=== PATIENT | female | born 1940 | race Caucasian/White ===

== ENCOUNTER 2016-08-29 09:30 | Observation (INO) | payer MEDICARE, OTHER ==
[~2016-08-29] VITALS: Ht 157.5 cm; Wt 79.0 kg
[~2016-08-29 09:30] MED LIST: ACET325T45 PO; ASPI-664 PO; CALC500T99 PO; CANA100T PO; CEPH-443 PO; CLOP75TA27 PO; DEXL60CA2 PO; DICL100G37 TOP; DOCU-103 PO; DONE5TAB7 PO; ERGO500014 PO; FAMO40TA52 PO; GEMF600T60 PO; GLIM4TAB PO; INSU100V23 SC; ISOS30TA18 PO; LANT3I SC; MEMA5TAB PO; METF500T4 PO; METH10TA5 PO; METO50TA16 PO; METO5TAB58 PO; RAMI5CAP46 PO; SMV40T PO; TOLT4CAP13 PO
[2016-08-29] MEDS ORDERED: SOD CHLORIDE 0.9% 1,000 ML IV STA (09:52)
[2016-08-29 10:08] LABS: ADD SCAN DIFF NO
[2016-08-29 10:11] LABS: BASOPHILS % 0.4 % (0.0-2.0); EOSINOPHILS # 0.1 10^3/ul (0.0-0.5); EOSINOPHILS % 2.5 % (0.0-7.0); HEMATOCRIT 38.2 % (37.0-47.0); HEMOGLOBIN 12.6 g/dl (12.0-16.0); LYMPHOCYTES % 17.5 % (15.0-51.0); MEAN CORPUSCULAR HEMOGLOBIN 29.1 pg (29.0-33.0); MEAN CORPUSCULAR VOLUME 88.2 fl (82.0-101.0); MEAN PLATELET VOLUME 9.5 fl (7.4-10.4); MONOCYTE # 0.6 10^3/ul (0.3-0.9); MONOCYTES % 11.6 % (0.0-11.0); NEUTROPHIL # 3.8 10^3/ul (1.6-7.5); NEUTROPHILS % 67.8 % (39.0-77.0); PLATELET COUNT 203 10^3/UL (140-415); RED BLOOD COUNT 4.33 10^6/ul (4.20-5.40); WHITE BLOOD COUNT 5.5 10^3/ul (4.8-10.8)
[2016-08-29 10:23] LABS: INR 0.9; PROTIME 12.1 Sec (12.2-14.2); PT RATIO 0.9
--- NOTE | 2016-08-29 10:23 | RADRPT ---
PROCEDURE: XR Chest. CLINICAL INDICATION: Altered Mental Status TECHNIQUE: Single frontal chest x-ray. COMPARISON: 07/24/2014 FINDINGS: The lungs are clear of acute infiltrates, edema, effusions, or masses. Calcific atherosclerosis of t he aorta is present.. The cardiomediastinal silhouette is unremarkable. The osseous structures are intact. IMPRESSION: No acute cardiopulmonary disease. RPTAT: VV .Eran Mendoza MD, MD Date Time Electronically viewed and signed by .Eran Mendoza MD, on 08/29/2016 10:22 .L/
[2016-08-29 10:24] LABS: PARTIAL THROMBOPLASTIN TIME 25.2 Sec (25.0-35.0)
[2016-08-29 10:25] LABS: ALANINE AMINOTRANSFERASE 26 IU/L (13-69); ALKALINE PHOSPHATASE 83 IU/L (42-121); BLOOD UREA NITROGEN 24 mg/dl (7-20); GLUCOSE 203 mg/dl (70-220)
[2016-08-29 10:26] LABS: SALICYLATE < 1.0 mg/dl (5.0-30.0)
[2016-08-29] MEDS ORDERED: DOCU-144 PO (10:56)
[2016-08-29 10:57] LABS: TROPONIN-I < 0.012 ng/ml (0.00-0.12)
[2016-08-29] MEDS ORDERED: NOVO3I SC (10:59)
[2016-08-29] MEDS ORDERED: LANT3I SC (10:59)
[2016-08-29] MEDS ORDERED: TAP5 PO (11:02)
[2016-08-29] MEDS ORDERED: SPIR25TA PO (11:05)
[2016-08-29] MEDS ORDERED: DICL50TA11 PO (11:06)
[2016-08-29] MEDS ORDERED: ROSU20TA PO (11:07)
[2016-08-29] MEDS ORDERED: ICOS1CAP PO (11:07)
[2016-08-29] MEDS ORDERED: OMEP20CA16 PO (11:08)
[2016-08-29] MEDS ORDERED: FURO-110 PO (11:08)
[2016-08-29] MEDS ORDERED: SITA1TAB PO (11:09)
[2016-08-29] MEDS ORDERED: APR50 PO (11:10)
[2016-08-29] MEDS ORDERED: SOLI5TAB5 PO (11:11)
[2016-08-29] MEDS ORDERED: GABA100C14 PO (11:11)
--- NOTE | 2016-08-29 11:11 | ERA ---
ER Documentation Chief Complaint Date/Time DATE: 08/29/16 TIME: 11:09 Chief Complaint aloc since yest evening HPI 76-year-old female history of diabetes who presents with altered mental status. The patient's daughter describes multiple falls over the past several months that have been increasing in frequency. The patient over the past 24-48 hours has been generally weak. She feels that she cannot move her bilateral lower extremities consistently. The daughter possibly noticed a facial droop earlier this morning with complete resolution. She denies any fevers, chills, chest pain, shortness of breath. ROS All systems reviewed and are negative except as per history of present illness. Medications Home Meds Reported Medications Olopatadine HCl (Pazeo) 2.5 Ml Drops, 2.5 ML BOTH EYES DAILY, BOTTLE 08/29/16 Cyclosporine (RESTASIS) 1 Each Droperette, 1 DROP BOTH EYES Q12, #1 BOX 08/29/16 Triamcinolone Acetonide* (Kenalog*) 0.5%-15GM Cr, 1 APPLIC TOP DAILY, #1 BOTTLE APPLY TO BACK 08/29/16 Solifenacin* (Vesicare*) 5 Mg Tablet, 5 MG PO DAILY, TAB 08/29/16 Gabapentin* (Gabapentin*) 100 Mg Capsule, 100 MG PO BID, #90 CAP 08/29/16 Hydralazine Hcl* (Hydralazine Hcl*) 50 Mg Tab, 50 MG PO TID Y for ELEVATED BLOOD PRESSURE, #90 TAB IF BLOOD PRESSURE IS GREATER THAN 150 08/29/16 Sitagliptin Phos/Metformin HCl (Janumet 50-500 mg Tablet) 1 Each Tablet, 1 EACH PO DAILY, TAB 08/29/16 Furosemide* (Lasix*) 20 Mg Tablet, 20 MG PO DAILY, TAB 08/29/16 Omeprazole* (Omeprazole*) 20 Mg Capsule.dr, 20 MG PO DAILY, #30 CAP 08/29/16 Rosuvastatin Calcium* (Crestor*) 20 Mg Tablet, 20 MG PO QHS, #30 TAB 08/29/16 Icosapent Ethyl (VASCEPA) 1 Gm Capsule, 2 GM PO BID, CAP 08/29/16 Diclofenac Sodium* (Diclofenac Sodium*) 50 Mg Tablet.dr, 50 MG PO BID, #60 TAB 08/29/16 Spironolactone* (Aldactone*) 25 Mg Tablet, 25 MG PO DAILY, #30 TAB 08/29/16 Methimazole* (Methimazole*) 5 Mg Tablet, 5 MG PO DAILY, TAB 08/29/16 Insulin Aspart* (Novolog Insulin Pen*) 100 Unit/Ml Soln, 10 UNIT SC WITH MEALS, EA 08/29/16 Insulin Glargine* (Lantus*) 100 Unit/Ml Soln, 61 UNIT SC DAILY, #1 VIAL 08/29/16 Docusate Sodium* (Colace*) 100 Mg Capsule, 100 MG PO DAILY, #30 CAP 08/29/16 Isosorbide Dinitrate* (Isosorbide Dinitrate*) 30 Mg Tablet, 30 MG PO DAILY, TAB 07/24/14 Famotidine* (Famotidine*) 40 Mg Tablet, 40 MG PO DAILY, TAB 07/24/14 Ramipril (Ramipril) 5 Mg Capsule, 5 MG PO DAILY, CAP 07/24/14 Metoprolol Succinate* (Toprol XL*) 50 Mg Tab.er.24h, 50 MG PO DAILY, TAB 07/24/14 Glimepiride* (Glimepiride*) 4 Mg Tablet, 4 MG PO BID, TAB 07/24/14 Clopidogrel Bisulfate (Clopidogrel) 75 Mg Tablet, 75 MG PO DAILY, TAB 07/24/14 Calcium Carbonate (Mdsh-Dpf-430) 1 Tab Tablet, 1 TAB PO TID 07/24/14 Ergocalciferol* (Drisdol* (Vitamin D2)) 50,000 Unit Capsule, 46206 UNIT PO Q7D, CAP 07/24/14 Aspirin* (Aspirin* EC) 81 Mg Tablet.dr, 81 MG PO DAILY, TAB 07/24/14 Discontinued Reported Medications Methimazole* (Methimazole*) 10 Mg Tablet, 20 MG PO QPM, TAB 07/24/14 Methimazole* (Methimazole*) 10 Mg Tablet, 15 MG PO QAM, TAB 07/24/14 Memantine* (Namenda*) 5 Mg Tablet, 5 MG PO BID, TAB 07/24/14 Insulin Regular, Human* (Novolin R*) 100 U/Ml Vial, 0 SC SLIDING SCALE AC, VIAL 07/24/14 Insulin Glargine* (Lantus*) 100 Unit/Ml Soln, 20 UNIT SC QPM, EA 07/24/14 Insulin Glargine* (Lantus*) 100 Unit/Ml Soln, 50 UNIT SC QAM, EA 07/24/14 Dexlansoprazole (Dexilant) 60 Mg Cap., 60 MG PO DAILY, CAP 07/24/14 Canagliflozin (Invokana) 100 Mg Tablet, 100 MG PO DAILY, TAB 07/24/14 Donepezil* (Donepezil*) 5 Mg Tablet, 5 MG PO DAILY, TAB 07/24/14 Metformin* (Glucophage*) 500 Mg Tab, 500 MG PO BID, TAB 07/24/14 Simvastatin (Simvastatin) 40 Mg Tablet, 40 MG PO HS, TAB 07/24/14 Metoclopramide* (Reglan*) 5 Mg Tablet, 5 MG PO TID, TAB 07/24/14 Gemfibrozil* (Gemfibrozil*) 600 Mg Tablet, 600 MG PO BID, TAB 07/24/14 Acetaminophen* (Acetaminophen*) 325 Mg Tablet, 325 MG PO Q4H Y for PAIN AND OR ELEVATED TEMP, TAB 07/24/14 Docusate Sodium (Docusil) 100 Mg Capsule, 100 MG PO BID 07/24/14 Tolterodine Tartrate* (Tolterodine Tartrate* ER) 4 Mg Cap.er.24h, 4 MG PO DAILY , CAP 07/24/14 Diclofenac Sodium* (Voltaren* Gel) 1% -100 Gm Gel, 2 GM TOP QID, TUB 07/24/14 Discontinued Scripts Cephalexin* (Keflex*) 500 Mg Capsule, 500 MG PO BID for 5 Days, CAP Prov:VIDAL TEMPLETON 07/26/14 Allergies Allergies: Coded Allergies: No Known Allergy (Unverified , 08/29/16) PMhx/Soc History of Surgery: Yes (hysterectomy, appendectomy,cholecystectomy) Anesthesia Reaction: No Hx 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 Disorder: Yes Hx Respiratory Disorders: No Hx Cardiac Disorders: Yes (HTN, CVA ) Hx Psychiatric Problems: Yes Hx Miscellaneous Medical Probl: Yes (DM,hypothyroidism) Hx Alcohol Use: No Hx Substance Use: No Hx Tobacco Use: No Smoking Status: Unknown if ever smoked FmHx Family History: diabetes Physical Exam Vitals Vital Signs Date Time Temp Pulse Resp B/P Pulse Ox O2 Delivery O2 Flow Rate FiO2 08/29/16 13:08 Nasal Cannula 2 08/29/16 13:00 98.3 69 20 150/70 97 Room Air 08/29/16 09:40 97.9 87 20 145/64 94 Physical Exam General: Well developed, well nourished, no acute distress Head: Normocephalic, atraumatic. Eyes: Pupils equally reactive, EOM intact ENT: Moist mucous membranes Neck: Supple, no lymphadenopathy Respiratory: Lungs clear bilaterally, no distress Cardiovascular: RRR, no murmurs, rubs, or gallops Abdominal: Soft, non-tender, non-distended, no peritoneal signs : Deferred MSK: No edema, no unilateral swelling, 4/5 strength diffusely without focal deficits Neurologic: Alert and oriented, moving all extremities, normal speech, no focal weakness, no cerebellar signs, no pronator drift to all 4 extremities Skin: No rash Psych: Normal mood Result Diagram: 08/29/16 1000 08/29/16 1000 Results 24 hrs Laboratory Tests Test 08/29/16 10:00 08/29/16 10:05 08/29/16 10:59 White Blood Count 5.510^3/ul Red Blood Count 4.3310^6/ul Hemoglobin 12.6g/dl Hematocrit 38.2% Mean Corpuscular Volume 88.2fl Mean Corpuscular Hemoglobin 29.1pg Mean Corpuscular Hemoglobin Concent 33.0g/dl Red Cell Distribution Width 14.0% Platelet Count 64023^3/UL Mean Platelet Volume 9.5fl Neutrophils % 67.8% Lymphocytes % 17.5% Monocytes % 11.6% Eosinophils % 2.5% Basophils % 0.4% Nucleated Red Blood Cells % 0.0/100WBC Neutrophils # 3.810^3/ul Lymphocytes # 1.010^3/ul Monocytes # 0.610^3/ul Eosinophils # 0.110^3/ul Basophils # 0.010^3/ul Nucleated Red Blood Cells # 0.010^3/ul Prothrombin Time 12.1Sec Prothrombin Time Ratio 0.9 INR International Normalized Ratio 0.90 Activated Partial Thromboplast Time 25.2Sec Sodium Level 142mmol/L Potassium Level 4.4mmol/L Chloride Level 102mmol/L Carbon Dioxide Level 27mmol/L Anion Gap 17 Blood Urea Nitrogen 24mg/dl Creatinine 1.17mg/dl Glucose Level 203mg/dl Calcium Level 9.0mg/dl Total Bilirubin 0.2mg/dl Direct Bilirubin 0.00mg/dl Indirect Bilirubin 0.2mg/dl Aspartate Amino Transf (AST/SGOT) 24IU/L Alanine Aminotransferase (ALT/SGPT) 26IU/L Alkaline Phosphatase 83IU/L Troponin I < 0.012ng/ml Total Protein 7.1g/dl Albumin 3.8g/dl Globulin 3.30g/dl Albumin/Globulin Ratio 1.15 Free Thyroxine Index 2.91ug/ml Thyroxine (T4) 7.9ug/dl Triiodothyronine (T3) Uptake 36.8% Salicylates Level < 1.0mg/dl Acetaminophen Level < 10.0ug/ml Ethyl Alcohol Level < 10.0mg/dl Bedside Glucose 184mg/dL Urine Color YELLOW Urine Clarity CLEAR Urine pH 5.5 Urine Specific [place] >=1.030 Urine Ketones TRACE Urine Nitrite NEGATIVE Urine Bilirubin NEGATIVE Urine Urobilinogen 0.2 E.U./dL Urine Leukocyte Esterase NEGATIVE Urine Microscopic RBC NONE SEEN/HPF Urine Microscopic WBC NONE SEEN/HPF Urine Hemoglobin NEGATIVE Urine Glucose NEGATIVE% Urine Total Protein TRACE Urine Opiates Screen Negative Urine Barbiturates Negative Urine Amphetamines Screen Negative Urine Benzodiazepines Screen Negative Urine Cocaine Screen Negative Urine Cannabinoids Negative Current Medications Medications (Trade) Dose Ordered Sig/Elizabeth Route PRN Reason Start Time Stop Time Status Last Admin Dose Admin Sodium Chloride (NS) 1,000 ml @ 1,000 mls/hr Q1H STAT IV 08/29/16 09:52 08/29/16 10:51 DC 08/29/16 10:12 Ondansetron HCl (Zofran Inj) 4 mg ER BRIDGE PRN IV NAUSEA AND/OR VOMITING 08/29/16 13:00 08/30/16 12:59 Acetaminophen (Tylenol Tab) 650 mg ER BRIDGE PRN PO MILD PAIN/FEVER 08/29/16 13:00 08/30/16 12:59 Procedures/MDM EKG, MONITORS, & DIAGNOSTIC IMAGING: EKG: I reviewed and interpreted a 12-lead EKG. Rhythm: Normal sinus rhythm Ectopy: None Intervals: No abnormalities ST segments: No elevations or depressions T waves: No contiguous inversions Chest x-ray: I reviewed and interpreted a 1 view of the chest Mediastinum: No enlargement Cardiac silhouette: No cardiomegaly Airspace: Clear lung vargas bilaterally without evidence of pneumothorax Bones: No evidence of fracture CT brain: No acute intracranial process LAB INTERPRETATION: No leukocytosis, negative troponin MEDICAL DECISION MAKING: The patient presents with frequent falls, generalized weakness. Broad differential including urinary tract infection, subacute stroke, TIA, acute coronary syndrome, progression of diabetic neuropathy among others. Given report of possible facial droop with resolution the patient may be at risk for TIA. The patient will benefit from inpatient hospitalization, risk stratification, MRI imaging. No focal deficit currently that would warrant stroke code activation. Patient is not a TPA candidate given rapidly resolving symptoms. NIH of 0 currently. ER COURSE: The patient remains hemodynamically stable. CT imaging is negative. The patient will be admitted for further management. Aspirin provided. Patient will be admitted for further management of weakness, falls, TIA I kept the patient and/or family informed of laboratory and diagnostic imaging results throughout the emergency room course. DISPOSITION PLAN: Telemetry admission for management of potential TIA CONSULTATION: Accepting care team and consultations: I discussed the current laboratory data, diagnostic imaging and emergency care provided. Admitting team: Dr. Suazo Admitting team indication: Insurance directed Departure Diagnosis: Primary Impression: TIA (transient ischemic attack) Qualified Code: G45.9 - Transient cerebral ischemia, unspecified type Additional Impression: Generalized weakness Condition: Stable CONCEPCION OATES MD Aug 29, 2016 11:11
[2016-08-29] MEDS ORDERED: KENC TOP (11:12)
[2016-08-29 11:13] LABS: ADD UMIC YES; URINE BILIRUBIN (Dip) NEGATIVE (NEGATIVE); URINE BLOOD (Dip) NEGATIVE (NEGATIVE); URINE COLOR YELLOW (YELLOW); URINE GLUCOSE (Dip) NEGATIVE (NEGATIVE); URINE KETONES (Dip) TRACE (NEGATIVE); URINE LEUKOCYTE ESTERASE (Dip) NEGATIVE (NEGATIVE); URINE NITRITE (Dip) NEGATIVE (NEGATIVE); URINE TOTAL PROTEIN (Dip) TRACE (NEGATIVE); URINE UROBILINOGEN (Dip) 0.2 E.U./dL (0.1-1.0)
[2016-08-29] MEDS ORDERED: CYCL1DRO BOTH EYES (11:13)
[2016-08-29] MEDS ORDERED: OLOP2.5D5 BOTH EYES (11:14)
[2016-08-29 11:20] LABS: URINE RBCS NONE SEEN /HPF (0)
[2016-08-29 11:51] LABS: BARBITURATES Negative (NEGATIVE); BENZODIAZEPINES Negative (NEGATIVE); CANNABINOIDS Negative (NEGATIVE); COCAINE Negative (NEGATIVE); OPIATES Negative (NEGATIVE)
[2016-08-29 11:56] LABS: ACETAMINOPHEN < 10.0 ug/ml (10.0-30.0); ALBUMIN 3.8 g/dl (3.3-4.9); ALBUMIN/GLOBULIN RATIO 1.15; ANION GAP 17 (8-16); ASPARTATE AMINO TRANSFERASE 24 IU/L (15-46); BILIRUBIN,INDIRECT 0.2 mg/dl (0-1.1); BILIRUBIN,TOTAL 0.2 mg/dl (0.2-1.3); CARBON DIOXIDE 27 mmol/L (21-31); CHLORIDE 102 mmol/L (97-110); CREATININE 1.17 mg/dl (0.44-1.00); ETHANOL < 10.0 mg/dl; POTASSIUM 4.4 mmol/L (3.5-5.1); SODIUM 142 mmol/L (135-144); TOTAL PROTEIN 7.1 g/dl (6.1-8.1)
[2016-08-29 11:57] LABS: T3 UPTAKE 36.8 % (23.5-40.5)
--- NOTE | 2016-08-29 12:12 | RADRPT ---
PROCEDURE: CT Brain without contrast. CLINICAL INDICATION: Altered mental status TECHNIQUE: A CT of the brain was performed on a multidetector CT scanner utilizing axial sections from the skull base through the vertex without contrast. Images were reviewed on a high-resolution [employer] workstation. Exam CTDI = 44.46 mGy and the DLP = 630.20 mGy-cm. One or more of the following dose reduction techniques were used: Automated exposure control Adjustment of the mA and/or kV according to patient size. Use of iterative reconstruction technique. COMPARISON: 07/14/2014 FINDINGS: Moderate cerebral and cerebellar atrophy with a slight central predominance is present. There is pr oportionate dilatation of the ventricular system and sulci in a symmetric fashion. There is prominen ce of the extraaxial spaces secondary to atrophy. There is no evidence of intracranial hemorrhage, m ass effect or midline shift. Chronic lacunar infarcts are seen in the right internal/external capsul e No abnormal intra-axial or extra-axial fluid collections are seen. The density of the brain is no rmal and the pedro/white matter differentiation is well preserved. Mild patchy diffuse deep white ma tter microangiopathic ischemic change is seen. sub centimeter lucencies are seen in the frontal b one, unchanged. The osseous structures are unremarkable. Paranasal sinuses are clear. Vascular calc ifications are identified. There is a small subcutaneous lipoma in the left frontal region, unchange d. IMPRESSION: 1. No intracranial hemorrhage, mass effect or midline shift. 2. Moderate generalized volume loss with slight central predominance. Mild microangiopathic ischem ic change. Chronic lacunar infarcts in the right internal/external capsule. 3. Intracranial atherosclerosis. RPTAT: BB .Krystle Gonzalez MD, Date Time Electronically viewed and signed by .Krystle Gonzalez MD, on 08/29/2016 12:11 .O/
[2016-08-29] MEDS ORDERED: ACETAMINOPHEN 325 MG TAB PO PRN ×2 (13:00→16:30)
[2016-08-29] MEDS ORDERED: ONDANSETRON 4 MG INJ IV PRN ×2 (13:00→16:30)
[2016-08-29] MEDS ORDERED: ASPIRIN 81 MG TAB PO ONE (13:30)
[2016-08-29] MEDS ORDERED: ACYCLOVIR 500 MG in SOD CHLORIDE 0.9% 100 ML IVPB ONE (16:00)
[2016-08-29] MEDS ORDERED: BISACODYL 10 MG SUPP PR PRN (16:30)
[2016-08-29] MEDS ORDERED: NACL 0.9% 3 ML SYG IV SCH (16:30)
[2016-08-29] MEDS ORDERED: morphine 2 MG INJ IV PRN (16:30)
[2016-08-29] MEDS ORDERED: DOCUSATE SODIUM 100 MG CAP PO PRN (16:30)
[2016-08-29] MEDS ORDERED: BISACODYL (EC) 5 MG TAB PO PRN (16:30)
[2016-08-29] MEDS ORDERED: GLUCOSE GEL 15 GRAM TUBE BUCCAL PRN (18:00)
[2016-08-29] MEDS ORDERED: DEXTROSE 50% 50 ML SYRINGE IV PRN ×2 (18:00)
[2016-08-29] MEDS ORDERED: GLUCAGON 1 MG INJ IM PRN (18:00)
[2016-08-29] MEDS ORDERED: GLUCOSE GEL 15 GRAM TUBE PO PRN ×2 (18:00)
[2016-08-29] MEDS: [UNRECOGNIZED DRUG - REMARK] XX SCH (19:00)
[2016-08-29] MEDS: [UNRECOGNIZED DRUG - REMARK] XX SCH (19:00)
--- NOTE | 2016-08-29 19:07 | RADRPT ---
PROCEDURE: MR Brain without contrast. CLINICAL INDICATION: Altered mental status TECHNIQUE: An MRI of the brain was performed on a 1.5 malachi scanner utilizing the following sequen yue: Sagittal T1 weighted, axial T2 weighted, axial FLAIR, coronal GRE, and axial diffusion weighted with ADC mapping. COMPARISON: CT brain 08/29/2016 and 07/24/2014. FINDINGS: Foci of increased signal on diffusion weighted imaging in the right parietal lobe, left parietal lob e, right and peritrigonal white matter, and subcortical white matter of the left frontal lobe . Mul tiple of these foci demonstrate corresponding signal loss on ADC map compatible with the areas most compatible with the restricted diffusion and acute/subacute ischemic infarction and micro embolic et iology. T2 shine through for several of the foci is considered less likely. There is no evidence of intracranial hemorrhage, mass effect, or midline shift. No extra-axial fluid collections are seen. No hypointense signal abnormalities are seen on the GRE images to suggest the presence of blood degr adation products. Extensive patchy and confluent T2 signal hyperintensity foci throughout the deep white matter most c ompatible with sequelae of chronic microvascular ischemic injury. Moderate prominence of the ventri cles and subarachnoid spaces compatible with central cerebral volume loss. Remote right spencer radi rosalinda lacunar infarct. Age appropriate size of the ventricles and subarachnoid spaces. The posterior fossa contents, brainstem, seventh - eighth cranial nerve complexes, pituitary axis, o rbits, paranasal sinuses, and mastoid air cells are unremarkable. Normal flow voids are visible in the proximal intracranial arteries and dural sinuses, indicating pa tency. IMPRESSION: 1. Multiple small foci of restricted diffusion in the subcortical and periventricular white matter m ost compatible with ischemic infarcts and microbiology etiology. 2. No intracranial hemorrhage, edema, mass effect, or shift. 3. Chronic microvascular ischemic change of the deep white matter and moderate central cerebral vol ume loss. RPTAT:AAJJ Physician Fina Date Time Electronically viewed and signed by Physician Fina on 08/29/2016 19:06 CONNOR/
[2016-08-29] MEDS: INSULIN ASPART [NOVOLOG] 3 ML PEN SC SCH ×2 (20:25→21:00)
[2016-08-29 20:40] VITALS: TEMP 98.6
[2016-08-29 21:00] VITALS: Ht 157.5 cm; Wt 79.0 kg
[2016-08-29] MEDS ORDERED: NON-FORMULARY/PATIENT OWN MED (Icosapent Ethyl (Vascepa) 2 GM) XX SCH (21:00)
[2016-08-29] MEDS: CYCLOSPORINE 0.05% OPH DROPERETTE BOTH EYES SCH (21:00)
[2016-08-29 21:02] VITALS: PULSE 83
[2016-08-29 21:40] VITALS: BP 167/77; RESP 18
[2016-08-29] MEDS: GABAPENTIN 100 MG CAP PO SCH (21:53)
[2016-08-29] MEDS: FAMOTIDINE 20 MG TAB PO SCH (21:53)
[2016-08-29] MEDS: ATORVASTATIN 80 MG TAB PO SCH (21:53)
[2016-08-29] MEDS: SOD CHLORIDE 0.45% 1,000 ML IV SCH (22:40)
[2016-08-29 23:59] VITALS: BP 166/90; RESP 19
[2016-08-30] VITALS (12 sets, daily range): BP systolic 143–187; BP diastolic 69–112; PULSE 78–92; RESP 20
[2016-08-30] MEDS: [UNRECOGNIZED DRUG - REMARK] XX SCH ×3 (03:00→19:00)
[2016-08-30] MEDS: [UNRECOGNIZED DRUG - REMARK] XX SCH ×3 (03:00→19:00)
--- NOTE | 2016-08-30 06:49 | HP ---
DATE OF ADMISSION: 08/29/2016 PRIMARY CARE PHYSICIAN: Pending. CHIEF COMPLAINT: Altered mental status. HISTORY OF PRESENT ILLNESS: This is a 76-year-old female who has had gait dysfunction for 1 to 2 da ys, with mechanical falls. Apparently, at some point she had lost her speech and the daughter saw a partial droop. She was in the emergency room earlier and could not state her orientation. Since t hen this has resolved and it has improved. She is nonfocal on exam. There is probable underlying cognitive impairment. PAST MEDICAL HISTORY: Hypertension, TIA versus stroke, DJD, probable mild cognitive impairment, diab etes, metabolic syndrome, dyslipidemia, hyperthyroidism, mild cognitive impairment versus dementia. PAST SURGICAL HISTORY: Appendectomy, hysterectomy, cholecystectomy. SOCIAL HISTORY: No tobacco or alcohol. FAMILY HISTORY: There is no family history of early coronary artery disease, cancer, or stroke. ALLERGIES: NO KNOWN DRUG ALLERGIES. REVIEW OF SYSTEMS: NEUROLOGICAL: No headache. Positive loss of speech, no loss of vision. CARDIOVASCULAR: No chest pain, no dyspnea, no edema. LUNGS: No cough, no wheezing, no fever. ABDOMEN: No pain, nausea, vomiting or diarrhea. GENITOURINARY: No abdominal pain, no fever, no dysuria. MUSCULOSKELETAL: Moderate gait dysfunction. No rash, no itching, no edema. CONSTITUTIONAL: No fevers, no chills, no weight loss. HEMATOLOGIC: No hematochezia, no hematuria. PSYCHIATRIC: The patient has a stable mood, did not seem agitated, anxiety or depression. She is no t oriented. PHYSICAL EXAMINATION: HEENT: Extraocular movements are intact. No pallor, no icterus, no adenopathy, no carotid bruits, no JVD. There may be a mild droop. CARDIOVASCULAR: S1, S2 regular. No murmur, rub, or gallop appreciated. LUNGS: Clear to auscultation bilaterally. ABDOMEN: Bowel sounds present, nontender, nondistended. No rigidity, no rebound or guarding. EXTREMITIES: Without edema. NEUROLOGICAL SYSTEM: Cranial nerves II through XII are grossly intact. Motor 5/5 x4. Sensory symme trical. Reflexes symmetrical, Babinski's none. Straight leg raising test greater than 45 bilaterally. ASSESSMENT: 1. Acute confusional state, likely TIA. No evidence of incontinence, tongue bite, etc. 2. Dementia with delirium. 3. Gait dysfunction. No evidence for spinal stenosis. 4. Diabetes and metabolic syndrome. 5. Probable history of stroke or TIA. PLAN: Admit to tele. MRI, carotids and echo. Rule out arrhythmia. At this time secondary risk fa ctor modification will be the main benefit, including vascular planning. Continue aspirin, Plavix. Reevaluate sugars, cholesterol, etc. Check a TSH, B12. Start physical therapy and may check a L/S spine x-ray. Continue Lovenox and ambulate. DISPOSITION: Potentially home. Reevaluate medications. Continue assistance of ADLs due to dementia . LABORATORY: CBC unremarkable. CMP unremarkable. There may be some chronic kidney disease. Chest x-ray: No acute process. CAT scan of the brain: No acute process. There are microangiopath ic ischemic changes, chronic lacunar infarcts. MRI of the brain actually does not show any acute pr ocess, but there are concerns of acute/subacute ischemic infarction and etiology. May need to place on Coumadin; however, fall risk event, and therefore we will not use Coumadin at this time. C ontinue secondary prevention. Dictated By: RAQUEL PROCTOR MD AC/NTS Conf#: [id number] DID#: [id number]
[2016-08-30 08:33] LABS: ADD SCAN DIFF NO
[2016-08-30 08:49] LABS: BASOPHILS % 0.6 % (0.0-2.0); EOSINOPHILS # 0.1 10^3/ul (0.0-0.5); EOSINOPHILS % 2.2 % (0.0-7.0); HEMATOCRIT 38.3 % (37.0-47.0); HEMOGLOBIN 12.7 g/dl (12.0-16.0); LYMPHOCYTES % 27.4 % (15.0-51.0); MEAN CORPUSCULAR HEMOGLOBIN 28.5 pg (29.0-33.0); MEAN CORPUSCULAR HGB CONC 33.2 g/dl (32.0-37.0); MEAN CORPUSCULAR VOLUME 86.1 fl (82.0-101.0); MEAN PLATELET VOLUME 9.6 fl (7.4-10.4); MONOCYTE # 0.5 10^3/ul (0.3-0.9); MONOCYTES % 13.7 % (0.0-11.0); NEUTROPHILS % 55.8 % (39.0-77.0); PLATELET COUNT 201 10^3/UL (140-415); RED BLOOD COUNT 4.45 10^6/ul (4.20-5.40); RED CELL DISTRIBUTION WIDTH 13.6 % (11.5-14.5); WHITE BLOOD COUNT 3.6 10^3/ul (4.8-10.8)
[2016-08-30] MEDS ORDERED: FAMOTIDINE 20 MG TAB PO SCH (09:00)
[2016-08-30] MEDS ORDERED: NON-FORMULARY/PATIENT OWN MED (Olopatadine HCl (Pazeo) 2.5 ML) XX SCH (09:00)
[2016-08-30] MEDS: CYCLOSPORINE 0.05% OPH DROPERETTE BOTH EYES SCH ×2 (09:07→20:01)
[2016-08-30] MEDS: FAMOTIDINE 20 MG TAB PO SCH ×2 (09:07→20:00)
[2016-08-30] MEDS: ASPIRIN (EC) 81 MG TAB PO SCH (09:07)
[2016-08-30] MEDS: CLOPIDOGREL 75 MG TAB PO SCH (09:07)
[2016-08-30] MEDS: SOLIFENACIN 5 MG TAB PO SCH (09:07)
[2016-08-30] MEDS: GABAPENTIN 100 MG CAP PO SCH ×2 (09:07→20:01)
[2016-08-30] MEDS: ISOSORBIDE MONONITRATE(SR)30 MG TAB PO SCH (09:08)
[2016-08-30] MEDS: TRIAMCINOLONE ACET 0.5% 15 GM CR TOP SCH (09:08)
[2016-08-30] MEDS: ENOXAPARIN 40 MG/0.4 ML SYG SC SCH (09:09)
[2016-08-30] MEDS: SOD CHLORIDE 0.45% 1,000 ML IV SCH (09:11)
[2016-08-30] MEDS: INSULIN ASPART [NOVOLOG] 3 ML PEN SC SCH ×4 (09:11→20:06)
--- NOTE | 2016-08-30 09:29 | RADRPT ---
PROCEDURE: Carotid ultrasound CLINICAL INDICATION: Transient ischemic attack, stroke, carotid bruits TECHNIQUE: Pedraza scale, color doppler, spectral doppler ultrasound of the bilateral carotid and zehra tebral arteries. This study indirectly references the measurement of the distal ICA diameter as the denominator for s tenosis measurement. Validated velocity measurements with angiographic measurements, velocity criter ia are extrapolated from diameter data as defined by: *Cartoid artery stenosis: pedraza-scale and Doppl er US diagnosis. Society of Radiologists in Ultrasound Consensus Conference. Radiology 2003; 229: 34 0-346. SRU Consensus Conference Criteria for the Diagnosis of Carotid Artery Stenosis* Degree of Stenosis, % ICA PSV, cm/sec Plaque Estimate, % ICA/CCA PSV Ratio Normal <125 None <2.0 <50 <125 <50 <2.0 50 69 125-230 >50 2.0-4.0 >70 but less than near occlusion >230 >50 <4.0 Near occlusion High, low, or undetectable Visible Variable Total occlusion Undetectable Visible, no detectable lumen Not applicable COMPARISON: No prior studies are available for comparison. FINDINGS: Location Right CCA55 cm/sec Prox ICA 37 cm/sec Mid ICA51 cm/sec Dist ICA37 cm/sec ECA67 cm/sec ICA/CCA0.9 Left CCA50 cm/sec Prox ICA 43 cm/sec Mid ICA37 cm/sec Dist ICA48 cm/sec ECA67 cm/sec ICA/CCA1.0 Plaque burden: A minimal amount of plaque is present within the visualized portions of both internal carotid arteries however there is no evidence of flow acceleration to suggest a hemodynamically sig nificant stenosis. Antegrade flow is seen within the vertebral arteries bilaterally. IMPRESSION: A minimal amount of plaque is present within the visualized portions of both internal carotid arteri es however there is no evidence of flow acceleration to suggest a hemodynamically significant stenos is. RPTAT: AADD .Kaleb Guadalupe MD, MD Date Time Electronically viewed and signed by .Kaleb Guadalupe MD, on 08/30/2016 09:28 .B/
[2016-08-30 09:31] LABS: ALBUMIN 3.9 g/dl (3.3-4.9)
[2016-08-30 09:33] LABS: CREATININE 0.9 mg/dl (0.44-1.00)
[2016-08-30 09:34] LABS: ALBUMIN/GLOBULIN RATIO 1.11; BILIRUBIN,INDIRECT 0.5 mg/dl (0-1.1); BILIRUBIN,TOTAL 0.5 mg/dl (0.2-1.3); PHOSPHORUS 3.1 mg/dl (2.5-4.9); TOTAL PROTEIN 7.4 g/dl (6.1-8.1)
[2016-08-30 09:35] LABS: MAGNESIUM 1.5 mg/dl (1.7-2.5)
[2016-08-30 10:03] LABS: THYROID STIMULATING HORMONE 1.9 MIU/L (0.465-4.680)
[2016-08-30] MEDS ORDERED: NON-FORMULARY/PATIENT OWN MED (Ramipril 5 MG) PO SCH (10:30)
[2016-08-30] MEDS: METOPROLOL (XL) 50 MG TAB PO SCH (10:30)
[2016-08-30] MEDS: METHIMAZOLE 5 MG TAB PO SCH (10:30)
--- NOTE | 2016-08-30 12:24 | PN ---
Date/Time of Note Date/Time of Note DATE: 08/30/16 TIME: 12:19 Assessment/Plan VTE Prophylaxis VTE Prophylaxis Intervention: LMWH Lines/Catheters IV [facility] Peripheral IV Urinary Cath still in place: No Assessment/Plan Chief Complaint/Hosp Course Subjective: Delirium, trying to run away. Refuses telemetry Accu-Cheks. No family at bedside. Objective: Vital signs stable no arrhythmias Physical exam No pallor droop Deferred/agitated Assessment and plan 1. TIA vs stroke. Rfm. Stable anticipate dc home tomorrow. Echo pending carotids ok, no arrhythmia. 2. Dementia with delirium. Needs advanced care planning evaluated 3. Diabetes/metabolic syndrome/dyslipidemia 4. Hypertension 5. Chronic hyperthyroidism 6. Mechanical fall. Home safety PT DME if needed 7. History of stroke 8. DJD Problems: Exam/Review of Systems Vital Signs Vitals Vital Signs Date Time Temp Pulse Resp B/P Pulse Ox O2 Delivery O2 Flow Rate FiO2 08/30/16 12:14 97.8 87 20 187/93 94 08/29/16 20:40 Room Air 08/29/16 13:08 2 Intake and Output 08/29/16 08/29/16 08/30/16 15:00 23:00 07:00 Intake Total 1000 ml 200 ml Balance 1000 ml 200 ml Results Result Diagram: 08/30/1618 08/30/1618 Results 24 hrs Laboratory Tests Test 08/29/16 21:56 08/30/16 07:18 08/30/16 08:29 Bedside Glucose 110 201 White Blood Count 3.6 #L Red Blood Count 4.45 Hemoglobin 12.7 Hematocrit 38.3 Mean Corpuscular Volume 86.1 Mean Corpuscular Hemoglobin 28.5 L Mean Corpuscular Hemoglobin Concent 33.2 Red Cell Distribution Width 13.6 Platelet Count 201 Mean Platelet Volume 9.6 Neutrophils % 55.8 Lymphocytes % 27.4 Monocytes % 13.7 H Eosinophils % 2.2 Basophils % 0.6 Nucleated Red Blood Cells % 0.0 Neutrophils # 2.0 Lymphocytes # 1.0 Monocytes # 0.5 Eosinophils # 0.1 Basophils # 0.0 Nucleated Red Blood Cells # 0.0 Sodium Level 135 Potassium Level 4.0 Chloride Level 102 Carbon Dioxide Level 22 Anion Gap 15 Blood Urea Nitrogen 14 # Creatinine 0.90 Glucose Level 196 Hemoglobin A1c 8.4 H Calcium Level 9.0 Phosphorus Level 3.1 Magnesium Level 1.5 L Total Bilirubin 0.5 Direct Bilirubin 0.00 Indirect Bilirubin 0.5 Aspartate Amino Transf (AST/SGOT) 26 Alanine Aminotransferase (ALT/SGPT) 30 Alkaline Phosphatase 95 Total Protein 7.4 Albumin 3.9 Globulin 3.50 H Albumin/Globulin Ratio 1.11 Thyroid Stimulating Hormone (TSH) 1.910 Medications Medications Current Medications Aspirin (Halfprin) 81 mg DAILY PO Last administered on 08/30/16 09:07; Admin Dose 81 MG; Start 08/30/16 at 09:00 Clopidogrel Bisulfate (plaVIX) 75 mg DAILY PO Last administered on 08/30/16 09 :07; Admin Dose 75 MG; Start 08/30/16 at 09:00 Cyclosporine (Restasis) 1 drop Q12 BOTH EYES Last administered on 08/30/16 09: 07; Admin Dose 1 DROP; Start 08/29/16 at 21:00 Gabapentin (Neurontin) 100 mg BID PO Last administered on 08/30/16 09:07; Admin Dose 100 MG; Start 08/29/16 at 21:00 Isosorbide Mononitrate (Imdur) 30 mg DAILY PO Last administered on 08/30/16 09 :08; Admin Dose 30 MG; Start 08/30/16 at 09:00 Solifenacin (Vesicare) 5 mg DAILY PO Last administered on 08/30/16 09:07; Admin Dose 5 MG; Start 08/30/16 at 09:00 Triamcinolone Acetonide (Kenalog 0.5% Cr) 1 applic DAILY TOP Last administered on 08/30/16 09:08; Admin Dose 1 APPLIC; Start 08/30/16 at 09:00 Miscellaneous Information 2 gm BID XX ; Start 08/29/16 at 21:00; Status UNV Miscellaneous Information 2.5 ml DAILY XX ; Start 08/30/16 at 09:00; Status UNV Atorvastatin Calcium (Lipitor) 80 mg DAILY@21 PO Last administered on 21:53; Admin Dose 80 MG; Start 08/29/16 at 21:00 Ondansetron HCl (Zofran Inj) 4 mg Q6H PRN IV NAUSEA AND/OR VOMITING; Start at 16:30 Acetaminophen (Tylenol Tab) 650 mg Q6H PRN PO PAIN LEVEL 1-3 OR FEVER; Start at 16:30 Acetaminophen/ Hydrocodone Bitart ([place] (5/325)) 1 tab Q6H PRN PO MODERATE PAIN LEVEL 4-6; Start 08/29/16 at 16:30 Morphine Sulfate (morphine) 2 mg Q4H PRN IV SEVERE PAIN LEVEL 7-10; Start 08/29 at 16:30 Docusate Sodium (Colace) 100 mg Q12H PRN PO CONSTIPATION; Start 08/29/16 at 16: 30 Bisacodyl (Dulcolax) 5 mg DAILY PRN PO CONSTIPATION; Start 08/29/16 at 16:30 Bisacodyl (Dulcolax Supp) 10 mg DAILY PRN [place] CONSTIPATION; Start 08/29/16 at 16 :30 Famotidine (Pepcid) 20 mg Q12 PO Last administered on 08/30/16 09:07; Admin Dose 20 MG; Start 08/29/16 at 21:00 Enoxaparin Sodium (Lovenox) 40 mg DAILY SC Last administered on 08/30/16 09:09 ; Admin Dose 40 MG; Start 08/30/16 at 09:00 Miscellaneous Information 1 ea NOTE XX ; Start 08/29/16 at 18:00 Glucose (Glutose) 15 gm Q15M PRN PO DECREASED GLUCOSE; Start 08/29/16 at 18:00 Glucose (Glutose) 22.5 gm Q15M PRN PO DECREASED GLUCOSE; Start 08/29/16 at 18: 00 Dextrose (D50w Syringe) 25 ml Q15M PRN IV DECREASED GLUCOSE; Start 08/29/16 at 18:00 Dextrose (D50w Syringe) 50 ml Q15M PRN IV DECREASED GLUCOSE; Start 08/29/16 at 18:00 Glucagon (Glucagen) 1 mg Q15M PRN IM DECREASED GLUCOSE; Start 08/29/16 at 18:00 Glucose (Glutose) 15 gm Q15M PRN BUCCAL DECREASED GLUCOSE; Start 08/29/16 at 18 :00 Miscellaneous Information (*Order Clarification Bulletin) MEDICATION REQUIRES CLARIFICATION: Q8H XX ; Start 08/29/16 at 19:00 Miscellaneous Information (*Order Clarification Bulletin) MEDICATION REQUIRES CLARIFICATION: Q8H XX ; Start 08/29/16 at 19:00 Methimazole (Tapazole) 5 mg DAILY PO ; Start 08/30/16 at 10:30 Metoprolol Succinate (Toprol Xl) 50 mg DAILY PO ; Start 08/30/16 at 10:30 Miscellaneous Information 5 mg DAILY PO ; Start 08/30/16 at 10:30; Status UNV RAQUEL PROCTOR MD Aug 30, 2016 12:24
--- NOTE | 2016-08-30 13:15 | RADRPT ---
PROCEDURE: XR Lumbar Spine. CLINICAL INDICATION: Back pain. TECHNIQUE: AP, lateral and cone-down lateral view of the lumbar spine were obtained. COMPARISON: CT scan abdomen pelvis 07/24/2014. FINDINGS: The bony elements are rarefied. There are degenerative osteophytes in the thoracic and lumbosacral spine. There is endplate softening of L2 which is unchanged. There are ventral bridging osteophyte s at L1-2. The neural canal is normal in size. There are vascular calcifications in the mid and lo wer abdominal aorta. No significant changes noted compared to the prior CT scan. IMPRESSION: 1. 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 2. Endplate softening with mild old compression fracture at L1 which is unchanged with 15% loss of central body height. 3. Atherosclerotic vascular disease. RPTAT:AAJJ Physician David Date Time Electronically viewed and signed by Physician David on 08/30/2016 13:15 /
[2016-08-30] MEDS ORDERED: hydrALAzine 20 MG INJ IV PRN (13:30)
[2016-08-30] MEDS: HYDROCODONE/APAP (5/325) TAB PO PRN (15:50)
[2016-08-30] MEDS: BENAZEPRIL 20 MG TAB PO SCH (20:00)
[2016-08-30] MEDS: DOCUSATE SODIUM 100 MG CAP PO SCH (20:00)
[2016-08-30] MEDS: ATORVASTATIN 80 MG TAB PO SCH (20:00)
[2016-08-31] VITALS (10 sets, daily range): BP systolic 140–173; BP diastolic 65–97; PULSE 87–90; RESP 18–24
[2016-08-31] MEDS: [UNRECOGNIZED DRUG - REMARK] XX SCH ×3 (02:14→19:00)
[2016-08-31] MEDS: [UNRECOGNIZED DRUG - REMARK] XX SCH ×3 (02:14→19:00)
[2016-08-31] MEDS: METOPROLOL (XL) 50 MG TAB PO SCH (09:00)
[2016-08-31] MEDS: CYCLOSPORINE 0.05% OPH DROPERETTE BOTH EYES SCH ×2 (09:00→21:00)
[2016-08-31] MEDS: GABAPENTIN 100 MG CAP PO SCH ×2 (09:00→21:00)
[2016-08-31] MEDS: ASPIRIN (EC) 81 MG TAB PO SCH (09:00)
[2016-08-31] MEDS: ISOSORBIDE MONONITRATE(SR)30 MG TAB PO SCH (09:00)
[2016-08-31] MEDS: FAMOTIDINE 20 MG TAB PO SCH (09:00)
[2016-08-31] MEDS: SOLIFENACIN 5 MG TAB PO SCH (09:00)
[2016-08-31] MEDS: BENAZEPRIL 20 MG TAB PO SCH (09:00)
[2016-08-31] MEDS: CLOPIDOGREL 75 MG TAB PO SCH (09:00)
[2016-08-31] MEDS: METHIMAZOLE 5 MG TAB PO SCH (09:00)
[2016-08-31] MEDS: TRIAMCINOLONE ACET 0.5% 15 GM CR TOP SCH (09:20)
[2016-08-31] MEDS: HYDROCODONE/APAP (5/325) TAB PO PRN ×2 (09:22→09:30)
[2016-08-31] MEDS: INSULIN ASPART [NOVOLOG] 3 ML PEN SC SCH ×4 (09:28→22:14)
[2016-08-31] MEDS: ENOXAPARIN 40 MG/0.4 ML SYG SC SCH (09:29)
--- NOTE | 2016-08-31 12:05 | PN ---
Date/Time of Note Date/Time of Note DATE: 08/31/16 TIME: 12:02 Assessment/Plan VTE Prophylaxis VTE Prophylaxis Intervention: LMWH Lines/Catheters IV Catheter Type (from Nrs): Saline Lock Urinary Cath still in place: No Assessment/Plan Chief Complaint/Hosp Course Subjective: 08/30 delirium, trying to run away. Refuses telemetry Accu-Cheks. No family at bedside. 08/31 delirium somewhat improved. Follows some one-step commands. Still agitated with dementia/delirium. Pending bubble study tomorrow. Objective: Vss Physical exam No pallor droop S1-S2 regular, no murmur rub gallop CTAB Bs+nt nd, no RRG No edema Neuro: Nonfocal Assessment and plan 1. TIA vs stroke. Rfm. Stable dc home tomorrow, once Echo bubble study is back. carotid -ve, no arrhythmia. [facility] health; safety/PT/OT -Fall risk, management will not change. Not a candidate for Coumadin for now due to fall risk. Reevaluate in future. 2. Dementia with delirium. We orientation/reassurance, avoid benzos, ambulate. Needs advanced care planning evaluated 3. Diabetes/metabolic syndrome/dyslipidemia 4. Hypertension 5. Chronic hyperthyroidism 6. Mechanical fall. Home safety PT DME if needed 7. History of stroke 8. DJD Problems: Exam/Review of Systems Vital Signs Vitals Vital Signs Date Time Temp Pulse Resp B/P Pulse Ox O2 Delivery O2 Flow Rate FiO2 08/31/16 08:15 87 08/31/16 08:04 98.3 24 173/97 94 08/29/16 20:40 Room Air 08/29/16 13:08 2 Intake and Output 08/30/16 08/30/16 08/31/16 15:00 23:00 07:00 Intake Total 500 ml 400 ml Balance 500 ml 400 ml Results Result Diagram: 08/30/16 0718 08/30/16 0718 Results 24 hrs Laboratory Tests Test 08/30/16 17:21 08/30/16 20:02 08/31/16 08:24 Bedside Glucose 203 215 262 H Medications Medications Current Medications Aspirin (Halfprin) 81 mg DAILY PO Last administered on 08/30/16t 09:07; Admin Dose 81 MG; Start 08/30/16 at 09:00 Clopidogrel Bisulfate (plaVIX) 75 mg DAILY PO Last administered on 08/30/16 09 :07; Admin Dose 75 MG; Start 08/30/16 at 09:00 Cyclosporine (Restasis) 1 drop Q12 BOTH EYES Last administered on 08/30/16 20: 01; Admin Dose 1 DROP; Start 08/29/16 at 21:00 Gabapentin (Neurontin) 100 mg BID PO Last administered on 08/30/16 20:01; Admin Dose 100 MG; Start 08/29/16 at 21:00 Isosorbide Mononitrate (Imdur) 30 mg DAILY PO Last administered on 08/30/16 09 :08; Admin Dose 30 MG; Start 08/30/16 at 09:00 Solifenacin (Vesicare) 5 mg DAILY PO Last administered on 08/30/16 09:07; Admin Dose 5 MG; Start 08/30/16 at 09:00 Triamcinolone Acetonide (Kenalog 0.5% Cr) 1 applic DAILY TOP Last administered on 08/31/16 09:20; Admin Dose 1 APPLIC; Start 08/30/16 at 09:00 Miscellaneous Information 2 gm BID XX ; Start 08/29/16 at 21:00; Status UNV Miscellaneous Information 2.5 ml DAILY XX ; Start 08/30/16 at 09:00; Status UNV Atorvastatin Calcium (Lipitor) 80 mg DAILY@21 PO Last administered on 20:00; Admin Dose 80 MG; Start 08/29/16 at 21:00 Ondansetron HCl (Zofran Inj) 4 mg Q6H PRN IV NAUSEA AND/OR VOMITING Last administered on 08/30/16 19:37; Admin Dose 4 MG; Start 08/29/16 at 16:30 Acetaminophen (Tylenol Tab) 650 mg Q6H PRN PO PAIN LEVEL 1-3 OR FEVER; Start at 16:30 Acetaminophen/ Hydrocodone Bitart (Universal (5/325)) 1 tab Q6H PRN PO MODERATE PAIN LEVEL 4-6 Last administered on 08/30/16 15:50; Admin Dose 1 TAB; Start at 16:30 Morphine Sulfate (morphine) 2 mg Q4H PRN IV SEVERE PAIN LEVEL 7-10; Start 08/29 at 16:30 Docusate Sodium (Colace) 100 mg Q12H PRN PO CONSTIPATION; Start 08/29/16 at 16: 30 Bisacodyl (Dulcolax) 5 mg DAILY PRN PO CONSTIPATION; Start 08/29/16 at 16:30 Bisacodyl (Dulcolax Supp) 10 mg DAILY PRN [place] CONSTIPATION; Start 08/29/16 at 16 :30 Famotidine (Pepcid) 20 mg Q12 PO Last administered on 08/30/16 20:00; Admin Dose 20 MG; Start 08/29/16 at 21:00 Enoxaparin Sodium (Lovenox) 40 mg DAILY SC Last administered on 08/31/16 09:29 ; Admin Dose 40 MG; Start 08/30/16 at 09:00 Miscellaneous Information 1 ea NOTE XX ; Start 08/29/16 at 18:00 Glucose (Glutose) 15 gm Q15M PRN PO DECREASED GLUCOSE; Start 08/29/16 at 18:00 Glucose (Glutose) 22.5 gm Q15M PRN PO DECREASED GLUCOSE; Start 08/29/16 at 18: 00 Dextrose (D50w Syringe) 25 ml Q15M PRN IV DECREASED GLUCOSE; Start 08/29/16 at 18:00 Dextrose (D50w Syringe) 50 ml Q15M PRN IV DECREASED GLUCOSE; Start 08/29/16 at 18:00 Glucagon (Glucagen) 1 mg Q15M PRN IM DECREASED GLUCOSE; Start 08/29/16 at 18:00 Glucose (Glutose) 15 gm Q15M PRN BUCCAL DECREASED GLUCOSE; Start 08/29/16 at 18 :00 Miscellaneous Information (*Order Clarification Bulletin) MEDICATION REQUIRES CLARIFICATION: Q8H XX ; Start 08/29/16 at 19:00 Miscellaneous Information (*Order Clarification Bulletin) MEDICATION REQUIRES CLARIFICATION: Q8H XX ; Start 08/29/16 at 19:00 Methimazole (Tapazole) 5 mg DAILY PO ; Start 08/30/16 at 10:30 Metoprolol Succinate (Toprol Xl) 50 mg DAILY PO ; Start 08/30/16 at 10:30 Docusate Sodium (Colace) 100 mg HS PO Last administered on 08/30/16 20:00; Admin Dose 100 MG; Start 08/30/16 at 21:00 Hydralazine HCl (Apresoline) 5 mg Q4H PRN IV ELEVATED SYSTOLIC BP; Start at 13:30 Benazepril HCl (Lotensin) 20 mg DAILY PO Last administered on 08/30/16t 20:00; Admin Dose 20 MG; Start 08/30/16 at 20:00 RAQUEL PROCTOR MD Aug 31, 2016 12:05
--- NOTE | 2016-08-31 12:08 | PDOCDIS ---
Discharge Instructions DIAGNOSIS Discharge Diagnosis: TIA CONDITION Patient Condition: Stable HOME CARE INSTRUCTIONS: Special Diet: carb controlled ACTIVITY: Activity Restrictions: Slowly Increase Activity Do not Drive FOLLOW UP/APPOINTMENTS Appointments Appointment primary 1 week. Needs to discuss advanced care planning with primary. High risk of future stroke. Social service for caregiver or future placement assistance. Referral to neurology in 2 weeks. RAQUEL PROCTOR MD Aug 31, 2016 12:08
[2016-08-31] MEDS ORDERED: ACYC800T PO (12:24)
[2016-08-31] MEDS: ACYCLOVIR 800 MG TAB PO SCH ×3 (15:00→22:13)
--- NOTE | 2016-08-31 18:37 | DS ---
DATE OF ADMISSION: 08/29/2016 DATE OF DISCHARGE: 08/31/2016 PRIMARY CARE PHYSICIAN: Unknown. HADOOP ANALYST: None. DIAGNOSIS ON ADMISSION: Transient ischemic attack. DIAGNOSES ON DISCHARGE: 1. Acute stroke. 2. Dementia with delirium. 3. Hypertension. 4. Diabetes. 5. Metabolic syndrome. 6. Old compression fracture of L1. 7. Chronic hyperthyroidism. 8. Degenerative joint disease. HOSPITAL COURSE: This is a 76-year-old female admitted with altered mental status, transient aphasi a, slurred speech, and mechanical falls. She was seen in neurology in the emergency room. No need for TPA. CAT scan negative for bleed. She was evaluated in the hospital for another 48 hours. No further reoccurrence. Her speech actually returned in the ER. On the next day, the patient had wor sening dementia with delirium. Today, it is better. Etiology is likely TIA. The patient has alrea dy been optimized by beta bebo, NEGIN inhibitor, statin, and Plavix. She has a high risk of future event. Her carotids are negative. No AFib or arrhythmia. There is a question of on the MRI of ca rdioembolic disease. A 2D echo final result is pending. We will consider Coumadin in her future. At this time, she is not a candidate for Coumadin due to fall risk. There is also dementia with del irium and medication nonadherence. Some of this will be optimized with time and assistance from sidney viveros, but in all honesty, her prognosis is limited due to dementia. The patient is not a candidate for acute rehabilitation, as she is able to tolerate 3 hours daily ph ysical therapy, partly due to her deconditioning and gait dysfunction, but partly because of her dem entia and delirium. The patient is mid-mod assist with mobility and transfers. Has a walker at [facility]. ____ wants her to walk without the walker. Recommend front-wheel walker for discharge, of which I think they already have at home. If she is deemed not a fall risk in her future, one could consider Coumadin. In terms of dementia and delirium, it will be improved at home and obviously in a home environment. Reorientation, reassurance as needed. The patient needs advanced care planning established, as she has a high risk of future stroke and obvious present dementia. LABORATORY DATA: CBC unremarkable. INR 0.9. Urine unremarkable. Urine toxicity screen unremarkab le. CMP unremarkable except A1c at 8.4, not at goal. TSH 1.9. Free T4 not done, T3 not done. LFT s okay. Cultures unremarkable. Carotid ultrasound unremarkable. Chest x-ray: Cardiomegaly. No a cute process. LS spine x-ray was read as ____ of bony elements with ventral spondylosis at L1-2. E ndplate softening with mild old compression fracture of L1, which is unchanged with 15% loss of cent ral height. This is in comparison to imaging done in 2015. MRI brain read as multiple small foci o f restricted diffusion in the subcortical and periventricular white matter, most compatible with isc hemic infarcts and ____ etiology. I spoke with the radiologist who deems that there are areas of a cute and subacute ischemic infarction. There is also chronic microvascular ischemic change in the d eep white matter, moderate central cerebral volume loss. DISCHARGE PLAN: Home. Follow up with primary in 1 week. Neurology referral if needed. Social ser vice if needed for a custodial considerations of placement. DIET: 1800 ADA. ACTIVITY: No driving. DURABLE MEDICAL EQUIPMENT: Has a walker. CODE STATUS: FULL. CONDITION: Stable. BARRIERS TO DISCHARGE: None. PENDING TESTS: A 2D echo, . FUNCTIONAL STATUS: The patient awake, alert, demented. I spoke with the daughter on admission regmercedez rding the care plan and options. ALLERGIES: NO KNOWN DRUG ALLERGIES. REASON FOR ADMISSION: Stroke. MEDICATIONS: STOPPED MEDICATIONS: 1. Spironolactone. 2. Omeprazole. CONTINUED MEDICATIONS: 1. Pepcid 20 daily. 2. Lasix 20 daily. 3. Calcium 1 tablet t.i.d. 4. Plavix 75 daily. 5. Restasis 1 drop both eyes q.12h. 6. Diclofenac 50 mg twice daily. 7. Colace 100 daily. 8. Neurontin 100 b.i.d. 9. Amaryl 4 mg twice daily. 10. ____ 2 mg b.i.d. 11. NovoLog 10 units with meals. 12. Lantus 61 units at bedtime. 13. Isosorbide dinitrate 30 mg daily. 14. Methimazole 5 mg daily. 15. Toprol-XL 50 mg daily. 16. Olopatadine 2.5 mL daily. 17. Ramipril 5 mg daily. 18. Crestor 20 mg daily. 19. Januvia 50/500 daily. 20. VESIcare 5 mg daily. 21. Kenalog 1 application daily. Dictated By: RAQUEL GRANDE/JEAN Conf#: [id number] DID#: [id number] CC: GINGER NAGEL MD;*End*
[2016-08-31] MEDS: DOCUSATE SODIUM 100 MG CAP PO SCH (22:12)
[2016-08-31] MEDS: ATORVASTATIN 80 MG TAB PO SCH (22:12)
[2016-09-01] VITALS (7 sets, daily range): BP systolic 128–152; BP diastolic 62–89; PULSE 90–95; RESP 18–20
[2016-09-01] MEDS: INSULIN ASPART [NOVOLOG] 3 ML PEN SC SCH ×4 (08:20→21:39)
[2016-09-01] MEDS: ASPIRIN (EC) 81 MG TAB PO SCH (09:46)
[2016-09-01] MEDS: CLOPIDOGREL 75 MG TAB PO SCH (09:46)
[2016-09-01] MEDS: ISOSORBIDE MONONITRATE(SR)30 MG TAB PO SCH (09:46)
[2016-09-01] MEDS: METHIMAZOLE 5 MG TAB PO SCH (09:46)
[2016-09-01] MEDS: METOPROLOL (XL) 50 MG TAB PO SCH (09:47)
[2016-09-01] MEDS: GABAPENTIN 100 MG CAP PO SCH ×2 (09:47→21:37)
[2016-09-01] MEDS: BENAZEPRIL 20 MG TAB PO SCH (09:47)
[2016-09-01] MEDS: FAMOTIDINE 20 MG TAB PO SCH (09:48)
[2016-09-01] MEDS: ENOXAPARIN 40 MG/0.4 ML SYG SC SCH (09:50)
[2016-09-01] MEDS: ACYCLOVIR 800 MG TAB PO SCH ×5 (09:54→21:00)
[2016-09-01] MEDS: SOLIFENACIN 5 MG TAB PO SCH (09:55)
[2016-09-01] MEDS: CYCLOSPORINE 0.05% OPH DROPERETTE BOTH EYES SCH ×2 (12:19→21:37)
[2016-09-01] MEDS: TRIAMCINOLONE ACET 0.5% 15 GM CR TOP SCH (12:20)
--- NOTE | 2016-09-01 13:02 | RADRPT ---
Echocardiogram Report Patient Name: ZULMA PEOPLES Gender: Female Date: 1940 Study Date: 01-Sep-2016 Cigarette Tester: Jasmin Dash [facility] Location: 5563 Ref. Physician: RAQUEL PROCTOR Quality: Technically Difficult Study Procedures: Transthoracic echocardiogram with complete 2D, M-Mode, and doppler examination. Indications: re stroke; possibly embolic. 2D/M Mode Doppler Measurement Value Normal Ranges Measurement Value Normal Ranges LVIDd 2D 4.4 3.5 - 5.6 cm AV Peak Irwin 1.0 m/sec LVIDs 2D 2.4 2.1 - 4.1 cm AV Peak PG 4.2 mmHg LVPWd 2D 1.1 0.6 - 1.1 cm LVOT Peak Irwin 0.8 m/sec IVSd 2D 1.1 0.6 - 1.1 cm LVOT Peak PG 2.8 mmHg AoR Diam 2D 2.9 2.0 - 3.7 cm MV E Peak Irwin 0.7 m/sec EDV 2D 85.4 cm3 MV A Peak Irwin 1.4 m/sec ESV 2D 14.5 cm3 MV E/A 0.5 LA Dimen 2D 3.6 2.3 - 4.0 cm MV Decel Time 147 msec MV Decel Gove 5 MV E/A 0.5 Findings Left Ventricle: Normal left ventricular systolic function. Normal left ventricular cavity size. Mild concentric left ventricular hypertrophy. Ejection fraction is visually estimated at 55 %. Tissue Doppler/Mitral Doppler indices are consistent with impaired relaxation (Stage I diastolic dysfunction). Right Ventricle: Normal right ventricular size. Normal right ventricular systolic function. Left Atrium: The left atrium is normal in size. Right Atrium: The right atrium is normal in size. Atrial Septum: Bubble study was performed and no evidence of intra atrial shunt. Mitral Valve: Mild mitral leaflet calcification. Mild mitral annular calcification. Mild mitral valve regurgitation. Aortic Valve: No significant aortic stenosis or insufficiency. Aortic cusps appear mildly calcified. Tricuspid Valve: Normal appearance of the tricuspid valve. Unable to obtain RVSP due to minimal presence of tricuspid regurgitation. Pulmonic Valve: Pulmonic valve not well visualized. Pericardium: Normal pericardium with no significant pericardial effusion. Aorta: Normal aortic root. IVC: Normal size and normal respiratory collapse consistent with normal right atrial pressure. Conclusions 1.Normal left ventricular systolic function. Normal left ventricular cavity size. Mild concentric left ventricular hypertrophy. Ejection fraction is visually estimated at 55 %. Tissue Doppler/Mitral Doppler indices are consistent with impaired relaxation (Stage I diastolic dysfunction). 2.Normal right ventricular size. Normal right ventricular systolic function. 3.The left atrium is normal in size. 4.The right atrium is normal in size. 5.Mild mitral valve regurgitation. 6.No significant valvular stenosis or regurgitation seen of remaining visualized valves. 7.Bubble study was performed and no evidence of intra atrial shunt. 8.Normal pericardium with no significant pericardial effusion. Electronically Signed By: Ross Rg 01-Sep-2016 13:01:41 -0700 Patient Name: ZULMA PEOPLES Study Date: 01-Sep-2016 [id number]
[2016-09-01] MEDS ORDERED: ASPI-664 PO (16:44)
--- NOTE | 2016-09-01 17:01 | DS ---
Date/Time of Note Date/Time of Note DATE: 09/01/16 TIME: 16:52 Discharge Summary Admission/Discharge Info Admit Date/Time Aug 29, 2016 at 12:42 Discharge Date/Time Final Diagnosis 1. TIA, on statin/plavix and aspirin 2. Shingles, on acyclovir 3. Hypertension. stable 4. Diabetes mellitus, follow up with PCP 5. Dementia, chronic, follow up with PCP 6. Old compression fracture of L1. 7. Chronic hyperthyroidism. on treatment 8. Degenerative joint disease. Patient Condition: Stable Hospital Course This is a 76-year-old female admitted with altered mental status, transient aphasia, slurred speech, and mechanical falls. She was seen in neurology in the emergency room. No need for TPA. CAT scan negative for bleed. She was evaluated in the hospital for another 48 hours. No further reoccurrence. Her speech actually returned in the ER. Patient has generalized weakness but nonfocal. 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 It was likely a TIA. The patient has already been optimized by beta bebo, NEGIN inhibitor, statin, and Plavix/aspirin. Patient will be discharged home with physical therapy. I talked to the daughter today to give updates of findings and plans. Home Meds Active Scripts Aspirin* (Aspirin* EC) 81 Mg Tablet., 81 MG PO DAILY for 30 Days Prov:YULISSA BURKETT MD 09/01/16 Acyclovir* (Acyclovir*) 800 Mg Tablet, 800 MG PO 5 TIMES DAILY for 14 Days, TAB Prov:RAQUEL PROCTOR MD 08/31/16 Reported Medications Olopatadine HCl (Pazeo) 2.5 Ml Drops, 2.5 ML BOTH EYES DAILY, BOTTLE 08/29/16 Cyclosporine (RESTASIS) 1 Each Droperette, 1 DROP BOTH EYES Q12, #1 BOX 08/29/16 Triamcinolone Acetonide* (Kenalog*) 0.5%-15GM Cr, 1 APPLIC TOP DAILY, #1 BOTTLE APPLY TO BACK 08/29/16 Solifenacin* (Vesicare*) 5 Mg Tablet, 5 MG PO DAILY, TAB 08/29/16 Gabapentin* (Gabapentin*) 100 Mg Capsule, 100 MG PO BID, #90 CAP 08/29/16 Sitagliptin Phos/Metformin HCl (Janumet 50-500 mg Tablet) 1 Each Tablet, 1 EACH PO DAILY, TAB 08/29/16 Furosemide* (Lasix*) 20 Mg Tablet, 20 MG PO DAILY, TAB 08/29/16 Rosuvastatin Calcium* (Crestor*) 20 Mg Tablet, 20 MG PO QHS, #30 TAB 08/29/16 Icosapent Ethyl (VASCEPA) 1 Gm Capsule, 2 GM PO BID, CAP 08/29/16 Diclofenac Sodium* (Diclofenac Sodium*) 50 Mg Tablet.dr, 50 MG PO BID, #60 TAB 08/29/16 Methimazole* (Methimazole*) 5 Mg Tablet, 5 MG PO DAILY, TAB 08/29/16 Insulin Aspart* (Novolog Insulin Pen*) 100 Unit/Ml Soln, 10 UNIT SC WITH MEALS, EA 08/29/16 Insulin Glargine* (Lantus*) 100 Unit/Ml Soln, 61 UNIT SC DAILY, #1 VIAL 08/29/16 Docusate Sodium* (Colace*) 100 Mg Capsule, 100 MG PO DAILY, #30 CAP 08/29/16 Isosorbide Dinitrate* (Isosorbide Dinitrate*) 30 Mg Tablet, 30 MG PO DAILY, TAB 07/24/14 Famotidine* (Famotidine*) 40 Mg Tablet, 40 MG PO DAILY, TAB 07/24/14 Ramipril (Ramipril) 5 Mg Capsule, 5 MG PO DAILY, CAP 07/24/14 Metoprolol Succinate* (Toprol XL*) 50 Mg Tab.er.24h, 50 MG PO DAILY, TAB 07/24/14 Glimepiride* (Glimepiride*) 4 Mg Tablet, 4 MG PO BID, TAB 07/24/14 Clopidogrel Bisulfate (Clopidogrel) 75 Mg Tablet, 75 MG PO DAILY, TAB 07/24/14 Calcium Carbonate ([id number]) 1 Tab Tablet, 1 TAB PO TID 07/24/14 Ergocalciferol* (Drisdol* (Vitamin D2)) 50,000 Unit Capsule, 74099 UNIT PO Q7D, CAP 07/24/14 Discontinued Reported Medications Hydralazine Hcl* (Hydralazine Hcl*) 50 Mg Tab, 50 MG PO TID Y for ELEVATED BLOOD PRESSURE, #90 TAB IF BLOOD PRESSURE IS GREATER THAN 150 08/29/16 Omeprazole* (Omeprazole*) 20 Mg Capsule.dr, 20 MG PO DAILY, #30 CAP 08/29/16 Spironolactone* (Aldactone*) 25 Mg Tablet, 25 MG PO DAILY, #30 TAB 08/29/16 Aspirin* (Aspirin* EC) 81 Mg Tablet.dr, 81 MG PO DAILY, TAB 07/24/14 Methimazole* (Methimazole*) 10 Mg Tablet, 20 MG PO QPM, TAB 07/24/14 Methimazole* (Methimazole*) 10 Mg Tablet, 15 MG PO QAM, TAB 07/24/14 Memantine* (Namenda*) 5 Mg Tablet, 5 MG PO BID, TAB 07/24/14 Insulin Regular, Human* (Novolin R*) 100 U/Ml Vial, 0 SC SLIDING SCALE AC, VIAL 07/24/14 Insulin Glargine* (Lantus*) 100 Unit/Ml Soln, 20 UNIT SC QPM, EA 07/24/14 Insulin Glargine* (Lantus*) 100 Unit/Ml Soln, 50 UNIT SC QAM, EA 07/24/14 Dexlansoprazole (Dexilant) 60 Mg Cap..mp, 60 MG PO DAILY, CAP 07/24/14 Canagliflozin (Invokana) 100 Mg Tablet, 100 MG PO DAILY, TAB 07/24/14 Donepezil* (Donepezil*) 5 Mg Tablet, 5 MG PO DAILY, TAB 07/24/14 Metformin* (Glucophage*) 500 Mg Tab, 500 MG PO BID, TAB 07/24/14 Simvastatin (Simvastatin) 40 Mg Tablet, 40 MG PO HS, TAB 07/24/14 Metoclopramide* (Reglan*) 5 Mg Tablet, 5 MG PO TID, TAB 07/24/14 Gemfibrozil* (Gemfibrozil*) 600 Mg Tablet, 600 MG PO BID, TAB 07/24/14 Acetaminophen* (Acetaminophen*) 325 Mg Tablet, 325 MG PO Q4H Y for PAIN AND OR ELEVATED TEMP, TAB 07/24/14 Docusate Sodium (Docusil) 100 Mg Capsule, 100 MG PO BID 07/24/14 Tolterodine Tartrate* (Tolterodine Tartrate* ER) 4 Mg Cap.er.24h, 4 MG PO DAILY , CAP 07/24/14 Diclofenac Sodium* (Voltaren* Gel) 1% -100 Gm Gel, 2 GM TOP QID, TUB 07/24/14 Discontinued Scripts Cephalexin* (Keflex*) 500 Mg Capsule, 500 MG PO BID for 5 Days, CAP Prov:VIDAL TEMPLETON 07/26/14 Follow-up Plan follow up with PCP in 1-2 weeks Home health for PT Pending Labs Laboratory Tests Test 08/31/16 17:24 08/31/16 22:11 09/01/16 08:01 09/01/16 12:25 Bedside Glucose 320mg/dL (70-220) 276mg/dL (70-220) 297mg/dL (70-220) 349mg/dL (70-220) YULISSA BURKETT MD Sep 01, 2016 17:01
[2016-09-01] MEDS: DOCUSATE SODIUM 100 MG CAP PO SCH (21:37)
[2016-09-01] MEDS: ATORVASTATIN 80 MG TAB PO SCH (21:37)
[2016-09-02 08:14] VITALS: BP_SYST 141; BP_SYST 167; BP_DIAS 77; BP_DIAS 79; RESP 18
[2016-09-02] MEDS: INSULIN ASPART [NOVOLOG] 3 ML PEN SC SCH ×6 (09:19→20:28)
[2016-09-02] MEDS: ISOSORBIDE MONONITRATE(SR)30 MG TAB PO SCH (09:26)
[2016-09-02] MEDS: METHIMAZOLE 5 MG TAB PO SCH (09:26)
[2016-09-02] MEDS: FAMOTIDINE 20 MG TAB PO SCH (09:26)
[2016-09-02] MEDS: CLOPIDOGREL 75 MG TAB PO SCH (09:26)
[2016-09-02] MEDS: CYCLOSPORINE 0.05% OPH DROPERETTE BOTH EYES SCH ×2 (09:26→22:11)
[2016-09-02] MEDS: GABAPENTIN 100 MG CAP PO SCH ×2 (09:26→20:24)
[2016-09-02] MEDS: BENAZEPRIL 20 MG TAB PO SCH (09:27)
[2016-09-02] MEDS: METOPROLOL (XL) 50 MG TAB PO SCH (09:28)
[2016-09-02] MEDS: TRIAMCINOLONE ACET 0.5% 15 GM CR TOP SCH (09:29)
[2016-09-02] MEDS: ENOXAPARIN 40 MG/0.4 ML SYG SC SCH (09:34)
[2016-09-02] MEDS: ASPIRIN (EC) 81 MG TAB PO SCH (09:37)
[2016-09-02] MEDS: SOLIFENACIN 5 MG TAB PO SCH (09:37)
[2016-09-02] MEDS: ACYCLOVIR 800 MG TAB PO SCH ×5 (09:37→20:24)
[2016-09-02 10:20] VITALS: PULSE 86
[2016-09-02 11:53] VITALS: BP 130/60; RESP 18
[2016-09-02 12:33] VITALS: PULSE 85
--- NOTE | 2016-09-02 13:27 | PN ---
Date/Time of Note Date/Time of Note DATE: 09/02/16 TIME: 13:23 Assessment/Plan VTE Prophylaxis VTE Prophylaxis Intervention: LMWH Lines/Catheters IV [facility]ter Type [facility]from [facility] Urinary Cath still in place: No Assessment/Plan Chief Complaint/Hosp Course This is a 76-year-old female admitted with altered mental status, transient aphasia, slurred speech, and mechanical falls. She was seen in neurology in the emergency room. No need for TPA. CAT scan negative for bleed. She was evaluated in the hospital for another 48 hours. No further reoccurrence. Her speech actually returned in the ER. Patient has generalized weakness but nonfocal. 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 It was likely a TIA. The patient has already been optimized by beta bebo, NEGIN inhibitor, statin, and Plavix/aspirin. Patient will be discharged home with physical therapy. I talked to the daughter today to give updates of findings and plans. Problems: Assessment/Plan 1. 4. Diabetes mellitus, with hyperglycemia, resume lantus/pre-meal insulin and metformin 2. TIA, on statin/plavix and aspirin 3. Shingles, on acyclovir 4. Hypertension. stable 5. Dementia, chronic, follow up with PCP 6. Old compression fracture of L1. 7. Chronic hyperthyroidism. on treatment 8. Degenerative joint disease. 9. DVT prophylaxis: lovenox Subjective 24 Hr Interval Summary Free Text/Dictation weak. alert. no distress Exam/Review of Systems Vital Signs Vitals Vital Signs Date Time Temp Pulse Resp B/P Pulse Ox O2 Delivery O2 Flow Rate FiO2 09/02/16 12:33 85 09/02/16 11:53 97.6 18 130/60 96 08/29/16 20:40 Room Air 08/29/16 13:08 2 Intake and Output 09/01/16 09/01/16 09/02/16 15:00 23:00 07:00 Intake Total 200 ml Balance 200 ml Exam Constitutional: alert, obese, oriented, well developed Psych: nl mood/affect, no complaints Head: atraumatic, normocephalic Eyes: EOMI, nl conjunctiva, nl lids ENMT: nl external ears & nose, nl lips & teeth, nl nasal mucosa & septum Neck: non-tender, supple Respiratory: clear to auscultation, normal air movement, No congested cough, No crackles/rales, No diminished breath sounds, No intercostal retraction, No labored breathing, No other, No respirations, No tactile fremitus, No wheezing Cardiovascular: nl pulses, regular rate and rhythm, No S3, No S4, No bruits, No diastolic murmur, No edema, No gallop, No irregular rhythm, No jugular venous distention (JVD), No murmurs/extra sounds, No other, No rub, No systolic murmur Gastrointestinal: nl liver, spleen, non-tender, soft, No ascites, No bowel sounds, No distended, No firm, No hepatomegaly, No mass , No other, No rebound or guarding, No splenomegaly, No surgical scars, No tender Musculoskeletal: nl extremities to inspection Extremities: normal pulses, No calf tenderness, No clubbing, No cyanosis, No edema, No other, No palpable cord, No pitting pedal edema, No tenderness 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: [employer]ICAL SERVICES DIRECT[employer] II-XII intact, nl mental status, nl speech, nl strength Skin: nl turgor Lymph: nl lymph nodes Results Result Diagram: 08/30/1671708/30/1618 Results 24 hrs Laboratory Tests Test 09/01/16 17:33 09/01/16 21:14 09/02/16 07:37 09/02/16 11:41 Bedside Glucose 432 *H 342 H 297 H 459 *H Test 09/02/16 12:22 Bedside Glucose 425 *H Medications Medications Current Medications Aspirin (Halfprin) 81 mg DAILY PO Last administered on 09/02/16 09:37; Admin Dose 81 MG; Start 08/30/16 at 09:00 Clopidogrel Bisulfate (plaVIX) 75 mg DAILY PO Last administered on 09/02/16 09 :26; Admin Dose 75 MG; Start 08/30/16 at 09:00 Cyclosporine (Restasis) 1 drop Q12 BOTH EYES Last administered on 09/02/16 09: 26; Admin Dose 1 DROP; Start 08/29/16 at 21:00 Gabapentin (Neurontin) 100 mg BID PO Last administered on 09/02/16 09:26; Admin Dose 100 MG; Start 08/29/16 at 21:00 Isosorbide Mononitrate (Imdur) 30 mg DAILY PO Last administered on 09/02/16 09 :26; Admin Dose 30 MG; Start 08/30/16 at 09:00 Solifenacin (Vesicare) 5 mg DAILY PO Last administered on 09/02/16 09:37; Admin Dose 5 MG; Start 08/30/16 at 09:00 Triamcinolone Acetonide (Kenalog 0.5% Cr) 1 applic DAILY TOP Last administered on 09/02/16 09:29; Admin Dose 1 APPLIC; Start 08/30/16 at 09:00 Miscellaneous Information 2 gm BID XX ; Start 08/29/16 at 21:00; Status UNV Miscellaneous Information 2.5 ml DAILY XX ; Start 08/30/16 at 09:00; Status UNV Atorvastatin Calcium (Lipitor) 80 mg DAILY@21 PO Last administered on 21:37; Admin Dose 80 MG; Start 08/29/16 at 21:00 Ondansetron HCl (Zofran Inj) 4 mg Q6H PRN IV NAUSEA AND/OR VOMITING Last administered on 08/30/16 19:37; Admin Dose 4 MG; Start 08/29/16 at 16:30 Acetaminophen (Tylenol Tab) 650 mg Q6H PRN PO PAIN LEVEL 1-3 OR FEVER; Start at 16:30 Acetaminophen/ Hydrocodone Bitart ([place] (5/325)) 1 tab Q6H PRN PO MODERATE PAIN LEVEL 4-6 Last administered on 08/30/16 15:50; Admin Dose 1 TAB; Start at 16:30 Morphine Sulfate (morphine) 2 mg Q4H PRN IV SEVERE PAIN LEVEL 7-10; Start 08/29 at 16:30 Docusate Sodium (Colace) 100 mg Q12H PRN PO CONSTIPATION; Start 08/29/16 at 16: 30 Bisacodyl (Dulcolax) 5 mg DAILY PRN PO CONSTIPATION; Start 08/29/16 at 16:30 Bisacodyl (Dulcolax Supp) 10 mg DAILY PRN MA CONSTIPATION; Start 08/29/16 at 16 :30 Enoxaparin Sodium (Lovenox) 40 mg DAILY SC Last administered on 09/02/16 09:34 ; Admin Dose 40 MG; Start 08/30/16 at 09:00 Miscellaneous Information 1 ea NOTE XX ; Start 08/29/16 at 18:00 Glucose (Glutose) 15 gm Q15M PRN PO DECREASED GLUCOSE; Start 08/29/16 at 18:00 Glucose (Glutose) 22.5 gm Q15M PRN PO DECREASED GLUCOSE; Start 08/29/16 at 18: 00 Dextrose (D50w Syringe) 25 ml Q15M PRN IV DECREASED GLUCOSE; Start 08/29/16 at 18:00 Dextrose (D50w Syringe) 50 ml Q15M PRN IV DECREASED GLUCOSE; Start 08/29/16 at 18:00 Glucagon (Glucagen) 1 mg Q15M PRN IM DECREASED GLUCOSE; Start 08/29/16 at 18:00 Glucose (Glutose) 15 gm Q15M PRN BUCCAL DECREASED GLUCOSE; Start 08/29/16 at 18 :00 Miscellaneous Information (*Order Clarification Bulletin) MEDICATION REQUIRES CLARIFICATION: Q8H XX ; Start 08/29/16 at 19:00 Miscellaneous Information (*Order Clarification Bulletin) MEDICATION REQUIRES CLARIFICATION: Q8H XX ; Start 08/29/16 at 19:00 Methimazole (Tapazole) 5 mg DAILY PO Last administered on 09/02/16 09:26; Admin Dose 5 MG; Start 08/30/16 at 10:30 Metoprolol Succinate (Toprol Xl) 50 mg DAILY PO Last administered on 09/02/16 09:28; Admin Dose 50 MG; Start 08/30/16 at 10:30 Docusate Sodium (Colace) 100 mg HS PO Last administered on 09/01/16 21:37; Admin Dose 100 MG; Start 08/30/16 at 21:00 Hydralazine HCl (Apresoline) 5 mg Q4H PRN IV ELEVATED SYSTOLIC BP; Start at 13:30 Benazepril HCl (Lotensin) 20 mg DAILY PO Last administered on 09/02/16 09:27; Admin Dose 20 MG; Start 08/30/16 at 20:00 Famotidine (Pepcid) 20 mg DAILY PO Last administered on 09/02/16 09:26; Admin Dose 20 MG; Start 09/01/16 at 09:00 YULISSA BURKETT MD Sep 02, 2016 13:27
[2016-09-02 16:41] VITALS: BP 125/69; RESP 18
[2016-09-02] MEDS: metFORMIN 500 MG TAB PO SCH (18:34)
[2016-09-02] MEDS: [UNRECOGNIZED DRUG - REMARK] XX SCH ×6 (19:00→21:34)
[2016-09-02 20:00] VITALS: BP 134/72; RESP 20
[2016-09-02] MEDS: [UNRECOGNIZED DRUG - REMARK] XX SCH ×6 (20:14→22:05)
[2016-09-02] MEDS: DOCUSATE SODIUM 100 MG CAP PO SCH (20:24)
[2016-09-02] MEDS: ATORVASTATIN 80 MG TAB PO SCH (20:24)
[2016-09-03] MEDS: [UNRECOGNIZED DRUG - REMARK] XX SCH ×3 (03:00→19:00)
[2016-09-03] MEDS: [UNRECOGNIZED DRUG - REMARK] XX SCH ×3 (03:00→19:00)
[2016-09-03] MEDS ORDERED: INSULIN GLARGINE [LANtus] 3 ML PEN SC SCH (08:00)
[2016-09-03 08:51] VITALS: BP 162/70; RESP 20
[2016-09-03] MEDS: CLOPIDOGREL 75 MG TAB PO SCH (09:17)
[2016-09-03] MEDS: GABAPENTIN 100 MG CAP PO SCH ×2 (09:17→20:01)
[2016-09-03] MEDS: metFORMIN 500 MG TAB PO SCH ×2 (09:18→17:58)
[2016-09-03] MEDS: BENAZEPRIL 20 MG TAB PO SCH (09:18)
[2016-09-03] MEDS: FAMOTIDINE 20 MG TAB PO SCH (09:18)
[2016-09-03] MEDS: ASPIRIN (EC) 81 MG TAB PO SCH (09:18)
[2016-09-03] MEDS: METOPROLOL (XL) 50 MG TAB PO SCH (09:19)
[2016-09-03] MEDS: ISOSORBIDE MONONITRATE(SR)30 MG TAB PO SCH (09:19)
[2016-09-03] MEDS: ENOXAPARIN 40 MG/0.4 ML SYG SC SCH (09:20)
[2016-09-03] MEDS: CYCLOSPORINE 0.05% OPH DROPERETTE BOTH EYES SCH (09:29)
[2016-09-03] MEDS: SOLIFENACIN 5 MG TAB PO SCH (09:29)
[2016-09-03] MEDS: TRIAMCINOLONE ACET 0.5% 15 GM CR TOP SCH (09:30)
[2016-09-03] MEDS: METHIMAZOLE 5 MG TAB PO SCH (09:30)
[2016-09-03] MEDS: INSULIN ASPART [NOVOLOG] 3 ML PEN SC SCH ×7 (09:33→20:08)
[2016-09-03] MEDS: ACYCLOVIR 800 MG TAB PO SCH ×5 (12:22→20:00)
--- NOTE | 2016-09-03 15:44 | DS ---
Date/Time of Note Date/Time of Note DATE: 09/03/16 TIME: 15:40 Discharge Summary Admission/Discharge Info Admit Date/Time Sep 03, 2016 at 09:50 Discharge Date/Time Final Diagnosis 1. TIA, on statin/plavix and aspirin 2. Shingles, on acyclovir 3. Hypertension. stable 4. Diabetes mellitus, resume home medications, follow up with PCP 5. Dementia, chronic, follow up with PCP 6. Old compression fracture of L1. 7. Chronic hyperthyroidism. on treatment 8. Degenerative joint disease. Patient Condition: Stable Hospital Course This is a 76-year-old female admitted with altered mental status, transient aphasia, slurred speech, and mechanical falls. She was seen in neurology in the emergency room. No need for TPA. CAT scan negative for bleed. She was evaluated in the hospital for another 48 hours. No further reoccurrence. Her speech actually returned in the ER. Patient has generalized weakness but nonfocal. 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 It was likely a TIA. The patient has already been optimized by beta bebo, NEGIN inhibitor, statin, and Plavix/aspirin. INsulins and oral hypoglycemic agents was held. Patient developed hyperglycemia , DM medication are resumed. Patient will be discharged home with physical therapy. Home Meds Active Scripts Aspirin* (Aspirin* EC) 81 Mg Tablet.dr, 81 MG PO DAILY for 30 Days Prov:YULISSA BURKETT MD 09/01/16 Acyclovir* (Acyclovir*) 800 Mg Tablet, 800 MG PO 5 TIMES DAILY for 14 Days, TAB Prov:RAQUEL PROCTOR MD 08/31/16 Reported Medications Olopatadine HCl (Pazeo) 2.5 Ml Drops, 2.5 ML BOTH EYES DAILY, BOTTLE 08/29/16 Cyclosporine (RESTASIS) 1 Each Droperette, 1 DROP BOTH EYES Q12, #1 BOX 08/29/16 Triamcinolone Acetonide* (Kenalog*) 0.5%-15GM Cr, 1 APPLIC TOP DAILY, #1 BOTTLE APPLY TO BACK 08/29/16 Solifenacin* (Vesicare*) 5 Mg Tablet, 5 MG PO DAILY, TAB 08/29/16 Gabapentin* (Gabapentin*) 100 Mg Capsule, 100 MG PO BID, #90 CAP 08/29/16 Sitagliptin Phos/Metformin HCl (Janumet 50-500 mg Tablet) 1 Each Tablet, 1 EACH PO DAILY, TAB 08/29/16 Furosemide* (Lasix*) 20 Mg Tablet, 20 MG PO DAILY, TAB 08/29/16 Rosuvastatin Calcium* (Crestor*) 20 Mg Tablet, 20 MG PO QHS, #30 TAB 08/29/16 Icosapent Ethyl (VASCEPA) 1 Gm Capsule, 2 GM PO BID, CAP 08/29/16 Diclofenac Sodium* (Diclofenac Sodium*) 50 Mg Tablet.dr, 50 MG PO BID, #60 TAB 08/29/16 Methimazole* (Methimazole*) 5 Mg Tablet, 5 MG PO DAILY, TAB 08/29/16 Insulin Aspart* (Novolog Insulin Pen*) 100 Unit/Ml Soln, 10 UNIT SC WITH MEALS, EA 08/29/16 Insulin Glargine* (Lantus*) 100 Unit/Ml Soln, 61 UNIT SC DAILY, #1 VIAL 08/29/16 Docusate Sodium* (Colace*) 100 Mg Capsule, 100 MG PO DAILY, #30 CAP 08/29/16 Isosorbide Dinitrate* (Isosorbide Dinitrate*) 30 Mg Tablet, 30 MG PO DAILY, TAB 07/24/14 Famotidine* (Famotidine*) 40 Mg Tablet, 40 MG PO DAILY, TAB 07/24/14 Ramipril (Ramipril) 5 Mg Capsule, 5 MG PO DAILY, CAP 07/24/14 Metoprolol Succinate* (Toprol XL*) 50 Mg Tab.er.24h, 50 MG PO DAILY, TAB 07/24/14 Glimepiride* (Glimepiride*) 4 Mg Tablet, 4 MG PO BID, TAB 07/24/14 Clopidogrel Bisulfate (Clopidogrel) 75 Mg Tablet, 75 MG PO DAILY, TAB 07/24/14 Calcium Carbonate ([id number]) 1 Tab Tablet, 1 TAB PO TID 07/24/14 Ergocalciferol* (Drisdol* (Vitamin D2)) 50,000 Unit Capsule, 71652 UNIT PO Q7D, CAP 07/24/14 Discontinued Reported Medications Hydralazine Hcl* (Hydralazine Hcl*) 50 Mg Tab, 50 MG PO TID Y for ELEVATED BLOOD PRESSURE, #90 TAB IF BLOOD PRESSURE IS GREATER THAN 150 08/29/16 Omeprazole* (Omeprazole*) 20 Mg Capsule.dr, 20 MG PO DAILY, #30 CAP 08/29/16 Spironolactone* (Aldactone*) 25 Mg Tablet, 25 MG PO DAILY, #30 TAB 08/29/16 Aspirin* (Aspirin* EC) 81 Mg Tablet.dr, 81 MG PO DAILY, TAB 07/24/14 Methimazole* (Methimazole*) 10 Mg Tablet, 20 MG PO QPM, TAB 07/24/14 Methimazole* (Methimazole*) 10 Mg Tablet, 15 MG PO QAM, TAB 07/24/14 Memantine* (Namenda*) 5 Mg Tablet, 5 MG PO BID, TAB 07/24/14 Insulin Regular, Human* (Novolin R*) 100 U/Ml Vial, 0 SC SLIDING SCALE AC, VIAL 07/24/14 Insulin Glargine* (Lantus*) 100 Unit/Ml Soln, 20 UNIT SC QPM, EA 07/24/14 Insulin Glargine* (Lantus*) 100 Unit/Ml Soln, 50 UNIT SC QAM, EA 07/24/14 Dexlansoprazole (Dexilant) 60 Mg Cap..mp, 60 MG PO DAILY, CAP 07/24/14 Canagliflozin (Invokana) 100 Mg Tablet, 100 MG PO DAILY, TAB 07/24/14 Donepezil* (Donepezil*) 5 Mg Tablet, 5 MG PO DAILY, TAB 07/24/14 Metformin* (Glucophage*) 500 Mg Tab, 500 MG PO BID, TAB 07/24/14 Simvastatin (Simvastatin) 40 Mg Tablet, 40 MG PO HS, TAB 07/24/14 Metoclopramide* (Reglan*) 5 Mg Tablet, 5 MG PO TID, TAB 07/24/14 Gemfibrozil* (Gemfibrozil*) 600 Mg Tablet, 600 MG PO BID, TAB 07/24/14 Acetaminophen* (Acetaminophen*) 325 Mg Tablet, 325 MG PO Q4H Y for PAIN AND OR ELEVATED TEMP, TAB 07/24/14 Docusate Sodium (Docusil) 100 Mg Capsule, 100 MG PO BID 07/24/14 Tolterodine Tartrate* (Tolterodine Tartrate* ER) 4 Mg Cap.er.24h, 4 MG PO DAILY , CAP 07/24/14 Diclofenac Sodium* (Voltaren* Gel) 1% -100 Gm Gel, 2 GM TOP QID, TUB 07/24/14 Discontinued Scripts Cephalexin* (Keflex*) 500 Mg Capsule, 500 MG PO BID for 5 Days, CAP Prov:VIDAL TEMPLETON 07/26/14 Follow-up Plan follow up with PCP in 1-2 weeks Home health for PT Pending Labs Laboratory Tests Test 09/02/16 20:23 09/03/16 07:54 09/03/16 11:34 Bedside Glucose 220mg/dL (70-220) 288mg/dL (70-220) 322mg/dL (70-220) YULISSA BURKETT MD Sep 03, 2016 15:44
[2016-09-03] MEDS ORDERED: GLIMEPIRIDE 4 MG TAB PO SCH (18:05)
[2016-09-03 19:52] VITALS: BP 147/67; RESP 18
[2016-09-03] MEDS: ATORVASTATIN 80 MG TAB PO SCH (20:00)
[2016-09-03] MEDS: DOCUSATE SODIUM 100 MG CAP PO SCH (20:01)
== END 2016-09-03 21:55 | disposition home or self-care (01) ==
LOC: E/R 09:30 → MS4 12:42 → INTOOBSV 12:42 → PP2 09-02 23:27 → OBSVTOIN 09-03 09:50 → INTOOBSV 09-03 09:50
PROVIDERS: ADMIT Family Medicine; ATTEND Family Medicine
DX: G45.9 Transient cerebral ischemic attack, unspecified (principal); B02.9 Zoster without complications; F03.90 Unspecified dementia, unspecified severity, without behavioral disturbance, psychotic disturbance, mood disturbance, and anxiety; E11.9 Type 2 diabetes mellitus without complications; E05.90 Thyrotoxicosis, unspecified without thyrotoxic crisis or storm; E11.65 Type 2 diabetes mellitus with hyperglycemia; E88.81 Metabolic syndrome and other insulin resistance; E78.5 Hyperlipidemia, unspecified; M48.56XD Collapsed vertebra, not elsewhere classified, lumbar region, subsequent encounter for fracture with routine healing; I10 Essential (primary) hypertension; I25.2 Old myocardial infarction; M19.91 Primary osteoarthritis, unspecified site; Z79.84 Long term (current) use of oral hypoglycemic drugs
CPT/HCPCS: 36415; 70450; 70551; 71010; 72100; 80053; 80306; 80307; 81001; 82306; 82962; 83036; 83735; 84100; 84436; 84443; 84479; 84484; 85025; 85610; 85730; 92610; 93005; 93306; 93880; 97162; 99285; G0378; G8996; G8997; G8998; J0133; J1650; J1815; J2405; J7030; 81003; 99217

== ENCOUNTER 2016-09-05 13:02 | Inpatient (IN) | payer MEDICARE, OTHER ==
[~2016-09-05] VITALS: Ht 157.5 cm; Wt 85.8 kg
[~2016-09-05 13:02] MED LIST changes: -ACET325T45 PO; +ACYC800T PO; -CANA100T PO; -CEPH-443 PO; +CYCL1DRO BOTH EYES; -DEXL60CA2 PO; -DICL100G37 TOP; +DICL50TA11 PO; -DOCU-103 PO; +DOCU-144 PO; -DONE5TAB7 PO; +FURO-110 PO; +GABA100C14 PO; -GEMF600T60 PO; +ICOS1CAP PO; -INSU100V23 SC; -MEMA5TAB PO; -METF500T4 PO; +METH-493 PO; -METH10TA5 PO; -METO5TAB58 PO; +NOVO3I SC; +OLOP2.5D5 BOTH EYES; +ROSU20TA PO; +SITA1TAB PO; -SMV40T PO; +SOLI5TAB5 PO; -TOLT4CAP13 PO; +TRIA15CR52 TOP
[2016-09-05] MEDS ORDERED: SOD CHLORIDE 0.9% 1,000 ML IV STA (13:18)
[2016-09-05] MEDS ORDERED: KETOROLAC 15 MG INJ IV STA (13:18)
[2016-09-05] MEDS ORDERED: ONDANSETRON 4 MG INJ IV STA (13:18)
--- NOTE | 2016-09-05 13:41 | RADRPT ---
PROCEDURE: XR Chest. CLINICAL INDICATION: Abdominal pain TECHNIQUE: Chest AP portable COMPARISON: 08/29/2016 FINDINGS: The mediastinal structures are unremarkable. There is calcification of the thoracic aorta (consiste nt with atherosclerosis). The heart is normal in size and configuration. The pulmonary vascularity is normal. The lung vargas are unremarkable. No consolidation is identified. The pleural spaces are unremarkable. There are senescent changes of the axial skeleton. IMPRESSION: Calcification of the thoracic aorta (consistent with atherosclerosis). No evidence for active cardiopulmonary disease. RPTAT: [id number] .Gildardo Bland MD, MD Date Time Electronically viewed and signed by .Gildardo Bland MD, on 09/05/2016 13:41 .B/
[2016-09-05 13:43] LABS: ADD SCAN DIFF NO; BASOPHILS % 0.1 % (0.0-2.0); EOSINOPHILS % 0.6 % (0.0-7.0); HEMATOCRIT 37.7 % (37.0-47.0); HEMOGLOBIN 12.2 g/dl (12.0-16.0); MEAN CORPUSCULAR HEMOGLOBIN 28.6 pg (29.0-33.0); MEAN CORPUSCULAR HGB CONC 32.4 g/dl (32.0-37.0); MEAN CORPUSCULAR VOLUME 88.3 fl (82.0-101.0); MEAN PLATELET VOLUME 10.9 fl (7.4-10.4); MONOCYTE # 0.6 10^3/ul (0.3-0.9); MONOCYTES % 8.2 % (0.0-11.0); NEUTROPHIL # 4.5 10^3/ul (1.6-7.5); NEUTROPHILS % 62.7 % (39.0-77.0); PLATELET COUNT 271 10^3/UL (140-415); RED BLOOD COUNT 4.27 10^6/ul (4.20-5.40); RED CELL DISTRIBUTION WIDTH 14.9 % (11.5-14.5); WHITE BLOOD COUNT 7.2 10^3/ul (4.8-10.8)
[2016-09-05 13:52] LABS: ADD UMIC YES; URINE BILIRUBIN (Dip) NEGATIVE (NEGATIVE); URINE BLOOD (Dip) TRACE (NEGATIVE); URINE COLOR LT. YELLOW (YELLOW); URINE GLUCOSE (Dip) NEGATIVE (NEGATIVE); URINE KETONES (Dip) NEGATIVE (NEGATIVE); URINE LEUKOCYTE ESTERASE (Dip) NEGATIVE (NEGATIVE); URINE NITRITE (Dip) NEGATIVE (NEGATIVE); URINE TOTAL PROTEIN (Dip) NEGATIVE (NEGATIVE); URINE UROBILINOGEN (Dip) 0.2 E.U./dL (0.1-1.0)
[2016-09-05 14:00] LABS: BACTERIA,URINE MODERATE; SQUAMOUS EPITHELIAL CELL,UR FEW; URINE RBCS 0-2 /HPF (0)
[2016-09-05] MEDS ORDERED: ACET-2047 PO (14:02)
[2016-09-05] MEDS ORDERED: LORA0.5T PO (14:03)
[2016-09-05 14:34] LABS: ALBUMIN 3.8 g/dl (3.3-4.9); CHLORIDE 103 mmol/L (97-110)
[2016-09-05 14:35] LABS: POTASSIUM 4.6 mmol/L (3.5-5.1); SODIUM 137 mmol/L (135-144)
[2016-09-05 14:37] LABS: ALANINE AMINOTRANSFERASE 27 IU/L (13-69); ALBUMIN/GLOBULIN RATIO 0.97; ALKALINE PHOSPHATASE 95 IU/L (42-121); ANION GAP 15 (8-16); ASPARTATE AMINO TRANSFERASE 26 IU/L (15-46); BILIRUBIN,INDIRECT 0.2 mg/dl (0-1.1); BILIRUBIN,TOTAL 0.2 mg/dl (0.2-1.3); BLOOD UREA NITROGEN 32 mg/dl (7-20); CARBON DIOXIDE 24 mmol/L (21-31); CREATININE 1.13 mg/dl (0.44-1.00); GLUCOSE 243 mg/dl (70-220); TOTAL PROTEIN 7.7 g/dl (6.1-8.1)
[2016-09-05 14:38] LABS: CALCIUM 8.9 mg/dl (8.4-10.2)
[2016-09-05 14:51] LABS: TROPONIN-I < 0.012 ng/ml (0.00-0.12)
--- NOTE | 2016-09-05 15:36 | ERA ---
ER Documentation Chief Complaint Date/Time DATE: 09/05/16 TIME: 15:30 Chief Complaint NAUSEA/VOMITING/MALAISE SINCE DISCHARGED X2DAYS HPI 76-year-old woman brought in by EMS from home for recent weakness and difficulty ambulating, daughter was later at the bedside and states she has had difficulty moving her to the bathroom and patient has difficulty ambulating in general. Her symptoms have been getting worse and her daughter is having difficulty helping her with activities of daily living. Patient has had no vomiting or diarrhea since discharge, no fevers or chills, no complaints of chest pain or shortness of breath. ROS All systems reviewed and are negative except as per history of present illness. Medications Home Meds Active Scripts Aspirin* (Aspirin* EC) 81 Mg Tablet., 81 MG PO DAILY for 30 Days Prov:YULISSA BURKETT MD 09/01/16 Acyclovir* (Acyclovir*) 800 Mg Tablet, 800 MG PO 5 TIMES DAILY for 14 Days, TAB Prov:RAQUEL PROCTOR MD 08/31/16 Reported Medications Olopatadine HCl (Pazeo) 2.5 Ml Drops, 2.5 ML BOTH EYES DAILY, BOTTLE 08/29/16 Cyclosporine (RESTASIS) 1 Each Droperette, 1 DROP BOTH EYES Q12, #1 BOX 08/29/16 Triamcinolone Acetonide* (Kenalog*) 0.5%-15GM Cr, 1 APPLIC TOP DAILY, #1 BOTTLE APPLY TO BACK 08/29/16 Solifenacin* (Vesicare*) 5 Mg Tablet, 5 MG PO DAILY, TAB 08/29/16 Gabapentin* (Gabapentin*) 100 Mg Capsule, 100 MG PO BID, #90 CAP 08/29/16 Sitagliptin Phos/Metformin HCl (Janumet 50-500 mg Tablet) 1 Each Tablet, 1 EACH PO DAILY, TAB 08/29/16 Furosemide* (Lasix*) 20 Mg Tablet, 20 MG PO DAILY, TAB 08/29/16 Rosuvastatin Calcium* (Crestor*) 20 Mg Tablet, 20 MG PO QHS, #30 TAB 08/29/16 Icosapent Ethyl (VASCEPA) 1 Gm Capsule, 2 GM PO BID, CAP 08/29/16 Diclofenac Sodium* (Diclofenac Sodium*) 50 Mg Tablet., 50 MG PO BID, #60 TAB 08/29/16 Methimazole* (Methimazole*) 5 Mg Tablet, 5 MG PO DAILY, TAB 08/29/16 Insulin Aspart* (Novolog Insulin Pen*) 100 Unit/Ml Soln, 10 UNIT SC WITH MEALS, EA 08/29/16 Insulin Glargine* (Lantus*) 100 Unit/Ml Soln, 61 UNIT SC DAILY, #1 VIAL 08/29/16 Docusate Sodium* (Colace*) 100 Mg Capsule, 100 MG PO DAILY, #30 CAP 08/29/16 Isosorbide Dinitrate* (Isosorbide Dinitrate*) 30 Mg Tablet, 30 MG PO DAILY, TAB 07/24/14 Famotidine* (Famotidine*) 40 Mg Tablet, 40 MG PO DAILY, TAB 07/24/14 Ramipril (Ramipril) 5 Mg Capsule, 5 MG PO DAILY, CAP 07/24/14 Metoprolol Succinate* (Toprol XL*) 50 Mg Tab.er.24h, 50 MG PO DAILY, TAB 07/24/14 Glimepiride* (Glimepiride*) 4 Mg Tablet, 4 MG PO BID, TAB 07/24/14 Clopidogrel Bisulfate (Clopidogrel) 75 Mg Tablet, 75 MG PO DAILY, TAB 07/24/14 Calcium Carbonate ([id number]) 1 Tab Tablet, 1 TAB PO TID 07/24/14 Ergocalciferol* (Drisdol* (Vitamin D2)) 50,000 Unit Capsule, 52603 UNIT PO Q7D, CAP 07/24/14 Discontinued Reported Medications Lorazepam* (Lorazepam*) 0.5 Mg Tablet, 0.5 MG PO Q6 Y for ANXIETY, TAB 09/05/16 Acetaminophen* (Acetaminophen*) 650 Mg Tablet, 650 MG PO Q4 Y for PAIN AND OR ELEVATED TEMP, #30 TAB 09/05/16 Hydralazine Hcl* (Hydralazine Hcl*) 50 Mg Tab, 50 MG PO TID Y for ELEVATED BLOOD PRESSURE, #90 TAB IF BLOOD PRESSURE IS GREATER THAN 150 08/29/16 Omeprazole* (Omeprazole*) 20 Mg Capsule.dr, 20 MG PO DAILY, #30 CAP 08/29/16 Spironolactone* (Aldactone*) 25 Mg Tablet, 25 MG PO DAILY, #30 TAB 08/29/16 Aspirin* (Aspirin* EC) 81 Mg Tablet.dr, 81 MG PO DAILY, TAB 07/24/14 Methimazole* (Methimazole*) 10 Mg Tablet, 20 MG PO QPM, TAB 07/24/14 Methimazole* (Methimazole*) 10 Mg Tablet, 15 MG PO QAM, TAB 07/24/14 Memantine* (Namenda*) 5 Mg Tablet, 5 MG PO BID, TAB 07/24/14 Insulin Regular, Human* (Novolin R*) 100 U/Ml Vial, 0 SC SLIDING SCALE AC, VIAL 07/24/14 Insulin Glargine* (Lantus*) 100 Unit/Ml Soln, 20 UNIT SC QPM, EA 07/24/14 Insulin Glargine* (Lantus*) 100 Unit/Ml Soln, 50 UNIT SC QAM, EA 07/24/14 Dexlansoprazole (Dexilant) 60 Mg Cap..mp, 60 MG PO DAILY, CAP 07/24/14 Canagliflozin (Invokana) 100 Mg Tablet, 100 MG PO DAILY, TAB 07/24/14 Donepezil* (Donepezil*) 5 Mg Tablet, 5 MG PO DAILY, TAB 07/24/14 Metformin* (Glucophage*) 500 Mg Tab, 500 MG PO BID, TAB 07/24/14 Simvastatin (Simvastatin) 40 Mg Tablet, 40 MG PO HS, TAB 07/24/14 Metoclopramide* (Reglan*) 5 Mg Tablet, 5 MG PO TID, TAB 07/24/14 Gemfibrozil* (Gemfibrozil*) 600 Mg Tablet, 600 MG PO BID, TAB 07/24/14 Acetaminophen* (Acetaminophen*) 325 Mg Tablet, 325 MG PO Q4H Y for PAIN AND OR ELEVATED TEMP, TAB 07/24/14 Docusate Sodium (Docusil) 100 Mg Capsule, 100 MG PO BID 07/24/14 Tolterodine Tartrate* (Tolterodine Tartrate* ER) 4 Mg Cap.er.24h, 4 MG PO DAILY , CAP 07/24/14 Diclofenac Sodium* (Voltaren* Gel) 1% -100 Gm Gel, 2 GM TOP QID, TUB 07/24/14 Discontinued Scripts Cephalexin* (Keflex*) 500 Mg Capsule, 500 MG PO BID for 5 Days, CAP Prov:VIDAL TEMPLETON 07/26/14 Allergies Allergies: Coded Allergies: No Known Allergy (Unverified , 08/31/16) PMhx/Soc Hypertension, diabetes, recent TIA with recent unremarkable brain MRI, hyperthyroidism, degenerative joint disease, dementia, recent shingles over the anterior upper right chest, chronic gait ataxia History of Surgery: Yes (hysterectomy; appendectomy; cholecystectomy) Anesthesia Reaction: No Hx 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 Disorder: Yes (CVA) Hx Respiratory Disorders: No Hx Cardiac Disorders: Yes (HTN, HDL) Hx Psychiatric Problems: No Hx Miscellaneous Medical Probl: Yes (SHINGLES) Hx Alcohol Use: No Hx Substance Use: No Hx Tobacco Use: No Smoking Status: Never smoker FmHx Family History: No diabetes Physical Exam Vitals Vital Signs Date Time Temp Pulse Resp B/P Pulse Ox O2 Delivery O2 Flow Rate FiO2 09/05/16 13:10 99.0 99 12 136/77 95 Physical Exam GENERAL: Well-developed, well-nourished, dry mucous membranes, appears dehydrated, afebrile HEENT: Dry mucous membranes, pink conjunctiva, no cervical spine tenderness or step-off deformities, no goiter, no jaundice or icterus, extraocular movements intact without pain. No submandibular induration, and no pharyngeal erythema NEURO: Alert and oriented 1, cranial nerves II through XII intact bilaterally, pupils equal round reactive to light, no focal deficits or facial asymmetry, sensation intact distally Strength 3/3 in the lower extremities bilaterally, upper extremity strength is normal. CARDIAC: Regular rate and rhythm, no murmurs rubs or gallops LUNGS: Clear bilaterally no wheezing crackles or stridor ABDOMEN: Soft nontender, no guarding, no rigidity, no rebound, no psoas sign no obturator sign. Normoactive bowel sounds SKIN: Warm and dry to touch, no abrasions, contusions, or hematomas, no lacerations, no ecchymosis, no target lesions, and without ulcers EXTREMITIES: No clubbing cyanosis or edema, calves are bilaterally symmetrical, no Homans sign, no popliteal cord sign. Distal pulses equal and bilateral PSYCH: Normal affect without agitation or irritability Result Diagram: 09/05/16 1335 09/05/16 1415 Results 24 hrs Laboratory Tests Test 09/05/16 13:19 09/05/16 13:25 09/05/16 13:35 09/05/16 14:15 Bedside Glucose 236mg/dL Urine Color LT. YELLOW Urine Clarity CLEAR Urine pH 5.5 Urine Specific [place] 1.025 Urine Ketones NEGATIVE Urine Nitrite NEGATIVE Urine Bilirubin NEGATIVE Urine Urobilinogen 0.2 E.U./dL Urine Leukocyte Esterase NEGATIVE Urine Microscopic RBC 0-2/HPF Urine Microscopic WBC NONE SEEN/HPF Urine Squamous Epithelial Cells FEW Urine Bacteria MODERATE Urine Hemoglobin TRACE Urine Glucose NEGATIVE% Urine Total Protein NEGATIVE White Blood Count 7.210^3/ul Red Blood Count 4.2710^6/ul Hemoglobin 12.2g/dl Hematocrit 37.7% Mean Corpuscular Volume 88.3fl Mean Corpuscular Hemoglobin 28.6pg Mean Corpuscular Hemoglobin Concent 32.4g/dl Red Cell Distribution Width 14.9% Platelet Count 53708^3/UL Mean Platelet Volume 10.9fl Neutrophils % 62.7% Lymphocytes % 28.0% Monocytes % 8.2% Eosinophils % 0.6% Basophils % 0.1% Nucleated Red Blood Cells % 0.0/100WBC Neutrophils # 4.510^3/ul Lymphocytes # 2.010^3/ul Monocytes # 0.610^3/ul Eosinophils # 0.010^3/ul Basophils # 0.010^3/ul Nucleated Red Blood Cells # 0.010^3/ul Sodium Level 137mmol/L Potassium Level 4.6mmol/L Chloride Level 103mmol/L Carbon Dioxide Level 24mmol/L Anion Gap 15 Blood Urea Nitrogen 32mg/dl Creatinine 1.13mg/dl Glucose Level 243mg/dl Calcium Level 8.9mg/dl Total Bilirubin 0.2mg/dl Direct Bilirubin 0.00mg/dl Indirect Bilirubin 0.2mg/dl Aspartate Amino Transf (AST/SGOT) 26IU/L Alanine Aminotransferase (ALT/SGPT) 27IU/L Alkaline Phosphatase 95IU/L Troponin I < 0.012ng/ml Total Protein 7.7g/dl Albumin 3.8g/dl Globulin 3.90g/dl Albumin/Globulin Ratio 0.97 Lipase 40U/L Current Medications Medications (Trade) Dose Ordered Sig/Elizabeth Route PRN Reason Start Time Stop Time Status Last Admin Dose Admin Sodium Chloride (NS) 1,000 ml @ 1,000 mls/hr Q1H STAT IV 09/05/16 13:18 09/05/16 14:17 DC 09/05/16 13:54 Ondansetron HCl (Zofran Inj) 4 mg ONCE STAT IV 09/05/16 13:18 09/05/16 13:21 DC 09/05/16 13:51 Ketorolac Tromethamine (Toradol) 15 mg ONCE STAT IV 09/05/16 13:18 09/05/16 13:21 DC 09/05/16 13:51 Procedures/MDM IV line was established patient was placed on diagnostic cardiac sonographer rhythm strip revealed a sinus rhythm at about 90 bpm with upright P and T waves. Patient was afebrile. EKG performed, read by me: 94 bpm, normal sinus rhythm, left axis deviation, no acute ST segment changes, narrow QRS complex, with good R-wave progression in precordial leads. I administered 1 L normal saline intravenously for dehydration, Toradol 15 mg IV for complaints of pain and Zofran 4 mg IV for dizziness. Chest X-ray 1V Interpreted by me: Soft Tissue: No acute abnormalities Bones: No acute abnormalities Mediastinum/Cardiac Silhouette/Lungs: No acute abnormalities CBC was unremarkable, electrolytes revealed dehydration with an increased BUN/ creatinine at 32/1.1, liver function tests normal, troponin negative. Urinalysis is negative for infection. Patient will be admitted to [facility] for continued IV hydration, patient may require boarding care or nursing facility services after discharge. Departure Diagnosis: Primary Impression: Unable to ambulate Additional Impression: Dehydration Condition: KEYA Tripp MD Sep 05, 2016 15:36
[2016-09-05] MEDS ORDERED: DOCUSATE SODIUM 100 MG CAP PO PRN (17:00)
[2016-09-05] MEDS ORDERED: HYDROCODONE/APAP (5/325) TAB PO PRN (17:00)
[2016-09-05] MEDS ORDERED: ALBUTEROL/IPRATROPIUM (NEB) 3 ML AMP HHN PRN (17:00)
[2016-09-05] MEDS ORDERED: NA PHOSPHATE/BIPHOS 133 ML ENEMA PR PRN (17:00)
[2016-09-05] MEDS ORDERED: NITROGLYCERIN (SL) 0.4 MG TAB SL PRN (17:00)
[2016-09-05] MEDS ORDERED: ONDANSETRON 4 MG INJ IV PRN (17:00)
[2016-09-05] MEDS ORDERED: NACL 0.9% 3 ML SYG IV SCH (17:00)
[2016-09-05] MEDS ORDERED: ACETAMINOPHEN 325 MG TAB PO PRN (17:00)
[2016-09-05] MEDS ORDERED: LORAZEPAM 2 MG INJ IV PRN (17:00)
[2016-09-05] MEDS ORDERED: GLUCOSE GEL 15 GRAM TUBE PO PRN ×2 (17:30)
[2016-09-05] MEDS ORDERED: DEXTROSE 50% 50 ML SYRINGE IV PRN ×2 (17:30)
[2016-09-05] MEDS ORDERED: GLUCOSE GEL 15 GRAM TUBE BUCCAL PRN (17:30)
[2016-09-05] MEDS ORDERED: GLUCAGON 1 MG INJ IM PRN (17:30)
[2016-09-05 17:37] VITALS: BP 139/66; PULSE 81; RESP 16
[2016-09-05] MEDS: INSULIN ASPART [NOVOLOG] 3 ML PEN SC SCH ×3 (17:53→21:23)
[2016-09-05] MEDS: SOD CHLORIDE 0.45% 1,000 ML IV SCH (17:54)
[2016-09-05] MEDS: ACYCLOVIR 800 MG TAB PO SCH ×2 (18:27→21:08)
[2016-09-05 20:21] VITALS: BP 146/70; RESP 22
--- NOTE | 2016-09-05 20:29 | HP ---
DATE OF ADMISSION: 09/05/2016 IDENTIFICATION: This is a 76-year-old female. CHIEF COMPLAINT: Nausea, vomiting. HISTORY OF PRESENT ILLNESS: A 76-year-old female with past medical history of hypertension, high ch olesterol, recent TIA, and shingles. The patient was recently here at our hospital from 08/29/2016 of 09/03/2016 and was diagnosed with TIA and shingles on admission. She was discharged home with ph ysical therapy, but came back with nausea and vomiting symptoms today, and also having difficulty am bulating. Most of the history is obtained from the ER documentation, as the patient is presently un able to provide full HPI. Apparently in the ER, the daughter stated that the patient was having dif ficulty moving to the bathroom and difficulty ambulating in general, and symptoms have been getting worse since she has been home. No fevers or chills. No chest pain or shortness of breath. PAST MEDICAL HISTORY: As stated above. ALLERGIES: NO KNOWN DRUG ALLERGIES. MEDICATIONS: 1. Acyclovir 800 mg 5 times a day. 2. Plavix 75 mg daily. 3. 2 grams b.i.d. 4. Imdur 30 mg daily. 5. Toprol XL 50 mg daily. 6. Ramipril 5 mg daily. 7. Crestor 20 mg at bedtime. 8. Aspirin 81 mg daily. 9. Diclofenac 50 mg b.i.d. 10. Gabapentin 100 mg b.i.d. 11. Calcium carbonate t.i.d. 12. Lasix 20 mg daily. 13. Cyclosporine drops in both eyes q.12h. 14. Pazeo in both eyes daily. 15. Colace 100 mg daily. 16. Famotidine 40 mg daily. 17. Glimepiride 4 mg b.i.d. 18. Aspart insulin 10 units with meals. 19. Lantus 61 units daily. 20. Methimazole 5 mg daily. 21. Janumet 50/500 one daily. 22. Kenalog applied topically daily. 23. VESIcare 5 mg daily. 24. Vitamin D2 50,000 units q. weekly. PAST SURGICAL HISTORY: Patient has had a hysterectomy, appendectomy, cholecystectomy in the past. PAST MEDICAL HISTORY: As stated above. SOCIAL HISTORY: Negative for smoking, drinking, or IV drug abuse. FAMILY HISTORY: Noncontributory. PHYSICAL EXAMINATION: VITAL SIGNS: T-max 99, pulse 99, respirations 12, blood pressure 136/77, satting at 95% on room air . GENERAL: The patient is lying in bed, in no acute distress. HEENT: Pupils equal, round, react to light, extraocular muscles intact. NECK: Supple, no thyromegaly. LUNGS: Clear to auscultation bilaterally. CARDIOVASCULAR: S1, S2 heard. No rubs or gallops. ABDOMEN: Soft, nontender, nondistended. Normal bowel sounds. No rebound or guarding. MUSCULOSKELETAL: No lower-extremity edema bilaterally. NEUROLOGIC: No focal deficits. LABORATORIES: CBC is normal. Basic metabolic panel shows BUN of 32, creatinine 1.13, glucose 243. The rest of the basic metabolic panel is normal. LFTs are normal. Lipase is normal. UA is negati ve nitrites, negative leukocyte esterase. Chest x-ray today, no evidence of any active cardiopulmon keisha disease. ASSESSMENT AND PLAN: A 76-year-old female coming in with generalized weakness, decreased ambulating , and nausea and vomiting symptoms with recent history of transient ischemic attack diagnosed. 1. Weakness, nausea, and vomiting. We will admit the patient to Med/Surg floor. Patient will most likely will be placed in a long-term facility. We will get special education case manager involved for that. Continue neuro checks. Get a PT and OT consult as well. 2. Essential hypertension. Continue Imdur and Toprol as well. 3. History of shingles. Continue acyclovir at current dose. 4. High cholesterol. Continue Lipitor. 5. Recent TIA. Again, continue aspirin and Plavix for now. 6. Gastrointestinal prophylaxis. Put the patient on Pepcid. 7. Deep venous thrombosis prophylaxis. The patient is on aspirin and Plavix. Consider SCDs. 8. Type 2 diabetes. Continue insulin sliding scale aspart and Lantus, check A1c. Dictated By: TODD SIMMONS Conf#: [id number] DID#: [id number]
[2016-09-05 21:04] VITALS: Ht 157.5 cm; Wt 85.8 kg
[2016-09-05] MEDS: CYCLOSPORINE 0.05% OPH DROPERETTE BOTH EYES SCH (21:07)
[2016-09-05] MEDS: GABAPENTIN 100 MG CAP PO SCH (21:08)
[2016-09-05] MEDS: ATORVASTATIN 80 MG TAB PO SCH (21:09)
[2016-09-05] MEDS: HEPARIN 5,000 UNIT/0.5 ML VIAL SC SCH (21:22)
[2016-09-06] MEDS: INSULIN ASPART [NOVOLOG] 3 ML PEN SC SCH ×6 (01:33→17:46)
[2016-09-06] MEDS: SOD CHLORIDE 0.45% 1,000 ML IV SCH ×3 (04:04→21:16)
[2016-09-06 06:34] LABS: ADD SCAN DIFF NO
[2016-09-06 06:49] LABS: BASOPHILS % 0.4 % (0.0-2.0); EOSINOPHILS # 0.1 10^3/ul (0.0-0.5); EOSINOPHILS % 1.6 % (0.0-7.0); HEMATOCRIT 34.2 % (37.0-47.0); HEMOGLOBIN 11.2 g/dl (12.0-16.0); LYMPHOCYTES # 2.4 10^3/ul (0.8-2.9); MEAN CORPUSCULAR HEMOGLOBIN 28.9 pg (29.0-33.0); MEAN CORPUSCULAR HGB CONC 32.7 g/dl (32.0-37.0); MEAN CORPUSCULAR VOLUME 88.1 fl (82.0-101.0); MEAN PLATELET VOLUME 9.8 fl (7.4-10.4); MONOCYTE # 0.6 10^3/ul (0.3-0.9); MONOCYTES % 10.6 % (0.0-11.0); NEUTROPHIL # 2.5 10^3/ul (1.6-7.5); PLATELET COUNT 237 10^3/UL (140-415); RED BLOOD COUNT 3.88 10^6/ul (4.20-5.40); RED CELL DISTRIBUTION WIDTH 13.5 % (11.5-14.5); WHITE BLOOD COUNT 5.6 10^3/ul (4.8-10.8)
[2016-09-06 07:19] LABS: CREATININE 1.03 mg/dl (0.44-1.00)
[2016-09-06 07:20] LABS: PHOSPHORUS 3.3 mg/dl (2.5-4.9)
[2016-09-06 07:21] LABS: CALCIUM 8.3 mg/dl (8.4-10.2); CHOL/HDL RATIO 6.5 RATIO; MAGNESIUM 1.7 mg/dl (1.7-2.5)
[2016-09-06 07:34] LABS: THYROID STIMULATING HORMONE 1.93 MIU/L (0.465-4.680)
[2016-09-06 08:14] VITALS: BP 173/80; RESP 20
[2016-09-06 08:19] VITALS: BP 148/84; RESP 20
[2016-09-06] MEDS: FAMOTIDINE 20 MG TAB PO SCH (09:31)
[2016-09-06] MEDS: CLOPIDOGREL 75 MG TAB PO SCH (09:31)
[2016-09-06] MEDS: METHIMAZOLE 5 MG TAB PO SCH (09:31)
[2016-09-06] MEDS: GABAPENTIN 100 MG CAP PO SCH ×2 (09:31→21:05)
[2016-09-06] MEDS: TRIAMCINOLONE ACET 0.5% 15 GM CR TOP SCH (09:31)
[2016-09-06] MEDS: METOPROLOL (XL) 50 MG TAB PO SCH (09:32)
[2016-09-06] MEDS: ASPIRIN (EC) 81 MG TAB PO SCH (09:33)
[2016-09-06] MEDS: CYCLOSPORINE 0.05% OPH DROPERETTE BOTH EYES SCH ×2 (09:33→22:27)
[2016-09-06] MEDS: DOCUSATE SODIUM 100 MG CAP PO SCH (09:33)
[2016-09-06] MEDS: ACYCLOVIR 800 MG TAB PO SCH ×5 (09:33→21:16)
[2016-09-06] MEDS: ISOSORBIDE DINITRATE 10 MG TAB PO SCH (09:33)
[2016-09-06] MEDS: INSULIN GLARGINE [LANtus] 3 ML PEN SC SCH (09:41)
[2016-09-06] MEDS: HEPARIN 5,000 UNIT/0.5 ML VIAL SC SCH ×2 (09:41→22:06)
[2016-09-06] MEDS: SOLIFENACIN 5 MG TAB PO SCH (09:43)
--- NOTE | 2016-09-06 11:05 | PN ---
Date/Time of Note Date/Time of Note DATE: 09/06/16 TIME: 11:02 Assessment/Plan VTE Prophylaxis VTE Prophylaxis Intervention: SCD's Lines/Catheters IV [facility]ter [facility]from [facility] Peripheral IV Urinary Cath still in place: No Assessment/Plan Chief Complaint/Hosp Course ASSESSMENT AND PLAN: A 76-year-old female coming in with generalized weakness, decreased ambulating, and nausea and vomiting symptoms with recent history of transient ischemic attack diagnosed. 1. Weakness, nausea, and vomiting - improved. - continue antiemetics, waiting to be placed in a alf facility - f/u pillowcase folder for that. - Continue neuro checks. - f/u PT and OT consults as well. 2. Essential hypertension. Continue Imdur and Toprol as well. 3. History of shingles. Continue acyclovir at current dose. 4. High cholesterol. Continue Lipitor. 5. Recent TIA. Again, continue aspirin and Plavix for now. 6. Gastrointestinal prophylaxis - Pepcid. 7. Deep venous thrombosis prophylaxis. The patient is on aspirin and Plavix - SCDs. 8. Type 2 diabetes. A1c = 8.7 - Continue insulin sliding scale aspart and Lantus Problems: Subjective 24 Hr Interval Summary Free Text/Dictation No acute events overnight. Exam/Review of Systems Vital Signs Vitals Vital Signs Date Time Temp Pulse Resp B/P Pulse Ox O2 Delivery O2 Flow Rate FiO2 09/06/16 08:19 97.9 82 20 148/84 96 09/06/16 05:27 2.0 09/05/16 20:00 Nasal Cannula Intake and Output 09/05/16 09/05/16 09/06/16 15:00 23:00 07:00 Intake Total 1075 ml Balance 1075 ml Exam GENERAL: The patient is lying in bed, in no acute distress. HEENT: Pupils equal, round, react to light, extraocular muscles intact. NECK: Supple, no thyromegaly. LUNGS: Clear to auscultation bilaterally. CARDIOVASCULAR: S1, S2 heard. No rubs or gallops. ABDOMEN: Soft, nontender, nondistended. Normal bowel sounds. No rebound or guarding. MUSCULOSKELETAL: No lower-extremity edema bilaterally. NEUROLOGIC: No focal deficits. Results Result Diagram: 09/06/16 0538 09/06/16 0538 Results 24 hrs Laboratory Tests Test 09/05/16 13:19 09/05/16 13:25 09/05/16 13:35 09/05/16 14:15 Bedside Glucose 236 H Urine Color LT. YELLOW Urine Clarity CLEAR Urine pH 5.5 Urine Specific [place] 1.025 Urine Ketones NEGATIVE Urine Nitrite NEGATIVE Urine Bilirubin NEGATIVE Urine Urobilinogen 0.2 E.U./dL Urine Leukocyte Esterase NEGATIVE Urine Microscopic RBC 0-2 Urine Microscopic WBC NONE SEEN Urine Squamous Epithelial Cells FEW Urine Bacteria MODERATE Urine Hemoglobin TRACE Urine Glucose NEGATIVE Urine Total Protein NEGATIVE White Blood Count 7.2 # Red Blood Count 4.27 Hemoglobin 12.2 Hematocrit 37.7 Mean Corpuscular Volume 88.3 Mean Corpuscular Hemoglobin 28.6 L Mean Corpuscular Hemoglobin Concent 32.4 Red Cell Distribution Width 14.9 H Platelet Count 271 # Mean Platelet Volume 10.9 H Neutrophils % 62.7 Lymphocytes % 28.0 Monocytes % 8.2 Eosinophils % 0.6 Basophils % 0.1 Nucleated Red Blood Cells % 0.0 Neutrophils # 4.5 Lymphocytes # 2.0 Monocytes # 0.6 Eosinophils # 0.0 Basophils # 0.0 Nucleated Red Blood Cells # 0.0 Sodium Level 137 Potassium Level 4.6 Chloride Level 103 Carbon Dioxide Level 24 Anion Gap 15 Blood Urea Nitrogen 32 H Creatinine 1.13 H Glucose Level 243 H Calcium Level 8.9 Total Bilirubin 0.2 Direct Bilirubin 0.00 Indirect Bilirubin 0.2 Aspartate Amino Transf (AST/SGOT) 26 Alanine Aminotransferase (ALT/SGPT) 27 Alkaline Phosphatase 95 Troponin I < 0.012 Total Protein 7.7 Albumin 3.8 Globulin 3.90 H Albumin/Globulin Ratio 0.97 Lipase 40 Test 09/05/16 17:35 09/05/16 18:50 09/05/16 21:00 09/06/16 01:27 Bedside Glucose 178 162 159 Free Thyroxine 1.22 Test 09/06/16 05:38 09/06/16 06:17 09/06/16 07:45 09/06/16 09:45 White Blood Count 5.6 # Red Blood Count 3.88 L Hemoglobin 11.2 L Hematocrit 34.2 L Mean Corpuscular Volume 88.1 Mean Corpuscular Hemoglobin 28.9 L Mean Corpuscular Hemoglobin Concent 32.7 Red Cell Distribution Width 13.5 Platelet Count 237 Mean Platelet Volume 9.8 Neutrophils % 45.0 Lymphocytes % 42.0 Monocytes % 10.6 Eosinophils % 1.6 Basophils % 0.4 Nucleated Red Blood Cells % 0.0 Neutrophils # 2.5 Lymphocytes # 2.4 Monocytes # 0.6 Eosinophils # 0.1 Basophils # 0.0 Nucleated Red Blood Cells # 0.0 Sodium Level 137 Potassium Level 4.0 Chloride Level 109 Carbon Dioxide Level 22 Anion Gap 10 # Blood Urea Nitrogen 26 H Creatinine 1.03 H Glucose Level 170 Hemoglobin A1c 8.7 H Calcium Level 8.3 L Phosphorus Level 3.3 Magnesium Level 1.7 Triglycerides Level 246 H Cholesterol Level 143 LDL Cholesterol, Calculated 72 HDL Cholesterol 22 L Cholesterol/HDL Ratio 6.5 Thyroid Stimulating Hormone (TSH) 1.930 Bedside Glucose 194 135 142 Medications Medications Current Medications Ondansetron HCl (Zofran Inj) 4 mg Q6H PRN IV NAUSEA AND/OR VOMITING; Start at 17:00 Acetaminophen (Tylenol Tab) 650 mg Q6H PRN PO PAIN LEVEL 1-3 OR FEVER; Start at 17:00 Acetaminophen/ Hydrocodone Bitart ([place] (5/325)) 1 tab Q6H PRN PO MODERATE PAIN LEVEL 4-6; Start 09/05/16 at 17:00 Morphine Sulfate (morphine) 2 mg Q4H PRN IV SEVERE PAIN LEVEL 7-10; Start 09/05 at 17:00 Docusate Sodium (Colace) 100 mg Q12H PRN PO CONSTIPATION; Start 09/05/16 at 17: 00 Magnesium Hydroxide (Milk Of Mag) 30 ml DAILY PRN PO CONSTIPATION; Start at 17:00 Sodium Biphosphate/ Sodium Phosphate (Fleet Enema) 133 ml DAILY PRN [place] CONSTIPATION; Start 09/05/16 at 17:00 Heparin Sodium (Porcine) 5000 unit 5,000 unit Q12 SC Last administered on 09:41; Admin Dose 5,000 UNIT; Start 09/05/16 at 21:00 Sodium Chloride (1/2 NS) 1,000 ml @ 75 mls/hr [id number] IV Last administered on 09/06/16 04:04; Admin Dose 75 MLS/HR; Start 09/05/16 at 16:57 Lorazepam (Ativan) 0.5 mg Q6H PRN IV ANXIETY; Start 09/05/16 at 17:00 Hydralazine HCl (Apresoline) 10 mg Q6H PRN IV ELEVATED BLOOD PRESSURE; Start at 17:00 Nitroglycerin (Nitroglycerin (Sl Tab) 0.4 Mg) 1 tab Q5M PRN SL ANGINA; Start at 17:00 Insulin Aspart (Novolog Insulin Pen) NOVOLOG *MILD* ALGORI... Q4 SC Last administered on 09/06/16 10:34; Admin Dose 1 UNIT; Start 09/05/16 at 17:00 Aspirin (Halfprin) 81 mg DAILY PO Last administered on 09/06/16 09:33; Admin Dose 81 MG; Start 09/06/16 at 09:00 Clopidogrel Bisulfate (plaVIX) 75 mg DAILY PO Last administered on 09/06/16 09: 31; Admin Dose 75 MG; Start 09/06/16 at 09:00 Cyclosporine (Restasis) 1 drop Q12 BOTH EYES Last administered on 09/06/16 09: 33; Admin Dose 1 DROP; Start 09/05/16 at 21:00 Docusate Sodium (Colace) 100 mg DAILY PO Last administered on 09/06/16 09:33; Admin Dose 100 MG; Start 09/06/16 at 09:00 Ergocalciferol (Drisdol) 50,000 unit Q7D PO ; Start 09/07/16 at 09:00 Famotidine (Pepcid) 40 mg DAILY PO Last administered on 09/06/16 09:31; Admin Dose 40 MG; Start 09/06/16 at 09:00 Gabapentin (Neurontin) 100 mg BID PO Last administered on 09/06/16 09:31; Admin Dose 100 MG; Start 09/05/16 at 21:00 Insulin Glargine (Lantus) 61 unit DAILY SC Last administered on 09/06/16 09:41 ; Admin Dose 61 UNIT; Start 09/06/16 at 09:00 Isosorbide Dinitrate (Isordil) 30 mg DAILY PO Last administered on 09/06/16 09: 33; Admin Dose 30 MG; Start 09/06/16 at 09:00 Methimazole (Tapazole) 5 mg DAILY PO Last administered on 09/06/16 09:31; Admin Dose 5 MG; Start 09/06/16 at 09:00 Metoprolol Succinate (Toprol Xl) 50 mg DAILY PO Last administered on 09/06/16 09:32; Admin Dose 50 MG; Start 09/06/16 at 09:00 Solifenacin (Vesicare) 5 mg DAILY PO Last administered on 09/06/16 09:43; Admin Dose 5 MG; Start 09/06/16 at 09:00 Triamcinolone Acetonide (Kenalog 0.5% Cr) 1 applic DAILY TOP Last administered on 09/06/16 09:31; Admin Dose 1 APPLIC; Start 09/06/16 at 09:00 Miscellaneous Information 2 gm BID PO ; Start 09/05/16 at 21:00; Status UNV Miscellaneous Information 2.5 ml DAILY BOTH EYES ; Start 09/06/16 at 09:00; Status UNV Atorvastatin Calcium (Lipitor) 80 mg DAILY@21 PO Last administered on 21:09; Admin Dose 80 MG; Start 09/05/16 at 21:00 Miscellaneous Information 1 ea NOTE XX ; Start 09/05/16 at 17:30 Glucose (Glutose) 15 gm Q15M PRN PO DECREASED GLUCOSE; Start 09/05/16 at 17:30 Glucose (Glutose) 22.5 gm Q15M PRN PO DECREASED GLUCOSE; Start 09/05/16 at 17: 30 Dextrose (D50w Syringe) 25 ml Q15M PRN IV DECREASED GLUCOSE; Start 09/05/16 at 17:30 Dextrose (D50w Syringe) 50 ml Q15M PRN IV DECREASED GLUCOSE; Start 09/05/16 at 17:30 Glucagon (Glucagen) 1 mg Q15M PRN IM DECREASED GLUCOSE; Start 09/05/16 at 17:30 Glucose (Glutose) 15 gm Q15M PRN BUCCAL DECREASED GLUCOSE; Start 09/05/16 at 17 :30 TODD DE LA CRUZ Sep 06, 2016 11:05
[2016-09-06] MEDS ORDERED: INSULIN ASPART [NOVOLOG] 3 ML PEN SC SCH (17:45)
[2016-09-06] MEDS: Insulin NOVOLOG SS MILD Algorithm (SS with meals and bedtime) SC SCH ×2 (17:46→21:10)
[2016-09-06 20:39] VITALS: BP 165/72; RESP 20
[2016-09-06] MEDS: ATORVASTATIN 80 MG TAB PO SCH (21:05)
[2016-09-07] MEDS: ACCUCHECK 2 AM XX SCH (02:17)
[2016-09-07 06:15] LABS: ADD SCAN DIFF NO
[2016-09-07 06:33] LABS: BASOPHILS % 0.5 % (0.0-2.0); EOSINOPHILS # 0.1 10^3/ul (0.0-0.5); EOSINOPHILS % 1.7 % (0.0-7.0); HEMATOCRIT 35.5 % (37.0-47.0); HEMOGLOBIN 11.7 g/dl (12.0-16.0); LYMPHOCYTES # 2.5 10^3/ul (0.8-2.9); LYMPHOCYTES % 42.7 % (15.0-51.0); MEAN CORPUSCULAR HEMOGLOBIN 28.5 pg (29.0-33.0); MEAN CORPUSCULAR VOLUME 86.4 fl (82.0-101.0); MEAN PLATELET VOLUME 9.5 fl (7.4-10.4); MONOCYTE # 0.5 10^3/ul (0.3-0.9); MONOCYTES % 8.9 % (0.0-11.0); NEUTROPHIL # 2.7 10^3/ul (1.6-7.5); NEUTROPHILS % 45.7 % (39.0-77.0); PLATELET COUNT 258 10^3/UL (140-415); RED BLOOD COUNT 4.11 10^6/ul (4.20-5.40); RED CELL DISTRIBUTION WIDTH 13.2 % (11.5-14.5); WHITE BLOOD COUNT 5.9 10^3/ul (4.8-10.8)
[2016-09-07 06:47] LABS: POTASSIUM 4.1 mmol/L (3.5-5.1)
[2016-09-07 06:49] LABS: CREATININE 0.9 mg/dl (0.44-1.00)
[2016-09-07 06:50] LABS: CALCIUM 8.8 mg/dl (8.4-10.2)
[2016-09-07 07:30] VITALS: BP 177/81; RESP 18
[2016-09-07 07:32] VITALS: BP 187/87
[2016-09-07] MEDS: METOPROLOL (XL) 50 MG TAB PO SCH (08:28)
[2016-09-07] MEDS: ACYCLOVIR 800 MG TAB PO SCH ×5 (08:28→21:23)
[2016-09-07] MEDS: ISOSORBIDE DINITRATE 10 MG TAB PO SCH (08:28)
[2016-09-07] MEDS: METHIMAZOLE 5 MG TAB PO SCH (08:28)
[2016-09-07] MEDS: SOLIFENACIN 5 MG TAB PO SCH (08:29)
[2016-09-07] MEDS: CYCLOSPORINE 0.05% OPH DROPERETTE BOTH EYES SCH ×2 (08:29→21:58)
[2016-09-07] MEDS: ASPIRIN (EC) 81 MG TAB PO SCH (08:29)
[2016-09-07] MEDS: CLOPIDOGREL 75 MG TAB PO SCH (08:29)
[2016-09-07] MEDS: FAMOTIDINE 20 MG TAB PO SCH (08:29)
[2016-09-07] MEDS: ERGOCALCIFEROL 50,000 UNIT CAP PO SCH (08:29)
[2016-09-07] MEDS: GABAPENTIN 100 MG CAP PO SCH ×2 (08:29→21:23)
[2016-09-07] MEDS: DOCUSATE SODIUM 100 MG CAP PO SCH (08:29)
[2016-09-07] MEDS: TRIAMCINOLONE ACET 0.5% 15 GM CR TOP SCH (08:30)
[2016-09-07] MEDS: INSULIN GLARGINE [LANtus] 3 ML PEN SC SCH (08:38)
[2016-09-07] MEDS: Insulin NOVOLOG SS MILD Algorithm (SS with meals and bedtime) SC SCH ×4 (08:38→21:00)
[2016-09-07] MEDS: HEPARIN 5,000 UNIT/0.5 ML VIAL SC SCH ×2 (08:38→21:58)
[2016-09-07] MEDS: INSULIN ASPART [NOVOLOG] 3 ML PEN SC SCH ×3 (08:38→18:20)
[2016-09-07 08:42] VITALS: BP 165/72; PULSE 68
--- NOTE | 2016-09-07 09:14 | PN ---
Date/Time of Note Date/Time of Note DATE: 09/07/16 TIME: 09:13 Assessment/Plan VTE Prophylaxis VTE Prophylaxis Intervention: SCD's Lines/Catheters IV [facility]ter Type (from [facility]): Peripheral IV Urinary Cath still in place: No Assessment/Plan Chief Complaint/Hosp Course ASSESSMENT AND PLAN: A 76-year-old female coming in with generalized weakness, decreased ambulating, and nausea and vomiting symptoms with recent history of transient ischemic attack diagnosed. 1. Weakness, nausea, and vomiting - improved. - continue antiemetics, waiting to be placed in a retirement facility - f/u disease case manager rn - Continue neuro checks. - f/u PT and OT consults as well - still pending. 2. Essential hypertension. Continue Imdur and Toprol as well. 3. History of shingles. Continue acyclovir at current dose. 4. High cholesterol. Continue Lipitor. 5. Recent TIA. Again, continue aspirin and Plavix for now. 6. Gastrointestinal prophylaxis - Pepcid. 7. Deep venous thrombosis prophylaxis. The patient is on aspirin and Plavix - SCDs. 8. Type 2 diabetes. A1c = 8.7 - Continue insulin sliding scale aspart and Lantus Problems: Subjective 24 Hr Interval Summary Free Text/Dictation No acute events overnight. Awaiting to be seen by PT. Exam/Review of Systems Vital Signs Vitals Vital Signs Date Time Temp Pulse Resp B/P Pulse Ox O2 Delivery O2 Flow Rate FiO2 09/07/16 08:42 68 165/72 09/07/16 07:30 98.4 18 96 09/06/16 20:00 Nasal Cannula 2.0 Intake and Output 09/06/16 09/06/16 09/07/16 15:00 23:00 07:00 Intake Total 925 ml 750 ml Balance 925 ml 750 ml Exam GENERAL: The patient is lying in bed, in no acute distress. HEENT: Pupils equal, round, react to light, extraocular muscles intact. NECK: Supple, no thyromegaly. LUNGS: Clear to auscultation bilaterally. CARDIOVASCULAR: S1, S2 heard. No rubs or gallops. ABDOMEN: Soft, nontender, nondistended. Normal bowel sounds. No rebound or guarding. MUSCULOSKELETAL: No lower-extremity edema bilaterally. NEUROLOGIC: No focal deficits. Results Result Diagram: 09/07/16 0554 09/07/16 0554 Results 24 hrs Laboratory Tests Test 09/06/16 09:45 09/06/16 11:45 09/06/16 17:08 09/06/16 21:04 Bedside Glucose 142 153 225 H 194 Test 09/07/16 02:16 09/07/16 05:54 09/07/16 08:03 Bedside Glucose 110 145 White Blood Count 5.9 Red Blood Count 4.11 L Hemoglobin 11.7 L Hematocrit 35.5 L Mean Corpuscular Volume 86.4 Mean Corpuscular Hemoglobin 28.5 L Mean Corpuscular Hemoglobin Concent 33.0 Red Cell Distribution Width 13.2 Platelet Count 258 Mean Platelet Volume 9.5 Neutrophils % 45.7 Lymphocytes % 42.7 Monocytes % 8.9 Eosinophils % 1.7 Basophils % 0.5 Nucleated Red Blood Cells % 0.0 Neutrophils # 2.7 Lymphocytes # 2.5 Monocytes # 0.5 Eosinophils # 0.1 Basophils # 0.0 Nucleated Red Blood Cells # 0.0 Sodium Level 143 Potassium Level 4.1 Chloride Level 110 Carbon Dioxide Level 21 Anion Gap 16 Blood Urea Nitrogen 21 H Creatinine 0.90 Glucose Level 136 Calcium Level 8.8 Medications Medications Current Medications Ondansetron HCl (Zofran Inj) 4 mg Q6H PRN IV NAUSEA AND/OR VOMITING; Start at 17:00 Acetaminophen (Tylenol Tab) 650 mg Q6H PRN PO PAIN LEVEL 1-3 OR FEVER; Start at 17:00 Acetaminophen/ Hydrocodone Bitart ([place] (5/325)) 1 tab Q6H PRN PO MODERATE PAIN LEVEL 4-6; Start 09/05/16 at 17:00 Morphine Sulfate (morphine) 2 mg Q4H PRN IV SEVERE PAIN LEVEL 7-10; Start 09/05 at 17:00 Docusate Sodium (Colace) 100 mg Q12H PRN PO CONSTIPATION; Start 09/05/16 at 17: 00 Magnesium Hydroxide (Milk Of Mag) 30 ml DAILY PRN PO CONSTIPATION; Start at 17:00 Sodium Biphosphate/ Sodium Phosphate (Fleet Enema) 133 ml DAILY PRN [place] CONSTIPATION; Start 09/05/16 at 17:00 Heparin Sodium (Porcine) 5000 unit 5,000 unit Q12 SC Last administered on t 08:38; Admin Dose 5,000 UNIT; Start 09/05/16 at 21:00 Sodium Chloride (1/2 NS) 1,000 ml @ 75 mls/hr [id number] IV Last administered on 09/06/16 21:16; Admin Dose 75 MLS/HR; Start 09/05/16 at 16:57 Lorazepam (Ativan) 0.5 mg Q6H PRN IV ANXIETY; Start 09/05/16 at 17:00 Hydralazine HCl (Apresoline) 10 mg Q6H PRN IV ELEVATED BLOOD PRESSURE; Start at 17:00 Nitroglycerin (Nitroglycerin (Sl Tab) 0.4 Mg) 1 tab Q5M PRN SL ANGINA; Start at 17:00 Aspirin (Halfprin) 81 mg DAILY PO Last administered on 09/07/16 08:29; Admin Dose 81 MG; Start 09/06/16 at 09:00 Clopidogrel Bisulfate (plaVIX) 75 mg DAILY PO Last administered on 09/07/16 08: 29; Admin Dose 75 MG; Start 09/06/16 at 09:00 Cyclosporine (Restasis) 1 drop Q12 BOTH EYES Last administered on 09/07/16 08: 29; Admin Dose 1 DROP; Start 09/05/16 at 21:00 Docusate Sodium (Colace) 100 mg DAILY PO Last administered on 09/07/16 08:29; Admin Dose 100 MG; Start 09/06/16 at 09:00 Ergocalciferol (Drisdol) 50,000 unit Q7D PO Last administered on 09/07/16 08:29 ; Admin Dose 50,000 UNIT; Start 09/07/16 at 09:00 Famotidine (Pepcid) 40 mg DAILY PO Last administered on 09/07/16 08:29; Admin Dose 40 MG; Start 09/06/16 at 09:00 Gabapentin (Neurontin) 100 mg BID PO Last administered on 09/07/16 08:29; Admin Dose 100 MG; Start 09/05/16 at 21:00 Insulin Glargine (Lantus) 61 unit DAILY SC Last administered on 09/07/16 08:38 ; Admin Dose 61 UNIT; Start 09/06/16 at 09:00 Isosorbide Dinitrate (Isordil) 30 mg DAILY PO Last administered on 09/07/16 08: 28; Admin Dose 30 MG; Start 09/06/16 at 09:00 Methimazole (Tapazole) 5 mg DAILY PO Last administered on 09/07/16 08:28; Admin Dose 5 MG; Start 09/06/16 at 09:00 Metoprolol Succinate (Toprol Xl) 50 mg DAILY PO Last administered on 09/07/16 08:28; Admin Dose 50 MG; Start 09/06/16 at 09:00 Solifenacin (Vesicare) 5 mg DAILY PO Last administered on 09/07/16 08:29; Admin Dose 5 MG; Start 09/06/16 at 09:00 Triamcinolone Acetonide (Kenalog 0.5% Cr) 1 applic DAILY TOP Last administered on 09/07/16 08:30; Admin Dose 1 APPLIC; Start 09/06/16 at 09:00 Miscellaneous Information 2 gm BID PO ; Start 09/05/16 at 21:00; Status UNV Miscellaneous Information 2.5 ml DAILY BOTH EYES ; Start 09/06/16 at 09:00; Status UNV Atorvastatin Calcium (Lipitor) 80 mg DAILY@21 PO Last administered on 09/06/16 21:05; Admin Dose 80 MG; Start 09/05/16 at 21:00 Miscellaneous Information 1 ea NOTE XX ; Start 09/05/16 at 17:30 Glucose (Glutose) 15 gm Q15M PRN PO DECREASED GLUCOSE; Start 09/05/16 at 17:30 Glucose (Glutose) 22.5 gm Q15M PRN PO DECREASED GLUCOSE; Start 09/05/16 at 17: 30 Dextrose (D50w Syringe) 25 ml Q15M PRN IV DECREASED GLUCOSE; Start 09/05/16 at 17:30 Dextrose (D50w Syringe) 50 ml Q15M PRN IV DECREASED GLUCOSE; Start 09/05/16 at 17:30 Glucagon (Glucagen) 1 mg Q15M PRN IM DECREASED GLUCOSE; Start 09/05/16 at 17:30 Glucose (Glutose) 15 gm Q15M PRN BUCCAL DECREASED GLUCOSE; Start 09/05/16 at 17 :30 Diagnostic Test (Pha) (Accu-Chek) 1 ea 02 XX Last administered on 09/07/16 02: 17; Admin Dose 1 EA; Start 09/06/16 at 12:30 TODD DE LA CRUZ Sep 07, 2016 09:14
[2016-09-07] MEDS: SOD CHLORIDE 0.45% 1,000 ML IV SCH ×2 (10:55→22:17)
[2016-09-07 19:46] VITALS: BP 160/77; RESP 16
[2016-09-07] MEDS: ATORVASTATIN 80 MG TAB PO SCH (21:23)
[2016-09-08] MEDS: SOD CHLORIDE 0.45% 1,000 ML IV SCH ×2 (00:28→15:15)
[2016-09-08] MEDS: ACCUCHECK 2 AM XX SCH (02:00)
[2016-09-08 06:03] LABS: ADD SCAN DIFF NO
[2016-09-08 06:18] LABS: BASOPHILS % 0.4 % (0.0-2.0); EOSINOPHILS # 0.1 10^3/ul (0.0-0.5); EOSINOPHILS % 1.6 % (0.0-7.0); LYMPHOCYTES # 2.7 10^3/ul (0.8-2.9); LYMPHOCYTES % 38.8 % (15.0-51.0); MEAN CORPUSCULAR HEMOGLOBIN 28.4 pg (29.0-33.0); MEAN CORPUSCULAR HGB CONC 33.3 g/dl (32.0-37.0); MEAN CORPUSCULAR VOLUME 85.3 fl (82.0-101.0); MEAN PLATELET VOLUME 9.5 fl (7.4-10.4); MONOCYTE # 0.6 10^3/ul (0.3-0.9); MONOCYTES % 8.4 % (0.0-11.0); NEUTROPHIL # 3.5 10^3/ul (1.6-7.5); NEUTROPHILS % 50.5 % (39.0-77.0); PLATELET COUNT 284 10^3/UL (140-415); RED BLOOD COUNT 4.22 10^6/ul (4.20-5.40); RED CELL DISTRIBUTION WIDTH 13.3 % (11.5-14.5); WHITE BLOOD COUNT 6.9 10^3/ul (4.8-10.8)
[2016-09-08 06:25] LABS: POTASSIUM 3.6 mmol/L (3.5-5.1)
[2016-09-08 06:28] LABS: CREATININE 0.87 mg/dl (0.44-1.00)
[2016-09-08 06:29] LABS: CALCIUM 9.1 mg/dl (8.4-10.2)
[2016-09-08 07:29] VITALS: BP 190/85; RESP 18
[2016-09-08 07:30] VITALS: BP 201/91
[2016-09-08] MEDS: Insulin NOVOLOG SS MILD Algorithm (SS with meals and bedtime) SC SCH ×4 (07:55→21:19)
[2016-09-08] MEDS: METOPROLOL (XL) 50 MG TAB PO SCH (08:02)
[2016-09-08] MEDS: DOCUSATE SODIUM 100 MG CAP PO SCH (08:03)
[2016-09-08] MEDS: METHIMAZOLE 5 MG TAB PO SCH (08:03)
[2016-09-08] MEDS: CLOPIDOGREL 75 MG TAB PO SCH (08:03)
[2016-09-08] MEDS: FAMOTIDINE 20 MG TAB PO SCH (08:03)
[2016-09-08] MEDS: SOLIFENACIN 5 MG TAB PO SCH (08:03)
[2016-09-08] MEDS: ISOSORBIDE DINITRATE 10 MG TAB PO SCH (08:03)
[2016-09-08] MEDS: GABAPENTIN 100 MG CAP PO SCH ×2 (08:03→21:05)
[2016-09-08] MEDS: ASPIRIN (EC) 81 MG TAB PO SCH (08:04)
[2016-09-08] MEDS: HEPARIN 5,000 UNIT/0.5 ML VIAL SC SCH ×2 (08:40→21:09)
[2016-09-08] MEDS: INSULIN GLARGINE [LANtus] 3 ML PEN SC SCH (08:41)
[2016-09-08] MEDS: INSULIN ASPART [NOVOLOG] 3 ML PEN SC SCH ×3 (08:41→17:26)
[2016-09-08] MEDS: CYCLOSPORINE 0.05% OPH DROPERETTE BOTH EYES SCH ×2 (09:00→21:05)
[2016-09-08] MEDS: TRIAMCINOLONE ACET 0.5% 15 GM CR TOP SCH (10:06)
[2016-09-08] MEDS: OLOPATADINE 0.1% 5 ML OPH BOTH EYES SCH ×2 (10:06→21:07)
[2016-09-08] MEDS: FISH OIL 1,000 MG CAP PO SCH ×2 (10:06→21:05)
[2016-09-08] MEDS: ACYCLOVIR 800 MG TAB PO SCH ×3 (10:06→15:26)
--- NOTE | 2016-09-08 15:57 | PN ---
Date/Time of Note Date/Time of Note DATE: 09/08/16 TIME: 15:56 Assessment/Plan VTE Prophylaxis VTE Prophylaxis Intervention: SCD's Lines/Catheters IV Catheter Type (from Nrsg): Peripheral IV Urinary Cath still in place: No Assessment/Plan Assessment/Plan 1. Intractable nausea, vomiting, moderate to severe dehydration, intractable pain due to shingles 2. Essential hypertension. Continue Imdur and Toprol as well. 3. History of shingles. Continue acyclovir at current dose. 4. High cholesterol. Continue Lipitor. 5. Recent TIA. Again, continue aspirin and Plavix for now. 6. Gastrointestinal prophylaxis - Pepcid. 7. Deep venous thrombosis prophylaxis. The patient is on aspirin and Plavix - SCDs. 8. Type 2 diabetes. A1c = 8.7 - Continue insulin sliding scale aspart and Lantus Plan: IV abx, IVF Pain control ID consult to see pt Subjective 24 Hr Interval Summary Free Text/Dictation pt had a episode of vomiting, BP stable, c/o pain with shingles, on acyclovir Exam/Review of Systems Vital Signs Vitals Vital Signs Date Time Temp Pulse Resp B/P Pulse Ox O2 Delivery O2 Flow Rate FiO2 09/08/16 07:30 201/91 09/08/16 07:29 97.8 78 18 98 09/07/16 20:00 Nasal Cannula 2.0 Intake and Output 09/07/16 09/07/16 09/08/16 15:00 23:00 07:00 Intake Total 1770 ml 1080 ml Output Total 0 ml Balance 1770 ml 1080 ml Exam GENERAL: The patient is lying in bed, in no acute distress. HEENT: Pupils equal, round, react to light, extraocular muscles intact. NECK: Supple, no thyromegaly. LUNGS: Clear to auscultation bilaterally. CARDIOVASCULAR: S1, S2 heard. No rubs or gallops. ABDOMEN: Soft, nontender, nondistended. Normal bowel sounds. No rebound or guarding. MUSCULOSKELETAL: No lower-extremity edema bilaterally. NEUROLOGIC: No focal deficits. Results Result Diagram: 09/08/16 0531 09/08/16 0531 Results 24 hrs Laboratory Tests Test 09/07/16 17:30 09/07/16 18:16 09/07/16 21:25 09/08/16 05:31 Bedside Glucose 130 139 71 White Blood Count 6.9 Red Blood Count 4.22 Hemoglobin 12.0 Hematocrit 36.0 L Mean Corpuscular Volume 85.3 Mean Corpuscular Hemoglobin 28.4 L Mean Corpuscular Hemoglobin Concent 33.3 Red Cell Distribution Width 13.3 Platelet Count 284 Mean Platelet Volume 9.5 Neutrophils % 50.5 Lymphocytes % 38.8 Monocytes % 8.4 Eosinophils % 1.6 Basophils % 0.4 Nucleated Red Blood Cells % 0.0 Neutrophils # 3.5 Lymphocytes # 2.7 Monocytes # 0.6 Eosinophils # 0.1 Basophils # 0.0 Nucleated Red Blood Cells # 0.0 Sodium Level 142 Potassium Level 3.6 Chloride Level 107 Carbon Dioxide Level 22 Anion Gap 17 H Blood Urea Nitrogen 16 Creatinine 0.87 Glucose Level 124 Calcium Level 9.1 Test 09/08/16 07:54 09/08/16 12:09 Bedside Glucose 129 303 H Medications Medications Current Medications Ondansetron HCl (Zofran Inj) 4 mg Q6H PRN IV NAUSEA AND/OR VOMITING; Start at 17:00 Acetaminophen (Tylenol Tab) 650 mg Q6H PRN PO PAIN LEVEL 1-3 OR FEVER; Start at 17:00 Acetaminophen/ Hydrocodone Bitart ([place] (5/325)) 1 tab Q6H PRN PO MODERATE PAIN LEVEL 4-6; Start 09/05/16 at 17:00 Morphine Sulfate (morphine) 2 mg Q4H PRN IV SEVERE PAIN LEVEL 7-10; Start 09/05 at 17:00 Docusate Sodium (Colace) 100 mg Q12H PRN PO CONSTIPATION; Start 09/05/16 at 17: 00 Magnesium Hydroxide (Milk Of Mag) 30 ml DAILY PRN PO CONSTIPATION; Start at 17:00 Sodium Biphosphate/ Sodium Phosphate (Fleet Enema) 133 ml DAILY PRN [place] CONSTIPATION; Start 09/05/16 at 17:00 Heparin Sodium (Porcine) 5000 unit 5,000 unit Q12 SC Last administered on 08:40; Admin Dose 5,000 UNIT; Start 09/05/16 at 21:00 Sodium Chloride (1/2 NS) 1,000 ml @ 75 mls/hr [id number] IV Last administered on 09/08/16 15:15; Admin Dose 75 MLS/HR; Start 09/05/16 at 16:57 Lorazepam (Ativan) 0.5 mg Q6H PRN IV ANXIETY; Start 09/05/16 at 17:00 Hydralazine HCl (Apresoline) 10 mg Q6H PRN IV ELEVATED BLOOD PRESSURE; Start at 17:00 Nitroglycerin (Nitroglycerin (Sl Tab) 0.4 Mg) 1 tab Q5M PRN SL ANGINA; Start at 17:00 Aspirin (Halfprin) 81 mg DAILY PO Last administered on 09/08/16 08:04; Admin Dose 81 MG; Start 09/06/16 at 09:00 Clopidogrel Bisulfate (plaVIX) 75 mg DAILY PO Last administered on 09/08/16 08: 03; Admin Dose 75 MG; Start 09/06/16 at 09:00 Cyclosporine (Restasis) 1 drop Q12 BOTH EYES Last administered on 09/07/16 21: 58; Admin Dose 1 DROP; Start 09/05/16 at 21:00 Docusate Sodium (Colace) 100 mg DAILY PO Last administered on 09/08/16 08:03; Admin Dose 100 MG; Start 09/06/16 at 09:00 Ergocalciferol (Drisdol) 50,000 unit Q7D PO Last administered on 09/07/16 08:29 ; Admin Dose 50,000 UNIT; Start 09/07/16 at 09:00 Famotidine (Pepcid) 40 mg DAILY PO Last administered on 09/08/16 08:03; Admin Dose 40 MG; Start 09/06/16 at 09:00 Gabapentin (Neurontin) 100 mg BID PO Last administered on 09/08/16 08:03; Admin Dose 100 MG; Start 09/05/16 at 21:00 Insulin Glargine (Lantus) 61 unit DAILY SC Last administered on 09/08/16 08:41 ; Admin Dose 61 UNIT; Start 09/06/16 at 09:00 Isosorbide Dinitrate (Isordil) 30 mg DAILY PO Last administered on 09/08/16 08: 03; Admin Dose 30 MG; Start 09/06/16 at 09:00 Methimazole (Tapazole) 5 mg DAILY PO Last administered on 09/08/16 08:03; Admin Dose 5 MG; Start 09/06/16 at 09:00 Metoprolol Succinate (Toprol Xl) 50 mg DAILY PO Last administered on 09/08/16 08:02; Admin Dose 50 MG; Start 09/06/16 at 09:00 Solifenacin (Vesicare) 5 mg DAILY PO Last administered on 09/08/16 08:03; Admin Dose 5 MG; Start 09/06/16 at 09:00 Triamcinolone Acetonide (Kenalog 0.5% Cr) 1 applic DAILY TOP Last administered on 09/08/16 10:06; Admin Dose 1 APPLIC; Start 09/06/16 at 09:00 Fish Oil (Fish Oil) 1,000 mg BID PO Last administered on 09/08/16 10:06; Admin Dose 1,000 MG; Start 09/08/16 at 09:00 Olopatadine HCl (Patanol 0.1% Oph) 1 drop BID BOTH EYES Last administered on 10:06; Admin Dose 1 DROP; Start 09/08/16 at 09:00 Atorvastatin Calcium (Lipitor) 80 mg DAILY@21 PO Last administered on 09/07/16 21:23; Admin Dose 80 MG; Start 09/05/16 at 21:00 Miscellaneous Information 1 ea NOTE XX ; Start 09/05/16 at 17:30 Glucose (Glutose) 15 gm Q15M PRN PO DECREASED GLUCOSE; Start 09/05/16 at 17:30 Glucose (Glutose) 22.5 gm Q15M PRN PO DECREASED GLUCOSE; Start 09/05/16 at 17: 30 Dextrose (D50w Syringe) 25 ml Q15M PRN IV DECREASED GLUCOSE; Start 09/05/16 at 17:30 Dextrose (D50w Syringe) 50 ml Q15M PRN IV DECREASED GLUCOSE; Start 09/05/16 at 17:30 Glucagon (Glucagen) 1 mg Q15M PRN IM DECREASED GLUCOSE; Start 09/05/16 at 17:30 Glucose (Glutose) 15 gm Q15M PRN BUCCAL DECREASED GLUCOSE; Start 09/05/16 at 17 :30 Diagnostic Test (Pha) (Accu-Chek) 1 ea 02 XX Last administered on 09/07/16 02: 17; Admin Dose 1 EA; Start 4/1/17 at 12:30 HUMBERTO LING MD Sep 08, 2016 15:57
[2016-09-08] MEDS: ACYCLOVIR 400 MG TAB PO SCH ×2 (18:11→21:24)
--- NOTE | 2016-09-08 19:36 | CONS ---
DATE OF ADMISSION: 09/05/2016 DATE OF CONSULTATION: 09/08/2016 TYPE OF CONSULTATION: Infectious Disease. REASON FOR CONSULTATION: Antibiotic management. HISTORY OF PRESENT ILLNESS: Kamari Kemp is a 76-year-old [place] female with numerous problem s who comes in with nausea, vomiting and is being seen for antibiotic management. Her past problems include: 1. Hypertension. 2. Hypercholesterolemia. 3. Recent TIA. 4. Shingles. 5. History of TIA and shingles on admission. She was discharged home with physical therapy but cam e back with nausea, vomiting today and difficulty ambulating. 6. Her past problems also include surgeries for status post hysterectomy, status post appendectomy, status post cholecystectomy. PAST MEDICAL HISTORY: Operations as outlined. FAMILY HISTORY: Noncontributory. SOCIAL HISTORY: She does not smoke, drink or abuse drugs. ALLERGIES: NONE TO PENICILLIN, SULFA OR FOODS. MEDICATIONS: Per chart. REVIEW OF SYSTEMS: As per HPI. PHYSICAL EXAMINATION: GENERAL: The patient is an elderly-appearing, markedly obese female who is lethargic but arousable, in no obvious distress. VITAL SIGNS: Stable. She is afebrile. SKIN: Without generalized rash. HEENT: Within normal limits. NECK: Supple. LYMPH NODES: None palpable. CHEST: Decreased breath sounds at the bases. HEART: Without murmur or gallop. ABDOMEN: Soft, nontender without organosplenomegaly or masses. EXTREMITIES: Without cyanosis, clubbing or edema. RECTAL AND GENITAL: Deferred. NEUROLOGIC: No focal neurological abnormalities. The rash of shingles is located in the right axilla and extends forward to the sternum and backwards to the spine on the right side. They are not crusted, but they are not active. There are no vesic les, no blisters. It is very possible that she was adequately treated at this point. However, I do not see a problem with giving her IV acyclovir. She was hospitalized 08/29 to 09/03, so 5 days of acyclovir should be more than adequate. I think that we will just observe her at this point and fady e her comfortable. If there is increase in the outbreak, then will add IV acyclovir to her regimen. I will dictate my findings to the hospitalist. She is having a lot of pain due to the shingles, b ut that's postherpetic neuralgia, and that's not something that is treatable with the acyclovir. At the current time, she is on acyclovir 800 mg 5 times a day. That's a bit excessive, and I'm going to discontinue her acyclovir at this point, or at least I'll cut it down to 400 mg 5 times a day. Dictated By: CR ORELLANA MD, JD/JEAN Conf#: [id number] DID#: [id number]
[2016-09-08 21:00] VITALS: BP 128/65; PULSE 74
[2016-09-08] MEDS: ATORVASTATIN 80 MG TAB PO SCH (21:05)
[2016-09-08 21:17] VITALS: BP 179/78; RESP 18
[2016-09-09] MEDS: SOD CHLORIDE 0.45% 1,000 ML IV SCH ×2 (00:57→07:42)
[2016-09-09] MEDS: ACCUCHECK 2 AM XX SCH (02:44)
[2016-09-09 05:36] LABS: ADD SCAN DIFF NO
[2016-09-09 05:45] LABS: BASOPHILS % 0.4 % (0.0-2.0); EOSINOPHILS # 0.1 10^3/ul (0.0-0.5); HEMATOCRIT 34.7 % (37.0-47.0); LYMPHOCYTES # 2.6 10^3/ul (0.8-2.9); LYMPHOCYTES % 28.7 % (15.0-51.0); MEAN CORPUSCULAR HEMOGLOBIN 29.1 pg (29.0-33.0); MEAN CORPUSCULAR HGB CONC 34.6 g/dl (32.0-37.0); MEAN CORPUSCULAR VOLUME 84.2 fl (82.0-101.0); MEAN PLATELET VOLUME 9.1 fl (7.4-10.4); MONOCYTE # 0.8 10^3/ul (0.3-0.9); MONOCYTES % 9.1 % (0.0-11.0); NEUTROPHIL # 5.5 10^3/ul (1.6-7.5); NEUTROPHILS % 60.4 % (39.0-77.0); PLATELET COUNT 302 10^3/UL (140-415); RED BLOOD COUNT 4.12 10^6/ul (4.20-5.40); RED CELL DISTRIBUTION WIDTH 13.1 % (11.5-14.5); WHITE BLOOD COUNT 9.1 10^3/ul (4.8-10.8)
[2016-09-09 05:54] LABS: POTASSIUM 3.8 mmol/L (3.5-5.1)
[2016-09-09 05:57] LABS: CREATININE 0.84 mg/dl (0.44-1.00)
[2016-09-09 05:58] LABS: CALCIUM 8.9 mg/dl (8.4-10.2)
[2016-09-09 07:28] VITALS: BP 183/81; RESP 20
[2016-09-09 07:29] VITALS: BP 173/82
[2016-09-09] MEDS: Insulin NOVOLOG SS MILD Algorithm (SS with meals and bedtime) SC SCH ×4 (08:00→20:55)
[2016-09-09] MEDS: TRIAMCINOLONE ACET 0.5% 15 GM CR TOP SCH (08:34)
[2016-09-09] MEDS: ISOSORBIDE DINITRATE 10 MG TAB PO SCH (08:34)
[2016-09-09] MEDS: CLOPIDOGREL 75 MG TAB PO SCH (08:34)
[2016-09-09] MEDS: METHIMAZOLE 5 MG TAB PO SCH (08:34)
[2016-09-09] MEDS: OLOPATADINE 0.1% 5 ML OPH BOTH EYES SCH ×2 (08:34→20:51)
[2016-09-09] MEDS: SOLIFENACIN 5 MG TAB PO SCH (08:35)
[2016-09-09] MEDS: FISH OIL 1,000 MG CAP PO SCH ×2 (08:35→20:51)
[2016-09-09] MEDS: CYCLOSPORINE 0.05% OPH DROPERETTE BOTH EYES SCH ×2 (08:35→20:51)
[2016-09-09] MEDS: ASPIRIN (EC) 81 MG TAB PO SCH (08:35)
[2016-09-09] MEDS: FAMOTIDINE 20 MG TAB PO SCH (08:35)
[2016-09-09] MEDS: GABAPENTIN 100 MG CAP PO SCH ×2 (08:35→20:51)
[2016-09-09] MEDS: DOCUSATE SODIUM 100 MG CAP PO SCH (08:35)
[2016-09-09] MEDS: METOPROLOL (XL) 50 MG TAB PO SCH (08:36)
[2016-09-09] MEDS: INSULIN GLARGINE [LANtus] 3 ML PEN SC SCH (09:03)
[2016-09-09] MEDS: INSULIN ASPART [NOVOLOG] 3 ML PEN SC SCH ×3 (09:03→18:54)
[2016-09-09] MEDS: ACYCLOVIR 400 MG TAB PO SCH ×5 (09:04→20:51)
[2016-09-09] MEDS: HEPARIN 5,000 UNIT/0.5 ML VIAL SC SCH ×2 (09:04→20:56)
[2016-09-09] MEDS ORDERED: IBUPROFEN 400 MG TAB PO PRN (10:00)
[2016-09-09 10:54] LABS: URIC ACID 6.9 mg/dl (3.1-7.9)
--- NOTE | 2016-09-09 11:04 | PN ---
Date/Time of Note Date/Time of Note DATE: 09/09/16 TIME: 11:00 Assessment/Plan VTE Prophylaxis VTE Prophylaxis Intervention: SCD's Lines/Catheters IV Catheter Type (from Nrsg): Peripheral IV Urinary Cath still in place: No Assessment/Plan Assessment/Plan 1. Intractable nausea, vomiting, moderate to severe dehydration, intractable pain due to shingles 2. Right knee cellultiis with Intractable right knee pain, pt can not walk due to severe pain 2. Essential hypertension. Continue Imdur and Toprol as well. 3. History of shingles. Continue acyclovir at current dose. 4. High cholesterol. Continue Lipitor. 5. Recent TIA. Again, continue aspirin and Plavix for now. 6. Gastrointestinal prophylaxis - Pepcid. 7. Deep venous thrombosis prophylaxis. The patient is on aspirin and Plavix - SCDs. 8. Type 2 diabetes. A1c = 8.7 - Continue insulin sliding scale aspart and Lantus Plan: S/p ID consult, pt has a foul smellign urine, will order UA and urine cx IV abx as per ID Right knee cellultiis with Intractable right knee pain, pt can not walk due to severe pain - MRI Right knee for severe pain, ESR, CRP, X ray right knee pain Uric acid Ibuprofen prn pain, fever Pain control SCD for DVT prophylaxis Subjective 24 Hr Interval Summary Free Text/Dictation pt stable, no acute events, c/o right knee pain, knee joint very tender and Warm , afebrile Exam/Review of Systems Vital Signs Vitals Vital Signs Date Time Temp Pulse Resp B/P Pulse Ox O2 Delivery O2 Flow Rate FiO2 09/09/16 07:29 173/82 09/09/16 07:28 98.0 85 20 95 09/09/16 02:13 21 09/08/16 21:00 Room Air 09/07/16 20:00 2.0 Intake and Output 09/08/16 09/08/16 09/09/16 15:00 23:00 07:00 Intake Total 1780 ml 825 ml Balance 1780 ml 825 ml Exam GENERAL: mild distress due to pain HEENT: Pupils equal, round, react to light, extraocular muscles intact. NECK: Supple, no thyromegaly. LUNGS: Clear to auscultation bilaterally. CARDIOVASCULAR: S1, S2 heard. No rubs or gallops. ABDOMEN: Soft, nontender, nondistended. Normal bowel sounds. No rebound or guarding. MUSCULOSKELETAL: no LE edema, Right Knee tender to palpation, warm to touch, pt with excruciating pain NEUROLOGIC: No focal deficits. Results Result Diagram: 09/09/16 0525 09/09/16 0525 Results 24 hrs Laboratory Tests Test 09/08/16 12:09 09/08/16 17:17 09/08/16 21:10 09/09/16 02:26 Bedside Glucose 303 H 253 H 183 118 Test 09/09/16 05:25 09/09/16 07:58 White Blood Count 9.1 # Red Blood Count 4.12 L Hemoglobin 12.0 Hematocrit 34.7 L Mean Corpuscular Volume 84.2 Mean Corpuscular Hemoglobin 29.1 Mean Corpuscular Hemoglobin Concent 34.6 Red Cell Distribution Width 13.1 Platelet Count 302 Mean Platelet Volume 9.1 Neutrophils % 60.4 Lymphocytes % 28.7 Monocytes % 9.1 Eosinophils % 1.0 Basophils % 0.4 Nucleated Red Blood Cells % 0.0 Neutrophils # 5.5 Lymphocytes # 2.6 Monocytes # 0.8 Eosinophils # 0.1 Basophils # 0.0 Nucleated Red Blood Cells # 0.0 Sodium Level 138 Potassium Level 3.8 Chloride Level 108 Carbon Dioxide Level 21 Anion Gap 13 Blood Urea Nitrogen 14 Creatinine 0.84 Glucose Level 111 Uric Acid 6.9 Calcium Level 8.9 Creatine Kinase 29 Bedside Glucose 127 Medications Medications Current Medications Ondansetron HCl (Zofran Inj) 4 mg Q6H PRN IV NAUSEA AND/OR VOMITING; Start at 17:00 Acetaminophen (Tylenol Tab) 650 mg Q6H PRN PO PAIN LEVEL 1-3 OR FEVER; Start at 17:00 Acetaminophen/ Hydrocodone Bitart ([place] (5/325)) 1 tab Q6H PRN PO MODERATE PAIN LEVEL 4-6; Start 09/05/16 at 17:00 Morphine Sulfate (morphine) 2 mg Q4H PRN IV SEVERE PAIN LEVEL 7-10; Start 09/05 at 17:00 Docusate Sodium (Colace) 100 mg Q12H PRN PO CONSTIPATION; Start 09/05/16 at 17: 00 Magnesium Hydroxide (Milk Of Mag) 30 ml DAILY PRN PO CONSTIPATION; Start at 17:00 Sodium Biphosphate/ Sodium Phosphate (Fleet Enema) [address] CONSTIPATION; Start 09/05/16 at 17:00 Heparin Sodium (Porcine) 5000 unit 5,000 unit Q12 SC Last administered on 09:04; Admin Dose 5,000 UNIT; Start 09/05/16 at 21:00 Sodium Chloride (1/2 NS) 1,000 ml @ 75 mls/hr [id number] IV Last administered on 09/09/16 07:42; Admin Dose 75 MLS/HR; Start 09/05/16 at 16:57 Lorazepam (Ativan) 0.5 mg Q6H PRN IV ANXIETY; Start 09/05/16 at 17:00 Hydralazine HCl (Apresoline) 10 mg Q6H PRN IV ELEVATED BLOOD PRESSURE; Start at 17:00 Nitroglycerin (Nitroglycerin (Sl Tab) 0.4 Mg) 1 tab Q5M PRN SL ANGINA; Start at 17:00 Aspirin (Halfprin) 81 mg DAILY PO Last administered on 09/09/16 08:35; Admin Dose 81 MG; Start 09/06/16 at 09:00 Clopidogrel Bisulfate (plaVIX) 75 mg DAILY PO Last administered on 09/09/16 08: 34; Admin Dose 75 MG; Start 09/06/16 at 09:00 Cyclosporine (Restasis) 1 drop Q12 BOTH EYES Last administered on 09/09/16 08: 35; Admin Dose 1 DROP; Start 09/05/16 at 21:00 Docusate Sodium (Colace) 100 mg DAILY PO Last administered on 09/09/16 08:35; Admin Dose 100 MG; Start 09/06/16 at 09:00 Ergocalciferol (Drisdol) 50,000 unit Q7D PO Last administered on 09/07/16 08:29 ; Admin Dose 50,000 UNIT; Start 09/07/16 at 09:00 Famotidine (Pepcid) 40 mg DAILY PO Last administered on 09/09/16 08:35; Admin Dose 40 MG; Start 09/06/16 at 09:00 Gabapentin (Neurontin) 100 mg BID PO Last administered on 09/09/16 08:35; Admin Dose 100 MG; Start 09/05/16 at 21:00 Insulin Glargine (Lantus) 61 unit DAILY SC Last administered on 09/09/16 09:03 ; Admin Dose 61 UNIT; Start 09/06/16 at 09:00 Isosorbide Dinitrate (Isordil) 30 mg DAILY PO Last administered on 09/09/16 08: 34; Admin Dose 30 MG; Start 09/06/16 at 09:00 Methimazole (Tapazole) 5 mg DAILY PO Last administered on 09/09/16 08:34; Admin Dose 5 MG; Start 09/06/16 at 09:00 Metoprolol Succinate (Toprol Xl) 50 mg DAILY PO Last administered on 09/09/16 08:36; Admin Dose 50 MG; Start 09/06/16 at 09:00 Solifenacin (Vesicare) 5 mg DAILY PO Last administered on 09/09/16 08:35; Admin Dose 5 MG; Start 09/06/16 at 09:00 Triamcinolone Acetonide (Kenalog 0.5% Cr) 1 applic DAILY TOP Last administered on 09/09/16 08:34; Admin Dose 1 APPLIC; Start 09/06/16 at 09:00 Fish Oil (Fish Oil) 1,000 mg BID PO Last administered on 09/09/16 08:35; Admin Dose 1,000 MG; Start 09/08/16 at 09:00 Olopatadine HCl (Patanol 0.1% Oph) 1 drop BID BOTH EYES Last administered on 08:34; Admin Dose 1 DROP; Start 09/08/16 at 09:00 Atorvastatin Calcium (Lipitor) 80 mg DAILY@21 PO Last administered on 09/08/16 21:05; Admin Dose 80 MG; Start 09/05/16 at 21:00 Miscellaneous Information 1 ea NOTE XX ; Start 09/05/16 at 17:30 Glucose (Glutose) 15 gm Q15M PRN PO DECREASED GLUCOSE; Start 09/05/16 at 17:30 Glucose (Glutose) 22.5 gm Q15M PRN PO DECREASED GLUCOSE; Start 09/05/16 at 17: 30 Dextrose (D50w Syringe) 25 ml Q15M PRN IV DECREASED GLUCOSE; Start 09/05/16 at 17:30 Dextrose (D50w Syringe) 50 ml Q15M PRN IV DECREASED GLUCOSE; Start 09/05/16 at 17:30 Glucagon (Glucagen) 1 mg Q15M PRN IM DECREASED GLUCOSE; Start 09/05/16 at 17:30 Glucose (Glutose) 15 gm Q15M PRN BUCCAL DECREASED GLUCOSE; Start 09/05/16 at 17 :30 Diagnostic Test (Pha) (Accu-Chek) 1 ea 02 XX Last administered on 09/09/16t 02: 44; Admin Dose 1 EA; Start 09/06/16 at 12:30 Ibuprofen (Motrin) 400 mg TID PRN PO MODERATE PAIN LEVEL 4-6; Start 09/09/16 at 10:00 HUMBERTO LING MD Sep 09, 2016 11:04
--- NOTE | 2016-09-09 16:20 | RADRPT ---
PROCEDURE: MRI OF THE RIGHT KNEE CLINICAL INDICATION: Pain, tenderness, warm to palpation. Dehydration. Images obtained were of the right knee. TECHNIQUE: MRI images were obtained utilizing multiple sequences in multiple planes. Images were i nterpreted on a high-resolution PACS system. COMPARISON: None available. FINDINGS: There is a degenerative flap tear of the posterior horn medial meniscus extending to near the aircraft communicator ior root attachment with blunting of the posterior horn medial meniscus on sagittal images 07-09. T here is a flap of meniscus within the meniscotibial recess measuring about 4 mm transverse on spencer l images 15 - 16. There is high-grade partial thickness chondral loss throughout the anterior to po sterior weightbearing medial femoral condyle. Mild chondral loss along the medial tibial plateau is also present. There are small subchondral cysts along the medial aspect of the medial femoral cond yle. There is osseous spurring within the medial compartment. There is no tear of the lateral meniscus. There is intrasubstance degeneration of the lateral menis cus. There is mild partial-thickness chondral loss within the lateral compartment more prominent ken ng the medial aspect. The anterior and posterior cruciate ligaments are intact with mild mucoid degeneration. The medial and lateral collateral ligaments are intact. The posterolateral corner supporting struct ures are intact. There is a small amount of loculated fluid within the popliteus tendon sheath with mild synovitis as well as a 4 mm chondral body on sagittal image 14. There is full-thickness chondral loss throughout the lateral patellar facet and median eminence of t he patella with minimal subchondral marrow edema. There is also full-thickness chondral loss throug hout the central to lateral trochlea. There is mild partial-thickness chondral loss and fraying wit hin the medial patellofemoral compartment. The quadriceps tendon is intact with mild thickening of the tendon fibers and small enthesophytes wi thin the superior patella at the insertion of the distal quadriceps tendon. The medial and lateral patellofemoral ligament complexes are intact. The patellar tendon is intact. There is normal signal within Hoffa's fat pad. There is a [id number] joint effusion with synovitis. A very small popliteal cyst is present. There is mild to moderate tendinosis of the medial head gastrocnemius tendon at its origin. The proximal tibiofibular joint is intact. There is mild fatty atrophy of the muscles throughout th e knee. RPTAT: ZZ IMPRESSION: 1. Degenerative flap tear of the posterior horn medial meniscus with degeneration and blunting of t he posterior horn near the posterior root attachment as well as a 4 mm wide flap of meniscus within the meniscotibial recess. 2. Severe osteoarthrosis of the lateral patellofemoral compartment with full-thickness chondral los s throughout the lateral patellar facet and median eminence of the patella and central to lateral tr ochlea with minimal subchondral marrow edema. 3. Mild to moderate arthrosis of the medial compartment with grade 2/3 partial thickness chondral l oss. 4. Lmjbywvw-[id number]-adwge joint effusion with synovitis. Small 4 mm osteochondral body within the poplit eus tendon sheath. 5. Mild mucoid degeneration of the anterior and posterior cruciate ligaments. 6. Mild to moderate tendinosis of the medial head gastrocnemius tendon at its origin. .Becky Wood MD, MD Date Time Electronically viewed and signed by .Becky Wood MD, on 09/09/2016 16:20 .T/
--- NOTE | 2016-09-09 18:03 | RADRPT ---
PROCEDURE: Right knee radiographs. CLINICAL INDICATION: Right knee pain. TECHNIQUE: Two views. Frontal and lateral. COMPARISON: No prior studies are available for comparison. FINDINGS: There is no fracture or dislocation. Vascular calcifications are present consistent with atherosclerosis. There is diffuse osteopenia. There are degenerative changes with osteophytes arising from all 3 joint compartment margins. There is patellofemoral joint compartment narrowing. There is no lytic or blastic lesion. There is no joint effusion. IMPRESSION: 1. Atherosclerosis. 2. Diffuse osteopenia. 3. Moderate degenerative change. 4. Otherwise unremarkable images of the right knee. RPTAT: QQ .Donovan Sinha MD, MD Date Time Electronically viewed and signed by .Donovan Sinha MD, on 09/09/2016 18:03 .R/
[2016-09-09 20:46] VITALS: BP 182/78; RESP 18
[2016-09-09] MEDS: ATORVASTATIN 80 MG TAB PO SCH (20:51)
[2016-09-09] MEDS: hydrALAzine 20 MG INJ IV PRN (20:51)
[2016-09-10] VITALS: BP 136/73; PULSE 77; RESP 18
[2016-09-10] MEDS: SOD CHLORIDE 0.45% 1,000 ML IV SCH (01:30)
[2016-09-10] MEDS: ACCUCHECK 2 AM XX SCH (02:52)
[2016-09-10 05:42] LABS: ADD SCAN DIFF NO
[2016-09-10 05:44] LABS: BASOPHILS % 0.3 % (0.0-2.0); EOSINOPHILS # 0.1 10^3/ul (0.0-0.5); EOSINOPHILS % 0.7 % (0.0-7.0); HEMATOCRIT 35.1 % (37.0-47.0); HEMOGLOBIN 11.6 g/dl (12.0-16.0); LYMPHOCYTES # 2.4 10^3/ul (0.8-2.9); LYMPHOCYTES % 27.4 % (15.0-51.0); MEAN CORPUSCULAR HEMOGLOBIN 28.2 pg (29.0-33.0); MEAN CORPUSCULAR VOLUME 85.2 fl (82.0-101.0); MEAN PLATELET VOLUME 9.5 fl (7.4-10.4); MONOCYTE # 0.9 10^3/ul (0.3-0.9); NEUTROPHIL # 5.3 10^3/ul (1.6-7.5); NEUTROPHILS % 61.1 % (39.0-77.0); PLATELET COUNT 296 10^3/UL (140-415); RED BLOOD COUNT 4.12 10^6/ul (4.20-5.40); RED CELL DISTRIBUTION WIDTH 13.3 % (11.5-14.5); WHITE BLOOD COUNT 8.7 10^3/ul (4.8-10.8)
[2016-09-10 06:27] LABS: POTASSIUM 3.5 mmol/L (3.5-5.1)
[2016-09-10 06:29] LABS: CREATININE 0.87 mg/dl (0.44-1.00)
[2016-09-10 06:30] LABS: CALCIUM 8.9 mg/dl (8.4-10.2)
[2016-09-10 06:39] LABS: ADD UMIC YES; URINE BILIRUBIN (Dip) NEGATIVE (NEGATIVE); URINE BLOOD (Dip) NEGATIVE (NEGATIVE); URINE COLOR LT. YELLOW (YELLOW); URINE GLUCOSE (Dip) NEGATIVE (NEGATIVE); URINE KETONES (Dip) NEGATIVE (NEGATIVE); URINE LEUKOCYTE ESTERASE (Dip) NEGATIVE (NEGATIVE); URINE NITRITE (Dip) POSITIVE (NEGATIVE); URINE TOTAL PROTEIN (Dip) NEGATIVE (NEGATIVE); URINE UROBILINOGEN (Dip) 0.2 E.U./dL (0.1-1.0)
[2016-09-10 07:27] LABS: BACTERIA,URINE MODERATE; URINE RBCS NONE SEEN /HPF (0)
[2016-09-10 07:47] VITALS: BP 175/79; RESP 16
[2016-09-10] MEDS: Insulin NOVOLOG SS MILD Algorithm (SS with meals and bedtime) SC SCH ×4 (08:27→21:00)
[2016-09-10] MEDS: INSULIN ASPART [NOVOLOG] 3 ML PEN SC SCH ×3 (08:28→17:28)
[2016-09-10] MEDS: CLOPIDOGREL 75 MG TAB PO SCH (08:45)
[2016-09-10] MEDS: ISOSORBIDE DINITRATE 10 MG TAB PO SCH (08:45)
[2016-09-10] MEDS: FAMOTIDINE 20 MG TAB PO SCH (08:45)
[2016-09-10] MEDS: OLOPATADINE 0.1% 5 ML OPH BOTH EYES SCH ×2 (08:45→21:19)
[2016-09-10] MEDS: ASPIRIN (EC) 81 MG TAB PO SCH (08:45)
[2016-09-10] MEDS: FISH OIL 1,000 MG CAP PO SCH ×2 (08:46→21:20)
[2016-09-10] MEDS: GABAPENTIN 100 MG CAP PO SCH ×2 (08:46→21:20)
[2016-09-10] MEDS: METHIMAZOLE 5 MG TAB PO SCH (08:46)
[2016-09-10] MEDS: DOCUSATE SODIUM 100 MG CAP PO SCH (08:46)
[2016-09-10] MEDS: SOLIFENACIN 5 MG TAB PO SCH (08:46)
[2016-09-10] MEDS: METOPROLOL (XL) 50 MG TAB PO SCH (08:46)
[2016-09-10] MEDS: CYCLOSPORINE 0.05% OPH DROPERETTE BOTH EYES SCH (08:47)
[2016-09-10] MEDS: ACYCLOVIR 400 MG TAB PO SCH ×4 (08:56→18:50)
[2016-09-10] MEDS: TRIAMCINOLONE ACET 0.5% 15 GM CR TOP SCH (09:00)
[2016-09-10] MEDS: INSULIN GLARGINE [LANtus] 3 ML PEN SC SCH (09:11)
[2016-09-10] MEDS: HEPARIN 5,000 UNIT/0.5 ML VIAL SC SCH ×2 (09:14→21:18)
--- NOTE | 2016-09-10 11:30 | PN ---
Date/Time of Note Date/Time of Note DATE: 09/10/16 TIME: 11:21 Assessment/Plan VTE Prophylaxis VTE Prophylaxis Intervention: SCD's Lines/Catheters IV Catheter Type (from Nrsg): Peripheral IV Urinary Cath still in place: No Assessment/Plan Assessment/Plan 1. Intractable nausea, vomiting, moderate to severe dehydration, intractable pain due to shingles on IV Fluids 2. Right knee cellultiis with Intractable right knee pain, pt can not walk due to severe pain 2. Essential hypertension. Continue Imdur and Toprol as well. 3. History of shingles. Continue acyclovir at current dose. 4. High cholesterol. Continue Lipitor. 5. Recent TIA. Again, continue aspirin and Plavix for now. 6. Gastrointestinal prophylaxis - Pepcid. 7. Deep venous thrombosis prophylaxis. The patient is on aspirin and Plavix - SCDs. 8. Type 2 diabetes. A1c = 8.7 - Continue insulin sliding scale aspart and Lantus Plan: S/p ID consult, pt has a foul smellign urine, urine cx no growth to date IV abx as per ID Right knee cellultiis with Intractable right knee pain, pt can not walk due to severe pain - MRI showed severe OA with tear of ligament causing pain and difficulty in ambulation, CRP elevated 3.9, Uric acid, Requested to see pt for right knee pain Ibuprofen prn pain, fever Pain control SCD for DVT prophylaxis Subjective 24 Hr Interval Summary Free Text/Dictation still c/o right knee pain,BP stable, MRI showed Sever OA with ligament tear Exam/Review of Systems Vital Signs Vitals Vital Signs Date Time Temp Pulse Resp B/P Pulse Ox O2 Delivery O2 Flow Rate FiO2 09/10/16 07:47 98.6 87 16 175/79 96 09/10/16 00:00 Room Air 09/09/16 02:13 21 09/07/16 20:00 2.0 Intake and Output 09/09/16 09/09/16 09/10/16 15:00 23:00 07:00 Intake Total 200 ml 840 ml 1500 ml Output Total 0 ml Balance 200 ml 840 ml 1500 ml Exam GENERAL: mild distress due to pain HEENT: Pupils equal, round, react to light, extraocular muscles intact. NECK: Supple, no thyromegaly. LUNGS: Clear to auscultation bilaterally. CARDIOVASCULAR: S1, S2 heard. No rubs or gallops. ABDOMEN: Soft, nontender, nondistended. Normal bowel sounds. No rebound or guarding. MUSCULOSKELETAL: no LE edema, Right Knee tender to palpation, warm to touch, pt with excruciating pain NEUROLOGIC: No focal deficits. Results Result Diagram: 09/10/16 0515 09/10/16 0515 Results 24 hrs Laboratory Tests Test 09/09/16 12:08 09/09/16 17:32 09/09/16 20:47 09/10/16 01:30 Bedside Glucose 213 104 246 H Urine Color LT. YELLOW Urine Clarity CLEAR Urine pH 5.5 Urine Specific [place] 1.010 Urine Ketones NEGATIVE Urine Nitrite POSITIVE H Urine Bilirubin NEGATIVE Urine Urobilinogen 0.2 E.U./dL Urine Leukocyte Esterase NEGATIVE Urine Microscopic RBC NONE SEEN Urine Microscopic WBC NONE SEEN Urine Bacteria MODERATE Urine Hemoglobin NEGATIVE Urine Glucose NEGATIVE Urine Total Protein NEGATIVE Test 09/10/16 02:49 09/10/16 05:15 09/10/16 07:53 09/10/16 09:06 Bedside Glucose 186 154 170 White Blood Count 8.7 Red Blood Count 4.12 L Hemoglobin 11.6 L Hematocrit 35.1 L Mean Corpuscular Volume 85.2 Mean Corpuscular Hemoglobin 28.2 L Mean Corpuscular Hemoglobin Concent 33.0 Red Cell Distribution Width 13.3 Platelet Count 296 Mean Platelet Volume 9.5 Neutrophils % 61.1 Lymphocytes % 27.4 Monocytes % 10.0 Eosinophils % 0.7 Basophils % 0.3 Nucleated Red Blood Cells % 0.0 Neutrophils # 5.3 Lymphocytes # 2.4 Monocytes # 0.9 Eosinophils # 0.1 Basophils # 0.0 Nucleated Red Blood Cells # 0.0 Sodium Level 141 Potassium Level 3.5 Chloride Level 106 Carbon Dioxide Level 21 Anion Gap 18 H Blood Urea Nitrogen 15 Creatinine 0.87 Glucose Level 163 Calcium Level 8.9 Medications Medications Current Medications Ondansetron HCl (Zofran Inj) 4 mg Q6H PRN IV NAUSEA AND/OR VOMITING; Start at 17:00 Acetaminophen (Tylenol Tab) 650 mg Q6H PRN PO PAIN LEVEL 1-3 OR FEVER; Start at 17:00 Acetaminophen/ Hydrocodone Bitart ([place] (5/325)) 1 tab Q6H PRN PO MODERATE PAIN LEVEL 4-6; Start 09/05/16 at 17:00 Morphine Sulfate (morphine) 2 mg Q4H PRN IV SEVERE PAIN LEVEL 7-10; Start 09/05 at 17:00 Docusate Sodium (Colace) 100 mg Q12H PRN PO CONSTIPATION; Start 09/05/16 at 17: 00 Magnesium Hydroxide (Milk Of Mag) 30 ml DAILY PRN PO CONSTIPATION; Start at 17:00 Sodium Biphosphate/ Sodium Phosphate (Fleet Enema) 133 ml DAILY PRN [place] CONSTIPATION; Start 09/05/16 at 17:00 Heparin Sodium (Porcine) 5000 unit 5,000 unit Q12 SC Last administered on 09:14; Admin Dose 5,000 UNIT; Start 09/05/16 at 21:00 Sodium Chloride (1/2 NS) 1,000 ml @ 75 mls/hr [id number] IV Last administered on 09/10/16 01:30; Admin Dose 75 MLS/HR; Start 09/05/16 at 16:57 Lorazepam (Ativan) 0.5 mg Q6H PRN IV ANXIETY; Start 09/05/16 at 17:00 Hydralazine HCl (Apresoline) 10 mg Q6H PRN IV ELEVATED BLOOD PRESSURE Last administered on 09/09/16 20:51; Admin Dose 10 MG; Start 09/05/16 at 17:00 Nitroglycerin (Nitroglycerin (Sl Tab) 0.4 Mg) 1 tab Q5M PRN SL ANGINA; Start at 17:00 Aspirin (Halfprin) 81 mg DAILY PO Last administered on 09/10/16 08:45; Admin Dose 81 MG; Start 09/06/16 at 09:00 Clopidogrel Bisulfate (plaVIX) 75 mg DAILY PO Last administered on 09/10/16 08: 45; Admin Dose 75 MG; Start 09/06/16 at 09:00 Cyclosporine (Restasis) 1 drop Q12 BOTH EYES Last administered on 09/10/16 08: 47; Admin Dose 1 DROP; Start 09/05/16 at 21:00 Docusate Sodium (Colace) 100 mg DAILY PO Last administered on 09/10/16 08:46; Admin Dose 100 MG; Start 09/06/16 at 09:00 Ergocalciferol (Drisdol) 50,000 unit Q7D PO Last administered on 09/07/16 08:29 ; Admin Dose 50,000 UNIT; Start 09/07/16 at 09:00 Famotidine (Pepcid) 40 mg DAILY PO Last administered on 09/10/16 08:45; Admin Dose 40 MG; Start 09/06/16 at 09:00 Gabapentin (Neurontin) 100 mg BID PO Last administered on 09/10/16 08:46; Admin Dose 100 MG; Start 09/05/16 at 21:00 Insulin Glargine (Lantus) 61 unit DAILY SC Last administered on 09/10/16 09:11 ; Admin Dose 61 UNIT; Start 09/06/16 at 09:00 Isosorbide Dinitrate (Isordil) 30 mg DAILY PO Last administered on 09/10/16 08: 45; Admin Dose 30 MG; Start 09/06/16 at 09:00 Methimazole (Tapazole) 5 mg DAILY PO Last administered on 09/10/16 08:46; Admin Dose 5 MG; Start 09/06/16 at 09:00 Metoprolol Succinate (Toprol Xl) 50 mg DAILY PO Last administered on 09/10/16 08:46; Admin Dose 50 MG; Start 09/06/16 at 09:00 Solifenacin (Vesicare) 5 mg DAILY PO Last administered on 09/10/16 08:46; Admin Dose 5 MG; Start 09/06/16 at 09:00 Triamcinolone Acetonide (Kenalog 0.5% Cr) 1 applic DAILY TOP Last administered on 09/09/16 08:34; Admin Dose 1 APPLIC; Start 09/06/16 at 09:00 Fish Oil (Fish Oil) 1,000 mg BID PO Last administered on 09/10/16 08:46; Admin Dose 1,000 MG; Start 09/08/16 at 09:00 Olopatadine HCl (Patanol 0.1% Oph) 1 drop BID BOTH EYES Last administered on 08:45; Admin Dose 1 DROP; Start 09/08/16 at 09:00 Atorvastatin Calcium (Lipitor) 80 mg DAILY@21 PO Last administered on 09/09/16 20:51; Admin Dose 80 MG; Start 09/05/16 at 21:00 Miscellaneous Information 1 ea NOTE XX ; Start 09/05/16 at 17:30 Glucose (Glutose) 15 gm Q15M PRN PO DECREASED GLUCOSE; Start 09/05/16 at 17:30 Glucose (Glutose) 22.5 gm Q15M PRN PO DECREASED GLUCOSE; Start 09/05/16 at 17: 30 Dextrose (D50w Syringe) 25 ml Q15M PRN IV DECREASED GLUCOSE; Start 09/05/16 at 17:30 Dextrose (D50w Syringe) 50 ml Q15M PRN IV DECREASED GLUCOSE; Start 09/05/16 at 17:30 Glucagon (Glucagen) 1 mg Q15M PRN IM DECREASED GLUCOSE; Start 09/05/16 at 17:30 Glucose (Glutose) 15 gm Q15M PRN BUCCAL DECREASED GLUCOSE; Start 09/05/16 at 17 :30 Diagnostic Test (Pha) (Accu-Chek) 1 ea 02 XX Last administered on 09/10/16t 02: 52; Admin Dose 1 EA; Start 09/06/16 at 12:30 Ibuprofen (Motrin) 400 mg TID PRN PO MODERATE PAIN LEVEL 4-6; Start 09/09/16 at 10:00 HUMBERTO LING MD Sep 10, 2016 11:30
[2016-09-10 19:00] VITALS: BP 158/67; RESP 20
[2016-09-10] MEDS: ATORVASTATIN 80 MG TAB PO SCH (21:21)
[2016-09-11] MEDS: CYCLOSPORINE 0.05% OPH DROPERETTE BOTH EYES SCH ×3 (01:31→22:03)
[2016-09-11] MEDS: ACCUCHECK 2 AM XX SCH (02:00)
[2016-09-11 07:42] VITALS: BP 178/79; RESP 16
[2016-09-11 08:10] VITALS: BP 154/97; PULSE 92
[2016-09-11] MEDS: SOLIFENACIN 5 MG TAB PO SCH (08:12)
[2016-09-11] MEDS: METHIMAZOLE 5 MG TAB PO SCH (08:13)
[2016-09-11] MEDS: DOCUSATE SODIUM 100 MG CAP PO SCH (08:13)
[2016-09-11] MEDS: CLOPIDOGREL 75 MG TAB PO SCH (08:13)
[2016-09-11] MEDS: ISOSORBIDE DINITRATE 10 MG TAB PO SCH (08:13)
[2016-09-11] MEDS: FAMOTIDINE 20 MG TAB PO SCH (08:13)
[2016-09-11] MEDS: FISH OIL 1,000 MG CAP PO SCH ×2 (08:13→20:18)
[2016-09-11] MEDS: ASPIRIN (EC) 81 MG TAB PO SCH (08:13)
[2016-09-11] MEDS: GABAPENTIN 100 MG CAP PO SCH ×2 (08:13→20:18)
[2016-09-11] MEDS: METOPROLOL (XL) 50 MG TAB PO SCH (08:14)
[2016-09-11] MEDS: OLOPATADINE 0.1% 5 ML OPH BOTH EYES SCH ×2 (08:16→20:18)
[2016-09-11] MEDS: Insulin NOVOLOG SS MILD Algorithm (SS with meals and bedtime) SC SCH ×4 (08:31→20:33)
[2016-09-11] MEDS: INSULIN GLARGINE [LANtus] 3 ML PEN SC SCH (08:31)
[2016-09-11] MEDS: INSULIN ASPART [NOVOLOG] 3 ML PEN SC SCH ×3 (08:32→18:00)
[2016-09-11] MEDS: TRIAMCINOLONE ACET 0.5% 15 GM CR TOP SCH (09:41)
[2016-09-11] MEDS: HEPARIN 5,000 UNIT/0.5 ML VIAL SC SCH ×2 (09:48→20:28)
[2016-09-11] MEDS ORDERED: BUPIVACAINE 0.5%/EPI (SDV) 30 ML INJ INJ ONE (16:00)
[2016-09-11] MEDS ORDERED: BETAMET NA PHOS/AC(6 MG/ML) 5ML INJ INJ ONE (16:00)
--- NOTE | 2016-09-11 19:46 | PN ---
Date/Time of Note Date/Time of Note DATE: 09/11/16 TIME: 19:44 Assessment/Plan VTE Prophylaxis VTE Prophylaxis Intervention: SCD's Lines/Catheters IV Catheter Type (from Nrsg): [place] Urinary Cath still in place: No Assessment/Plan Assessment/Plan 1. Intractable nausea, vomiting, moderate to severe dehydration, intractable pain due to shingles on IV Fluids 2. Right knee cellultiis with Intractable right knee pain, pt can not walk due to severe pain 2. Essential hypertension. Continue Imdur and Toprol as well. 3. History of shingles. Continue acyclovir at current dose. 4. High cholesterol. Continue Lipitor. 5. Recent TIA. Again, continue aspirin and Plavix for now. 6. Gastrointestinal prophylaxis - Pepcid. 7. Deep venous thrombosis prophylaxis. The patient is on aspirin and Plavix - SCDs. 8. Type 2 diabetes. A1c = 8.7 - Continue insulin sliding scale aspart and Lantus Plan: S/p ID consult, pt has a foul smellign urine, urine cx no growth to date IV abx as per ID Right knee cellultiis with Intractable right knee pain, pt can not walk due to severe pain - MRI showed severe OA with tear of ligament causing pain and difficulty in ambulation, CRP elevated 3.9, Uric acid, Requested to see pt for right knee pain Ibuprofen prn pain, fever Pain control SCD for DVT prophylaxis SNF placement due to knee pain and inability to walk due to pain Subjective 24 Hr Interval Summary Free Text/Dictation still not able to follow, BP stable,afebrile Exam/Review of Systems Vital Signs Vitals Vital Signs Date Time Temp Pulse Resp B/P Pulse Ox O2 Delivery O2 Flow Rate FiO2 09/11/16 17:45 99.2 09/11/16 08:10 92 154/97 09/11/16 07:42 16 96 09/10/16 17:10 21 09/10/16 00:00 Room Air 09/07/16 20:00 2.0 Intake and Output 09/10/16 09/10/16 09/11/16 15:00 23:00 07:00 Intake Total 600 ml 240 ml Output Total 300 ml Balance 600 ml -60 ml Results Result Diagram: 09/10/16 0515 09/10/16 0515 Results 24 hrs Laboratory Tests Test 09/10/16 21:18 09/11/16 07:54 09/11/16 12:15 09/11/16 17:43 Bedside Glucose 94 161 249 H 161 Medications Medications Current Medications Ondansetron HCl (Zofran Inj) 4 mg Q6H PRN IV NAUSEA AND/OR VOMITING; Start at 17:00 Acetaminophen (Tylenol Tab) 650 mg Q6H PRN PO PAIN LEVEL 1-3 OR FEVER Last administered on 09/11/16 18:01; Admin Dose 650 MG; Start 09/05/16 at 17:00 Acetaminophen/ Hydrocodone Bitart ([place] (5/325)) 1 tab Q6H PRN PO MODERATE PAIN LEVEL 4-6; Start 09/05/16 at 17:00 Morphine Sulfate (morphine) 2 mg Q4H PRN IV SEVERE PAIN LEVEL 7-10; Start 09/05 at 17:00 Docusate Sodium (Colace) 100 mg Q12H PRN PO CONSTIPATION; Start 09/05/16 at 17: 00 Magnesium Hydroxide (Milk Of Mag) 30 ml DAILY PRN PO CONSTIPATION; Start at 17:00 Sodium Biphosphate/ Sodium Phosphate (Fleet Enema) 133 ml DAILY PRN [place] CONSTIPATION; Start 09/05/16 at 17:00 Heparin Sodium (Porcine) (Heparin (5000 Units/0.5 ml)) 5,000 unit Q12 SC Last administered on 09/11/16 09:48; Admin Dose 5,000 UNIT; Start 09/05/16 at 21:00 Lorazepam (Ativan) 0.5 mg Q6H PRN IV ANXIETY; Start 09/05/16 at 17:00 Hydralazine HCl (Apresoline) 10 mg Q6H PRN IV ELEVATED BLOOD PRESSURE Last administered on 09/09/16 20:51; Admin Dose 10 MG; Start 09/05/16 at 17:00 Nitroglycerin (Nitroglycerin (Sl Tab) 0.4 Mg) 1 tab Q5M PRN SL ANGINA; Start at 17:00 Aspirin (Halfprin) 81 mg DAILY PO Last administered on 09/11/16 08:13; Admin Dose 81 MG; Start 09/06/16 at 09:00 Clopidogrel Bisulfate (plaVIX) 75 mg DAILY PO Last administered on 09/11/16 08: 13; Admin Dose 75 MG; Start 09/06/16 at 09:00 Cyclosporine (Restasis) 1 drop Q12 BOTH EYES Last administered on 09/11/16 08: 16; Admin Dose 1 DROP; Start 09/05/16 at 21:00 Docusate Sodium (Colace) 100 mg DAILY PO Last administered on 09/11/16 08:13; Admin Dose 100 MG; Start 09/06/16 at 09:00 Ergocalciferol (Drisdol) 50,000 unit Q7D PO Last administered on 09/07/16 08:29 ; Admin Dose 50,000 UNIT; Start 09/07/16 at 09:00 Famotidine (Pepcid) 40 mg DAILY PO Last administered on 09/11/16 08:13; Admin Dose 40 MG; Start 09/06/16 at 09:00 Gabapentin (Neurontin) 100 mg BID PO Last administered on 09/11/16 08:13; Admin Dose 100 MG; Start 09/05/16 at 21:00 Insulin Glargine (Lantus) 61 unit DAILY SC Last administered on 09/11/16 08:31 ; Admin Dose 61 UNIT; Start 09/06/16 at 09:00 Isosorbide Dinitrate (Isordil) 30 mg DAILY PO Last administered on 09/11/16 08: 13; Admin Dose 30 MG; Start 09/06/16 at 09:00 Methimazole (Tapazole) 5 mg DAILY PO Last administered on 09/11/16 08:13; Admin Dose 5 MG; Start 09/06/16 at 09:00 Metoprolol Succinate (Toprol Xl) 50 mg DAILY PO Last administered on 09/11/16 08:14; Admin Dose 50 MG; Start 09/06/16 at 09:00 Solifenacin (Vesicare) 5 mg DAILY PO Last administered on 09/11/16 08:12; Admin Dose 5 MG; Start 09/06/16 at 09:00 Triamcinolone Acetonide (Kenalog 0.5% Cr) 1 applic DAILY TOP Last administered on 09/11/16 09:41; Admin Dose 1 APPLIC; Start 09/06/16 at 09:00 Fish Oil (Fish Oil) 1,000 mg BID PO Last administered on 09/11/16 08:13; Admin Dose 1,000 MG; Start 09/08/16 at 09:00 Olopatadine HCl (Patanol 0.1% Oph) 1 drop BID BOTH EYES Last administered on 08:16; Admin Dose 1 DROP; Start 09/08/16 at 09:00 Atorvastatin Calcium (Lipitor) 80 mg DAILY@21 PO Last administered on 09/10/16 21:21; Admin Dose 80 MG; Start 09/05/16 at 21:00 Miscellaneous Information 1 ea NOTE XX ; Start 09/05/16 at 17:30 Glucose (Glutose) 15 gm Q15M PRN PO DECREASED GLUCOSE; Start 09/05/16 at 17:30 Glucose (Glutose) 22.5 gm Q15M PRN PO DECREASED GLUCOSE; Start 09/05/16 at 17: 30 Dextrose (D50w Syringe) 25 ml Q15M PRN IV DECREASED GLUCOSE; Start 09/05/16 at 17:30 Dextrose (D50w Syringe) 50 ml Q15M PRN IV DECREASED GLUCOSE; Start 09/05/16 at 17:30 Glucagon (Glucagen) 1 mg Q15M PRN IM DECREASED GLUCOSE; Start 09/05/16 at 17:30 Glucose (Glutose) 15 gm Q15M PRN BUCCAL DECREASED GLUCOSE; Start 09/05/16 at 17 :30 Diagnostic Test (Pha) (Accu-Chek) 1 ea 02 XX Last administered on 09/10/16 02: 52; Admin Dose 1 EA; Start 09/06/16 at 12:30 Ibuprofen (Motrin) 400 mg TID PRN PO MODERATE PAIN LEVEL 4-6; Start 09/09/16 at 10:00 HUMBERTO LING MD Sep 11, 2016 19:46
[2016-09-11 20:08] VITALS: BP 157/70; RESP 18
[2016-09-11] MEDS: ATORVASTATIN 80 MG TAB PO SCH (20:18)
--- NOTE | 2016-09-11 21:28 | CONS ---
DATE OF ADMISSION: 09/05/2016 DATE OF CONSULTATION: 09/11/2016 TYPE OF CONSULTATION: Orthopedic Surgery. HISTORY OF PRESENT ILLNESS: The patient is a 76-year-old female, who was admitted on 09/05/2016, wh en she came to the emergency room complaining of nausea and vomiting along with difficulty walking. On inquiring, her main reason for her difficulty in ambulation is pain involving both her knees. T he pain has been causing problems for at least several years; however, she did not have any major tr eatment. She is known to have hypertension, hypercholesterolemia, recent history of TIA, and shingles. She a lso had multiple surgeries including appendectomy, cholecystectomy, and hysterectomy in the past. PHYSICAL EXAMINATION: GENERAL: My examination revealed a 76-year-old female, who was not in any acute distress. EXTREMITIES: There was an obvious effusion involving both knees, worse on the right side. There wa s painful limit of motion with crepitance. There was tenderness around the A joint line. There wer e no gross instabilities. There were no signs of acute pyogenic process or inflammatory process. X-rays and MRI scan was available only on the right knee, and it revealed a presence of advanced deg enerative osteoarthritis, along with degenerative tears of meniscus. Judging and comparing physical findings on both knees, it can be presumed that she is also having similar findings involving the l eft knee. DIAGNOSTIC IMPRESSION: Degenerative osteoarthritis of both knees, moderately advanced. RECOMMENDATIONS FOR TREATMENT: Trial of steroid injection into both knees, and this was done immedi ately following my evaluation. Further treatment recommendation will be steroid injections at inter vals as needed as an outpatient. Dictated By: NURY VIDALES/JEAN Conf#: [id number] DID#: [id number]
[2016-09-12] MEDS: ACCUCHECK 2 AM XX SCH (02:00)
[2016-09-12] MEDS ORDERED: INSULIN ASPART [NOVOLOG] 3 ML PEN SC ONE ×4 (03:30→21:40)
[2016-09-12 05:40] LABS: ADD SCAN DIFF NO
[2016-09-12 05:51] LABS: BASOPHILS % 0.1 % (0.0-2.0); HEMOGLOBIN 11.6 g/dl (12.0-16.0); LYMPHOCYTES # 0.8 10^3/ul (0.8-2.9); LYMPHOCYTES % 9.4 % (15.0-51.0); MEAN CORPUSCULAR HEMOGLOBIN 28.9 pg (29.0-33.0); MEAN CORPUSCULAR HGB CONC 33.1 g/dl (32.0-37.0); MEAN CORPUSCULAR VOLUME 87.3 fl (82.0-101.0); MEAN PLATELET VOLUME 9.6 fl (7.4-10.4); MONOCYTE # 0.2 10^3/ul (0.3-0.9); MONOCYTES % 2.2 % (0.0-11.0); NEUTROPHIL # 7.2 10^3/ul (1.6-7.5); NEUTROPHILS % 87.7 % (39.0-77.0); PLATELET COUNT 354 10^3/UL (140-415); RED BLOOD COUNT 4.01 10^6/ul (4.20-5.40); RED CELL DISTRIBUTION WIDTH 13.4 % (11.5-14.5); WHITE BLOOD COUNT 8.2 10^3/ul (4.8-10.8)
[2016-09-12 06:27] LABS: POTASSIUM 3.8 mmol/L (3.5-5.1)
[2016-09-12 06:29] LABS: CREATININE 1.07 mg/dl (0.44-1.00)
[2016-09-12 06:30] LABS: CALCIUM 9.6 mg/dl (8.4-10.2)
[2016-09-12 08:10] VITALS: BP 179/81; RESP 22
[2016-09-12] MEDS: Insulin NOVOLOG SS MILD Algorithm (SS with meals and bedtime) SC SCH ×4 (09:31→21:00)
[2016-09-12] MEDS: INSULIN ASPART [NOVOLOG] 3 ML PEN SC SCH ×3 (09:33→18:13)
[2016-09-12] MEDS: HEPARIN 5,000 UNIT/0.5 ML VIAL SC SCH ×2 (09:34→20:24)
[2016-09-12] MEDS: INSULIN GLARGINE [LANtus] 3 ML PEN SC SCH (09:35)
[2016-09-12] MEDS: CYCLOSPORINE 0.05% OPH DROPERETTE BOTH EYES SCH ×2 (09:38→20:13)
[2016-09-12] MEDS: GABAPENTIN 100 MG CAP PO SCH ×2 (09:39→20:14)
[2016-09-12] MEDS: CLOPIDOGREL 75 MG TAB PO SCH (09:39)
[2016-09-12] MEDS: METHIMAZOLE 5 MG TAB PO SCH (09:40)
[2016-09-12] MEDS: FAMOTIDINE 20 MG TAB PO SCH (09:40)
[2016-09-12] MEDS: FISH OIL 1,000 MG CAP PO SCH ×2 (09:41→20:14)
[2016-09-12] MEDS: ASPIRIN (EC) 81 MG TAB PO SCH (09:41)
[2016-09-12] MEDS: METOPROLOL (XL) 50 MG TAB PO SCH (09:41)
[2016-09-12] MEDS: DOCUSATE SODIUM 100 MG CAP PO SCH (09:42)
[2016-09-12] MEDS: ISOSORBIDE DINITRATE 10 MG TAB PO SCH (09:42)
[2016-09-12] MEDS: TRIAMCINOLONE ACET 0.5% 15 GM CR TOP SCH (09:43)
[2016-09-12] MEDS: SOLIFENACIN 5 MG TAB PO SCH (10:12)
[2016-09-12] MEDS: OLOPATADINE 0.1% 5 ML OPH BOTH EYES SCH ×2 (10:13→20:13)
--- NOTE | 2016-09-12 12:36 | PN ---
Date/Time of Note Date/Time of Note DATE: 09/12/16 TIME: 12:31 Assessment/Plan VTE Prophylaxis VTE Prophylaxis Intervention: SCD's Lines/Catheters IV Catheter Type (from Nrsg): [facility] Urinary Cath still in place: No Assessment/Plan Assessment/Plan 1. Intractable nausea, vomiting, moderate to severe dehydration, intractable pain due to shingles on IV Fluids 2. Right knee cellultiis with Intractable right knee pain, pt can not walk due to severe pain 2. Essential hypertension. Continue Imdur and Toprol as well. 3. History of shingles. Continue acyclovir at current dose. 4. High cholesterol. Continue Lipitor. 5. Recent TIA. Again, continue aspirin and Plavix for now. 6. Gastrointestinal prophylaxis - Pepcid. 7. Deep venous thrombosis prophylaxis. The patient is on aspirin and Plavix - SCDs. 8. Type 2 diabetes. A1c = 8.7 - Continue insulin sliding scale aspart and Lantus, Hyperglycemia with BS in 400-500s. - will continue AM dose of lantus, add PM dose of lantus, extra dose of novolog now Plan: s/p cortisone injection - Hyperglycemia with BS in 400-500s. - will continue AM dose of lantus, add PM dose of lantus, extra dose of novolog now IV abx as per ID Right knee cellultiis with Intractable right knee pain, pt can not walk due to severe pain - MRI showed severe OA with tear of ligament causing pain and difficulty in ambulation, CRP elevated 3.9, Uric acid, s/p Ortho consutl by and had a cortisone injection in right knee Ibuprofen prn pain, fever Pain control SCD for DVT prophylaxis SNF placement due to knee pain and inability to walk due to pain Subjective 24 Hr Interval Summary Free Text/Dictation s/p Cortisone injection in right knee , now BS in 400-500s, pt feels ok, Exam/Review of Systems Vital Signs Vitals Vital Signs Date Time Temp Pulse Resp B/P Pulse Ox O2 Delivery O2 Flow Rate FiO2 09/12/16 08:10 97.6 89 22 179/81 95 09/10/16 17:10 21 09/10/16 00:00 Room Air Intake and Output 09/11/16 09/11/16 09/12/16 15:00 23:00 07:00 Intake Total 480 ml 360 ml Balance 480 ml 360 ml Exam GENERAL: mild distress due to pain HEENT: Pupils equal, round, react to light, extraocular muscles intact. NECK: Supple, no thyromegaly. LUNGS: Clear to auscultation bilaterally. CARDIOVASCULAR: S1, S2 heard. No rubs or gallops. ABDOMEN: Soft, nontender, nondistended. Normal bowel sounds. No rebound or guarding. MUSCULOSKELETAL: no LE edema, Right Knee tender to palpation, warm to touch, pt with excruciating pain NEUROLOGIC: No focal deficits. Results Result Diagram: 09/12/16 0510 09/12/1610 Results 24 hrs Laboratory Tests Test 09/11/16 17:43 09/11/16 20:17 09/12/16 02:15 09/12/16 02:32 Bedside Glucose 161 180 563 *H Glucose Level 615 #*H Test 09/12/16 03:12 09/12/16 04:29 09/12/16 05:10 09/12/16 06:12 Bedside Glucose 550 *H 517 *H 461 *H White Blood Count 8.2 Red Blood Count 4.01 L Hemoglobin 11.6 L Hematocrit 35.0 L Mean Corpuscular Volume 87.3 Mean Corpuscular Hemoglobin 28.9 L Mean Corpuscular Hemoglobin Concent 33.1 Red Cell Distribution Width 13.4 Platelet Count 354 Mean Platelet Volume 9.6 Neutrophils % 87.7 H Lymphocytes % 9.4 L Monocytes % 2.2 Eosinophils % 0.0 Basophils % 0.1 Nucleated Red Blood Cells % 0.0 Neutrophils # 7.2 Lymphocytes # 0.8 Monocytes # 0.2 L Eosinophils # 0.0 Basophils # 0.0 Nucleated Red Blood Cells # 0.0 Sodium Level 143 Potassium Level 3.8 Chloride Level 107 Carbon Dioxide Level 20 L Anion Gap 20 H Blood Urea Nitrogen 27 #H Creatinine 1.07 H Glucose Level 582 *H Hemoglobin A1c 8.6 H Calcium Level 9.6 Test 09/12/16 08:07 09/12/16 09:26 09/12/16 11:17 Bedside Glucose 409 *H 431 *H 405 *H Medications Medications Current Medications Ondansetron HCl (Zofran Inj) 4 mg Q6H PRN IV NAUSEA AND/OR VOMITING; Start at 17:00 Acetaminophen (Tylenol Tab) 650 mg Q6H PRN PO PAIN LEVEL 1-3 OR FEVER Last administered on 09/11/16 18:01; Admin Dose 650 MG; Start 09/05/16 at 17:00 Acetaminophen/ Hydrocodone Bitart ([place] (5/325)) 1 tab Q6H PRN PO MODERATE PAIN LEVEL 4-6; Start 09/05/16 at 17:00 Morphine Sulfate (morphine) 2 mg Q4H PRN IV SEVERE PAIN LEVEL 7-10; Start 09/05 at 17:00 Docusate Sodium (Colace) 100 mg Q12H PRN PO CONSTIPATION; Start 09/05/16 at 17: 00 Magnesium Hydroxide (Milk Of Mag) 30 ml DAILY PRN PO CONSTIPATION; Start at 17:00 Sodium Biphosphate/ Sodium Phosphate (Fleet Enema) 133 ml DAILY PRN [place] CONSTIPATION; Start 09/05/16 at 17:00 Heparin Sodium (Porcine) (Heparin (5000 Units/0.5 ml)) 5,000 unit Q12 SC Last administered on 09/12/16 09:34; Admin Dose 5,000 UNIT; Start 09/05/16 at 21:00 Lorazepam (Ativan) 0.5 mg Q6H PRN IV ANXIETY; Start 09/05/16 at 17:00 Hydralazine HCl (Apresoline) 10 mg Q6H PRN IV ELEVATED BLOOD PRESSURE Last administered on 09/09/16 20:51; Admin Dose 10 MG; Start 09/05/16 at 17:00 Nitroglycerin (Nitroglycerin (Sl Tab) 0.4 Mg) 1 tab Q5M PRN SL ANGINA; Start at 17:00 Aspirin (Halfprin) 81 mg DAILY PO Last administered on 09/12/16 09:41; Admin Dose 81 MG; Start 09/06/16 at 09:00 Clopidogrel Bisulfate (plaVIX) 75 mg DAILY PO Last administered on 09/12/16 09: 39; Admin Dose 75 MG; Start 09/06/16 at 09:00 Cyclosporine (Restasis) 1 drop Q12 BOTH EYES Last administered on 09/12/16 09: 38; Admin Dose 1 DROP; Start 09/05/16 at 21:00 Docusate Sodium (Colace) 100 mg DAILY PO Last administered on 09/12/16 09:42; Admin Dose 100 MG; Start 09/06/16 at 09:00 Ergocalciferol (Drisdol) 50,000 unit Q7D PO Last administered on 09/07/16 08:29 ; Admin Dose 50,000 UNIT; Start 09/07/16 at 09:00 Famotidine (Pepcid) 40 mg DAILY PO Last administered on 09/12/16 09:40; Admin Dose 40 MG; Start 09/06/16 at 09:00 Gabapentin (Neurontin) 100 mg BID PO Last administered on 09/12/16 09:39; Admin Dose 100 MG; Start 09/05/16 at 21:00 Insulin Glargine (Lantus) 61 unit DAILY SC Last administered on 09/12/16 09:35 ; Admin Dose 61 UNIT; Start 09/06/16 at 09:00 Isosorbide Dinitrate (Isordil) 30 mg DAILY PO Last administered on 09/12/16 09: 42; Admin Dose 30 MG; Start 09/06/16 at 09:00 Methimazole (Tapazole) 5 mg DAILY PO Last administered on 09/12/16 09:40; Admin Dose 5 MG; Start 09/06/16 at 09:00 Metoprolol Succinate (Toprol Xl) 50 mg DAILY PO Last administered on 09/12/16 09:41; Admin Dose 50 MG; Start 09/06/16 at 09:00 Solifenacin (Vesicare) 5 mg DAILY PO Last administered on 09/12/16 10:12; Admin Dose 5 MG; Start 09/06/16 at 09:00 Triamcinolone Acetonide (Kenalog 0.5% Cr) 1 applic DAILY TOP Last administered on 09/12/16 09:43; Admin Dose 1 APPLIC; Start 09/06/16 at 09:00 Fish Oil (Fish Oil) 1,000 mg BID PO Last administered on 09/12/16 09:41; Admin Dose 1,000 MG; Start 09/08/16 at 09:00 Olopatadine HCl (Patanol 0.1% Oph) 1 drop BID BOTH EYES Last administered on 10:13; Admin Dose 1 DROP; Start 09/08/16 at 09:00 Atorvastatin Calcium (Lipitor) 80 mg DAILY@21 PO Last administered on 09/11/16 20:18; Admin Dose 80 MG; Start 09/05/16 at 21:00 Miscellaneous Information 1 ea NOTE XX ; Start 09/05/16 at 17:30 Glucose (Glutose) 15 gm Q15M PRN PO DECREASED GLUCOSE; Start 09/05/16 at 17:30 Glucose (Glutose) 22.5 gm Q15M PRN PO DECREASED GLUCOSE; Start 09/05/16 at 17: 30 Dextrose (D50w Syringe) 25 ml Q15M PRN IV DECREASED GLUCOSE; Start 09/05/16 at 17:30 Dextrose (D50w Syringe) 50 ml Q15M PRN IV DECREASED GLUCOSE; Start 09/05/16 at 17:30 Glucagon (Glucagen) 1 mg Q15M PRN IM DECREASED GLUCOSE; Start 09/05/16 at 17:30 Glucose (Glutose) 15 gm Q15M PRN BUCCAL DECREASED GLUCOSE; Start 09/05/16 at 17 :30 Diagnostic Test (Pha) (Accu-Chek) 1 ea 02 XX Last administered on 09/10/16 02: 52; Admin Dose 1 EA; Start 09/06/16 at 12:30 Ibuprofen (Motrin) 400 mg TID PRN PO MODERATE PAIN LEVEL 4-6; Start 09/09/16 at 10:00 Insulin Glargine (Lantus) 5 unit DAILY@20 SC ; Start 09/12/16 at 20:00 HUMBERTO LING MD Sep 12, 2016 12:36
--- NOTE | 2016-09-12 17:10 | PN ---
DATE: SUBJECTIVE: Less swelling and less tenderness involving both knees following the steroid injection. OBJECTIVE: Thorough range of motion with less pain in both knees. PLAN: Further ortho followup as an outpatient. Dictated By: NURY VIDALES/JEAN Conf#: [id number] DID#: [id number]
[2016-09-12] MEDS ORDERED: INSULIN REGULAR, HUMAN 100 UNIT/1 ML 3ML VIAL IV ONE (19:00)
[2016-09-12 19:34] VITALS: BP 151/67; RESP 20
[2016-09-12] MEDS ORDERED: INSULIN GLARGINE [LANtus] 3 ML PEN SC SCH ×2 (20:00→21:00)
[2016-09-12] MEDS: ATORVASTATIN 80 MG TAB PO SCH (20:14)
[2016-09-13] VITALS (24 sets, daily range): BP systolic 141–193; BP diastolic 61–126; PULSE 86–114; RESP 20–31
[2016-09-13] MEDS: ACCUCHECK 2 AM XX SCH (02:00)
[2016-09-13] MEDS: Insulin NOVOLOG SS MILD Algorithm (SS with meals and bedtime) SC SCH ×2 (08:28→12:35)
[2016-09-13] MEDS: INSULIN ASPART [NOVOLOG] 3 ML PEN SC SCH ×2 (08:29→12:36)
[2016-09-13] MEDS: INSULIN GLARGINE [LANtus] 3 ML PEN SC SCH (08:29)
[2016-09-13] MEDS: HEPARIN 5,000 UNIT/0.5 ML VIAL SC SCH ×2 (08:30→21:21)
[2016-09-13] MEDS: OLOPATADINE 0.1% 5 ML OPH BOTH EYES SCH ×2 (08:35→21:19)
[2016-09-13] MEDS: CYCLOSPORINE 0.05% OPH DROPERETTE BOTH EYES SCH ×2 (08:36→21:19)
[2016-09-13] MEDS: FAMOTIDINE 20 MG TAB PO SCH (08:37)
[2016-09-13] MEDS: ASPIRIN (EC) 81 MG TAB PO SCH (08:38)
[2016-09-13] MEDS: FISH OIL 1,000 MG CAP PO SCH ×2 (08:38→21:19)
[2016-09-13] MEDS: DOCUSATE SODIUM 100 MG CAP PO SCH (08:38)
[2016-09-13] MEDS: ISOSORBIDE DINITRATE 10 MG TAB PO SCH (08:38)
[2016-09-13] MEDS: GABAPENTIN 100 MG CAP PO SCH ×2 (08:39→21:19)
[2016-09-13] MEDS: METOPROLOL (XL) 50 MG TAB PO SCH (08:39)
[2016-09-13] MEDS: SOLIFENACIN 5 MG TAB PO SCH (08:39)
[2016-09-13] MEDS: METHIMAZOLE 5 MG TAB PO SCH (08:39)
[2016-09-13] MEDS: CLOPIDOGREL 75 MG TAB PO SCH (08:39)
[2016-09-13] MEDS: TRIAMCINOLONE ACET 0.5% 15 GM CR TOP SCH (08:40)
--- NOTE | 2016-09-13 08:57 | CONS ---
Date/Time of Note Date/Time of Note DATE: 09/13/16 TIME: 08:50 Consult Date/Type/Reason Admit Date/Time Sep 05, 2016 at 15:41 Initial Consult Date Type of Consultation: internal medicine Subjective Patient comfortable this morning no new events Blood sugar continues to remain extremely elevated Status post steroid injections to her knees Objective Vital Signs Date Time Temp Pulse Resp B/P Pulse Ox O2 Delivery O2 Flow Rate FiO2 09/13/16 08:25 98.2 78 20 150/69 98 09/10/16 17:10 21 09/10/16 00:00 Room Air Intake and Output 09/12/16 09/12/16 09/13/16 15:00 23:00 07:00 Intake Total 920 ml 480 ml Balance 920 ml 480 ml Exam GENERAL: Elderly-appearing lady comfortable in bed in no acute distress VITAL SIGNS: per chart NECK: Supple. No JVD or lymphadenopathy. CARDIAC EXAM: S1, S2. No added sounds or murmurs. CHEST: clear bilaterally, No added sounds, rales or wheezes ABDOMEN: Soft, nontender. No guarding or rebound. EXTREMITIES: No cyanosis, clubbing or edema. NEUROLOGIC: Generalized weakness. Results/Medications Result Diagram: 09/12/16 0510 09/12/16 0510 Results 24 hrs Laboratory Tests Test 09/12/16 09:26 09/12/16 11:17 09/12/16 12:12 09/12/16 14:25 Bedside Glucose 431 *H 405 *H 367 H 385 H Test 09/12/16 18:05 09/12/16 19:31 09/12/16 20:12 09/12/16 21:34 Bedside Glucose 401 *H 411 *H 428 *H 415 *H Test 09/12/16 22:54 09/13/16 02:18 09/13/16 07:50 Bedside Glucose 389 H 326 H 374 H Medications Current Medications Ondansetron HCl (Zofran Inj) 4 mg Q6H PRN IV NAUSEA AND/OR VOMITING; Start at 17:00 Acetaminophen (Tylenol Tab) 650 mg Q6H PRN PO PAIN LEVEL 1-3 OR FEVER Last administered on 09/11/16t 18:01; Admin Dose 650 MG; Start 09/05/16 at 17:00 Acetaminophen/ Hydrocodone Bitart ([place] (5/325)) 1 tab Q6H PRN PO MODERATE PAIN LEVEL 4-6; Start 09/05/16 at 17:00 Morphine Sulfate (morphine) 2 mg Q4H PRN IV SEVERE PAIN LEVEL 7-10; Start 09/05 at 17:00 Docusate Sodium (Colace) 100 mg Q12H PRN PO CONSTIPATION; Start 09/05/16 at 17: 00 Magnesium Hydroxide (Milk Of Mag) 30 ml DAILY PRN PO CONSTIPATION; Start at 17:00 Sodium Biphosphate/ Sodium Phosphate (Fleet Enema) 133 ml DAILY PRN [place] CONSTIPATION; Start 09/05/16 at 17:00 Heparin Sodium (Porcine) (Heparin (5000 Units/0.5 ml)) 5,000 unit Q12 SC Last administered on 09/13/16 08:30; Admin Dose 5,000 UNIT; Start 09/05/16 at 21:00 Lorazepam (Ativan) 0.5 mg Q6H PRN IV ANXIETY; Start 09/05/16 at 17:00 Hydralazine HCl (Apresoline) 10 mg Q6H PRN IV ELEVATED BLOOD PRESSURE Last administered on 09/09/16 20:51; Admin Dose 10 MG; Start 09/05/16 at 17:00 Nitroglycerin (Nitroglycerin (Sl Tab) 0.4 Mg) 1 tab Q5M PRN SL ANGINA; Start at 17:00 Aspirin (Halfprin) 81 mg DAILY PO Last administered on 09/13/16 08:38; Admin Dose 81 MG; Start 09/06/16 at 09:00 Clopidogrel Bisulfate (plaVIX) 75 mg DAILY PO Last administered on 09/13/16 08: 39; Admin Dose 75 MG; Start 09/06/16 at 09:00 Cyclosporine (Restasis) 1 drop Q12 BOTH EYES Last administered on 09/13/16 08: 36; Admin Dose 1 DROP; Start 09/05/16 at 21:00 Docusate Sodium (Colace) 100 mg DAILY PO Last administered on 09/13/16 08:38; Admin Dose 100 MG; Start 09/06/16 at 09:00 Ergocalciferol (Drisdol) 50,000 unit Q7D PO Last administered on 09/07/16 08:29 ; Admin Dose 50,000 UNIT; Start 09/07/16 at 09:00 Famotidine (Pepcid) 40 mg DAILY PO Last administered on 09/13/16 08:37; Admin Dose 40 MG; Start 09/06/16 at 09:00 Gabapentin (Neurontin) 100 mg BID PO Last administered on 09/13/16 08:39; Admin Dose 100 MG; Start 09/05/16 at 21:00 Insulin Glargine (Lantus) 61 unit DAILY SC Last administered on 09/13/16 08:29 ; Admin Dose 61 UNIT; Start 09/06/16 at 09:00 Isosorbide Dinitrate (Isordil) 30 mg DAILY PO Last administered on 09/13/16 08: 38; Admin Dose 30 MG; Start 09/06/16 at 09:00 Methimazole (Tapazole) 5 mg DAILY PO Last administered on 09/13/16 08:39; Admin Dose 5 MG; Start 09/06/16 at 09:00 Metoprolol Succinate (Toprol Xl) 50 mg DAILY PO Last administered on 09/13/16 08:39; Admin Dose 50 MG; Start 09/06/16 at 09:00 Solifenacin (Vesicare) 5 mg DAILY PO Last administered on 09/13/16 08:39; Admin Dose 5 MG; Start 09/06/16 at 09:00 Triamcinolone Acetonide (Kenalog 0.5% Cr) 1 applic DAILY TOP Last administered on 09/13/16 08:40; Admin Dose 1 APPLIC; Start 09/06/16 at 09:00 Fish Oil (Fish Oil) 1,000 mg BID PO Last administered on 09/13/16 08:38; Admin Dose 1,000 MG; Start 09/08/16 at 09:00 Olopatadine HCl (Patanol 0.1% Oph) 1 drop BID BOTH EYES Last administered on 08:35; Admin Dose 1 DROP; Start 09/08/16 at 09:00 Atorvastatin Calcium (Lipitor) 80 mg DAILY@21 PO Last administered on 09/12/16 20:14; Admin Dose 80 MG; Start 09/05/16 at 21:00 Miscellaneous Information 1 ea NOTE XX ; Start 09/05/16 at 17:30 Glucose (Glutose) 15 gm Q15M PRN PO DECREASED GLUCOSE; Start 09/05/16 at 17:30 Glucose (Glutose) 22.5 gm Q15M PRN PO DECREASED GLUCOSE; Start 09/05/16 at 17: 30 Dextrose (D50w Syringe) 25 ml Q15M PRN IV DECREASED GLUCOSE; Start 09/05/16 at 17:30 Dextrose (D50w Syringe) 50 ml Q15M PRN IV DECREASED GLUCOSE; Start 09/05/16 at 17:30 Glucagon (Glucagen) 1 mg Q15M PRN IM DECREASED GLUCOSE; Start 09/05/16 at 17:30 Glucose (Glutose) 15 gm Q15M PRN BUCCAL DECREASED GLUCOSE; Start 09/05/16 at 17 :30 Diagnostic Test (Pha) (Accu-Chek) 1 ea 02 XX Last administered on 09/10/16 02: 52; Admin Dose 1 EA; Start 09/06/16 at 12:30 Ibuprofen (Motrin) 400 mg TID PRN PO MODERATE PAIN LEVEL 4-6; Start 09/09/16 at 10:00 Insulin Glargine (Lantus) 15 unit QHS SC Last administered on 09/12/16 21:42; Admin Dose 15 UNIT; Start 09/12/16 at 21:00 Assessment/Plan Chief Complaint/Hosp Course Impression 1. Intractable nausea, vomiting, moderate to severe dehydration, intractable pain due to shingles on IV Fluids pain appears to be improving 2. Right knee cellultiis with Intractable right knee pain, status post steroid injections 2. Essential hypertension. Continue Imdur and Toprol as well. 3. History of shingles. Continue acyclovir at current dose. 4. High cholesterol. Continue Lipitor. 5. Recent TIA. Again, continue aspirin and Plavix for now. 6. Gastrointestinal prophylaxis - Pepcid. 7. Extremely elevated blood glucose despite significant insulin dosing Plan: 1. Endocrinology consult for glycemic management additional insulin this morning. May require transfer to intensive care unit for IV insulin drip 2. Degenerative joint disease status post steroid injections by Dr. Mix 3. Continue acyclovir for shingles 4. Will likely need a long-term facility placement Continue DVT and GI prophylaxis Problems: SOC[facility]RO GARBER [facility], [facility] Sep 13, 2016 08:57
[2016-09-13] MEDS ORDERED: INSULIN ASPART [NOVOLOG] 3 ML PEN SC ONE (09:00)
[2016-09-13] MEDS ORDERED: DEXTROSE 50% 50 ML SYRINGE IV PRN ×2 (15:00)
[2016-09-13] MEDS: SOD CHLORIDE 0.45% 1,000 ML IV SCH (15:52)
[2016-09-13] MEDS ORDERED: DEXTROSE 5%-0.45% NACL 1,000 ML IV SCH (16:00)
[2016-09-13] MEDS: INSULIN HUMAN REGULAR 100 UNIT in SOD CHLORIDE 0.9% 99 ML IV SCH (16:14)
[2016-09-13] MEDS: hydrALAzine 20 MG INJ IV PRN (16:16)
[2016-09-13 16:26] LABS: POTASSIUM 3.8 mmol/L (3.5-5.1)
[2016-09-13 16:28] LABS: CREATININE 1.07 mg/dl (0.44-1.00)
[2016-09-13 16:29] LABS: CALCIUM 9.9 mg/dl (8.4-10.2)
[2016-09-13] MEDS: POTASSIUM CHLORIDE 50 ML IVPB PRN (17:12)
[2016-09-13] MEDS: morphine 2 MG INJ IV PRN (17:12)
[2016-09-13] MEDS: ACCU-CHEK XX SCH ×7 (17:13→23:06)
[2016-09-13] MEDS ORDERED: LABETALOL HCL 20MG INJ IV ONE (18:00)
[2016-09-13] MEDS: ATORVASTATIN 80 MG TAB PO SCH (21:19)
--- NOTE | 2016-09-13 22:22 | CONS ---
Date/Time of Note Date/Time of Note DATE: 09/13/16 TIME: 22:07 Assessment/Plan Assessment/Plan Problems: (1) Diabetes mellitus type 2 in obese Status: Chronic Comment: Hyperglycemia with mild anion gap acidosis due to increased insulin resistance from corticosteroid injections. Transferred to ICU for insulin drip for glycemic management. Additional Assessment/Plan Insulin drip per Thank you for asking me to participate in this patient's care. Consultation Date/Type/Reason Admit Date/Time Sep 05, 2016 at 15:41 Date of Consultation: Sep 13, 2016 Type of Consultation: Endocrine Reason for Consultation Glycemic Management Referring Provider: SOC[facility] GARBER MD, [facility] Hx of Present Illness 76 year old woman with known type 2 diabetes mellitus admitted for generalized weakness, difficult ambulating and failure to thrive. Given bilateral knee corticosteroid injections with resultant extreme hyperglycemia with a mild acidosis. Transferred to ICU for insulin drip. Consutled to assist with glycemic management Patient is a poor historian ergo limited ROS Musculoskeletal: other (complains of knee pain) Past Medical History Medical History: diabetes, other (TIA) Past Surgical History Past Surgical Hx: other (NOt known) Family History Significant Family History: other (Not known) Social History Alcohol Use: other (Not Known) Smoking Status: Never smoker Exam/Review of Systems Vital Signs Vitals Vital Signs Date Time Temp Pulse Resp B/P Pulse Ox O2 Delivery O2 Flow Rate FiO2 09/13/16 20:00 98 26 146/68 97 Room Air 09/13/16 19:00 98.4 09/10/16 17:10 21 Intake and Output 09/12/16 09/12/16 09/13/16 15:00 23:00 07:00 Intake Total 920 ml 480 ml Balance 920 ml 480 ml Exam Constitutional: alert, obese Head: normocephalic Eyes: EOMI, PERRL, nl conjunctiva Neck: supple Respiratory: clear to auscultation Cardiovascular: regular rate and rhythm Musculoskeletal: nl extremities to inspection Extremities: normal pulses Results POC glucose reviewed Result Diagram: 09/12/16 0510 09/13/16 1600 Results 24 hrs Laboratory Tests Test 09/12/16 22:54 09/13/16 02:18 09/13/16 07:50 09/13/16 09:39 Bedside Glucose 389 H 326 H 374 H 394 H Test 09/13/16 10:44 09/13/16 12:14 09/13/16 14:38 09/13/16 16:00 Bedside Glucose 481 *H 468 *H 383 H Sodium Level 144 Potassium Level 3.8 Chloride Level 108 Carbon Dioxide Level 21 Anion Gap 19 H Blood Urea Nitrogen 36 H Creatinine 1.07 H Glucose Level 366 #H Calcium Level 9.9 Test 09/13/16 16:08 09/13/16 17:11 09/13/16 18:21 09/13/16 19:10 Bedside Glucose 306 H 286 H 274 H 205 Test 09/13/16 20:03 09/13/16 21:16 Bedside Glucose 165 138 Medications Medications Current Medications Ondansetron HCl (Zofran Inj) 4 mg Q6H PRN IV NAUSEA AND/OR VOMITING; Start at 17:00 Acetaminophen (Tylenol Tab) 650 mg Q6H PRN PO PAIN LEVEL 1-3 OR FEVER Last administered on 09/11/16 18:01; Admin Dose 650 MG; Start 09/05/16 at 17:00 Acetaminophen/ Hydrocodone Bitart ([place] (5/325)) 1 tab Q6H PRN PO MODERATE PAIN LEVEL 4-6; Start 09/05/16 at 17:00 Morphine Sulfate (morphine) 2 mg Q4H PRN IV SEVERE PAIN LEVEL 7-10 Last administered on 09/13/16 17:12; Admin Dose 2 MG; Start 09/05/16 at 17:00 Docusate Sodium (Colace) 100 mg Q12H PRN PO CONSTIPATION; Start 09/05/16 at 17: 00 Magnesium Hydroxide (Milk Of Mag) 30 ml DAILY PRN PO CONSTIPATION; Start at 17:00 Sodium Biphosphate/ Sodium Phosphate (Fleet Enema) 133 ml DAILY PRN [place] CONSTIPATION; Start 09/05/16 at 17:00 Heparin Sodium (Porcine) (Heparin (5000 Units/0.5 ml)) 5,000 unit Q12 SC Last administered on 09/13/16 21:21; Admin Dose 5,000 UNIT; Start 09/05/16 at 21:00 Lorazepam (Ativan) 0.5 mg Q6H PRN IV ANXIETY; Start 09/05/16 at 17:00 Hydralazine HCl (Apresoline) 10 mg Q6H PRN IV ELEVATED BLOOD PRESSURE Last administered on 09/13/16 16:16; Admin Dose 10 MG; Start 09/05/16 at 17:00 Nitroglycerin (Nitroglycerin (Sl Tab) 0.4 Mg) 1 tab Q5M PRN SL ANGINA; Start at 17:00 Aspirin (Halfprin) 81 mg DAILY PO Last administered on 09/13/16 08:38; Admin Dose 81 MG; Start 09/06/16 at 09:00 Clopidogrel Bisulfate (plaVIX) 75 mg DAILY PO Last administered on 09/13/16 08: 39; Admin Dose 75 MG; Start 09/06/16 at 09:00 Cyclosporine (Restasis) 1 drop Q12 BOTH EYES Last administered on 09/13/16 21: 19; Admin Dose 1 DROP; Start 09/05/16 at 21:00 Docusate Sodium (Colace) 100 mg DAILY PO Last administered on 09/13/16 08:38; Admin Dose 100 MG; Start 09/06/16 at 09:00 Ergocalciferol (Drisdol) 50,000 unit Q7D PO Last administered on 09/07/16 08:29 ; Admin Dose 50,000 UNIT; Start 09/07/16 at 09:00 Famotidine (Pepcid) 40 mg DAILY PO Last administered on 09/13/16 08:37; Admin Dose 40 MG; Start 09/06/16 at 09:00 Gabapentin (Neurontin) 100 mg BID PO Last administered on 09/13/16 21:19; Admin Dose 100 MG; Start 09/05/16 at 21:00 Isosorbide Dinitrate (Isordil) 30 mg DAILY PO Last administered on 09/13/16 08: 38; Admin Dose 30 MG; Start 09/06/16 at 09:00 Methimazole (Tapazole) 5 mg DAILY PO Last administered on 09/13/16 08:39; Admin Dose 5 MG; Start 09/06/16 at 09:00 Solifenacin (Vesicare) 5 mg DAILY PO Last administered on 09/13/16 08:39; Admin Dose 5 MG; Start 09/06/16 at 09:00 Triamcinolone Acetonide (Kenalog 0.5% Cr) 1 applic DAILY TOP Last administered on 09/13/16 08:40; Admin Dose 1 APPLIC; Start 09/06/16 at 09:00 Fish Oil (Fish Oil) 1,000 mg BID PO Last administered on 09/13/16 21:19; Admin Dose 1,000 MG; Start 09/08/16 at 09:00 Olopatadine HCl (Patanol 0.1% Oph) 1 drop BID BOTH EYES Last administered on 21:19; Admin Dose 1 DROP; Start 09/08/16 at 09:00 Atorvastatin Calcium (Lipitor) 80 mg DAILY@21 PO Last administered on 09/13/16 21:19; Admin Dose 80 MG; Start 09/05/16 at 21:00 Ibuprofen (Motrin) 400 mg TID PRN PO MODERATE PAIN LEVEL 4-6; Start 09/09/16 at 10:00 Diagnostic Test (Pha) 1 ea 1 ea Q1H XX Last administered on 09/13/16 21:19; Admin Dose 1 EA; Start 09/13/16 at 17:00 Insulin Human Regular/Sodium Chloride (Novolin-R/NS) 100 ml @ 0 mls/hr Q0M IV Last administered on 09/13/16 16:14; Admin Dose 7 MLS/HR; Start 09/13/16 at 17:00 Dextrose (D50w Syringe) 25 ml Q15M PRN IV Till BS 80 mg/dL or above x2; Start 09/13/16 at 15:00 Dextrose 50 ml 50 ml Q15M PRN IV Till BS 80 mg/dL or above x2; Start 09/13/16 at 15:00 Sodium Chloride 1,000 ml @ 100 mls/hr Q10H IV Last administered on 09/13/16 15 :52; Admin Dose 100 MLS/HR; Start 09/13/16 at 15:00 Dextrose/Sodium Chloride (D5-1/2ns) 1,000 ml @ 100 mls/hr Q10H IV Last administered on 09/13/16 21:23; Admin Dose 100 MLS/HR; Start 09/13/16 at 16:00; Status Future Hold Metoprolol Succinate (Toprol Xl) 50 mg BID PO ; Start 09/14/16 at 21:00 Lisinopril (Zestril) 20 mg DAILY PO ; Start 09/14/16 at 09:00 Hydralazine HCl (Apresoline) 25 mg DAILY PO ; Start 09/14/16 at 09:00 CECILIA HERBERT MD Sep 13, 2016 22:21
[2016-09-14] VITALS (24 sets, daily range): BP systolic 95–160; BP diastolic 43–123; PULSE 68–95; RESP 16–24
[2016-09-14] MEDS: SOD CHLORIDE 0.45% 1,000 ML IV SCH ×3 (01:00→20:26)
[2016-09-14] MEDS: ACCU-CHEK XX SCH ×24 (01:20→23:00)
[2016-09-14 01:44] LABS: CALCIUM 9.8 mg/dl (8.4-10.2); CREATININE 1.02 mg/dl (0.44-1.00); POTASSIUM 4.5 mmol/L (3.5-5.1)
[2016-09-14 05:07] LABS: ADD UMIC YES; URINE BILIRUBIN (Dip) NEGATIVE (NEGATIVE); URINE BLOOD (Dip) NEGATIVE (NEGATIVE); URINE COLOR LT. YELLOW (YELLOW); URINE GLUCOSE (Dip) NEGATIVE (NEGATIVE); URINE KETONES (Dip) NEGATIVE (NEGATIVE); URINE LEUKOCYTE ESTERASE (Dip) TRACE (NEGATIVE); URINE NITRITE (Dip) NEGATIVE (NEGATIVE); URINE TOTAL PROTEIN (Dip) NEGATIVE (NEGATIVE); URINE UROBILINOGEN (Dip) 0.2 E.U./dL (0.1-1.0)
[2016-09-14 05:22] LABS: BACTERIA,URINE MODERATE; URINE RBCS NONE SEEN /HPF (0)
[2016-09-14 05:23] LABS: ADD SCAN DIFF NO
[2016-09-14 05:26] LABS: BASOPHILS % 0.2 % (0.0-2.0); HEMATOCRIT 34.4 % (37.0-47.0); HEMOGLOBIN 11.2 g/dl (12.0-16.0); LYMPHOCYTES # 2.1 10^3/ul (0.8-2.9); LYMPHOCYTES % 23.5 % (15.0-51.0); MEAN CORPUSCULAR HEMOGLOBIN 28.8 pg (29.0-33.0); MEAN CORPUSCULAR HGB CONC 32.6 g/dl (32.0-37.0); MEAN CORPUSCULAR VOLUME 88.4 fl (82.0-101.0); MEAN PLATELET VOLUME 9.5 fl (7.4-10.4); MONOCYTE # 0.8 10^3/ul (0.3-0.9); MONOCYTES % 8.4 % (0.0-11.0); NEUTROPHIL # 6.1 10^3/ul (1.6-7.5); NEUTROPHILS % 67.1 % (39.0-77.0); PLATELET COUNT 392 10^3/UL (140-415); RED BLOOD COUNT 3.89 10^6/ul (4.20-5.40); RED CELL DISTRIBUTION WIDTH 13.8 % (11.5-14.5); WHITE BLOOD COUNT 9.1 10^3/ul (4.8-10.8)
[2016-09-14] MEDS: INSULIN HUMAN REGULAR 100 UNIT in SOD CHLORIDE 0.9% 99 ML IV SCH (06:09)
[2016-09-14 06:13] LABS: POTASSIUM 3.6 mmol/L (3.5-5.1)
[2016-09-14 06:15] LABS: CREATININE 0.99 mg/dl (0.44-1.00)
[2016-09-14 06:16] LABS: CALCIUM 9.5 mg/dl (8.4-10.2); MAGNESIUM 1.6 mg/dl (1.7-2.5); PHOSPHORUS 4.4 mg/dl (2.5-4.9)
[2016-09-14] MEDS: POTASSIUM CHLORIDE 50 ML IVPB PRN ×2 (06:43→10:10)
[2016-09-14] MEDS ORDERED: MAGNESIUM SULFATE 2 GM/50 ML 50 ML IVPB ONE (07:00)
[2016-09-14] MEDS: morphine 2 MG INJ IV PRN (07:19)
[2016-09-14] MEDS: OLOPATADINE 0.1% 5 ML OPH BOTH EYES SCH ×2 (09:06→20:24)
[2016-09-14] MEDS: CYCLOSPORINE 0.05% OPH DROPERETTE BOTH EYES SCH ×2 (09:07→21:05)
[2016-09-14] MEDS: FISH OIL 1,000 MG CAP PO SCH ×2 (09:08→20:32)
[2016-09-14] MEDS: DOCUSATE SODIUM 100 MG CAP PO SCH (09:08)
[2016-09-14] MEDS: ASPIRIN (EC) 81 MG TAB PO SCH (09:08)
[2016-09-14] MEDS: ISOSORBIDE DINITRATE 10 MG TAB PO SCH (09:08)
[2016-09-14] MEDS: METHIMAZOLE 5 MG TAB PO SCH (09:09)
[2016-09-14] MEDS: LISINOPRIL 20 MG TAB PO SCH (09:09)
[2016-09-14] MEDS: GABAPENTIN 100 MG CAP PO SCH ×2 (09:09→20:33)
[2016-09-14] MEDS: FAMOTIDINE 20 MG TAB PO SCH (09:09)
[2016-09-14] MEDS: CLOPIDOGREL 75 MG TAB PO SCH (09:09)
[2016-09-14] MEDS: TRIAMCINOLONE ACET 0.5% 15 GM CR TOP SCH (09:09)
[2016-09-14] MEDS: HEPARIN 5,000 UNIT/0.5 ML VIAL SC SCH ×2 (09:10→20:37)
[2016-09-14] MEDS: SOLIFENACIN 5 MG TAB PO SCH (09:40)
[2016-09-14] MEDS: ERGOCALCIFEROL 50,000 UNIT CAP PO SCH (09:40)
[2016-09-14 12:23] LABS: POTASSIUM 3.7 mmol/L (3.5-5.1)
[2016-09-14 12:26] LABS: CALCIUM 9.3 mg/dl (8.4-10.2); CREATININE 1.05 mg/dl (0.44-1.00)
--- NOTE | 2016-09-14 15:57 | CONS ---
Date/Time of Note Date/Time of Note DATE: 09/14/16 TIME: 15:53 Assessment/Plan Assessment/Plan Chief Complaint/Hosp Course 76 year old woman with known type 2 diabetes mellitus admitted for generalized weakness, difficult ambulating and failure to thrive. Given bilateral knee corticosteroid injections with resultant extreme hyperglycemia with a mild acidosis. Transferred to ICU for insulin drip. Consutled to assist with glycemic management Problems: (1) Diabetes mellitus type 2 in obese Status: Chronic Comment: Hyperglycemia resolved. Requiring approximately 110 units insulin over 24 hours. Will convert from insulin drip to basal/prandial insulin regimen with glargine and aspart insulins. Additional Assessment/Plan Once off insulin drip can transfer back to med-surgical floor from endocrine viewpoint Consultation Date/Type/Reason Admit Date/Time Sep 05, 2016 at 15:41 Initial Consult Date 09/13/16 Type of Consultation: Endocrine Reason for Consultation Diabetes management Referring Provider: SOCORRO GARBER MD, [facility] 24 HR Interval Summary Free Text/Dictation Patient asleep Exam/Review of Systems Vital Signs Vitals Vital Signs Date Time Temp Pulse Resp B/P Pulse Ox O2 Delivery O2 Flow Rate FiO2 09/14/16 14:00 19 129/55 94 Room Air 09/14/16 13:00 86 09/14/16 12:00 98.2 09/14/16 08:00 21 Intake and Output 09/13/16 09/13/16 09/14/16 15:00 23:00 07:00 Intake Total 1018 ml 836.5 ml Output Total 910 ml 400 ml Balance 108 ml 436.5 ml Exam Constitutional: other (patient aslleep) Results POC glucose and labs reviewed Result Diagram: 09/14/16 0428 09/14/16 1140 Results 24 hrs Laboratory Tests Test 09/13/16 16:00 09/13/16 16:08 09/13/16 17:11 09/13/16 18:21 Sodium Level 144 Potassium Level 3.8 Chloride Level 108 Carbon Dioxide Level 21 Anion Gap 19 H Blood Urea Nitrogen 36 H Creatinine 1.07 H Glucose Level 366 #H Calcium Level 9.9 Bedside Glucose 306 H 286 H 274 H Test 09/13/16 19:03 09/13/16 19:10 09/13/16 20:03 09/13/16 21:16 Urine Color LT. YELLOW Urine Clarity CLEAR Urine pH 5.5 Urine Specific [place] 1.015 Urine Ketones NEGATIVE Urine Nitrite NEGATIVE Urine Bilirubin NEGATIVE Urine Urobilinogen 0.2 E.U./dL Urine Leukocyte Esterase TRACE H Urine Microscopic RBC NONE SEEN Urine Microscopic WBC 5-10 Urine Bacteria MODERATE Urine Hemoglobin NEGATIVE Urine Glucose NEGATIVE Urine Total Protein NEGATIVE Bedside Glucose 205 165 138 Test 09/13/16 22:07 09/13/16 23:01 09/14/16 00:08 09/14/16 00:40 Bedside Glucose 136 140 113 Sodium Level 142 Potassium Level 4.5 Chloride Level 110 Carbon Dioxide Level 23 Anion Gap 14 Blood Urea Nitrogen 38 H Creatinine 1.02 H Glucose Level 122 # Calcium Level 9.8 Test 09/14/16 01:05 09/14/16 02:06 09/14/16 03:15 09/14/16 04:26 Bedside Glucose 120 145 150 129 Test 09/14/16 04:28 09/14/16 05:07 09/14/16 06:06 09/14/16 07:02 White Blood Count 9.1 Red Blood Count 3.89 L Hemoglobin 11.2 L Hematocrit 34.4 L Mean Corpuscular Volume 88.4 Mean Corpuscular Hemoglobin 28.8 L Mean Corpuscular Hemoglobin Concent 32.6 Red Cell Distribution Width 13.8 Platelet Count 392 Mean Platelet Volume 9.5 Neutrophils % 67.1 Lymphocytes % 23.5 Monocytes % 8.4 Eosinophils % 0.0 Basophils % 0.2 Nucleated Red Blood Cells % 0.0 Neutrophils # 6.1 Lymphocytes # 2.1 Monocytes # 0.8 Eosinophils # 0.0 Basophils # 0.0 Nucleated Red Blood Cells # 0.0 Sodium Level 144 Potassium Level 3.6 Chloride Level 109 Carbon Dioxide Level 22 Anion Gap 17 H Blood Urea Nitrogen 35 H Creatinine 0.99 Glucose Level 146 Calcium Level 9.5 Phosphorus Level 4.4 Magnesium Level 1.6 L Bedside Glucose 123 103 131 Test 09/14/16 08:11 09/14/16 09:03 09/14/16 10:07 09/14/16 11:05 Bedside Glucose 119 102 131 166 Test 09/14/16 11:40 09/14/16 12:05 09/14/16 13:00 09/14/16 14:12 Sodium Level 142 Potassium Level 3.7 Chloride Level 106 Carbon Dioxide Level 21 Anion Gap 19 H Blood Urea Nitrogen 35 H Creatinine 1.05 H Glucose Level 198 Calcium Level 9.3 Bedside Glucose 162 115 103 Test 09/14/16 15:05 Bedside Glucose 104 Medications Medications Current Medications Ondansetron HCl (Zofran Inj) 4 mg Q6H PRN IV NAUSEA AND/OR VOMITING; Start at 17:00 Acetaminophen (Tylenol Tab) 650 mg Q6H PRN PO PAIN LEVEL 1-3 OR FEVER Last administered on 09/11/16 18:01; Admin Dose 650 MG; Start 09/05/16 at 17:00 Acetaminophen/ Hydrocodone Bitart ([place] (5/325)) 1 tab Q6H PRN PO MODERATE PAIN LEVEL 4-6; Start 09/05/16 at 17:00 Morphine Sulfate (morphine) 2 mg Q4H PRN IV SEVERE PAIN LEVEL 7-10 Last administered on 09/14/16 07:19; Admin Dose 2 MG; Start 09/05/16 at 17:00 Docusate Sodium (Colace) 100 mg Q12H PRN PO CONSTIPATION; Start 09/05/16 at 17: 00 Magnesium Hydroxide (Milk Of Mag) 30 ml DAILY PRN PO CONSTIPATION; Start at 17:00 Sodium Biphosphate/ Sodium Phosphate (Fleet Enema) 133 ml DAILY PRN [place] CONSTIPATION; Start 09/05/16 at 17:00 Heparin Sodium (Porcine) (Heparin (5000 Units/0.5 ml)) 5,000 unit Q12 SC Last administered on 09/14/16 09:10; Admin Dose 5,000 UNIT; Start 09/05/16 at 21:00 Lorazepam (Ativan) 0.5 mg Q6H PRN IV ANXIETY; Start 09/05/16 at 17:00 Hydralazine HCl (Apresoline) 10 mg Q6H PRN IV ELEVATED BLOOD PRESSURE Last administered on 09/13/16 16:16; Admin Dose 10 MG; Start 09/05/16 at 17:00 Nitroglycerin (Nitroglycerin (Sl Tab) 0.4 Mg) 1 tab Q5M PRN SL ANGINA; Start at 17:00 Aspirin (Halfprin) 81 mg DAILY PO Last administered on 09/14/16 09:08; Admin Dose 81 MG; Start 09/06/16 at 09:00 Clopidogrel Bisulfate (plaVIX) 75 mg DAILY PO Last administered on 09/14/16 09: 09; Admin Dose 75 MG; Start 09/06/16 at 09:00 Cyclosporine (Restasis) 1 drop Q12 BOTH EYES Last administered on 09/14/16 09: 07; Admin Dose 1 DROP; Start 09/05/16 at 21:00 Docusate Sodium (Colace) 100 mg DAILY PO Last administered on 09/14/16 09:08; Admin Dose 100 MG; Start 09/06/16 at 09:00 Ergocalciferol (Drisdol) 50,000 unit Q7D PO Last administered on 09/14/16 09:40 ; Admin Dose 50,000 UNIT; Start 09/07/16 at 09:00 Famotidine (Pepcid) 40 mg DAILY PO Last administered on 09/14/16 09:09; Admin Dose 40 MG; Start 09/06/16 at 09:00 Gabapentin (Neurontin) 100 mg BID PO Last administered on 09/14/16 09:09; Admin Dose 100 MG; Start 09/05/16 at 21:00 Isosorbide Dinitrate (Isordil) 30 mg DAILY PO Last administered on 09/14/16 09: 08; Admin Dose 30 MG; Start 09/06/16 at 09:00 Methimazole (Tapazole) 5 mg DAILY PO Last administered on 09/14/16 09:09; Admin Dose 5 MG; Start 09/06/16 at 09:00 Solifenacin (Vesicare) 5 mg DAILY PO Last administered on 09/14/16 09:40; Admin Dose 5 MG; Start 09/06/16 at 09:00 Triamcinolone Acetonide (Kenalog 0.5% Cr) 1 applic DAILY TOP Last administered on 09/14/16 09:09; Admin Dose 1 APPLIC; Start 09/06/16 at 09:00 Fish Oil (Fish Oil) 1,000 mg BID PO Last administered on 09/14/16 09:08; Admin Dose 1,000 MG; Start 09/08/16 at 09:00 Olopatadine HCl (Patanol 0.1% Oph) 1 drop BID BOTH EYES Last administered on 09:06; Admin Dose 1 DROP; Start 09/08/16 at 09:00 Atorvastatin Calcium (Lipitor) 80 mg DAILY@21 PO Last administered on 09/13/16 21:19; Admin Dose 80 MG; Start 09/05/16 at 21:00 Ibuprofen (Motrin) 400 mg TID PRN PO MODERATE PAIN LEVEL 4-6; Start 09/09/16 at 10:00 Diagnostic Test (Pha) 1 ea 1 ea Q1H XX Last administered on 09/14/16 15:04; Admin Dose 1 EA; Start 09/13/16 at 17:00 Insulin Human Regular/Sodium Chloride (Novolin-R/NS) 100 ml @ 0 mls/hr Q0M IV Last administered on 09/14/16 06:09; Admin Dose 5 MLS/HR; Start 09/13/16 at 17:00 Dextrose (D50w Syringe) 25 ml Q15M PRN IV Till BS 80 mg/dL or above x2; Start 09/13/16 at 15:00 Dextrose 50 ml 50 ml Q15M PRN IV Till BS 80 mg/dL or above x2; Start 09/13/16 at 15:00 Sodium Chloride 1,000 ml @ 100 mls/hr Q10H IV Last administered on 09/14/16 09 :27; Admin Dose 100 MLS/HR; Start 09/13/16 at 15:00 Dextrose/Sodium Chloride (D5-1/2ns) 1,000 ml @ 100 mls/hr Q10H IV Last administered on 09/13/16 21:23; Admin Dose 100 MLS/HR; Start 09/13/16 at 16:00; Status Future Hold Metoprolol Succinate (Toprol Xl) 50 mg BID PO ; Start 09/14/16 at 21:00 Lisinopril (Zestril) 20 mg DAILY PO Last administered on 09/14/16 09:09; Admin Dose 20 MG; Start 09/14/16 at 09:00 Hydralazine HCl (Apresoline) 25 mg DAILY PO Last administered on 09/14/16 09:08 ; Admin Dose 25 MG; Start 09/14/16 at 09:00 Insulin Glargine (Lantus) 60 unit DAILY@08 SC ; Start 09/15/16 at 08:00; Status CECILIA CAZARES MD Sep 14, 2016 15:57
--- NOTE | 2016-09-14 16:43 | PN ---
DATE: 09/14/2016 HISTORY: The patient is in ICU, alert, comfortable without respiratory distress on an insulin drip. She is status post steroid injection of the knee. She also has a history of recent hospitalizatio n for TIA and shingles. PHYSICAL EXAMINATION: GENERAL: Shows her to be well-developed, well-nourished, currently in no acute distress. VITAL SIGNS: Pulse is 80, respirations 21, blood pressure 135/65, with temperature of 98.4. HEAD AND NECK: Shows no acute inflammation. HEART: Regular, without murmurs or gallops. CHEST: Clear. ABDOMEN: Soft, nontender, without masses or organomegaly. EXTREMITIES: Warm. NEUROLOGIC: Fairly alert. LABORATORY DATA: Hemoglobin 11.2, hematocrit 34.4, white count 9.1, platelets 392,000. Sodium 142, potassium 3.7, chloride 106, bicarb 21, BUN 35, creatinine 1.05, glucose 198. Blood sugars are now running in the low- to mid-100s on IV insulin. ASSESSMENT AND PLAN: 1. Pain due to shingles, improved. 2. Nausea and vomiting and dehydration, improved with treatment. 3. Right knee cellulitis with knee pain, improved following steroid injection. 4. Hypertension, controlled. 5. Diabetes mellitus, improved with IV insulin. 6. Dyslipidemia. 7. Status post recent transient ischemic attack. PLAN: Continue insulin per endocrinology and switch back to subcutaneous when stable. Continue oth er measures. Discussed with nursing. Dictated By: JEAN-CLAUDE WAITE/JEAN Conf#: [id number] DID#: [id number]
[2016-09-14 18:02] LABS: POTASSIUM 4.3 mmol/L (3.5-5.1)
[2016-09-14 18:04] LABS: CREATININE 1.06 mg/dl (0.44-1.00)
[2016-09-14 18:05] LABS: CALCIUM 9.3 mg/dl (8.4-10.2)
[2016-09-14] MEDS: ATORVASTATIN 80 MG TAB PO SCH (20:33)
[2016-09-14] MEDS: METOPROLOL (XL) 50 MG TAB PO SCH (20:33)
[2016-09-15] VITALS (20 sets, daily range): BP systolic 122–166; BP diastolic 52–86; PULSE 68–88; RESP 16–21
[2016-09-15] MEDS: ACCU-CHEK XX SCH ×10 (00:21→09:44)
[2016-09-15 01:47] LABS: POTASSIUM 3.9 mmol/L (3.5-5.1)
[2016-09-15 01:49] LABS: CREATININE 0.94 mg/dl (0.44-1.00)
[2016-09-15 01:50] LABS: CALCIUM 9.1 mg/dl (8.4-10.2)
[2016-09-15] MEDS: SOD CHLORIDE 0.45% 1,000 ML IV SCH ×2 (05:52→16:23)
[2016-09-15 06:44] LABS: POTASSIUM 4.4 mmol/L (3.5-5.1)
[2016-09-15 06:46] LABS: CREATININE 0.86 mg/dl (0.44-1.00)
[2016-09-15] MEDS ORDERED: DEXTROSE 50% 50 ML SYRINGE IV PRN ×2 (07:00)
[2016-09-15] MEDS ORDERED: GLUCOSE GEL 15 GRAM TUBE BUCCAL PRN (07:00)
[2016-09-15] MEDS ORDERED: GLUCOSE GEL 15 GRAM TUBE PO PRN ×2 (07:00)
[2016-09-15] MEDS ORDERED: GLUCAGON 1 MG INJ IM PRN (07:00)
[2016-09-15] MEDS: INSULIN ASPART [NOVOLOG] 3 ML PEN SC SCH ×3 (08:05→17:28)
[2016-09-15] MEDS: INSULIN GLARGINE [LANtus] 3 ML PEN SC SCH (08:06)
[2016-09-15] MEDS: CYCLOSPORINE 0.05% OPH DROPERETTE BOTH EYES SCH ×2 (08:24→20:20)
[2016-09-15] MEDS: OLOPATADINE 0.1% 5 ML OPH BOTH EYES SCH ×2 (08:24→20:20)
[2016-09-15] MEDS: GABAPENTIN 100 MG CAP PO SCH ×2 (08:26→20:21)
[2016-09-15] MEDS: FAMOTIDINE 20 MG TAB PO SCH (08:26)
[2016-09-15] MEDS: ISOSORBIDE DINITRATE 10 MG TAB PO SCH (08:26)
[2016-09-15] MEDS: CLOPIDOGREL 75 MG TAB PO SCH (08:26)
[2016-09-15] MEDS: FISH OIL 1,000 MG CAP PO SCH ×2 (08:26→20:20)
[2016-09-15] MEDS: DOCUSATE SODIUM 100 MG CAP PO SCH (08:26)
[2016-09-15] MEDS: ASPIRIN (EC) 81 MG TAB PO SCH (08:26)
[2016-09-15] MEDS: METOPROLOL (XL) 50 MG TAB PO SCH ×2 (08:27→20:21)
[2016-09-15] MEDS: LISINOPRIL 20 MG TAB PO SCH (08:27)
[2016-09-15] MEDS: METHIMAZOLE 5 MG TAB PO SCH (08:27)
[2016-09-15] MEDS: TRIAMCINOLONE ACET 0.5% 15 GM CR TOP SCH (08:28)
[2016-09-15] MEDS: HEPARIN 5,000 UNIT/0.5 ML VIAL SC SCH ×2 (08:28→20:52)
[2016-09-15] MEDS: SOLIFENACIN 5 MG TAB PO SCH (08:48)
[2016-09-15 13:03] LABS: POTASSIUM 4.4 mmol/L (3.5-5.1)
[2016-09-15 13:06] LABS: CALCIUM 8.8 mg/dl (8.4-10.2); CREATININE 0.88 mg/dl (0.44-1.00)
--- NOTE | 2016-09-15 16:07 | PN ---
Date/Time of Note Date/Time of Note DATE: 09/15/16 TIME: 16:05 Assessment/Plan VTE Prophylaxis VTE Prophylaxis Intervention: heparin Lines/Catheters IV Catheter Type (from Nrsg): Peripheral IV Assessment/Plan Chief Complaint/Hosp Course 1. Pain due to shingles, improved. 2. Nausea and vomiting and dehydration, improved with treatment. 3. Right knee cellulitis with knee pain, improved following steroid injection. 4. Hypertension, controlled. 5. Diabetes mellitus, improved with IV insulin -DC Insulin gtt and start SubQ -Endo following 6. Dyslipidemia. 7. Status post recent transient ischemic attack Dispo- DC to SNF PPx- Heparin Problems: Subjective 24 Hr Interval Summary Constitutional: no complaints Exam/Review of Systems Vital Signs Vitals Vital Signs Date Time Temp Pulse Resp B/P Pulse Ox O2 Delivery O2 Flow Rate FiO2 09/15/16 15:00 80 20 135/62 96 Room Air 09/15/16 12:00 98.1 09/14/16 21:57 21 Intake and Output 09/14/16 09/14/16 09/15/16 15:00 23:00 07:00 Intake Total 1459.0 ml 1049 ml 808 ml Output Total 240 ml 580 ml 485 ml Balance 1219.0 ml 469 ml 323 ml Exam Constitutional: alert, oriented Respiratory: clear to auscultation Cardiovascular: regular rate and rhythm Gastrointestinal: soft, No distended Musculoskeletal: nl extremities to inspection Results Result Diagram: 09/14/16 0428 09/15/16 1210 Results 24 hrs Laboratory Tests Test 09/14/16 16:06 09/14/16 17:40 09/14/16 18:01 09/14/16 19:09 Bedside Glucose 102 159 137 Sodium Level 139 Potassium Level 4.3 Chloride Level 105 Carbon Dioxide Level 22 Anion Gap 16 Blood Urea Nitrogen 35 H Creatinine 1.06 H Glucose Level 159 Calcium Level 9.3 Test 09/14/16 20:21 09/14/16 21:58 09/15/16 00:21 09/15/16 01:23 Bedside Glucose 137 119 122 Sodium Level 139 Potassium Level 3.9 Chloride Level 105 Carbon Dioxide Level 21 Anion Gap 17 H Blood Urea Nitrogen 34 H Creatinine 0.94 Glucose Level 124 Calcium Level 9.1 Test 09/15/16 01:53 09/15/16 04:40 09/15/16 05:20 09/15/16 05:56 Bedside Glucose 105 163 137 Sodium Level 138 Potassium Level 4.4 Chloride Level 105 Carbon Dioxide Level 21 Anion Gap 16 Blood Urea Nitrogen 34 H Creatinine 0.86 Glucose Level 161 Calcium Level 9.0 Test 09/15/16 06:53 09/15/16 08:03 09/15/16 09:02 09/15/16 12:04 Bedside Glucose 142 123 98 186 Test 09/15/16 12:10 Sodium Level 135 Potassium Level 4.4 Chloride Level 106 Carbon Dioxide Level 19 L Anion Gap 14 Blood Urea Nitrogen 32 H Creatinine 0.88 Glucose Level 192 Calcium Level 8.8 Medications Medications Current Medications Ondansetron HCl (Zofran Inj) 4 mg Q6H PRN IV NAUSEA AND/OR VOMITING; Start at 17:00 Acetaminophen (Tylenol Tab) 650 mg Q6H PRN PO PAIN LEVEL 1-3 OR FEVER Last administered on 09/11/16 18:01; Admin Dose 650 MG; Start 09/05/16 at 17:00 Acetaminophen/ Hydrocodone Bitart ([place] (5/325)) 1 tab Q6H PRN PO MODERATE PAIN LEVEL 4-6; Start 09/05/16 at 17:00 Morphine Sulfate (morphine) 2 mg Q4H PRN IV SEVERE PAIN LEVEL 7-10 Last administered on 09/14/16 07:19; Admin Dose 2 MG; Start 09/05/16 at 17:00 Docusate Sodium (Colace) 100 mg Q12H PRN PO CONSTIPATION; Start 09/05/16 at 17: 00 Magnesium Hydroxide (Milk Of Mag) 30 ml DAILY PRN PO CONSTIPATION; Start at 17:00 Sodium Biphosphate/ Sodium Phosphate (Fleet Enema) 133 ml DAILY PRN [place] CONSTIPATION; Start 09/05/16 at 17:00 Heparin Sodium (Porcine) (Heparin (5000 Units/0.5 ml)) 5,000 unit Q12 SC Last administered on 09/15/16 08:28; Admin Dose 5,000 UNIT; Start 09/05/16 at 21:00 Lorazepam (Ativan) 0.5 mg Q6H PRN IV ANXIETY; Start 09/05/16 at 17:00 Hydralazine HCl (Apresoline) 10 mg Q6H PRN IV ELEVATED BLOOD PRESSURE Last administered on 09/13/16 16:16; Admin Dose 10 MG; Start 09/05/16 at 17:00 Nitroglycerin (Nitroglycerin (Sl Tab) 0.4 Mg) 1 tab Q5M PRN SL ANGINA; Start at 17:00 Aspirin (Halfprin) 81 mg DAILY PO Last administered on 09/15/16 08:26; Admin Dose 81 MG; Start 09/06/16 at 09:00 Clopidogrel Bisulfate (plaVIX) 75 mg DAILY PO Last administered on 09/15/16 08 :26; Admin Dose 75 MG; Start 09/06/16 at 09:00 Cyclosporine (Restasis) 1 drop Q12 BOTH EYES Last administered on 09/15/16 08: 24; Admin Dose 1 DROP; Start 09/05/16 at 21:00 Docusate Sodium (Colace) 100 mg DAILY PO Last administered on 09/15/16 08:26; Admin Dose 100 MG; Start 09/06/16 at 09:00 Ergocalciferol (Drisdol) 50,000 unit Q7D PO Last administered on 09/14/16 09:40 ; Admin Dose 50,000 UNIT; Start 09/07/16 at 09:00 Famotidine (Pepcid) 40 mg DAILY PO Last administered on 09/15/16 08:26; Admin Dose 40 MG; Start 09/06/16 at 09:00 Gabapentin (Neurontin) 100 mg BID PO Last administered on 09/15/16 08:26; Admin Dose 100 MG; Start 09/05/16 at 21:00 Isosorbide Dinitrate (Isordil) 30 mg DAILY PO Last administered on 09/15/16 08 :26; Admin Dose 30 MG; Start 09/06/16 at 09:00 Methimazole (Tapazole) 5 mg DAILY PO Last administered on 09/15/16 08:27; Admin Dose 5 MG; Start 09/06/16 at 09:00 Solifenacin (Vesicare) 5 mg DAILY PO Last administered on 09/15/16 08:48; Admin Dose 5 MG; Start 09/06/16 at 09:00 Triamcinolone Acetonide (Kenalog 0.5% Cr) 1 applic DAILY TOP Last administered on 09/15/16 08:28; Admin Dose 1 APPLIC; Start 09/06/16 at 09:00 Fish Oil (Fish Oil) 1,000 mg BID PO Last administered on 09/15/16 08:26; Admin Dose 1,000 MG; Start 09/08/16 at 09:00 Olopatadine HCl (Patanol 0.1% Oph) 1 drop BID BOTH EYES Last administered on 08:24; Admin Dose 1 DROP; Start 09/08/16 at 09:00 Atorvastatin Calcium (Lipitor) 80 mg DAILY@21 PO Last administered on 09/14/16 20:33; Admin Dose 80 MG; Start 09/05/16 at 21:00 Ibuprofen 400 mg 400 mg TID PRN PO MODERATE PAIN LEVEL 4-6; Start 09/09/16 at 10 :00 Sodium Chloride (1/2 NS) 1,000 ml @ 100 mls/hr Q10H IV Last administered on 05:52; Admin Dose 100 MLS/HR; Start 09/13/16 at 15:00 Metoprolol Succinate (Toprol Xl) 50 mg BID PO Last administered on 09/15/16 08 :27; Admin Dose 50 MG; Start 09/14/16 at 21:00 Lisinopril (Zestril) 20 mg DAILY PO Last administered on 09/15/16 08:27; Admin Dose 20 MG; Start 09/14/16 at 09:00 Hydralazine HCl (Apresoline) 25 mg DAILY PO Last administered on 09/15/16 08: 25; Admin Dose 25 MG; Start 09/14/16 at 09:00 Insulin Glargine (Lantus) 60 unit DAILY@08 SC Last administered on 09/15/16 08 :06; Admin Dose 60 UNIT; Start 09/15/16 at 08:00 Miscellaneous Information 1 ea NOTE XX ; Start 09/15/16 at 07:00 Glucose (Glutose) 15 gm Q15M PRN PO DECREASED GLUCOSE; Start 09/15/16 at 07:00 Glucose (Glutose) 22.5 gm Q15M PRN PO DECREASED GLUCOSE; Start 09/15/16 at 07: 00 Dextrose (D50w Syringe) 25 ml Q15M PRN IV DECREASED GLUCOSE; Start 09/15/16 at 07:00 Dextrose (D50w Syringe) 50 ml Q15M PRN IV DECREASED GLUCOSE; Start 09/15/16 at 07:00 Glucagon (Glucagen) 1 mg Q15M PRN IM DECREASED GLUCOSE; Start 09/15/16 at 07:00 Glucose (Glutose) 15 gm Q15M PRN [place] DECREASED GLUCOSE; Start 09/15/16 at 07 :00 VIDAL TEMPLETON Sep 15, 2016 16:07
[2016-09-15] MEDS: morphine 2 MG INJ IV PRN (17:28)
[2016-09-15 18:02] LABS: CREATININE 0.93 mg/dl (0.44-1.00)
[2016-09-15 18:03] LABS: CALCIUM 9.1 mg/dl (8.4-10.2)
[2016-09-15] MEDS: ATORVASTATIN 80 MG TAB PO SCH (20:21)
--- NOTE | 2016-09-15 21:15 | CONS ---
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 Will cont. Consultation Date/Type/Reason Admit Date/Time Sep 05, 2016 at 15:41 Initial Consult Date 09/13/16 Type of Consultation: Endocrine Reason for Consultation T2DM Out Of Control (OOC) Referring Provider: SOCORRO GARBER MD, [facility] 24 HR Interval Summary Constitutional: no complaints Exam/Review of Systems Vital Signs Vitals VS - Last 72 Hours, by Label Date Time Temp Pulse Resp B/P Pulse Ox O2 Delivery O2 Flow Rate FiO2 09/15/16 19:46 98.4 89 18 142/65 95 09/15/16 18:00 86 21 144/70 99 Room Air 09/15/16 17:00 82 21 157/71 100 Room Air 09/15/16 16:00 98.6 78 20 139/67 96 Room Air 09/15/16 16:00 79 09/15/16 15:00 80 20 135/62 96 Room Air 09/15/16 14:00 86 19 140/80 98 Room Air 09/15/16 13:00 81 20 128/52 97 Room Air 09/15/16 12:00 81 09/15/16 12:00 98.1 73 18 122/53 97 Room Air 09/15/16 11:00 87 20 129/55 98 Room Air 09/15/16 10:00 88 17 125/62 97 Room Air 09/15/16 09:00 78 16 166/84 99 Room Air 09/15/16 08:00 98.0 76 18 160/75 98 Room Air 09/15/16 08:00 75 09/15/16 07:00 72 16 139/70 98 Room Air 09/15/16 06:00 75 19 150/69 96 Room Air 09/15/16 05:00 98.3 74 18 141/59 97 Room Air 09/15/16 04:00 74 09/15/16 04:00 72 19 164/69 96 Room Air 09/15/16 03:00 73 19 142/63 98 Room Air 09/15/16 02:00 75 17 142/63 97 Room Air 09/15/16 01:00 79 18 144/72 97 Room Air 09/15/16 00:00 97.8 68 18 127/86 96 Room Air 09/15/16 00:00 85 09/14/16 23:00 81 18 142/72 94 Room Air 09/14/16 22:00 83 24 147/85 96 Room Air 09/14/16 21:57 95 21 09/14/16 21:00 85 22 131/113 96 Room Air 09/14/16 20:00 85 09/14/16 20:00 97.9 87 20 127/61 95 Room Air 09/14/16 19:00 86 18 117/58 96 Room Air 09/14/16 18:16 96 21 09/14/16 18:00 88 24 126/70 96 Room Air 09/14/16 17:00 81 19 95/73 98 Room Air 09/14/16 16:00 74 09/14/16 16:00 97.8 75 18 128/60 96 Room Air 09/14/16 15:00 119/59 Room Air 09/14/16 14:00 19 129/55 94 Room Air 09/14/16 13:00 86 19 120/43 94 Room Air 09/14/16 12:00 98.2 94 21 118/59 97 Room Air 09/14/16 12:00 94 09/14/16 11:00 95 19 105/59 93 Room Air 09/14/16 10:00 90 22 117/62 95 Room Air 09/14/16 09:00 75 17 153/72 96 Room Air 09/14/16 08:00 97.9 78 19 153/72 94 Room Air 09/14/16 08:00 96 21 09/14/16 08:00 80 09/14/16 07:00 79 22 130/87 98 Room Air 09/14/16 06:00 68 21 135/65 95 Room Air 09/14/16 05:00 69 16 144/65 94 Room Air 09/14/16 04:00 98.4 71 16 137/64 96 Room Air 09/14/16 04:00 78 09/14/16 03:00 79 21 160/65 94 Room Air 09/14/16 02:00 74 19 137/65 99 Room Air 09/14/16 01:00 83 19 147/68 95 Room Air 09/14/16 00:00 98.6 135/123 98 Room Air 09/14/16 00:00 85 09/13/16 23:00 92 26 142/72 97 Room Air 09/13/16 22:00 92 20 155/73 96 Room Air 09/13/16 21:00 98 21 159/79 95 Room Air 09/13/16 20:00 96 09/13/16 20:00 98 26 146/68 97 Room Air 09/13/16 19:00 98.4 95 24 145/65 94 Room Air 09/13/16 18:45 96 24 167/64 95 09/13/16 18:30 94 25 153/68 95 09/13/16 18:15 88 22 157/126 96 09/13/16 18:00 100 25 162/81 95 Room Air 09/13/16 17:45 102 25 142/79 99 09/13/16 17:30 110 20 193/90 97 09/13/16 17:15 183/98 09/13/16 17:00 106 30 168/66 97 Room Air 09/13/16 16:45 105 31 161/67 99 09/13/16 16:30 102 27 148/61 97 Room Air 09/13/16 16:15 90 28 167/90 96 Room Air 09/13/16 16:00 114 09/13/16 16:00 98.6 92 181/91 96 Room Air 09/13/16 15:45 94 177/87 97 Room Air 09/13/16 15:00 94 29 151/102 96 Room Air 09/13/16 14:45 94 29 151/102 96 Room Air 09/13/16 14:30 92 29 157/96 95 Room Air 09/13/16 14:15 98.6 86 28 141/63 95 Room Air 09/13/16 14:05 87 09/13/16 08:25 98.2 78 20 150/69 98 Vital Signs Date Time Temp Pulse Resp B/P Pulse Ox O2 Delivery O2 Flow Rate FiO2 09/15/16 19:46 98.4 89 18 142/65 95 09/15/16 18:00 Room Air 09/14/16 21:57 21 Intake and Output 09/14/16 09/14/16 09/15/16 15:00 23:00 07:00 Intake Total 1459.0 ml 1049 ml 908 ml Output Total 240 ml 580 ml 485 ml Balance 1219.0 ml 469 ml 423 ml Exam Constitutional: alert, obese Respiratory: clear to auscultation, normal air movement Cardiovascular: nl pulses, regular rate and rhythm, No edema, No murmurs/extra sounds, No rub Gastrointestinal: bowel sounds, nl liver, spleen, non-tender, soft, No mass, No rebound or guarding Musculoskeletal: nl extremities to inspection Extremities: normal pulses, No clubbing, No cyanosis, No edema 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, nl mental status, nl speech, nl strength Additional Comments Bedside Glucose - 72 Hours Test 09/12/16 21:34 09/12/16 22:54 09/13/16 02:18 09/13/16 07:50 Bedside Glucose 415mg/dL (70-220) *H 389mg/dL (70-220) H 326mg/dL (70-220) H 374mg/dL (70-220) H Test 09/13/16 09:39 09/13/16 10:44 09/13/16 12:14 09/13/16 14:38 Bedside Glucose 394mg/dL (70-220) H 481mg/dL (70-220) *H 468mg/dL (70-220) *H 383mg/dL (70-220) H Test 09/13/16 16:08 09/13/16 17:11 09/13/16 18:21 09/13/16 19:10 Bedside Glucose 306mg/dL (70-220) H 286mg/dL (70-220) H 274mg/dL (70-220) H 205mg/dL (70-220) Test 09/13/16 20:03 09/13/16 21:16 09/13/16 22:07 09/13/16 23:01 Bedside Glucose 165mg/dL (70-220) 138mg/dL (70-220) 136mg/dL (70-220) 140mg/dL (70-220) Test 09/14/16 00:08 09/14/16 01:05 09/14/16 02:06 09/14/16 03:15 Bedside Glucose 113mg/dL (70-220) 120mg/dL (70-220) 145mg/dL (70-220) 150mg/dL (70-220) Test 09/14/16 04:26 09/14/16 05:07 09/14/16 06:06 09/14/16 07:02 Bedside Glucose 129mg/dL (70-220) 123mg/dL (70-220) 103mg/dL (70-220) 131mg/dL (70-220) Test 09/14/16 08:11 09/14/16 09:03 09/14/16 10:07 09/14/16 11:05 Bedside Glucose 119mg/dL (70-220) 102mg/dL (70-220) 131mg/dL (70-220) 166mg/dL (70-220) Test 09/14/16 12:05 09/14/16 13:00 09/14/16 14:12 09/14/16 15:05 Bedside Glucose 162mg/dL (70-220) 115mg/dL (70-220) 103mg/dL (70-220) 104mg/dL (70-220) Test 09/14/16 16:06 09/14/16 18:01 09/14/16 19:09 09/14/16 20:21 Bedside Glucose 102mg/dL (70-220) 159mg/dL (70-220) 137mg/dL (70-220) 137mg/dL (70-220) Test 09/14/16 21:58 09/15/16 00:21 09/15/16 01:53 09/15/16 04:40 Bedside Glucose 119mg/dL (70-220) 122mg/dL (70-220) 105mg/dL (70-220) 163mg/dL (70-220) Test 09/15/16 05:56 09/15/16 06:53 09/15/16 08:03 09/15/16 09:02 Bedside Glucose 137mg/dL (70-220) 142mg/dL (70-220) 123mg/dL (70-220) 98mg/dL (70-220) Test 09/15/16 12:04 09/15/16 17:26 09/15/16 20:23 Bedside Glucose 186mg/dL (70-220) 91mg/dL (70-220) 78mg/dL (70-220) Results Result Diagram: 09/14/16 0428 09/15/16 1735 Results 24 hrs Laboratory Tests Test 09/14/16 21:58 09/15/16 00:21 09/15/16 01:23 09/15/16 01:53 Bedside Glucose 119 122 105 Sodium Level 139 Potassium Level 3.9 Chloride Level 105 Carbon Dioxide Level 21 Anion Gap 17 H Blood Urea Nitrogen 34 H Creatinine 0.94 Glucose Level 124 Calcium Level 9.1 Test 09/15/16 04:40 09/15/16 05:20 09/15/16 05:56 09/15/16 06:53 Bedside Glucose 163 137 142 Sodium Level 138 Potassium Level 4.4 Chloride Level 105 Carbon Dioxide Level 21 Anion Gap 16 Blood Urea Nitrogen 34 H Creatinine 0.86 Glucose Level 161 Calcium Level 9.0 Test 09/15/16 08:03 09/15/16 09:02 09/15/16 12:04 09/15/16 12:10 Bedside Glucose 123 98 186 Sodium Level 135 Potassium Level 4.4 Chloride Level 106 Carbon Dioxide Level 19 L Anion Gap 14 Blood Urea Nitrogen 32 H Creatinine 0.88 Glucose Level 192 Calcium Level 8.8 Test 09/15/16 17:26 09/15/16 17:35 09/15/16 20:23 Bedside Glucose 91 78 Sodium Level 139 Potassium Level 4.0 Chloride Level 104 Carbon Dioxide Level 21 Anion Gap 18 H Blood Urea Nitrogen 31 H Creatinine 0.93 Glucose Level 102 # Calcium Level 9.1 Medications Medications Current Medications Ondansetron HCl (Zofran Inj) 4 mg Q6H PRN IV NAUSEA AND/OR VOMITING; Start at 17:00 Acetaminophen (Tylenol Tab) 650 mg Q6H PRN PO PAIN LEVEL 1-3 OR FEVER Last administered on 09/11/16 18:01; Admin Dose 650 MG; Start 09/05/16 at 17:00 Acetaminophen/ Hydrocodone Bitart ([place] (5/325)) 1 tab Q6H PRN PO MODERATE PAIN LEVEL 4-6; Start 09/05/16 at 17:00 Morphine Sulfate (morphine) 2 mg Q4H PRN IV SEVERE PAIN LEVEL 7-10 Last administered on 09/15/16 17:28; Admin Dose 2 MG; Start 09/05/16 at 17:00 Docusate Sodium (Colace) 100 mg Q12H PRN PO CONSTIPATION; Start 09/05/16 at 17: 00 Magnesium Hydroxide (Milk Of Mag) 30 ml DAILY PRN PO CONSTIPATION; Start at 17:00 Sodium Biphosphate/ Sodium Phosphate (Fleet Enema) 133 ml DAILY PRN [place] CONSTIPATION; Start 09/05/16 at 17:00 Heparin Sodium (Porcine) (Heparin (5000 Units/0.5 ml)) 5,000 unit Q12 SC Last administered on 09/15/16 20:52; Admin Dose 5,000 UNIT; Start 09/05/16 at 21:00 Lorazepam (Ativan) 0.5 mg Q6H PRN IV ANXIETY; Start 09/05/16 at 17:00 Hydralazine HCl (Apresoline) 10 mg Q6H PRN IV ELEVATED BLOOD PRESSURE Last administered on 09/13/16 16:16; Admin Dose 10 MG; Start 09/05/16 at 17:00 Nitroglycerin (Nitroglycerin (Sl Tab) 0.4 Mg) 1 tab Q5M PRN SL ANGINA; Start at 17:00 Aspirin (Halfprin) 81 mg DAILY PO Last administered on 09/15/16 08:26; Admin Dose 81 MG; Start 09/06/16 at 09:00 Clopidogrel Bisulfate (plaVIX) 75 mg DAILY PO Last administered on 09/15/16 08 :26; Admin Dose 75 MG; Start 09/06/16 at 09:00 Cyclosporine (Restasis) 1 drop Q12 BOTH EYES Last administered on 09/15/16 20: 20; Admin Dose 1 DROP; Start 09/05/16 at 21:00 Docusate Sodium (Colace) 100 mg DAILY PO Last administered on 09/15/16 08:26; Admin Dose 100 MG; Start 09/06/16 at 09:00 Ergocalciferol (Drisdol) 50,000 unit Q7D PO Last administered on 09/14/16 09:40 ; Admin Dose 50,000 UNIT; Start 09/07/16 at 09:00 Famotidine (Pepcid) 40 mg DAILY PO Last administered on 09/15/16 08:26; Admin Dose 40 MG; Start 09/06/16 at 09:00 Gabapentin (Neurontin) 100 mg BID PO Last administered on 09/15/16 20:21; Admin Dose 100 MG; Start 09/05/16 at 21:00 Isosorbide Dinitrate (Isordil) 30 mg DAILY PO Last administered on 09/15/16 08 :26; Admin Dose 30 MG; Start 09/06/16 at 09:00 Methimazole (Tapazole) 5 mg DAILY PO Last administered on 09/15/16 08:27; Admin Dose 5 MG; Start 09/06/16 at 09:00 Solifenacin (Vesicare) 5 mg DAILY PO Last administered on 09/15/16 08:48; Admin Dose 5 MG; Start 09/06/16 at 09:00 Triamcinolone Acetonide (Kenalog 0.5% Cr) 1 applic DAILY TOP Last administered on 09/15/16 08:28; Admin Dose 1 APPLIC; Start 09/06/16 at 09:00 Fish Oil (Fish Oil) 1,000 mg BID PO Last administered on 09/15/16 20:20; Admin Dose 1,000 MG; Start 09/08/16 at 09:00 Olopatadine HCl (Patanol 0.1% Oph) 1 drop BID BOTH EYES Last administered on 20:20; Admin Dose 1 DROP; Start 09/08/16 at 09:00 Atorvastatin Calcium (Lipitor) 80 mg DAILY@21 PO Last administered on 20:21; Admin Dose 80 MG; Start 09/05/16 at 21:00 Ibuprofen 400 mg 400 mg TID PRN PO MODERATE PAIN LEVEL 4-6; Start 09/09/16 at 10 :00 Sodium Chloride (1/2 NS) 1,000 ml @ 100 mls/hr Q10H IV Last administered on 16:23; Admin Dose 100 MLS/HR; Start 09/13/16 at 15:00 Metoprolol Succinate (Toprol Xl) 50 mg BID PO Last administered on 09/15/16 20 :21; Admin Dose 50 MG; Start 09/14/16 at 21:00 Lisinopril (Zestril) 20 mg DAILY PO Last administered on 09/15/16 08:27; Admin Dose 20 MG; Start 09/14/16 at 09:00 Hydralazine HCl (Apresoline) 25 mg DAILY PO Last administered on 09/15/16 08: 25; Admin Dose 25 MG; Start 09/14/16 at 09:00 Insulin Glargine (Lantus) 60 unit DAILY@08 SC Last administered on 09/15/16t 08 :06; Admin Dose 60 UNIT; Start 09/15/16 at 08:00 Miscellaneous Information 1 ea NOTE XX ; Start 09/15/16 at 07:00 Glucose (Glutose) 15 gm Q15M PRN PO DECREASED GLUCOSE; Start 09/15/16 at 07:00 Glucose (Glutose) 22.5 gm Q15M PRN PO DECREASED GLUCOSE; Start 09/15/16 at 07: 00 Dextrose (D50w Syringe) 25 ml Q15M PRN IV DECREASED GLUCOSE; Start 09/15/16 at 07:00 Dextrose (D50w Syringe) 50 ml Q15M PRN IV DECREASED GLUCOSE; Start 09/15/16 at 07:00 Glucagon (Glucagen) 1 mg Q15M PRN IM DECREASED GLUCOSE; Start 09/15/16 at 07:00 Glucose (Glutose) 15 gm Q15M PRN BUCCAL DECREASED GLUCOSE; Start 09/15/16 at 07 :00 ZAINAB NAVA MD Sep 15, 2016 21:15
[2016-09-16 01:28] LABS: CALCIUM 8.7 mg/dl (8.4-10.2); CREATININE 0.9 mg/dl (0.44-1.00); POTASSIUM 4.2 mmol/L (3.5-5.1)
[2016-09-16] MEDS: SOD CHLORIDE 0.45% 1,000 ML IV SCH ×3 (02:40→20:50)
[2016-09-16] MEDS: MAGNESIUM HYDROXIDE 30ML CUP PO PRN (06:29)
[2016-09-16 08:18] VITALS: BP 191/76; RESP 12
[2016-09-16] MEDS: INSULIN ASPART [NOVOLOG] 3 ML PEN SC SCH ×5 (08:30→20:49)
[2016-09-16] MEDS: INSULIN GLARGINE [LANtus] 3 ML PEN SC SCH (08:31)
[2016-09-16] MEDS: HEPARIN 5,000 UNIT/0.5 ML VIAL SC SCH ×2 (08:32→21:01)
[2016-09-16] MEDS: CYCLOSPORINE 0.05% OPH DROPERETTE BOTH EYES SCH ×2 (08:34→20:45)
[2016-09-16] MEDS: OLOPATADINE 0.1% 5 ML OPH BOTH EYES SCH ×2 (08:34→20:45)
[2016-09-16] MEDS: FAMOTIDINE 20 MG TAB PO SCH (08:35)
[2016-09-16] MEDS: FISH OIL 1,000 MG CAP PO SCH ×3 (08:35→20:51)
[2016-09-16] MEDS: CLOPIDOGREL 75 MG TAB PO SCH (08:35)
[2016-09-16] MEDS: ASPIRIN (EC) 81 MG TAB PO SCH (08:35)
[2016-09-16] MEDS: DOCUSATE SODIUM 100 MG CAP PO SCH (08:35)
[2016-09-16] MEDS: ISOSORBIDE DINITRATE 10 MG TAB PO SCH (08:35)
[2016-09-16] MEDS: GABAPENTIN 100 MG CAP PO SCH ×2 (08:35→20:45)
[2016-09-16] MEDS: METOPROLOL (XL) 50 MG TAB PO SCH ×2 (08:36→20:49)
[2016-09-16] MEDS: LISINOPRIL 20 MG TAB PO SCH (08:36)
[2016-09-16] MEDS: METHIMAZOLE 5 MG TAB PO SCH (08:36)
[2016-09-16] MEDS: SOLIFENACIN 5 MG TAB PO SCH (08:36)
[2016-09-16] MEDS: TRIAMCINOLONE ACET 0.5% 15 GM CR TOP SCH (08:37)
[2016-09-16 09:00] VITALS: BP 143/65; PULSE 83; RESP 18
[2016-09-16 09:01] LABS: CREATININE 0.9 mg/dl (0.44-1.00)
[2016-09-16 09:02] LABS: CALCIUM 9.2 mg/dl (8.4-10.2); POTASSIUM 4.3 mmol/L (3.5-5.1)
[2016-09-16] MEDS: LINAGLIPTIN 5 MG TABLET PO SCH (15:23)
--- NOTE | 2016-09-16 15:44 | CONS ---
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 Increase Novolog from 15 to 18 qac. Add correctional scale. Add linagliptin 5 mg/d. Reeval tomorrow. Consultation Date/Type/Reason Admit Date/Time Sep 05, 2016 at 15:41 Initial Consult Date 09/13/16 Type of Consultation: Endocrine Reason for Consultation T2DM OOC Referring Provider: SOCORRO GARBER MD, [facility] HR Interval Summary Constitutional: no complaints Exam/Review of Systems Vital Signs Vitals VS - Last 72 Hours, by Label Date Time Temp Pulse Resp B/P Pulse Ox O2 Delivery O2 Flow Rate FiO2 09/16/16 09:00 97.6 83 18 143/65 95 Room Air 09/16/16 08:18 98.3 74 12 191/76 96 09/15/16 19:46 98.4 89 18 142/65 95 09/15/16 18:00 86 21 144/70 99 Room Air 09/15/16 17:00 82 21 157/71 100 Room Air 09/15/16 16:00 98.6 78 20 139/67 96 Room Air 09/15/16 16:00 79 09/15/16 15:00 80 20 135/62 96 Room Air 09/15/16 14:00 86 19 140/80 98 Room Air 09/15/16 13:00 81 20 128/52 97 Room Air 09/15/16 12:00 81 09/15/16 12:00 98.1 73 18 122/53 97 Room Air 09/15/16 11:00 87 20 129/55 98 Room Air 09/15/16 10:00 88 17 125/62 97 Room Air 09/15/16 09:00 78 16 166/84 99 Room Air 09/15/16 08:00 98.0 76 18 160/75 98 Room Air 09/15/16 08:00 75 09/15/16 07:00 72 16 139/70 98 Room Air 09/15/16 06:00 75 19 150/69 96 Room Air 09/15/16 05:00 98.3 74 18 141/59 97 Room Air 09/15/16 04:00 74 09/15/16 04:00 72 19 164/69 96 Room Air 09/15/16 03:00 73 19 142/63 98 Room Air 09/15/16 02:00 75 17 142/63 97 Room Air 09/15/16 01:00 79 18 144/72 97 Room Air 09/15/16 00:00 97.8 68 18 127/86 96 Room Air 09/15/16 00:00 85 09/14/16 23:00 81 18 142/72 94 Room Air 09/14/16 22:00 83 24 147/85 96 Room Air 09/14/16 21:57 95 21 09/14/16 21:00 85 22 131/113 96 Room Air 09/14/16 20:00 85 09/14/16 20:00 97.9 87 20 127/61 95 Room Air 09/14/16 19:00 86 18 117/58 96 Room Air 09/14/16 18:16 96 21 09/14/16 18:00 88 24 126/70 96 Room Air 09/14/16 17:00 81 19 95/73 98 Room Air 09/14/16 16:00 74 09/14/16 16:00 97.8 75 18 128/60 96 Room Air 09/14/16 15:00 119/59 Room Air 09/14/16 14:00 19 129/55 94 Room Air 09/14/16 13:00 86 19 120/43 94 Room Air 09/14/16 12:00 98.2 94 21 118/59 97 Room Air 09/14/16 12:00 94 09/14/16 11:00 95 19 105/59 93 Room Air 09/14/16 10:00 90 22 117/62 95 Room Air 09/14/16 09:00 75 17 153/72 96 Room Air 09/14/16 08:00 97.9 78 19 153/72 94 Room Air 09/14/16 08:00 96 21 09/14/16 08:00 80 09/14/16 07:00 79 22 130/87 98 Room Air 09/14/16 06:00 68 21 135/65 95 Room Air 09/14/16 05:00 69 16 144/65 94 Room Air 09/14/16 04:00 98.4 71 16 137/64 96 Room Air 09/14/16 04:00 78 09/14/16 03:00 79 21 160/65 94 Room Air 09/14/16 02:00 74 19 137/65 99 Room Air 09/14/16 01:00 83 19 147/68 95 Room Air 09/14/16 00:00 98.6 135/123 98 Room Air 09/14/16 00:00 85 09/13/16 23:00 92 26 142/72 97 Room Air 09/13/16 22:00 92 20 155/73 96 Room Air 09/13/16 21:00 98 21 159/79 95 Room Air 09/13/16 20:00 96 09/13/16 20:00 98 26 146/68 97 Room Air 09/13/16 19:00 98.4 95 24 145/65 94 Room Air 09/13/16 18:45 96 24 167/64 95 09/13/16 18:30 94 25 153/68 95 09/13/16 18:15 88 22 157/126 96 09/13/16 18:00 100 25 162/81 95 Room Air 09/13/16 17:45 102 25 142/79 99 09/13/16 17:30 110 20 193/90 97 09/13/16 17:15 183/98 09/13/16 17:00 106 30 168/66 97 Room Air 09/13/16 16:45 105 31 161/67 99 09/13/16 16:30 102 27 148/61 97 Room Air 09/13/16 16:15 90 28 167/90 96 Room Air 09/13/16 16:00 114 09/13/16 16:00 98.6 92 181/91 96 Room Air 09/13/16 15:45 94 177/87 97 Room Air Vital Signs Date Time Temp Pulse Resp B/P Pulse Ox O2 Delivery O2 Flow Rate FiO2 09/16/16 09:00 97.6 83 18 143/65 95 Room Air 09/14/16 21:57 21 Intake and Output 09/15/16 09/15/16 09/16/16 15:00 23:00 07:00 Intake Total 1280 ml 220 ml 1600 ml Output Total 960 ml 690 ml 1400 ml Balance 320 ml -470 ml 200 ml Exam Constitutional: alert, obese, oriented Respiratory: clear to auscultation, normal air movement Cardiovascular: nl pulses, regular rate and rhythm, No edema, No murmurs/extra sounds, No rub Gastrointestinal: bowel sounds, nl liver, spleen, non-tender, soft, No mass, No rebound or guarding Musculoskeletal: nl extremities to inspection Extremities: normal pulses, No clubbing, No cyanosis, No edema 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, nl mental status, nl speech, nl strength Additional Comments Bedside Glucose - 72 Hours Test 09/13/16 16:08 09/13/16 17:11 09/13/16 18:21 09/13/16 19:10 Bedside Glucose 306mg/dL (70-220) H 286mg/dL (70-220) H 274mg/dL (70-220) H 205mg/dL (70-220) Test 09/13/16 20:03 09/13/16 21:16 09/13/16 22:07 09/13/16 23:01 Bedside Glucose 165mg/dL (70-220) 138mg/dL (70-220) 136mg/dL (70-220) 140mg/dL (70-220) Test 09/14/16 00:08 09/14/16 01:05 09/14/16 02:06 09/14/16 03:15 Bedside Glucose 113mg/dL (70-220) 120mg/dL (70-220) 145mg/dL (70-220) 150mg/dL (70-220) Test 09/14/16 04:26 09/14/16 05:07 09/14/16 06:06 09/14/16 07:02 Bedside Glucose 129mg/dL (70-220) 123mg/dL (70-220) 103mg/dL (70-220) 131mg/dL (70-220) Test 09/14/16 08:11 09/14/16 09:03 09/14/16 10:07 09/14/16 11:05 Bedside Glucose 119mg/dL (70-220) 102mg/dL (70-220) 131mg/dL (70-220) 166mg/dL (70-220) Test 09/14/16 12:05 09/14/16 13:00 09/14/16 14:12 09/14/16 15:05 Bedside Glucose 162mg/dL (70-220) 115mg/dL (70-220) 103mg/dL (70-220) 104mg/dL (70-220) Test 09/14/16 16:06 09/14/16 18:01 09/14/16 19:09 09/14/16 20:21 Bedside Glucose 102mg/dL (70-220) 159mg/dL (70-220) 137mg/dL (70-220) 137mg/dL (70-220) Test 09/14/16 21:58 09/15/16 00:21 09/15/16 01:53 09/15/16 04:40 Bedside Glucose 119mg/dL (70-220) 122mg/dL (70-220) 105mg/dL (70-220) 163mg/dL (70-220) Test 09/15/16 05:56 09/15/16 06:53 09/15/16 08:03 09/15/16 09:02 Bedside Glucose 137mg/dL (70-220) 142mg/dL (70-220) 123mg/dL (70-220) 98mg/dL (70-220) Test 09/15/16 12:04 09/15/16 17:26 09/15/16 20:23 09/16/16 08:27 Bedside Glucose 186mg/dL (70-220) 91mg/dL (70-220) 78mg/dL (70-220) 222mg/dL (70-220) H Test 09/16/16 12:28 Bedside Glucose 261mg/dL (70-220) H Results Result Diagram: 09/14/16 0428 09/16/16 0820 Results 24 hrs Laboratory Tests Test 09/15/16 17:26 09/15/16 17:35 09/15/16 20:23 09/16/16 00:39 Bedside Glucose 91 78 Sodium Level 139 134 L Potassium Level 4.0 4.2 Chloride Level 104 108 Carbon Dioxide Level 21 21 Anion Gap 18 H 9 # Blood Urea Nitrogen 31 H 30 H Creatinine 0.93 0.90 Glucose Level 102 # 166 Calcium Level 9.1 8.7 Test 09/16/16 08:20 09/16/16 08:27 09/16/16 12:28 Sodium Level 138 Potassium Level 4.3 Chloride Level 105 Carbon Dioxide Level 22 Anion Gap 15 Blood Urea Nitrogen 28 H Creatinine 0.90 Glucose Level 226 H Calcium Level 9.2 Bedside Glucose 222 H 261 H Medications Medications Current Medications Ondansetron HCl (Zofran Inj) 4 mg Q6H PRN IV NAUSEA AND/OR VOMITING; Start at 17:00 Acetaminophen (Tylenol Tab) 650 mg Q6H PRN PO PAIN LEVEL 1-3 OR FEVER Last administered on 09/11/16 18:01; Admin Dose 650 MG; Start 09/05/16 at 17:00 Acetaminophen/ Hydrocodone Bitart ([place] (5/325)) 1 tab Q6H PRN PO MODERATE PAIN LEVEL 4-6; Start 09/05/16 at 17:00 Morphine Sulfate (morphine) 2 mg Q4H PRN IV SEVERE PAIN LEVEL 7-10 Last administered on 09/15/16 17:28; Admin Dose 2 MG; Start 09/05/16 at 17:00 Docusate Sodium (Colace) 100 mg Q12H PRN PO CONSTIPATION; Start 09/05/16 at 17: 00 Magnesium Hydroxide (Milk Of Mag) 30 ml DAILY PRN PO CONSTIPATION Last administered on 09/16/16 06:29; Admin Dose 30 ML; Start 09/05/16 at 17:00 Sodium Biphosphate/ Sodium Phosphate (Fleet Enema) 133 ml DAILY PRN [place] CONSTIPATION; Start 09/05/16 at 17:00 Heparin Sodium (Porcine) (Heparin (5000 Units/0.5 ml)) 5,000 unit Q12 SC Last administered on 09/16/16 08:32; Admin Dose 5,000 UNIT; Start 09/05/16 at 21:00 Lorazepam (Ativan) 0.5 mg Q6H PRN IV ANXIETY; Start 09/05/16 at 17:00 Hydralazine HCl (Apresoline) 10 mg Q6H PRN IV ELEVATED BLOOD PRESSURE Last administered on 09/13/16 16:16; Admin Dose 10 MG; Start 09/05/16 at 17:00 Nitroglycerin (Nitroglycerin (Sl Tab) 0.4 Mg) 1 tab Q5M PRN SL ANGINA; Start at 17:00 Aspirin (Halfprin) 81 mg DAILY PO Last administered on 09/16/16 08:35; Admin Dose 81 MG; Start 09/06/16 at 09:00 Clopidogrel Bisulfate (plaVIX) 75 mg DAILY PO Last administered on 09/16/16 08 :35; Admin Dose 75 MG; Start 09/06/16 at 09:00 Cyclosporine (Restasis) 1 drop Q12 BOTH EYES Last administered on 09/16/16 08: 34; Admin Dose 1 DROP; Start 09/05/16 at 21:00 Docusate Sodium (Colace) 100 mg DAILY PO Last administered on 09/16/16 08:35; Admin Dose 100 MG; Start 09/06/16 at 09:00 Ergocalciferol (Drisdol) 50,000 unit Q7D PO Last administered on 09/14/16 09:40 ; Admin Dose 50,000 UNIT; Start 09/07/16 at 09:00 Famotidine (Pepcid) 40 mg DAILY PO Last administered on 09/16/16 08:35; Admin Dose 40 MG; Start 09/06/16 at 09:00 Gabapentin (Neurontin) 100 mg BID PO Last administered on 09/16/16 08:35; Admin Dose 100 MG; Start 09/05/16 at 21:00 Isosorbide Dinitrate (Isordil) 30 mg DAILY PO Last administered on 09/16/16 08 :35; Admin Dose 30 MG; Start 09/06/16 at 09:00 Methimazole (Tapazole) 5 mg DAILY PO Last administered on 09/16/16 08:36; Admin Dose 5 MG; Start 09/06/16 at 09:00 Solifenacin (Vesicare) 5 mg DAILY PO Last administered on 09/16/16 08:36; Admin Dose 5 MG; Start 09/06/16 at 09:00 Triamcinolone Acetonide (Kenalog 0.5% Cr) 1 applic DAILY TOP Last administered on 09/16/16 08:37; Admin Dose 1 APPLIC; Start 09/06/16 at 09:00 Fish Oil (Fish Oil) 1,000 mg BID PO Last administered on 09/16/16 08:35; Admin Dose 1,000 MG; Start 09/08/16 at 09:00 Olopatadine HCl (Patanol 0.1% Oph) 1 drop BID BOTH EYES Last administered on 08:34; Admin Dose 1 DROP; Start 09/08/16 at 09:00 Atorvastatin Calcium (Lipitor) 80 mg DAILY@21 PO Last administered on 20:21; Admin Dose 80 MG; Start 09/05/16 at 21:00 Ibuprofen 400 mg 400 mg TID PRN PO MODERATE PAIN LEVEL 4-6; Start 09/09/16 at 10 :00 Sodium Chloride (1/2 NS) 1,000 ml @ 100 mls/hr Q10H IV Last administered on 13:00; Admin Dose 100 MLS/HR; Start 09/13/16 at 15:00 Metoprolol Succinate (Toprol Xl) 50 mg BID PO Last administered on 09/16/16 08 :36; Admin Dose 50 MG; Start 09/14/16 at 21:00 Lisinopril (Zestril) 20 mg DAILY PO Last administered on 09/16/16 08:36; Admin Dose 20 MG; Start 09/14/16 at 09:00 Hydralazine HCl (Apresoline) 25 mg DAILY PO Last administered on 09/16/16 08: 34; Admin Dose 25 MG; Start 09/14/16 at 09:00 Insulin Glargine (Lantus) 60 unit DAILY@08 SC Last administered on 09/16/16 08 :31; Admin Dose 60 UNIT; Start 09/15/16 at 08:00 Miscellaneous Information 1 ea NOTE XX ; Start 09/15/16 at 07:00 Glucose (Glutose) 15 gm Q15M PRN PO DECREASED GLUCOSE; Start 09/15/16 at 07:00 Glucose (Glutose) 22.5 gm Q15M PRN PO DECREASED GLUCOSE; Start 09/15/16 at 07: 00 Dextrose (D50w Syringe) 25 ml Q15M PRN IV DECREASED GLUCOSE; Start 09/15/16 at 07:00 Dextrose (D50w Syringe) 50 ml Q15M PRN IV DECREASED GLUCOSE; Start 09/15/16 at 07:00 Glucagon (Glucagen) 1 mg Q15M PRN IM DECREASED GLUCOSE; Start 09/15/16 at 07:00 Glucose (Glutose) 15 gm Q15M PRN BUCCAL DECREASED GLUCOSE; Start 09/15/16 at 07 :00 Diagnostic Test (Pha) (Accu-Chek) 1 ea 02 XX ; Start 09/17/16 at 02:00 Linagliptin (Tradjenta) 5 mg DAILY PO Last administered on 4/11/17at 15:23; Admin Dose 5 MG; Start 09/16/16 at 14:30 ZAINAB NAVA MD Sep 16, 2016 15:44
--- NOTE | 2016-09-16 16:20 | PN ---
Date/Time of Note Date/Time of Note DATE: 09/16/16 TIME: 16:20 Assessment/Plan VTE Prophylaxis VTE Prophylaxis Intervention: heparin Lines/Catheters IV Catheter Type (from Nrsg): Saline Lock Assessment/Plan Chief Complaint/Hosp Course 1. Pain due to shingles, improved. 2. Nausea and vomiting and dehydration, improved with treatment. 3. Right knee cellulitis with knee pain, improved following steroid injection. 4. Hypertension, controlled. 5. Diabetes mellitus, improved with IV insulin -DC Insulin gtt and start SubQ -Endo following 6. Dyslipidemia. 7. Status post recent transient ischemic attack Dispo- DC to SNF vs Home with HH PPx- Heparin Problems: Subjective 24 Hr Interval Summary Constitutional: no complaints Exam/Review of Systems Vital Signs Vitals Vital Signs Date Time Temp Pulse Resp B/P Pulse Ox O2 Delivery O2 Flow Rate FiO2 09/16/16 09:00 97.6 83 18 143/65 95 Room Air 09/14/16 21:57 21 Intake and Output 09/15/16 09/15/16 09/16/16 15:00 23:00 07:00 Intake Total 1280 ml 220 ml 1600 ml Output Total 960 ml 690 ml 1400 ml Balance 320 ml -470 ml 200 ml Exam Constitutional: alert Respiratory: clear to auscultation Cardiovascular: regular rate and rhythm Gastrointestinal: soft, No distended Musculoskeletal: nl extremities to inspection Results Result Diagram: 09/14/16 0428 09/16/16 0820 Results 24 hrs Laboratory Tests Test 09/15/16 17:26 09/15/16 17:35 09/15/16 20:23 09/16/16 00:39 Bedside Glucose 91 78 Sodium Level 139 134 L Potassium Level 4.0 4.2 Chloride Level 104 108 Carbon Dioxide Level 21 21 Anion Gap 18 H 9 # Blood Urea Nitrogen 31 H 30 H Creatinine 0.93 0.90 Glucose Level 102 # 166 Calcium Level 9.1 8.7 Test 09/16/16 08:20 09/16/16 08:27 09/16/16 12:28 Sodium Level 138 Potassium Level 4.3 Chloride Level 105 Carbon Dioxide Level 22 Anion Gap 15 Blood Urea Nitrogen 28 H Creatinine 0.90 Glucose Level 226 H Calcium Level 9.2 Bedside Glucose 222 H 261 H Medications Medications Current Medications Ondansetron HCl (Zofran Inj) 4 mg Q6H PRN IV NAUSEA AND/OR VOMITING; Start 3/ 31/17 at 17:00 Acetaminophen (Tylenol Tab) 650 mg Q6H PRN PO PAIN LEVEL 1-3 OR FEVER Last administered on 09/11/16 18:01; Admin Dose 650 MG; Start 09/05/16 at 17:00 Acetaminophen/ Hydrocodone Bitart ([place] (5/325)) 1 tab Q6H PRN PO MODERATE PAIN LEVEL 4-6; Start 09/05/16 at 17:00 Morphine Sulfate (morphine) 2 mg Q4H PRN IV SEVERE PAIN LEVEL 7-10 Last administered on 09/15/16 17:28; Admin Dose 2 MG; Start 09/05/16 at 17:00 Docusate Sodium (Colace) 100 mg Q12H PRN PO CONSTIPATION; Start 09/05/16 at 17: 00 Magnesium Hydroxide (Milk Of Mag) 30 ml DAILY PRN PO CONSTIPATION Last administered on 09/16/16 06:29; Admin Dose 30 ML; Start 09/05/16 at 17:00 Sodium Biphosphate/ Sodium Phosphate (Fleet Enema) 133 ml DAILY PRN [place] CONSTIPATION; Start 09/05/16 at 17:00 Heparin Sodium (Porcine) (Heparin (5000 Units/0.5 ml)) 5,000 unit Q12 SC Last administered on 09/16/16 08:32; Admin Dose 5,000 UNIT; Start 09/05/16 at 21:00 Lorazepam (Ativan) 0.5 mg Q6H PRN IV ANXIETY; Start 09/05/16 at 17:00 Hydralazine HCl (Apresoline) 10 mg Q6H PRN IV ELEVATED BLOOD PRESSURE Last administered on 09/13/16 16:16; Admin Dose 10 MG; Start 09/05/16 at 17:00 Nitroglycerin (Nitroglycerin (Sl Tab) 0.4 Mg) 1 tab Q5M PRN SL ANGINA; Start at 17:00 Aspirin (Halfprin) 81 mg DAILY PO Last administered on 09/16/16 08:35; Admin Dose 81 MG; Start 09/06/16 at 09:00 Clopidogrel Bisulfate (plaVIX) 75 mg DAILY PO Last administered on 09/16/16 08 :35; Admin Dose 75 MG; Start 09/06/16 at 09:00 Cyclosporine (Restasis) 1 drop Q12 BOTH EYES Last administered on 09/16/16 08: 34; Admin Dose 1 DROP; Start 09/05/16 at 21:00 Docusate Sodium (Colace) 100 mg DAILY PO Last administered on 09/16/16 08:35; Admin Dose 100 MG; Start 09/06/16 at 09:00 Ergocalciferol (Drisdol) 50,000 unit Q7D PO Last administered on 09/14/16 09:40 ; Admin Dose 50,000 UNIT; Start 09/07/16 at 09:00 Famotidine (Pepcid) 40 mg DAILY PO Last administered on 09/16/16 08:35; Admin Dose 40 MG; Start 09/06/16 at 09:00 Gabapentin (Neurontin) 100 mg BID PO Last administered on 09/16/16 08:35; Admin Dose 100 MG; Start 09/05/16 at 21:00 Isosorbide Dinitrate (Isordil) 30 mg DAILY PO Last administered on 09/16/16 08 :35; Admin Dose 30 MG; Start 09/06/16 at 09:00 Methimazole (Tapazole) 5 mg DAILY PO Last administered on 09/16/16 08:36; Admin Dose 5 MG; Start 09/06/16 at 09:00 Solifenacin (Vesicare) 5 mg DAILY PO Last administered on 09/16/16 08:36; Admin Dose 5 MG; Start 09/06/16 at 09:00 Triamcinolone Acetonide (Kenalog 0.5% Cr) 1 applic DAILY TOP Last administered on 09/16/16 08:37; Admin Dose 1 APPLIC; Start 09/06/16 at 09:00 Fish Oil (Fish Oil) 1,000 mg BID PO Last administered on 09/16/16 08:35; Admin Dose 1,000 MG; Start 09/08/16 at 09:00 Olopatadine HCl (Patanol 0.1% Oph) 1 drop BID BOTH EYES Last administered on 08:34; Admin Dose 1 DROP; Start 09/08/16 at 09:00 Atorvastatin Calcium (Lipitor) 80 mg DAILY@21 PO Last administered on 20:21; Admin Dose 80 MG; Start 09/05/16 at 21:00 Ibuprofen 400 mg 400 mg TID PRN PO MODERATE PAIN LEVEL 4-6; Start 09/09/16 at 10 :00 Sodium Chloride (1/2 NS) 1,000 ml @ 100 mls/hr Q10H IV Last administered on 13:00; Admin Dose 100 MLS/HR; Start 09/13/16 at 15:00 Metoprolol Succinate (Toprol Xl) 50 mg BID PO Last administered on 09/16/16 08 :36; Admin Dose 50 MG; Start 09/14/16 at 21:00 Lisinopril (Zestril) 20 mg DAILY PO Last administered on 09/16/16 08:36; Admin Dose 20 MG; Start 09/14/16 at 09:00 Hydralazine HCl (Apresoline) 25 mg DAILY PO Last administered on 09/16/16 08: 34; Admin Dose 25 MG; Start 09/14/16 at 09:00 Insulin Glargine (Lantus) 60 unit DAILY@08 SC Last administered on 09/16/16 08 :31; Admin Dose 60 UNIT; Start 09/15/16 at 08:00 Miscellaneous Information 1 ea NOTE XX ; Start 09/15/16 at 07:00 Glucose (Glutose) 15 gm Q15M PRN PO DECREASED GLUCOSE; Start 09/15/16 at 07:00 Glucose (Glutose) 22.5 gm Q15M PRN PO DECREASED GLUCOSE; Start 09/15/16 at 07: 00 Dextrose (D50w Syringe) 25 ml Q15M PRN IV DECREASED GLUCOSE; Start 09/15/16 at 07:00 Dextrose (D50w Syringe) 50 ml Q15M PRN IV DECREASED GLUCOSE; Start 09/15/16 at 07:00 Glucagon (Glucagen) 1 mg Q15M PRN IM DECREASED GLUCOSE; Start 09/15/16 at 07:00 Glucose (Glutose) 15 gm Q15M PRN BUCCAL DECREASED GLUCOSE; Start 09/15/16 at 07 :00 Diagnostic Test (Pha) (Accu-Chek) 1 ea 02 XX ; Start 09/17/16 at 02:00 Linagliptin (Tradjenta) 5 mg DAILY PO Last administered on 09/16/16 15:23; Admin Dose 5 MG; Start 09/16/16 at 14:30 VIDAL TEMPLETON Sep 16, 2016 16:20
[2016-09-16 18:40] LABS: CALCIUM 9.3 mg/dl (8.4-10.2); CREATININE 0.99 mg/dl (0.44-1.00); POTASSIUM 4.7 mmol/L (3.5-5.1)
[2016-09-16 19:55] VITALS: BP 132/63; RESP 18
[2016-09-16] MEDS: ATORVASTATIN 80 MG TAB PO SCH (20:45)
[2016-09-17] MEDS ORDERED: ACCU-CHEK XX SCH (02:00)
[2016-09-17] MEDS: MAGNESIUM HYDROXIDE 30ML CUP PO PRN (05:37)
[2016-09-17 08:05] VITALS: BP 147/76; RESP 17
[2016-09-17] MEDS: ISOSORBIDE DINITRATE 10 MG TAB PO SCH (09:04)
[2016-09-17] MEDS: CLOPIDOGREL 75 MG TAB PO SCH (09:05)
[2016-09-17] MEDS: LISINOPRIL 20 MG TAB PO SCH (09:05)
[2016-09-17] MEDS: FISH OIL 1,000 MG CAP PO SCH (09:05)
[2016-09-17] MEDS: DOCUSATE SODIUM 100 MG CAP PO SCH (09:05)
[2016-09-17] MEDS: SOLIFENACIN 5 MG TAB PO SCH (09:05)
[2016-09-17] MEDS: INSULIN ASPART [NOVOLOG] 3 ML PEN SC SCH ×4 (09:06→12:44)
[2016-09-17] MEDS: HEPARIN 5,000 UNIT/0.5 ML VIAL SC SCH (09:08)
[2016-09-17] MEDS: INSULIN GLARGINE [LANtus] 3 ML PEN SC SCH (09:08)
[2016-09-17] MEDS: FAMOTIDINE 20 MG TAB PO SCH (09:12)
[2016-09-17] MEDS: ASPIRIN (EC) 81 MG TAB PO SCH (09:13)
[2016-09-17] MEDS: LINAGLIPTIN 5 MG TABLET PO SCH (09:13)
[2016-09-17] MEDS: METOPROLOL (XL) 50 MG TAB PO SCH (09:13)
[2016-09-17] MEDS: GABAPENTIN 100 MG CAP PO SCH (09:13)
[2016-09-17] MEDS: OLOPATADINE 0.1% 5 ML OPH BOTH EYES SCH (09:13)
[2016-09-17] MEDS: METHIMAZOLE 5 MG TAB PO SCH (09:13)
[2016-09-17] MEDS: CYCLOSPORINE 0.05% OPH DROPERETTE BOTH EYES SCH (09:14)
[2016-09-17] MEDS: TRIAMCINOLONE ACET 0.5% 15 GM CR TOP SCH (09:15)
[2016-09-17] MEDS: SOD CHLORIDE 0.45% 1,000 ML IV SCH (09:57)
[2016-09-17] MEDS ORDERED: NOVO3I SC (11:19)
[2016-09-17] MEDS ORDERED: METO50TA16 PO (11:37)
[2016-09-17] MEDS ORDERED: NIT4 SL (11:37)
[2016-09-17] MEDS ORDERED: LISI40TA9 PO (11:37)
[2016-09-17] MEDS ORDERED: CIPR500T4 PO (11:48)
--- NOTE | 2016-09-17 14:12 | DS ---
DATE OF ADMISSION: 09/05/2016 DATE OF DISCHARGE: 09/17/2016 DISCHARGE DIAGNOSES: 1. Shingles, now resolved. 2. Dehydration secondary to nausea and vomiting, resolved. 3. Right knee pain, improved with steroid injection. 4. Hypertension, stable. 5. Diabetes, stable. There was following during hospitalization. Alterations to insulin regimen h ave been made. 6. History of transient ischemic attack, stable. 7. Debility. Discharge to SNF for PT. HOSPITAL COURSE: The patient is a 76-year-old female with history of hypertension, dyslipidemia, re cent TIA, shingles. The patient presented with nausea and vomiting. She was diagnosed with TIA and shingles on admission. The patient was having difficulty ambulating. The patient's nausea and vom iting did resolve. The patient was seen by endocrinology for insulin management. The patient's sug ars were ultimately better controlled. The patient was very debilitated and having a hard time ambu lating; hence, it was felt appropriate to place the patient in a snf facility. On the d ay of discharge, the patient's vitals, labs, and physical examination were stable. She had no acute complaints. Questions were answered. CONDITION ON DISCHARGE: Stable. DISPOSITION: SNF. MEDICATIONS: The patient is to continue usual home medications, but she was to stop taking 1. Acyclovir. 2. NovoLog 10 with meals. 3. Metoprolol XL 50 daily. 4. Ramipril. The patient was given new medications: 5. Cipro 500 mg p.o. b.i.d. for 3 days for the UTI. 6. NovoLog 18 with meals. 7. Lisinopril 40 daily. 8. Metoprolol XL 50 mg p.o. b.i.d. 9. Nitrostat p.r.n. Once again, the patient is to continue other home medications. FOLLOWUP: The patient is to follow up with physicians at the snf facility. Greater than 30 minutes was spent coordinating discharge of patient. Dictated By: VIDAL MORGAN/NTS Conf#: [id number] DID#: [id number]
--- NOTE | 2016-09-17 15:52 | CONS ---
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 However primary team planning to d/c pt. today to SNF. Would continue current insulin orders. Would d/c outpatient glimepiride. Would change tradjenta to previous janumet pt. was taking and metformin will give pt. O/N control she has been requiring. Consultation Date/Type/Reason Admit Date/Time Sep 05, 2016 at 15:41 Initial Consult Date 09/13/16 Type of Consultation: Endocrine Reason for Consultation T2DM OOC Referring Provider: SOCORRO GARBER MD, [facility] 24 HR Interval Summary Constitutional: no complaints Exam/Review of Systems Vital Signs Vitals VS - Last 72 Hours, by Label Date Time Temp Pulse Resp B/P Pulse Ox O2 Delivery O2 Flow Rate FiO2 09/17/16 08:05 97.8 89 17 147/76 98 09/16/16 19:55 98.4 91 18 132/63 94 09/16/16 09:00 97.6 83 18 143/65 95 Room Air 09/16/16 08:18 98.3 74 12 191/76 96 09/15/16 19:46 98.4 89 18 142/65 95 09/15/16 18:00 86 21 144/70 99 Room Air 09/15/16 17:00 82 21 157/71 100 Room Air 09/15/16 16:00 98.6 78 20 139/67 96 Room Air 09/15/16 16:00 79 09/15/16 15:00 80 20 135/62 96 Room Air 09/15/16 14:00 86 19 140/80 98 Room Air 09/15/16 13:00 81 20 128/52 97 Room Air 09/15/16 12:00 81 09/15/16 12:00 98.1 73 18 122/53 97 Room Air 09/15/16 11:00 87 20 129/55 98 Room Air 09/15/16 10:00 88 17 125/62 97 Room Air 09/15/16 09:00 78 16 166/84 99 Room Air 09/15/16 08:00 98.0 76 18 160/75 98 Room Air 09/15/16 08:00 75 09/15/16 07:00 72 16 139/70 98 Room Air 09/15/16 06:00 75 19 150/69 96 Room Air 09/15/16 05:00 98.3 74 18 141/59 97 Room Air 09/15/16 04:00 74 09/15/16 04:00 72 19 164/69 96 Room Air 09/15/16 03:00 73 19 142/63 98 Room Air 09/15/16 02:00 75 17 142/63 97 Room Air 09/15/16 01:00 79 18 144/72 97 Room Air 09/15/16 00:00 97.8 68 18 127/86 96 Room Air 09/15/16 00:00 85 09/14/16 23:00 81 18 142/72 94 Room Air 09/14/16 22:00 83 24 147/85 96 Room Air 09/14/16 21:57 95 21 09/14/16 21:00 85 22 131/113 96 Room Air 09/14/16 20:00 85 09/14/16 20:00 97.9 87 20 127/61 95 Room Air 09/14/16 19:00 86 18 117/58 96 Room Air 09/14/16 18:16 96 21 09/14/16 18:00 88 24 126/70 96 Room Air 09/14/16 17:00 81 19 95/73 98 Room Air 09/14/16 16:00 74 09/14/16 16:00 97.8 75 18 128/60 96 Room Air Vital Signs Date Time Temp Pulse Resp B/P Pulse Ox O2 Delivery O2 Flow Rate FiO2 09/17/16 08:05 97.8 89 17 147/76 98 09/16/16 09:00 Room Air 09/14/16 21:57 21 Intake and Output 09/16/16 09/16/16 09/17/16 15:00 23:00 07:00 Intake Total 800 ml 1840 ml 400 ml Output Total 1700 ml 1900 ml Balance 800 ml 140 ml -1500 ml Exam Constitutional: alert, obese, oriented Psych: nl mood/affect, no complaints Respiratory: clear to auscultation, normal air movement Cardiovascular: nl pulses, regular rate and rhythm, No edema, No murmurs/extra sounds, No rub Gastrointestinal: bowel sounds, nl liver, spleen, non-tender, soft, No mass, No rebound or guarding Musculoskeletal: nl extremities to inspection Extremities: normal pulses, No clubbing, No cyanosis, No edema 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: STORE ADMINISTRATOR II-XII intact, nl mental status, nl speech, nl strength Results Result Diagram: 09/14/16 0428 09/16/16 1810 Results 24 hrs Laboratory Tests Test 09/16/16 17:45 09/16/16 18:10 09/16/16 20:42 09/17/16 04:13 Bedside Glucose 117 131 149 Sodium Level 137 Potassium Level 4.7 Chloride Level 108 Carbon Dioxide Level 22 Anion Gap 12 Blood Urea Nitrogen 30 H Creatinine 0.99 Glucose Level 126 # Calcium Level 9.3 Test 09/17/16 09:00 09/17/16 12:40 Bedside Glucose 222 H 129 Medications Medications Current Medications Ondansetron HCl (Zofran Inj) 4 mg Q6H PRN IV NAUSEA AND/OR VOMITING; Start at 17:00 Acetaminophen (Tylenol Tab) 650 mg Q6H PRN PO PAIN LEVEL 1-3 OR FEVER Last administered on 09/11/16 18:01; Admin Dose 650 MG; Start 09/05/16 at 17:00 Acetaminophen/ Hydrocodone Bitart ([place] (5/325)) 1 tab Q6H PRN PO MODERATE PAIN LEVEL 4-6; Start 09/05/16 at 17:00 Morphine Sulfate (morphine) 2 mg Q4H PRN IV SEVERE PAIN LEVEL 7-10 Last administered on 09/15/16 17:28; Admin Dose 2 MG; Start 09/05/16 at 17:00 Docusate Sodium (Colace) 100 mg Q12H PRN PO CONSTIPATION; Start 09/05/16 at 17: 00 Magnesium Hydroxide (Milk Of Mag) 30 ml DAILY PRN PO CONSTIPATION Last administered on 09/17/16 05:37; Admin Dose 30 ML; Start 09/05/16 at 17:00 Sodium Biphosphate/ Sodium Phosphate (Fleet Enema) 133 ml DAILY PRN OR CONSTIPATION; Start 09/05/16 at 17:00 Heparin Sodium (Porcine) (Heparin (5000 Units/0.5 ml)) 5,000 unit Q12 SC Last administered on 09/17/16 09:08; Admin Dose 5,000 UNIT; Start 09/05/16 at 21:00 Lorazepam (Ativan) 0.5 mg Q6H PRN IV ANXIETY; Start 09/05/16 at 17:00 Hydralazine HCl (Apresoline) 10 mg Q6H PRN IV ELEVATED BLOOD PRESSURE Last administered on 09/13/16 16:16; Admin Dose 10 MG; Start 09/05/16 at 17:00 Nitroglycerin (Nitroglycerin (Sl Tab) 0.4 Mg) 1 tab Q5M PRN SL ANGINA; Start at 17:00 Aspirin (Halfprin) 81 mg DAILY PO Last administered on 09/17/16 09:13; Admin Dose 81 MG; Start 09/06/16 at 09:00 Clopidogrel Bisulfate (plaVIX) 75 mg DAILY PO Last administered on 09/17/16 09 :05; Admin Dose 75 MG; Start 09/06/16 at 09:00 Cyclosporine (Restasis) 1 drop Q12 BOTH EYES Last administered on 09/17/16 09: 14; Admin Dose 1 DROP; Start 09/05/16 at 21:00 Docusate Sodium (Colace) 100 mg DAILY PO Last administered on 09/17/16 09:05; Admin Dose 100 MG; Start 09/06/16 at 09:00 Ergocalciferol (Drisdol) 50,000 unit Q7D PO Last administered on 09/14/16 09:40 ; Admin Dose 50,000 UNIT; Start 09/07/16 at 09:00 Famotidine (Pepcid) 40 mg DAILY PO Last administered on 09/17/16 09:12; Admin Dose 40 MG; Start 09/06/16 at 09:00 Gabapentin (Neurontin) 100 mg BID PO Last administered on 09/17/16 09:13; Admin Dose 100 MG; Start 09/05/16 at 21:00 Isosorbide Dinitrate (Isordil) 30 mg DAILY PO Last administered on 09/17/16 09 :04; Admin Dose 30 MG; Start 09/06/16 at 09:00 Methimazole (Tapazole) 5 mg DAILY PO Last administered on 09/17/16 09:13; Admin Dose 5 MG; Start 09/06/16 at 09:00 Solifenacin (Vesicare) 5 mg DAILY PO Last administered on 09/17/16 09:05; Admin Dose 5 MG; Start 09/06/16 at 09:00 Triamcinolone Acetonide (Kenalog 0.5% Cr) 1 applic DAILY TOP Last administered on 09/17/16 09:15; Admin Dose 1 APPLIC; Start 09/06/16 at 09:00 Fish Oil (Fish Oil) 1,000 mg BID PO Last administered on 09/17/16 09:05; Admin Dose 1,000 MG; Start 09/08/16 at 09:00 Olopatadine HCl (Patanol 0.1% Oph) 1 drop BID BOTH EYES Last administered on 09:13; Admin Dose 1 DROP; Start 09/08/16 at 09:00 Atorvastatin Calcium (Lipitor) 80 mg DAILY@21 PO Last administered on 20:45; Admin Dose 80 MG; Start 09/05/16 at 21:00 Ibuprofen 400 mg 400 mg TID PRN PO MODERATE PAIN LEVEL 4-6; Start 09/09/16 at 10 :00 Sodium Chloride (1/2 NS) 1,000 ml @ 100 mls/hr Q10H IV Last administered on 09:57; Admin Dose 100 MLS/HR; Start 09/13/16 at 15:00 Metoprolol Succinate (Toprol Xl) 50 mg BID PO Last administered on 09/17/16 09 :13; Admin Dose 50 MG; Start 09/14/16 at 21:00 Lisinopril (Zestril) 20 mg DAILY PO Last administered on 09/17/16 09:05; Admin Dose 20 MG; Start 09/14/16 at 09:00 Hydralazine HCl (Apresoline) 25 mg DAILY PO Last administered on 09/17/16 09: 57; Admin Dose 25 MG; Start 09/14/16 at 09:00 Insulin Glargine (Lantus) 60 unit DAILY@08 SC Last administered on 09/17/16 09 :08; Admin Dose 60 UNIT; Start 09/15/16 at 08:00 Miscellaneous Information 1 ea NOTE XX ; Start 09/15/16 at 07:00 Glucose (Glutose) 15 gm Q15M PRN PO DECREASED GLUCOSE; Start 09/15/16 at 07:00 Glucose (Glutose) 22.5 gm Q15M PRN PO DECREASED GLUCOSE; Start 09/15/16 at 07: 00 Dextrose (D50w Syringe) 25 ml Q15M PRN IV DECREASED GLUCOSE; Start 09/15/16 at 07:00 Dextrose (D50w Syringe) 50 ml Q15M PRN IV DECREASED GLUCOSE; Start 09/15/16 at 07:00 Glucagon (Glucagen) 1 mg Q15M PRN IM DECREASED GLUCOSE; Start 09/15/16 at 07:00 Glucose (Glutose) 15 gm Q15M PRN BUCCAL DECREASED GLUCOSE; Start 09/15/16 at 07 :00 Diagnostic Test (Pha) (Accu-Chek) 1 ea 02 XX ; Start 09/17/16 at 02:00 Linagliptin (Tradjenta) 5 mg DAILY PO Last administered on 09/17/16t 09:13; Admin Dose 5 MG; Start 09/16/16 at 14:30 ZAINAB NAVA MD Sep 17, 2016 15:52
== END 2016-09-17 16:30 | DRG 596 ==
LOC: E/R 13:02 → MS2 15:41 → ICU 09-13 14:02 → MS1 09-15 18:35
PROVIDERS: ADMIT Family Medicine; ATTEND Family Medicine
DX: B02.9 Zoster without complications (principal); E11.65 Type 2 diabetes mellitus with hyperglycemia; L03.115 Cellulitis of right lower limb; E86.0 Dehydration; E78.00 Pure hypercholesterolemia, unspecified; E66.9 Obesity, unspecified; I10 Essential (primary) hypertension; M17.11 Unilateral primary osteoarthritis, right knee; R53.1 Weakness; R11.2 Nausea with vomiting, unspecified; R26.2 Difficulty in walking, not elsewhere classified; Z68.34 Body mass index [BMI] 34.0-34.9, adult; Z86.73 Personal history of transient ischemic attack (TIA), and cerebral infarction without residual deficits; Z79.82 Long term (current) use of aspirin; Z79.02 Long term (current) use of antithrombotics/antiplatelets; Z79.84 Long term (current) use of oral hypoglycemic drugs; Z79.4 Long term (current) use of insulin
CPT/HCPCS: 36415; 71010; 73560; 73721; 80048; 80053; 80061; 81001; 81003; 82550; 82553; 82947; 82962; 83036; 83690; 83735; 84100; 84439; 84443; 84484; 84560; 85025; 85651; 86140; 87081; 87086; 93005; 96374; 96375; 97110; 97162; 97164; 97167; 97530; A4310; J0360; J0702; J1644; J1815; J1885; J2270; J2405; J3475; J3480; J7030; J7042

== ENCOUNTER 2016-09-21 12:36 | Inpatient (IN) | payer MEDICARE, OTHER ==
[~2016-09-21] VITALS: Ht 157.5 cm; Wt 86.7 kg
[~2016-09-21 12:36] MED LIST changes: -ACYC800T PO; +CIPR500T4 PO; -GLIM4TAB PO; +LISI40TA9 PO; +NIT4 SL; -RAMI5CAP46 PO
[2016-09-21] MEDS ORDERED: ASPIRIN 300 MG SUPP PR STA (12:43)
[2016-09-21] MEDS ORDERED: SOD CHLORIDE 0.9% 1,000 ML IV STA (12:43)
[2016-09-21 13:03] LABS: ADD SCAN DIFF NO
--- NOTE | 2016-09-21 13:04 | RADRPT ---
PROCEDURE: CT Brain without. CLINICAL INDICATION: 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 deficit. TECHNIQUE: A CT of the brain was performed on multidetector high-resolution CT scanner utilizing a xial sections from the skull base through the vertex without contrast. The scan was reviewed in sof t tissue brain and high frequency resolution bone algorithm windows. Images were reviewed on a high -resolution PACS workstation. One or more the following does reduction techniques were utilized: Aut omated exposure control, adjustment of the mA/ or kV according to patient's size, or use of iterativ e reconstruction technique. The exam CTDI = 45.0 mGy and the DLP = 720.23 mGy-cm. COMPARISON: Brain CT and MRI 08/29/2016. FINDINGS: The ventricles and sulci are moderately prominent indicative of volume loss. There is no intracrania l hemorrhage, mass effect or midline shift. No abnormal intra-axial or extra-axial fluid collection s are seen. Small scattered foci of subacute white matter infarcts are better seen on prior brain MR I 08/29/2016. Otherwise the pedro/white matter differentiation is preserved. There are moderate scattered foci of hypoattenuation in the periventricular, deep, and subcortical w davon matter, which are nonspecific in etiology but likely reflect chronic small vessel ischemic bryan ges. There are moderate intracranial vascular calcifications consistent with atherosclerosis. The v isualized paranasal sinuses are essentially clear. 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 IMPRESSION: 1. No acute intracranial hemorrhage, territorial transcortical infarction or mass effect. Please no te MRI is more sensitive for detection of acute ischemia and can be obtained as clinically warranted . 2. Small scattered foci of subacute white matter infarcts are better seen on prior brain MRI 2016. 3. Moderate intracranial atherosclerosis and chronic small vessel ischemic changes. 4. Moderate generalized cerebral volume loss. A call report was made and above findings were discussed and acknowledged by Frederick Adler 09/21/2016 12:54 PM . RPTAT: HH .Aster Leal MD, MD Date Time Electronically viewed and signed by .Aster Leal MD, on 09/21/2016 13:03 .N/
[2016-09-21 13:05] LABS: BASOPHILS % 0.2 % (0.0-2.0); EOSINOPHILS % 0.2 % (0.0-7.0); HEMATOCRIT 39.3 % (37.0-47.0); HEMOGLOBIN 12.1 g/dl (12.0-16.0); LYMPHOCYTES # 0.7 10^3/ul (0.8-2.9); LYMPHOCYTES % 4.4 % (15.0-51.0); MEAN CORPUSCULAR HEMOGLOBIN 28.1 pg (29.0-33.0); MEAN CORPUSCULAR HGB CONC 30.8 g/dl (32.0-37.0); MEAN CORPUSCULAR VOLUME 91.2 fl (82.0-101.0); MEAN PLATELET VOLUME 10.3 fl (7.4-10.4); MONOCYTE # 1.2 10^3/ul (0.3-0.9); NEUTROPHIL # 14.7 10^3/ul (1.6-7.5); NEUTROPHILS % 87.6 % (39.0-77.0); PLATELET COUNT 325 10^3/UL (140-415); RED BLOOD COUNT 4.31 10^6/ul (4.20-5.40); RED CELL DISTRIBUTION WIDTH 13.9 % (11.5-14.5); WHITE BLOOD COUNT 16.8 10^3/ul (4.8-10.8)
[2016-09-21 13:14] LABS: CHLORIDE 104 mmol/L (97-110); SODIUM 140 mmol/L (135-144)
[2016-09-21 13:17] LABS: CARBON DIOXIDE 22 mmol/L (21-31); CREATININE 3.52 mg/dl (0.44-1.00)
[2016-09-21 13:17] LABS: INR 0.96; PROTIME 12.8 Sec (12.2-14.2)
[2016-09-21 13:18] LABS: ANION GAP 20 (8-16); BLOOD UREA NITROGEN 87 mg/dl (7-20); CALCIUM 10.1 mg/dl (8.4-10.2); GLUCOSE 319 mg/dl (70-220); POTASSIUM 5.6 mmol/L (3.5-5.1)
[2016-09-21 13:32] LABS: TROPONIN-I < 0.012 ng/ml (0.00-0.12)
[2016-09-21 13:34] LABS: ADD UMIC YES; URINE BILIRUBIN (Dip) NEGATIVE (NEGATIVE); URINE BLOOD (Dip) 1+ (NEGATIVE); URINE COLOR LT. YELLOW (YELLOW); URINE GLUCOSE (Dip) NEGATIVE (NEGATIVE); URINE KETONES (Dip) NEGATIVE (NEGATIVE); URINE LEUKOCYTE ESTERASE (Dip) 2+ (NEGATIVE); URINE NITRITE (Dip) NEGATIVE (NEGATIVE); URINE TOTAL PROTEIN (Dip) NEGATIVE (NEGATIVE); URINE UROBILINOGEN (Dip) 0.2 E.U./dL (0.1-1.0)
[2016-09-21] MEDS ORDERED: DEXTROSE 50% 50 ML SYRINGE IV STA (13:37)
[2016-09-21 13:43] LABS: BACTERIA,URINE FEW; URINE RBCS 0-2 /HPF (0)
[2016-09-21 13:51] LABS: BARBITURATES Negative (NEGATIVE); BENZODIAZEPINES Negative (NEGATIVE); CANNABINOIDS Negative (NEGATIVE); COCAINE Negative (NEGATIVE); OPIATES Negative (NEGATIVE)
[2016-09-21] MEDS ORDERED: ENALAPRILAT 1.25 MG INJ IV ONE (14:00)
[2016-09-21] MEDS ORDERED: CEFTRIAXONE 1 GM/50 ML (PMX) 50 ML IVPB ONE (14:00)
[2016-09-21] MEDS ORDERED: INSULIN REGULAR 10 ML INJ IV ONE (14:00)
--- NOTE | 2016-09-21 14:18 | RADRPT ---
PROCEDURE: XR Chest. CLINICAL INDICATION: Shortness of breath. Cerebrovascular accident. TECHNIQUE: Single frontal view. COMPARISON: 09/05/2016. FINDINGS: The lungs are clear. The heart size is normal. There is calcification in the aorta consistent with atherosclerosis. There is no pleural effusion. There is no pneumothorax. IMPRESSION: 1. Atherosclerosis. 2. Otherwise normal chest radiograph. RPTAT: QQ .Donovan Sinha MD, MD Date Time Electronically viewed and signed by .Donovan Sinha MD, on 09/21/2016 14:18 .R/
--- NOTE | 2016-09-21 14:34 | ERA ---
ER Documentation Chief Complaint Date/Time DATE: 09/21/16 TIME: 14:28 Chief Complaint aloc since 1130 today per family, blood sugar 268 in field, silvio pinto HPI 76-year-old woman brought in by EMS from [facility] for slurred speech noticed by her son who is visiting her today. She was last seen and spoke normally yesterday afternoon when she spoke to her daughter over the phone. This morning about an hour prior to arrival her son visited her for Easter and told staff that she was not speaking clearly. EMS checked blood sugar at the scene it was normal, and transferred her here for evaluation. She has had no fevers or chills, no vomiting or diarrhea, no loss of consciousness. No complaints of chest pain or shortness of breath. HPI supplemented by speaking to family member who was later at the bedside, reviewing [facility] records, and speaking to EMS and nursing staff. ROS All systems reviewed and are negative except as per history of present illness. Medications Home Meds Active Scripts Metoprolol Succinate* (Toprol XL*) 50 Mg Tab.er.24h, 50 MG PO BID for 30 Days Prov:VIDAL TEMPLETON 09/17/16 Nitroglycerin* (Nitrostat*) 0.4 Mg Tab.subl, 1 TAB SL Q5M Y for ANGINA for 30 Days Prov:VIDAL TEMPLETON 09/17/16 Lisinopril* (Lisinopril*) 40 Mg Tablet, 40 MG PO DAILY for 30 Days, #30 TAB Prov:VIDAL TEMPLETON 09/17/16 Insulin Aspart* (Novolog Insulin Pen*) 100 Unit/Ml Soln, 18 UNIT SC WITH MEALS for 30 Days Prov:VIDAL TEMPLETON 09/17/16 Aspirin* (Aspirin* EC) 81 Mg Tablet.dr, 81 MG PO DAILY for 30 Days Prov:YULISSA BURKETT MD 09/01/16 Reported Medications Olopatadine HCl (Pazeo) 2.5 Ml Drops, 2.5 ML BOTH EYES DAILY, BOTTLE 08/29/16 Cyclosporine (RESTASIS) 1 Each Droperette, 1 DROP BOTH EYES Q12, #1 BOX 08/29/16 Triamcinolone Acetonide* (Kenalog*) 0.5%-15GM Cr, 1 APPLIC TOP DAILY, #1 BOTTLE APPLY TO BACK 08/29/16 Solifenacin* (Vesicare*) 5 Mg Tablet, 5 MG PO DAILY, TAB 08/29/16 Gabapentin* (Gabapentin*) 100 Mg Capsule, 100 MG PO BID, #90 CAP 08/29/16 Sitagliptin Phos/Metformin HCl (Janumet 50-500 mg Tablet) 1 Each Tablet, 1 EACH PO DAILY, TAB 08/29/16 Furosemide* (Lasix*) 20 Mg Tablet, 20 MG PO DAILY, TAB 08/29/16 Rosuvastatin Calcium* (Crestor*) 20 Mg Tablet, 20 MG PO QHS, #30 TAB 08/29/16 Icosapent Ethyl (VASCEPA) 1 Gm Capsule, 2 GM PO BID, CAP 08/29/16 Diclofenac Sodium* (Diclofenac Sodium*) 50 Mg Tablet.dr, 50 MG PO BID, #60 TAB 08/29/16 Methimazole* (Methimazole*) 5 Mg Tablet, 5 MG PO DAILY, TAB 08/29/16 Insulin Glargine* (Lantus*) 100 Unit/Ml Soln, 61 UNIT SC DAILY, #1 VIAL 08/29/16 Docusate Sodium* (Colace*) 100 Mg Capsule, 100 MG PO DAILY, #30 CAP 08/29/16 Isosorbide Dinitrate* (Isosorbide Dinitrate*) 30 Mg Tablet, 30 MG PO DAILY, TAB 07/24/14 Famotidine* (Famotidine*) 40 Mg Tablet, 40 MG PO DAILY, TAB 07/24/14 Clopidogrel Bisulfate (Clopidogrel) 75 Mg Tablet, 75 MG PO DAILY, TAB 07/24/14 Calcium Carbonate ([id number]) 1 Tab Tablet, 1 TAB PO TID 07/24/14 Ergocalciferol* (Drisdol* (Vitamin D2)) 50,000 Unit Capsule, 52108 UNIT PO Q7D, CAP 07/24/14 Discontinued Reported Medications Insulin Aspart* (Novolog Insulin Pen*) 100 Unit/Ml Soln, 10 UNIT SC WITH MEALS, EA 08/29/16 Ramipril (Ramipril) 5 Mg Capsule, 5 MG PO DAILY, CAP 07/24/14 Metoprolol Succinate* (Toprol XL*) 50 Mg Tab.er.24h, 50 MG PO DAILY, TAB 07/24/14 Glimepiride* (Glimepiride*) 4 Mg Tablet, 4 MG PO BID, TAB 07/24/14 Discontinued Scripts Ciprofloxacin Hcl* (Ciprofloxacin Hcl*) 500 Mg Tablet, 500 MG PO BID for 3 Days , TAB Prov:VIDAL TEMPLETON 09/17/16 Acyclovir* (Acyclovir*) 800 Mg Tablet, 800 MG PO 5 TIMES DAILY for 14 Days, TAB Prov:RAQUEL PROCTOR MD 08/31/16 Allergies Allergies: Coded Allergies: No Known Allergy (Unverified , 09/21/16) PMhx/Soc Hypertension, obesity, diabetes mellitus, hypercholesterolemia, previous TIA History of Surgery: Yes Anesthesia Reaction: No Hx 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 Disorder: No Hx Respiratory Disorders: No Hx Cardiac Disorders: Yes Hx Psychiatric Problems: No Hx Miscellaneous Medical Probl: Yes (see note) Hx Alcohol Use: No Hx Substance Use: No Hx Tobacco Use: No Smoking Status: Never smoker FmHx Family History: No diabetes Physical Exam Vitals Vital Signs Date Time Temp Pulse Resp B/P Pulse Ox O2 Delivery O2 Flow Rate FiO2 09/21/16 15:55 74 18 128/77 98 Nasal Cannula 2.0 09/21/16 13:24 75 17 133/110 97 Nasal Cannula 2.0 09/21/16 12:57 Nasal Cannula 2 09/21/16 12:38 97.6 75 13 156/136 93 Physical Exam GENERAL: Well-developed, dehydrated, altered, afebrile HEENT: Dry mucous membranes, pink conjunctiva, no cervical spine tenderness or step-off deformities, no goiter, no jaundice or icterus, extraocular movements intact without pain. No submandibular induration, and no pharyngeal erythema NEURO: Positive expressive dysarthria with decreased mental status, mild right upper extremity weakness about 4/5 compared to 5/5 on the left upper extremity. Patient is chronically nonambulatory and cannot move her lower extremities very well, pupils equal round reactive to light, no facial asymmetry. CARDIAC: Regular rate and rhythm, no murmurs rubs or gallops LUNGS: Clear bilaterally no wheezing crackles or stridor ABDOMEN: Soft nontender, no guarding, no rigidity, no rebound, no psoas sign no obturator sign. Normoactive bowel sounds SKIN: Warm and dry to touch, no abrasions, contusions, or hematomas, no lacerations, no ecchymosis, no target lesions, and without ulcers EXTREMITIES: No clubbing cyanosis or edema, calves are bilaterally symmetrical, no Homans sign, no popliteal cord sign. Distal pulses equal and bilateral PSYCH: Unable to assess Result Diagram: 09/21/16 1250 09/21/16 1250 Results 24 hrs Laboratory Tests Test 09/21/16 12:50 09/21/16 12:51 09/21/16 13:20 09/21/16 13:25 White Blood Count 16.810^3/ul Red Blood Count 4.3110^6/ul Hemoglobin 12.1g/dl Hematocrit 39.3% Mean Corpuscular Volume 91.2fl Mean Corpuscular Hemoglobin 28.1pg Mean Corpuscular Hemoglobin Concent 30.8g/dl Red Cell Distribution Width 13.9% Platelet Count 57598^3/UL Mean Platelet Volume 10.3fl Neutrophils % 87.6% Lymphocytes % 4.4% Monocytes % 7.0% Eosinophils % 0.2% Basophils % 0.2% Nucleated Red Blood Cells % 0.0/100WBC Neutrophils # 14.710^3/ul Lymphocytes # 0.710^3/ul Monocytes # 1.210^3/ul Eosinophils # 0.010^3/ul Basophils # 0.010^3/ul Nucleated Red Blood Cells # 0.010^3/ul Sodium Level 140mmol/L Potassium Level 5.6mmol/L Chloride Level 104mmol/L Carbon Dioxide Level 22mmol/L Anion Gap 20 Blood Urea Nitrogen 87mg/dl Creatinine 3.52mg/dl Glucose Level 319mg/dl Hemoglobin A1c 8.5% Calcium Level 10.1mg/dl Troponin I < 0.012ng/ml Bedside Glucose 266mg/dL Urine Color LT. YELLOW Urine Clarity CLEAR Urine pH 5.5 Urine Specific Pearl 1.020 Urine Ketones NEGATIVE Urine Nitrite NEGATIVE Urine Bilirubin NEGATIVE Urine Urobilinogen 0.2 E.U./dL Urine Leukocyte Esterase 2+ Urine Microscopic RBC 0-2/HPF Urine Microscopic WBC >200/HPF Urine Epithelial Cells FEW Urine Bacteria FEW Urine Hemoglobin 1+ Urine Glucose NEGATIVE% Urine Total Protein NEGATIVE Urine Opiates Screen Negative Urine Barbiturates Negative Urine Amphetamines Screen Negative Urine Benzodiazepines Screen Negative Urine Cocaine Screen Negative Urine Cannabinoids Negative Prothrombin Time 12.8Sec Prothrombin Time Ratio 1.0 INR International Normalized Ratio 0.96 Activated Partial Thromboplast Time 20.0Sec Current Medications Medications (Trade) Dose Ordered Sig/Elizabeth Route PRN Reason Start Time Stop Time Status Last Admin Dose Admin Sodium Chloride (NS) 1,000 ml @ 1,000 mls/hr Q1H STAT IV 09/21/16 12:43 09/21/16 13:42 DC 09/21/16 13:11 Aspirin (Aspirin) 300 mg ONCE STAT FL 09/21/16 12:43 09/21/16 12:46 DC 09/21/16 13:10 Dextrose (D50w Syringe) 50 ml ONCE STAT IV 09/21/16 13:37 09/21/16 13:41 DC 09/21/16 13:58 Insulin Human Regular 8 unit 8 unit ONCE ONCE IV 09/21/16 14:00 09/21/16 14:01 DC 09/21/16 13:57 Calcium Gluconate 1 gm/Sodium Chloride 110 ml @ 110 mls/hr ONCE ONCE IVPB 09/21/16 15:00 09/21/16 15:59 DC 09/21/16 14:48 Ceftriaxone Sodium (Rocephin) 50 ml @ 100 mls/hr ONCE ONCE IVPB 09/21/16 14:00 09/21/16 14:29 DC 09/21/16 14:07 Enalaprilat (Vasotec Iv) 1.25 mg ONCE ONCE IV 09/21/16 14:00 09/21/16 14:01 DC Aspirin (Halfprin) 81 mg DAILY PO 09/22/16 09:00 Clopidogrel Bisulfate (plaVIX) 75 mg DAILY PO 09/22/16 09:00 Cyclosporine (Restasis) 1 drop Q12 BOTH EYES 09/21/16 21:00 Sodium Chloride 500 ml 500 ml ONCE IV 09/21/16 16:00 09/21/16 16:01 DC Sodium Chloride (NS) 1,000 ml @ 125 mls/hr Q8H IV 09/21/16 15:36 IV Flush (NS 3 ml) 3 ml PER PROTOCOL IV 09/21/16 16:00 Ondansetron HCl (Zofran Inj) 4 mg Q6H PRN IV NAUSEA AND/OR VOMITING 09/21/16 16:00 Acetaminophen (Tylenol Tab) 650 mg Q6H PRN PO PAIN LEVEL 1-3 OR FEVER 09/21/16 16:00 Acetaminophen (Tylenol Supp) 650 mg Q6H PRN FL PAIN LEVEL 1-3 OR FEVER 09/21/16 16:00 Acetaminophen/ Hydrocodone Bitart ([place] (5/325)) 1 tab Q6H PRN PO MODERATE PAIN LEVEL 4-6 09/21/16 16:00 Morphine Sulfate (morphine) 2 mg Q4H PRN IV SEVERE PAIN LEVEL 7-10 09/21/16 16:00 Docusate Sodium (Colace) 100 mg Q12H PRN PO CONSTIPATION 09/21/16 16:00 Bisacodyl (Dulcolax) 5 mg DAILY PRN PO CONSTIPATION 09/21/16 16:00 Bisacodyl (Dulcolax Supp) 10 mg DAILY PRN FL CONSTIPATION 09/21/16 16:00 Famotidine (Pepcid Iv) 20 mg QHS IV 09/21/16 21:00 Enoxaparin Sodium (Lovenox) 30 mg DAILY SC 09/22/16 09:00 Miscellaneous Information (* Miscellaneous Pharmacy Order) HYPOGLYCEMIA PROTOCOL w... ONCE ONCE XX 09/21/16 16:00 09/21/16 16:01 DC Miscellaneous Information (* Miscellaneous Pharmacy Order) Discontinue Glyburide, Glipizide,... ONCE ONCE XX 09/21/16 16:00 09/21/16 16:01 DC Miscellaneous Information (* Miscellaneous Pharmacy Order) Discontinue all previ... ONCE ONCE XX 09/21/16 16:00 09/21/16 16:01 DC Ceftriaxone Sodium (Rocephin) 2 gm DAILY ONCE IVPB 09/22/16 09:00 09/22/16 09:01 UNV Miscellaneous Information 1 ea NOTE XX 09/21/16 16:00 Glucose (Glutose) 15 gm Q15M PRN PO DECREASED GLUCOSE 09/21/16 16:00 Glucose (Glutose) 22.5 gm Q15M PRN PO DECREASED GLUCOSE 09/21/16 16:00 Dextrose (D50w Syringe) 25 ml Q15M PRN IV DECREASED GLUCOSE 09/21/16 16:00 Dextrose (D50w Syringe) 50 ml Q15M PRN IV DECREASED GLUCOSE 09/21/16 16:00 Glucagon (Glucagen) 1 mg Q15M PRN IM DECREASED GLUCOSE 09/21/16 16:00 Glucose 15 gm 15 gm Q15M PRN BUCCAL DECREASED GLUCOSE 09/21/16 16:00 Ceftriaxone Sodium (Rocephin) 50 ml @ 100 mls/hr Q24H IVPB 09/22/16 09:00 Procedures/MDM IV line was established patient was placed on clinical research monitor rhythm strip revealed a sinus rhythm at about 80 bpm with upright P and T waves. Patient was afebrile. Exact symptom onset and timing was not available to us at presentation because daughter was not in the ED yet so a code stroke was called. CT scan of the brain was negative for acute bleed mass or shift. Although after further HPI became available the tele-neurologist and I discussed the case and agreed the patient is not a candidate for TPA given she was last normal yesterday, and there is a high likelihood symptoms began this morning when she woke up. Please refer to telemetry neurologist no for consultation details. I administered aspirin 300 mg per rectum for neuroprotective measures. EKG performed, read by me: 80 bpm, normal sinus rhythm, normal axis, no acute ST segment changes, narrow QRS complex, with good R-wave progression in precordial leads. Chest X-ray 1V Interpreted by me: Soft Tissue: No acute abnormalities Bones: No acute abnormalities Mediastinum/Cardiac Silhouette/Lungs: No acute abnormalities Neuro critical Care: Time: 35 minutes, this was time separate from other procedures. Treatments/Evaluations: Close monitoring and treatment of unstable vital signs, cardiorespiratory, and neurologic status, while maintaining tight balance of fluid, respiratory, and cardiac interventions. CBC reveals a leukocytosis of 17, electrolytes reveal hyperkalemia 5.6 with acute kidney injury and dehydration and a BUN/creatinine of 87/3.5, blood sugar elevated at 319, troponin was negative. Urine analysis was positive for infection. I treated the patient here with dextrose 25 g IV, regular insulin 8 units IV, and calcium gluconate 1 g IV. She also received ceftriaxone 1 g IV for UTI. Patient admitted to telemetry setting for continued medical management and observation. Departure Diagnosis: Primary Impression: Acute encephalopathy Additional Impressions: Stroke Qualified Code: I63.9 - Cerebrovascular accident (CVA), unspecified mechanism UTI (urinary tract infection) Qualified Code: N30.00 - Acute cystitis without hematuria Hyperkalemia Acute kidney injury Dehydration Hypertension Qualified Code: I10 - Essential hypertension Condition: Fair ZOHRABIAN,KEYA MD Sep 21, 2016 14:34
[2016-09-21] MEDS ORDERED: CALCIUM GLUCONATE 10% 1 GM in SOD CHLORIDE 0.9% 100 ML IVPB ONE (15:00)
[2016-09-21] MEDS: SOD CHLORIDE 0.9% 1,000 ML IV SCH ×2 (15:36→21:29)
[2016-09-21] MEDS ORDERED: ONDANSETRON 4 MG INJ IV PRN (16:00)
[2016-09-21] MEDS ORDERED: NACL 0.9% 3 ML SYG IV SCH (16:00)
[2016-09-21] MEDS ORDERED: ACETAMINOPHEN 325 MG TAB PO PRN (16:00)
[2016-09-21] MEDS ORDERED: GLUCOSE GEL 15 GRAM TUBE BUCCAL PRN ×2 (16:00→22:30)
[2016-09-21] MEDS ORDERED: GLUCAGON 1 MG INJ IM PRN ×2 (16:00→22:30)
[2016-09-21] MEDS ORDERED: GLUCOSE GEL 15 GRAM TUBE PO PRN ×4 (16:00→22:30)
[2016-09-21] MEDS ORDERED: morphine 2 MG INJ IV PRN (16:00)
[2016-09-21] MEDS ORDERED: BISACODYL (EC) 5 MG TAB PO PRN (16:00)
[2016-09-21] MEDS ORDERED: SODIUM CHLORIDE 0.9% 1L BAG IV SCH (16:00)
[2016-09-21] MEDS ORDERED: BISACODYL 10 MG SUPP PR PRN (16:00)
[2016-09-21] MEDS ORDERED: DEXTROSE 50% 50 ML SYRINGE IV PRN ×4 (16:00→22:30)
[2016-09-21] MEDS ORDERED: ACETAMINOPHEN 650 MG SUPP PR PRN (16:00)
[2016-09-21] MEDS ORDERED: DOCUSATE SODIUM 100 MG CAP PO PRN (16:00)
[2016-09-21] MEDS ORDERED: HYDROCODONE/APAP (5/325) TAB PO PRN (16:00)
--- NOTE | 2016-09-21 16:34 | RADRPT ---
PROCEDURE: US Renal CLINICAL INDICATION: Renal failure TECHNIQUE: Multiple sonographic images of the kidneys and bladder were obtained. Evaluation of th e kidneys and bladder was performed as well with pedro scale and color and Doppler evaluation using a curved array transducer. The images were reviewed on a high-resolution PACS workstation. COMPARISON: No prior studies are available for comparison. FINDINGS: The right kidney measures 10.5 cm in length. The left kidney measures 9.2 cm in length. There are no focal areas of abnormal echogenicity. There is no mass, calculus, or obstructive uropathy. No perin ephric fluid collection is seen. The bladder appears the bladder is nondistended from a Lassiter catheter.. IMPRESSION: 1. The left kidney is somewhat small measuring 9.2 cm. 2. The right kidney is normal in size. 3. There is no intra renal calcification, mass, or hydronephrosis. 4. The bladder is poorly seen as is nondistended with a Lassiter catheter in place. Physician Juan Pablo Date Time Electronically viewed and signed by Physician Juan Pablo on 09/21/2016 16:33 /
[2016-09-21 17:49] VITALS: PULSE 75
[2016-09-21] MEDS ORDERED: NON-FORMULARY/PATIENT OWN MED (Olopatadine HCl (Pazeo) 2.5 ML) XX SCH (18:00)
[2016-09-21 18:17] VITALS: BP 135/60; RESP 20
[2016-09-21 18:30] VITALS: Ht 157.5 cm; Wt 86.7 kg
--- NOTE | 2016-09-21 19:31 | HP ---
DATE OF ADMISSION: 09/21/2016 PRIMARY CARE PHYSICIAN: Unknown. CHIEF COMPLAINT: Altered mental status. HISTORY OF PRESENT ILLNESS: This is a 76-year-old female who has been residing at [facility]. Apparently, the patient has been in her usual state of health. According to the daughter, participating in physical therapy during the week. She last saw her on Thursday. Today, this mornin g, the staff noted the patient was in her usual state of health until there was some altered level o f conscious. The patient was not following commands, was not interacting with staff as appropriate. Concern for slurred speech and the EMS arrived and the blood sugar was normal. The patient is see n in the emergency room and was noted to not be a candidate for TPA. Daughter states she found the patient had a pill still in her mouth. In the ER, noted to have expressive dysarthria with decreased alertness, concern for right upper ext remity weakness. No droop. CAT scan was negative for any acute process. Upon my evaluation, the patient is awake, alert, responding to some 1 step commands and interacting with her daughter. Her speech is a little slurred, but the daughter can understand it. There is a language barrier. Tongue is midline, there may be some white discoloration on the floor of her mout h. ER vital signs stable, sinus rhythm. PAST MEDICAL HISTORY: 1. Stroke in August with aphasia and gait dysfunction. 2. Dementia with delirium. 3. Hypertension. 4. Diabetes. 5. Lumbar 1 compression fracture status. 6. Hypothyroidism. 7. DJD. 8. Deconditioning 9. Glaucoma. 10. Shingles about 3 weeks ago, admitted here. PAST SURGICAL HISTORY: Appendectomy, hysterectomy, cholecystectomy. FAMILY HISTORY: There is no family history of early coronary artery disease, cancer, or stroke. HOME MEDICATIONS: None. SOCIAL HISTORY: No active tobacco or alcohol. Resides presently at [facility]. REVIEW OF SYSTEMS: Unobtainable due to altered level of consciousness and interaction. ALLERGIES: NO KNOWN DRUG ALLERGIES. HOME MEDICATIONS: 1. [place]. 2. Diclofenac 50 mg twice daily. 3. Colace. 4. Vitamin D. 5. Pepcid 40. 6. Neurontin 100 b.i.d. 7. Lasix 20 mg. 8. Insulin sliding scale. 9. Lantus 61. 10. Isosorbide 30. 11. Lisinopril 40. 12. Methimazole 5. 13. Toprol-XL 50 b.i.d. 14. NitroQuick as needed. 15. VESIcare 5. 16. Triamcinolone/Kenalog once daily. 17. Not sure if she is on Janumet. 18. Crestor 20. 19. Olopatadine. 20. Vascepa. 21. Aspirin 81. 22. Plavix 75 b.i.d. PHYSICAL EXAMINATION: HEENT: Extraocular movements appear to be intact. No pallor, no icterus. No droop. NECK: No adenopathy, no carotid bruits, no JVD. CARDIOVASCULAR: S1, S2 regular. No murmur, rub, gallops appreciated. LUNGS: Diminished breath sounds bilaterally. No tachypnea. ABDOMEN: Bowel sounds present, diminished, mild Bai's, mildly distended. No rigidity. No rebou nd or guarding. She is overweight. EXTREMITIES: Without any edema. NEUROLOGICAL SYSTEM: Cranial nerves II through XII appear grossly intact. Motor appears 4/5 bilate ral uppers, maybe 2 to 3/5 bilateral lower symmetrical. Sensory symmetrical. Reflexes symmetrical, diminished. Babinskis none. IMAGING STUDIES: Chest x-ray: No acute process. CAT scan of the brain: No acute process, scatter ed white matter infarcts of the old injury. Renal ultrasound does not show any obstruction, but the Lassiter is in place. Left kidney somewhat smaller than the right by 1 cm. LABORATORY DATA: White cell count of 16, hemoglobin and hematocrit of 12 and 39, platelets of 320. INR 0.9. Urine 200 white cells, 0 to 2 RBCs, few bacteria, nitrite negative. Leukocyte esterase 2+ , urine tox screen negative. Sodium 140, potassium 5.6, chloride 104, bicarbonate 22, BUN of 87, cr eatinine of 3.5, glucose of 300, A1c of 8, calcium 10. Troponin negative. ASSESSMENT: 1. Acute confusional state/metabolic encephalopathy, stable. Admit to telemetry. 2. Acute renal failure. Probable retention. The patient has had a Lassiter placed. Rule out UTI. D iscontinue diuretics, NEGIN inhibitor, nonsteroidals. 3. Recent ischemic stroke, stable. Continue risk factor modification. She needs advanced care alfa nning established. 4. Recent shingles appears to be asymptomatic. 5. Constipation, probably a larger issues due to deconditioning. 6. Leukocytosis. No evidence of or worsening signs of pneumonia. 7. Potential acute cystitis, possible pyelo. Will continue Rocephin for now. Lovenox. 7. Deconditioning. Continue PT, OT. Dictated By: RAQUEL GRANDE/JEAN Conf#: [id number] DID#: [id number]
[2016-09-21 19:46] VITALS: BP 121/92; RESP 16
[2016-09-21] MEDS: OLOPATADINE XX SCH (20:00)
[2016-09-21 20:32] VITALS: PULSE 68
[2016-09-21] MEDS: GABAPENTIN 100 MG CAP PO SCH (21:00)
[2016-09-21] MEDS: ATORVASTATIN 80 MG TAB PO SCH (21:00)
[2016-09-21] MEDS: METOPROLOL (XL) 50 MG TAB PO SCH (21:00)
[2016-09-21] MEDS: FAMOTIDINE 20 MG INJ IV SCH (21:30)
[2016-09-21] MEDS: DEXTROSE 5%-0.45% NACL 1,000 ML IV SCH (22:43)
[2016-09-21] MEDS: CYCLOSPORINE 0.05% OPH DROPERETTE BOTH EYES SCH (23:26)
[2016-09-21 23:37] VITALS: BP 102/54; RESP 18
[2016-09-22] VITALS (11 sets, daily range): BP systolic 94–132; BP diastolic 48–63; PULSE 70–78; RESP 18
[2016-09-22] MEDS: OLOPATADINE XX SCH ×3 (00:59→18:30)
[2016-09-22] MEDS: INSULIN ASPART [NOVOLOG] 3 ML PEN SC SCH ×5 (05:21→20:47)
[2016-09-22 06:46] LABS: ADD SCAN DIFF NO
[2016-09-22 06:49] LABS: BASOPHILS % 0.3 % (0.0-2.0); EOSINOPHILS # 0.1 10^3/ul (0.0-0.5); EOSINOPHILS % 0.8 % (0.0-7.0); HEMATOCRIT 32.7 % (37.0-47.0); HEMOGLOBIN 10.2 g/dl (12.0-16.0); LYMPHOCYTES # 1.7 10^3/ul (0.8-2.9); LYMPHOCYTES % 15.2 % (15.0-51.0); MEAN CORPUSCULAR HEMOGLOBIN 28.9 pg (29.0-33.0); MEAN CORPUSCULAR HGB CONC 31.2 g/dl (32.0-37.0); MEAN CORPUSCULAR VOLUME 92.6 fl (82.0-101.0); MEAN PLATELET VOLUME 9.9 fl (7.4-10.4); MONOCYTES % 8.7 % (0.0-11.0); NEUTROPHIL # 8.6 10^3/ul (1.6-7.5); NEUTROPHILS % 74.7 % (39.0-77.0); PLATELET COUNT 256 10^3/UL (140-415); RED BLOOD COUNT 3.53 10^6/ul (4.20-5.40); RED CELL DISTRIBUTION WIDTH 13.9 % (11.5-14.5); WHITE BLOOD COUNT 11.4 10^3/ul (4.8-10.8)
[2016-09-22 07:11] LABS: ALBUMIN 2.9 g/dl (3.3-4.9); ALBUMIN/GLOBULIN RATIO 0.85; CALCIUM 9.2 mg/dl (8.4-10.2); CREATININE 2.73 mg/dl (0.44-1.00); POTASSIUM 4.6 mmol/L (3.5-5.1); TOTAL PROTEIN 6.3 g/dl (6.1-8.1)
[2016-09-22] MEDS: CYCLOSPORINE 0.05% OPH DROPERETTE BOTH EYES SCH ×2 (08:21→20:57)
[2016-09-22] MEDS: CEFTRIAXONE 1 GM/NS 50 ML IVPB SCH (08:22)
[2016-09-22] MEDS: ENOXAPARIN 30 MG/0.3 ML SYG SC SCH (08:27)
[2016-09-22] MEDS ORDERED: CEFTRIAXONE 1 GM INJ IVPB SCH (09:00)
[2016-09-22] MEDS: CLOPIDOGREL 75 MG TAB PO SCH (09:00)
[2016-09-22] MEDS: METOPROLOL (XL) 50 MG TAB PO SCH ×2 (09:00→19:22)
[2016-09-22] MEDS: GABAPENTIN 100 MG CAP PO SCH ×2 (09:00→19:20)
[2016-09-22] MEDS ORDERED: CEFTRIAXONE 2 GM/NS 50 ML IVPB SCH (09:00)
[2016-09-22] MEDS ORDERED: CEFTRIAXONE 2 GM INJ IVPB ONE (09:00)
[2016-09-22] MEDS: SOLIFENACIN 5 MG TAB PO SCH (09:00)
[2016-09-22] MEDS: ASPIRIN (EC) 81 MG TAB PO SCH (09:00)
[2016-09-22] MEDS ORDERED: hydrALAzine 20 MG INJ IV PRN (12:30)
[2016-09-22] MEDS: DEXTROSE 5%-0.45% NACL 1,000 ML IV SCH (12:43)
--- NOTE | 2016-09-22 14:46 | CONS ---
DATE OF ADMISSION: 09/21/2016 DATE OF CONSULTATION: 09/22/2016 NEPHROLOGY CONSULTATION REFERRING PHYSICIAN: Dr. Abhijit Waldron REASON FOR CONSULTATION: Acute kidney injury, acute hyperkalemia. HISTORY OF PRESENT ILLNESS: This is a 76-year-old female who has a past medical history of hyperten melanie, hyperlipidemia, history of diabetes mellitus, history of a chronic back pain secondary to lumb ar 1 compression fracture, hypothyroidism, severe degenerative joint disease with right knee osteoar thritis status post recent admission for a single generalized weakness, moderate to severe dehydrati on, and the right knee pain. At that time, she had right knee steroid injections done by orthopedic , Dr. Michael Mix. She was discharged to [facility]. The patient was in usual state of health according to the daughter. She gradually slowly becomes altered. She is noted to have alte red mental status and also was having slurred speech. The EMS were called in. The patient was take n to the [facility] Emergency Room for possible TIA versus a stroke. The patient was seen in the emergency room. She is not a candidate for TPA. The patient is noted to have acute kidney injury with a creatinine of 3.5. Her potassium was 5.6, BUN 87. The blood glucose has been on 200 to 300. Her anion gap was 20 on admission. The patient got admitted to the telemetry floor and renal has been consulted for acute kidney injury versus acute kidney injury on chronic kidney d isease. The patient was noted to have uncontrolled hyperglycemia with a hemoglobin A1c of 8.5. REVIEW OF SYSTEMS: Positive for altered mental status and urinary tract infection, dysuria, right k nee pain, back pain. Other review of systems has been obtained and is negative except what is menti oned in the history of present illness. PAST MEDICAL HISTORY: Hypertension, hyperlipidemia, diabetes mellitus, history of dementia, history of a decompression fracture of the lumbar spine causing chronic back pain. PAST SURGICAL HISTORY: History of recent admission, had right knee intraarticular steroid injection s. 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 No smoking, al cohol, or recreational drug use. FAMILY HISTORY: Not available. PHYSICAL EXAMINATION: VITAL SIGNS: Temperature 97.8, heart rate 69, respirations 18, blood pressure 97/63, saturation 100 % on 4 L nasal cannula. GENERAL: Awake, alert, in moderate distress due to hypoxia. HEENT: Normal, oropharynx clear. NECK: Supple, no JVD, no lymphadenopathy. LUNGS: Clear to auscultation. No crackles, no wheezes. HEART: S1, S2, with regular rhythm, no murmur. ABDOMEN: Soft, nontender, nondistended. Bowel sounds are present. EXTREMITIES: No clubbing, cyanosis, edema. LABORATORY DATA/DIAGNOSTIC IMAGING: Sodium 140, potassium 5.6, chloride 104, bicarbonate 22, BUN 87 , creatinine 3.5, glucose 319, calcium 10.1, hemoglobin A1c 8.5. Prothrombin time 12.8, PTT 20, INR 0.96. WBC 16.8, hemoglobin 12.1, platelet count 325. Urinalysis: 2+ leukocyte esterase, few bact eria, 1+ hemoglobin. Urine toxicology is negative. PT 12.8, PTT 20, INR 0.96. Renal ultrasound do ne in the emergency room shows the left kidney 9.2 cm right kidney normal in size. There were no in trarenal calcifications, mild runoff, or hydronephrosis. Lassiter catheter in place. IMPRESSION: This is a 76-year-old female who presented with possible transient ischemic attack, rul e out acute cerebrovascular accident. The patient has been admitted to the telemetry floor for alte red mental status, urinary tract infections, and renal has been consulted for: 1. Acute kidney injury versus acute kidney injury on chronic kidney disease stage II secondary to n ephrotoxicity from her Lasix, diclofenac, and lisinopril. 2. The patient's renal ultrasound has been consistent with a past medical history of possible chron ic kidney disease secondary to diabetic nephropathy. 3. History of hypertension. 4. History of diabetes mellitus type 2. 5. History of dementia. 6. History of chronic back pain secondary to compression fracture. 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 PLAN: 1. The patient is currently seen in the telemetry floor. Continue the IV antibiotics for urinary t ract infections. 2. I will switch the patient's IV fluids from D5 half NS to NS at 75 mL per hour. 3. Urinalysis, urine sodium, urine protein, creatinine, and urine eosinophils has been ordered. Th e patient had a renal ultrasound done on the day of admission which is consistent with medical renal disease, no need for renal ultrasound at this point. 4. Uric acid has been ordered for the a.m. labs. 5. The patient is currently seen on the telemetry floor and she will be followed up with the hospit alist team. Thank you, Dr. Abhijit Waldron, for this consultation. I will continue to follow this patient. Dictated By: HUMBERTO LING MD, KP/JEAN Conf#: [id number] DID#: [id number]
[2016-09-22] MEDS: SOD CHLORIDE 0.9% 1,000 ML IV SCH (15:29)
--- NOTE | 2016-09-22 15:57 | PN ---
DATE: 09/22/2016 TIME OF EVALUATION: 11:30 a.m. SUBJECTIVE DATA: The patient remains confused. Vital signs stable. OBJECTIVE DATA: VITAL SIGNS: Temperature 97.8, pulse rate 70, respiratory rate 18, blood pressure 97/63, oxygen saturation 100% on low flow O2. GENERAL: This is an obese Syrian female lying in bed in no apparent distress. HEENT: Head normocephalic and atraumatic. Eyes: Anicteric sclerae. Conjunctivae clear. ENT: Nasal septum is midline. Oral mucosa is dry. NECK: Supple. No JVD noticed. RESPIRATORY: Bilaterally diminished breath sounds. No adventitious breath sounds heard. No use of accessory muscles. CARDIAC: Regular rate and rhythm. S1 and S2 heard. ABDOMEN: Soft, nontender and nondistended. Bowel sounds positive in all 4 quadrants. GENITOURINARY: Deferred. EXTREMITIES: No cyanosis, no clubbing, no edema. Peripheral pulses palpable. NEUROLOGIC: The patient is awake and alert. Oriented to self. Moves all 4 extremities. LABORATORY AND DIAGNOSTIC DATA: WBC 11.4, hemoglobin 10.2, hematocrit 32.7, platelet count 256. Sodium 141, potassium 4.6, chloride 114, carbon dioxide 20 , anion gap 12, BUN 71, creatinine 2.73, glucose 156, calcium 9.2, alkaline phosphatase 222. ASSESSMENT AND PLAN: 1. Acute encephalopathy. Most probably secondary to underlying uremia from worsening renal function along with a combination of possible underlying urinary tract infection. Brain CT scan negative for any acute findings. However, brain CT showed small scattered foci of subacute white matter infarcts. Continue n.p.o. Await speech therapy evaluation. 2. Acute kidney injury. 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 However, the patient's current BUN and creatinine are elevated. This could be most probably secondary to nephrotoxicity from NSAIDs and NEGIN inhibitors. These have been put on hold. Nephrology following the patient. We will avoid any nephrotoxic medications. 3. Essential hypertension. Continue antihypertensives. 4. Diabetes mellitus, most probably type 2. Continue sliding scale insulin. Hemoglobin A1c 8.5. 5. Positive urinalysis, urine leukocyte esterase 2+, urine microscopic WBC greater than 200. However, the patient's urine culture has been negative so far. Continue antibiotics for any underlying urinary tract infection. 6. Hypothyroidism. Continue Synthroid. 7. Recent history of shingles. Currently stable. 8. Fluid, electrolytes and nutrition. Continue n.p.o. Await evaluation by speech therapy. 9. Deep venous thrombosis prophylaxis. Subcutaneous Lovenox (renal dose). 10. Gastrointestinal prophylaxis. Histamine-2 receptor blockers. PLAN: Continue inpatient monitoring. Continue antibiotics. Await speech therapy evaluation. The case was discussed with Dr. Wright. TETE WRIGHT MD, AM/JEAN Conf#: [id number] DID#: [id number] MTDD
[2016-09-22] MEDS: ATORVASTATIN 80 MG TAB PO SCH (19:19)
[2016-09-22] MEDS: FAMOTIDINE 20 MG INJ IV SCH (20:57)
[2016-09-23] VITALS (13 sets, daily range): BP systolic 115–156; BP diastolic 53–70; PULSE 70–82; RESP 17–20
[2016-09-23] MEDS: INSULIN ASPART [NOVOLOG] 3 ML PEN SC SCH ×6 (01:00→17:20)
[2016-09-23] MEDS: OLOPATADINE XX SCH ×3 (02:03→17:20)
[2016-09-23] MEDS: SOD CHLORIDE 0.9% 1,000 ML IV SCH (04:30)
[2016-09-23 07:49] LABS: ADD SCAN DIFF NO
[2016-09-23 08:08] LABS: BASOPHILS % 0.3 % (0.0-2.0); EOSINOPHILS # 0.2 10^3/ul (0.0-0.5); EOSINOPHILS % 1.9 % (0.0-7.0); HEMATOCRIT 33.5 % (37.0-47.0); HEMOGLOBIN 10.6 g/dl (12.0-16.0); LYMPHOCYTES % 20.7 % (15.0-51.0); MEAN CORPUSCULAR HEMOGLOBIN 28.9 pg (29.0-33.0); MEAN CORPUSCULAR HGB CONC 31.6 g/dl (32.0-37.0); MEAN CORPUSCULAR VOLUME 91.3 fl (82.0-101.0); MEAN PLATELET VOLUME 9.6 fl (7.4-10.4); MONOCYTE # 0.8 10^3/ul (0.3-0.9); MONOCYTES % 8.2 % (0.0-11.0); NEUTROPHIL # 6.5 10^3/ul (1.6-7.5); NEUTROPHILS % 68.6 % (39.0-77.0); PLATELET COUNT 263 10^3/UL (140-415); RED BLOOD COUNT 3.67 10^6/ul (4.20-5.40); RED CELL DISTRIBUTION WIDTH 13.7 % (11.5-14.5); WHITE BLOOD COUNT 9.4 10^3/ul (4.8-10.8)
[2016-09-23 08:13] LABS: CALCIUM 9.2 mg/dl (8.4-10.2); CREATININE 1.61 mg/dl (0.44-1.00); POTASSIUM 4.9 mmol/L (3.5-5.1)
[2016-09-23] MEDS: CYCLOSPORINE 0.05% OPH DROPERETTE BOTH EYES SCH ×2 (08:46→21:00)
[2016-09-23] MEDS: CEFTRIAXONE 1 GM/NS 50 ML IVPB SCH (08:46)
[2016-09-23] MEDS: ENOXAPARIN 30 MG/0.3 ML SYG SC SCH (08:54)
--- NOTE | 2016-09-23 09:46 | CONS ---
Date/Time of Note Date/Time of Note DATE: 09/23/16 TIME: 09:41 Assessment/Plan Assessment/Plan Additional Assessment/Plan 1. 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 2. The patient's renal ultrasound has been consistent with a past medical history of possible chronic kidney disease secondary to diabetic nephropathy. 3. History of hypertension. 4. History of diabetes mellitus type 2. 5. History of dementia. 6. History of chronic back pain secondary to compression fracture. 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 PLAN: s/p IV fluids, BUN/Cr imrpoving, pt had a Normal renal function on last admission Electrolytes stable ok to start diet, renal diet d/w Parts Control Clerk Renal US c/w medical renal disease Consultation Date/Type/Reason Admit Date/Time Sep 21, 2016 at 14:27 Initial Consult Date September Type of Consultation: NEPHROLOGY Reason for Consultation Acute kidney injury, Hyperkalemia Referring Provider: RAQUEL PROCTOR MD 24 HR Interval Summary Free Text/Dictation BUN/Cr improving with IVF hydration , more alert today Exam/Review of Systems Vital Signs Vitals Vital Signs Date Time Temp Pulse Resp B/P Pulse Ox O2 Delivery O2 Flow Rate FiO2 09/23/16 08:11 82 09/23/16 07:04 98.1 19 144/66 98 09/22/16 21:52 Nasal Cannula 2.0 Intake and Output 09/22/16 09/22/16 09/23/16 15:00 23:00 07:00 Intake Total 425 ml 225 ml 1150 ml Output Total 1000 ml 1700 ml Balance 425 ml -775 ml -550 ml Exam GENERAL: Awake, alert, in moderate distress due to hypoxia. HEENT: Normal, oropharynx clear. NECK: Supple, no JVD, no lymphadenopathy. LUNGS: Clear to auscultation. No crackles, no wheezes. HEART: S1, S2, with regular rhythm, no murmur. ABDOMEN: Soft, nontender, nondistended. Bowel sounds are present. EXTREMITIES: No clubbing, cyanosis, edema. Results Result Diagram: 09/23/16 0646 09/23/16 0646 Results 24 hrs Laboratory Tests Test 09/22/16 11:56 09/22/16 16:06 09/22/16 20:45 09/23/16 02:00 Bedside Glucose 102 107 133 80 Test 09/23/16 04:29 09/23/16 06:46 09/23/16 08:49 Bedside Glucose 94 104 White Blood Count 9.4 Red Blood Count 3.67 L Hemoglobin 10.6 L Hematocrit 33.5 L Mean Corpuscular Volume 91.3 Mean Corpuscular Hemoglobin 28.9 L Mean Corpuscular Hemoglobin Concent 31.6 L Red Cell Distribution Width 13.7 Platelet Count 263 Mean Platelet Volume 9.6 Neutrophils % 68.6 Lymphocytes % 20.7 Monocytes % 8.2 Eosinophils % 1.9 Basophils % 0.3 Nucleated Red Blood Cells % 0.0 Neutrophils # 6.5 Lymphocytes # 2.0 Monocytes # 0.8 Eosinophils # 0.2 Basophils # 0.0 Nucleated Red Blood Cells # 0.0 Sodium Level 142 Potassium Level 4.9 Chloride Level 114 H Carbon Dioxide Level 22 Anion Gap 11 Blood Urea Nitrogen 46 #H Creatinine 1.61 #H Glucose Level 95 # Calcium Level 9.2 Phosphorus Level 4.0 Magnesium Level 2.0 Medications Medications Current Medications Aspirin (Halfprin) 81 mg DAILY PO ; Start 09/22/16 at 09:00 Clopidogrel Bisulfate (plaVIX) 75 mg DAILY PO ; Start 09/22/16 at 09:00 Cyclosporine (Restasis) 1 drop Q12 BOTH EYES Last administered on 09/23/16t 08: 46; Admin Dose 1 DROP; Start 09/21/16 at 21:00 Ondansetron HCl (Zofran Inj) 4 mg Q6H PRN IV NAUSEA AND/OR VOMITING; Start at 16:00 Acetaminophen (Tylenol Tab) 650 mg Q6H PRN PO PAIN LEVEL 1-3 OR FEVER; Start at 16:00 Acetaminophen (Tylenol Supp) 650 mg Q6H PRN [place] PAIN LEVEL 1-3 OR FEVER; Start 09/21/16 at 16:00 Acetaminophen/ Hydrocodone Bitart ([place] (5/325)) 1 tab Q6H PRN PO MODERATE PAIN LEVEL 4-6; Start 09/21/16 at 16:00 Morphine Sulfate (morphine) 2 mg Q4H PRN IV SEVERE PAIN LEVEL 7-10; Start 09/21 at 16:00 Docusate Sodium (Colace) 100 mg Q12H PRN PO CONSTIPATION; Start 09/21/16 at 16: 00 Bisacodyl (Dulcolax) 5 mg DAILY PRN PO CONSTIPATION; Start 09/21/16 at 16:00 Bisacodyl (Dulcolax Supp) 10 mg DAILY PRN [place] CONSTIPATION; Start 09/21/16 at 16 :00 Famotidine (Pepcid Iv) 20 mg QHS IV Last administered on 09/22/16 20:57; Admin Dose 20 MG; Start 09/21/16 at 21:00 Enoxaparin Sodium (Lovenox) 30 mg DAILY SC Last administered on 09/23/16 08:54 ; Admin Dose 30 MG; Start 09/22/16 at 09:00 Miscellaneous Information 1 ea NOTE XX ; Start 09/21/16 at 16:00 Glucose (Glutose) 15 gm Q15M PRN PO DECREASED GLUCOSE; Start 09/21/16 at 16:00 Glucose (Glutose) 22.5 gm Q15M PRN PO DECREASED GLUCOSE; Start 09/21/16 at 16: 00 Dextrose (D50w Syringe) 25 ml Q15M PRN IV DECREASED GLUCOSE Last administered on 09/22/16 05:26; Admin Dose 25 ML; Start 09/21/16 at 16:00 Dextrose (D50w Syringe) 50 ml Q15M PRN IV DECREASED GLUCOSE; Start 09/21/16 at 16:00 Glucagon (Glucagen) 1 mg Q15M PRN IM DECREASED GLUCOSE; Start 09/21/16 at 16:00 Glucose (Glutose) 15 gm Q15M PRN BUCCAL DECREASED GLUCOSE; Start 09/21/16 at 16 :00 Gabapentin (Neurontin) 100 mg BID PO ; Start 09/21/16 at 21:00 Metoprolol Succinate (Toprol Xl) 50 mg BID PO ; Start 09/21/16 at 21:00 Solifenacin (Vesicare) 5 mg DAILY PO ; Start 09/22/16 at 09:00 Miscellaneous Information 2.5 ml DAILY XX ; Start 09/21/16 at 18:00; Status UNV Atorvastatin Calcium 80 mg 80 mg DAILY@21 PO ; Start 09/21/16 at 21:00 Ceftriaxone Sodium (Rocephin) 50 ml @ 100 mls/hr Q24H IVPB Last administered on 09/23/16 08:46; Admin Dose 100 MLS/HR; Start 09/22/16 at 09:00 Miscellaneous Information (*Order Clarification Bulletin) MEDICATION REQUIRES CLARIFICATION: Q8H XX ; Start 09/21/16 at 18:30 Miscellaneous Information 1 ea NOTE XX ; Start 09/21/16 at 22:30 Glucose (Glutose) 15 gm Q15M PRN PO DECREASED GLUCOSE; Start 09/21/16 at 22:30 Glucose (Glutose) 22.5 gm Q15M PRN PO DECREASED GLUCOSE; Start 09/21/16 at 22: 30 Dextrose (D50w Syringe) 25 ml Q15M PRN IV DECREASED GLUCOSE; Start 09/21/16 at 22:30 Dextrose (D50w Syringe) 50 ml Q15M PRN IV DECREASED GLUCOSE; Start 09/21/16 at 22:30 Glucagon (Glucagen) 1 mg Q15M PRN IM DECREASED GLUCOSE; Start 09/21/16 at 22:30 Glucose (Glutose) 15 gm Q15M PRN BUCCAL DECREASED GLUCOSE; Start 09/21/16 at 22 :30 Hydralazine HCl (Apresoline) 10 mg Q6H PRN IV ELEVATED BP SBP>160; Start at 12:30 Insulin Aspart NOVOLOG *MILD* ALGORI... Q4 SC ; Start 09/22/16 at 16:00 Sodium Chloride (NS) 1,000 ml @ 75 mls/hr [id number] IV Last administered on 09/23 04:30; Admin Dose 75 MLS/HR; Start 09/22/16 at 13:30; Stop 09/23/16 at 16: 09 HUMBERTO LING MD Sep 23, 2016 09:46
[2016-09-23] MEDS: ASPIRIN (EC) 81 MG TAB PO SCH (11:39)
[2016-09-23] MEDS: CLOPIDOGREL 75 MG TAB PO SCH (11:39)
[2016-09-23] MEDS: GABAPENTIN 100 MG CAP PO SCH ×2 (11:40→20:57)
[2016-09-23] MEDS: SOLIFENACIN 5 MG TAB PO SCH (11:40)
[2016-09-23] MEDS: METOPROLOL (XL) 50 MG TAB PO SCH ×2 (11:41→20:59)
--- NOTE | 2016-09-23 14:53 | PN ---
Date/Time of Note Date/Time of Note DATE: 09/23/16 TIME: 14:47 Assessment/Plan VTE Prophylaxis VTE Prophylaxis Intervention: LMWH Lines/Catheters IV [facility] [place] Urinary Cath still in place: Yes Reason Cath still needed: terminal illness/intractable pain Assessment/Plan Assessment/Plan 1. Acute encephalopathy, most probably secondary to underlying uremia from worsening renal function along with a combination of possible underlying urinary tract infection. Brain CT scan negative for any acute findings. However, brain CT showed small scattered foci of subacute white matter infarcts. Continue n.p.o. Await speech therapy evaluation. 2. Acute kidney injury. 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 However, the patient current BUN and creatinine are elevated. This could be most probably secondary to nephrotoxicity from NSAIDs and NEGIN inhibitors. These have been put on hold. Nephrology following the patient. We will avoid any nephrotoxic medications. 3. Essential hypertension. Continue antihypertensives. 4. Diabetes mellitus, most probably type 2. Continue sliding scale insulin. Hemoglobin A1c 8.5. 5. Positive urinalysis, urine leukocyte esterase 2+, urine microscopic WBC greater than 200. However, the patient's urine culture has been negative so far. Continue antibiotics for any underlying urinary tract infection. 6. Hypothyroidism. Continue Synthroid. 7. Recent history of shingles. Currently stable. 8. Fluid, electrolytes and nutrition. Continue n.p.o. Await evaluation by speech therapy. 9. Deep venous thrombosis prophylaxis. Subcutaneous Lovenox (renal dose). 10. Gastrointestinal prophylaxis. Histamine-2 receptor blockers. Subjective 24 Hr Interval Summary Free Text/Dictation no acute events. mentation is better today Exam/Review of Systems Vital Signs Vitals Vital Signs Date Time Temp Pulse Resp B/P Pulse Ox O2 Delivery O2 Flow Rate FiO2 09/23/16 12:23 79 09/23/16 11:27 98.2 19 135/63 97 09/22/16 21:52 Nasal Cannula 2.0 Intake and Output 09/22/16 09/22/16 09/23/16 15:00 23:00 07:00 Intake Total 425 ml 225 ml 1150 ml Output Total 1000 ml 1700 ml Balance 425 ml -775 ml -550 ml Exam Constitutional: other (not oriented) Psych: confusion Head: atraumatic, normocephalic Eyes: EOMI, PERRL Respiratory: clear to auscultation, normal air movement Cardiovascular: nl pulses, regular rate and rhythm Gastrointestinal: non-tender, soft Extremities: normal pulses Results Result Diagram: 09/23/16 0646 09/23/16 0646 Results 24 hrs Laboratory Tests Test 09/22/16 16:06 09/22/16 20:45 09/23/16 02:00 09/23/16 04:29 Bedside Glucose 107 133 80 94 Test 09/23/16 06:46 09/23/16 08:49 White Blood Count 9.4 Red Blood Count 3.67 L Hemoglobin 10.6 L Hematocrit 33.5 L Mean Corpuscular Volume 91.3 Mean Corpuscular Hemoglobin 28.9 L Mean Corpuscular Hemoglobin Concent 31.6 L Red Cell Distribution Width 13.7 Platelet Count 263 Mean Platelet Volume 9.6 Neutrophils % 68.6 Lymphocytes % 20.7 Monocytes % 8.2 Eosinophils % 1.9 Basophils % 0.3 Nucleated Red Blood Cells % 0.0 Neutrophils # 6.5 Lymphocytes # 2.0 Monocytes # 0.8 Eosinophils # 0.2 Basophils # 0.0 Nucleated Red Blood Cells # 0.0 Sodium Level 142 Potassium Level 4.9 Chloride Level 114 H Carbon Dioxide Level 22 Anion Gap 11 Blood Urea Nitrogen 46 #H Creatinine 1.61 #H Glucose Level 95 # Calcium Level 9.2 Phosphorus Level 4.0 Magnesium Level 2.0 Bedside Glucose 104 Medications Medications Current Medications Aspirin (Halfprin) 81 mg DAILY PO Last administered on 09/23/16 11:39; Admin Dose 81 MG; Start 09/22/16 at 09:00 Clopidogrel Bisulfate (plaVIX) 75 mg DAILY PO Last administered on 09/23/16 11 :39; Admin Dose 75 MG; Start 09/22/16 at 09:00 Cyclosporine (Restasis) 1 drop Q12 BOTH EYES Last administered on 09/23/16 08: 46; Admin Dose 1 DROP; Start 09/21/16 at 21:00 Ondansetron HCl (Zofran Inj) 4 mg Q6H PRN IV NAUSEA AND/OR VOMITING; Start at 16:00 Acetaminophen (Tylenol Tab) 650 mg Q6H PRN PO PAIN LEVEL 1-3 OR FEVER; Start at 16:00 Acetaminophen (Tylenol Supp) 650 mg Q6H PRN [place] PAIN LEVEL 1-3 OR FEVER; Start 09/21/16 at 16:00 Acetaminophen/ Hydrocodone Bitart ([place] (5/325)) 1 tab Q6H PRN PO MODERATE PAIN LEVEL 4-6; Start 09/21/16 at 16:00 Morphine Sulfate (morphine) 2 mg Q4H PRN IV SEVERE PAIN LEVEL 7-10; Start 09/21 at 16:00 Docusate Sodium (Colace) 100 mg Q12H PRN PO CONSTIPATION; Start 09/21/16 at 16: 00 Bisacodyl (Dulcolax) 5 mg DAILY PRN PO CONSTIPATION; Start 09/21/16 at 16:00 Bisacodyl (Dulcolax Supp) 10 mg DAILY PRN [place] CONSTIPATION; Start 09/21/16 at 16 :00 Famotidine (Pepcid Iv) 20 mg QHS IV Last administered on 09/22/16 20:57; Admin Dose 20 MG; Start 09/21/16 at 21:00 Enoxaparin Sodium (Lovenox) 30 mg DAILY SC Last administered on 09/23/16 08:54 ; Admin Dose 30 MG; Start 09/22/16 at 09:00 Miscellaneous Information 1 ea NOTE XX ; Start 09/21/16 at 16:00 Glucose (Glutose) 15 gm Q15M PRN PO DECREASED GLUCOSE; Start 09/21/16 at 16:00 Glucose (Glutose) 22.5 gm Q15M PRN PO DECREASED GLUCOSE; Start 09/21/16 at 16: 00 Dextrose (D50w Syringe) 25 ml Q15M PRN IV DECREASED GLUCOSE Last administered on 09/22/16 05:26; Admin Dose 25 ML; Start 09/21/16 at 16:00 Dextrose (D50w Syringe) 50 ml Q15M PRN IV DECREASED GLUCOSE; Start 09/21/16 at 16:00 Glucagon (Glucagen) 1 mg Q15M PRN IM DECREASED GLUCOSE; Start 09/21/16 at 16:00 Glucose (Glutose) 15 gm Q15M PRN BUCCAL DECREASED GLUCOSE; Start 09/21/16 at 16 :00 Gabapentin (Neurontin) 100 mg BID PO Last administered on 09/23/16 11:40; Admin Dose 100 MG; Start 09/21/16 at 21:00 Metoprolol Succinate (Toprol Xl) 50 mg BID PO Last administered on 09/23/16 11 :41; Admin Dose 50 MG; Start 09/21/16 at 21:00 Solifenacin (Vesicare) 5 mg DAILY PO Last administered on 09/23/16 11:40; Admin Dose 5 MG; Start 09/22/16 at 09:00 Miscellaneous Information 2.5 ml DAILY XX ; Start 09/21/16 at 18:00; Status UNV Atorvastatin Calcium 80 mg 80 mg DAILY@21 PO ; Start 09/21/16 at 21:00 Ceftriaxone Sodium (Rocephin) 50 ml @ 100 mls/hr Q24H IVPB Last administered on 09/23/16 08:46; Admin Dose 100 MLS/HR; Start 09/22/16 at 09:00 Miscellaneous Information (*Order Clarification Bulletin) MEDICATION REQUIRES CLARIFICATION: Q8H XX ; Start 09/21/16 at 18:30 Hydralazine HCl (Apresoline) 10 mg Q6H PRN IV ELEVATED BP SBP>160; Start at 12:30 Insulin Aspart NOVOLOG *MILD* ALGORI... Q4 SC ; Start 09/22/16 at 16:00; Stop at 17:25 Sodium Chloride (NS) 1,000 ml @ 75 mls/hr [id number] IV Last administered on 09/23 04:30; Admin Dose 75 MLS/HR; Start 09/22/16 at 13:30; Stop 09/23/16 at 16: 09 JAXON OGDEN MD Sep 23, 2016 14:53
[2016-09-23] MEDS: ATORVASTATIN 80 MG TAB PO SCH (20:57)
[2016-09-23] MEDS: FAMOTIDINE 20 MG INJ IV SCH (20:57)
[2016-09-24] VITALS (10 sets, daily range): BP systolic 97–143; BP diastolic 57–84; PULSE 67–77; RESP 19–20
[2016-09-24] MEDS: OLOPATADINE XX SCH ×3 (02:30→17:50)
[2016-09-24] MEDS: SOLIFENACIN 5 MG TAB PO SCH (09:21)
[2016-09-24] MEDS: CEFTRIAXONE 1 GM/NS 50 ML IVPB SCH (09:21)
[2016-09-24] MEDS: ASPIRIN (EC) 81 MG TAB PO SCH (09:22)
[2016-09-24] MEDS: CLOPIDOGREL 75 MG TAB PO SCH (09:22)
[2016-09-24] MEDS: GABAPENTIN 100 MG CAP PO SCH ×2 (09:22→20:57)
[2016-09-24] MEDS: METOPROLOL (XL) 50 MG TAB PO SCH ×2 (09:23→20:57)
[2016-09-24] MEDS: CYCLOSPORINE 0.05% OPH DROPERETTE BOTH EYES SCH ×3 (09:25→21:06)
[2016-09-24] MEDS: ENOXAPARIN 30 MG/0.3 ML SYG SC SCH (09:42)
[2016-09-24] MEDS: INSULIN ASPART [NOVOLOG] 3 ML PEN SC SCH ×2 (11:56→18:18)
--- NOTE | 2016-09-24 12:15 | CONS ---
Date/Time of Note Date/Time of Note DATE: 09/24/16 TIME: 12:14 Assessment/Plan Assessment/Plan Additional Assessment/Plan 1. 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 2. The patient's renal ultrasound has been consistent with a past medical history of possible chronic kidney disease secondary to diabetic nephropathy. 3. History of hypertension. 4. History of diabetes mellitus type 2. 5. History of dementia. 6. History of chronic back pain secondary to compression fracture. 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, BUN/Cr imrpoving, pt had a Normal renal function on last admission, no labs today to review, will order AM labs tomorrow renal diet Renal US c/w medical renal disease will continue to follow up Consultation Date/Type/Reason Admit Date/Time Sep 21, 2016 at 14:27 Initial Consult Date September Type of Consultation: NEPHROLOGY Referring Provider: RAQUEL PROCTOR MD 24 HR Interval Summary Free Text/Dictation Cr improved, BP stable, no labs today to review yet, S/p ARU evaluation Exam/Review of Systems Vital Signs Vitals Vital Signs Date Time Temp Pulse Resp B/P Pulse Ox O2 Delivery O2 Flow Rate FiO2 09/24/16 12:04 77 09/24/16 07:35 97.9 19 97/57 98 09/23/16 20:00 Nasal Cannula 2.0 Intake and Output 09/23/16 09/23/16 09/24/16 15:00 23:00 07:00 Intake Total 450 ml 350 ml Output Total 600 ml Balance 450 ml -250 ml Exam GENERAL: Awake, alert, in moderate distress due to hypoxia. HEENT: Normal, oropharynx clear. NECK: Supple, no JVD, no lymphadenopathy. LUNGS: Clear to auscultation. No crackles, no wheezes. HEART: S1, S2, with regular rhythm, no murmur. ABDOMEN: Soft, nontender, nondistended. Bowel sounds are present. EXTREMITIES: No clubbing, cyanosis, edema. Results Result Diagram: 09/23/16 0646 09/23/16 0646 Results 24 hrs Laboratory Tests Test 09/23/16 17:13 09/24/16 11:50 Bedside Glucose 120 268 H Medications Medications Current Medications Aspirin (Halfprin) 81 mg DAILY PO Last administered on 09/24/16 09:22; Admin Dose 81 MG; Start 09/22/16 at 09:00 Clopidogrel Bisulfate (plaVIX) 75 mg DAILY PO Last administered on 09/24/16 09 :22; Admin Dose 75 MG; Start 09/22/16 at 09:00 Cyclosporine (Restasis) 1 drop Q12 BOTH EYES Last administered on 09/24/16 09: 25; Admin Dose 1 DROP; Start 09/21/16 at 21:00 Ondansetron HCl (Zofran Inj) 4 mg Q6H PRN IV NAUSEA AND/OR VOMITING; Start at 16:00 Acetaminophen (Tylenol Tab) 650 mg Q6H PRN PO PAIN LEVEL 1-3 OR FEVER; Start at 16:00 Acetaminophen (Tylenol Supp) 650 mg Q6H PRN [place] PAIN LEVEL 1-3 OR FEVER; Start 09/21/16 at 16:00 Acetaminophen/ Hydrocodone Bitart ([place] (5/325)) 1 tab Q6H PRN PO MODERATE PAIN LEVEL 4-6; Start 09/21/16 at 16:00 Morphine Sulfate (morphine) 2 mg Q4H PRN IV SEVERE PAIN LEVEL 7-10; Start 09/21 at 16:00 Docusate Sodium (Colace) 100 mg Q12H PRN PO CONSTIPATION; Start 09/21/16 at 16: 00 Bisacodyl (Dulcolax) 5 mg DAILY PRN PO CONSTIPATION; Start 09/21/16 at 16:00 Bisacodyl (Dulcolax Supp) 10 mg DAILY PRN [place] CONSTIPATION; Start 09/21/16 at 16 :00 Famotidine (Pepcid Iv) 20 mg QHS IV Last administered on 09/23/16 20:57; Admin Dose 20 MG; Start 09/21/16 at 21:00 Enoxaparin Sodium (Lovenox) 30 mg DAILY SC Last administered on 09/24/16 09:42 ; Admin Dose 30 MG; Start 09/22/16 at 09:00 Miscellaneous Information 1 ea NOTE XX ; Start 09/21/16 at 16:00 Glucose (Glutose) 15 gm Q15M PRN PO DECREASED GLUCOSE; Start 09/21/16 at 16:00 Glucose (Glutose) 22.5 gm Q15M PRN PO DECREASED GLUCOSE; Start 09/21/16 at 16: 00 Dextrose (D50w Syringe) 25 ml Q15M PRN IV DECREASED GLUCOSE Last administered on 09/22/16 05:26; Admin Dose 25 ML; Start 09/21/16 at 16:00 Dextrose (D50w Syringe) 50 ml Q15M PRN IV DECREASED GLUCOSE; Start 09/21/16 at 16:00 Glucagon (Glucagen) 1 mg Q15M PRN IM DECREASED GLUCOSE; Start 09/21/16 at 16:00 Glucose (Glutose) 15 gm Q15M PRN BUCCAL DECREASED GLUCOSE; Start 09/21/16 at 16 :00 Gabapentin (Neurontin) 100 mg BID PO Last administered on 09/24/16 09:22; Admin Dose 100 MG; Start 09/21/16 at 21:00 Metoprolol Succinate (Toprol Xl) 50 mg BID PO Last administered on 09/24/16 09 :23; Admin Dose 50 MG; Start 09/21/16 at 21:00 Solifenacin (Vesicare) 5 mg DAILY PO Last administered on 09/24/16 09:21; Admin Dose 5 MG; Start 09/22/16 at 09:00 Miscellaneous Information 2.5 ml DAILY XX ; Start 09/21/16 at 18:00; Status UNV Atorvastatin Calcium 80 mg 80 mg DAILY@21 PO Last administered on 09/23/16 20: 57; Admin Dose 80 MG; Start 09/21/16 at 21:00 Ceftriaxone Sodium (Rocephin) 50 ml @ 100 mls/hr Q24H IVPB Last administered on 09/24/16 09:21; Admin Dose 100 MLS/HR; Start 09/22/16 at 09:00 Miscellaneous Information (*Order Clarification Bulletin) MEDICATION REQUIRES CLARIFICATION: Q8H XX ; Start 09/21/16 at 18:30 Hydralazine HCl (Apresoline) 10 mg Q6H PRN IV ELEVATED BP SBP>160; Start at 12:30 HUMBERTO LING MD Sep 24, 2016 12:15
--- NOTE | 2016-09-24 16:30 | PN ---
Date/Time of Note Date/Time of Note DATE: 09/24/16 TIME: 16:30 Assessment/Plan VTE Prophylaxis VTE Prophylaxis Intervention: LMWH (renal dose.) Lines/Catheters [facility] Saline Lock Urinary Cath still in place: Yes Reason Cath still needed: other (indicate) Assessment/Plan Chief Complaint/Hosp Course 1. Acute encephalopathy, most probably secondary to underlying uremia from worsening renal function along with a combination of possible underlying urinary tract infection. Brain CT scan negative for any acute findings. However, brain CT showed small scattered foci of subacute white matter infarcts. 2. Acute kidney injury. 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 However, the patient current BUN and creatinine are elevated. This could be most probably secondary to nephrotoxicity from NSAIDs and NEGIN inhibitors. These have been put on hold. Nephrology following the patient. We will avoid any nephrotoxic medications. 3. Essential hypertension. Continue antihypertensives. 4. Diabetes mellitus, most probably type 2. Continue sliding scale insulin. Hemoglobin A1c 8.5. 5. Deconditioning. Physical therapy. Acute rehabilitation evaluating the patient. 6. Hypothyroidism. Continue Synthroid. 7. Recent history of shingles. Currently stable. 8. Fluid, electrolytes and nutrition. Mechanical soft diet. 9. Deep venous thrombosis prophylaxis. Subcutaneous Lovenox (renal dose). 10. Gastrointestinal prophylaxis. Histamine-2 receptor blockers. PLAN: Continue inpatient monitoring. Await transfer to acute rehabilitation facility. Adjust insulin dosing to obtain optimal blood sugar control. The case was discussed with Dr. Ascencio. Problems: Subjective 24 Hr Interval Summary Free Text/Dictation Patient is currently more awake and alert. Tolerating oral intake. Sugars running high. Exam/Review of Systems Vital Signs Vitals Vital Signs Date Time Temp Pulse Resp B/P Pulse Ox O2 Delivery O2 Flow Rate FiO2 09/24/16 16:08 68 09/24/16 15:37 98.3 19 117/67 98 09/24/16 07:40 Nasal Cannula 2.0 Intake and Output 09/23/16 09/23/16 09/24/16 15:00 23:00 07:00 Intake Total 450 ml 350 ml Output Total 600 ml Balance 450 ml -250 ml Exam GENERAL: This is an obese Syri[place] female lying in bed in no apparent distress. HEENT: Head normocephalic and atraumatic. Eyes: Anicteric sclerae. Conjunctivae clear. ENT: Nasal septum is midline. Oral mucosa is dry. NECK: Supple. No JVD noticed. RESPIRATORY: Bilaterally diminished breath sounds. No adventitious breath sounds heard. No use of accessory muscles. CARDIAC: Regular rate and rhythm. S1 and S2 heard. ABDOMEN: Soft, nontender and nondistended. Bowel sounds positive in all 4 quadrants. GENITOURINARY: Deferred. EXTREMITIES: No cyanosis, no clubbing, no edema. Peripheral pulses palpable. NEUROLOGIC: The patient is awake and alert. Oriented to self. Moves all 4 extremities. Results Result Diagram: 09/23/1646 09/23/16645 Results 24 hrs Laboratory Tests Test 09/23/16 17:13 09/24/16 11:50 Bedside Glucose 120 268 H Medications Medications Current Medications Aspirin (Halfprin) 81 mg DAILY PO Last administered on 09/24/16 09:22; Admin Dose 81 MG; Start 09/22/16 at 09:00 Clopidogrel Bisulfate (plaVIX) 75 mg DAILY PO Last administered on 09/24/16 09 :22; Admin Dose 75 MG; Start 09/22/16 at 09:00 Cyclosporine (Restasis) 1 drop Q12 BOTH EYES Last administered on 09/24/16 09: 25; Admin Dose 1 DROP; Start 09/21/16 at 21:00 Ondansetron HCl (Zofran Inj) 4 mg Q6H PRN IV NAUSEA AND/OR VOMITING; Start at 16:00 Acetaminophen (Tylenol Tab) 650 mg Q6H PRN PO PAIN LEVEL 1-3 OR FEVER; Start at 16:00 Acetaminophen (Tylenol Supp) [address] PAIN LEVEL 1-3 OR FEVER; Start 09/21/16 at 16:00 Acetaminophen/ Hydrocodone Bitart ([place] (5/325)) 1 tab Q6H PRN PO MODERATE PAIN LEVEL 4-6; Start 09/21/16 at 16:00 Morphine Sulfate (morphine) 2 mg Q4H PRN IV SEVERE PAIN LEVEL 7-10; Start 09/21 at 16:00 Docusate Sodium (Colace) 100 mg Q12H PRN PO CONSTIPATION; Start 09/21/16 at 16: 00 Bisacodyl (Dulcolax) 5 mg DAILY PRN PO CONSTIPATION; Start 09/21/16 at 16:00 Bisacodyl (Dulcolax Supp) [address] CONSTIPATION; Start 09/21/16 at 16 :00 Enoxaparin Sodium (Lovenox) 30 mg DAILY SC Last administered on 09/24/16 09:42 ; Admin Dose 30 MG; Start 09/22/16 at 09:00 Miscellaneous Information 1 ea NOTE XX ; Start 09/21/16 at 16:00 Glucose (Glutose) 15 gm Q15M PRN PO DECREASED GLUCOSE; Start 09/21/16 at 16:00 Glucose (Glutose) 22.5 gm Q15M PRN PO DECREASED GLUCOSE; Start 09/21/16 at 16: 00 Dextrose (D50w Syringe) 25 ml Q15M PRN IV DECREASED GLUCOSE Last administered on 09/22/16 05:26; Admin Dose 25 ML; Start 09/21/16 at 16:00 Dextrose (D50w Syringe) 50 ml Q15M PRN IV DECREASED GLUCOSE; Start 09/21/16 at 16:00 Glucagon (Glucagen) 1 mg Q15M PRN IM DECREASED GLUCOSE; Start 09/21/16 at 16:00 Glucose (Glutose) 15 gm Q15M PRN BUCCAL DECREASED GLUCOSE; Start 09/21/16 at 16 :00 Gabapentin (Neurontin) 100 mg BID PO Last administered on 09/24/16 09:22; Admin Dose 100 MG; Start 09/21/16 at 21:00 Metoprolol Succinate (Toprol Xl) 50 mg BID PO Last administered on 09/24/16 09 :23; Admin Dose 50 MG; Start 09/21/16 at 21:00 Solifenacin (Vesicare) 5 mg DAILY PO Last administered on 09/24/16 09:21; Admin Dose 5 MG; Start 09/22/16 at 09:00 Miscellaneous Information 2.5 ml DAILY XX ; Start 09/21/16 at 18:00; Status UNV Atorvastatin Calcium 80 mg 80 mg DAILY@21 PO Last administered on 09/23/16 20: 57; Admin Dose 80 MG; Start 09/21/16 at 21:00 Ceftriaxone Sodium (Rocephin) 50 ml @ 100 mls/hr Q24H IVPB Last administered on 09/24/16 09:21; Admin Dose 100 MLS/HR; Start 09/22/16 at 09:00 Miscellaneous Information (*Order Clarification Bulletin) MEDICATION REQUIRES CLARIFICATION: Q8H XX ; Start 09/21/16 at 18:30 Hydralazine HCl (Apresoline) 10 mg Q6H PRN IV ELEVATED BP SBP>160; Start at 12:30 Famotidine (Pepcid) 20 mg QHS PO ; Start 09/24/16 at 21:00 TETE MCGRAW NP Sep 24, 2016 16:30
[2016-09-24] MEDS: FAMOTIDINE 20 MG TAB PO SCH (20:57)
[2016-09-24] MEDS: ATORVASTATIN 80 MG TAB PO SCH (20:57)
[2016-09-25] VITALS (15 sets, daily range): BP systolic 107–163; BP diastolic 58–93; PULSE 66–72; RESP 18–20
[2016-09-25] MEDS: OLOPATADINE XX SCH ×3 (02:30→17:04)
[2016-09-25 07:46] LABS: ADD SCAN DIFF NO
[2016-09-25 07:51] LABS: BASOPHILS % 0.6 % (0.0-2.0); EOSINOPHILS # 0.4 10^3/ul (0.0-0.5); EOSINOPHILS % 4.8 % (0.0-7.0); HEMOGLOBIN 11.7 g/dl (12.0-16.0); LYMPHOCYTES % 28.1 % (15.0-51.0); MEAN CORPUSCULAR HGB CONC 32.5 g/dl (32.0-37.0); MEAN CORPUSCULAR VOLUME 89.1 fl (82.0-101.0); MEAN PLATELET VOLUME 9.5 fl (7.4-10.4); MONOCYTE # 0.7 10^3/ul (0.3-0.9); MONOCYTES % 9.9 % (0.0-11.0); NEUTROPHIL # 4.1 10^3/ul (1.6-7.5); PLATELET COUNT 293 10^3/UL (140-415); RED BLOOD COUNT 4.04 10^6/ul (4.20-5.40); RED CELL DISTRIBUTION WIDTH 13.3 % (11.5-14.5); WHITE BLOOD COUNT 7.3 10^3/ul (4.8-10.8)
[2016-09-25 08:14] LABS: MAGNESIUM 1.7 mg/dl (1.7-2.5); PHOSPHORUS 4.9 mg/dl (2.5-4.9)
[2016-09-25 08:22] LABS: ALBUMIN 3.5 g/dl (3.3-4.9); ALBUMIN/GLOBULIN RATIO 0.94; CALCIUM 9.8 mg/dl (8.4-10.2); CREATININE 1.29 mg/dl (0.44-1.00); POTASSIUM 4.6 mmol/L (3.5-5.1); TOTAL PROTEIN 7.2 g/dl (6.1-8.1)
[2016-09-25] MEDS: SOLIFENACIN 5 MG TAB PO SCH (08:22)
[2016-09-25] MEDS: CLOPIDOGREL 75 MG TAB PO SCH (08:22)
[2016-09-25] MEDS: GABAPENTIN 100 MG CAP PO SCH ×2 (08:22→21:23)
[2016-09-25] MEDS: ASPIRIN (EC) 81 MG TAB PO SCH (08:22)
[2016-09-25] MEDS: METOPROLOL (XL) 50 MG TAB PO SCH ×2 (08:23→21:24)
[2016-09-25] MEDS: CEFTRIAXONE 1 GM/NS 50 ML IVPB SCH (08:23)
[2016-09-25] MEDS: ENOXAPARIN 30 MG/0.3 ML SYG SC SCH (08:35)
--- NOTE | 2016-09-25 12:00 | CONS ---
Date/Time of Note Date/Time of Note DATE: 09/25/16 TIME: 11:59 Assessment/Plan Assessment/Plan Additional Assessment/Plan 1. 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 2. The patient's renal ultrasound has been consistent with a past medical history of possible chronic kidney disease secondary to diabetic nephropathy. 3. History of hypertension. 4. History of diabetes mellitus type 2. 5. History of dementia. 6. History of chronic back pain secondary to compression fracture. 7. 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 PLAN: s/p IV fluids, BUN/Cr imrpoving, pt had a Normal renal function on last admission, renal diet Renal US c/w medical renal disease will continue to follow up Consultation Date/Type/Reason Admit Date/Time Sep 21, 2016 at 14:27 Initial Consult Date September Type of Consultation: NEPHROLOGY Referring Provider: RAQUEL PROCTOR MD 24 HR Interval Summary Free Text/Dictation no acute events, Cr improved to 1.26 Exam/Review of Systems Vital Signs Vitals Vital Signs Date Time Temp Pulse Resp B/P Pulse Ox O2 Delivery O2 Flow Rate FiO2 09/25/16 08:14 72 09/25/16 08:08 98.6 18 138/66 99 09/25/16 07:50 Nasal Cannula 2.0 Intake and Output 09/24/16 09/24/16 09/25/16 15:00 23:00 07:00 Intake Total 550 ml 250 ml Output Total 300 ml 850 ml Balance 250 ml -600 ml Exam GENERAL: Awake, alert, in moderate distress due to hypoxia. HEENT: Normal, oropharynx clear. NECK: Supple, no JVD, no lymphadenopathy. LUNGS: Clear to auscultation. No crackles, no wheezes. HEART: S1, S2, with regular rhythm, no murmur. ABDOMEN: Soft, nontender, nondistended. Bowel sounds are present. EXTREMITIES: No clubbing, cyanosis, edema. Results Result Diagram: 09/25/16 0612 09/25/1612 Results 24 hrs Laboratory Tests Test 09/24/16 17:56 09/25/16 06:12 Bedside Glucose 154 White Blood Count 7.3 # Red Blood Count 4.04 L Hemoglobin 11.7 L Hematocrit 36.0 L Mean Corpuscular Volume 89.1 Mean Corpuscular Hemoglobin 29.0 Mean Corpuscular Hemoglobin Concent 32.5 Red Cell Distribution Width 13.3 Platelet Count 293 Mean Platelet Volume 9.5 Neutrophils % 56.0 Lymphocytes % 28.1 Monocytes % 9.9 Eosinophils % 4.8 Basophils % 0.6 Nucleated Red Blood Cells % 0.0 Neutrophils # 4.1 Lymphocytes # 2.0 Monocytes # 0.7 Eosinophils # 0.4 Basophils # 0.0 Nucleated Red Blood Cells # 0.0 Sodium Level 137 Potassium Level 4.6 Chloride Level 108 Carbon Dioxide Level 22 Anion Gap 12 Blood Urea Nitrogen 32 #H Creatinine 1.29 H Glucose Level 281 #H Calcium Level 9.8 Phosphorus Level 4.9 Magnesium Level 1.7 Total Bilirubin 0.0 L Direct Bilirubin 0.00 Indirect Bilirubin 0.0 Aspartate Amino Transf (AST/SGOT) 42 Alanine Aminotransferase (ALT/SGPT) 52 Alkaline Phosphatase 149 H Total Protein 7.2 Albumin 3.5 Globulin 3.70 H Albumin/Globulin Ratio 0.94 Medications Medications Current Medications Aspirin (Halfprin) 81 mg DAILY PO Last administered on 09/25/16 08:22; Admin Dose 81 MG; Start 09/22/16 at 09:00 Clopidogrel Bisulfate (plaVIX) 75 mg DAILY PO Last administered on 09/25/16 08 :22; Admin Dose 75 MG; Start 09/22/16 at 09:00 Cyclosporine (Restasis) 1 drop Q12 BOTH EYES Last administered on 09/24/16 21: 06; Admin Dose 1 DROP; Start 09/21/16 at 21:00 Ondansetron HCl (Zofran Inj) 4 mg Q6H PRN IV NAUSEA AND/OR VOMITING; Start at 16:00 Acetaminophen (Tylenol Tab) 650 mg Q6H PRN PO PAIN LEVEL 1-3 OR FEVER; Start at 16:00 Acetaminophen (Tylenol Supp) 650 mg Q6H PRN [place] PAIN LEVEL 1-3 OR FEVER; Start 09/21/16 at 16:00 Acetaminophen/ Hydrocodone Bitart ([place] (5/325)) 1 tab Q6H PRN PO MODERATE PAIN LEVEL 4-6; Start 09/21/16 at 16:00 Morphine Sulfate (morphine) 2 mg Q4H PRN IV SEVERE PAIN LEVEL 7-10; Start 09/21 at 16:00 Docusate Sodium (Colace) 100 mg Q12H PRN PO CONSTIPATION; Start 09/21/16 at 16: 00 Bisacodyl (Dulcolax) 5 mg DAILY PRN PO CONSTIPATION; Start 09/21/16 at 16:00 Bisacodyl (Dulcolax Supp) 10 mg DAILY PRN [place] CONSTIPATION; Start 09/21/16 at 16 :00 Enoxaparin Sodium (Lovenox) 30 mg DAILY SC Last administered on 09/25/16 08:35 ; Admin Dose 30 MG; Start 09/22/16 at 09:00 Miscellaneous Information 1 ea NOTE XX ; Start 09/21/16 at 16:00 Glucose (Glutose) 15 gm Q15M PRN PO DECREASED GLUCOSE; Start 09/21/16 at 16:00 Glucose (Glutose) 22.5 gm Q15M PRN PO DECREASED GLUCOSE; Start 09/21/16 at 16: 00 Dextrose (D50w Syringe) 25 ml Q15M PRN IV DECREASED GLUCOSE Last administered on 09/22/16 05:26; Admin Dose 25 ML; Start 09/21/16 at 16:00 Dextrose (D50w Syringe) 50 ml Q15M PRN IV DECREASED GLUCOSE; Start 09/21/16 at 16:00 Glucagon (Glucagen) 1 mg Q15M PRN IM DECREASED GLUCOSE; Start 09/21/16 at 16:00 Glucose (Glutose) 15 gm Q15M PRN BUCCAL DECREASED GLUCOSE; Start 09/21/16 at 16 :00 Gabapentin (Neurontin) 100 mg BID PO Last administered on 09/25/16 08:22; Admin Dose 100 MG; Start 09/21/16 at 21:00 Metoprolol Succinate (Toprol Xl) 50 mg BID PO Last administered on 09/25/16 08 :23; Admin Dose 50 MG; Start 09/21/16 at 21:00 Solifenacin (Vesicare) 5 mg DAILY PO Last administered on 09/25/16 08:22; Admin Dose 5 MG; Start 09/22/16 at 09:00 Miscellaneous Information 2.5 ml DAILY XX ; Start 09/21/16 at 18:00; Status UNV Atorvastatin Calcium 80 mg 80 mg DAILY@21 PO Last administered on 09/24/16 20: 57; Admin Dose 80 MG; Start 09/21/16 at 21:00 Ceftriaxone Sodium (Rocephin) 50 ml @ 100 mls/hr Q24H IVPB Last administered on 09/25/16 08:23; Admin Dose 100 MLS/HR; Start 09/22/16 at 09:00 Miscellaneous Information (*Order Clarification Bulletin) MEDICATION REQUIRES CLARIFICATION: Q8H XX ; Start 09/21/16 at 18:30 Hydralazine HCl (Apresoline) 10 mg Q6H PRN IV ELEVATED BP SBP>160; Start at 12:30 Famotidine (Pepcid) 20 mg QHS PO Last administered on 09/24/16 20:57; Admin Dose 20 MG; Start 09/24/16 at 21:00 HUMBERTO LING MD Sep 25, 2016 12:00
--- NOTE | 2016-09-25 12:40 | PN ---
Date/Time of Note Date/Time of Note DATE: 09/25/16 TIME: 12:37 Assessment/Plan VTE Prophylaxis VTE Prophylaxis Intervention: LMWH Lines/Catheters IV [facility] (from [facility] Saline Lock Urinary Cath still in place: Yes Reason Cath still needed: urinary retention Assessment/Plan Chief Complaint/Hosp Course Assessment/Plan: 1. Acute encephalopathy, most probably secondary to underlying uremia from worsening renal function along with a combination of possible underlying urinary tract infection. Brain CT scan negative for any acute findings. However, brain CT showed small scattered foci of subacute white matter infarcts. - Continue diet, f/u speech therapy evaluation rec's 2. Acute kidney injury. 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 However, the patient current BUN and creatinine are elevated. This could be most probably secondary to nephrotoxicity from NSAIDs and NEGIN inhibitors. These have been put on hold. Nephrology following the patient. - We will avoid any nephrotoxic medications. 3. Essential hypertension. Continue antihypertensives. 4. Diabetes mellitus, most probably type 2. Continue sliding scale insulin, add home aspart and lantus today. Hemoglobin A1c 8.5. 5. Positive urinalysis, urine leukocyte esterase 2+, urine microscopic WBC greater than 200. However, the patient's urine culture has been negative so far. Continue antibiotics for any underlying urinary tract infection. 6. Hypothyroidism. Continue Synthroid. 7. Recent history of shingles. Currently stable. 8. Fluid, electrolytes and nutrition. Continue n.p.o. Await evaluation by speech therapy. 9. Deep venous thrombosis prophylaxis. Subcutaneous Lovenox (renal dose). 10. Gastrointestinal prophylaxis. Histamine-2 receptor blockers. Problems: Subjective 24 Hr Interval Summary Free Text/Dictation No acute events overnight. Exam/Review of Systems Vital Signs Vitals Vital Signs Date Time Temp Pulse Resp B/P Pulse Ox O2 Delivery O2 Flow Rate FiO2 09/25/16 12:16 66 09/25/16 12:13 98.2 18 163/93 98 09/25/16 07:50 Nasal Cannula 2.0 Intake and Output 09/24/16 09/24/16 09/25/16 15:00 23:00 07:00 Intake Total 550 ml 250 ml Output Total 300 ml 850 ml Balance 250 ml -600 ml Exam Constitutional: other (not oriented) Psych: confusion Head: atraumatic, normocephalic Eyes: EOMI, PERRL Respiratory: clear to auscultation, normal air movement Cardiovascular: nl pulses, regular rate and rhythm Gastrointestinal: non-tender, soft Extremities: normal pulses Results Result Diagram: 09/25/1661109/25/16 0612 Results 24 hrs Laboratory Tests Test 09/24/16 17:56 09/25/16 06:12 Bedside Glucose 154 White Blood Count 7.3 # Red Blood Count 4.04 L Hemoglobin 11.7 L Hematocrit 36.0 L Mean Corpuscular Volume 89.1 Mean Corpuscular Hemoglobin 29.0 Mean Corpuscular Hemoglobin Concent 32.5 Red Cell Distribution Width 13.3 Platelet Count 293 Mean Platelet Volume 9.5 Neutrophils % 56.0 Lymphocytes % 28.1 Monocytes % 9.9 Eosinophils % 4.8 Basophils % 0.6 Nucleated Red Blood Cells % 0.0 Neutrophils # 4.1 Lymphocytes # 2.0 Monocytes # 0.7 Eosinophils # 0.4 Basophils # 0.0 Nucleated Red Blood Cells # 0.0 Sodium Level 137 Potassium Level 4.6 Chloride Level 108 Carbon Dioxide Level 22 Anion Gap 12 Blood Urea Nitrogen 32 #H Creatinine 1.29 H Glucose Level 281 #H Calcium Level 9.8 Phosphorus Level 4.9 Magnesium Level 1.7 Total Bilirubin 0.0 L Direct Bilirubin 0.00 Indirect Bilirubin 0.0 Aspartate Amino Transf (AST/SGOT) 42 Alanine Aminotransferase (ALT/SGPT) 52 Alkaline Phosphatase 149 H Total Protein 7.2 Albumin 3.5 Globulin 3.70 H Albumin/Globulin Ratio 0.94 Medications Medications Current Medications Aspirin (Halfprin) 81 mg DAILY PO Last administered on 09/25/16 08:22; Admin Dose 81 MG; Start 09/22/16 at 09:00 Clopidogrel Bisulfate (plaVIX) 75 mg DAILY PO Last administered on 09/25/16 08 :22; Admin Dose 75 MG; Start 09/22/16 at 09:00 Cyclosporine (Restasis) 1 drop Q12 BOTH EYES Last administered on 09/24/16 21: 06; Admin Dose 1 DROP; Start 09/21/16 at 21:00 Ondansetron HCl (Zofran Inj) 4 mg Q6H PRN IV NAUSEA AND/OR VOMITING; Start at 16:00 Acetaminophen (Tylenol Tab) 650 mg Q6H PRN PO PAIN LEVEL 1-3 OR FEVER; Start at 16:00 Acetaminophen (Tylenol Supp) 650 mg Q6H PRN [place] PAIN LEVEL 1-3 OR FEVER; Start 09/21/16 at 16:00 Acetaminophen/ Hydrocodone Bitart ([place] (5/325)) 1 tab Q6H PRN PO MODERATE PAIN LEVEL 4-6; Start 09/21/16 at 16:00 Morphine Sulfate (morphine) 2 mg Q4H PRN IV SEVERE PAIN LEVEL 7-10; Start 09/21 at 16:00 Docusate Sodium (Colace) 100 mg Q12H PRN PO CONSTIPATION; Start 09/21/16 at 16: 00 Bisacodyl (Dulcolax) 5 mg DAILY PRN PO CONSTIPATION; Start 09/21/16 at 16:00 Bisacodyl (Dulcolax Supp) 10 mg DAILY PRN [place] CONSTIPATION; Start 09/21/16 at 16 :00 Enoxaparin Sodium (Lovenox) 30 mg DAILY SC Last administered on 09/25/16 08:35 ; Admin Dose 30 MG; Start 09/22/16 at 09:00 Miscellaneous Information 1 ea NOTE XX ; Start 09/21/16 at 16:00 Glucose (Glutose) 15 gm Q15M PRN PO DECREASED GLUCOSE; Start 09/21/16 at 16:00 Glucose (Glutose) 22.5 gm Q15M PRN PO DECREASED GLUCOSE; Start 09/21/16 at 16: 00 Dextrose (D50w Syringe) 25 ml Q15M PRN IV DECREASED GLUCOSE Last administered on 09/22/16 05:26; Admin Dose 25 ML; Start 09/21/16 at 16:00 Dextrose (D50w Syringe) 50 ml Q15M PRN IV DECREASED GLUCOSE; Start 09/21/16 at 16:00 Glucagon (Glucagen) 1 mg Q15M PRN IM DECREASED GLUCOSE; Start 09/21/16 at 16:00 Glucose (Glutose) 15 gm Q15M PRN BUCCAL DECREASED GLUCOSE; Start 09/21/16 at 16 :00 Gabapentin (Neurontin) 100 mg BID PO Last administered on 09/25/16 08:22; Admin Dose 100 MG; Start 09/21/16 at 21:00 Metoprolol Succinate (Toprol Xl) 50 mg BID PO Last administered on 09/25/16 08 :23; Admin Dose 50 MG; Start 09/21/16 at 21:00 Solifenacin (Vesicare) 5 mg DAILY PO Last administered on 09/25/16 08:22; Admin Dose 5 MG; Start 09/22/16 at 09:00 Miscellaneous Information 2.5 ml DAILY XX ; Start 09/21/16 at 18:00; Status UNV Atorvastatin Calcium 80 mg 80 mg DAILY@21 PO Last administered on 09/24/16 20: 57; Admin Dose 80 MG; Start 09/21/16 at 21:00 Ceftriaxone Sodium (Rocephin) 50 ml @ 100 mls/hr Q24H IVPB Last administered on 09/25/16 08:23; Admin Dose 100 MLS/HR; Start 09/22/16 at 09:00 Miscellaneous Information (*Order Clarification Bulletin) MEDICATION REQUIRES CLARIFICATION: Q8H XX ; Start 09/21/16 at 18:30 Hydralazine HCl (Apresoline) 10 mg Q6H PRN IV ELEVATED BP SBP>160; Start at 12:30 Famotidine (Pepcid) 20 mg QHS PO Last administered on 09/24/16 20:57; Admin Dose 20 MG; Start 09/24/16 at 21:00 Miscellaneous Information (* Miscellaneous Pharmacy Order) HYPOGLYCEMIA PROTOCOL w... ONCE ONCE XX ; Start 09/25/16 at 12:30; Stop 09/25/16 at 12:31; Status UNV Miscellaneous Information (* Miscellaneous Pharmacy Order) Discontinue Glyburide , Glipizide,... ONCE ONCE XX ; Start 09/25/16 at 12:30; Stop 09/25/16 at 12:31 ; Status UNV Miscellaneous Information (* Miscellaneous Pharmacy Order) Discontinue all previ... ONCE ONCE XX ; Start 09/25/16 at 12:30; Stop 09/25/16 at 12:31; Status UNV Diagnostic Test (Pha) (Accu-Chek) 1 XX ; Start 09/26/16 at 02:00; Status UNV TODD DE LA CRUZ Sep 25, 2016 12:40
[2016-09-25] MEDS: CYCLOSPORINE 0.05% OPH DROPERETTE BOTH EYES SCH ×2 (13:15→21:23)
[2016-09-25] MEDS: INSULIN ASPART [NOVOLOG] 3 ML PEN SC SCH ×4 (13:19→20:56)
[2016-09-25] MEDS: INSULIN GLARGINE [LANtus] 3 ML PEN SC SCH (15:09)
[2016-09-25] MEDS: ATORVASTATIN 80 MG TAB PO SCH (21:23)
[2016-09-25] MEDS: FAMOTIDINE 20 MG TAB PO SCH (21:25)
[2016-09-26] VITALS (12 sets, daily range): BP systolic 108–141; BP diastolic 54–66; PULSE 69–80; RESP 18–20
[2016-09-26] MEDS: ACCU-CHEK XX SCH (02:00)
[2016-09-26] MEDS: OLOPATADINE XX SCH ×3 (02:30→17:41)
[2016-09-26] MEDS: CLOPIDOGREL 75 MG TAB PO SCH (08:38)
[2016-09-26] MEDS: METOPROLOL (XL) 50 MG TAB PO SCH ×2 (08:39→21:48)
[2016-09-26] MEDS: ASPIRIN (EC) 81 MG TAB PO SCH (08:40)
[2016-09-26] MEDS: CEFTRIAXONE 1 GM/NS 50 ML IVPB SCH (08:40)
[2016-09-26] MEDS: SOLIFENACIN 5 MG TAB PO SCH (08:40)
[2016-09-26] MEDS: GABAPENTIN 100 MG CAP PO SCH ×2 (08:40→21:47)
[2016-09-26] MEDS: CYCLOSPORINE 0.05% OPH DROPERETTE BOTH EYES SCH ×2 (08:41→21:47)
[2016-09-26] MEDS: ENOXAPARIN 30 MG/0.3 ML SYG SC SCH (08:44)
[2016-09-26] MEDS: INSULIN GLARGINE [LANtus] 3 ML PEN SC SCH (08:45)
[2016-09-26] MEDS: INSULIN ASPART [NOVOLOG] 3 ML PEN SC SCH ×7 (08:46→21:00)
--- NOTE | 2016-09-26 09:31 | PN ---
Date/Time of Note Date/Time of Note DATE: 09/26/16 TIME: 09:29 Assessment/Plan VTE Prophylaxis VTE Prophylaxis Intervention: LMWH Lines/Catheters [facility] Type (from [facility] Peripheral IV Urinary Cath still in place: Yes Reason Cath still needed: urinary retention Assessment/Plan Chief Complaint/Hosp Course Assessment/Plan: 1. Acute encephalopathy, most probably secondary to underlying uremia from worsening renal function along with a combination of possible underlying urinary tract infection. Brain CT scan negative for any acute findings. However, brain CT showed small scattered foci of subacute white matter infarcts. - Continue diet, PT, f/u speech therapy evaluation rec's 2. Acute kidney injury. 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 However, the patient current BUN and creatinine are elevated. This could be most probably secondary to nephrotoxicity from NSAIDs and NEGIN inhibitors. These have been put on hold. Nephrology following the patient. - We will avoid any nephrotoxic medications. 3. Essential hypertension. Continue antihypertensives. 4. Diabetes mellitus, most probably type 2 - FS improved - Continue sliding scale insulin,home aspart and lantus. Hemoglobin A1c 8.5. 5. Positive urinalysis, urine leukocyte esterase 2+, urine microscopic WBC greater than 200. However, the patient's urine culture has been negative so far. Continue antibiotics for any underlying urinary tract infection. 6. Hypothyroidism. Continue Synthroid. 7. Recent history of shingles. Currently stable. 8. Fluid, electrolytes and nutrition. Continue n.p.o. Await evaluation by speech therapy. 9. Deep venous thrombosis prophylaxis. Subcutaneous Lovenox (renal dose). 10. Gastrointestinal prophylaxis. Histamine-2 receptor blockers. Problems: Subjective 24 Hr Interval Summary Free Text/Dictation Pt working with PT presently, no acute events overnight. Exam/Review of Systems Vital Signs Vitals Vital Signs Date Time Temp Pulse Resp B/P Pulse Ox O2 Delivery O2 Flow Rate FiO2 09/26/16 09:09 69 09/26/16 08:23 98.5 20 141/63 96 09/25/16 20:00 Nasal Cannula 2.0 Intake and Output 09/25/16 09/25/16 09/26/16 15:00 23:00 07:00 Intake Total 1190 ml Output Total 650 ml Balance 540 ml Exam Constitutional: other (not oriented) Psych: confusion Head: atraumatic, normocephalic Eyes: EOMI, PERRL Respiratory: clear to auscultation, normal air movement Cardiovascular: nl pulses, regular rate and rhythm Gastrointestinal: non-tender, soft Extremities: normal pulses Results Result Diagram: 09/25/1612 09/25/16 0612 Results 24 hrs Laboratory Tests Test 09/25/16 12:01 09/25/16 13:10 09/25/16 15:01 09/25/16 17:22 Bedside Glucose 372 H 383 H 264 H 145 Test 09/25/16 20:50 09/26/16 07:48 Bedside Glucose 174 243 H Medications Medications Current Medications Aspirin (Halfprin) 81 mg DAILY PO Last administered on 09/26/16 08:40; Admin Dose 81 MG; Start 09/22/16 at 09:00 Clopidogrel Bisulfate (plaVIX) 75 mg DAILY PO Last administered on 09/26/16 08 :38; Admin Dose 75 MG; Start 09/22/16 at 09:00 Cyclosporine (Restasis) 1 drop Q12 BOTH EYES Last administered on 09/26/16 08: 41; Admin Dose 1 DROP; Start 09/21/16 at 21:00 Ondansetron HCl (Zofran Inj) 4 mg Q6H PRN IV NAUSEA AND/OR VOMITING; Start at 16:00 Acetaminophen (Tylenol Tab) 650 mg Q6H PRN PO PAIN LEVEL 1-3 OR FEVER; Start at 16:00 Acetaminophen (Tylenol Supp) 650 mg Q6H PRN [place] PAIN LEVEL 1-3 OR FEVER; Start 09/21/16 at 16:00 Acetaminophen/ Hydrocodone Bitart ([place] (5/325)) 1 tab Q6H PRN PO MODERATE PAIN LEVEL 4-6; Start 09/21/16 at 16:00 Morphine Sulfate (morphine) 2 mg Q4H PRN IV SEVERE PAIN LEVEL 7-10; Start 09/21 at 16:00 Docusate Sodium (Colace) 100 mg Q12H PRN PO CONSTIPATION; Start 09/21/16 at 16: 00 Bisacodyl (Dulcolax) 5 mg DAILY PRN PO CONSTIPATION; Start 09/21/16 at 16:00 Bisacodyl (Dulcolax Supp) 10 mg DAILY PRN [place] CONSTIPATION; Start 09/21/16 at 16 :00 Enoxaparin Sodium (Lovenox) 30 mg DAILY SC Last administered on 09/26/16 08:44 ; Admin Dose 30 MG; Start 09/22/16 at 09:00 Miscellaneous Information 1 ea NOTE XX ; Start 09/21/16 at 16:00 Glucose (Glutose) 15 gm Q15M PRN PO DECREASED GLUCOSE; Start 09/21/16 at 16:00 Glucose (Glutose) 22.5 gm Q15M PRN PO DECREASED GLUCOSE; Start 09/21/16 at 16: 00 Dextrose (D50w Syringe) 25 ml Q15M PRN IV DECREASED GLUCOSE Last administered on 09/22/16 05:26; Admin Dose 25 ML; Start 09/21/16 at 16:00 Dextrose (D50w Syringe) 50 ml Q15M PRN IV DECREASED GLUCOSE; Start 09/21/16 at 16:00 Glucagon (Glucagen) 1 mg Q15M PRN IM DECREASED GLUCOSE; Start 09/21/16 at 16:00 Glucose (Glutose) 15 gm Q15M PRN BUCCAL DECREASED GLUCOSE; Start 09/21/16 at 16 :00 Gabapentin (Neurontin) 100 mg BID PO Last administered on 09/26/16 08:40; Admin Dose 100 MG; Start 09/21/16 at 21:00 Metoprolol Succinate (Toprol Xl) 50 mg BID PO Last administered on 09/26/16 08 :39; Admin Dose 50 MG; Start 09/21/16 at 21:00 Solifenacin (Vesicare) 5 mg DAILY PO Last administered on 09/26/16 08:40; Admin Dose 5 MG; Start 09/22/16 at 09:00 Miscellaneous Information 2.5 ml DAILY XX ; Start 09/21/16 at 18:00; Status UNV Atorvastatin Calcium 80 mg 80 mg DAILY@21 PO Last administered on 09/25/16 21: 23; Admin Dose 80 MG; Start 09/21/16 at 21:00 Ceftriaxone Sodium (Rocephin) 50 ml @ 100 mls/hr Q24H IVPB Last administered on 09/26/16 08:40; Admin Dose 100 MLS/HR; Start 09/22/16 at 09:00 Miscellaneous Information (*Order Clarification Bulletin) MEDICATION REQUIRES CLARIFICATION: Q8H XX ; Start 09/21/16 at 18:30 Hydralazine HCl (Apresoline) 10 mg Q6H PRN IV ELEVATED BP SBP>160; Start at 12:30 Famotidine (Pepcid) 20 mg QHS PO Last administered on 09/25/16 21:25; Admin Dose 20 MG; Start 09/24/16 at 21:00 Diagnostic Test (Pha) (Accu-Chek) 1 XX ; Start 09/26/16 at 02:00 Insulin Glargine (Lantus) 61 unit DAILY SC Last administered on 09/26/16 08:45 ; Admin Dose 61 UNIT; Start 09/25/16 at 15:00 TODD DE LA CRUZ Sep 26, 2016 09:31
--- NOTE | 2016-09-26 11:16 | CONS ---
Date/Time of Note Date/Time of Note DATE: 09/26/16 TIME: 11:12 Assessment/Plan Assessment/Plan Additional Assessment/Plan 1. 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 2. Acute encephalopathy due to UTI 2. The patient's renal ultrasound has been consistent with a past medical history of possible chronic kidney disease secondary to diabetic nephropathy. 3. History of hypertension. 4. History of diabetes mellitus type 2. 5. History of dementia. 6. History of chronic back pain secondary to compression fracture. 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 PLAN: s/p IV fluids, BUN/Cr imrpoved to 1.28- no labs today to review yet,, pt had a Normal renal function on last admission, awaiting speech therapy evaluation AM labs ordered for tomorrow renal diet Renal US c/w medical renal disease will continue to follow up Consultation Date/Type/Reason Admit Date/Time Sep 21, 2016 at 14:27 Initial Consult Date September Type of Consultation: NEPHROLOGY Referring Provider: RAQUEL PROCTOR MD 24 HR Interval Summary Free Text/Dictation no acute events, BP stable, Cr improved to 1.29, no labs today to review yet Exam/Review of Systems Vital Signs Vitals Vital Signs Date Time Temp Pulse Resp B/P Pulse Ox O2 Delivery O2 Flow Rate FiO2 09/26/16 09:09 69 09/26/16 08:23 98.5 20 141/63 96 09/25/16 20:00 Nasal Cannula 2.0 Intake and Output 09/25/16 09/25/16 09/26/16 15:00 23:00 07:00 Intake Total 1190 ml Output Total 650 ml Balance 540 ml Exam GENERAL: Awake, alert, SOB improved HEENT: Normal, oropharynx clear. NECK: Supple, no JVD, no lymphadenopathy. LUNGS: Clear to auscultation. No crackles, no wheezes. HEART: S1, S2, with regular rhythm, no murmur. ABDOMEN: Soft, nontender, nondistended. Bowel sounds are present. EXTREMITIES: No clubbing, cyanosis, edema. Results Result Diagram: 09/25/16 0612 09/25/16 0612 Results 24 hrs Laboratory Tests Test 09/25/16 12:01 09/25/16 13:10 09/25/16 15:01 09/25/16 17:22 Bedside Glucose 372 H 383 H 264 H 145 Test 09/25/16 20:50 09/26/16 07:48 Bedside Glucose 174 243 H Medications Medications Current Medications Aspirin (Halfprin) 81 mg DAILY PO Last administered on 09/26/16 08:40; Admin Dose 81 MG; Start 09/22/16 at 09:00 Clopidogrel Bisulfate (plaVIX) 75 mg DAILY PO Last administered on 09/26/16 08 :38; Admin Dose 75 MG; Start 09/22/16 at 09:00 Cyclosporine (Restasis) 1 drop Q12 BOTH EYES Last administered on 09/26/16 08: 41; Admin Dose 1 DROP; Start 09/21/16 at 21:00 Ondansetron HCl (Zofran Inj) 4 mg Q6H PRN IV NAUSEA AND/OR VOMITING; Start at 16:00 Acetaminophen (Tylenol Tab) 650 mg Q6H PRN PO PAIN LEVEL 1-3 OR FEVER; Start at 16:00 Acetaminophen (Tylenol Supp) [address] PAIN LEVEL 1-3 OR FEVER; Start 09/21/16 at 16:00 Acetaminophen/ Hydrocodone Bitart ([place] (5/325)) 1 tab Q6H PRN PO MODERATE PAIN LEVEL 4-6; Start 09/21/16 at 16:00 Morphine Sulfate (morphine) 2 mg Q4H PRN IV SEVERE PAIN LEVEL 7-10; Start 09/21 at 16:00 Docusate Sodium (Colace) 100 mg Q12H PRN PO CONSTIPATION; Start 09/21/16 at 16: 00 Bisacodyl (Dulcolax) 5 mg DAILY PRN PO CONSTIPATION; Start 09/21/16 at 16:00 Bisacodyl (Dulcolax Supp) [address] CONSTIPATION; Start 09/21/16 at 16 :00 Enoxaparin Sodium (Lovenox) 30 mg DAILY SC Last administered on 09/26/16 08:44 ; Admin Dose 30 MG; Start 09/22/16 at 09:00 Miscellaneous Information 1 ea NOTE XX ; Start 09/21/16 at 16:00 Glucose (Glutose) 15 gm Q15M PRN PO DECREASED GLUCOSE; Start 09/21/16 at 16:00 Glucose (Glutose) 22.5 gm Q15M PRN PO DECREASED GLUCOSE; Start 09/21/16 at 16: 00 Dextrose (D50w Syringe) 25 ml Q15M PRN IV DECREASED GLUCOSE Last administered on 09/22/16 05:26; Admin Dose 25 ML; Start 09/21/16 at 16:00 Dextrose (D50w Syringe) 50 ml Q15M PRN IV DECREASED GLUCOSE; Start 09/21/16 at 16:00 Glucagon (Glucagen) 1 mg Q15M PRN IM DECREASED GLUCOSE; Start 09/21/16 at 16:00 Glucose (Glutose) 15 gm Q15M PRN BUCCAL DECREASED GLUCOSE; Start 09/21/16 at 16 :00 Gabapentin (Neurontin) 100 mg BID PO Last administered on 09/26/16 08:40; Admin Dose 100 MG; Start 09/21/16 at 21:00 Metoprolol Succinate (Toprol Xl) 50 mg BID PO Last administered on 09/26/16 08 :39; Admin Dose 50 MG; Start 09/21/16 at 21:00 Solifenacin (Vesicare) 5 mg DAILY PO Last administered on 09/26/16 08:40; Admin Dose 5 MG; Start 09/22/16 at 09:00 Miscellaneous Information 2.5 ml DAILY XX ; Start 09/21/16 at 18:00; Status UNV Atorvastatin Calcium 80 mg 80 mg DAILY@21 PO Last administered on 09/25/16 21: 23; Admin Dose 80 MG; Start 09/21/16 at 21:00 Ceftriaxone Sodium (Rocephin) 50 ml @ 100 mls/hr Q24H IVPB Last administered on 09/26/16 08:40; Admin Dose 100 MLS/HR; Start 09/22/16 at 09:00 Miscellaneous Information (*Order Clarification Bulletin) MEDICATION REQUIRES CLARIFICATION: Q8H XX ; Start 09/21/16 at 18:30 Hydralazine HCl (Apresoline) 10 mg Q6H PRN IV ELEVATED BP SBP>160; Start at 12:30 Famotidine (Pepcid) 20 mg QHS PO Last administered on 09/25/16 21:25; Admin Dose 20 MG; Start 09/24/16 at 21:00 Diagnostic Test (Pha) (Accu-Chek) 1 ea 02 XX ; Start 09/26/16 at 02:00 Insulin Glargine (Lantus) 61 unit DAILY SC Last administered on 09/26/16t 08:45 ; Admin Dose 61 UNIT; Start 09/25/16 at 15:00 HUMBERTO LING MD Sep 26, 2016 11:16
[2016-09-26] MEDS: FAMOTIDINE 20 MG TAB PO SCH (21:47)
[2016-09-26] MEDS: ATORVASTATIN 80 MG TAB PO SCH (21:47)
[2016-09-27] VITALS (12 sets, daily range): BP systolic 114–140; BP diastolic 57–92; PULSE 67–85; RESP 18–19
[2016-09-27] MEDS: ACCU-CHEK XX SCH (02:00)
[2016-09-27] MEDS: OLOPATADINE XX SCH ×3 (02:30→18:30)
[2016-09-27 06:23] LABS: ADD SCAN DIFF NO
[2016-09-27 06:25] LABS: BASOPHILS % 0.5 % (0.0-2.0); EOSINOPHILS # 0.3 10^3/ul (0.0-0.5); EOSINOPHILS % 3.4 % (0.0-7.0); HEMATOCRIT 37.8 % (37.0-47.0); HEMOGLOBIN 11.8 g/dl (12.0-16.0); LYMPHOCYTES # 2.5 10^3/ul (0.8-2.9); LYMPHOCYTES % 31.3 % (15.0-51.0); MEAN CORPUSCULAR HGB CONC 31.2 g/dl (32.0-37.0); MEAN CORPUSCULAR VOLUME 89.6 fl (82.0-101.0); MEAN PLATELET VOLUME 9.4 fl (7.4-10.4); MONOCYTE # 0.7 10^3/ul (0.3-0.9); MONOCYTES % 8.5 % (0.0-11.0); NEUTROPHIL # 4.5 10^3/ul (1.6-7.5); NEUTROPHILS % 55.8 % (39.0-77.0); PLATELET COUNT 290 10^3/UL (140-415); RED BLOOD COUNT 4.22 10^6/ul (4.20-5.40); RED CELL DISTRIBUTION WIDTH 13.4 % (11.5-14.5)
[2016-09-27 06:53] LABS: POTASSIUM 4.2 mmol/L (3.5-5.1)
[2016-09-27 06:56] LABS: CREATININE 1.2 mg/dl (0.44-1.00)
[2016-09-27 06:57] LABS: CALCIUM 9.7 mg/dl (8.4-10.2)
[2016-09-27] MEDS: INSULIN ASPART [NOVOLOG] 3 ML PEN SC SCH ×7 (07:53→21:00)
[2016-09-27] MEDS: CYCLOSPORINE 0.05% OPH DROPERETTE BOTH EYES SCH ×2 (09:44→21:47)
[2016-09-27] MEDS: CEFTRIAXONE 1 GM/NS 50 ML IVPB SCH (09:44)
[2016-09-27] MEDS: CLOPIDOGREL 75 MG TAB PO SCH (09:45)
[2016-09-27] MEDS: ASPIRIN (EC) 81 MG TAB PO SCH (09:45)
[2016-09-27] MEDS: GABAPENTIN 100 MG CAP PO SCH ×2 (09:45→21:20)
[2016-09-27] MEDS: SOLIFENACIN 5 MG TAB PO SCH (09:45)
[2016-09-27] MEDS: METOPROLOL (XL) 50 MG TAB PO SCH ×2 (09:46→21:28)
[2016-09-27] MEDS: INSULIN GLARGINE [LANtus] 3 ML PEN SC SCH (09:52)
[2016-09-27] MEDS: ENOXAPARIN 30 MG/0.3 ML SYG SC SCH (09:52)
--- NOTE | 2016-09-27 13:17 | PN ---
Date/Time of Note Date/Time of Note DATE: 09/27/16 TIME: 13:14 Assessment/Plan VTE Prophylaxis VTE Prophylaxis Intervention: LMWH Lines/Catheters [facility] Type (from [facility]): Peripheral IV Urinary Cath still in place: Yes Reason Cath still needed: urinary retention Assessment/Plan Problems: (1) Diabetes mellitus type 2 in obese Status: Chronic Comment: Adequately controlled on current medication regimen (2) Essential hypertension Status: Chronic Comment: Well-controlled (3) Acquired hypothyroidism Status: Chronic Comment: On replacement therapy (4) Altered mental status Status: Acute Comment: She is resolving nicely. At this time believe she could probably be returned to a rehabilitation center. Qualifiers: Altered mental status type: disorientation Qualified Code: R41.0 - Disorientation (5) Acute kidney injury (nontraumatic) Status: Acute Comment: Resolving Subjective 24 Hr Interval Summary Free Text/Dictation Charming pleasant woman sitting up in a chair. She reports she is doing well Constitutional: no complaints Respiratory: no complaints Cardiovascular: no complaints Gastrointestinal: no complaints Genitourinary: no complaints Exam/Review of Systems Vital Signs Vitals Vital Signs Date Time Temp Pulse Resp B/P Pulse Ox O2 Delivery O2 Flow Rate FiO2 09/27/16 12:10 68 09/27/16 11:18 98.1 19 131/62 95 09/26/16 20:00 Nasal Cannula 2.0 Intake and Output 09/26/16 09/26/16 09/27/16 15:00 23:00 07:00 Intake Total 240 ml Output Total 400 ml 350 ml Balance -400 ml -110 ml Exam Constitutional: alert Neck: non-tender, supple Respiratory: clear to auscultation, normal air movement Cardiovascular: nl pulses, regular rate and rhythm Gastrointestinal: nl liver, spleen, non-tender, soft Results Result Diagram: 09/27/16 0530 09/27/16 0530 Results 24 hrs Laboratory Tests Test 09/26/16 17:35 09/26/16 20:04 09/27/16 05:30 09/27/16 07:48 Bedside Glucose 76 115 181 White Blood Count 8.0 Red Blood Count . Hemoglobin 11.8 L Hematocrit 37.8 Mean Corpuscular Volume 89.6 Mean Corpuscular Hemoglobin 28.0 L Mean Corpuscular Hemoglobin Concent 31.2 L Red Cell Distribution Width 13.4 Platelet Count 290 Mean Platelet Volume 9.4 Neutrophils % 55.8 Lymphocytes % 31.3 Monocytes % 8.5 Eosinophils % 3.4 Basophils % 0.5 Nucleated Red Blood Cells % 0.0 Neutrophils # 4.5 Lymphocytes # 2.5 Monocytes # 0.7 Eosinophils # 0.3 Basophils # 0.0 Nucleated Red Blood Cells # 0.0 Sodium Level 143 Potassium Level 4.2 Chloride Level 108 Carbon Dioxide Level 23 Anion Gap 16 Blood Urea Nitrogen 33 H Creatinine 1.20 H Glucose Level 169 # Calcium Level 9.7 Test 09/27/16 09:49 09/27/16 10:49 Bedside Glucose 267 H 298 H Medications Medications Current Medications Aspirin (Halfprin) 81 mg DAILY PO Last administered on 09/27/16 09:45; Admin Dose 81 MG; Start 09/22/16 at 09:00 Clopidogrel Bisulfate (plaVIX) 75 mg DAILY PO Last administered on 09/27/16 09 :45; Admin Dose 75 MG; Start 09/22/16 at 09:00 Cyclosporine (Restasis) 1 drop Q12 BOTH EYES Last administered on 09/27/16 09: 44; Admin Dose 1 DROP; Start 09/21/16 at 21:00 Ondansetron HCl (Zofran Inj) 4 mg Q6H PRN IV NAUSEA AND/OR VOMITING; Start at 16:00 Acetaminophen (Tylenol Tab) 650 mg Q6H PRN PO PAIN LEVEL 1-3 OR FEVER; Start at 16:00 Acetaminophen (Tylenol Supp) 650 mg Q6H PRN [place] PAIN LEVEL 1-3 OR FEVER; Start 09/21/16 at 16:00 Acetaminophen/ Hydrocodone Bitart ([place] (5/325)) 1 tab Q6H PRN PO MODERATE PAIN LEVEL 4-6; Start 09/21/16 at 16:00 Morphine Sulfate (morphine) 2 mg Q4H PRN IV SEVERE PAIN LEVEL 7-10; Start 09/21 at 16:00 Docusate Sodium (Colace) 100 mg Q12H PRN PO CONSTIPATION; Start 09/21/16 at 16: 00 Bisacodyl (Dulcolax) 5 mg DAILY PRN PO CONSTIPATION; Start 09/21/16 at 16:00 Bisacodyl (Dulcolax Supp) 10 mg DAILY PRN [place] CONSTIPATION; Start 09/21/16 at 16 :00 Enoxaparin Sodium (Lovenox) 30 mg DAILY SC Last administered on 09/27/16 09:52 ; Admin Dose 30 MG; Start 09/22/16 at 09:00 Miscellaneous Information 1 ea NOTE XX ; Start 09/21/16 at 16:00 Glucose (Glutose) 15 gm Q15M PRN PO DECREASED GLUCOSE; Start 09/21/16 at 16:00 Glucose (Glutose) 22.5 gm Q15M PRN PO DECREASED GLUCOSE; Start 09/21/16 at 16: 00 Dextrose (D50w Syringe) 25 ml Q15M PRN IV DECREASED GLUCOSE Last administered on 09/22/16 05:26; Admin Dose 25 ML; Start 09/21/16 at 16:00 Dextrose (D50w Syringe) 50 ml Q15M PRN IV DECREASED GLUCOSE; Start 09/21/16 at 16:00 Glucagon (Glucagen) 1 mg Q15M PRN IM DECREASED GLUCOSE; Start 09/21/16 at 16:00 Glucose (Glutose) 15 gm Q15M PRN BUCCAL DECREASED GLUCOSE; Start 09/21/16 at 16 :00 Gabapentin (Neurontin) 100 mg BID PO Last administered on 09/27/16 09:45; Admin Dose 100 MG; Start 09/21/16 at 21:00 Metoprolol Succinate (Toprol Xl) 50 mg BID PO Last administered on 09/27/16 09 :46; Admin Dose 50 MG; Start 09/21/16 at 21:00 Solifenacin (Vesicare) 5 mg DAILY PO Last administered on 09/27/16 09:45; Admin Dose 5 MG; Start 09/22/16 at 09:00 Miscellaneous Information 2.5 ml DAILY XX ; Start 09/21/16 at 18:00; Status UNV Atorvastatin Calcium 80 mg 80 mg DAILY@21 PO Last administered on 09/26/16 21: 47; Admin Dose 80 MG; Start 09/21/16 at 21:00 Ceftriaxone Sodium (Rocephin) 50 ml @ 100 mls/hr Q24H IVPB Last administered on 09/27/16 09:44; Admin Dose 100 MLS/HR; Start 09/22/16 at 09:00 Miscellaneous Information (*Order Clarification Bulletin) MEDICATION REQUIRES CLARIFICATION: Q8H XX ; Start 09/21/16 at 18:30 Hydralazine HCl (Apresoline) 10 mg Q6H PRN IV ELEVATED BP SBP>160; Start at 12:30 Famotidine (Pepcid) 20 mg QHS PO Last administered on 09/26/16 21:47; Admin Dose 20 MG; Start 09/24/16 at 21:00 Diagnostic Test (Pha) (Accu-Chek) 1 XX ; Start 09/26/16 at 02:00 Insulin Glargine (Lantus) 61 unit DAILY SC Last administered on 09/27/16 09:52 ; Admin Dose 61 UNIT; Start 09/25/16 at 15:00 RIKA POWERS MD Sep 27, 2016 13:16
--- NOTE | 2016-09-27 16:53 | CONS ---
Date/Time of Note Date/Time of Note DATE: 09/27/16 TIME: 16:49 Consult Date/Type/Reason Admit Date/Time Sep 21, 2016 at 14:27 Initial Consult Date Type of Consultation: NEPHROLOGY Ordering Provider: RAQUEL PROCTOR MD Subjective no acute events, BP stable, Cr improved to 1.20. dw staff Objective Vital Signs Date Time Temp Pulse Resp B/P Pulse Ox O2 Delivery O2 Flow Rate FiO2 09/27/16 16:10 78 09/27/16 15:36 98.1 19 114/57 97 09/27/16 07:40 Nasal Cannula 2.0 Intake and Output 09/26/16 09/26/16 09/27/16 15:00 23:00 07:00 Intake Total 240 ml Output Total 400 ml 350 ml Balance -400 ml -110 ml Exam GENERAL: Awake, alert, SOB improved HEENT: Normal, oropharynx clear. NECK: Supple, no JVD, no lymphadenopathy. LUNGS: Clear to auscultation. No crackles, no wheezes. HEART: S1, S2, with regular rhythm, no murmur. ABDOMEN: Soft, nontender, nondistended. Bowel sounds are present. EXTREMITIES: No clubbing, cyanosis, edema. Results/Medications Result Diagram: 09/27/16 0530 09/27/16 0530 Results 24 hrs Laboratory Tests Test 09/26/16 17:35 09/26/16 20:04 09/27/16 05:30 09/27/16 07:48 Bedside Glucose 76 115 181 White Blood Count 8.0 Red Blood Count .22 Hemoglobin 11.8 L Hematocrit 37.8 Mean Corpuscular Volume 89.6 Mean Corpuscular Hemoglobin 28.0 L Mean Corpuscular Hemoglobin Concent 31.2 L Red Cell Distribution Width 13.4 Platelet Count 290 Mean Platelet Volume 9.4 Neutrophils % 55.8 Lymphocytes % 31.3 Monocytes % 8.5 Eosinophils % 3.4 Basophils % 0.5 Nucleated Red Blood Cells % 0.0 Neutrophils # 4.5 Lymphocytes # 2.5 Monocytes # 0.7 Eosinophils # 0.3 Basophils # 0.0 Nucleated Red Blood Cells # 0.0 Sodium Level 143 Potassium Level 4.2 Chloride Level 108 Carbon Dioxide Level 23 Anion Gap 16 Blood Urea Nitrogen 33 H Creatinine 1.20 H Glucose Level 169 # Calcium Level 9.7 Test 09/27/16 09:49 09/27/16 10:49 Bedside Glucose 267 H 298 H Medications Current Medications Aspirin (Halfprin) 81 mg DAILY PO Last administered on 09/27/16 09:45; Admin Dose 81 MG; Start 09/22/16 at 09:00 Clopidogrel Bisulfate (plaVIX) 75 mg DAILY PO Last administered on 09/27/16 09 :45; Admin Dose 75 MG; Start 09/22/16 at 09:00 Cyclosporine (Restasis) 1 drop Q12 BOTH EYES Last administered on 09/27/16 09: 44; Admin Dose 1 DROP; Start 09/21/16 at 21:00 Ondansetron HCl (Zofran Inj) 4 mg Q6H PRN IV NAUSEA AND/OR VOMITING; Start at 16:00 Acetaminophen (Tylenol Tab) 650 mg Q6H PRN PO PAIN LEVEL 1-3 OR FEVER; Start at 16:00 Acetaminophen (Tylenol Supp) 650 mg Q6H PRN [place] PAIN LEVEL 1-3 OR FEVER; Start 09/21/16 at 16:00 Acetaminophen/ Hydrocodone Bitart ([place] (5/325)) 1 tab Q6H PRN PO MODERATE PAIN LEVEL 4-6; Start 09/21/16 at 16:00 Morphine Sulfate (morphine) 2 mg Q4H PRN IV SEVERE PAIN LEVEL 7-10; Start 09/21 at 16:00 Docusate Sodium (Colace) 100 mg Q12H PRN PO CONSTIPATION; Start 09/21/16 at 16: 00 Bisacodyl (Dulcolax) 5 mg DAILY PRN PO CONSTIPATION; Start 09/21/16 at 16:00 Bisacodyl (Dulcolax Supp) 10 mg DAILY PRN [place] CONSTIPATION; Start 09/21/16 at 16 :00 Enoxaparin Sodium (Lovenox) 30 mg DAILY SC Last administered on 09/27/16 09:52 ; Admin Dose 30 MG; Start 09/22/16 at 09:00 Miscellaneous Information 1 ea NOTE XX ; Start 09/21/16 at 16:00 Glucose (Glutose) 15 gm Q15M PRN PO DECREASED GLUCOSE; Start 09/21/16 at 16:00 Glucose (Glutose) 22.5 gm Q15M PRN PO DECREASED GLUCOSE; Start 09/21/16 at 16: 00 Dextrose (D50w Syringe) 25 ml Q15M PRN IV DECREASED GLUCOSE Last administered on 09/22/16 05:26; Admin Dose 25 ML; Start 09/21/16 at 16:00 Dextrose (D50w Syringe) 50 ml Q15M PRN IV DECREASED GLUCOSE; Start 09/21/16 at 16:00 Glucagon (Glucagen) 1 mg Q15M PRN IM DECREASED GLUCOSE; Start 09/21/16 at 16:00 Glucose (Glutose) 15 gm Q15M PRN BUCCAL DECREASED GLUCOSE; Start 09/21/16 at 16 :00 Gabapentin (Neurontin) 100 mg BID PO Last administered on 09/27/16 09:45; Admin Dose 100 MG; Start 09/21/16 at 21:00 Metoprolol Succinate (Toprol Xl) 50 mg BID PO Last administered on 09/27/16 09 :46; Admin Dose 50 MG; Start 09/21/16 at 21:00 Solifenacin (Vesicare) 5 mg DAILY PO Last administered on 09/27/16 09:45; Admin Dose 5 MG; Start 09/22/16 at 09:00 Miscellaneous Information 2.5 ml DAILY XX ; Start 09/21/16 at 18:00; Status UNV Atorvastatin Calcium 80 mg 80 mg DAILY@21 PO Last administered on 09/26/16 21: 47; Admin Dose 80 MG; Start 09/21/16 at 21:00 Ceftriaxone Sodium (Rocephin) 50 ml @ 100 mls/hr Q24H IVPB Last administered on 09/27/16 09:44; Admin Dose 100 MLS/HR; Start 09/22/16 at 09:00; Stop at 08:59 Miscellaneous Information (*Order Clarification Bulletin) MEDICATION REQUIRES CLARIFICATION: Q8H XX ; Start 09/21/16 at 18:30 Hydralazine HCl (Apresoline) 10 mg Q6H PRN IV ELEVATED BP SBP>160; Start at 12:30 Famotidine (Pepcid) 20 mg QHS PO Last administered on 09/26/16 21:47; Admin Dose 20 MG; Start 09/24/16 at 21:00 Diagnostic Test (Pha) (Accu-Chek) 1 ea 02 XX ; Start 09/26/16 at 02:00 Insulin Glargine (Lantus) 61 unit DAILY SC Last administered on 09/27/16t 09:52 ; Admin Dose 61 UNIT; Start 09/25/16 at 15:00 Assessment/Plan Additional Assessment/Plan 1. 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 2. Acute encephalopathy due to UTI 2. The patient's renal ultrasound has been consistent with a past medical history of possible chronic kidney disease secondary to diabetic nephropathy. 3. History of hypertension. 4. History of diabetes mellitus type 2. 5. History of dementia. 6. History of chronic back pain secondary to compression fracture. 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 PLAN: s/p IV fluids, BUN/Cr imrpoved to 1.20, pt had a Normal renal function on last admission, awaiting speech therapy evaluation AM labs ordered for tomorrow renal diet Renal US c/w medical renal disease will continue to follow up ROSY Perdomo Dr Sep 27, 2016 16:52
[2016-09-27] MEDS: ATORVASTATIN 80 MG TAB PO SCH (21:20)
[2016-09-27] MEDS: FAMOTIDINE 20 MG TAB PO SCH (21:20)
[2016-09-28] VITALS (11 sets, daily range): BP systolic 117–134; BP diastolic 56–79; PULSE 72–80; RESP 16–19
[2016-09-28] MEDS: ACCU-CHEK XX SCH (00:48)
[2016-09-28] MEDS: OLOPATADINE XX SCH ×3 (02:27→17:33)
[2016-09-28 06:37] LABS: ADD SCAN DIFF NO; BASOPHIL # 0.1 10^3/ul (0.0-0.1); BASOPHILS % 0.5 % (0.0-2.0); EOSINOPHILS # 0.4 10^3/ul (0.0-0.5); EOSINOPHILS % 4.1 % (0.0-7.0); HEMATOCRIT 39.1 % (37.0-47.0); HEMOGLOBIN 12.2 g/dl (12.0-16.0); LYMPHOCYTES # 2.6 10^3/ul (0.8-2.9); LYMPHOCYTES % 28.4 % (15.0-51.0); MEAN CORPUSCULAR HGB CONC 31.2 g/dl (32.0-37.0); MEAN CORPUSCULAR VOLUME 89.7 fl (82.0-101.0); MEAN PLATELET VOLUME 9.2 fl (7.4-10.4); MONOCYTE # 0.7 10^3/ul (0.3-0.9); MONOCYTES % 7.9 % (0.0-11.0); NEUTROPHIL # 5.4 10^3/ul (1.6-7.5); NEUTROPHILS % 58.7 % (39.0-77.0); PLATELET COUNT 274 10^3/UL (140-415); RED BLOOD COUNT 4.36 10^6/ul (4.20-5.40); RED CELL DISTRIBUTION WIDTH 13.4 % (11.5-14.5); WHITE BLOOD COUNT 9.3 10^3/ul (4.8-10.8)
[2016-09-28 07:01] LABS: CALCIUM 9.7 mg/dl (8.4-10.2); CREATININE 1.01 mg/dl (0.44-1.00); POTASSIUM 4.3 mmol/L (3.5-5.1)
[2016-09-28] MEDS: INSULIN ASPART [NOVOLOG] 3 ML PEN SC SCH ×7 (07:55→21:37)
[2016-09-28] MEDS: INSULIN GLARGINE [LANtus] 3 ML PEN SC SCH (08:02)
[2016-09-28] MEDS: CLOPIDOGREL 75 MG TAB PO SCH (08:39)
[2016-09-28] MEDS: ASPIRIN (EC) 81 MG TAB PO SCH (08:39)
[2016-09-28] MEDS: SOLIFENACIN 5 MG TAB PO SCH (08:39)
[2016-09-28] MEDS: GABAPENTIN 100 MG CAP PO SCH ×2 (08:39→21:23)
[2016-09-28] MEDS: METOPROLOL (XL) 50 MG TAB PO SCH ×2 (08:40→21:26)
[2016-09-28] MEDS: CEFTRIAXONE 1 GM/NS 50 ML IVPB SCH (08:40)
[2016-09-28] MEDS: CYCLOSPORINE 0.05% OPH DROPERETTE BOTH EYES SCH ×2 (08:40→21:23)
[2016-09-28] MEDS: ENOXAPARIN 30 MG/0.3 ML SYG SC SCH (08:43)
--- NOTE | 2016-09-28 12:37 | PN ---
Date/Time of Note Date/Time of Note DATE: 09/28/16 TIME: 12:35 Assessment/Plan VTE Prophylaxis VTE Prophylaxis Intervention: LMWH Lines/Catheters IV Catheter Type (from Nrsg): Peripheral IV Urinary Cath still in place: Yes Reason Cath still needed: urinary retention Assessment/Plan Problems: (1) Chest pain Status: Acute Comment: We will check EKG chest x-ray and troponins. This is extremely atypical and not consistent with cardiac pain but will workup to be on the safe side Qualifiers: Chest pain type: unspecified Qualified Code: R07.9 - Chest pain, unspecified type (2) Essential hypertension Status: Chronic Comment: Well-controlled (3) Acquired hypothyroidism Status: Chronic Comment: On replacement therapy (4) Diabetes mellitus type 2 in obese Status: Chronic Comment: Well-controlled (5) Acute kidney injury (nontraumatic) Status: Resolved Comment: Fully resolved Subjective 24 Hr Interval Summary Free Text/Dictation Charming French speaking woman in no emi distress however the family reports that she complains of right pectoral chest pain since 24 hours also some dyspnea Exam/Review of Systems Vital Signs Vitals Vital Signs Date Time Temp Pulse Resp B/P Pulse Ox O2 Delivery O2 Flow Rate FiO2 09/28/16 12:11 79 09/28/16 11:18 98.2 19 125/79 97 09/27/16 21:00 Nasal Cannula 2.0 Intake and Output 09/27/16 09/27/16 09/28/16 15:00 23:00 07:00 Intake Total 500 ml 750 ml Output Total 600 ml 650 ml Balance -100 ml 100 ml Exam Constitutional: alert, oriented Neck: non-tender, supple Respiratory: clear to auscultation, normal air movement Cardiovascular: nl pulses, regular rate and rhythm Results Result Diagram: 09/28/16 0540 09/28/16 0540 Results 24 hrs Laboratory Tests Test 09/27/16 17:53 09/27/16 21:16 09/28/16 05:40 09/28/16 07:43 Bedside Glucose 167 70 109 White Blood Count 9.3 Red Blood Count 4.36 Hemoglobin 12.2 Hematocrit 39.1 Mean Corpuscular Volume 89.7 Mean Corpuscular Hemoglobin 28.0 L Mean Corpuscular Hemoglobin Concent 31.2 L Red Cell Distribution Width 13.4 Platelet Count 274 Mean Platelet Volume 9.2 Neutrophils % 58.7 Lymphocytes % 28.4 Monocytes % 7.9 Eosinophils % 4.1 Basophils % 0.5 Nucleated Red Blood Cells % 0.0 Neutrophils # 5.4 Lymphocytes # 2.6 Monocytes # 0.7 Eosinophils # 0.4 Basophils # 0.1 Nucleated Red Blood Cells # 0.0 Sodium Level 140 Potassium Level 4.3 Chloride Level 110 Carbon Dioxide Level 22 Anion Gap 12 Blood Urea Nitrogen 26 H Creatinine 1.01 H Glucose Level 94 # Calcium Level 9.7 Test 09/28/16 11:55 Bedside Glucose 80 Medications Medications Current Medications Aspirin (Halfprin) 81 mg DAILY PO Last administered on 09/28/16 08:39; Admin Dose 81 MG; Start 09/22/16 at 09:00 Clopidogrel Bisulfate (plaVIX) 75 mg DAILY PO Last administered on 09/28/16 08 :39; Admin Dose 75 MG; Start 09/22/16 at 09:00 Cyclosporine (Restasis) 1 drop Q12 BOTH EYES Last administered on 09/28/16 08: 40; Admin Dose 1 DROP; Start 09/21/16 at 21:00 Ondansetron HCl (Zofran Inj) 4 mg Q6H PRN IV NAUSEA AND/OR VOMITING; Start at 16:00 Acetaminophen (Tylenol Tab) 650 mg Q6H PRN PO PAIN LEVEL 1-3 OR FEVER; Start at 16:00 Acetaminophen (Tylenol Supp) 650 mg Q6H PRN [place] PAIN LEVEL 1-3 OR FEVER; Start 09/21/16 at 16:00 Acetaminophen/ Hydrocodone Bitart ([place] (5/325)) 1 tab Q6H PRN PO MODERATE PAIN LEVEL 4-6; Start 09/21/16 at 16:00 Morphine Sulfate (morphine) 2 mg Q4H PRN IV SEVERE PAIN LEVEL 7-10; Start 09/21 at 16:00 Docusate Sodium (Colace) 100 mg Q12H PRN PO CONSTIPATION; Start 09/21/16 at 16: 00 Bisacodyl (Dulcolax) 5 mg DAILY PRN PO CONSTIPATION; Start 09/21/16 at 16:00 Bisacodyl (Dulcolax Supp) 10 mg DAILY PRN [place] CONSTIPATION; Start 09/21/16 at 16 :00 Enoxaparin Sodium (Lovenox) 30 mg DAILY SC Last administered on 09/28/16 08:43 ; Admin Dose 30 MG; Start 09/22/16 at 09:00 Miscellaneous Information 1 ea NOTE XX ; Start 09/21/16 at 16:00 Glucose (Glutose) 15 gm Q15M PRN PO DECREASED GLUCOSE; Start 09/21/16 at 16:00 Glucose (Glutose) 22.5 gm Q15M PRN PO DECREASED GLUCOSE; Start 09/21/16 at 16: 00 Dextrose (D50w Syringe) 25 ml Q15M PRN IV DECREASED GLUCOSE Last administered on 09/22/16 05:26; Admin Dose 25 ML; Start 09/21/16 at 16:00 Dextrose (D50w Syringe) 50 ml Q15M PRN IV DECREASED GLUCOSE; Start 09/21/16 at 16:00 Glucagon (Glucagen) 1 mg Q15M PRN IM DECREASED GLUCOSE; Start 09/21/16 at 16:00 Glucose (Glutose) 15 gm Q15M PRN BUCCAL DECREASED GLUCOSE; Start 09/21/16 at 16 :00 Gabapentin (Neurontin) 100 mg BID PO Last administered on 09/28/16 08:39; Admin Dose 100 MG; Start 09/21/16 at 21:00 Metoprolol Succinate (Toprol Xl) 50 mg BID PO Last administered on 09/28/16 08 :40; Admin Dose 50 MG; Start 09/21/16 at 21:00 Solifenacin (Vesicare) 5 mg DAILY PO Last administered on 09/28/16 08:39; Admin Dose 5 MG; Start 09/22/16 at 09:00 Miscellaneous Information 2.5 ml DAILY XX ; Start 09/21/16 at 18:00; Status UNV Atorvastatin Calcium 80 mg 80 mg DAILY@21 PO Last administered on 09/27/16 21: 20; Admin Dose 80 MG; Start 09/21/16 at 21:00 Ceftriaxone Sodium (Rocephin) 50 ml @ 100 mls/hr Q24H IVPB Last administered on 09/28/16 08:40; Admin Dose 100 MLS/HR; Start 09/22/16 at 09:00; Stop at 08:59 Miscellaneous Information (*Order Clarification Bulletin) MEDICATION REQUIRES CLARIFICATION: Q8H XX ; Start 09/21/16 at 18:30 Hydralazine HCl (Apresoline) 10 mg Q6H PRN IV ELEVATED BP SBP>160; Start at 12:30 Famotidine (Pepcid) 20 mg QHS PO Last administered on 09/27/16 21:20; Admin Dose 20 MG; Start 09/24/16 at 21:00 Diagnostic Test (Pha) (Accu-Chek) 1 XX ; Start 09/26/16 at 02:00 Insulin Glargine (Lantus) 61 unit DAILY SC Last administered on 09/28/16 08:02 ; Admin Dose 61 UNIT; Start 09/25/16 at 15:00 RIKA POWERS MD Sep 28, 2016 12:37
--- NOTE | 2016-09-28 14:09 | RADRPT ---
Vent Rate: 83 bpm RR Interval: 0 msec ID Interval: 148 msec QRS Duration: 88 msec QT Interval: 380 msec QTC Interval: 446 msec P-R-T [place]: -11 - -15 - 130 degrees Normal sinus rhythm LVH Poor R Wave progression Possible Anterolateral infarct , age undetermined Abnormal ECG No previous tracing available for comparison Electronically Signed By: Eran Morales [id number]
--- NOTE | 2016-09-28 14:59 | RADRPT ---
PROCEDURE: XR Chest. CLINICAL INDICATION: Dyspnea. TECHNIQUE: PA and Lateral views of the chest were obtained. COMPARISON: Chest x-ray 09/05/2016. FINDINGS: The soft tissues are normal. There are osteophytes in the thoracic spine. There is a suboptimal in spiration. The heart is upper limits of normal. The cardiomediastinal silhouette and hilar structu res are normal. The pulmonary vasculature is normal. There are atherosclerotic calcifications ectasi a of the left-sided thoracic aorta. The lungs are clear. The costophrenic angles are normal. IMPRESSION: 1. Spondylosis of the thoracic spine. 2. Atherosclerosis of the aortic arch. 3. No evidence of active cardiopulmonary disease. RPTAT:AAJJ Physician David Date Time Electronically viewed and signed by Physician David on 09/28/2016 14:59 /
--- NOTE | 2016-09-28 16:21 | CONS ---
Date/Time of Note Date/Time of Note DATE: 09/28/16 TIME: 16:20 Consult Date/Type/Reason Admit Date/Time Sep 21, 2016 at 14:27 Type of Consultation: NEPHROLOGY Ordering Provider: RAQUEL PROCTOR MD Subjective No acute distress noted. Patient is resting in the bed alert and awake. Daughter at the bedside all questions answered. Discussed with the nurse no acute issues reported. Objective Vital Signs Date Time Temp Pulse Resp B/P Pulse Ox O2 Delivery O2 Flow Rate FiO2 09/28/16 16:18 77 09/28/16 15:19 97.9 117/56 98 09/28/16 11:18 19 09/27/16 21:00 Nasal Cannula 2.0 Intake and Output 09/27/16 09/27/16 09/28/16 15:00 23:00 07:00 Intake Total 500 ml 750 ml Output Total 600 ml 650 ml Balance -100 ml 100 ml Results/Medications Result Diagram: 09/28/16 0540 09/28/16 0540 Results 24 hrs Laboratory Tests Test 09/27/16 17:53 09/27/16 21:16 09/28/16 05:40 09/28/16 07:43 Bedside Glucose 167 70 109 White Blood Count 9.3 Red Blood Count 4.36 Hemoglobin 12.2 Hematocrit 39.1 Mean Corpuscular Volume 89.7 Mean Corpuscular Hemoglobin 28.0 L Mean Corpuscular Hemoglobin Concent 31.2 L Red Cell Distribution Width 13.4 Platelet Count 274 Mean Platelet Volume 9.2 Neutrophils % 58.7 Lymphocytes % 28.4 Monocytes % 7.9 Eosinophils % 4.1 Basophils % 0.5 Nucleated Red Blood Cells % 0.0 Neutrophils # 5.4 Lymphocytes # 2.6 Monocytes # 0.7 Eosinophils # 0.4 Basophils # 0.1 Nucleated Red Blood Cells # 0.0 Sodium Level 140 Potassium Level 4.3 Chloride Level 110 Carbon Dioxide Level 22 Anion Gap 12 Blood Urea Nitrogen 26 H Creatinine 1.01 H Glucose Level 94 # Calcium Level 9.7 Test 09/28/16 11:55 09/28/16 14:05 Bedside Glucose 80 Troponin I < 0.012 Medications Current Medications Aspirin (Halfprin) 81 mg DAILY PO Last administered on 09/28/16t 08:39; Admin Dose 81 MG; Start 09/22/16 at 09:00 Clopidogrel Bisulfate (plaVIX) 75 mg DAILY PO Last administered on 09/28/16 08 :39; Admin Dose 75 MG; Start 09/22/16 at 09:00 Cyclosporine (Restasis) 1 drop Q12 BOTH EYES Last administered on 09/28/16 08: 40; Admin Dose 1 DROP; Start 09/21/16 at 21:00 Ondansetron HCl (Zofran Inj) 4 mg Q6H PRN IV NAUSEA AND/OR VOMITING; Start at 16:00 Acetaminophen (Tylenol Tab) 650 mg Q6H PRN PO PAIN LEVEL 1-3 OR FEVER; Start at 16:00 Acetaminophen (Tylenol Supp) 650 mg Q6H PRN [place] PAIN LEVEL 1-3 OR FEVER; Start 09/21/16 at 16:00 Acetaminophen/ Hydrocodone Bitart ([place] (5/325)) 1 tab Q6H PRN PO MODERATE PAIN LEVEL 4-6; Start 09/21/16 at 16:00 Morphine Sulfate (morphine) 2 mg Q4H PRN IV SEVERE PAIN LEVEL 7-10; Start 09/21 at 16:00 Docusate Sodium (Colace) 100 mg Q12H PRN PO CONSTIPATION; Start 09/21/16 at 16: 00 Bisacodyl (Dulcolax) 5 mg DAILY PRN PO CONSTIPATION; Start 09/21/16 at 16:00 Bisacodyl (Dulcolax Supp) 10 mg DAILY PRN [place] CONSTIPATION; Start 09/21/16 at 16 :00 Enoxaparin Sodium (Lovenox) 30 mg DAILY SC Last administered on 09/28/16 08:43 ; Admin Dose 30 MG; Start 09/22/16 at 09:00 Miscellaneous Information 1 ea NOTE XX ; Start 09/21/16 at 16:00 Glucose (Glutose) 15 gm Q15M PRN PO DECREASED GLUCOSE; Start 09/21/16 at 16:00 Glucose (Glutose) 22.5 gm Q15M PRN PO DECREASED GLUCOSE; Start 09/21/16 at 16: 00 Dextrose (D50w Syringe) 25 ml Q15M PRN IV DECREASED GLUCOSE Last administered on 09/22/16 05:26; Admin Dose 25 ML; Start 09/21/16 at 16:00 Dextrose (D50w Syringe) 50 ml Q15M PRN IV DECREASED GLUCOSE; Start 09/21/16 at 16:00 Glucagon (Glucagen) 1 mg Q15M PRN IM DECREASED GLUCOSE; Start 09/21/16 at 16:00 Glucose (Glutose) 15 gm Q15M PRN BUCCAL DECREASED GLUCOSE; Start 09/21/16 at 16 :00 Gabapentin (Neurontin) 100 mg BID PO Last administered on 09/28/16 08:39; Admin Dose 100 MG; Start 09/21/16 at 21:00 Metoprolol Succinate (Toprol Xl) 50 mg BID PO Last administered on 09/28/16 08 :40; Admin Dose 50 MG; Start 09/21/16 at 21:00 Solifenacin (Vesicare) 5 mg DAILY PO Last administered on 09/28/16 08:39; Admin Dose 5 MG; Start 09/22/16 at 09:00 Miscellaneous Information 2.5 ml DAILY XX ; Start 09/21/16 at 18:00; Status UNV Atorvastatin Calcium 80 mg 80 mg DAILY@21 PO Last administered on 09/27/16 21: 20; Admin Dose 80 MG; Start 09/21/16 at 21:00 Ceftriaxone Sodium (Rocephin) 50 ml @ 100 mls/hr Q24H IVPB Last administered on 09/28/16 08:40; Admin Dose 100 MLS/HR; Start 09/22/16 at 09:00; Stop at 08:59 Miscellaneous Information (*Order Clarification Bulletin) MEDICATION REQUIRES CLARIFICATION: Q8H XX ; Start 09/21/16 at 18:30 Hydralazine HCl (Apresoline) 10 mg Q6H PRN IV ELEVATED BP SBP>160; Start at 12:30 Famotidine (Pepcid) 20 mg QHS PO Last administered on 09/27/16 21:20; Admin Dose 20 MG; Start 09/24/16 at 21:00 Diagnostic Test (Pha) (Accu-Chek) 1 ea 02 XX ; Start 09/26/16 at 02:00 Insulin Glargine (Lantus) 61 unit DAILY SC Last administered on 09/28/16 08:02 ; Admin Dose 61 UNIT; Start 09/25/16 at 15:00 Assessment/Plan Additional Assessment/Plan itional Assessment/Plan 1. 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 2. Acute encephalopathy due to UTI 2. The patient's renal ultrasound has been consistent with a past medical history of possible chronic kidney disease secondary to diabetic nephropathy. 3. History of hypertension. 4. History of diabetes mellitus type 2. 5. History of dementia. 6. History of chronic back pain secondary to compression fracture. 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 PLAN: s/p IV fluids, BUN/Cr imrpoved to 1.01, pt had a Normal renal function on last admission, awaiting speech therapy evaluation AM labs ordered for tomorrow renal diet Renal US c/w medical renal disease will continue to follow up dw ROSY Villanueva Sep 28, 2016 16:21
[2016-09-28] MEDS: ATORVASTATIN 80 MG TAB PO SCH (21:23)
[2016-09-28] MEDS: FAMOTIDINE 20 MG TAB PO SCH (21:23)
[2016-09-29] VITALS (12 sets, daily range): BP systolic 109–132; BP diastolic 56–62; PULSE 64–80; RESP 16–20
[2016-09-29] MEDS: ACCU-CHEK XX SCH (01:06)
[2016-09-29] MEDS: OLOPATADINE XX SCH ×3 (02:30→18:30)
[2016-09-29 06:50] LABS: ADD SCAN DIFF NO
[2016-09-29 07:09] LABS: BASOPHILS % 0.5 % (0.0-2.0); EOSINOPHILS # 0.4 10^3/ul (0.0-0.5); EOSINOPHILS % 4.2 % (0.0-7.0); HEMATOCRIT 34.7 % (37.0-47.0); HEMOGLOBIN 11.3 g/dl (12.0-16.0); LYMPHOCYTES # 2.6 10^3/ul (0.8-2.9); LYMPHOCYTES % 30.5 % (15.0-51.0); MEAN CORPUSCULAR HEMOGLOBIN 28.9 pg (29.0-33.0); MEAN CORPUSCULAR HGB CONC 32.6 g/dl (32.0-37.0); MEAN CORPUSCULAR VOLUME 88.7 fl (82.0-101.0); MEAN PLATELET VOLUME 9.5 fl (7.4-10.4); MONOCYTE # 0.8 10^3/ul (0.3-0.9); MONOCYTES % 9.2 % (0.0-11.0); NEUTROPHIL # 4.8 10^3/ul (1.6-7.5); NEUTROPHILS % 55.1 % (39.0-77.0); PLATELET COUNT 260 10^3/UL (140-415); RED BLOOD COUNT 3.91 10^6/ul (4.20-5.40); RED CELL DISTRIBUTION WIDTH 13.3 % (11.5-14.5); WHITE BLOOD COUNT 8.6 10^3/ul (4.8-10.8)
[2016-09-29 07:12] LABS: CALCIUM 9.5 mg/dl (8.4-10.2); CREATININE 1.37 mg/dl (0.44-1.00); POTASSIUM 4.4 mmol/L (3.5-5.1)
[2016-09-29] MEDS: CLOPIDOGREL 75 MG TAB PO SCH (08:45)
[2016-09-29] MEDS: GABAPENTIN 100 MG CAP PO SCH ×2 (08:45→20:33)
[2016-09-29] MEDS: ASPIRIN (EC) 81 MG TAB PO SCH (08:46)
[2016-09-29] MEDS: SOLIFENACIN 5 MG TAB PO SCH (08:46)
[2016-09-29] MEDS: METOPROLOL (XL) 50 MG TAB PO SCH ×2 (08:46→20:34)
[2016-09-29] MEDS: CEFTRIAXONE 1 GM/NS 50 ML IVPB SCH (08:47)
[2016-09-29] MEDS: CYCLOSPORINE 0.05% OPH DROPERETTE BOTH EYES SCH ×2 (09:00→20:37)
[2016-09-29] MEDS: INSULIN ASPART [NOVOLOG] 3 ML PEN SC SCH ×7 (09:04→20:34)
[2016-09-29] MEDS: ENOXAPARIN 30 MG/0.3 ML SYG SC SCH (09:20)
[2016-09-29] MEDS: INSULIN GLARGINE [LANtus] 3 ML PEN SC SCH (09:22)
--- NOTE | 2016-09-29 11:13 | PN ---
Date/Time of Note Date/Time of Note DATE: 09/29/16 TIME: 11:05 Assessment/Plan VTE Prophylaxis VTE Prophylaxis Intervention: LMWH Lines/Catheters IV Catheter Type (from [facility]): Peripheral IV Urinary Cath still in place: Yes Reason Cath still needed: urinary retention Assessment/Plan Chief Complaint/Hosp Course Assessment/Plan: 1. Acute encephalopathy, most probably secondary to underlying uremia from worsening renal function along with a combination of possible underlying urinary tract infection. Improved now. Brain CT scan negative for any acute findings. However, brain CT showed small scattered foci of subacute white matter infarcts. - Continue diet, PT, f/u speech therapy evaluation rec's 2. Acute kidney injury - slowly improving. 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 This could be most probably secondary to nephrotoxicity from NSAIDs and NEGIN inhibitors. These have been put on hold. Nephrology following the patient. - We will avoid any nephrotoxic medications, monitor, f/u renal rec's 3. Essential hypertension. Continue antihypertensives. 4. Diabetes mellitus, most probably type 2 - FS improved - Continue sliding scale insulin,home aspart and lantus. Hemoglobin A1c 8.5. 5. Positive urinalysis, urine leukocyte esterase 2+, urine microscopic WBC greater than 200. However, the patient's urine culture has been negative so far. Continue antibiotics for urinary tract infection. 6. Hypothyroidism. Continue Synthroid. 7. Recent history of shingles. Currently stable. 8. Fluid, electrolytes and nutrition - continue soft diet. 9. Deep venous thrombosis prophylaxis. Subcutaneous Lovenox (renal dose). 10. Gastrointestinal prophylaxis. Histamine-2 receptor blockers. Problems: Subjective 24 Hr Interval Summary Free Text/Dictation Pt had no acute events overnight. Exam/Review of Systems Vital Signs Vitals Vital Signs Date Time Temp Pulse Resp B/P Pulse Ox O2 Delivery O2 Flow Rate FiO2 09/29/16 08:00 64 09/29/16 07:45 98.2 20 132/62 98 09/28/16 21:00 Nasal Cannula 2.0 Intake and Output 09/28/16 09/28/16 09/29/16 15:00 23:00 07:00 Intake Total 800 ml 800 ml Output Total 500 ml 850 ml Balance 300 ml -50 ml Exam Constitutional: alert, oriented Neck: non-tender, supple Respiratory: clear to auscultation, normal air movement Cardiovascular: nl pulses, regular rate and rhythm Results Result Diagram: 09/29/16 0606 09/29/16 0606 Results 24 hrs Laboratory Tests Test 09/28/16 11:55 09/28/16 14:05 09/28/16 17:27 09/28/16 20:35 Bedside Glucose 80 140 Troponin I < 0.012 < 0.012 Test 09/28/16 21:22 09/29/16 01:12 09/29/16 06:06 Bedside Glucose 184 241 H White Blood Count 8.6 Red Blood Count 3.91 L Hemoglobin 11.3 L Hematocrit 34.7 L Mean Corpuscular Volume 88.7 Mean Corpuscular Hemoglobin 28.9 L Mean Corpuscular Hemoglobin Concent 32.6 Red Cell Distribution Width 13.3 Platelet Count 260 Mean Platelet Volume 9.5 Neutrophils % 55.1 Lymphocytes % 30.5 Monocytes % 9.2 Eosinophils % 4.2 Basophils % 0.5 Nucleated Red Blood Cells % 0.0 Neutrophils # 4.8 Lymphocytes # 2.6 Monocytes # 0.8 Eosinophils # 0.4 Basophils # 0.0 Nucleated Red Blood Cells # 0.0 Sodium Level 136 Potassium Level 4.4 Chloride Level 106 Carbon Dioxide Level 24 Anion Gap 10 Blood Urea Nitrogen 34 H Creatinine 1.37 H Glucose Level 245 #H Calcium Level 9.5 Troponin I < 0.012 Medications Medications Current Medications Aspirin (Halfprin) 81 mg DAILY PO Last administered on 09/29/16 08:46; Admin Dose 81 MG; Start 09/22/16 at 09:00 Clopidogrel Bisulfate (plaVIX) 75 mg DAILY PO Last administered on 09/29/16 08 :45; Admin Dose 75 MG; Start 09/22/16 at 09:00 Cyclosporine (Restasis) 1 drop Q12 BOTH EYES Last administered on 09/28/16 21: 23; Admin Dose 1 DROP; Start 09/21/16 at 21:00 Ondansetron HCl (Zofran Inj) 4 mg Q6H PRN IV NAUSEA AND/OR VOMITING; Start at 16:00 Acetaminophen (Tylenol Tab) 650 mg Q6H PRN PO PAIN LEVEL 1-3 OR FEVER Last administered on 09/28/16 21:24; Admin Dose 650 MG; Start 09/21/16 at 16:00 Acetaminophen (Tylenol Supp) 650 mg Q6H PRN [place] PAIN LEVEL 1-3 OR FEVER; Start 09/21/16 at 16:00 Acetaminophen/ Hydrocodone Bitart ([place] (5/325)) 1 tab Q6H PRN PO MODERATE PAIN LEVEL 4-6; Start 09/21/16 at 16:00 Morphine Sulfate (morphine) 2 mg Q4H PRN IV SEVERE PAIN LEVEL 7-10; Start 09/21 at 16:00 Docusate Sodium (Colace) 100 mg Q12H PRN PO CONSTIPATION; Start 09/21/16 at 16: 00 Bisacodyl (Dulcolax) 5 mg DAILY PRN PO CONSTIPATION; Start 09/21/16 at 16:00 Bisacodyl (Dulcolax Supp) 10 mg DAILY PRN [place] CONSTIPATION; Start 09/21/16 at 16 :00 Enoxaparin Sodium (Lovenox) 30 mg DAILY SC Last administered on 09/29/16 09:20 ; Admin Dose 30 MG; Start 09/22/16 at 09:00 Miscellaneous Information 1 ea NOTE XX ; Start 09/21/16 at 16:00 Glucose (Glutose) 15 gm Q15M PRN PO DECREASED GLUCOSE; Start 09/21/16 at 16:00 Glucose (Glutose) 22.5 gm Q15M PRN PO DECREASED GLUCOSE; Start 09/21/16 at 16: 00 Dextrose (D50w Syringe) 25 ml Q15M PRN IV DECREASED GLUCOSE Last administered on 09/22/16 05:26; Admin Dose 25 ML; Start 09/21/16 at 16:00 Dextrose (D50w Syringe) 50 ml Q15M PRN IV DECREASED GLUCOSE; Start 09/21/16 at 16:00 Glucagon (Glucagen) 1 mg Q15M PRN IM DECREASED GLUCOSE; Start 09/21/16 at 16:00 Glucose (Glutose) 15 gm Q15M PRN BUCCAL DECREASED GLUCOSE; Start 09/21/16 at 16 :00 Gabapentin (Neurontin) 100 mg BID PO Last administered on 09/29/16 08:45; Admin Dose 100 MG; Start 09/21/16 at 21:00 Metoprolol Succinate (Toprol Xl) 50 mg BID PO Last administered on 09/29/16 08 :46; Admin Dose 50 MG; Start 09/21/16 at 21:00 Solifenacin (Vesicare) 5 mg DAILY PO Last administered on 09/29/16 08:46; Admin Dose 5 MG; Start 09/22/16 at 09:00 Miscellaneous Information 2.5 ml DAILY XX ; Start 09/21/16 at 18:00; Status UNV Atorvastatin Calcium 80 mg 80 mg DAILY@21 PO Last administered on 09/28/16 21: 23; Admin Dose 80 MG; Start 09/21/16 at 21:00 Ceftriaxone Sodium (Rocephin) 50 ml @ 100 mls/hr Q24H IVPB Last administered on 09/29/16 08:47; Admin Dose 100 MLS/HR; Start 09/22/16 at 09:00; Stop at 08:59 Miscellaneous Information (*Order Clarification Bulletin) MEDICATION REQUIRES CLARIFICATION: Q8H XX ; Start 09/21/16 at 18:30 Hydralazine HCl (Apresoline) 10 mg Q6H PRN IV ELEVATED BP SBP>160; Start at 12:30 Famotidine (Pepcid) 20 mg QHS PO Last administered on 09/28/16 21:23; Admin Dose 20 MG; Start 09/24/16 at 21:00 Diagnostic Test (Pha) (Accu-Chek) 1 ea 02 XX Last administered on 09/29/16 01: 06; Admin Dose 1 EA; Start 09/26/16 at 02:00 Insulin Glargine (Lantus) 61 unit DAILY SC Last administered on 09/29/16 09:22 ; Admin Dose 61 UNIT; Start 09/25/16 at 15:00 TODD DE LA CRUZ Sep 29, 2016 11:13
--- NOTE | 2016-09-29 11:40 | CONS ---
Date/Time of Note Date/Time of Note DATE: 09/29/16 TIME: 11:38 Assessment/Plan Assessment/Plan Additional Assessment/Plan 1. 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 2. The patient's renal ultrasound has been consistent with a past medical history of possible chronic kidney disease secondary to diabetic nephropathy. 3. History of hypertension. 4. History of diabetes mellitus type 2. 5. History of dementia. 6. History of chronic back pain secondary to compression fracture. 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 PLAN: s/p IV fluids, Cr bumped to 1.37 today- advised to increase PO hydration pt had a Normal renal function on last admission, renal diet Renal US c/w medical renal disease will continue to follow up Consultation Date/Type/Reason Admit Date/Time Sep 21, 2016 at 14:27 Initial Consult Date September Type of Consultation: NEPHROLOGY Referring Provider: RAQUEL PROCTOR MD 24 HR Interval Summary Free Text/Dictation cr bumped to 1.37, Participated in PT, BP stable Exam/Review of Systems Vital Signs Vitals Vital Signs Date Time Temp Pulse Resp B/P Pulse Ox O2 Delivery O2 Flow Rate FiO2 09/29/16 08:00 64 09/29/16 07:45 98.2 20 132/62 98 09/28/16 21:00 Nasal Cannula 2.0 Intake and Output 09/28/16 09/28/16 09/29/16 15:00 23:00 07:00 Intake Total 800 ml 800 ml Output Total 500 ml 850 ml Balance 300 ml -50 ml Exam GENERAL: Awake, alert, in moderate distress due to hypoxia. HEENT: Normal, oropharynx clear. NECK: Supple, no JVD, no lymphadenopathy. LUNGS: Clear to auscultation. No crackles, no wheezes. HEART: S1, S2, with regular rhythm, no murmur. ABDOMEN: Soft, nontender, nondistended. Bowel sounds are present. EXTREMITIES: No clubbing, cyanosis, edema. Results Result Diagram: 09/29/16 0606 09/29/16 0606 Results 24 hrs Laboratory Tests Test 09/28/16 11:55 09/28/16 14:05 09/28/16 17:27 09/28/16 20:35 Bedside Glucose 80 140 Troponin I < 0.012 < 0.012 Test 09/28/16 21:22 09/29/16 01:12 09/29/16 06:06 09/29/16 08:08 Bedside Glucose 184 241 H 227 H White Blood Count 8.6 Red Blood Count 3.91 L Hemoglobin 11.3 L Hematocrit 34.7 L Mean Corpuscular Volume 88.7 Mean Corpuscular Hemoglobin 28.9 L Mean Corpuscular Hemoglobin Concent 32.6 Red Cell Distribution Width 13.3 Platelet Count 260 Mean Platelet Volume 9.5 Neutrophils % 55.1 Lymphocytes % 30.5 Monocytes % 9.2 Eosinophils % 4.2 Basophils % 0.5 Nucleated Red Blood Cells % 0.0 Neutrophils # 4.8 Lymphocytes # 2.6 Monocytes # 0.8 Eosinophils # 0.4 Basophils # 0.0 Nucleated Red Blood Cells # 0.0 Sodium Level 136 Potassium Level 4.4 Chloride Level 106 Carbon Dioxide Level 24 Anion Gap 10 Blood Urea Nitrogen 34 H Creatinine 1.37 H Glucose Level 245 #H Calcium Level 9.5 Troponin I < 0.012 Medications Medications Current Medications Aspirin (Halfprin) 81 mg DAILY PO Last administered on 09/29/16 08:46; Admin Dose 81 MG; Start 09/22/16 at 09:00 Clopidogrel Bisulfate (plaVIX) 75 mg DAILY PO Last administered on 09/29/16 08 :45; Admin Dose 75 MG; Start 09/22/16 at 09:00 Cyclosporine (Restasis) 1 drop Q12 BOTH EYES Last administered on 09/28/16 21: 23; Admin Dose 1 DROP; Start 09/21/16 at 21:00 Ondansetron HCl (Zofran Inj) 4 mg Q6H PRN IV NAUSEA AND/OR VOMITING; Start at 16:00 Acetaminophen (Tylenol Tab) 650 mg Q6H PRN PO PAIN LEVEL 1-3 OR FEVER Last administered on 09/28/16 21:24; Admin Dose 650 MG; Start 09/21/16 at 16:00 Acetaminophen (Tylenol Supp) 650 mg Q6H PRN [place] PAIN LEVEL 1-3 OR FEVER; Start 09/21/16 at 16:00 Acetaminophen/ Hydrocodone Bitart ([place] (5/325)) 1 tab Q6H PRN PO MODERATE PAIN LEVEL 4-6; Start 09/21/16 at 16:00 Morphine Sulfate (morphine) 2 mg Q4H PRN IV SEVERE PAIN LEVEL 7-10; Start 09/21 at 16:00 Docusate Sodium (Colace) 100 mg Q12H PRN PO CONSTIPATION; Start 09/21/16 at 16: 00 Bisacodyl (Dulcolax) 5 mg DAILY PRN PO CONSTIPATION; Start 09/21/16 at 16:00 Bisacodyl (Dulcolax Supp) 10 mg DAILY PRN [place] CONSTIPATION; Start 09/21/16 at 16 :00 Enoxaparin Sodium (Lovenox) 30 mg DAILY SC Last administered on 09/29/16 09:20 ; Admin Dose 30 MG; Start 09/22/16 at 09:00 Miscellaneous Information 1 ea NOTE XX ; Start 09/21/16 at 16:00 Glucose (Glutose) 15 gm Q15M PRN PO DECREASED GLUCOSE; Start 09/21/16 at 16:00 Glucose (Glutose) 22.5 gm Q15M PRN PO DECREASED GLUCOSE; Start 09/21/16 at 16: 00 Dextrose (D50w Syringe) 25 ml Q15M PRN IV DECREASED GLUCOSE Last administered on 09/22/16 05:26; Admin Dose 25 ML; Start 09/21/16 at 16:00 Dextrose (D50w Syringe) 50 ml Q15M PRN IV DECREASED GLUCOSE; Start 09/21/16 at 16:00 Glucagon (Glucagen) 1 mg Q15M PRN IM DECREASED GLUCOSE; Start 09/21/16 at 16:00 Glucose (Glutose) 15 gm Q15M PRN BUCCAL DECREASED GLUCOSE; Start 09/21/16 at 16 :00 Gabapentin (Neurontin) 100 mg BID PO Last administered on 09/29/16 08:45; Admin Dose 100 MG; Start 09/21/16 at 21:00 Metoprolol Succinate (Toprol Xl) 50 mg BID PO Last administered on 09/29/16 08 :46; Admin Dose 50 MG; Start 09/21/16 at 21:00 Solifenacin (Vesicare) 5 mg DAILY PO Last administered on 09/29/16 08:46; Admin Dose 5 MG; Start 09/22/16 at 09:00 Miscellaneous Information 2.5 ml DAILY XX ; Start 09/21/16 at 18:00; Status UNV Atorvastatin Calcium 80 mg 80 mg DAILY@21 PO Last administered on 09/28/16 21: 23; Admin Dose 80 MG; Start 09/21/16 at 21:00 Ceftriaxone Sodium (Rocephin) 50 ml @ 100 mls/hr Q24H IVPB Last administered on 09/29/16 08:47; Admin Dose 100 MLS/HR; Start 09/22/16 at 09:00; Stop at 08:59 Miscellaneous Information (*Order Clarification Bulletin) MEDICATION REQUIRES CLARIFICATION: Q8H XX ; Start 09/21/16 at 18:30 Hydralazine HCl (Apresoline) 10 mg Q6H PRN IV ELEVATED BP SBP>160; Start at 12:30 Famotidine (Pepcid) 20 mg QHS PO Last administered on 09/28/16 21:23; Admin Dose 20 MG; Start 09/24/16 at 21:00 Diagnostic Test (Pha) (Accu-Chek) 1 ea 02 XX Last administered on 09/29/16 01: 06; Admin Dose 1 EA; Start 09/26/16 at 02:00 Insulin Glargine (Lantus) 61 unit DAILY SC Last administered on 09/29/16 09:22 ; Admin Dose 61 UNIT; Start 09/25/16 at 15:00 HUMBERTO LING MD Sep 29, 2016 11:40
[2016-09-29] MEDS: FAMOTIDINE 20 MG TAB PO SCH (20:33)
[2016-09-29] MEDS: ATORVASTATIN 80 MG TAB PO SCH (20:33)
[2016-09-30] VITALS (10 sets, daily range): BP systolic 108–137; BP diastolic 57–76; PULSE 71–80; RESP 18–20
[2016-09-30] MEDS: ACCU-CHEK XX SCH (02:00)
[2016-09-30] MEDS: OLOPATADINE XX SCH ×2 (02:30→10:11)
[2016-09-30 07:27] LABS: ADD SCAN DIFF NO
[2016-09-30 07:40] LABS: BASOPHIL # 0.1 10^3/ul (0.0-0.1); BASOPHILS % 0.6 % (0.0-2.0); EOSINOPHILS # 0.4 10^3/ul (0.0-0.5); EOSINOPHILS % 4.6 % (0.0-7.0); HEMATOCRIT 35.5 % (37.0-47.0); HEMOGLOBIN 11.4 g/dl (12.0-16.0); LYMPHOCYTES # 2.2 10^3/ul (0.8-2.9); LYMPHOCYTES % 26.2 % (15.0-51.0); MEAN CORPUSCULAR HEMOGLOBIN 28.5 pg (29.0-33.0); MEAN CORPUSCULAR HGB CONC 32.1 g/dl (32.0-37.0); MEAN CORPUSCULAR VOLUME 88.8 fl (82.0-101.0); MEAN PLATELET VOLUME 9.3 fl (7.4-10.4); MONOCYTE # 0.6 10^3/ul (0.3-0.9); MONOCYTES % 7.4 % (0.0-11.0); NEUTROPHIL # 5.2 10^3/ul (1.6-7.5); NEUTROPHILS % 60.6 % (39.0-77.0); PLATELET COUNT 265 10^3/UL (140-415); RED CELL DISTRIBUTION WIDTH 13.2 % (11.5-14.5); WHITE BLOOD COUNT 8.5 10^3/ul (4.8-10.8)
[2016-09-30 07:55] LABS: CALCIUM 9.7 mg/dl (8.4-10.2); CREATININE 1.25 mg/dl (0.44-1.00)
[2016-09-30] MEDS: INSULIN ASPART [NOVOLOG] 3 ML PEN SC SCH ×4 (07:55→12:34)
[2016-09-30] MEDS: INSULIN GLARGINE [LANtus] 3 ML PEN SC SCH (09:54)
[2016-09-30] MEDS: GABAPENTIN 100 MG CAP PO SCH (09:56)
[2016-09-30] MEDS: SOLIFENACIN 5 MG TAB PO SCH (09:56)
[2016-09-30] MEDS: ASPIRIN (EC) 81 MG TAB PO SCH (09:56)
[2016-09-30] MEDS: CLOPIDOGREL 75 MG TAB PO SCH (09:56)
[2016-09-30] MEDS: METOPROLOL (XL) 50 MG TAB PO SCH (09:57)
[2016-09-30] MEDS: CYCLOSPORINE 0.05% OPH DROPERETTE BOTH EYES SCH (09:57)
[2016-09-30] MEDS: ENOXAPARIN 30 MG/0.3 ML SYG SC SCH (10:09)
--- NOTE | 2016-09-30 10:34 | PDOCDIS ---
Discharge Instructions CONDITION Patient Condition: Stable HOME CARE INSTRUCTIONS: Special Diet: Mechanical soft TODD DE LA CRUZ Sep 30, 2016 10:34
--- NOTE | 2016-09-30 11:08 | DS ---
DATE OF ADMISSION: 09/21/2016 DATE OF DISCHARGE: 09/30/2016 HOSPITAL COURSE: This is a 76-year-old female originally admitted on 09/21/2016 being discharged to acute rehab facility on 09/30/2016. The patient initially came in with altered mental status and p alvaro was found with acute encephalopathy. The patient was admitted and seen by renal team during this hospital stay. The acute encephalopathy was thought to be secondary to underlying uremia from worsening renal function along with a combination of possible underlying UTI. There was a head CT p erformed that showed small scattered foci of subacute white matter infarcts, but no acute findings. The patient was admitted, the patient's renal insufficiency was treated. The patient also worked in physical therapy. The patient was found with a hemoglobin A1c of 8.5, had a history of type 2 diab etes and they were put on insulin sliding scale and aspart and Lantus insulin. They were treated fo r the UTI as well, although her urine culture was negative for growth. Over the course of her hospi castillo stay, the patient's renal function improved. The patient's encephalopathy improved as well. Th e patient was able to ambulate and work with physical therapy who recommended acute rehab evaluation which was performed. The patient has been accepted to acute rehabilitation. The patient will be d ischarged there today in improved condition. DISCHARGE MEDICATIONS: She will be sent with: 1. Tylenol 650 q.6h. p.r.n. 2. Aspirin 81 mg daily. 3. Lipitor 80 mg daily. 4. Dulcolax 5 mg daily as needed. 5. Plavix 75 mg daily. 6. Cyclosporine 0.05% ophthalmic drops q.12 h. hours. 7. Colace 100 mg q.12 p.r.n. 8. Lovenox 30 mg subQ daily. 9. Pepcid 20 mg at bedtime. 10. Gabapentin 100 mg b.i.d. 11. Hydralazine 10 mg IV q.6h. p.r.n. 12. [place] 5/325 q.6h. p.r.n. 13. Moderate insulin sliding scale aspart 18 units of aspart with meals. 14. Lantus 61 units daily. 15. Metoprolol 50 mg b.i.d. 16. [place] q.8 h. 17. Morphine 2 mg IV q.2h. p.r.n. 17. Zofran 4 mg IV q.6h. p.r.n. 18. VESIcare 5 mg daily. FOLLOWUP: She needs follow up with primary care doctor as an outpatient in next 1 to 2 weeks. FINAL DIAGNOSES: 1. Acute encephalopathy secondary to combination of subacute white matter infarcts, underlying urem ia worsening renal function, and UTI now improved. 2. Acute kidney injury, improving with underlying chronic kidney disease stage I to stage II. 3. Essential hypertension. 4. Type 2 diabetes with A1c of 8.5. 5. Positive urinary tract infection, status post treatment with antibiotics. 6. Hypothyroidism. 7. Recent history of shingles. 8. History of stroke in August with aphasia and gait dysfunction on aspirin and Plavix. 9. Dementia with delirium. 10. Lumbar 1 compression fracture status 11. Degenerative joint disease. 12. Glaucoma. Time spent discharging patient 45 minutes. Dictated By: TODD SIMMONS Conf#: [id number] DID#: [id number]
--- NOTE | 2016-09-30 11:22 | CONS ---
Date/Time of Note Date/Time of Note DATE: 09/30/16 TIME: 11:19 Assessment/Plan Assessment/Plan Additional Assessment/Plan 1. 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 2. The patient's renal ultrasound has been consistent with a past medical history of possible chronic kidney disease secondary to diabetic nephropathy. 3. History of hypertension. 4. History of diabetes mellitus type 2. 5. History of dementia. 6. History of chronic back pain secondary to compression fracture. 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: s/p IV fluids, Cr slightly improved 1.25 today- advised to increase PO hydration pt had a Normal renal function on last admission, renal diet Renal US c/w medical renal disease will continue to follow up Consultation Date/Type/Reason Admit Date/Time Sep 21, 2016 at 14:27 Initial Consult Date September Type of Consultation: NEPHROLOGY Referring Provider: RAQUEL PROCTOR MD 24 HR Interval Summary Free Text/Dictation no acute events, awaiting decision for Acute rehab, cr improved to 1.25 Exam/Review of Systems Vital Signs Vitals Vital Signs Date Time Temp Pulse Resp B/P Pulse Ox O2 Delivery O2 Flow Rate FiO2 09/30/16 08:25 71 09/30/16 08:00 Nasal Cannula 2.0 09/30/16 07:29 97.6 20 118/59 96 Intake and Output 09/29/16 09/29/16 09/30/16 15:00 23:00 07:00 Intake Total 520 ml 60 ml Output Total 350 ml 500 ml Balance 170 ml -440 ml Exam GENERAL: Awake, alert, in moderate distress due to hypoxia. HEENT: Normal, oropharynx clear. NECK: Supple, no JVD, no lymphadenopathy. LUNGS: Clear to auscultation. No crackles, no wheezes. HEART: S1, S2, with regular rhythm, no murmur. ABDOMEN: Soft, nontender, nondistended. Bowel sounds are present. EXTREMITIES: No clubbing, cyanosis, edema. Results Result Diagram: 09/30/16 0650 09/30/16 0650 Results 24 hrs Laboratory Tests Test 09/29/16 11:46 09/29/16 17:01 09/29/16 18:38 09/29/16 19:47 Bedside Glucose 189 107 168 176 Test 09/30/16 06:50 09/30/16 07:57 09/30/16 09:47 White Blood Count 8.5 Red Blood Count 4.00 L Hemoglobin 11.4 L Hematocrit 35.5 L Mean Corpuscular Volume 88.8 Mean Corpuscular Hemoglobin 28.5 L Mean Corpuscular Hemoglobin Concent 32.1 Red Cell Distribution Width 13.2 Platelet Count 265 Mean Platelet Volume 9.3 Neutrophils % 60.6 Lymphocytes % 26.2 Monocytes % 7.4 Eosinophils % 4.6 Basophils % 0.6 Nucleated Red Blood Cells % 0.0 Neutrophils # 5.2 Lymphocytes # 2.2 Monocytes # 0.6 Eosinophils # 0.4 Basophils # 0.1 Nucleated Red Blood Cells # 0.0 Sodium Level 142 Potassium Level 4.0 Chloride Level 106 Carbon Dioxide Level 24 Anion Gap 16 Blood Urea Nitrogen 34 H Creatinine 1.25 H Glucose Level 140 # Calcium Level 9.7 Bedside Glucose 140 194 Medications Medications Current Medications Aspirin (Halfprin) 81 mg DAILY PO Last administered on 09/30/16 09:56; Admin Dose 81 MG; Start 09/22/16 at 09:00 Clopidogrel Bisulfate (plaVIX) 75 mg DAILY PO Last administered on 09/30/16 09 :56; Admin Dose 75 MG; Start 09/22/16 at 09:00 Cyclosporine (Restasis) 1 drop Q12 BOTH EYES Last administered on 09/30/16 09: 57; Admin Dose 1 DROP; Start 09/21/16 at 21:00 Ondansetron HCl (Zofran Inj) 4 mg Q6H PRN IV NAUSEA AND/OR VOMITING; Start at 16:00 Acetaminophen (Tylenol Tab) 650 mg Q6H PRN PO PAIN LEVEL 1-3 OR FEVER Last administered on 09/28/16 21:24; Admin Dose 650 MG; Start 09/21/16 at 16:00 Acetaminophen (Tylenol Supp) 650 mg Q6H PRN [place] PAIN LEVEL 1-3 OR FEVER; Start 09/21/16 at 16:00 Acetaminophen/ Hydrocodone Bitart ([place] (5/325)) 1 tab Q6H PRN PO MODERATE PAIN LEVEL 4-6; Start 09/21/16 at 16:00 Morphine Sulfate (morphine) 2 mg Q4H PRN IV SEVERE PAIN LEVEL 7-10; Start 09/21 at 16:00 Docusate Sodium (Colace) 100 mg Q12H PRN PO CONSTIPATION; Start 09/21/16 at 16: 00 Bisacodyl (Dulcolax) 5 mg DAILY PRN PO CONSTIPATION; Start 09/21/16 at 16:00 Bisacodyl (Dulcolax Supp) 10 mg DAILY PRN [place] CONSTIPATION; Start 09/21/16 at 16 :00 Enoxaparin Sodium (Lovenox) 30 mg DAILY SC Last administered on 09/30/16 10:09 ; Admin Dose 30 MG; Start 09/22/16 at 09:00 Miscellaneous Information 1 ea NOTE XX ; Start 09/21/16 at 16:00 Glucose (Glutose) 15 gm Q15M PRN PO DECREASED GLUCOSE; Start 09/21/16 at 16:00 Glucose (Glutose) 22.5 gm Q15M PRN PO DECREASED GLUCOSE; Start 09/21/16 at 16: 00 Dextrose (D50w Syringe) 25 ml Q15M PRN IV DECREASED GLUCOSE Last administered on 09/22/16 05:26; Admin Dose 25 ML; Start 09/21/16 at 16:00 Dextrose (D50w Syringe) 50 ml Q15M PRN IV DECREASED GLUCOSE; Start 09/21/16 at 16:00 Glucagon (Glucagen) 1 mg Q15M PRN IM DECREASED GLUCOSE; Start 09/21/16 at 16:00 Glucose (Glutose) 15 gm Q15M PRN BUCCAL DECREASED GLUCOSE; Start 09/21/16 at 16 :00 Gabapentin (Neurontin) 100 mg BID PO Last administered on 09/30/16 09:56; Admin Dose 100 MG; Start 09/21/16 at 21:00 Metoprolol Succinate (Toprol Xl) 50 mg BID PO Last administered on 09/30/16 09 :57; Admin Dose 50 MG; Start 09/21/16 at 21:00 Solifenacin (Vesicare) 5 mg DAILY PO Last administered on 09/30/16 09:56; Admin Dose 5 MG; Start 09/22/16 at 09:00 Miscellaneous Information 2.5 ml DAILY XX ; Start 09/21/16 at 18:00; Status UNV Atorvastatin Calcium (Lipitor) 80 mg DAILY@21 PO Last administered on 20:33; Admin Dose 80 MG; Start 09/21/16 at 21:00 Miscellaneous Information (*Order Clarification Bulletin) MEDICATION REQUIRES CLARIFICATION: Q8H XX ; Start 09/21/16 at 18:30 Hydralazine HCl (Apresoline) 10 mg Q6H PRN IV ELEVATED BP SBP>160; Start at 12:30 Famotidine (Pepcid) 20 mg QHS PO Last administered on 09/29/16 20:33; Admin Dose 20 MG; Start 09/24/16 at 21:00 Diagnostic Test (Pha) (Accu-Chek) 1 ea 02 XX Last administered on 09/29/16 01: 06; Admin Dose 1 EA; Start 09/26/16 at 02:00 Insulin Glargine (Lantus) 61 unit DAILY SC Last administered on 09/30/16 09:54 ; Admin Dose 61 UNIT; Start 09/25/16 at 15:00 HUMBERTO LING MD Sep 30, 2016 11:22
== END 2016-09-30 17:23 | DRG 682 ==
LOC: E/R 12:36 → TEL 14:27 → E/R 17:26 → TEL 18:59
PROVIDERS: ADMIT Hospitalist; ATTEND Hospitalist
DX: N17.9 Acute kidney failure, unspecified (principal); I63.9 Cerebral infarction, unspecified; G93.41 Metabolic encephalopathy; N39.0 Urinary tract infection, site not specified; M48.56XA Collapsed vertebra, not elsewhere classified, lumbar region, initial encounter for fracture; F03.90 Unspecified dementia, unspecified severity, without behavioral disturbance, psychotic disturbance, mood disturbance, and anxiety; E87.5 Hyperkalemia; E86.0 Dehydration; E66.9 Obesity, unspecified; Z68.35 Body mass index [BMI] 35.0-35.9, adult; I69.320 Aphasia following cerebral infarction; E03.9 Hypothyroidism, unspecified; K59.00 Constipation, unspecified; E11.22 Type 2 diabetes mellitus with diabetic chronic kidney disease; E11.65 Type 2 diabetes mellitus with hyperglycemia; I12.9 Hypertensive chronic kidney disease with stage 1 through stage 4 chronic kidney disease, or unspecified chronic kidney disease; N18.2 Chronic kidney disease, stage 2 (mild); H40.9 Unspecified glaucoma
CPT/HCPCS: 36415; 70450; 71010; 76775; 80048; 80053; 80307; 81001; 81003; 82962; 83036; 83735; 84100; 84155; 84300; 84484; 85025; 85610; 85730; 87081; 87086; 89190; 92526; 92610; 93005; 96365; 96375; 97110; 97162; 97530; J0696; J1650; J1815; J7030; J7042

== ENCOUNTER 2016-09-30 16:41 | Inpatient (IN) | payer MEDICARE, OTHER ==
[~2016-09-30] VITALS: Ht 157.5 cm; Wt 86.0 kg
[~2016-09-30 16:41] MED LIST changes: -CIPR500T4 PO
[2016-09-30] MEDS ORDERED: morphine 2 MG INJ IV PRN (19:00)
[2016-09-30] MEDS ORDERED: ACETAMINOPHEN 650 MG SUPP PR PRN (19:00)
[2016-09-30] MEDS: OLOPATADINE XX SCH (19:00)
[2016-09-30] MEDS ORDERED: hydrALAzine 20 MG INJ IV PRN (19:00)
[2016-09-30] MEDS ORDERED: DOCUSATE SODIUM 100 MG CAP PO PRN (19:00)
[2016-09-30] MEDS ORDERED: BISACODYL 10 MG SUPP PR PRN ×2 (19:00→19:30)
[2016-09-30] MEDS ORDERED: ONDANSETRON 4 MG INJ IV PRN (19:00)
[2016-09-30] MEDS ORDERED: ACETAMINOPHEN 325 MG TAB PO PRN ×2 (19:00→19:30)
[2016-09-30 19:30] VITALS: Ht 157.5 cm; Wt 86.0 kg
[2016-09-30] MEDS ORDERED: MAGNESIUM HYDROXIDE 30ML CUP PO PRN (19:30)
[2016-09-30] MEDS ORDERED: DEXTROSE 50% 50 ML SYRINGE IV PRN (19:30)
[2016-09-30] MEDS ORDERED: GLUCAGON 1 MG INJ IM PRN (19:30)
[2016-09-30] MEDS ORDERED: GLUCOSE GEL 15 GRAM TUBE PO PRN ×2 (19:30)
[2016-09-30 19:40] LABS: ADD UMIC NO; URINE BILIRUBIN (Dip) NEGATIVE (NEGATIVE); URINE BLOOD (Dip) NEGATIVE (NEGATIVE); URINE COLOR LT. YELLOW (YELLOW); URINE GLUCOSE (Dip) NEGATIVE (NEGATIVE); URINE KETONES (Dip) NEGATIVE (NEGATIVE); URINE LEUKOCYTE ESTERASE (Dip) NEGATIVE (NEGATIVE); URINE NITRITE (Dip) NEGATIVE (NEGATIVE); URINE TOTAL PROTEIN (Dip) NEGATIVE (NEGATIVE); URINE UROBILINOGEN (Dip) 0.2 E.U./dL (0.1-1.0)
[2016-09-30] MEDS: INSULIN ASPART [NOVOLOG] 3 ML PEN SC SCH (21:00)
[2016-09-30] MEDS: DOCUSATE SODIUM 100 MG CAP PO SCH (21:04)
[2016-09-30] MEDS: FAMOTIDINE 20 MG TAB PO SCH (21:05)
[2016-09-30] MEDS: GABAPENTIN 100 MG CAP PO SCH (21:05)
[2016-09-30] MEDS: SENNA TAB PO SCH (21:05)
[2016-09-30] MEDS: ATORVASTATIN 80 MG TAB PO SCH (21:06)
[2016-09-30] MEDS: CYCLOSPORINE 0.05% OPH DROPERETTE BOTH EYES SCH (21:06)
[2016-09-30] MEDS: METOPROLOL (XL) 50 MG TAB PO SCH (21:07)
[2016-10-01] MEDS: OLOPATADINE XX SCH ×3 (03:00→18:26)
[2016-10-01 06:37] LABS: ADD SCAN DIFF NO
[2016-10-01 06:45] LABS: BASOPHILS % 0.5 % (0.0-2.0); EOSINOPHILS # 0.4 10^3/ul (0.0-0.5); EOSINOPHILS % 5.2 % (0.0-7.0); HEMATOCRIT 35.7 % (37.0-47.0); HEMOGLOBIN 11.3 g/dl (12.0-16.0); LYMPHOCYTES # 2.6 10^3/ul (0.8-2.9); MEAN CORPUSCULAR HGB CONC 31.7 g/dl (32.0-37.0); MEAN CORPUSCULAR VOLUME 88.6 fl (82.0-101.0); MEAN PLATELET VOLUME 9.4 fl (7.4-10.4); MONOCYTE # 0.6 10^3/ul (0.3-0.9); MONOCYTES % 8.2 % (0.0-11.0); NEUTROPHIL # 3.6 10^3/ul (1.6-7.5); NEUTROPHILS % 49.8 % (39.0-77.0); PLATELET COUNT 251 10^3/UL (140-415); RED BLOOD COUNT 4.03 10^6/ul (4.20-5.40); RED CELL DISTRIBUTION WIDTH 13.5 % (11.5-14.5); WHITE BLOOD COUNT 7.3 10^3/ul (4.8-10.8)
[2016-10-01 06:57] LABS: ALBUMIN 3.4 g/dl (3.3-4.9)
[2016-10-01 06:58] LABS: POTASSIUM 4.1 mmol/L (3.5-5.1)
[2016-10-01 07:00] LABS: ALBUMIN/GLOBULIN RATIO 0.85; BILIRUBIN,INDIRECT 0.2 mg/dl (0-1.1); BILIRUBIN,TOTAL 0.2 mg/dl (0.2-1.3); CREATININE 1.04 mg/dl (0.44-1.00); TOTAL PROTEIN 7.4 g/dl (6.1-8.1)
[2016-10-01] MEDS: INSULIN ASPART [NOVOLOG] 3 ML PEN SC SCH ×7 (07:35→20:07)
[2016-10-01] MEDS: ENOXAPARIN 30 MG/0.3 ML SYG SC SCH (08:32)
[2016-10-01] MEDS: INSULIN GLARGINE [LANtus] 3 ML PEN SC SCH (08:32)
[2016-10-01] MEDS: DOCUSATE SODIUM 100 MG CAP PO SCH ×2 (08:34→20:07)
[2016-10-01] MEDS: SOLIFENACIN 5 MG TAB PO SCH (08:34)
[2016-10-01] MEDS: METOPROLOL (XL) 50 MG TAB PO SCH ×2 (08:34→20:07)
[2016-10-01] MEDS: GABAPENTIN 100 MG CAP PO SCH ×2 (08:34→20:07)
[2016-10-01] MEDS: CYCLOSPORINE 0.05% OPH DROPERETTE BOTH EYES SCH ×2 (08:34→20:06)
[2016-10-01] MEDS: CLOPIDOGREL 75 MG TAB PO SCH (08:35)
[2016-10-01] MEDS: ASPIRIN (EC) 81 MG TAB PO SCH (08:50)
--- NOTE | 2016-10-01 12:50 | CONS ---
DATE OF ADMISSION: 09/30/2016 DATE OF CONSULTATION: 10/01/2016 REHABILITATION POST ADMISSION PHYSICIAN EVALUATION REHABILITATION IMPAIRMENT CATEGORY: Toxic metabolic encephalopathy on superimposed recent ischemic CVA with right-sided weakness. ACTIVE COMORBIDITIES: 1. Acute on chronic kidney disease. 2. Status post uremia/UTI. 3. Hypertension. 4. Diabetes mellitus type 2. 5. Hypothyroidism. 6. L1 compression fracture. 7. Dysphagia. 8. Impairments in self-care, mobility, and cognition. HISTORY OF PRESENT ILLNESS: The patient is a pleasant 76-year-old female with a history of recent i schemic CVA with right-sided weakness and dysarthria in addition to recent shingles who was transfer red to [facility] for rehabilitation; however, was noted to have worsening confusion and weakness a nd brought to [facility]. Head CT was negative for acute bleed. The patient was felt likely to have toxic metabolic encephalopathy. Her hospital course was notable for uremia and UTI in addition to acute on chronic kidney injury in addition to labile blood sugars and dysphagia. The patient has now been cleared to transfer to the rehabilitation unit for comprehensive interdisc iplinary rehab care in view of the fact that the multiple medical comorbidities. FUNCTIONAL HISTORY: Prior to recent events, the patient was independent in self-care tasks and mobi lity. Currently, the patient requires maximal assist for self-care and mobility tasks. I have reviewed the preadmission screen and the patient's current functional status is consistent wi th the preadmission screen. SOCIAL HISTORY: The patient has supportive family and they hope to have her return home upon discha [facility]. PAST MEDICAL HISTORY: 1. Recent cerebrovascular accident. 2. Recent shingles. 3. Hypertension. 4. Diabetes mellitus type 2. 5. Lumbar compression fracture. 6. Hypothyroidism. 7. Degenerative joint disease. 8. Glaucoma. CURRENT MEDICATIONS: 1. Lipitor 80 mg p.o. daily. 2. Plavix 75 mg p.o. daily. 3. Restasis eyedrops. 4. Colace 100 mg p.o. b.i.d. 5. Lovenox 30 mg subcutaneous daily. 6. Pepcid 20 mg p.o. at bedtime. 7. Neurontin 100 mg p.o. b.i.d. 8. [place] p.r.n. 9. Insulin sliding scale. 10. NovoLog 18 units subQ with meals. 11. Lantus 61 units subQ daily. 12. Toprol-XL 50 mg p.o. b.i.d. 13. VESIcare 5 mg p.o. daily. ALLERGIES: THE PATIENT WITH NO KNOWN DRUG ALLERGIES. PHYSICAL EXAMINATION: VITAL SIGNS: The patient is currently afebrile with stable vital signs. HEENT: Extraocular motion intact. Oropharynx clear. NECK: Supple. LUNGS: Clear anteriorly. CARDIAC: S1, S2. ABDOMEN: Soft, nontender, positive bowel sounds. NEUROLOGIC: She is awake and alert. She has some notable expressive aphasia. She will follow simp le 1-step commands. She demonstrates antigravity strength in bilateral upper extremity and left low er extremity. She has 2/5 strength in the right lower extremity. PLAN: The patient has been admitted for comprehensive interdisciplinary acute rehab and is anticipa isaac to tolerate 3 hours of daily therapy in divided doses for at least 5/7 days a week. The treatme nt plan will include: 1. Physical therapy to focus on bed mobility, transfers, and household ambulation with the goal of having the patient reach a standby assist at the wheelchair level and progressive ambulation. 2. Occupational therapy to focus on hygiene, grooming, dressing, bathing, and toileting activities with the goal of having the patient reach a standby assist at the wheelchair level. 3. Full speech therapy for cognitive assessment and training in addition to communication, educatio n, and training and dysphagia management with the goal of having the patient be able to express basi c needs and to meet nutritional needs by mouth. 4. Rehabilitation nursing for carryover of therapeutic interventions, the goal of continent of ángel l and bladder, and the goal of patient and family education with regard to the aforementioned issues . REHABILITATION BARRIER: Dysphagia. INTERVENTION FOR BARRIER: Speech therapy. ESTIMATED LENGTH OF STAY: 14 days. DISPOSITION GOAL: Home. I acknowledge that I performed a full physical examination on this patient within 24 hours of admiss ion to the rehabilitation unit and believe the patient is a good candidate for comprehensive interdi sciplinary rehab care and is anticipated to make reasonable goals in a reasonable period of time as outlined above. Dictated By: SHADY GRANADOS/JEAN Conf#: [id number] DID#: [id number]
[2016-10-01 14:52] VITALS: BP 149/81; PULSE 62; RESP 18
--- NOTE | 2016-10-01 16:35 | CONS ---
DATE OF ADMISSION: 09/30/2016 DATE OF CONSULTATION: 10/01/2016 TYPE OF CONSULTATION: MEDICINE CONSULTATION HISTORY OF PRESENT ILLNESS: This is a 76-year-old lady with an ischemic cerebrovascular accident wi th subsequent right hemiplegia, dysarthria, complicated by shingles, initially admitted to [facility] where she was found to have worsening confusion and subsequently transfer red to [facility] with no evidence of acute neurological bleeding. The patient wa s thought to have toxic metabolic encephalopathy, Her course was complicated by urinary tract infec tion, uremia with acute on chronic injury. She subsequently transferred to the rehab unit for urmila nuing care. PAST MEDICAL HISTORY: 1. Recent CVA. 2. Urinary tract infection with uremia. 3. Type 2 diabetes. 4. Hypothyroidism. 5. Hypertension. 6. Chronic kidney disease. MEDICATIONS: Per chart. ALLERGIES: NONE. SOCIAL HISTORY: Smoker, no alcohol, no history of drug use. FAMILY HISTORY: Noncontributory. SYSTEMS REVIEW: A 12-point review of systems was negative other than that mentioned above. PHYSICAL EXAMINATION: GENERAL: Elderly-appearing lady, comfortable at rest, complaining of mild back pain, but no nausea, no vomiting, no loss of sensation to lower extremities. VITAL SIGNS: Temperature 98, pulse 62, blood pressure 149/80, O2 saturation 96% on room air. NECK: Supple. No JVD or lymphadenopathy. CARDIAC: S1, S2, no added sounds or murmurs. CHEST: Diminished air entry bilaterally. ABDOMEN: Soft, nontender. No guarding or rebound. EXTREMITIES: No cyanosis, clubbing, 1+ edema. NEUROLOGIC: Generalized weakness. LABORATORY DATA: White count 7.3, hemoglobin 11.3, platelets of 215. BUN 27, creatinine 1.04. IMPRESSION: 1. Recent cerebrovascular accident. 2. Resolving encephalopathy. 3. L1 compression fractures, likely cause of her low back pain. 4. History of type 2 diabetes. 5. Essential hypertension. PLAN: 1. The patient is to continue with current medications including Lovenox and Plavix. 2. Endocrinology consult given the significant insulin requirements suggestive of insulin resistanc e. 3. Continue antihypertensives. 4. DVT and GI prophylaxis. 5. Physical therapy and speech therapy recommendations. Dictated By: SOCORRO KINGSLEY/JEAN Conf#: [id number] [facility]#: [id number]
[2016-10-01] MEDS: LACTULOSE 30ML CUP PO PRN (18:38)
--- NOTE | 2016-10-01 18:47 | CONS ---
DATE OF ADMISSION: 09/30/2016 DATE OF CONSULTATION: 10/01/2016 TYPE OF CONSULTATION: Psychological. REFERRING PHYSICIAN: Noah York MD CONSULTING PSYCHOLOGIST: Luis Fernando Vila, PhD REASON FOR CONSULTATION: This consultation was requested by Dr. Grupo York in order to evaluate the cognitive and emotional functioning of this patient related to her present medical condition. HISTORY OF PRESENT ILLNESS: The patient is a 76-year-old female. The patient had been residing at [facility]. There was some concern over physical condition and the fact that she was having slurred speech. The patient was then transferred to the ER and it was noted that she had exp ressive dysarthria with decreased alertness. The patient did have a stroke in August and appeared to have some acute metabolic encephalopathy. The patient does have some history of numerous other med ical problems including dementia. The patient is motivated to get better. The patient mainly speak s Danish and this interview was conducted with the assistance of the translation computer to help translate into [place]. The patient was confused and did have difficulty answering the questions. FAMILY AND SOCIAL HISTORY: The patient does have a daughter who is normally present and does help o ia. The patient has a daughter who was not present during this interview. The patient does want to return to her residence at [facility] after discharge. MEDICATIONS: The patient is currently not on any psychotropic medications. SUBSTANCE USE: The patient denies any use of alcohol or other drugs. The patient reports that she does not smoke. MENTAL STATUS EXAMINATION: APPEARANCE: The patient was seen in bed. She appeared to be of average height and weight. The pat ieannette is likely right-handed but could not answer that question when proposed to her. BEHAVIOR: The patient was cooperative during the consultation, but did have difficulty answering e questions and did appear to be confused at times. MOOD AND AFFECT: The patient's mood appears to be depressed. Affect does appear to be slightly anx ious. PERCEPTION: The patient reports no hallucinations or delusions. The patient was not alert to perso n, place, situation and time. MEMORY AND COGNITION: Memory and cognition appear to be impaired. She had difficulty recalling rec ent and remote events. The patient did feel that she was in the hospital, but could not tell hospit al name. The patient was not able to say the month or the year. The patient was able to say who th e technical publications writer is. INTELLIGENCE: Intelligence would appear to fall in the average range when she was functioning well. INSIGHT: Poor. JUDGMENT: Poor. THOUGHT CONTENT: The patient is concerned about her present medical condition. The patient does wa nt to return home as soon as possible. The patient is very confused and having difficulty coping at the present time. DISCUSSION: The patient may be able to benefit from some cognitive/behavioral psychotherapy while s he is on the unit. This psychotherapy would focus on her underlying cognitive dysfunction and try t o help see if she could focus some of her thinking. DIAGNOSTIC IMPRESSION: 1. 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 2. F03.90, unspecified dementia without behavioral disturbance. Thank you very much, Dr. Grupo York, for referring this individual. Please do not hesitate to ca ll if you have additional questions. Dictated By: LUIS FERNANDO VILA PHD UCHE/JEAN Conf#: [id number] DID#: [id number]
[2016-10-01 20:00] VITALS: BP 110/63; RESP 18
[2016-10-01] MEDS: FAMOTIDINE 20 MG TAB PO SCH (20:07)
[2016-10-01] MEDS: ATORVASTATIN 80 MG TAB PO SCH (20:07)
[2016-10-01] MEDS: SENNA TAB PO SCH (20:07)
[2016-10-02] MEDS: OLOPATADINE XX SCH ×3 (03:00→17:53)
[2016-10-02 07:30] VITALS: BP 151/74; RESP 20
[2016-10-02] MEDS: INSULIN ASPART [NOVOLOG] 3 ML PEN SC SCH ×7 (07:35→20:28)
[2016-10-02] MEDS: ASPIRIN (EC) 81 MG TAB PO SCH (08:27)
[2016-10-02] MEDS: HYDROCODONE/APAP (5/325) TAB PO PRN (08:27)
[2016-10-02] MEDS: CLOPIDOGREL 75 MG TAB PO SCH (08:27)
[2016-10-02] MEDS: GABAPENTIN 100 MG CAP PO SCH ×2 (08:27→20:27)
[2016-10-02] MEDS: SOLIFENACIN 5 MG TAB PO SCH (08:27)
[2016-10-02] MEDS: DOCUSATE SODIUM 100 MG CAP PO SCH ×2 (08:27→20:26)
[2016-10-02] MEDS: METOPROLOL (XL) 50 MG TAB PO SCH ×2 (08:28→20:27)
[2016-10-02] MEDS: INSULIN GLARGINE [LANtus] 3 ML PEN SC SCH (08:31)
[2016-10-02] MEDS: ENOXAPARIN 30 MG/0.3 ML SYG SC SCH (08:33)
[2016-10-02] MEDS: CYCLOSPORINE 0.05% OPH DROPERETTE BOTH EYES SCH ×2 (09:00→21:56)
--- NOTE | 2016-10-02 10:33 | PN ---
Date/Time of Note Date/Time of Note DATE: 10/02/16 TIME: 10:22 Assessment/Plan VTE Prophylaxis VTE Prophylaxis Intervention: LMWH Lines/Catheters IV Catheter Type (from Nrsg): Saline Lock Urinary Cath still in place: Yes Reason Cath still needed: other (indicate) Assessment/Plan Assessment/Plan 1. Toxic metabolic encephalopathy in the setting of UTI and uremia with acute on chronic kidney disease, with recent ischemic CVA with impaired mobility/gait/ ADLs/cognition, aphasia, and dysphagia. Continue PT/OT/ST. Max to total assistance for bed mobility and transfers. Continue modified diet per ST. Aspiration precautions. Continue secondary stroke prevention. 2. Acute on chronic kidney disease. Monitor renal function, avoid nephrotoxic agents. Internal medicine managing. 3. Hypertension. Monitor BP. Internal medicine medically managing. 4. Diabetes mellitus type 2. Continue to monitor blood sugars. Continue insulin regimen per internal medicine. 5. Anemia. Continue to monitor hemoglobin/hematocrit. 6. Old L1 compression fracture. Continue pain control. Subjective 24 Hr Interval Summary Free Text/Dictation Rehab progress note Subjective: No acute complaints this morning. ROS: Denies chest pain, no shortness of breath, no headache, no dizziness, no new weakness, no abdominal pain, no vomiting. Exam/Review of Systems Vital Signs Vitals Vital Signs Date Time Temp Pulse Resp B/P Pulse Ox O2 Delivery O2 Flow Rate FiO2 10/02/16 07:30 97.6 73 20 151/74 97 10/01/16 14:52 Room Air Intake and Output 10/01/16 10/01/16 10/02/16 15:00 23:00 07:00 Intake Total 950 ml 200 ml Output Total 300 ml Balance 650 ml 200 ml Exam General: Awake, alert, no acute distress CV: Regular rate, s1s2 Lungs: Symmetrical air entry bilaterally, no wheezing Abdomen soft, nontender : Lassiter catheter in place. Extremities without cyanosis Neuro: Follows simple commands. No apparent focal changes. Results Result Diagram: 10/01/16 0615 10/01/16 0515 Results 24 hrs Laboratory Tests Test 10/01/16 12:01 10/01/16 17:31 10/01/16 20:06 10/02/16 07:51 Bedside Glucose 187 107 134 134 Medications Medications Current Medications Acetaminophen (Tylenol Supp) 650 mg Q6H PRN [place] PAIN LEVEL 1-3 OR FEVER; Start 09/30/16 at 19:00 Acetaminophen (Tylenol Tab) 650 mg Q6H PRN PO PAIN LEVEL 1-3 OR FEVER; Start at 19:00 Aspirin (Halfprin) 81 mg DAILY PO Last administered on 10/02/16 08:27; Admin Dose 81 MG; Start 10/01/16 at 09:00 Atorvastatin Calcium (Lipitor) 80 mg DAILY@21 PO Last administered on 20:07; Admin Dose 80 MG; Start 09/30/16 at 21:00 Bisacodyl (Dulcolax) 5 mg DAILY PRN PO CONSTIPATION; Start 09/30/16 at 19:00 Bisacodyl (Dulcolax Supp) 10 mg DAILY PRN [place] CONSTIPATION; Start 09/30/16 at 19 :00 Clopidogrel Bisulfate (plaVIX) 75 mg DAILY PO Last administered on 10/02/16 08 :27; Admin Dose 75 MG; Start 10/01/16 at 09:00 Cyclosporine (Restasis) 1 drop Q12 BOTH EYES Last administered on 10/01/16 20: 06; Admin Dose 1 DROP; Start 09/30/16 at 21:00 Docusate Sodium (Colace) 100 mg Q12H PRN PO CONSTIPATION; Start 09/30/16 at 19: 00 Enoxaparin Sodium (Lovenox) 30 mg DAILY SC Last administered on 10/02/16 08:33 ; Admin Dose 30 MG; Start 10/01/16 at 09:00 Famotidine (Pepcid) 20 mg QHS PO Last administered on 10/01/16 20:07; Admin Dose 20 MG; Start 09/30/16 at 21:00 Gabapentin (Neurontin) 100 mg BID PO Last administered on 10/02/16 08:27; Admin Dose 100 MG; Start 09/30/16 at 21:00 Hydralazine HCl (Apresoline) 10 mg Q6H PRN IV ELEVATED BP SBP>160; Start at 19:00 Acetaminophen/ Hydrocodone Bitart ([place] (5/325)) 1 tab Q6H PRN PO MODERATE PAIN LEVEL 4-6 Last administered on 10/02/16 08:27; Admin Dose 1 TAB; Start at 19:00 Insulin Glargine (Lantus) 61 unit DAILY SC Last administered on 10/02/16 08:31 ; Admin Dose 61 UNIT; Start 10/01/16 at 09:00 Metoprolol Succinate (Toprol Xl) 50 mg BID PO Last administered on 10/02/16 08 :28; Admin Dose 50 MG; Start 09/30/16 at 21:00 Miscellaneous Information (*Order Clarification Bulletin) MEDICATION REQUIRES CLARIFICATION: Q8H XX ; Start 09/30/16 at 19:00 Morphine Sulfate (morphine) 2 mg Q4H PRN IV SEVERE PAIN LEVEL 7-10; Start 09/30 at 19:00 Ondansetron HCl (Zofran Inj) 4 mg Q6H PRN IV NAUSEA AND/OR VOMITING; Start at 19:00 Solifenacin (Vesicare) 5 mg DAILY PO Last administered on 10/02/16 08:27; Admin Dose 5 MG; Start 10/01/16 at 09:00 Docusate Sodium (Colace) 100 mg BID PO Last administered on 10/02/16 08:27; Admin Dose 100 MG; Start 09/30/16 at 21:00 Senna (Senokot) 1 tab HS PO Last administered on 10/01/16 20:07; Admin Dose 1 TAB; Start 09/30/16 at 21:00 Magnesium Hydroxide (Milk Of Mag) 30 ml BID PRN PO CONSTIPATION; Start at 19:30 Lactulose (Enulose) 20 gm DAILY PRN PO CONSTIPATION Last administered on 18:38; Admin Dose 20 GM; Start 09/30/16 at 19:30 Miscellaneous Information 1 ea NOTE XX ; Start 09/30/16 at 19:30 Glucose (Glutose) 15 gm Q15M PRN PO DECREASED GLUCOSE; Start 09/30/16 at 19:30 Glucose (Glutose) 22.5 gm Q15M PRN PO DECREASED GLUCOSE; Start 09/30/16 at 19: 30 Dextrose (D50w Syringe) 25 ml Q15M PRN IV DECREASED GLUCOSE; Start 09/30/16 at 19:30 Dextrose (D50w Syringe) 50 ml Q15M PRN IV DECREASED GLUCOSE; Start 09/30/16 at 19:30 Glucagon (Glucagen) 1 mg Q15M PRN IM DECREASED GLUCOSE; Start 09/30/16 at 19:30 Glucose (Glutose) 15 gm Q15M PRN BUCCAL DECREASED GLUCOSE; Start 09/30/16 at 19 :30 OUSMANE PISANO Oct 02, 2016 10:32
--- NOTE | 2016-10-02 12:15 | CONS ---
Date/Time of Note Date/Time of Note DATE: 10/02/16 TIME: 12:13 Consult Date/Type/Reason Admit Date/Time Sep 30, 2016 at 17:35 Initial Consult Date Type of Consultation: internal medicine Subjective Patient comfortable this morning continues therapy Objective Vital Signs Date Time Temp Pulse Resp B/P Pulse Ox O2 Delivery O2 Flow Rate FiO2 10/02/16 07:30 97.6 73 20 151/74 97 10/01/16 14:52 Room Air Intake and Output 10/01/16 10/01/16 10/02/16 15:00 23:00 07:00 Intake Total 950 ml 200 ml Output Total 300 ml Balance 650 ml 200 ml Exam PHYSICAL EXAMINATION: GENERAL: Elderly-appearing lady, comfortable at rest, complaining of mild back pain, but no nausea, no vomiting, no loss of sensation to lower extremities. VITAL SIGNS: As above NECK: Supple. No JVD or lymphadenopathy. CARDIAC: S1, S2, no added sounds or murmurs. CHEST: Diminished air entry bilaterally. ABDOMEN: Soft, nontender. No guarding or rebound. EXTREMITIES: No cyanosis, clubbing, 1+ edema. NEUROLOGIC: Generalized weakness. Results/Medications Result Diagram: 10/01/16 0615 10/01/16 0515 Results 24 hrs Laboratory Tests Test 10/01/16 17:31 10/01/16 20:06 10/02/16 07:51 10/02/16 12:06 Bedside Glucose 107 134 134 248 H Medications Current Medications Acetaminophen (Tylenol Supp) 650 mg Q6H PRN [place] PAIN LEVEL 1-3 OR FEVER; Start 09/30/16 at 19:00 Acetaminophen (Tylenol Tab) 650 mg Q6H PRN PO PAIN LEVEL 1-3 OR FEVER; Start at 19:00 Aspirin (Halfprin) 81 mg DAILY PO Last administered on 10/02/16 08:27; Admin Dose 81 MG; Start 10/01/16 at 09:00 Atorvastatin Calcium (Lipitor) 80 mg DAILY@21 PO Last administered on 20:07; Admin Dose 80 MG; Start 09/30/16 at 21:00 Bisacodyl (Dulcolax) 5 mg DAILY PRN PO CONSTIPATION; Start 09/30/16 at 19:00 Bisacodyl (Dulcolax Supp) 10 mg DAILY PRN [place] CONSTIPATION; Start 09/30/16 at 19 :00 Clopidogrel Bisulfate (plaVIX) 75 mg DAILY PO Last administered on 10/02/16 08 :27; Admin Dose 75 MG; Start 10/01/16 at 09:00 Cyclosporine (Restasis) 1 drop Q12 BOTH EYES Last administered on 10/01/16 20: 06; Admin Dose 1 DROP; Start 09/30/16 at 21:00 Docusate Sodium (Colace) 100 mg Q12H PRN PO CONSTIPATION; Start 09/30/16 at 19: 00 Enoxaparin Sodium (Lovenox) 30 mg DAILY SC Last administered on 10/02/16 08:33 ; Admin Dose 30 MG; Start 10/01/16 at 09:00 Famotidine (Pepcid) 20 mg QHS PO Last administered on 10/01/16 20:07; Admin Dose 20 MG; Start 09/30/16 at 21:00 Gabapentin (Neurontin) 100 mg BID PO Last administered on 10/02/16 08:27; Admin Dose 100 MG; Start 09/30/16 at 21:00 Hydralazine HCl (Apresoline) 10 mg Q6H PRN IV ELEVATED BP SBP>160; Start at 19:00 Acetaminophen/ Hydrocodone Bitart ([place] (5/325)) 1 tab Q6H PRN PO MODERATE PAIN LEVEL 4-6 Last administered on 10/02/16 08:27; Admin Dose 1 TAB; Start at 19:00 Insulin Glargine (Lantus) 61 unit DAILY SC Last administered on 10/02/16 08:31 ; Admin Dose 61 UNIT; Start 10/01/16 at 09:00 Metoprolol Succinate (Toprol Xl) 50 mg BID PO Last administered on 10/02/16 08 :28; Admin Dose 50 MG; Start 09/30/16 at 21:00 Miscellaneous Information (*Order Clarification Bulletin) MEDICATION REQUIRES CLARIFICATION: Q8H XX ; Start 09/30/16 at 19:00 Morphine Sulfate (morphine) 2 mg Q4H PRN IV SEVERE PAIN LEVEL 7-10; Start 09/30 at 19:00 Ondansetron HCl (Zofran Inj) 4 mg Q6H PRN IV NAUSEA AND/OR VOMITING; Start at 19:00 Solifenacin (Vesicare) 5 mg DAILY PO Last administered on 10/02/16 08:27; Admin Dose 5 MG; Start 10/01/16 at 09:00 Docusate Sodium (Colace) 100 mg BID PO Last administered on 10/02/16 08:27; Admin Dose 100 MG; Start 09/30/16 at 21:00 Senna (Senokot) 1 tab HS PO Last administered on 10/01/16 20:07; Admin Dose 1 TAB; Start 09/30/16 at 21:00 Magnesium Hydroxide (Milk Of Mag) 30 ml BID PRN PO CONSTIPATION; Start at 19:30 Lactulose (Enulose) 20 gm DAILY PRN PO CONSTIPATION Last administered on 18:38; Admin Dose 20 GM; Start 09/30/16 at 19:30 Miscellaneous Information 1 ea NOTE XX ; Start 09/30/16 at 19:30 Glucose (Glutose) 15 gm Q15M PRN PO DECREASED GLUCOSE; Start 09/30/16 at 19:30 Glucose (Glutose) 22.5 gm Q15M PRN PO DECREASED GLUCOSE; Start 09/30/16 at 19: 30 Dextrose (D50w Syringe) 25 ml Q15M PRN IV DECREASED GLUCOSE; Start 09/30/16 at 19:30 Dextrose (D50w Syringe) 50 ml Q15M PRN IV DECREASED GLUCOSE; Start 09/30/16 at 19:30 Glucagon (Glucagen) 1 mg Q15M PRN IM DECREASED GLUCOSE; Start 09/30/16 at 19:30 Glucose (Glutose) 15 gm Q15M PRN BUCCAL DECREASED GLUCOSE; Start 09/30/16 at 19 :30 Assessment/Plan Chief Complaint/Hosp Course IMPRESSION: 1. Recent cerebrovascular accident. 2. Resolving encephalopathy. 3. L1 compression fractures, likely cause of her low back pain. 4. History of type 2 diabetes. 5. Essential hypertension. PLAN: 1. The patient is to continue with current medications including Lovenox and Plavix. 2. Endocrinology recommendations regarding glycemic management 3. Continue antihypertensives. 4. DVT and GI prophylaxis. 5. Physical therapy and speech therapy recommendations. Problems: SOCORRO GARBER MD, [facility] Oct 02, 2016 12:15
[2016-10-02] MEDS: DEXTROSE 50% 50 ML SYRINGE IV PRN (17:12)
[2016-10-02 19:25] VITALS: BP 123/58; RESP 19
[2016-10-02] MEDS: SENNA TAB PO SCH (20:26)
[2016-10-02] MEDS: FAMOTIDINE 20 MG TAB PO SCH (20:26)
[2016-10-02] MEDS: ATORVASTATIN 80 MG TAB PO SCH (20:26)
[2016-10-03] MEDS: OLOPATADINE XX SCH (03:00)
[2016-10-03 06:43] LABS: ADD SCAN DIFF NO
[2016-10-03 06:48] LABS: BASOPHILS % 0.5 % (0.0-2.0); EOSINOPHILS # 0.3 10^3/ul (0.0-0.5); EOSINOPHILS % 4.3 % (0.0-7.0); HEMATOCRIT 35.7 % (37.0-47.0); HEMOGLOBIN 11.7 g/dl (12.0-16.0); LYMPHOCYTES # 2.2 10^3/ul (0.8-2.9); LYMPHOCYTES % 28.4 % (15.0-51.0); MEAN CORPUSCULAR HEMOGLOBIN 28.7 pg (29.0-33.0); MEAN CORPUSCULAR HGB CONC 32.8 g/dl (32.0-37.0); MEAN CORPUSCULAR VOLUME 87.7 fl (82.0-101.0); MEAN PLATELET VOLUME 9.6 fl (7.4-10.4); MONOCYTE # 0.6 10^3/ul (0.3-0.9); MONOCYTES % 8.2 % (0.0-11.0); NEUTROPHIL # 4.6 10^3/ul (1.6-7.5); NEUTROPHILS % 58.3 % (39.0-77.0); PLATELET COUNT 271 10^3/UL (140-415); RED BLOOD COUNT 4.07 10^6/ul (4.20-5.40); RED CELL DISTRIBUTION WIDTH 13.6 % (11.5-14.5); WHITE BLOOD COUNT 7.8 10^3/ul (4.8-10.8)
[2016-10-03 07:09] LABS: POTASSIUM 3.7 mmol/L (3.5-5.1)
[2016-10-03 07:12] LABS: CALCIUM 9.6 mg/dl (8.4-10.2); CREATININE 0.99 mg/dl (0.44-1.00)
[2016-10-03 07:30] VITALS: BP 161/67; RESP 18
[2016-10-03] MEDS: ASPIRIN (EC) 81 MG TAB PO SCH (08:12)
[2016-10-03] MEDS: SOLIFENACIN 5 MG TAB PO SCH (08:13)
[2016-10-03] MEDS: DOCUSATE SODIUM 100 MG CAP PO SCH ×2 (08:13→20:43)
[2016-10-03] MEDS: ENOXAPARIN 30 MG/0.3 ML SYG SC SCH (08:14)
[2016-10-03] MEDS: INSULIN ASPART [NOVOLOG] 3 ML PEN SC SCH ×6 (08:14→20:48)
[2016-10-03] MEDS: CLOPIDOGREL 75 MG TAB PO SCH (08:14)
[2016-10-03] MEDS: HYDROCODONE/APAP (5/325) TAB PO PRN ×2 (08:15→12:29)
[2016-10-03] MEDS: GABAPENTIN 100 MG CAP PO SCH ×2 (08:15→20:43)
[2016-10-03] MEDS: METOPROLOL (XL) 50 MG TAB PO SCH ×2 (08:15→20:48)
[2016-10-03] MEDS: CYCLOSPORINE 0.05% OPH DROPERETTE BOTH EYES SCH ×2 (08:15→22:42)
--- NOTE | 2016-10-03 12:13 | PN ---
Date/Time of Note Date/Time of Note DATE: 10/03/16 TIME: 12:09 Assessment/Plan VTE Prophylaxis VTE Prophylaxis Intervention: LMWH Lines/Catheters IV Catheter Type (from Nrsg): Saline Lock Urinary Cath still in place: Yes Reason Cath still needed: other (indicate) Assessment/Plan Assessment/Plan 1. Toxic metabolic encephalopathy in the setting of UTI and uremia with acute on chronic kidney disease, with recent ischemic CVA with impaired mobility/gait/ ADLs/cognition, aphasia, and dysphagia. Continue PT/OT/ST. Max assistance for upper body dressing and grooming. Continue modified diet per ST. Maintain aspiration precautions. Continue secondary stroke prevention per internal medicine. 2. Acute on chronic kidney disease. Monitor renal function, improving on labs today. Internal medicine managing. 3. Hypertension. Monitor BP. Internal medicine medically managing. 4. Diabetes mellitus type 2. Blood sugars uncontrolled, internal medicine adjusting insulin regimen. 5. Anemia. Continue to monitor hemoglobin/hematocrit, improving on labs today. 6. Old L1 compression fracture. Continue pain control, on neurontin and prn norco. Subjective 24 Hr Interval Summary Free Text/Dictation Rehab progress note Subjective: Reports moderate low back pain, no radicular symptoms. No new weakness or new paresthesias. ROS: Denies headache, no dizziness, no chest pain, no shortness of breath, no chills, no abdominal pain, no constipation. Exam/Review of Systems Vital Signs Vitals Vital Signs Date Time Temp Pulse Resp B/P Pulse Ox O2 Delivery O2 Flow Rate FiO2 10/03/16 07:30 98.3 75 18 161/67 97 10/01/16 14:52 Room Air Intake and Output 10/02/16 10/02/16 10/03/16 15:00 23:00 07:00 Intake Total 420 ml 200 ml Output Total 1100 ml 300 ml 800 ml Balance -1100 ml 120 ml -600 ml Exam General: Awake, alert, no acute distress CV: Regular rate, s1s2 Lungs: Decreased breath sounds bilaterally, no crackles or wheezing Abdomen/: Abdomen soft, nontender. Lassiter catheter in place. Extremities without cyanosis, no new swelling Neuro: No new focal changes. Follows simple commands. Results Result Diagram: 10/03/16 0610 10/03/16 0610 Results 24 hrs Laboratory Tests Test 10/02/16 17:06 10/02/16 17:25 10/02/16 20:22 10/03/16 04:25 Bedside Glucose 41 *L 192 104 155 Test 10/03/16 06:10 10/03/16 07:50 10/03/16 12:05 White Blood Count 7.8 Red Blood Count 4.07 L Hemoglobin 11.7 L Hematocrit 35.7 L Mean Corpuscular Volume 87.7 Mean Corpuscular Hemoglobin 28.7 L Mean Corpuscular Hemoglobin Concent 32.8 Red Cell Distribution Width 13.6 Platelet Count 271 Mean Platelet Volume 9.6 Neutrophils % 58.3 Lymphocytes % 28.4 Monocytes % 8.2 Eosinophils % 4.3 Basophils % 0.5 Nucleated Red Blood Cells % 0.0 Neutrophils # 4.6 Lymphocytes # 2.2 Monocytes # 0.6 Eosinophils # 0.3 Basophils # 0.0 Nucleated Red Blood Cells # 0.0 Sodium Level 142 Potassium Level 3.7 Chloride Level 108 Carbon Dioxide Level 22 Anion Gap 16 Blood Urea Nitrogen 26 H Creatinine 0.99 Glucose Level 203 Calcium Level 9.6 Bedside Glucose 221 H 269 H Medications Medications Current Medications Acetaminophen (Tylenol Supp) 650 mg Q6H PRN [place] PAIN LEVEL 1-3 OR FEVER; Start 09/30/16 at 19:00 Acetaminophen (Tylenol Tab) 650 mg Q6H PRN PO PAIN LEVEL 1-3 OR FEVER; Start at 19:00 Aspirin (Halfprin) 81 mg DAILY PO Last administered on 10/03/16 08:12; Admin Dose 81 MG; Start 10/01/16 at 09:00 Atorvastatin Calcium (Lipitor) 80 mg DAILY@21 PO Last administered on 20:26; Admin Dose 80 MG; Start 09/30/16 at 21:00 Bisacodyl (Dulcolax) 5 mg DAILY PRN PO CONSTIPATION; Start 09/30/16 at 19:00 Bisacodyl (Dulcolax Supp) 10 mg DAILY PRN [place] CONSTIPATION; Start 09/30/16 at 19 :00 Clopidogrel Bisulfate (plaVIX) 75 mg DAILY PO Last administered on 10/03/16 08 :14; Admin Dose 75 MG; Start 10/01/16 at 09:00 Cyclosporine (Restasis) 1 drop Q12 BOTH EYES Last administered on 10/03/16 08: 15; Admin Dose 1 DROP; Start 09/30/16 at 21:00 Docusate Sodium (Colace) 100 mg Q12H PRN PO CONSTIPATION; Start 09/30/16 at 19: 00 Enoxaparin Sodium (Lovenox) 30 mg DAILY SC Last administered on 10/03/16 08:14 ; Admin Dose 30 MG; Start 10/01/16 at 09:00 Famotidine (Pepcid) 20 mg QHS PO Last administered on 10/02/16 20:26; Admin Dose 20 MG; Start 09/30/16 at 21:00 Gabapentin (Neurontin) 100 mg BID PO Last administered on 10/03/16 08:15; Admin Dose 100 MG; Start 09/30/16 at 21:00 Hydralazine HCl (Apresoline) 10 mg Q6H PRN IV ELEVATED BP SBP>160; Start at 19:00 Acetaminophen/ Hydrocodone Bitart ([place] (5/325)) 1 tab Q6H PRN PO MODERATE PAIN LEVEL 4-6 Last administered on 10/03/16 08:15; Admin Dose 1 TAB; Start at 19:00 Metoprolol Succinate (Toprol Xl) 50 mg BID PO Last administered on 10/03/16 08 :15; Admin Dose 50 MG; Start 09/30/16 at 21:00 Morphine Sulfate (morphine) 2 mg Q4H PRN IV SEVERE PAIN LEVEL 7-10; Start 09/30 at 19:00 Ondansetron HCl (Zofran Inj) 4 mg Q6H PRN IV NAUSEA AND/OR VOMITING; Start at 19:00 Solifenacin (Vesicare) 5 mg DAILY PO Last administered on 10/03/16 08:13; Admin Dose 5 MG; Start 10/01/16 at 09:00 Docusate Sodium (Colace) 100 mg BID PO Last administered on 10/03/16 08:13; Admin Dose 100 MG; Start 09/30/16 at 21:00 Senna (Senokot) 1 tab HS PO Last administered on 10/02/16 20:26; Admin Dose 1 TAB; Start 09/30/16 at 21:00 Magnesium Hydroxide (Milk Of Mag) 30 ml BID PRN PO CONSTIPATION; Start at 19:30 Lactulose (Enulose) 20 gm DAILY PRN PO CONSTIPATION Last administered on 18:38; Admin Dose 20 GM; Start 09/30/16 at 19:30 Miscellaneous Information 1 ea NOTE XX ; Start 09/30/16 at 19:30 Glucose (Glutose) 15 gm Q15M PRN PO DECREASED GLUCOSE; Start 09/30/16 at 19:30 Glucose (Glutose) 22.5 gm Q15M PRN PO DECREASED GLUCOSE; Start 09/30/16 at 19: 30 Dextrose (D50w Syringe) 25 ml Q15M PRN IV DECREASED GLUCOSE; Start 09/30/16 at 19:30 Dextrose (D50w Syringe) 50 ml Q15M PRN IV DECREASED GLUCOSE Last administered on 10/02/16 17:12; Admin Dose 50 ML; Start 09/30/16 at 19:30 Glucagon (Glucagen) 1 mg Q15M PRN IM DECREASED GLUCOSE; Start 09/30/16 at 19:30 Glucose (Glutose) 15 gm Q15M PRN BUCCAL DECREASED GLUCOSE; Start 09/30/16 at 19 :30 Insulin Glargine (Lantus) 52 unit DAILY SC ; Start 10/04/16 at 09:00 Patient Own Medication 1 ea DAILY BOTH EYES ; Start 10/03/16 at 12:00 OUSMANE PISANO Oct 03, 2016 12:13
[2016-10-03] MEDS: EYE BOTH EYES SCH (12:19)
[2016-10-03] MEDS: PAZEO BOTH EYES SCH (12:19)
--- NOTE | 2016-10-03 15:13 | CONS ---
Date/Time of Note Date/Time of Note DATE: 10/03/16 TIME: 15:11 Consult Date/Type/Reason Admit Date/Time Sep 30, 2016 at 17:35 Type of Consultation: internal medicine Subjective Patient noted to have hypoglycemic events but was asymptomatic. Objective Vital Signs Date Time Temp Pulse Resp B/P Pulse Ox O2 Delivery O2 Flow Rate FiO2 10/03/16 07:30 98.3 75 18 161/67 97 10/01/16 14:52 Room Air Intake and Output 10/02/16 10/02/16 10/03/16 15:00 23:00 07:00 Intake Total 420 ml 200 ml Output Total 1100 ml 300 ml 800 ml Balance -1100 ml 120 ml -600 ml Exam PHYSICAL EXAMINATION: GENERAL: Elderly-appearing lady, comfortable at rest, complaining of mild back pain, but no nausea, no vomiting, no loss of sensation to lower extremities. VITAL SIGNS: As above NECK: Supple. No JVD or lymphadenopathy. CARDIAC: S1, S2, no added sounds or murmurs. CHEST: Diminished air entry bilaterally. ABDOMEN: Soft, nontender. No guarding or rebound. EXTREMITIES: No cyanosis, clubbing, 1+ edema. NEUROLOGIC: Generalized weakness. Results/Medications Result Diagram: 10/03/16 0610 10/03/16 0610 Results 24 hrs Laboratory Tests Test 10/02/16 17:06 10/02/16 17:25 10/02/16 20:22 10/03/16 04:25 Bedside Glucose 41 *L 192 104 155 Test 10/03/16 06:10 10/03/16 07:50 10/03/16 12:05 White Blood Count 7.8 Red Blood Count 4.07 L Hemoglobin 11.7 L Hematocrit 35.7 L Mean Corpuscular Volume 87.7 Mean Corpuscular Hemoglobin 28.7 L Mean Corpuscular Hemoglobin Concent 32.8 Red Cell Distribution Width 13.6 Platelet Count 271 Mean Platelet Volume 9.6 Neutrophils % 58.3 Lymphocytes % 28.4 Monocytes % 8.2 Eosinophils % 4.3 Basophils % 0.5 Nucleated Red Blood Cells % 0.0 Neutrophils # 4.6 Lymphocytes # 2.2 Monocytes # 0.6 Eosinophils # 0.3 Basophils # 0.0 Nucleated Red Blood Cells # 0.0 Sodium Level 142 Potassium Level 3.7 Chloride Level 108 Carbon Dioxide Level 22 Anion Gap 16 Blood Urea Nitrogen 26 H Creatinine 0.99 Glucose Level 203 Calcium Level 9.6 Bedside Glucose 221 H 269 H Medications Current Medications Acetaminophen (Tylenol Supp) 650 mg Q6H PRN [place] PAIN LEVEL 1-3 OR FEVER; Start 09/30/16 at 19:00 Acetaminophen (Tylenol Tab) 650 mg Q6H PRN [place] PAIN LEVEL 1-3 OR FEVER; Start at 19:00 Aspirin (Halfprin) 81 mg DAILY PO Last administered on 10/03/16 08:12; Admin Dose 81 MG; Start 10/01/16 at 09:00 Atorvastatin Calcium (Lipitor) 80 mg DAILY@21 PO Last administered on 20:26; Admin Dose 80 MG; Start 09/30/16 at 21:00 Bisacodyl (Dulcolax) 5 mg DAILY PRN PO CONSTIPATION; Start 09/30/16 at 19:00 Bisacodyl (Dulcolax Supp) 10 mg DAILY PRN [place] CONSTIPATION; Start 09/30/16 at 19 :00 Clopidogrel Bisulfate (plaVIX) 75 mg DAILY PO Last administered on 10/03/16 08 :14; Admin Dose 75 MG; Start 10/01/16 at 09:00 Cyclosporine (Restasis) 1 drop Q12 BOTH EYES Last administered on 10/03/16 08: 15; Admin Dose 1 DROP; Start 09/30/16 at 21:00 Docusate Sodium (Colace) 100 mg Q12H PRN PO CONSTIPATION; Start 09/30/16 at 19: 00 Enoxaparin Sodium (Lovenox) 30 mg DAILY SC Last administered on 10/03/16 08:14 ; Admin Dose 30 MG; Start 10/01/16 at 09:00 Famotidine (Pepcid) 20 mg QHS PO Last administered on 10/02/16 20:26; Admin Dose 20 MG; Start 09/30/16 at 21:00 Gabapentin (Neurontin) 100 mg BID PO Last administered on 10/03/16 08:15; Admin Dose 100 MG; Start 09/30/16 at 21:00 Hydralazine HCl (Apresoline) 10 mg Q6H PRN IV ELEVATED BP SBP>160; Start at 19:00 Acetaminophen/ Hydrocodone Bitart ([place] (5/325)) 1 tab Q6H PRN PO MODERATE PAIN LEVEL 4-6 Last administered on 10/03/16 12:29; Admin Dose 1 TAB; Start at 19:00 Metoprolol Succinate (Toprol Xl) 50 mg BID PO Last administered on 10/03/16 08 :15; Admin Dose 50 MG; Start 09/30/16 at 21:00 Morphine Sulfate (morphine) 2 mg Q4H PRN IV SEVERE PAIN LEVEL 7-10; Start 09/30 at 19:00 Ondansetron HCl (Zofran Inj) 4 mg Q6H PRN IV NAUSEA AND/OR VOMITING; Start at 19:00 Solifenacin (Vesicare) 5 mg DAILY PO Last administered on 10/03/16 08:13; Admin Dose 5 MG; Start 10/01/16 at 09:00 Docusate Sodium (Colace) 100 mg BID PO Last administered on 10/03/16 08:13; Admin Dose 100 MG; Start 09/30/16 at 21:00 Senna (Senokot) 1 tab HS PO Last administered on 10/02/16 20:26; Admin Dose 1 TAB; Start 09/30/16 at 21:00 Magnesium Hydroxide (Milk Of Mag) 30 ml BID PRN PO CONSTIPATION; Start at 19:30 Lactulose (Enulose) 20 gm DAILY PRN PO CONSTIPATION Last administered on 18:38; Admin Dose 20 GM; Start 09/30/16 at 19:30 Miscellaneous Information 1 ea NOTE XX ; Start 09/30/16 at 19:30 Glucose (Glutose) 15 gm Q15M PRN PO DECREASED GLUCOSE; Start 09/30/16 at 19:30 Glucose (Glutose) 22.5 gm Q15M PRN PO DECREASED GLUCOSE; Start 09/30/16 at 19: 30 Dextrose (D50w Syringe) 25 ml Q15M PRN IV DECREASED GLUCOSE; Start 09/30/16 at 19:30 Dextrose (D50w Syringe) 50 ml Q15M PRN IV DECREASED GLUCOSE Last administered on 10/02/16 17:12; Admin Dose 50 ML; Start 09/30/16 at 19:30 Glucagon (Glucagen) 1 mg Q15M PRN IM DECREASED GLUCOSE; Start 09/30/16 at 19:30 Glucose (Glutose) 15 gm Q15M PRN BUCCAL DECREASED GLUCOSE; Start 09/30/16 at 19 :30 Insulin Glargine (Lantus) 52 unit DAILY SC ; Start 10/04/16 at 09:00 Patient Own Medication 1 ea DAILY BOTH EYES Last administered on 10/03/16t 12: 19; Admin Dose 1 EA; Start 10/03/16 at 12:00 Assessment/Plan Chief Complaint/Hosp Course IMPRESSION: 1. Recent cerebrovascular accident. 2. Resolving encephalopathy. 3. L1 compression fractures, likely cause of her low back pain. 4. History of insulin-dependent diabetes 5. Essential hypertension. PLAN: 1. The patient is to continue with current medications including Lovenox and Plavix. 2. Decrease Lantus and NovoLog given recent hypoglycemic events. family living educator evaluation, hypoglycemia might be secondary to decreased by mouth intake. 3. Continue antihypertensives. 4. DVT and GI prophylaxis. 5. Physical therapy and speech therapy recommendations. Problems: SOCORRO GARBER MD, [facility] Oct 03, 2016 15:13
[2016-10-03 20:22] VITALS: BP 123/57; RESP 18
[2016-10-03] MEDS: ATORVASTATIN 80 MG TAB PO SCH (20:43)
[2016-10-03] MEDS: SENNA TAB PO SCH (20:43)
[2016-10-03] MEDS: FAMOTIDINE 20 MG TAB PO SCH (20:44)
[2016-10-04] MEDS: INSULIN ASPART [NOVOLOG] 3 ML PEN SC SCH ×7 (07:35→21:00)
[2016-10-04] MEDS: ENOXAPARIN 30 MG/0.3 ML SYG SC SCH (09:14)
[2016-10-04] MEDS: PAZEO BOTH EYES SCH (09:18)
[2016-10-04] MEDS: EYE BOTH EYES SCH (09:18)
[2016-10-04] MEDS: INSULIN GLARGINE [LANtus] 3 ML PEN SC SCH (09:18)
[2016-10-04] MEDS: CLOPIDOGREL 75 MG TAB PO SCH (09:19)
[2016-10-04] MEDS: SOLIFENACIN 5 MG TAB PO SCH (09:19)
[2016-10-04] MEDS: GABAPENTIN 100 MG CAP PO SCH ×2 (09:19→20:37)
[2016-10-04] MEDS: METOPROLOL (XL) 50 MG TAB PO SCH ×2 (09:19→20:37)
[2016-10-04] MEDS: DOCUSATE SODIUM 100 MG CAP PO SCH ×2 (09:19→20:36)
[2016-10-04] MEDS: ASPIRIN (EC) 81 MG TAB PO SCH (09:19)
[2016-10-04] MEDS: CYCLOSPORINE 0.05% OPH DROPERETTE BOTH EYES SCH ×2 (09:26→21:00)
--- NOTE | 2016-10-04 13:15 | PN ---
Date/Time of Note Date/Time of Note DATE: 10/04/16 TIME: 13:13 Assessment/Plan VTE Prophylaxis VTE Prophylaxis Intervention: LMWH Lines/Catheters IV Catheter Type (from Nrsg): Saline Lock Urinary Cath still in place: Yes Reason Cath still needed: other (indicate) Assessment/Plan Assessment/Plan 1. Toxic metabolic encephalopathy secondary to UTI and uremia with acute on chronic kidney disease, with recent ischemic CVA with impaired mobility/gait/ ADLs/cognition, aphasia, and dysphagia. Medical management per internal medicine. Continue PT/OT/ST. Max assist for wheelchair mobility. Continue modified diet per ST.Continue secondary stroke prevention. 2. Acute on chronic kidney disease. Continue to monitor renal function, improving on last labs. Internal medicine managing. 3. Hypertension. Internal medicine medically managing. Continue to monitor, in fair control. 4. Diabetes mellitus type 2. Internal medicine has adjusted insulin regimen, continue to monitor blood sugars. 5. Anemia. Continue to monitor hemoglobin/hematocrit, improving on labs yesterday. 6. Old L1 compression fracture. Continue pain regimen. Subjective 24 Hr Interval Summary Free Text/Dictation Rehab progress note Subjective: Nursing reports no acute overnight events. Patient without acute complaints. ROS: Denies chest pain, no shortness of breath, no chills, no abdominal pain, no vomiting. Exam/Review of Systems Vital Signs Vitals Vital Signs Date Time Temp Pulse Resp B/P Pulse Ox O2 Delivery O2 Flow Rate FiO2 10/03/16 20:22 97.6 78 18 123/57 95 10/01/16 14:52 Room Air Intake and Output 10/03/16 10/03/16 10/04/16 15:00 23:00 07:00 Intake Total 520 ml Output Total 300 ml 850 ml Balance 220 ml -850 ml Exam General: Awake, alert, no acute distress CV: Regular rate, s1s2 audible Lungs: Respirations nonlabored, no wheezing Abdomen: soft, nontender, +bowel sounds Extremities without cyanosis, no new swelling Neuro: Follows simple commands. No new focal weakness. No new sensory changes. Results Result Diagram: 10/03/16 0610 10/03/16 0610 Results 24 hrs Laboratory Tests Test 10/03/16 16:57 10/03/16 20:42 10/04/16 07:45 10/04/16 09:17 Bedside Glucose 132 108 117 164 Test 10/04/16 12:16 Bedside Glucose 178 Medications Medications Current Medications Acetaminophen (Tylenol Supp) 650 mg Q6H PRN [place] PAIN LEVEL 1-3 OR FEVER; Start 09/30/16 at 19:00 Acetaminophen (Tylenol Tab) 650 mg Q6H PRN PO PAIN LEVEL 1-3 OR FEVER; Start at 19:00 Aspirin (Halfprin) 81 mg DAILY PO Last administered on 10/04/16 09:19; Admin Dose 81 MG; Start 10/01/16 at 09:00 Atorvastatin Calcium (Lipitor) 80 mg DAILY@21 PO Last administered on 20:43; Admin Dose 80 MG; Start 09/30/16 at 21:00 Bisacodyl (Dulcolax) 5 mg DAILY PRN PO CONSTIPATION; Start 09/30/16 at 19:00 Bisacodyl (Dulcolax Supp) 10 mg DAILY PRN [place] CONSTIPATION; Start 09/30/16 at 19 :00 Clopidogrel Bisulfate (plaVIX) 75 mg DAILY PO Last administered on 10/04/16 09 :19; Admin Dose 75 MG; Start 10/01/16 at 09:00 Cyclosporine (Restasis) 1 drop Q12 BOTH EYES Last administered on 10/04/16 09: 26; Admin Dose 1 DROP; Start 09/30/16 at 21:00 Docusate Sodium (Colace) 100 mg Q12H PRN PO CONSTIPATION; Start 09/30/16 at 19: 00 Enoxaparin Sodium (Lovenox) 30 mg DAILY SC Last administered on 10/04/16 09:14 ; Admin Dose 30 MG; Start 10/01/16 at 09:00 Famotidine (Pepcid) 20 mg QHS PO Last administered on 10/03/16 20:44; Admin Dose 20 MG; Start 09/30/16 at 21:00 Gabapentin (Neurontin) 100 mg BID PO Last administered on 10/04/16 09:19; Admin Dose 100 MG; Start 09/30/16 at 21:00 Hydralazine HCl (Apresoline) 10 mg Q6H PRN IV ELEVATED BP SBP>160; Start at 19:00 Acetaminophen/ Hydrocodone Bitart ([place] (5/325)) 1 tab Q6H PRN PO MODERATE PAIN LEVEL 4-6 Last administered on 10/03/16 12:29; Admin Dose 1 TAB; Start at 19:00 Metoprolol Succinate (Toprol Xl) 50 mg BID PO Last administered on 10/04/16 09 :19; Admin Dose 50 MG; Start 09/30/16 at 21:00 Morphine Sulfate (morphine) 2 mg Q4H PRN IV SEVERE PAIN LEVEL 7-10; Start 09/30 at 19:00 Ondansetron HCl (Zofran Inj) 4 mg Q6H PRN IV NAUSEA AND/OR VOMITING; Start at 19:00 Solifenacin (Vesicare) 5 mg DAILY PO Last administered on 10/04/16 09:19; Admin Dose 5 MG; Start 10/01/16 at 09:00 Docusate Sodium (Colace) 100 mg BID PO Last administered on 10/04/16 09:19; Admin Dose 100 MG; Start 09/30/16 at 21:00 Senna (Senokot) 1 tab HS PO Last administered on 10/03/16 20:43; Admin Dose 1 TAB; Start 09/30/16 at 21:00 Magnesium Hydroxide (Milk Of Mag) 30 ml BID PRN PO CONSTIPATION; Start at 19:30 Lactulose (Enulose) 20 gm DAILY PRN PO CONSTIPATION Last administered on 18:38; Admin Dose 20 GM; Start 09/30/16 at 19:30 Miscellaneous Information 1 ea NOTE XX ; Start 09/30/16 at 19:30 Glucose (Glutose) 15 gm Q15M PRN PO DECREASED GLUCOSE; Start 09/30/16 at 19:30 Glucose (Glutose) 22.5 gm Q15M PRN PO DECREASED GLUCOSE; Start 09/30/16 at 19: 30 Dextrose (D50w Syringe) 25 ml Q15M PRN IV DECREASED GLUCOSE; Start 09/30/16 at 19:30 Dextrose (D50w Syringe) 50 ml Q15M PRN IV DECREASED GLUCOSE Last administered on 10/02/16 17:12; Admin Dose 50 ML; Start 09/30/16 at 19:30 Glucagon (Glucagen) 1 mg Q15M PRN IM DECREASED GLUCOSE; Start 09/30/16 at 19:30 Glucose (Glutose) 15 gm Q15M PRN BUCCAL DECREASED GLUCOSE; Start 09/30/16 at 19 :30 Insulin Glargine (Lantus) 52 unit DAILY SC Last administered on 10/04/16 09:18 ; Admin Dose 52 UNIT; Start 10/04/16 at 09:00 Patient Own Medication 1 ea DAILY BOTH EYES Last administered on 10/04/16 09: 18; Admin Dose 1 EA; Start 10/03/16 at 12:00 OUSMANE PISANO Oct 04, 2016 13:15
[2016-10-04 20:00] VITALS: BP 142/68; RESP 18
[2016-10-04] MEDS: SENNA TAB PO SCH (20:37)
[2016-10-04] MEDS: ATORVASTATIN 80 MG TAB PO SCH (20:37)
[2016-10-04] MEDS: FAMOTIDINE 20 MG TAB PO SCH (20:37)
[2016-10-05 07:30] VITALS: BP 144/67; RESP 18
[2016-10-05] MEDS: INSULIN ASPART [NOVOLOG] 3 ML PEN SC SCH ×7 (08:03→20:32)
[2016-10-05] MEDS: CYCLOSPORINE 0.05% OPH DROPERETTE BOTH EYES SCH ×2 (09:00→20:31)
[2016-10-05] MEDS: SOLIFENACIN 5 MG TAB PO SCH (09:15)
[2016-10-05] MEDS: ASPIRIN (EC) 81 MG TAB PO SCH (09:15)
[2016-10-05] MEDS: CLOPIDOGREL 75 MG TAB PO SCH (09:15)
[2016-10-05] MEDS: DOCUSATE SODIUM 100 MG CAP PO SCH ×2 (09:15→20:31)
[2016-10-05] MEDS: GABAPENTIN 100 MG CAP PO SCH ×2 (09:15→20:32)
[2016-10-05] MEDS: METOPROLOL (XL) 50 MG TAB PO SCH ×2 (09:16→20:32)
[2016-10-05] MEDS: ENOXAPARIN 30 MG/0.3 ML SYG SC SCH (09:16)
[2016-10-05] MEDS: INSULIN GLARGINE [LANtus] 3 ML PEN SC SCH (09:18)
[2016-10-05] MEDS: PAZEO BOTH EYES SCH (09:20)
[2016-10-05] MEDS: EYE BOTH EYES SCH (09:20)
--- NOTE | 2016-10-05 10:06 | PN ---
Date/Time of Note Date/Time of Note DATE: 10/05/16 TIME: 10:03 Assessment/Plan VTE Prophylaxis VTE Prophylaxis Intervention: LMWH Lines/Catheters IV Catheter Type (from Nrsg): Saline Lock Urinary Cath still in place: Yes Reason Cath still needed: other (indicate) Assessment/Plan Assessment/Plan 1. Toxic metabolic encephalopathy in the setting of UTI and uremia with acute on chronic kidney disease, with recent ischemic CVA with impaired mobility/gait/ ADLs/cognition, aphasia, and dysphagia. Continue PT/OT/ST. Upper body dressing improving, now mod assist. Max assist for lower body dressing. Continue modified diet per ST.Continue secondary stroke prevention. 2. Acute on chronic kidney disease. Continue to monitor renal function. Internal medicine managing. 3. Hypertension. Internal medicine medically managing. Continue to monitor blood pressures. 4. Diabetes mellitus type 2. Uncontrolled with hypoglycemic episodes. Internal medicine managing and adjusting insulin regimen, continue to monitor blood sugars. 5. Anemia. Continue to monitor hemoglobin/hematocrit, improving on last labs. 6. Old L1 compression fracture. Pain controlled. Subjective 24 Hr Interval Summary Free Text/Dictation Rehab progress note Subjective: No acute complaints. ROS: Denies headache, no dizziness, no chest pain, no shortness of breath, no abdominal pain, no nausea or vomiting. Exam/Review of Systems Vital Signs Vitals Vital Signs Date Time Temp Pulse Resp B/P Pulse Ox O2 Delivery O2 Flow Rate FiO2 10/04/16 20:00 97.8 79 18 142/68 95 10/01/16 14:52 Room Air Intake and Output 10/04/16 10/04/16 10/05/16 15:00 23:00 07:00 Intake Total 720 ml 350 ml Output Total 500 ml Balance 220 ml 350 ml Exam General: Awake, alert, no acute distress CV: Regular rate, s1s2 Lungs: Respirations nonlabored, no wheezing Abdomen/: Abdomen soft, nontender. Lassiter catheter in place. Extremities without cyanosis or edema Neuro: Strength overall improving. Follows simple commands. Results Result Diagram: 10/03/16 0610 10/03/16 0610 Results 24 hrs Laboratory Tests Test 10/04/16 12:16 10/04/16 17:30 10/04/16 20:43 10/04/16 21:24 Bedside Glucose 178 221 H 50 L 76 Test 10/04/16 22:23 10/05/16 07:49 10/05/16 09:14 Bedside Glucose 100 170 178 Medications Medications Current Medications Acetaminophen (Tylenol Supp) 650 mg Q6H PRN [place] PAIN LEVEL 1-3 OR FEVER; Start 09/30/16 at 19:00 Acetaminophen (Tylenol Tab) 650 mg Q6H PRN PO PAIN LEVEL 1-3 OR FEVER; Start at 19:00 Aspirin (Halfprin) 81 mg DAILY PO Last administered on 10/05/16 09:15; Admin Dose 81 MG; Start 10/01/16 at 09:00 Atorvastatin Calcium (Lipitor) 80 mg DAILY@21 PO Last administered on 20:37; Admin Dose 80 MG; Start 09/30/16 at 21:00 Bisacodyl (Dulcolax) 5 mg DAILY PRN PO CONSTIPATION; Start 09/30/16 at 19:00 Bisacodyl (Dulcolax Supp) 10 mg DAILY PRN [place] CONSTIPATION; Start 09/30/16 at 19 :00 Clopidogrel Bisulfate (plaVIX) 75 mg DAILY PO Last administered on 10/05/16 09 :15; Admin Dose 75 MG; Start 10/01/16 at 09:00 Cyclosporine (Restasis) 1 drop Q12 BOTH EYES Last administered on 10/04/16 09: 26; Admin Dose 1 DROP; Start 09/30/16 at 21:00 Docusate Sodium (Colace) 100 mg Q12H PRN PO CONSTIPATION; Start 09/30/16 at 19: 00 Enoxaparin Sodium (Lovenox) 30 mg DAILY SC Last administered on 10/05/16 09:16 ; Admin Dose 30 MG; Start 10/01/16 at 09:00 Famotidine (Pepcid) 20 mg QHS PO Last administered on 10/04/16 20:37; Admin Dose 20 MG; Start 09/30/16 at 21:00 Gabapentin (Neurontin) 100 mg BID PO Last administered on 10/05/16 09:15; Admin Dose 100 MG; Start 09/30/16 at 21:00 Hydralazine HCl (Apresoline) 10 mg Q6H PRN IV ELEVATED BP SBP>160; Start at 19:00 Acetaminophen/ Hydrocodone Bitart ([place] (5/325)) 1 tab Q6H PRN PO MODERATE PAIN LEVEL 4-6 Last administered on 10/03/16 12:29; Admin Dose 1 TAB; Start at 19:00 Metoprolol Succinate (Toprol Xl) 50 mg BID PO Last administered on 10/05/16 09 :16; Admin Dose 50 MG; Start 09/30/16 at 21:00 Morphine Sulfate (morphine) 2 mg Q4H PRN IV SEVERE PAIN LEVEL 7-10; Start 09/30 at 19:00 Ondansetron HCl (Zofran Inj) 4 mg Q6H PRN IV NAUSEA AND/OR VOMITING; Start at 19:00 Solifenacin (Vesicare) 5 mg DAILY PO Last administered on 10/05/16 09:15; Admin Dose 5 MG; Start 10/01/16 at 09:00 Docusate Sodium (Colace) 100 mg BID PO Last administered on 10/05/16 09:15; Admin Dose 100 MG; Start 09/30/16 at 21:00 Senna (Senokot) 1 tab HS PO Last administered on 10/04/16 20:37; Admin Dose 1 TAB; Start 09/30/16 at 21:00 Magnesium Hydroxide (Milk Of Mag) 30 ml BID PRN PO CONSTIPATION; Start at 19:30 Lactulose (Enulose) 20 gm DAILY PRN PO CONSTIPATION Last administered on 18:38; Admin Dose 20 GM; Start 09/30/16 at 19:30 Miscellaneous Information 1 ea NOTE XX ; Start 09/30/16 at 19:30 Glucose (Glutose) 15 gm Q15M PRN PO DECREASED GLUCOSE; Start 09/30/16 at 19:30 Glucose (Glutose) 22.5 gm Q15M PRN PO DECREASED GLUCOSE; Start 09/30/16 at 19: 30 Dextrose (D50w Syringe) 25 ml Q15M PRN IV DECREASED GLUCOSE; Start 09/30/16 at 19:30 Dextrose (D50w Syringe) 50 ml Q15M PRN IV DECREASED GLUCOSE Last administered on 10/02/16 17:12; Admin Dose 50 ML; Start 09/30/16 at 19:30 Glucagon (Glucagen) 1 mg Q15M PRN IM DECREASED GLUCOSE; Start 09/30/16 at 19:30 Glucose (Glutose) 15 gm Q15M PRN BUCCAL DECREASED GLUCOSE; Start 09/30/16 at 19 :30 Insulin Glargine (Lantus) 52 unit DAILY SC Last administered on 10/05/16 09:18 ; Admin Dose 52 UNIT; Start 10/04/16 at 09:00 Patient Own Medication 1 ea DAILY BOTH EYES Last administered on 10/05/16 09: 20; Admin Dose 1 EA; Start 10/03/16 at 12:00 OUSMANE PISANO Oct 05, 2016 10:06
[2016-10-05] MEDS: ATORVASTATIN 80 MG TAB PO SCH (20:31)
[2016-10-05] MEDS: FAMOTIDINE 20 MG TAB PO SCH (20:32)
[2016-10-05] MEDS: SENNA TAB PO SCH (20:32)
[2016-10-05 20:43] VITALS: BP 142/66; RESP 18
[2016-10-06 07:30] VITALS: BP 143/63; RESP 18
[2016-10-06] MEDS: SOLIFENACIN 5 MG TAB PO SCH (08:41)
[2016-10-06] MEDS: ASPIRIN (EC) 81 MG TAB PO SCH (08:41)
[2016-10-06] MEDS: CLOPIDOGREL 75 MG TAB PO SCH (08:41)
[2016-10-06] MEDS: METOPROLOL (XL) 50 MG TAB PO SCH ×2 (08:41→20:31)
[2016-10-06] MEDS: PAZEO BOTH EYES SCH (08:42)
[2016-10-06] MEDS: BISACODYL (EC) 5 MG TAB PO PRN (08:42)
[2016-10-06] MEDS: EYE BOTH EYES SCH (08:42)
[2016-10-06] MEDS: DOCUSATE SODIUM 100 MG CAP PO SCH ×2 (08:42→20:31)
[2016-10-06] MEDS: GABAPENTIN 100 MG CAP PO SCH ×2 (08:42→20:32)
[2016-10-06] MEDS: CYCLOSPORINE 0.05% OPH DROPERETTE BOTH EYES SCH ×2 (08:42→20:31)
[2016-10-06] MEDS: ENOXAPARIN 30 MG/0.3 ML SYG SC SCH (08:44)
[2016-10-06] MEDS: INSULIN GLARGINE [LANtus] 3 ML PEN SC SCH (08:45)
[2016-10-06] MEDS: INSULIN ASPART [NOVOLOG] 3 ML PEN SC SCH ×7 (08:46→20:32)
[2016-10-06] MEDS: LACTULOSE 30ML CUP PO PRN (09:06)
--- NOTE | 2016-10-06 12:20 | CONS ---
Date/Time of Note Date/Time of Note DATE: 10/06/16 TIME: 12:20 Consult Date/Type/Reason Admit Date/Time Sep 30, 2016 at 17:35 Initial Consult Date Type of Consultation: internal medicine Objective Vital Signs Date Time Temp Pulse Resp B/P Pulse Ox O2 Delivery O2 Flow Rate FiO2 10/05/16 20:43 97.9 77 18 142/66 93 Intake and Output 10/05/16 10/05/16 10/06/16 15:00 23:00 07:00 Intake Total 460 ml Output Total 900 ml 350 ml 300 ml Balance -900 ml 110 ml -300 ml INTERDISCIPLINARY TEAM CONFERENCE BOWEL- incont BLADDER-Lassiter due to retention SKIN- intact OT- DRESSING-max BATHING-max TOILETING-max PT- BED MOBILITY-max TRANSFERS-max W.C. MOBILITY-max SPEECH- COGNITION-max DYPHAGIA A/P- Interdisciplinary team conference held today. Please see interdisciplinary sheet. Working toward d.c. on 10/20 with post discharge follow up of physical therapy, occupational therapy. Results/Medications Result Diagram: 10/03/16 0610 10/03/16 0610 Results 24 hrs Laboratory Tests Test 10/05/16 16:55 10/05/16 20:29 10/06/16 07:51 10/06/16 12:04 Bedside Glucose 103 111 257 H 335 H Medications Current Medications Acetaminophen (Tylenol Supp) 650 mg Q6H PRN [place] PAIN LEVEL 1-3 OR FEVER; Start 09/30/16 at 19:00 Acetaminophen (Tylenol Tab) 650 mg Q6H PRN PO PAIN LEVEL 1-3 OR FEVER; Start at 19:00 Aspirin (Halfprin) 81 mg DAILY PO Last administered on 10/06/16 08:41; Admin Dose 81 MG; Start 10/01/16 at 09:00 Atorvastatin Calcium (Lipitor) 80 mg DAILY@21 PO Last administered on 20:31; Admin Dose 80 MG; Start 09/30/16 at 21:00 Bisacodyl (Dulcolax) 5 mg DAILY PRN PO CONSTIPATION Last administered on 08:42; Admin Dose 5 MG; Start 09/30/16 at 19:00 Bisacodyl (Dulcolax Supp) 10 mg DAILY PRN [place] CONSTIPATION; Start 09/30/16 at 19 :00 Clopidogrel Bisulfate (plaVIX) 75 mg DAILY PO Last administered on 10/06/16 08: 41; Admin Dose 75 MG; Start 10/01/16 at 09:00 Cyclosporine (Restasis) 1 drop Q12 BOTH EYES Last administered on 10/06/16 08: 42; Admin Dose 1 DROP; Start 09/30/16 at 21:00 Docusate Sodium (Colace) 100 mg Q12H PRN PO CONSTIPATION Last administered on 08:42; Admin Dose 100 MG; Start 09/30/16 at 19:00 Enoxaparin Sodium (Lovenox) 30 mg DAILY SC Last administered on 10/06/16 08:44 ; Admin Dose 30 MG; Start 10/01/16 at 09:00 Famotidine (Pepcid) 20 mg QHS PO Last administered on 10/05/16 20:32; Admin Dose 20 MG; Start 09/30/16 at 21:00 Gabapentin (Neurontin) 100 mg BID PO Last administered on 10/06/16 08:42; Admin Dose 100 MG; Start 09/30/16 at 21:00 Hydralazine HCl (Apresoline) 10 mg Q6H PRN IV ELEVATED BP SBP>160; Start at 19:00 Acetaminophen/ Hydrocodone Bitart ([place] (5/325)) 1 tab Q6H PRN PO MODERATE PAIN LEVEL 4-6 Last administered on 10/03/16 12:29; Admin Dose 1 TAB; Start at 19:00 Metoprolol Succinate (Toprol Xl) 50 mg BID PO Last administered on 10/06/16 08: 41; Admin Dose 50 MG; Start 09/30/16 at 21:00 Morphine Sulfate (morphine) 2 mg Q4H PRN IV SEVERE PAIN LEVEL 7-10; Start 09/30 at 19:00 Ondansetron HCl (Zofran Inj) 4 mg Q6H PRN IV NAUSEA AND/OR VOMITING; Start at 19:00 Solifenacin (Vesicare) 5 mg DAILY PO Last administered on 10/06/16 08:41; Admin Dose 5 MG; Start 10/01/16 at 09:00 Docusate Sodium (Colace) 100 mg BID PO Last administered on 10/06/16 08:42; Admin Dose 100 MG; Start 09/30/16 at 21:00 Senna (Senokot) 1 tab HS PO Last administered on 10/05/16 20:32; Admin Dose 1 TAB; Start 09/30/16 at 21:00 Magnesium Hydroxide (Milk Of Mag) 30 ml BID PRN PO CONSTIPATION; Start at 19:30 Lactulose (Enulose) 20 gm DAILY PRN PO CONSTIPATION Last administered on 09:06; Admin Dose 20 GM; Start 09/30/16 at 19:30 Miscellaneous Information 1 ea NOTE XX ; Start 09/30/16 at 19:30 Glucose (Glutose) 15 gm Q15M PRN PO DECREASED GLUCOSE; Start 09/30/16 at 19:30 Glucose (Glutose) 22.5 gm Q15M PRN PO DECREASED GLUCOSE; Start 09/30/16 at 19: 30 Dextrose (D50w Syringe) 25 ml Q15M PRN IV DECREASED GLUCOSE; Start 09/30/16 at 19:30 Dextrose (D50w Syringe) 50 ml Q15M PRN IV DECREASED GLUCOSE Last administered on 10/02/16 17:12; Admin Dose 50 ML; Start 09/30/16 at 19:30 Glucagon (Glucagen) 1 mg Q15M PRN IM DECREASED GLUCOSE; Start 09/30/16 at 19:30 Glucose (Glutose) 15 gm Q15M PRN BUCCAL DECREASED GLUCOSE; Start 09/30/16 at 19 :30 Insulin Glargine (Lantus) 52 unit DAILY SC Last administered on 10/06/16 08:45 ; Admin Dose 52 UNIT; Start 10/04/16 at 09:00 Patient Own Medication 1 ea DAILY BOTH EYES Last administered on 10/06/16 08:42 ; Admin Dose 1 EA; Start 10/03/16 at 12:00 SHADY FREEMAN MD October 06, 2016 12:20 SHADY FREEMAN MD October 06, 2016 12:20
--- NOTE | 2016-10-06 15:27 | CONS ---
Date/Time of Note Date/Time of Note DATE: 10/06/16 TIME: 15:25 Consult Date/Type/Reason Admit Date/Time Sep 30, 2016 at 17:35 Type of Consultation: internal medicine Subjective Patient doing well this morning sitting up in chair in no respiratory distress blood sugars control remains erratic now hyperglycemic Objective Vital Signs Date Time Temp Pulse Resp B/P Pulse Ox O2 Delivery O2 Flow Rate FiO2 10/06/16 07:30 98.2 78 18 143/63 100 Intake and Output 10/05/16 10/05/16 10/06/16 15:00 23:00 07:00 Intake Total 460 ml Output Total 900 ml 350 ml 300 ml Balance -900 ml 110 ml -300 ml Exam PHYSICAL EXAMINATION: GENERAL: Elderly-appearing lady, comfortable at rest, NECK: Supple. No JVD or lymphadenopathy. CARDIAC: S1, S2, no added sounds or murmurs. CHEST: Diminished air entry bilaterally. ABDOMEN: Soft, nontender. No guarding or rebound. EXTREMITIES: No cyanosis, clubbing, 1+ edema. NEUROLOGIC: Generalized weakness. Results/Medications Result Diagram: 10/03/16 0610 10/03/16 0610 Results 24 hrs Laboratory Tests Test 10/05/16 16:55 10/05/16 20:29 10/06/16 07:51 10/06/16 12:04 Bedside Glucose 103 111 257 H 335 H Medications Current Medications Acetaminophen (Tylenol Supp) 650 mg Q6H PRN [place] PAIN LEVEL 1-3 OR FEVER; Start 09/30/16 at 19:00 Acetaminophen (Tylenol Tab) 650 mg Q6H PRN [place] PAIN LEVEL 1-3 OR FEVER; Start at 19:00 Aspirin (Halfprin) 81 mg DAILY PO Last administered on 10/06/16 08:41; Admin Dose 81 MG; Start 10/01/16 at 09:00 Atorvastatin Calcium (Lipitor) 80 mg DAILY@21 PO Last administered on 20:31; Admin Dose 80 MG; Start 09/30/16 at 21:00 Bisacodyl (Dulcolax) 5 mg DAILY PRN PO CONSTIPATION Last administered on 08:42; Admin Dose 5 MG; Start 09/30/16 at 19:00 Bisacodyl (Dulcolax Supp) 10 mg DAILY PRN [place] CONSTIPATION; Start 09/30/16 at 19 :00 Clopidogrel Bisulfate (plaVIX) 75 mg DAILY PO Last administered on 10/06/16 08: 41; Admin Dose 75 MG; Start 10/01/16 at 09:00 Cyclosporine (Restasis) 1 drop Q12 BOTH EYES Last administered on 10/06/16 08: 42; Admin Dose 1 DROP; Start 09/30/16 at 21:00 Docusate Sodium (Colace) 100 mg Q12H PRN PO CONSTIPATION Last administered on 08:42; Admin Dose 100 MG; Start 09/30/16 at 19:00 Enoxaparin Sodium (Lovenox) 30 mg DAILY SC Last administered on 10/06/16 08:44 ; Admin Dose 30 MG; Start 10/01/16 at 09:00 Famotidine (Pepcid) 20 mg QHS PO Last administered on 10/05/16 20:32; Admin Dose 20 MG; Start 09/30/16 at 21:00 Gabapentin (Neurontin) 100 mg BID PO Last administered on 10/06/16 08:42; Admin Dose 100 MG; Start 09/30/16 at 21:00 Hydralazine HCl (Apresoline) 10 mg Q6H PRN IV ELEVATED BP SBP>160; Start at 19:00 Acetaminophen/ Hydrocodone Bitart ([place] (5/325)) 1 tab Q6H PRN PO MODERATE PAIN LEVEL 4-6 Last administered on 10/03/16 12:29; Admin Dose 1 TAB; Start at 19:00 Metoprolol Succinate (Toprol Xl) 50 mg BID PO Last administered on 10/06/16 08: 41; Admin Dose 50 MG; Start 09/30/16 at 21:00 Morphine Sulfate (morphine) 2 mg Q4H PRN IV SEVERE PAIN LEVEL 7-10; Start 09/30 at 19:00 Ondansetron HCl (Zofran Inj) 4 mg Q6H PRN IV NAUSEA AND/OR VOMITING; Start at 19:00 Solifenacin (Vesicare) 5 mg DAILY PO Last administered on 10/06/16 08:41; Admin Dose 5 MG; Start 10/01/16 at 09:00 Docusate Sodium (Colace) 100 mg BID PO Last administered on 10/06/16 08:42; Admin Dose 100 MG; Start 09/30/16 at 21:00 Senna (Senokot) 1 tab HS PO Last administered on 10/05/16 20:32; Admin Dose 1 TAB; Start 09/30/16 at 21:00 Magnesium Hydroxide (Milk Of Mag) 30 ml BID PRN PO CONSTIPATION; Start at 19:30 Lactulose (Enulose) 20 gm DAILY PRN PO CONSTIPATION Last administered on 09:06; Admin Dose 20 GM; Start 09/30/16 at 19:30 Miscellaneous Information 1 ea NOTE XX ; Start 09/30/16 at 19:30 Glucose (Glutose) 15 gm Q15M PRN PO DECREASED GLUCOSE; Start 09/30/16 at 19:30 Glucose (Glutose) 22.5 gm Q15M PRN PO DECREASED GLUCOSE; Start 09/30/16 at 19: 30 Dextrose (D50w Syringe) 25 ml Q15M PRN IV DECREASED GLUCOSE; Start 09/30/16 at 19:30 Dextrose (D50w Syringe) 50 ml Q15M PRN IV DECREASED GLUCOSE Last administered on 10/02/16 17:12; Admin Dose 50 ML; Start 09/30/16 at 19:30 Glucagon (Glucagen) 1 mg Q15M PRN IM DECREASED GLUCOSE; Start 09/30/16 at 19:30 Glucose (Glutose) 15 gm Q15M PRN BUCCAL DECREASED GLUCOSE; Start 09/30/16 at 19 :30 Insulin Glargine (Lantus) 52 unit DAILY SC Last administered on 10/06/16 08:45 ; Admin Dose 52 UNIT; Start 10/04/16 at 09:00 Patient Own Medication 1 ea DAILY BOTH EYES Last administered on 10/06/16 08:42 ; Admin Dose 1 EA; Start 10/03/16 at 12:00 Assessment/Plan Chief Complaint/Hosp Course IMPRESSION: 1. Recent cerebrovascular accident. 2. Resolved, poorly controlled encephalopathy. 3. L1 compression fractures, likely cause of her low back pain. 4. History of insulin-dependent diabetes poorly controlled 5. Essential hypertension. PLAN: 1. The patient is to continue with current medications including Lovenox and Plavix. 2. Endocrinology consult 3. Continue antihypertensives. 4. DVT and GI prophylaxis. 5. Physical therapy and speech therapy recommendations. Problems: SOCORRO GARBER MD, [facility] October 06, 2016 15:27
--- NOTE | 2016-10-06 18:57 | PN ---
DATE: 10/04/2016 MEDICINE PROGRESS NOTE SUBJECTIVE: Mr. Kemp's condition is stable. The patient is denying any shortness of breath, c hest pain, abdominal pain, nausea, vomiting. The patient is about to get physical therapy and was a mbulated in the hallway. PHYSICAL EXAMINATION: GENERAL: Elderly awake, alert, currently in no distress. VITAL SIGNS: Temperature 98.2 degrees Fahrenheit, respiratory rate is 18 per minute, blood pressure is 158/68, heart rate 74 per minute, O2 sat 97% on room air. NECK: Supple. No JVD, no lymphadenopathy, midline trachea, no thyromegaly. Pharynx clear. No nec k bruits. LUNGS: Clear to auscultation. HEART: S1, S2 audible, no murmurs, regular rhythm. ABDOMEN: Soft, nontender, nondistended. No organomegaly. Bowel sounds audible. EXTREMITIES: No peripheral edema. CENTRAL NERVOUS SYSTEM: The patient is awake, alert. Has intact cranial nerves. No focal motor de ficit, but the patient does have generalized weakness. MEDICATIONS: Reviewed. Currently, the patient is on: 1. Acetaminophen on a p.r.n. basis. 2. Aspirin 81 mg daily. 3. Lipitor. 4. Plavix. 5. Cyclosporine eyedrops. 6. Colace. 7. Lovenox. 8. Pepcid. 9. Neurontin. 10. Hydrocodone. 11. Insulin. 12. Lactulose. 13. Morphine. All doses were reviewed. ASSESSMENT: 1. The patient admitted for recent cerebrovascular accident. 2. Encephalopathy with interval resolution. 3. History of L1 compression fracture. 4. History of diabetes. 5. Hypertension. PLAN: Continue current supportive care. The patient responding well to current treatment regimen. Dictated By: KERON ALLEN/NTS Conf#: [id number] DID#: [id number]
[2016-10-06 19:51] VITALS: BP 140/67; RESP 18
[2016-10-06] MEDS: SENNA TAB PO SCH (20:31)
[2016-10-06] MEDS: ATORVASTATIN 80 MG TAB PO SCH (20:32)
[2016-10-06] MEDS: FAMOTIDINE 20 MG TAB PO SCH (20:32)
[2016-10-07] MEDS ORDERED: metFORMIN 500 MG TAB PO SCH (07:35)
[2016-10-07 08:08] VITALS: BP 135/63; RESP 18
[2016-10-07] MEDS: INSULIN ASPART [NOVOLOG] 3 ML PEN SC SCH ×7 (08:52→21:00)
[2016-10-07] MEDS: ENOXAPARIN 30 MG/0.3 ML SYG SC SCH (08:54)
[2016-10-07] MEDS: INSULIN GLARGINE [LANtus] 3 ML PEN SC SCH (08:55)
[2016-10-07] MEDS: SOLIFENACIN 5 MG TAB PO SCH (08:56)
[2016-10-07] MEDS: DOCUSATE SODIUM 100 MG CAP PO SCH ×3 (08:56→21:48)
[2016-10-07] MEDS: CLOPIDOGREL 75 MG TAB PO SCH (08:56)
[2016-10-07] MEDS: GABAPENTIN 100 MG CAP PO SCH ×3 (08:57→21:48)
[2016-10-07] MEDS: METOPROLOL (XL) 50 MG TAB PO SCH ×3 (08:57→21:49)
[2016-10-07] MEDS: LACTULOSE 30ML CUP PO PRN (08:57)
[2016-10-07] MEDS: LINAGLIPTIN 5 MG TABLET PO SCH (08:57)
[2016-10-07] MEDS: BISACODYL (EC) 5 MG TAB PO PRN (08:57)
[2016-10-07] MEDS: ASPIRIN (EC) 81 MG TAB PO SCH (08:57)
[2016-10-07] MEDS: PAZEO BOTH EYES SCH (08:58)
[2016-10-07] MEDS: EYE BOTH EYES SCH (08:58)
[2016-10-07] MEDS: CYCLOSPORINE 0.05% OPH DROPERETTE BOTH EYES SCH ×3 (09:00→21:49)
[2016-10-07] MEDS ORDERED: NA PHOSPHATE/BIPHOS 133 ML ENEMA PR PRN (10:00)
[2016-10-07] MEDS ORDERED: MAGNESIUM CITRATE 300 ML BTL PO PRN (11:00)
[2016-10-07] MEDS ORDERED: POLYETHYLENE GLYCOL 17 GM PACKET PO PRN (11:00)
--- NOTE | 2016-10-07 12:09 | CONS ---
Date/Time of Note Date/Time of Note DATE: 10/07/16 TIME: 12:08 Consult Date/Type/Reason Admit Date/Time Sep 30, 2016 at 17:35 Type of Consultation: internal medicine Subjective Up for activities Objective pulm-cta max assist transfer Vital Signs Date Time Temp Pulse Resp B/P Pulse Ox O2 Delivery O2 Flow Rate FiO2 10/07/16 08:08 98.4 74 18 135/63 94 Intake and Output 10/06/16 10/06/16 10/07/16 15:00 23:00 07:00 Intake Total 640 ml 850 ml Output Total 500 ml Balance 140 ml 850 ml Results/Medications Result Diagram: 10/03/16 0610 10/03/16 0610 Results 24 hrs Laboratory Tests Test 10/06/16 17:39 10/06/16 20:14 10/07/16 07:56 Bedside Glucose 114 90 174 Medications Current Medications Acetaminophen (Tylenol Supp) 650 mg Q6H PRN [place] PAIN LEVEL 1-3 OR FEVER; Start 09/30/16 at 19:00 Acetaminophen (Tylenol Tab) 650 mg Q6H PRN PO PAIN LEVEL 1-3 OR FEVER; Start at 19:00 Aspirin (Halfprin) 81 mg DAILY PO Last administered on 10/07/16 08:57; Admin Dose 81 MG; Start 10/01/16 at 09:00 Atorvastatin Calcium (Lipitor) 80 mg DAILY@21 PO Last administered on 10/06/16 20:32; Admin Dose 80 MG; Start 09/30/16 at 21:00 Bisacodyl (Dulcolax) 5 mg DAILY PRN PO CONSTIPATION Last administered on 08:57; Admin Dose 5 MG; Start 09/30/16 at 19:00 Bisacodyl (Dulcolax Supp) 10 mg DAILY PRN [place] CONSTIPATION Last administered on 10/06/16 20:32; Admin Dose 10 MG; Start 09/30/16 at 19:00 Clopidogrel Bisulfate (plaVIX) 75 mg DAILY PO Last administered on 10/07/16 08: 56; Admin Dose 75 MG; Start 10/01/16 at 09:00 Cyclosporine (Restasis) 1 drop Q12 BOTH EYES Last administered on 10/06/16 20: 31; Admin Dose 1 DROP; Start 09/30/16 at 21:00 Docusate Sodium (Colace) 100 mg Q12H PRN PO CONSTIPATION Last administered on 08:42; Admin Dose 100 MG; Start 09/30/16 at 19:00 Enoxaparin Sodium (Lovenox) 30 mg DAILY SC Last administered on 10/07/16 08:54 ; Admin Dose 30 MG; Start 10/01/16 at 09:00 Famotidine (Pepcid) 20 mg QHS PO Last administered on 10/06/16 20:32; Admin Dose 20 MG; Start 09/30/16 at 21:00 Gabapentin (Neurontin) 100 mg BID PO Last administered on 10/07/16 08:57; Admin Dose 100 MG; Start 09/30/16 at 21:00 Hydralazine HCl (Apresoline) 10 mg Q6H PRN IV ELEVATED BP SBP>160; Start at 19:00 Acetaminophen/ Hydrocodone Bitart ([place] (5/325)) 1 tab Q6H PRN PO MODERATE PAIN LEVEL 4-6 Last administered on 10/03/16 12:29; Admin Dose 1 TAB; Start at 19:00 Metoprolol Succinate (Toprol Xl) 50 mg BID PO Last administered on 10/07/16 08: 57; Admin Dose 50 MG; Start 09/30/16 at 21:00 Morphine Sulfate (morphine) 2 mg Q4H PRN IV SEVERE PAIN LEVEL 7-10; Start 09/30 at 19:00 Ondansetron HCl (Zofran Inj) 4 mg Q6H PRN IV NAUSEA AND/OR VOMITING; Start at 19:00 Solifenacin (Vesicare) 5 mg DAILY PO Last administered on 10/07/16 08:56; Admin Dose 5 MG; Start 10/01/16 at 09:00 Docusate Sodium (Colace) 100 mg BID PO Last administered on 10/07/16 08:56; Admin Dose 100 MG; Start 09/30/16 at 21:00 Senna (Senokot) 1 tab HS PO Last administered on 10/06/16 20:31; Admin Dose 1 TAB; Start 09/30/16 at 21:00 Magnesium Hydroxide (Milk Of Mag) 30 ml BID PRN PO CONSTIPATION; Start at 19:30 Lactulose (Enulose) 20 gm DAILY PRN PO CONSTIPATION Last administered on 08:57; Admin Dose 20 GM; Start 09/30/16 at 19:30 Miscellaneous Information 1 ea NOTE XX ; Start 09/30/16 at 19:30 Glucose (Glutose) 15 gm Q15M PRN PO DECREASED GLUCOSE; Start 09/30/16 at 19:30 Glucose (Glutose) 22.5 gm Q15M PRN PO DECREASED GLUCOSE; Start 09/30/16 at 19: 30 Dextrose (D50w Syringe) 25 ml Q15M PRN IV DECREASED GLUCOSE; Start 09/30/16 at 19:30 Dextrose (D50w Syringe) 50 ml Q15M PRN IV DECREASED GLUCOSE Last administered on 10/02/16 17:12; Admin Dose 50 ML; Start 09/30/16 at 19:30 Glucagon (Glucagen) 1 mg Q15M PRN IM DECREASED GLUCOSE; Start 09/30/16 at 19:30 Glucose (Glutose) 15 gm Q15M PRN BUCCAL DECREASED GLUCOSE; Start 09/30/16 at 19 :30 Patient Own Medication 1 ea DAILY BOTH EYES Last administered on 10/07/16 08:58 ; Admin Dose 1 EA; Start 10/03/16 at 12:00 Insulin Glargine (Lantus) 38 unit DAILY SC Last administered on 10/07/16 08:55 ; Admin Dose 38 UNIT; Start 10/07/16 at 09:00 Linagliptin (Tradjenta) 5 mg DAILY PO Last administered on 10/07/16 08:57; Admin Dose 5 MG; Start 10/07/16 at 09:00 Sodium Biphosphate/ Sodium Phosphate (Fleet Enema) 133 ml DAILY PRN [place] CONSTIPATION; Start 10/07/16 at 10:00 Magnesium Citrate (Citroma) 300 ml ONCE PRN PO CONSTIPATION; Start 10/07/16 at 11:00; Stop 10/07/16 at 23:00 Polyethylene Glycol (Miralax) 17 gm DAILY PRN PO CONSTIPATION; Start 10/07/16 at 11:00 Assessment/Plan Additional Assessment/Plan Rehab- Toxic Met Enceph/recent CVA Continue rehab program Dysphagia- speech therapy Renal- A/CKD; uremia/UTI HTN DM2 hypothyroidism L1 comp fx SHADY FREEMAN MD October 07, 2016 12:08
--- NOTE | 2016-10-07 13:32 | CONS ---
Date/Time of Note Date/Time of Note DATE: 10/07/16 TIME: 13:22 Assessment/Plan Assessment/Plan Problems: (1) Diabetes mellitus type 2 in obese Status: Chronic Comment: BG values erratic likely due to basal-heavy basal-bolus regimen. Will decrease basal dose and increase bolus doses. Also will add linagliptin 5 mg daily. Decrease lantus from 52 to 38 daily and increase Novolog from 14 to 18 qac. Will follow and reeval daily Consultation Date/Type/Reason Admit Date/Time Sep 30, 2016 at 17:35 Date of Consultation: October 07, 2016 Type of Consultation: Endocrinology Reason for Consultation T2DM out of control Referring Provider: SOCORRO GARBER MD, [facility] Hx of Present Illness Pt. in [facility] until 5 weeks ago when she developed new onset of weakness on the R side. Brought to [facility] ER and diagnosed w/ ischemic CVA. Was able to go home but subsequently became unable to ambulate and developed unresponsiveness. Brought back to [facility]. Diagnosed w/ metabolic encephalopathy. Transferred to SNF but while there again developed AMS and transferred back to [facility] where she was diagnosed w/ UTI. Now in ARU. BG erratic w/ occ. highs and lows. Endo consulted. Constitutional: no complaints Eyes: no complaints ENT: no complaints Respiratory: no complaints Cardiovascular: no complaints Gastrointestinal: no complaints Genitourinary: no complaints Musculoskeletal: no complaints Neurologic: headache Past Medical History Medical History: diabetes, high cholesterol, hypertension, other (stroke, non- specific thyroid disease, now in remission) Past Surgical History Past Surgical Hx: appendectomy, other (exploratory surgery to evaluate uterine mass (found to be twins and closed)) Family History Significant Family History: no pertinent family hx Social History b. 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, , 3 children Alcohol Use: none Smoking Status: Never smoker Drug Use: none Exam/Review of Systems Vital Signs Vitals VS - Last 72 Hours, by Label Date Time Temp Pulse Resp B/P Pulse Ox O2 Delivery O2 Flow Rate FiO2 10/07/16 08:08 98.4 74 18 135/63 94 10/06/16 19:51 98.5 75 18 140/67 98 10/06/16 07:30 98.2 78 18 143/63 100 10/05/16 20:43 97.9 77 18 142/66 93 10/05/16 07:30 97.8 68 18 144/67 98 10/04/16 20:00 97.8 79 18 142/68 95 Vital Signs Date Time Temp Pulse Resp B/P Pulse Ox O2 Delivery O2 Flow Rate FiO2 10/07/16 08:08 98.4 74 18 135/63 94 Intake and Output 10/06/16 10/06/16 10/07/16 15:00 23:00 07:00 Intake Total 640 ml 850 ml Output Total 500 ml Balance 140 ml 850 ml Exam Constitutional: alert, obese, oriented Psych: nl mood/affect, no complaints Eyes: EOMI, PERRL, nl conjunctiva, nl lids, nl sclera ENMT: mucosa pink and moist, nl external ears & nose Neck: non-tender, supple, No bruits, No masses, No thyromegaly Respiratory: clear to auscultation, normal air movement Cardiovascular: nl pulses, regular rate and rhythm, No edema, No murmurs/extra sounds, No rub Gastrointestinal: bowel sounds, nl liver, spleen, non-tender, soft, No mass, No rebound or guarding Musculoskeletal: nl extremities to inspection Extremities: normal pulses, No clubbing, No cyanosis, No edema 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: 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 intact, nl mental status, nl speech, nl strength Additional Comments Bedside Glucose - 72 Hours Test 10/04/16 17:30 10/04/16 20:43 10/04/16 21:24 10/04/16 22:23 Bedside Glucose 221mg/dL (70-220) H 50mg/dL (70-220) L 76mg/dL (70-220) 100mg/dL (70-220) Test 10/05/16 07:49 10/05/16 09:14 10/05/16 12:07 10/05/16 16:55 Bedside Glucose 170mg/dL (70-220) 178mg/dL (70-220) 136mg/dL (70-220) 103mg/dL (70-220) Test 10/05/16 20:29 10/06/16 07:51 10/06/16 12:04 10/06/16 17:39 Bedside Glucose 111mg/dL (70-220) 257mg/dL (70-220) H 335mg/dL (70-220) H 114mg/dL (70-220) Test 10/06/16 20:14 10/07/16 07:56 10/07/16 12:11 Bedside Glucose 90mg/dL (70-220) 174mg/dL (70-220) 142mg/dL (70-220) Results Result Diagram: 10/03/16 0610 10/03/16 0610 Results 24 hrs Laboratory Tests Test 10/06/16 17:39 10/06/16 20:14 10/07/16 07:56 10/07/16 12:11 Bedside Glucose 114 90 174 142 Medications Medications Current Medications Acetaminophen (Tylenol Supp) 650 mg Q6H PRN [place] PAIN LEVEL 1-3 OR FEVER; Start 09/30/16 at 19:00 Acetaminophen (Tylenol Tab) 650 mg Q6H PRN PO PAIN LEVEL 1-3 OR FEVER; Start at 19:00 Aspirin (Halfprin) 81 mg DAILY PO Last administered on 10/07/16 08:57; Admin Dose 81 MG; Start 10/01/16 at 09:00 Atorvastatin Calcium (Lipitor) 80 mg DAILY@21 PO Last administered on 10/06/16 20:32; Admin Dose 80 MG; Start 09/30/16 at 21:00 Bisacodyl (Dulcolax) 5 mg DAILY PRN PO CONSTIPATION Last administered on 08:57; Admin Dose 5 MG; Start 09/30/16 at 19:00 Bisacodyl (Dulcolax Supp) 10 mg DAILY PRN [place]STIP[place] Last administered on 10/06/16 20:32; Admin Dose 10 MG; Start 09/30/16 at 19:00 Clopidogrel Bisulfate (plaVIX) 75 mg DAILY PO Last administered on 10/07/16 08: 56; Admin Dose 75 MG; Start 10/01/16 at 09:00 Cyclosporine (Restasis) 1 drop Q12 BOTH EYES Last administered on 10/06/16 20: 31; Admin Dose 1 DROP; Start 09/30/16 at 21:00 Docusate Sodium (Colace) 100 mg Q12H PRN PO CONSTIPATION Last administered on 08:42; Admin Dose 100 MG; Start 09/30/16 at 19:00 Enoxaparin Sodium (Lovenox) 30 mg DAILY SC Last administered on 10/07/16 08:54 ; Admin Dose 30 MG; Start 10/01/16 at 09:00 Famotidine (Pepcid) 20 mg QHS PO Last administered on 10/06/16 20:32; Admin Dose 20 MG; Start 09/30/16 at 21:00 Gabapentin (Neurontin) 100 mg BID PO Last administered on 10/07/16 08:57; Admin Dose 100 MG; Start 09/30/16 at 21:00 Hydralazine HCl (Apresoline) 10 mg Q6H PRN IV ELEVATED BP SBP>160; Start at 19:00 Acetaminophen/ Hydrocodone Bitart ([place] (5/325)) 1 tab Q6H PRN PO MODERATE PAIN LEVEL 4-6 Last administered on 10/03/16 12:29; Admin Dose 1 TAB; Start at 19:00 Metoprolol Succinate (Toprol Xl) 50 mg BID PO Last administered on 10/07/16 08: 57; Admin Dose 50 MG; Start 09/30/16 at 21:00 Morphine Sulfate (morphine) 2 mg Q4H PRN IV SEVERE PAIN LEVEL 7-10; Start 09/30 at 19:00 Ondansetron HCl (Zofran Inj) 4 mg Q6H PRN IV NAUSEA AND/OR VOMITING; Start at 19:00 Solifenacin (Vesicare) 5 mg DAILY PO Last administered on 10/07/16 08:56; Admin Dose 5 MG; Start 10/01/16 at 09:00 Docusate Sodium (Colace) 100 mg BID PO Last administered on 10/07/16 08:56; Admin Dose 100 MG; Start 09/30/16 at 21:00 Senna (Senokot) 1 tab HS PO Last administered on 10/06/16 20:31; Admin Dose 1 TAB; Start 09/30/16 at 21:00 Magnesium Hydroxide (Milk Of Mag) 30 ml BID PRN PO CONSTIPATION; Start at 19:30 Lactulose (Enulose) 20 gm DAILY PRN PO CONSTIPATION Last administered on 08:57; Admin Dose 20 GM; Start 09/30/16 at 19:30 Miscellaneous Information 1 ea NOTE XX ; Start 09/30/16 at 19:30 Glucose (Glutose) 15 gm Q15M PRN PO DECREASED GLUCOSE; Start 09/30/16 at 19:30 Glucose (Glutose) 22.5 gm Q15M PRN PO DECREASED GLUCOSE; Start 09/30/16 at 19: 30 Dextrose (D50w Syringe) 25 ml Q15M PRN IV DECREASED GLUCOSE; Start 09/30/16 at 19:30 Dextrose (D50w Syringe) 50 ml Q15M PRN IV DECREASED GLUCOSE Last administered on 10/02/16 17:12; Admin Dose 50 ML; Start 09/30/16 at 19:30 Glucagon (Glucagen) 1 mg Q15M PRN IM DECREASED GLUCOSE; Start 09/30/16 at 19:30 Glucose (Glutose) 15 gm Q15M PRN BUCCAL DECREASED GLUCOSE; Start 09/30/16 at 19 :30 Patient Own Medication 1 ea DAILY BOTH EYES Last administered on 10/07/16 08:58 ; Admin Dose 1 EA; Start 10/03/16 at 12:00 Insulin Glargine (Lantus) 38 unit DAILY SC Last administered on 10/07/16 08:55 ; Admin Dose 38 UNIT; Start 10/07/16 at 09:00 Linagliptin (Tradjenta) 5 mg DAILY PO Last administered on 10/07/16 08:57; Admin Dose 5 MG; Start 10/07/16 at 09:00 Sodium Biphosphate/ Sodium Phosphate (Fleet Enema) 133 ml DAILY PRN [place] CONSTIPATION; Start 10/07/16 at 10:00 Magnesium Citrate (Citroma) 300 ml ONCE PRN PO CONSTIPATION; Start 10/07/16 at 11:00; Stop 10/07/16 at 23:00 Polyethylene Glycol (Miralax) 17 gm DAILY PRN PO CONSTIPATION; Start 10/07/16 at 11:00 ZAINAB NAVA MD October 07, 2016 13:32
--- NOTE | 2016-10-07 19:29 | RADRPT ---
PROCEDURE: XR Abdomen. CLINICAL INDICATION: Constipation. TECHNIQUE: Supine AP views of the abdomen. COMPARISON: None. FINDINGS: A moderate amount of retained gas and stool are seen within nondilated large bowel. There are no di lated loops of small bowel to suggest a bowel obstruction. No abnormal calcifications are identifie d. IMPRESSION: 1. Moderate amount of retained gas and stool in the colon. RPTAT: HTAR .Manuel Beaver MD, MD Date Time Electronically viewed and signed by .Manuel Beaver MD, on 10/07/2016 19:29 .R/
[2016-10-07 20:00] VITALS: BP 124/65; RESP 18
[2016-10-07] MEDS: ATORVASTATIN 80 MG TAB PO SCH ×2 (21:00→21:48)
[2016-10-07] MEDS: SENNA TAB PO SCH ×2 (21:00→21:48)
[2016-10-07] MEDS: FAMOTIDINE 20 MG TAB PO SCH ×2 (21:00→21:48)
[2016-10-08 08:24] VITALS: BP 192/79; RESP 18
[2016-10-08] MEDS: LACTULOSE 30ML CUP PO PRN (08:41)
[2016-10-08] MEDS: ENOXAPARIN 30 MG/0.3 ML SYG SC SCH (08:42)
[2016-10-08] MEDS: INSULIN ASPART [NOVOLOG] 3 ML PEN SC SCH ×7 (08:43→21:00)
[2016-10-08] MEDS: CYCLOSPORINE 0.05% OPH DROPERETTE BOTH EYES SCH ×2 (08:45→21:08)
[2016-10-08] MEDS: DOCUSATE SODIUM 100 MG CAP PO SCH ×2 (08:45→21:08)
[2016-10-08] MEDS: GABAPENTIN 100 MG CAP PO SCH ×2 (08:46→21:08)
[2016-10-08] MEDS: CLOPIDOGREL 75 MG TAB PO SCH (08:46)
[2016-10-08] MEDS: LINAGLIPTIN 5 MG TABLET PO SCH (08:47)
[2016-10-08] MEDS: BISACODYL (EC) 5 MG TAB PO PRN (08:47)
[2016-10-08] MEDS: ASPIRIN (EC) 81 MG TAB PO SCH (08:47)
[2016-10-08] MEDS: SOLIFENACIN 5 MG TAB PO SCH (08:47)
[2016-10-08] MEDS: METOPROLOL (XL) 50 MG TAB PO SCH ×2 (08:47→21:08)
[2016-10-08] MEDS: PAZEO BOTH EYES SCH (08:50)
[2016-10-08] MEDS: EYE BOTH EYES SCH (08:50)
[2016-10-08] MEDS: INSULIN GLARGINE [LANtus] 3 ML PEN SC SCH (09:56)
--- NOTE | 2016-10-08 10:22 | CONS ---
Date/Time of Note Date/Time of Note DATE: 10/08/16 TIME: 10:22 Consult Date/Type/Reason Admit Date/Time Sep 30, 2016 at 17:35 Type of Consultation: Endocrinology Ordering Provider: SOC[facility]RO GARBER [facility], [facility] Subjective Up for activities Objective pulm-cta abd-soft max assist Vital Signs Date Time Temp Pulse Resp B/P Pulse Ox O2 Delivery O2 Flow Rate FiO2 10/08/16 08:24 98.3 85 18 192/79 93 Intake and Output 10/07/16 10/07/16 10/08/16 15:00 23:00 07:00 Intake Total 980 ml 360 ml 800 ml Output Total 450 ml Balance 980 ml -90 ml 800 ml Exam Rehab- Toxic Met Enceph/recent CVA Continue current treatment plan Dysphagia- speech therapy Renal- A/CKD; uremia/UTI HTN DM2 hypothyroidism L1 comp fx Results/Medications Results 24 hrs Laboratory Tests Test 10/07/16 12:11 10/07/16 17:19 10/07/16 20:45 10/08/16 07:59 Bedside Glucose 142 80 87 230 H Medications Current Medications Acetaminophen (Tylenol Supp) 650 mg Q6H PRN [place] PAIN LEVEL 1-3 OR FEVER; Start 09/30/16 at 19:00 Acetaminophen (Tylenol Tab) 650 mg Q6H PRN [place] PAIN LEVEL 1-3 OR FEVER; Start at 19:00 Aspirin (Halfprin) 81 mg DAILY PO Last administered on 10/08/16 08:47; Admin Dose 81 MG; Start 10/01/16 at 09:00 Atorvastatin Calcium (Lipitor) 80 mg DAILY@21 PO Last administered on 10/07/16 21:48; Admin Dose 80 MG; Start 09/30/16 at 21:00 Bisacodyl (Dulcolax) 5 mg DAILY PRN PO CONSTIPATION Last administered on 08:47; Admin Dose 5 MG; Start 09/30/16 at 19:00 Bisacodyl (Dulcolax Supp) 10 mg DAILY PRN [place] CONSTIPATION Last administered on 10/06/16 20:32; Admin Dose 10 MG; Start 09/30/16 at 19:00 Clopidogrel Bisulfate (plaVIX) 75 mg DAILY PO Last administered on 10/08/16 08: 46; Admin Dose 75 MG; Start 10/01/16 at 09:00 Cyclosporine (Restasis) 1 drop Q12 BOTH EYES Last administered on 10/08/16 08: 45; Admin Dose 1 DROP; Start 09/30/16 at 21:00 Docusate Sodium (Colace) 100 mg Q12H PRN PO CONSTIPATION Last administered on 08:42; Admin Dose 100 MG; Start 09/30/16 at 19:00 Enoxaparin Sodium (Lovenox) 30 mg DAILY SC Last administered on 10/08/16 08:42 ; Admin Dose 30 MG; Start 10/01/16 at 09:00 Famotidine (Pepcid) 20 mg QHS PO Last administered on 10/07/16 21:48; Admin Dose 20 MG; Start 09/30/16 at 21:00 Gabapentin (Neurontin) 100 mg BID PO Last administered on 10/08/16 08:46; Admin Dose 100 MG; Start 09/30/16 at 21:00 Hydralazine HCl (Apresoline) 10 mg Q6H PRN IV ELEVATED BP SBP>160 Last administered on 10/08/16 08:48; Admin Dose 10 MG; Start 09/30/16 at 19:00 Acetaminophen/ Hydrocodone Bitart ([place] (5/325)) 1 tab Q6H PRN PO MODERATE PAIN LEVEL 4-6 Last administered on 10/03/16 12:29; Admin Dose 1 TAB; Start at 19:00 Metoprolol Succinate (Toprol Xl) 50 mg BID PO Last administered on 10/08/16 08: 47; Admin Dose 50 MG; Start 09/30/16 at 21:00 Morphine Sulfate (morphine) 2 mg Q4H PRN IV SEVERE PAIN LEVEL 7-10; Start 09/30 at 19:00 Ondansetron HCl (Zofran Inj) 4 mg Q6H PRN IV NAUSEA AND/OR VOMITING; Start at 19:00 Solifenacin (Vesicare) 5 mg DAILY PO Last administered on 10/08/16 08:47; Admin Dose 5 MG; Start 10/01/16 at 09:00 Docusate Sodium (Colace) 100 mg BID PO Last administered on 10/08/16 08:45; Admin Dose 100 MG; Start 09/30/16 at 21:00 Senna (Senokot) 1 tab HS PO Last administered on 10/07/16 21:48; Admin Dose 1 TAB; Start 09/30/16 at 21:00 Magnesium Hydroxide (Milk Of Mag) 30 ml BID PRN PO CONSTIPATION; Start at 19:30 Lactulose (Enulose) 20 gm DAILY PRN PO CONSTIPATION Last administered on 08:41; Admin Dose 20 GM; Start 09/30/16 at 19:30 Miscellaneous Information 1 ea NOTE XX ; Start 09/30/16 at 19:30 Glucose (Glutose) 15 gm Q15M PRN PO DECREASED GLUCOSE; Start 09/30/16 at 19:30 Glucose (Glutose) 22.5 gm Q15M PRN PO DECREASED GLUCOSE; Start 09/30/16 at 19: 30 Dextrose (D50w Syringe) 25 ml Q15M PRN IV DECREASED GLUCOSE; Start 09/30/16 at 19:30 Dextrose (D50w Syringe) 50 ml Q15M PRN IV DECREASED GLUCOSE Last administered on 10/02/16 17:12; Admin Dose 50 ML; Start 09/30/16 at 19:30 Glucagon (Glucagen) 1 mg Q15M PRN IM DECREASED GLUCOSE; Start 09/30/16 at 19:30 Glucose (Glutose) 15 gm Q15M PRN BUCCAL DECREASED GLUCOSE; Start 09/30/16 at 19 :30 Patient Own Medication 1 ea DAILY BOTH EYES Last administered on 10/07/16 08:58 ; Admin Dose 1 EA; Start 10/03/16 at 12:00 Insulin Glargine (Lantus) 38 unit DAILY SC Last administered on 10/08/16 09:56 ; Admin Dose 38 UNIT; Start 10/07/16 at 09:00 Linagliptin (Tradjenta) 5 mg DAILY PO Last administered on 10/08/16 08:47; Admin Dose 5 MG; Start 10/07/16 at 09:00 Sodium Biphosphate/ Sodium Phosphate (Fleet Enema) 133 ml DAILY PRN [place] CONSTIPATION; Start 10/07/16 at 10:00 Polyethylene Glycol (Miralax) 17 gm DAILY PRN PO CONSTIPATION; Start 10/07/16 at 11:00 Assessment/Plan Additional Assessment/Plan Rehab- Toxic Met Enceph/recent CVA Continue rehab program Dysphagia- speech therapy Renal- A/CKD; uremia/UTI HTN DM2 hypothyroidism L1 comp fx SHADY FREEMAN MD October 08, 2016 10:22
--- NOTE | 2016-10-08 16:35 | CONS ---
Date/Time of Note Date/Time of Note DATE: 10/08/16 TIME: 16:35 Consult Date/Type/Reason Admit Date/Time Sep 30, 2016 at 17:35 Type of Consultation: Medicine Ordering Provider: SOCORRO GARBER MD, [facility] Subjective PHYSICAL EXAMINATION: GENERAL: Elderly-appearing lady, comfortable at rest, NECK: Supple. No JVD or lymphadenopathy. CARDIAC: S1, S2, no added sounds or murmurs. CHEST: Diminished air entry bilaterally. ABDOMEN: Soft, nontender. No guarding or rebound. EXTREMITIES: No cyanosis, clubbing, 1+ edema. NEUROLOGIC: Generalized weakness. Objective Vital Signs Date Time Temp Pulse Resp B/P Pulse Ox O2 Delivery O2 Flow Rate FiO2 10/08/16 08:24 98.3 85 18 192/79 93 Intake and Output 10/07/16 10/07/16 10/08/16 15:00 23:00 07:00 Intake Total 980 ml 360 ml 800 ml Output Total 450 ml Balance 980 ml -90 ml 800 ml Results/Medications Results 24 hrs Laboratory Tests Test 10/07/16 17:19 10/07/16 20:45 10/08/16 07:59 10/08/16 12:10 Bedside Glucose 80 87 230 H 293 H Medications Current Medications Acetaminophen (Tylenol Supp) 650 mg Q6H PRN [place] PAIN LEVEL 1-3 OR FEVER; Start 09/30/16 at 19:00 Acetaminophen (Tylenol Tab) 650 mg Q6H PRN PO PAIN LEVEL 1-3 OR FEVER; Start at 19:00 Aspirin (Halfprin) 81 mg DAILY PO Last administered on 10/08/16 08:47; Admin Dose 81 MG; Start 10/01/16 at 09:00 Atorvastatin Calcium (Lipitor) 80 mg DAILY@21 PO Last administered on 10/07/16 21:48; Admin Dose 80 MG; Start 09/30/16 at 21:00 Bisacodyl (Dulcolax) 5 mg DAILY PRN PO CONSTIPATION Last administered on 08:47; Admin Dose 5 MG; Start 09/30/16 at 19:00 Bisacodyl (Dulcolax Supp) 10 mg DAILY PRN [place] CONSTIPATION Last administered on 10/06/16 20:32; Admin Dose 10 MG; Start 09/30/16 at 19:00 Clopidogrel Bisulfate (plaVIX) 75 mg DAILY PO Last administered on 10/08/16 08: 46; Admin Dose 75 MG; Start 10/01/16 at 09:00 Cyclosporine (Restasis) 1 drop Q12 BOTH EYES Last administered on 10/08/16 08: 45; Admin Dose 1 DROP; Start 09/30/16 at 21:00 Docusate Sodium (Colace) 100 mg Q12H PRN PO CONSTIPATION Last administered on 08:42; Admin Dose 100 MG; Start 09/30/16 at 19:00 Enoxaparin Sodium (Lovenox) 30 mg DAILY SC Last administered on 10/08/16 08:42 ; Admin Dose 30 MG; Start 10/01/16 at 09:00 Famotidine (Pepcid) 20 mg QHS PO Last administered on 10/07/16 21:48; Admin Dose 20 MG; Start 09/30/16 at 21:00 Gabapentin (Neurontin) 100 mg BID PO Last administered on 10/08/16 08:46; Admin Dose 100 MG; Start 09/30/16 at 21:00 Hydralazine HCl (Apresoline) 10 mg Q6H PRN IV ELEVATED BP SBP>160 Last administered on 10/08/16 08:48; Admin Dose 10 MG; Start 09/30/16 at 19:00 Acetaminophen/ Hydrocodone Bitart ([place] (5/325)) 1 tab Q6H PRN PO MODERATE PAIN LEVEL 4-6 Last administered on 10/03/16 12:29; Admin Dose 1 TAB; Start at 19:00 Metoprolol Succinate (Toprol Xl) 50 mg BID PO Last administered on 10/08/16 08: 47; Admin Dose 50 MG; Start 09/30/16 at 21:00 Morphine Sulfate (morphine) 2 mg Q4H PRN IV SEVERE PAIN LEVEL 7-10; Start 09/30 at 19:00 Ondansetron HCl (Zofran Inj) 4 mg Q6H PRN IV NAUSEA AND/OR VOMITING; Start at 19:00 Solifenacin (Vesicare) 5 mg DAILY PO Last administered on 10/08/16 08:47; Admin Dose 5 MG; Start 10/01/16 at 09:00 Docusate Sodium (Colace) 100 mg BID PO Last administered on 10/08/16 08:45; Admin Dose 100 MG; Start 09/30/16 at 21:00 Senna (Senokot) 1 tab HS PO Last administered on 10/07/16 21:48; Admin Dose 1 TAB; Start 09/30/16 at 21:00 Magnesium Hydroxide (Milk Of Mag) 30 ml BID PRN PO CONSTIPATION; Start at 19:30 Lactulose (Enulose) 20 gm DAILY PRN PO CONSTIPATION Last administered on 08:41; Admin Dose 20 GM; Start 09/30/16 at 19:30 Miscellaneous Information 1 ea NOTE XX ; Start 09/30/16 at 19:30 Glucose (Glutose) 15 gm Q15M PRN PO DECREASED GLUCOSE; Start 09/30/16 at 19:30 Glucose (Glutose) 22.5 gm Q15M PRN PO DECREASED GLUCOSE; Start 09/30/16 at 19: 30 Dextrose (D50w Syringe) 25 ml Q15M PRN IV DECREASED GLUCOSE; Start 09/30/16 at 19:30 Dextrose (D50w Syringe) 50 ml Q15M PRN IV DECREASED GLUCOSE Last administered on 10/02/16 17:12; Admin Dose 50 ML; Start 09/30/16 at 19:30 Glucagon (Glucagen) 1 mg Q15M PRN IM DECREASED GLUCOSE; Start 09/30/16 at 19:30 Glucose (Glutose) 15 gm Q15M PRN BUCCAL DECREASED GLUCOSE; Start 09/30/16 at 19 :30 Patient Own Medication 1 ea DAILY BOTH EYES Last administered on 10/07/16 08:58 ; Admin Dose 1 EA; Start 10/03/16 at 12:00 Insulin Glargine (Lantus) 38 unit DAILY SC Last administered on 10/08/16 09:56 ; Admin Dose 38 UNIT; Start 10/07/16 at 09:00 Linagliptin (Tradjenta) 5 mg DAILY PO Last administered on 10/08/16 08:47; Admin Dose 5 MG; Start 10/07/16 at 09:00 Sodium Biphosphate/ Sodium Phosphate (Fleet Enema) 133 ml DAILY PRN [place] CONSTIPATION; Start 10/07/16 at 10:00 Polyethylene Glycol (Miralax) 17 gm DAILY PRN PO CONSTIPATION; Start 10/07/16 at 11:00 Assessment/Plan Chief Complaint/Hosp Course IMPRESSION: 1. Recent cerebrovascular accident. 2. Resolved, poorly controlled encephalopathy. 3. L1 compression fractures, likely cause of her low back pain. 4. History of insulin-dependent diabetes poorly controlled 5. Essential hypertension. PLAN: 1. The patient is to continue with current medications including Lovenox and Plavix. 2. Endocrinology recommendations appreciated. 3. Continue antihypertensives. 4. DVT and GI prophylaxis. 5. Physical therapy and speech therapy recommendations. Problems: SOCORRO GARBER MD, [facility] October 08, 2016 16:35
[2016-10-08 20:00] VITALS: BP 122/54; RESP 18
[2016-10-08] MEDS: SENNA TAB PO SCH (21:08)
[2016-10-08] MEDS: FAMOTIDINE 20 MG TAB PO SCH (21:12)
--- NOTE | 2016-10-08 21:14 | CONS ---
DATE OF ADMISSION: 09/30/2016 DATE OF CONSULTATION: 10/08/2016 PSYCHOLOGY - INDIVIDUAL SESSION - [id number]: This is a followup on a patient that was seen last week. The patient was seen in bed. The patient reports that she feels very weak and that she is depressed. The patient is fearful that she is not g oing to be able to recover to the point where she was, prior to entering the hospital. The patient does want to return to her residence in [place] as soon as possible. The patient does not feel like she is able to function in the way that she would like. I worked with the patient supportively , to try to help encourage her to continue to work on her physical and emotional issues. Dictated By: LUIS FERNANDO CHARLTON PHD UCHE/JEAN Conf#: [id number] DID#: [id number]
[2016-10-08] MEDS: ATORVASTATIN 80 MG TAB PO SCH (21:53)
--- NOTE | 2016-10-08 22:37 | CONS ---
Date/Time of Note Date/Time of Note DATE: 10/08/16 TIME: 22:34 Assessment/Plan Assessment/Plan Problems: (1) Diabetes mellitus type 2 in obese Status: Chronic Comment: Glucose levels above goal today. Appears that new insulin doses insufficient. Will need to increase dose to improve control. Increase lantus to 42 qam. Increase Novolog to 21 w/ B and L but cont. 18 w/ D. Consultation Date/Type/Reason Admit Date/Time Sep 30, 2016 at 17:35 Initial Consult Date 10/07/16 Type of Consultation: Endocrinology Reason for Consultation T2DM management Referring Provider: SOCORRO GARBER MD, [facility] 24 HR Interval Summary Constitutional: no complaints Exam/Review of Systems Vital Signs Vitals VS - Last 72 Hours, by Label Date Time Temp Pulse Resp B/P Pulse Ox O2 Delivery O2 Flow Rate FiO2 10/08/16 08:24 98.3 85 18 192/79 93 10/07/16 20:00 97.2 70 18 124/65 94 10/07/16 08:08 98.4 74 18 135/63 94 10/06/16 19:51 98.5 75 18 140/67 98 10/06/16 07:30 98.2 78 18 143/63 100 Vital Signs Date Time Temp Pulse Resp B/P Pulse Ox O2 Delivery O2 Flow Rate FiO2 10/08/16 08:24 98.3 85 18 192/79 93 Intake and Output 10/07/16 10/07/16 10/08/16 15:00 23:00 07:00 Intake Total 980 ml 360 ml 800 ml Output Total 450 ml Balance 980 ml -90 ml 800 ml Exam Constitutional: alert, obese, oriented Psych: nl mood/affect, no complaints Respiratory: clear to auscultation, normal air movement Cardiovascular: nl pulses, regular rate and rhythm, No edema, No murmurs/extra sounds, No rub Gastrointestinal: bowel sounds, nl liver, spleen, non-tender, soft, No mass, No rebound or guarding Musculoskeletal: nl extremities to inspection Extremities: normal pulses, No clubbing, No cyanosis, No edema 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: 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, nl mental status, nl speech, nl strength Additional Comments Bedside Glucose - 72 Hours Test 10/06/16 07:51 10/06/16 12:04 10/06/16 17:39 10/06/16 20:14 Bedside Glucose 257mg/dL (70-220) H 335mg/dL (70-220) H 114mg/dL (70-220) 90mg/dL (70-220) Test 10/07/16 07:56 10/07/16 12:11 10/07/16 17:19 10/07/16 20:45 Bedside Glucose 174mg/dL (70-220) 142mg/dL (70-220) 80mg/dL (70-220) 87mg/dL (70-220) Test 10/08/16 07:59 10/08/16 12:10 10/08/16 17:17 10/08/16 21:01 Bedside Glucose 230mg/dL (70-220) H 293mg/dL (70-220) H 196mg/dL (70-220) 85mg/dL (70-220) Results Results 24 hrs Laboratory Tests Test 10/08/16 07:59 10/08/16 12:10 10/08/16 17:17 10/08/16 21:01 Bedside Glucose 230 H 293 H 196 85 Medications Medications Current Medications Acetaminophen (Tylenol Supp) 650 mg Q6H PRN [place] PAIN LEVEL 1-3 OR FEVER; Start 09/30/16 at 19:00 Acetaminophen (Tylenol Tab) 650 mg Q6H PRN PO PAIN LEVEL 1-3 OR FEVER; Start at 19:00 Aspirin (Halfprin) 81 mg DAILY PO Last administered on 10/08/16 08:47; Admin Dose 81 MG; Start 10/01/16 at 09:00 Atorvastatin Calcium (Lipitor) 80 mg DAILY@21 PO Last administered on 10/08/16 21:53; Admin Dose 80 MG; Start 09/30/16 at 21:00 Bisacodyl (Dulcolax) 5 mg DAILY PRN PO CONSTIPATION Last administered on 08:47; Admin Dose 5 MG; Start 09/30/16 at 19:00 Bisacodyl (Dulcolax Supp) 10 mg DAILY PRN [place] CONSTIPATION Last administered on 10/06/16 20:32; Admin Dose 10 MG; Start 09/30/16 at 19:00 Clopidogrel Bisulfate (plaVIX) 75 mg DAILY PO Last administered on 10/08/16 08: 46; Admin Dose 75 MG; Start 10/01/16 at 09:00 Cyclosporine (Restasis) 1 drop Q12 BOTH EYES Last administered on 10/08/16 21: 08; Admin Dose 1 DROP; Start 09/30/16 at 21:00 Docusate Sodium (Colace) 100 mg Q12H PRN PO CONSTIPATION Last administered on 08:42; Admin Dose 100 MG; Start 09/30/16 at 19:00 Enoxaparin Sodium (Lovenox) 30 mg DAILY SC Last administered on 10/08/16 08:42 ; Admin Dose 30 MG; Start 10/01/16 at 09:00 Famotidine (Pepcid) 20 mg QHS PO Last administered on 10/08/16 21:12; Admin Dose 20 MG; Start 09/30/16 at 21:00 Gabapentin (Neurontin) 100 mg BID PO Last administered on 10/08/16 21:08; Admin Dose 100 MG; Start 09/30/16 at 21:00 Hydralazine HCl (Apresoline) 10 mg Q6H PRN IV ELEVATED BP SBP>160 Last administered on 10/08/16 08:48; Admin Dose 10 MG; Start 09/30/16 at 19:00 Acetaminophen/ Hydrocodone Bitart ([place] (5/325)) 1 tab Q6H PRN PO MODERATE PAIN LEVEL 4-6 Last administered on 10/03/16 12:29; Admin Dose 1 TAB; Start at 19:00 Metoprolol Succinate (Toprol Xl) 50 mg BID PO Last administered on 10/08/16 21: 08; Admin Dose 50 MG; Start 09/30/16 at 21:00 Morphine Sulfate (morphine) 2 mg Q4H PRN IV SEVERE PAIN LEVEL 7-10; Start 09/30 at 19:00 Ondansetron HCl (Zofran Inj) 4 mg Q6H PRN IV NAUSEA AND/OR VOMITING; Start at 19:00 Solifenacin (Vesicare) 5 mg DAILY PO Last administered on 10/08/16 08:47; Admin Dose 5 MG; Start 10/01/16 at 09:00 Docusate Sodium (Colace) 100 mg BID PO Last administered on 10/08/16 21:08; Admin Dose 100 MG; Start 09/30/16 at 21:00 Senna (Senokot) 1 tab HS PO Last administered on 10/08/16 21:08; Admin Dose 1 TAB; Start 09/30/16 at 21:00 Magnesium Hydroxide (Milk Of Mag) 30 ml BID PRN PO CONSTIPATION; Start at 19:30 Lactulose (Enulose) 20 gm DAILY PRN PO CONSTIPATION Last administered on 08:41; Admin Dose 20 GM; Start 09/30/16 at 19:30 Miscellaneous Information 1 ea NOTE XX ; Start 09/30/16 at 19:30 Glucose (Glutose) 15 gm Q15M PRN PO DECREASED GLUCOSE; Start 09/30/16 at 19:30 Glucose (Glutose) 22.5 gm Q15M PRN PO DECREASED GLUCOSE; Start 09/30/16 at 19: 30 Dextrose (D50w Syringe) 25 ml Q15M PRN IV DECREASED GLUCOSE; Start 09/30/16 at 19:30 Dextrose (D50w Syringe) 50 ml Q15M PRN IV DECREASED GLUCOSE Last administered on 10/02/16 17:12; Admin Dose 50 ML; Start 09/30/16 at 19:30 Glucagon (Glucagen) 1 mg Q15M PRN IM DECREASED GLUCOSE; Start 09/30/16 at 19:30 Glucose (Glutose) 15 gm Q15M PRN BUCCAL DECREASED GLUCOSE; Start 09/30/16 at 19 :30 Patient Own Medication 1 ea DAILY BOTH EYES Last administered on 10/07/16 08:58 ; Admin Dose 1 EA; Start 10/03/16 at 12:00 Linagliptin (Tradjenta) 5 mg DAILY PO Last administered on 10/08/16 08:47; Admin Dose 5 MG; Start 10/07/16 at 09:00 Sodium Biphosphate/ Sodium Phosphate (Fleet Enema) 133 ml DAILY PRN [place] CONSTIPATION; Start 10/07/16 at 10:00 Polyethylene Glycol (Miralax) 17 gm DAILY PRN PO CONSTIPATION; Start 10/07/16 at 11:00 Insulin Glargine (Lantus) 44 unit DAILY SC ; Start 10/09/16 at 09:00 ZAINAB NAVA MD October 08, 2016 22:37
[2016-10-09 07:30] VITALS: BP 116/55; RESP 18
[2016-10-09] MEDS ORDERED: INSULIN ASPART [NOVOLOG] 3 ML PEN SC SCH (07:35)
[2016-10-09] MEDS: DOCUSATE SODIUM 100 MG CAP PO SCH ×2 (08:28→21:15)
[2016-10-09] MEDS: SOLIFENACIN 5 MG TAB PO SCH (08:28)
[2016-10-09] MEDS: LINAGLIPTIN 5 MG TABLET PO SCH (08:28)
[2016-10-09] MEDS: GABAPENTIN 100 MG CAP PO SCH ×2 (08:28→21:15)
[2016-10-09] MEDS: CLOPIDOGREL 75 MG TAB PO SCH (08:28)
[2016-10-09] MEDS: ASPIRIN (EC) 81 MG TAB PO SCH (08:28)
[2016-10-09] MEDS: METOPROLOL (XL) 50 MG TAB PO SCH ×2 (08:28→21:16)
[2016-10-09] MEDS: ENOXAPARIN 30 MG/0.3 ML SYG SC SCH (08:30)
[2016-10-09] MEDS: INSULIN ASPART [NOVOLOG] 3 ML PEN SC SCH ×7 (08:32→21:00)
[2016-10-09] MEDS: INSULIN GLARGINE [LANtus] 3 ML PEN SC SCH (08:34)
--- NOTE | 2016-10-09 08:48 | CONS ---
Date/Time of Note Date/Time of Note DATE: 10/09/16 TIME: 08:47 Assessment/Plan Assessment/Plan Problems: (1) Diabetes mellitus type 2 in obese Status: Chronic Comment: sugars coming under control nicely. Observe on present regimen Consultation Date/Type/Reason Admit Date/Time Sep 30, 2016 at 17:35 Initial Consult Date 10/07/16 Type of Consultation: Endocrinology Referring Provider: SOCORRO GARBER MD, [facility] 24 HR Interval Summary Free Text/Dictation No chnages Exam/Review of Systems Vital Signs Vitals Vital Signs Date Time Temp Pulse Resp B/P Pulse Ox O2 Delivery O2 Flow Rate FiO2 10/08/16 20:00 98.2 94 18 122/54 96 Intake and Output 10/08/16 10/08/16 10/09/16 15:00 23:00 07:00 Intake Total 720 ml 360 ml Output Total 850 ml Balance 720 ml 360 ml -850 ml Exam Constitutional: alert, oriented Results Results 24 hrs Laboratory Tests Test 10/08/16 12:10 10/08/16 17:17 10/08/16 21:01 10/09/16 01:52 Bedside Glucose 293 H 196 85 103 Test 10/09/16 08:04 Bedside Glucose 147 Medications Medications Current Medications Acetaminophen (Tylenol Supp) 650 mg Q6H PRN [place] PAIN LEVEL 1-3 OR FEVER; Start 09/30/16 at 19:00 Acetaminophen (Tylenol Tab) 650 mg Q6H PRN PO PAIN LEVEL 1-3 OR FEVER; Start at 19:00 Aspirin (Halfprin) 81 mg DAILY PO Last administered on 10/09/16 08:28; Admin Dose 81 MG; Start 10/01/16 at 09:00 Atorvastatin Calcium (Lipitor) 80 mg DAILY@21 PO Last administered on 10/08/16 21:53; Admin Dose 80 MG; Start 09/30/16 at 21:00 Bisacodyl (Dulcolax) 5 mg DAILY PRN PO CONSTIPATION Last administered on 08:47; Admin Dose 5 MG; Start 09/30/16 at 19:00 Bisacodyl (Dulcolax Supp) 10 mg DAILY PRN [place] CONSTIPATION Last administered on 10/06/16 20:32; Admin Dose 10 MG; Start 09/30/16 at 19:00 Clopidogrel Bisulfate (plaVIX) 75 mg DAILY PO Last administered on 10/09/16 08: 28; Admin Dose 75 MG; Start 10/01/16 at 09:00 Cyclosporine (Restasis) 1 drop Q12 BOTH EYES Last administered on 10/08/16 21: 08; Admin Dose 1 DROP; Start 09/30/16 at 21:00 Docusate Sodium (Colace) 100 mg Q12H PRN PO CONSTIPATION Last administered on 08:42; Admin Dose 100 MG; Start 09/30/16 at 19:00 Enoxaparin Sodium (Lovenox) 30 mg DAILY SC Last administered on 10/09/16 08:30 ; Admin Dose 30 MG; Start 10/01/16 at 09:00 Famotidine (Pepcid) 20 mg QHS PO Last administered on 10/08/16 21:12; Admin Dose 20 MG; Start 09/30/16 at 21:00 Gabapentin (Neurontin) 100 mg BID PO Last administered on 10/09/16 08:28; Admin Dose 100 MG; Start 09/30/16 at 21:00 Hydralazine HCl (Apresoline) 10 mg Q6H PRN IV ELEVATED BP SBP>160 Last administered on 10/08/16 08:48; Admin Dose 10 MG; Start 09/30/16 at 19:00 Acetaminophen/ Hydrocodone Bitart ([place] (5/325)) 1 tab Q6H PRN PO MODERATE PAIN LEVEL 4-6 Last administered on 10/03/16 12:29; Admin Dose 1 TAB; Start at 19:00 Metoprolol Succinate (Toprol Xl) 50 mg BID PO Last administered on 10/09/16 08: 28; Admin Dose 50 MG; Start 09/30/16 at 21:00 Morphine Sulfate (morphine) 2 mg Q4H PRN IV SEVERE PAIN LEVEL 7-10; Start 09/30 at 19:00 Ondansetron HCl (Zofran Inj) 4 mg Q6H PRN IV NAUSEA AND/OR VOMITING; Start at 19:00 Solifenacin (Vesicare) 5 mg DAILY PO Last administered on 10/09/16 08:28; Admin Dose 5 MG; Start 4/26/17 at 09:00 Docusate Sodium (Colace) 100 mg BID PO Last administered on 10/09/16 08:28; Admin Dose 100 MG; Start 09/30/16 at 21:00 Senna (Senokot) 1 tab HS PO Last administered on 10/08/16 21:08; Admin Dose 1 TAB; Start 09/30/16 at 21:00 Magnesium Hydroxide (Milk Of Mag) 30 ml BID PRN PO CONSTIPATION; Start at 19:30 Lactulose (Enulose) 20 gm DAILY PRN PO CONSTIPATION Last administered on 08:41; Admin Dose 20 GM; Start 09/30/16 at 19:30 Miscellaneous Information 1 ea NOTE XX ; Start 09/30/16 at 19:30 Glucose (Glutose) 15 gm Q15M PRN PO DECREASED GLUCOSE; Start 09/30/16 at 19:30 Glucose (Glutose) 22.5 gm Q15M PRN PO DECREASED GLUCOSE; Start 09/30/16 at 19: 30 Dextrose (D50w Syringe) 25 ml Q15M PRN IV DECREASED GLUCOSE; Start 09/30/16 at 19:30 Dextrose (D50w Syringe) 50 ml Q15M PRN IV DECREASED GLUCOSE Last administered on 10/02/16 17:12; Admin Dose 50 ML; Start 09/30/16 at 19:30 Glucagon (Glucagen) 1 mg Q15M PRN IM DECREASED GLUCOSE; Start 09/30/16 at 19:30 Glucose (Glutose) 15 gm Q15M PRN BUCCAL DECREASED GLUCOSE; Start 09/30/16 at 19 :30 Patient Own Medication 1 ea DAILY BOTH EYES Last administered on 10/07/16 08:58 ; Admin Dose 1 EA; Start 10/03/16 at 12:00 Linagliptin (Tradjenta) 5 mg DAILY PO Last administered on 10/09/16 08:28; Admin Dose 5 MG; Start 10/07/16 at 09:00 Sodium Biphosphate/ Sodium Phosphate (Fleet Enema) 133 ml DAILY PRN [place] CONSTIPATION; Start 10/07/16 at 10:00 Polyethylene Glycol (Miralax) 17 gm DAILY PRN PO CONSTIPATION; Start 10/07/16 at 11:00 Insulin Glargine (Lantus) 42 unit DAILY SC Last administered on 10/09/16 08:34 ; Admin Dose 42 UNIT; Start 10/09/16 at 09:00 RIKA POWERS MD October 09, 2016 08:48
[2016-10-09] MEDS: CYCLOSPORINE 0.05% OPH DROPERETTE BOTH EYES SCH ×2 (09:00→21:53)
[2016-10-09] MEDS: EYE BOTH EYES SCH (09:00)
[2016-10-09] MEDS: PAZEO BOTH EYES SCH (09:00)
[2016-10-09] MEDS ORDERED: INSULIN GLARGINE [LANtus] 3 ML PEN SC SCH (09:00)
--- NOTE | 2016-10-09 12:22 | CONS ---
Date/Time of Note Date/Time of Note DATE: 10/09/16 TIME: 12:21 Consult Date/Type/Reason Admit Date/Time Sep 30, 2016 at 17:35 Type of Consultation: Endocrinology Ordering Provider: SOCORRO GARBER MD, [facility] Subjective Activity tolerance improving Objective pulm-cta abd-soft max assist bed mobility Vital Signs Date Time Temp Pulse Resp B/P Pulse Ox O2 Delivery O2 Flow Rate FiO2 10/09/16 07:30 97.6 88 18 116/55 93 Intake and Output 10/08/16 10/08/16 10/09/16 15:00 23:00 07:00 Intake Total 720 ml 360 ml Output Total 850 ml Balance 720 ml 360 ml -850 ml Results/Medications Results 24 hrs Laboratory Tests Test 10/08/16 17:17 10/08/16 21:01 10/09/16 01:52 10/09/16 08:04 Bedside Glucose 196 85 103 147 Medications Current Medications Acetaminophen (Tylenol Supp) 650 mg Q6H PRN [place] PAIN LEVEL 1-3 OR FEVER; Start 09/30/16 at 19:00 Acetaminophen (Tylenol Tab) 650 mg Q6H PRN PO PAIN LEVEL 1-3 OR FEVER; Start at 19:00 Aspirin (Halfprin) 81 mg DAILY PO Last administered on 10/09/16 08:28; Admin Dose 81 MG; Start 10/01/16 at 09:00 Atorvastatin Calcium (Lipitor) 80 mg DAILY@21 PO Last administered on 10/08/16 21:53; Admin Dose 80 MG; Start 09/30/16 at 21:00 Bisacodyl (Dulcolax) 5 mg DAILY PRN PO CONSTIPATION Last administered on 08:47; Admin Dose 5 MG; Start 09/30/16 at 19:00 Bisacodyl (Dulcolax Supp) 10 mg DAILY PRN [place] CONSTIPATION Last administered on 10/06/16 20:32; Admin Dose 10 MG; Start 09/30/16 at 19:00 Clopidogrel Bisulfate (plaVIX) 75 mg DAILY PO Last administered on 10/09/16 08: 28; Admin Dose 75 MG; Start 10/01/16 at 09:00 Cyclosporine (Restasis) 1 drop Q12 BOTH EYES Last administered on 10/08/16 21: 08; Admin Dose 1 DROP; Start 09/30/16 at 21:00 Docusate Sodium (Colace) 100 mg Q12H PRN PO CONSTIPATION Last administered on 08:42; Admin Dose 100 MG; Start 09/30/16 at 19:00 Enoxaparin Sodium (Lovenox) 30 mg DAILY SC Last administered on 10/09/16 08:30 ; Admin Dose 30 MG; Start 10/01/16 at 09:00 Famotidine (Pepcid) 20 mg QHS PO Last administered on 10/08/16 21:12; Admin Dose 20 MG; Start 09/30/16 at 21:00 Gabapentin (Neurontin) 100 mg BID PO Last administered on 10/09/16 08:28; Admin Dose 100 MG; Start 09/30/16 at 21:00 Hydralazine HCl (Apresoline) 10 mg Q6H PRN IV ELEVATED BP SBP>160 Last administered on 10/08/16 08:48; Admin Dose 10 MG; Start 09/30/16 at 19:00 Acetaminophen/ Hydrocodone Bitart ([place] (5/325)) 1 tab Q6H PRN PO MODERATE PAIN LEVEL 4-6 Last administered on 10/03/16 12:29; Admin Dose 1 TAB; Start at 19:00 Metoprolol Succinate (Toprol Xl) 50 mg BID PO Last administered on 10/09/16 08: 28; Admin Dose 50 MG; Start 09/30/16 at 21:00 Morphine Sulfate (morphine) 2 mg Q4H PRN IV SEVERE PAIN LEVEL 7-10; Start 09/30 at 19:00 Ondansetron HCl (Zofran Inj) 4 mg Q6H PRN IV NAUSEA AND/OR VOMITING; Start at 19:00 Solifenacin (Vesicare) 5 mg DAILY PO Last administered on 10/09/16 08:28; Admin Dose 5 MG; Start 10/01/16 at 09:00 Docusate Sodium (Colace) 100 mg BID PO Last administered on 10/09/16 08:28; Admin Dose 100 MG; Start 09/30/16 at 21:00 Senna (Senokot) 1 tab HS PO Last administered on 10/08/16 21:08; Admin Dose 1 TAB; Start 09/30/16 at 21:00 Magnesium Hydroxide (Milk Of Mag) 30 ml BID PRN PO CONSTIPATION; Start at 19:30 Lactulose (Enulose) 20 gm DAILY PRN PO CONSTIPATION Last administered on 08:41; Admin Dose 20 GM; Start 09/30/16 at 19:30 Miscellaneous Information 1 ea NOTE XX ; Start 09/30/16 at 19:30 Glucose (Glutose) 15 gm Q15M PRN PO DECREASED GLUCOSE; Start 09/30/16 at 19:30 Glucose (Glutose) 22.5 gm Q15M PRN PO DECREASED GLUCOSE; Start 09/30/16 at 19: 30 Dextrose (D50w Syringe) 25 ml Q15M PRN IV DECREASED GLUCOSE; Start 09/30/16 at 19:30 Dextrose (D50w Syringe) 50 ml Q15M PRN IV DECREASED GLUCOSE Last administered on 10/02/16 17:12; Admin Dose 50 ML; Start 09/30/16 at 19:30 Glucagon (Glucagen) 1 mg Q15M PRN IM DECREASED GLUCOSE; Start 09/30/16 at 19:30 Glucose (Glutose) 15 gm Q15M PRN BUCCAL DECREASED GLUCOSE; Start 09/30/16 at 19 :30 Patient Own Medication 1 ea DAILY BOTH EYES Last administered on 10/07/16 08:58 ; Admin Dose 1 EA; Start 10/03/16 at 12:00 Linagliptin (Tradjenta) 5 mg DAILY PO Last administered on 10/09/16 08:28; Admin Dose 5 MG; Start 10/07/16 at 09:00 Sodium Biphosphate/ Sodium Phosphate (Fleet Enema) 133 ml DAILY PRN [place] CONSTIPATION; Start 10/07/16 at 10:00 Polyethylene Glycol (Miralax) 17 gm DAILY PRN PO CONSTIPATION; Start 10/07/16 at 11:00 Insulin Glargine (Lantus) 42 unit DAILY SC Last administered on 10/09/16 08:34 ; Admin Dose 42 UNIT; Start 10/09/16 at 09:00 Assessment/Plan Additional Assessment/Plan Rehab- Toxic Met Enceph/recent CVA Increase activities as tolerated. Dysphagia- speech therapy Renal- A/CKD; uremia/UTI HTN DM2 hypothyroidism L1 comp fx SHADY FREEMAN MD October 09, 2016 12:22
--- NOTE | 2016-10-09 12:36 | CONS ---
Date/Time of Note Date/Time of Note DATE: 10/09/16 TIME: 12:35 Consult Date/Type/Reason Admit Date/Time Sep 30, 2016 at 17:35 Type of Consultation: Internal medicine Ordering Provider: SOCORRO GARBER MD, [facility] Subjective Patient remains stable no new events Objective Vital Signs Date Time Temp Pulse Resp B/P Pulse Ox O2 Delivery O2 Flow Rate FiO2 10/09/16 07:30 97.6 88 18 116/55 93 Intake and Output 10/08/16 10/08/16 10/09/16 15:00 23:00 07:00 Intake Total 720 ml 360 ml Output Total 850 ml Balance 720 ml 360 ml -850 ml Exam PHYSICAL EXAMINATION: GENERAL: Elderly-appearing lady, comfortable at rest, NECK: Supple. No JVD or lymphadenopathy. CARDIAC: S1, S2, no added sounds or murmurs. CHEST: Diminished air entry bilaterally. ABDOMEN: Soft, nontender. No guarding or rebound. EXTREMITIES: No cyanosis, clubbing, 1+ edema. NEUROLOGIC: Generalized weakness. Results/Medications Results 24 hrs Laboratory Tests Test 10/08/16 17:17 10/08/16 21:01 10/09/16 01:52 10/09/16 08:04 Bedside Glucose 196 85 103 147 Medications Current Medications Acetaminophen (Tylenol Supp) 650 mg Q6H PRN [place] PAIN LEVEL 1-3 OR FEVER; Start 09/30/16 at 19:00 Acetaminophen (Tylenol Tab) 650 mg Q6H PRN PO PAIN LEVEL 1-3 OR FEVER; Start at 19:00 Aspirin (Halfprin) 81 mg DAILY PO Last administered on 10/09/16 08:28; Admin Dose 81 MG; Start 10/01/16 at 09:00 Atorvastatin Calcium (Lipitor) 80 mg DAILY@21 PO Last administered on 10/08/16 21:53; Admin Dose 80 MG; Start 09/30/16 at 21:00 Bisacodyl (Dulcolax) 5 mg DAILY PRN PO CONSTIPATION Last administered on 08:47; Admin Dose 5 MG; Start 09/30/16 at 19:00 Bisacodyl (Dulcolax Supp) 10 mg DAILY PRN [place] CONSTIPATION Last administered on 10/06/16 20:32; Admin Dose 10 MG; Start 09/30/16 at 19:00 Clopidogrel Bisulfate (plaVIX) 75 mg DAILY PO Last administered on 10/09/16 08: 28; Admin Dose 75 MG; Start 10/01/16 at 09:00 Cyclosporine (Restasis) 1 drop Q12 BOTH EYES Last administered on 10/08/16 21: 08; Admin Dose 1 DROP; Start 09/30/16 at 21:00 Docusate Sodium (Colace) 100 mg Q12H PRN PO CONSTIPATION Last administered on 08:42; Admin Dose 100 MG; Start 09/30/16 at 19:00 Enoxaparin Sodium (Lovenox) 30 mg DAILY SC Last administered on 10/09/16 08:30 ; Admin Dose 30 MG; Start 10/01/16 at 09:00 Famotidine (Pepcid) 20 mg QHS PO Last administered on 10/08/16 21:12; Admin Dose 20 MG; Start 09/30/16 at 21:00 Gabapentin (Neurontin) 100 mg BID PO Last administered on 10/09/16 08:28; Admin Dose 100 MG; Start 09/30/16 at 21:00 Hydralazine HCl (Apresoline) 10 mg Q6H PRN IV ELEVATED BP SBP>160 Last administered on 10/08/16 08:48; Admin Dose 10 MG; Start 09/30/16 at 19:00 Acetaminophen/ Hydrocodone Bitart ([place] (5/325)) 1 tab Q6H PRN PO MODERATE PAIN LEVEL 4-6 Last administered on 10/03/16 12:29; Admin Dose 1 TAB; Start at 19:00 Metoprolol Succinate (Toprol Xl) 50 mg BID PO Last administered on 10/09/16 08: 28; Admin Dose 50 MG; Start 09/30/16 at 21:00 Morphine Sulfate (morphine) 2 mg Q4H PRN IV SEVERE PAIN LEVEL 7-10; Start 09/30 at 19:00 Ondansetron HCl (Zofran Inj) 4 mg Q6H PRN IV NAUSEA AND/OR VOMITING; Start at 19:00 Solifenacin (Vesicare) 5 mg DAILY PO Last administered on 10/09/16 08:28; Admin Dose 5 MG; Start 10/01/16 at 09:00 Docusate Sodium (Colace) 100 mg BID PO Last administered on 10/09/16 08:28; Admin Dose 100 MG; Start 09/30/16 at 21:00 Senna (Senokot) 1 tab HS PO Last administered on 10/08/16 21:08; Admin Dose 1 TAB; Start 09/30/16 at 21:00 Magnesium Hydroxide (Milk Of Mag) 30 ml BID PRN PO CONSTIPATION; Start at 19:30 Lactulose (Enulose) 20 gm DAILY PRN PO CONSTIPATION Last administered on 08:41; Admin Dose 20 GM; Start 09/30/16 at 19:30 Miscellaneous Information 1 ea NOTE XX ; Start 09/30/16 at 19:30 Glucose (Glutose) 15 gm Q15M PRN PO DECREASED GLUCOSE; Start 09/30/16 at 19:30 Glucose (Glutose) 22.5 gm Q15M PRN PO DECREASED GLUCOSE; Start 09/30/16 at 19: 30 Dextrose (D50w Syringe) 25 ml Q15M PRN IV DECREASED GLUCOSE; Start 09/30/16 at 19:30 Dextrose (D50w Syringe) 50 ml Q15M PRN IV DECREASED GLUCOSE Last administered on 10/02/16 17:12; Admin Dose 50 ML; Start 09/30/16 at 19:30 Glucagon (Glucagen) 1 mg Q15M PRN IM DECREASED GLUCOSE; Start 09/30/16 at 19:30 Glucose (Glutose) 15 gm Q15M PRN BUCCAL DECREASED GLUCOSE; Start 09/30/16 at 19 :30 Patient Own Medication 1 ea DAILY BOTH EYES Last administered on 10/07/16 08:58 ; Admin Dose 1 EA; Start 10/03/16 at 12:00 Linagliptin (Tradjenta) 5 mg DAILY PO Last administered on 10/09/16 08:28; Admin Dose 5 MG; Start 10/07/16 at 09:00 Sodium Biphosphate/ Sodium Phosphate (Fleet Enema) 133 ml DAILY PRN [place] CONSTIPATION; Start 10/07/16 at 10:00 Polyethylene Glycol (Miralax) 17 gm DAILY PRN PO CONSTIPATION; Start 10/07/16 at 11:00 Insulin Glargine (Lantus) 42 unit DAILY SC Last administered on 5/4/17at 08:34 ; Admin Dose 42 UNIT; Start 10/09/16 at 09:00 Assessment/Plan Chief Complaint/Hosp Course IMPRESSION: 1. Recent cerebrovascular accident. 2. Resolved, poorly controlled encephalopathy. 3. L1 compression fractures, likely cause of her low back pain. 4. History of insulin-dependent diabetes poorly controlled 5. Essential hypertension. PLAN: 1. The patient is to continue with current medications including Lovenox and Plavix. 2. Endocrinology recommendations appreciated. Improved glycemic control 3. Continue antihypertensives. 4. DVT and GI prophylaxis. 5. Physical therapy and speech therapy recommendations. Problems: SOCORRO GARBER MD, [facility] October 09, 2016 12:36
[2016-10-09] MEDS: SENNA TAB PO SCH (21:15)
[2016-10-09] MEDS: FAMOTIDINE 20 MG TAB PO SCH (21:16)
[2016-10-09] MEDS: ATORVASTATIN 80 MG TAB PO SCH (21:17)
[2016-10-10] MEDS: DOCUSATE SODIUM 100 MG CAP PO SCH ×2 (08:57→21:15)
[2016-10-10] MEDS: PAZEO BOTH EYES SCH (08:57)
[2016-10-10] MEDS: CLOPIDOGREL 75 MG TAB PO SCH (08:57)
[2016-10-10] MEDS: CYCLOSPORINE 0.05% OPH DROPERETTE BOTH EYES SCH ×2 (08:57→22:42)
[2016-10-10] MEDS: EYE BOTH EYES SCH (08:57)
[2016-10-10] MEDS: GABAPENTIN 100 MG CAP PO SCH ×2 (08:57→21:19)
[2016-10-10] MEDS: SOLIFENACIN 5 MG TAB PO SCH (08:58)
[2016-10-10] MEDS: ASPIRIN (EC) 81 MG TAB PO SCH (08:58)
[2016-10-10] MEDS: LINAGLIPTIN 5 MG TABLET PO SCH (08:58)
[2016-10-10 09:02] VITALS: BP 122/56; RESP 18
[2016-10-10] MEDS: INSULIN GLARGINE [LANtus] 3 ML PEN SC SCH (09:02)
[2016-10-10] MEDS: ENOXAPARIN 30 MG/0.3 ML SYG SC SCH (09:03)
[2016-10-10] MEDS: INSULIN ASPART [NOVOLOG] 3 ML PEN SC SCH ×7 (09:06→21:00)
[2016-10-10] MEDS: METOPROLOL (XL) 50 MG TAB PO SCH ×2 (09:09→21:17)
--- NOTE | 2016-10-10 11:25 | CONS ---
Date/Time of Note Date/Time of Note DATE: 10/10/16 TIME: 11:24 Consult Date/Type/Reason Admit Date/Time Sep 30, 2016 at 17:35 Type of Consultation: Internal medicine Ordering Provider: SOCOR[facility] GARBER MD, [facility] Subjective Activity tolerance improving Objective pulm-cta abd-soft max assist transfer Vital Signs Date Time Temp Pulse Resp B/P Pulse Ox O2 Delivery O2 Flow Rate FiO2 10/10/16 09:02 98.0 77 18 122/56 94 Intake and Output 10/09/16 10/09/16 10/10/16 15:00 23:00 07:00 Intake Total 520 ml Output Total 420 ml Balance 100 ml Results/Medications Results 24 hrs Laboratory Tests Test 10/09/16 12:33 10/09/16 17:12 10/09/16 21:02 10/10/16 08:55 Bedside Glucose 159 135 170 277 H Medications Current Medications Acetaminophen (Tylenol Supp) 650 mg Q6H PRN [place] PAIN LEVEL 1-3 OR FEVER; Start 09/30/16 at 19:00 Acetaminophen (Tylenol Tab) 650 mg Q6H PRN PO PAIN LEVEL 1-3 OR FEVER; Start at 19:00 Aspirin (Halfprin) 81 mg DAILY PO Last administered on 10/10/16 08:58; Admin Dose 81 MG; Start 10/01/16 at 09:00 Atorvastatin Calcium (Lipitor) 80 mg DAILY@21 PO Last administered on 10/09/16 21:17; Admin Dose 80 MG; Start 09/30/16 at 21:00 Bisacodyl (Dulcolax) 5 mg DAILY PRN PO CONSTIPATION Last administered on 08:47; Admin Dose 5 MG; Start 09/30/16 at 19:00 Bisacodyl (Dulcolax Supp) 10 mg DAILY PRN [place] CONSTIPATION Last administered on 10/06/16 20:32; Admin Dose 10 MG; Start 09/30/16 at 19:00 Clopidogrel Bisulfate (plaVIX) 75 mg DAILY PO Last administered on 10/10/16 08: 57; Admin Dose 75 MG; Start 10/01/16 at 09:00 Cyclosporine (Restasis) 1 drop Q12 BOTH EYES Last administered on 10/10/16 08: 57; Admin Dose 1 DROP; Start 09/30/16 at 21:00 Docusate Sodium (Colace) 100 mg Q12H PRN PO CONSTIPATION Last administered on 08:42; Admin Dose 100 MG; Start 09/30/16 at 19:00 Enoxaparin Sodium (Lovenox) 30 mg DAILY SC Last administered on 10/10/16 09:03 ; Admin Dose 30 MG; Start 10/01/16 at 09:00 Famotidine (Pepcid) 20 mg QHS PO Last administered on 10/09/16 21:16; Admin Dose 20 MG; Start 09/30/16 at 21:00 Gabapentin (Neurontin) 100 mg BID PO Last administered on 10/10/16 08:57; Admin Dose 100 MG; Start 09/30/16 at 21:00 Hydralazine HCl (Apresoline) 10 mg Q6H PRN IV ELEVATED BP SBP>160 Last administered on 10/08/16 08:48; Admin Dose 10 MG; Start 09/30/16 at 19:00 Acetaminophen/ Hydrocodone Bitart ([place] (5/325)) 1 tab Q6H PRN PO MODERATE PAIN LEVEL 4-6 Last administered on 10/03/16 12:29; Admin Dose 1 TAB; Start at 19:00 Metoprolol Succinate (Toprol Xl) 50 mg BID PO Last administered on 10/10/16 09: 09; Admin Dose 50 MG; Start 09/30/16 at 21:00 Morphine Sulfate (morphine) 2 mg Q4H PRN IV SEVERE PAIN LEVEL 7-10; Start 09/30 at 19:00 Ondansetron HCl (Zofran Inj) 4 mg Q6H PRN IV NAUSEA AND/OR VOMITING; Start at 19:00 Solifenacin (Vesicare) 5 mg DAILY PO Last administered on 10/10/16 08:58; Admin Dose 5 MG; Start 10/01/16 at 09:00 Docusate Sodium (Colace) 100 mg BID PO Last administered on 10/10/16 08:57; Admin Dose 100 MG; Start 09/30/16 at 21:00 Senna (Senokot) 1 tab HS PO Last administered on 10/09/16 21:15; Admin Dose 1 TAB; Start 09/30/16 at 21:00 Magnesium Hydroxide (Milk Of Mag) 30 ml BID PRN PO CONSTIPATION; Start at 19:30 Lactulose (Enulose) 20 gm DAILY PRN PO CONSTIPATION Last administered on 08:41; Admin Dose 20 GM; Start 09/30/16 at 19:30 Miscellaneous Information 1 ea NOTE XX ; Start 09/30/16 at 19:30 Glucose (Glutose) 15 gm Q15M PRN PO DECREASED GLUCOSE; Start 09/30/16 at 19:30 Glucose (Glutose) 22.5 gm Q15M PRN PO DECREASED GLUCOSE; Start 09/30/16 at 19: 30 Dextrose (D50w Syringe) 25 ml Q15M PRN IV DECREASED GLUCOSE; Start 09/30/16 at 19:30 Dextrose (D50w Syringe) 50 ml Q15M PRN IV DECREASED GLUCOSE Last administered on 10/02/16 17:12; Admin Dose 50 ML; Start 09/30/16 at 19:30 Glucagon (Glucagen) 1 mg Q15M PRN IM DECREASED GLUCOSE; Start 09/30/16 at 19:30 Glucose (Glutose) 15 gm Q15M PRN BUCCAL DECREASED GLUCOSE; Start 09/30/16 at 19 :30 Patient Own Medication 1 ea DAILY BOTH EYES Last administered on 10/10/16 08:57 ; Admin Dose 1 EA; Start 10/03/16 at 12:00 Linagliptin (Tradjenta) 5 mg DAILY PO Last administered on 10/10/16 08:58; Admin Dose 5 MG; Start 10/07/16 at 09:00 Sodium Biphosphate/ Sodium Phosphate (Fleet Enema) 133 ml DAILY PRN [place] CONSTIPATION; Start 10/07/16 at 10:00 Polyethylene Glycol (Miralax) 17 gm DAILY PRN PO CONSTIPATION; Start 10/07/16 at 11:00 Insulin Glargine (Lantus) 42 unit DAILY SC Last administered on 10/10/16 09:02 ; Admin Dose 42 UNIT; Start 10/09/16 at 09:00 Assessment/Plan Additional Assessment/Plan Rehab- Toxic Met Enceph/recent CVA Improvng OOb activities, continue rehab. Dysphagia- speech therapy Renal- A/CKD; uremia/UTI HTN DM2 hypothyroidism L1 comp fx SHADY FREEMAN MD October 10, 2016 11:25
--- NOTE | 2016-10-10 14:37 | CONS ---
Date/Time of Note Date/Time of Note DATE: 10/10/16 TIME: 14:36 Assessment/Plan Assessment/Plan Problems: (1) Diabetes mellitus type 2 in obese Status: Chronic Comment: Her control has been good over his drifted up today. I will make some adjustments in her insulin regimen to follow along closely. Consultation Date/Type/Reason Admit Date/Time Sep 30, 2016 at 17:35 Initial Consult Date 10/07/16 Type of Consultation: Endocrinology Referring Provider: SOC[facility] GARBER MD, [facility] HR Interval Summary Constitutional: no complaints Exam/Review of Systems Vital Signs Vitals Vital Signs Date Time Temp Pulse Resp B/P Pulse Ox O2 Delivery O2 Flow Rate FiO2 10/10/16 09:02 98.0 77 18 122/56 94 Intake and Output 10/09/16 10/09/16 10/10/16 15:00 23:00 07:00 Intake Total 520 ml Output Total 420 ml Balance 100 ml Exam Constitutional: alert Neck: non-tender, supple Respiratory: clear to auscultation, normal air movement Results Results 24 hrs Laboratory Tests Test 10/09/16 17:12 10/09/16 21:02 10/10/16 08:55 10/10/16 12:20 Bedside Glucose 135 170 277 H 253 H Medications Medications Current Medications Acetaminophen (Tylenol Supp) 650 mg Q6H PRN [place] PAIN LEVEL 1-3 OR FEVER; Start 09/30/16 at 19:00 Acetaminophen (Tylenol Tab) 650 mg Q6H PRN PO PAIN LEVEL 1-3 OR FEVER; Start at 19:00 Aspirin (Halfprin) 81 mg DAILY PO Last administered on 10/10/16 08:58; Admin Dose 81 MG; Start 10/01/16 at 09:00 Atorvastatin Calcium (Lipitor) 80 mg DAILY@21 PO Last administered on 10/09/16 21:17; Admin Dose 80 MG; Start 09/30/16 at 21:00 Bisacodyl (Dulcolax) 5 mg DAILY PRN PO CONSTIPATION Last administered on 08:47; Admin Dose 5 MG; Start 09/30/16 at 19:00 Bisacodyl (Dulcolax Supp) 10 mg DAILY PRN [place] CONSTIPATION Last administered on 10/06/16 20:32; Admin Dose 10 MG; Start 09/30/16 at 19:00 Clopidogrel Bisulfate (plaVIX) 75 mg DAILY PO Last administered on 10/10/16 08: 57; Admin Dose 75 MG; Start 10/01/16 at 09:00 Cyclosporine (Restasis) 1 drop Q12 BOTH EYES Last administered on 10/10/16 08: 57; Admin Dose 1 DROP; Start 09/30/16 at 21:00 Docusate Sodium (Colace) 100 mg Q12H PRN PO CONSTIPATION Last administered on 08:42; Admin Dose 100 MG; Start 09/30/16 at 19:00 Enoxaparin Sodium (Lovenox) 30 mg DAILY SC Last administered on 10/10/16 09:03 ; Admin Dose 30 MG; Start 10/01/16 at 09:00 Famotidine (Pepcid) 20 mg QHS PO Last administered on 10/09/16 21:16; Admin Dose 20 MG; Start 09/30/16 at 21:00 Gabapentin (Neurontin) 100 mg BID PO Last administered on 10/10/16 08:57; Admin Dose 100 MG; Start 09/30/16 at 21:00 Hydralazine HCl (Apresoline) 10 mg Q6H PRN IV ELEVATED BP SBP>160 Last administered on 10/08/16 08:48; Admin Dose 10 MG; Start 09/30/16 at 19:00 Acetaminophen/ Hydrocodone Bitart ([place] (5/325)) 1 tab Q6H PRN PO MODERATE PAIN LEVEL 4-6 Last administered on 10/03/16 12:29; Admin Dose 1 TAB; Start at 19:00 Metoprolol Succinate (Toprol Xl) 50 mg BID PO Last administered on 10/10/16 09: 09; Admin Dose 50 MG; Start 09/30/16 at 21:00 Morphine Sulfate (morphine) 2 mg Q4H PRN IV SEVERE PAIN LEVEL 7-10; Start 09/30 at 19:00 Ondansetron HCl (Zofran Inj) 4 mg Q6H PRN IV NAUSEA AND/OR VOMITING; Start at 19:00 Solifenacin (Vesicare) 5 mg DAILY PO Last administered on 10/10/16 08:58; Admin Dose 5 MG; Start 10/01/16 at 09:00 Docusate Sodium (Colace) 100 mg BID PO Last administered on 10/10/16 08:57; Admin Dose 100 MG; Start 09/30/16 at 21:00 Senna (Senokot) 1 tab HS PO Last administered on 10/09/16 21:15; Admin Dose 1 TAB; Start 09/30/16 at 21:00 Magnesium Hydroxide (Milk Of Mag) 30 ml BID PRN PO CONSTIPATION; Start at 19:30 Lactulose (Enulose) 20 gm DAILY PRN PO CONSTIPATION Last administered on 08:41; Admin Dose 20 GM; Start 09/30/16 at 19:30 Miscellaneous Information 1 ea NOTE XX ; Start 09/30/16 at 19:30 Glucose (Glutose) 15 gm Q15M PRN PO DECREASED GLUCOSE; Start 09/30/16 at 19:30 Glucose (Glutose) 22.5 gm Q15M PRN PO DECREASED GLUCOSE; Start 09/30/16 at 19: 30 Dextrose (D50w Syringe) 25 ml Q15M PRN IV DECREASED GLUCOSE; Start 09/30/16 at 19:30 Dextrose (D50w Syringe) 50 ml Q15M PRN IV DECREASED GLUCOSE Last administered on 10/02/16 17:12; Admin Dose 50 ML; Start 09/30/16 at 19:30 Glucagon (Glucagen) 1 mg Q15M PRN IM DECREASED GLUCOSE; Start 09/30/16 at 19:30 Glucose (Glutose) 15 gm Q15M PRN BUCCAL DECREASED GLUCOSE; Start 09/30/16 at 19 :30 Patient Own Medication 1 ea DAILY BOTH EYES Last administered on 10/10/16 08:57 ; Admin Dose 1 EA; Start 10/03/16 at 12:00 Linagliptin (Tradjenta) 5 mg DAILY PO Last administered on 10/10/16 08:58; Admin Dose 5 MG; Start 10/07/16 at 09:00 Sodium Biphosphate/ Sodium Phosphate (Fleet Enema) 133 ml DAILY PRN [place] CONSTIPATION; Start 10/07/16 at 10:00 Polyethylene Glycol (Miralax) 17 gm DAILY PRN PO CONSTIPATION; Start 10/07/16 at 11:00 Insulin Glargine (Lantus) 42 unit DAILY SC Last administered on 10/10/16t 09:02 ; Admin Dose 42 UNIT; Start 10/09/16 at 09:00 RIKA POWERS MD October 10, 2016 14:37
--- NOTE | 2016-10-10 16:11 | CONS ---
Date/Time of Note Date/Time of Note DATE: 10/10/16 TIME: 16:05 Consult Date/Type/Reason Admit Date/Time Sep 30, 2016 at 17:35 Type of Consultation: Endocrinology Ordering Provider: SOCORRO GARBER [facility], [facility] Subjective comfortable, still having erratic blood sugar control/ Objective Vital Signs Date Time Temp Pulse Resp B/P Pulse Ox O2 Delivery O2 Flow Rate FiO2 10/10/16 09:02 98.0 77 18 122/56 94 Intake and Output 10/09/16 10/09/16 10/10/16 15:00 23:00 07:00 Intake Total 520 ml Output Total 420 ml Balance 100 ml Exam PHYSICAL EXAMINATION: GENERAL: Elderly-appearing lady, comfortable at rest, NECK: Supple. No JVD or lymphadenopathy. CARDIAC: S1, S2, no added sounds or murmurs. CHEST: Diminished air entry bilaterally. ABDOMEN: Soft, nontender. No guarding or rebound. EXTREMITIES: No cyanosis, clubbing, 1+ edema. NEUROLOGIC: Generalized weakness. Results/Medications Results 24 hrs Laboratory Tests Test 10/09/16 17:12 10/09/16 21:02 10/10/16 08:55 10/10/16 12:20 Bedside Glucose 135 170 277 H 253 H Medications Current Medications Acetaminophen (Tylenol Supp) 650 mg Q6H PRN [place] PAIN LEVEL 1-3 OR FEVER; Start 09/30/16 at 19:00 Acetaminophen (Tylenol Tab) 650 mg Q6H PRN PO PAIN LEVEL 1-3 OR FEVER; Start at 19:00 Aspirin (Halfprin) 81 mg DAILY PO Last administered on 10/10/16 08:58; Admin Dose 81 MG; Start 10/01/16 at 09:00 Atorvastatin Calcium (Lipitor) 80 mg DAILY@21 PO Last administered on 10/09/16 21:17; Admin Dose 80 MG; Start 09/30/16 at 21:00 Bisacodyl (Dulcolax) 5 mg DAILY PRN PO CONSTIPATION Last administered on 08:47; Admin Dose 5 MG; Start 09/30/16 at 19:00 Bisacodyl (Dulcolax Supp) 10 mg DAILY PRN [place] CONSTIPATION Last administered on 10/06/16 20:32; Admin Dose 10 MG; Start 09/30/16 at 19:00 Clopidogrel Bisulfate (plaVIX) 75 mg DAILY PO Last administered on 10/10/16 08: 57; Admin Dose 75 MG; Start 10/01/16 at 09:00 Cyclosporine (Restasis) 1 drop Q12 BOTH EYES Last administered on 10/10/16 08: 57; Admin Dose 1 DROP; Start 09/30/16 at 21:00 Docusate Sodium (Colace) 100 mg Q12H PRN PO CONSTIPATION Last administered on 08:42; Admin Dose 100 MG; Start 09/30/16 at 19:00 Enoxaparin Sodium (Lovenox) 30 mg DAILY SC Last administered on 10/10/16 09:03 ; Admin Dose 30 MG; Start 10/01/16 at 09:00 Famotidine (Pepcid) 20 mg QHS PO Last administered on 10/09/16 21:16; Admin Dose 20 MG; Start 09/30/16 at 21:00 Gabapentin (Neurontin) 100 mg BID PO Last administered on 10/10/16 08:57; Admin Dose 100 MG; Start 09/30/16 at 21:00 Hydralazine HCl (Apresoline) 10 mg Q6H PRN IV ELEVATED BP SBP>160 Last administered on 10/08/16 08:48; Admin Dose 10 MG; Start 09/30/16 at 19:00 Acetaminophen/ Hydrocodone Bitart ([place] (5/325)) 1 tab Q6H PRN PO MODERATE PAIN LEVEL 4-6 Last administered on 10/03/16 12:29; Admin Dose 1 TAB; Start at 19:00 Metoprolol Succinate (Toprol Xl) 50 mg BID PO Last administered on 10/10/16 09: 09; Admin Dose 50 MG; Start 09/30/16 at 21:00 Morphine Sulfate (morphine) 2 mg Q4H PRN IV SEVERE PAIN LEVEL 7-10; Start 09/30 at 19:00 Ondansetron HCl (Zofran Inj) 4 mg Q6H PRN IV NAUSEA AND/OR VOMITING; Start at 19:00 Solifenacin (Vesicare) 5 mg DAILY PO Last administered on 10/10/16 08:58; Admin Dose 5 MG; Start 10/01/16 at 09:00 Docusate Sodium (Colace) 100 mg BID PO Last administered on 10/10/16 08:57; Admin Dose 100 MG; Start 09/30/16 at 21:00 Senna (Senokot) 1 tab HS PO Last administered on 10/09/16 21:15; Admin Dose 1 TAB; Start 09/30/16 at 21:00 Magnesium Hydroxide (Milk Of Mag) 30 ml BID PRN PO CONSTIPATION; Start at 19:30 Lactulose (Enulose) 20 gm DAILY PRN PO CONSTIPATION Last administered on 08:41; Admin Dose 20 GM; Start 09/30/16 at 19:30 Miscellaneous Information 1 ea NOTE XX ; Start 09/30/16 at 19:30 Glucose (Glutose) 15 gm Q15M PRN PO DECREASED GLUCOSE; Start 09/30/16 at 19:30 Glucose (Glutose) 22.5 gm Q15M PRN PO DECREASED GLUCOSE; Start 09/30/16 at 19: 30 Dextrose (D50w Syringe) 25 ml Q15M PRN IV DECREASED GLUCOSE; Start 09/30/16 at 19:30 Dextrose (D50w Syringe) 50 ml Q15M PRN IV DECREASED GLUCOSE Last administered on 10/02/16 17:12; Admin Dose 50 ML; Start 09/30/16 at 19:30 Glucagon (Glucagen) 1 mg Q15M PRN IM DECREASED GLUCOSE; Start 09/30/16 at 19:30 Glucose (Glutose) 15 gm Q15M PRN BUCCAL DECREASED GLUCOSE; Start 09/30/16 at 19 :30 Patient Own Medication 1 ea DAILY BOTH EYES Last administered on 10/10/16 08:57 ; Admin Dose 1 EA; Start 10/03/16 at 12:00 Linagliptin (Tradjenta) 5 mg DAILY PO Last administered on 10/10/16 08:58; Admin Dose 5 MG; Start 10/07/16 at 09:00 Sodium Biphosphate/ Sodium Phosphate (Fleet Enema) 133 ml DAILY PRN [place] CONSTIPATION; Start 10/07/16 at 10:00 Polyethylene Glycol (Miralax) 17 gm DAILY PRN PO CONSTIPATION; Start 10/07/16 at 11:00 Insulin Glargine (Lantus) 44 unit DAILY SC ; Start 10/11/16 at 09:00 Assessment/Plan Chief Complaint/Hosp Course IMPRESSION: 1. Recent cerebrovascular accident. 2. Resolved, poorly controlled encephalopathy. 3. L1 compression fractures, likely cause of her low back pain. 4. History of insulin-dependent diabetes poorly controlled 5. Essential hypertension. PLAN: 1. The patient is to continue with current medications including Lovenox and Plavix. 2. Endocrinology recommendations appreciated. 3. Continue antihypertensives. 4. DVT and GI prophylaxis. 5. Physical therapy and speech therapy recommendations. Problems: SOCORRO GARBER MD, [facility] October 10, 2016 16:11
[2016-10-10] MEDS: metFORMIN 500 MG TAB PO SCH (17:29)
[2016-10-10 20:00] VITALS: BP 135/62; RESP 18
[2016-10-10] MEDS: ATORVASTATIN 80 MG TAB PO SCH (21:15)
[2016-10-10] MEDS: FAMOTIDINE 20 MG TAB PO SCH (21:15)
[2016-10-10] MEDS: SENNA TAB PO SCH (21:15)
[2016-10-10] MEDS: DEXTROSE 50% 50 ML SYRINGE IV PRN (23:24)
[2016-10-11 02:30] VITALS: BP 112/52; PULSE 68; RESP 18
[2016-10-11 07:50] VITALS: BP 149/66; RESP 20
[2016-10-11] MEDS: INSULIN ASPART [NOVOLOG] 3 ML PEN SC SCH ×7 (08:37→21:00)
[2016-10-11] MEDS ORDERED: INSULIN GLARGINE [LANtus] 3 ML PEN SC SCH (09:00)
[2016-10-11] MEDS: INSULIN GLARGINE [LANtus] 3 ML PEN SC SCH (09:34)
[2016-10-11] MEDS: ENOXAPARIN 30 MG/0.3 ML SYG SC SCH (09:35)
[2016-10-11] MEDS: DOCUSATE SODIUM 100 MG CAP PO SCH ×2 (09:38→21:00)
[2016-10-11] MEDS: LINAGLIPTIN 5 MG TABLET PO SCH (09:38)
[2016-10-11] MEDS: GABAPENTIN 100 MG CAP PO SCH ×2 (09:38→21:21)
[2016-10-11] MEDS: SOLIFENACIN 5 MG TAB PO SCH (09:38)
[2016-10-11] MEDS: METOPROLOL (XL) 50 MG TAB PO SCH ×2 (09:38→21:24)
[2016-10-11] MEDS: EYE BOTH EYES SCH (09:39)
[2016-10-11] MEDS: CYCLOSPORINE 0.05% OPH DROPERETTE BOTH EYES SCH ×2 (09:39→21:21)
[2016-10-11] MEDS: ASPIRIN (EC) 81 MG TAB PO SCH (09:39)
[2016-10-11] MEDS: CLOPIDOGREL 75 MG TAB PO SCH (09:39)
[2016-10-11] MEDS: PAZEO BOTH EYES SCH (09:39)
--- NOTE | 2016-10-11 09:46 | CONS ---
Date/Time of Note Date/Time of Note DATE: 10/11/16 TIME: 09:45 Consult Date/Type/Reason Admit Date/Time Sep 30, 2016 at 17:35 Type of Consultation: Endocrinology Ordering Provider: SOCORRO GARBER MD, [facility] Subjective Comfortable Objective pulm-cta [id number] Vital Signs Date Time Temp Pulse Resp B/P Pulse Ox O2 Delivery O2 Flow Rate FiO2 10/11/16 07:50 98.1 79 20 149/66 96 Intake and Output 10/10/16 10/10/16 10/11/16 15:00 23:00 07:00 Intake Total 720 ml 360 ml Output Total 1000 ml 400 ml Balance -280 ml -40 ml Results/Medications Results 24 hrs Laboratory Tests Test 10/10/16 12:20 10/10/16 16:58 10/10/16 21:28 10/10/16 23:16 Bedside Glucose 253 H 98 70 52 L Test 10/10/16 23:41 10/11/16 00:04 10/11/16 02:59 10/11/16 07:55 Bedside Glucose 180 143 152 187 Medications Current Medications Acetaminophen (Tylenol Supp) 650 mg Q6H PRN [place] PAIN LEVEL 1-3 OR FEVER; Start 09/30/16 at 19:00 Acetaminophen (Tylenol Tab) 650 mg Q6H PRN PO PAIN LEVEL 1-3 OR FEVER; Start at 19:00 Aspirin (Halfprin) 81 mg DAILY PO Last administered on 10/11/16 09:39; Admin Dose 81 MG; Start 10/01/16 at 09:00 Atorvastatin Calcium (Lipitor) 80 mg DAILY@21 PO Last administered on 10/10/16 21:15; Admin Dose 80 MG; Start 09/30/16 at 21:00 Bisacodyl (Dulcolax) 5 mg DAILY PRN PO CONSTIPATION Last administered on 08:47; Admin Dose 5 MG; Start 09/30/16 at 19:00 Bisacodyl (Dulcolax Supp) 10 mg DAILY PRN [place] CONSTIPATION Last administered on 10/06/16 20:32; Admin Dose 10 MG; Start 09/30/16 at 19:00 Clopidogrel Bisulfate (plaVIX) 75 mg DAILY PO Last administered on 10/11/16 09: 39; Admin Dose 75 MG; Start 10/01/16 at 09:00 Docusate Sodium (Colace) 100 mg Q12H PRN PO CONSTIPATION Last administered on 08:42; Admin Dose 100 MG; Start 09/30/16 at 19:00 Enoxaparin Sodium (Lovenox) 30 mg DAILY SC Last administered on 10/11/16 09:35 ; Admin Dose 30 MG; Start 10/01/16 at 09:00 Famotidine (Pepcid) 20 mg QHS PO Last administered on 10/10/16 21:15; Admin Dose 20 MG; Start 09/30/16 at 21:00 Gabapentin (Neurontin) 100 mg BID PO Last administered on 10/11/16 09:38; Admin Dose 100 MG; Start 09/30/16 at 21:00 Hydralazine HCl (Apresoline) 10 mg Q6H PRN IV ELEVATED BP SBP>160 Last administered on 10/08/16 08:48; Admin Dose 10 MG; Start 09/30/16 at 19:00 Acetaminophen/ Hydrocodone Bitart ([place] (5/325)) 1 tab Q6H PRN PO MODERATE PAIN LEVEL 4-6 Last administered on 10/03/16 12:29; Admin Dose 1 TAB; Start at 19:00 Metoprolol Succinate (Toprol Xl) 50 mg BID PO Last administered on 10/11/16 09: 38; Admin Dose 50 MG; Start 09/30/16 at 21:00 Morphine Sulfate (morphine) 2 mg Q4H PRN IV SEVERE PAIN LEVEL 7-10; Start 09/30 at 19:00 Ondansetron HCl (Zofran Inj) 4 mg Q6H PRN IV NAUSEA AND/OR VOMITING; Start at 19:00 Solifenacin (Vesicare) 5 mg DAILY PO Last administered on 10/11/16 09:38; Admin Dose 5 MG; Start 10/01/16 at 09:00 Docusate Sodium (Colace) 100 mg BID PO Last administered on 10/11/16 09:38; Admin Dose 100 MG; Start 09/30/16 at 21:00 Senna (Senokot) 1 tab HS PO Last administered on 10/10/16 21:15; Admin Dose 1 TAB; Start 09/30/16 at 21:00 Magnesium Hydroxide (Milk Of Mag) 30 ml BID PRN PO CONSTIPATION; Start at 19:30 Lactulose (Enulose) 20 gm DAILY PRN PO CONSTIPATION Last administered on 08:41; Admin Dose 20 GM; Start 09/30/16 at 19:30 Miscellaneous Information 1 ea NOTE XX ; Start 09/30/16 at 19:30 Glucose (Glutose) 15 gm Q15M PRN PO DECREASED GLUCOSE; Start 09/30/16 at 19:30 Glucose (Glutose) 22.5 gm Q15M PRN PO DECREASED GLUCOSE; Start 09/30/16 at 19: 30 Dextrose (D50w Syringe) 25 ml Q15M PRN IV DECREASED GLUCOSE; Start 09/30/16 at 19:30 Dextrose (D50w Syringe) 50 ml Q15M PRN IV DECREASED GLUCOSE Last administered on 10/10/16 23:24; Admin Dose 50 ML; Start 09/30/16 at 19:30 Glucagon (Glucagen) 1 mg Q15M PRN IM DECREASED GLUCOSE; Start 09/30/16 at 19:30 Glucose (Glutose) 15 gm Q15M PRN BUCCAL DECREASED GLUCOSE; Start 09/30/16 at 19 :30 Patient Own Medication 1 ea DAILY BOTH EYES Last administered on 10/11/16 09:39 ; Admin Dose 1 EA; Start 10/03/16 at 12:00 Linagliptin (Tradjenta) 5 mg DAILY PO Last administered on 10/11/16 09:38; Admin Dose 5 MG; Start 10/07/16 at 09:00 Sodium Biphosphate/ Sodium Phosphate (Fleet Enema) 133 ml DAILY PRN [place] CONSTIPATION; Start 10/07/16 at 10:00 Polyethylene Glycol (Miralax) 17 gm DAILY PRN PO CONSTIPATION; Start 10/07/16 at 11:00 Insulin Glargine (Lantus) 44 unit DAILY SC Last administered on 10/11/16 09:34 ; Admin Dose 44 UNIT; Start 10/11/16 at 09:00 Cyclosporine (Restasis) 1 drop Q12 BOTH EYES Last administered on 10/11/16 09: 39; Admin Dose 1 DROP; Start 10/11/16 at 09:00 Assessment/Plan Additional Assessment/Plan Rehab- Toxic Met Enceph/recent CVA continue rehab program Dysphagia- speech therapy Renal- A/CKD; uremia/UTI HTN DM2 hypothyroidism L1 comp fx SHADY FREEMAN MD October 11, 2016 09:46
--- NOTE | 2016-10-11 11:24 | CONS ---
Date/Time of Note Date/Time of Note DATE: 10/11/16 TIME: 11:22 Consult Date/Type/Reason Admit Date/Time Sep 30, 2016 at 17:35 Type of Consultation: pulmonary Ordering Provider: SOC[facility] GARBER MD, [facility] Subjective Patient comfortable this morning no new events Objective Vital Signs Date Time Temp Pulse Resp B/P Pulse Ox O2 Delivery O2 Flow Rate FiO2 10/11/16 07:50 98.1 79 20 149/66 96 Intake and Output 10/10/16 10/10/16 10/11/16 15:00 23:00 07:00 Intake Total 720 ml 360 ml Output Total 1000 ml 400 ml Balance -280 ml -40 ml Exam PHYSICAL EXAMINATION: GENERAL: Elderly-appearing lady, comfortable at rest, NECK: Supple. No JVD or lymphadenopathy. CARDIAC: S1, S2, no added sounds or murmurs. CHEST: Diminished air entry bilaterally. ABDOMEN: Soft, nontender. No guarding or rebound. EXTREMITIES: No cyanosis, clubbing, 1+ edema. NEUROLOGIC: Generalized weakness. Results/Medications Results 24 hrs Laboratory Tests Test 10/10/16 12:20 10/10/16 16:58 10/10/16 21:28 10/10/16 23:16 Bedside Glucose 253 H 98 70 52 L Test 10/10/16 23:41 10/11/16 00:04 10/11/16 02:59 10/11/16 07:55 Bedside Glucose 180 143 152 187 Medications Current Medications Acetaminophen (Tylenol Supp) 650 mg Q6H PRN [place] PAIN LEVEL 1-3 OR FEVER; Start 09/30/16 at 19:00 Acetaminophen (Tylenol Tab) 650 mg Q6H PRN PO PAIN LEVEL 1-3 OR FEVER; Start at 19:00 Aspirin (Halfprin) 81 mg DAILY PO Last administered on 10/11/16 09:39; Admin Dose 81 MG; Start 10/01/16 at 09:00 Atorvastatin Calcium (Lipitor) 80 mg DAILY@21 PO Last administered on 10/10/16 21:15; Admin Dose 80 MG; Start 09/30/16 at 21:00 Bisacodyl (Dulcolax) 5 mg DAILY PRN PO CONSTIPATION Last administered on 08:47; Admin Dose 5 MG; Start 09/30/16 at 19:00 Bisacodyl (Dulcolax Supp) 10 mg DAILY PRN [place] CONSTIPATION Last administered on 10/06/16 20:32; Admin Dose 10 MG; Start 09/30/16 at 19:00 Clopidogrel Bisulfate (plaVIX) 75 mg DAILY PO Last administered on 10/11/16 09: 39; Admin Dose 75 MG; Start 10/01/16 at 09:00 Docusate Sodium (Colace) 100 mg Q12H PRN PO CONSTIPATION Last administered on 08:42; Admin Dose 100 MG; Start 09/30/16 at 19:00 Enoxaparin Sodium (Lovenox) 30 mg DAILY SC Last administered on 10/11/16 09:35 ; Admin Dose 30 MG; Start 10/01/16 at 09:00 Famotidine (Pepcid) 20 mg QHS PO Last administered on 10/10/16 21:15; Admin Dose 20 MG; Start 09/30/16 at 21:00 Gabapentin (Neurontin) 100 mg BID PO Last administered on 10/11/16 09:38; Admin Dose 100 MG; Start 09/30/16 at 21:00 Hydralazine HCl (Apresoline) 10 mg Q6H PRN IV ELEVATED BP SBP>160 Last administered on 10/08/16 08:48; Admin Dose 10 MG; Start 09/30/16 at 19:00 Acetaminophen/ Hydrocodone Bitart ([place] (5/325)) 1 tab Q6H PRN PO MODERATE PAIN LEVEL 4-6 Last administered on 10/03/16 12:29; Admin Dose 1 TAB; Start at 19:00 Metoprolol Succinate (Toprol Xl) 50 mg BID PO Last administered on 10/11/16 09: 38; Admin Dose 50 MG; Start 09/30/16 at 21:00 Morphine Sulfate (morphine) 2 mg Q4H PRN IV SEVERE PAIN LEVEL 7-10; Start 09/30 at 19:00 Ondansetron HCl (Zofran Inj) 4 mg Q6H PRN IV NAUSEA AND/OR VOMITING; Start at 19:00 Solifenacin (Vesicare) 5 mg DAILY PO Last administered on 10/11/16 09:38; Admin Dose 5 MG; Start 10/01/16 at 09:00 Docusate Sodium (Colace) 100 mg BID PO Last administered on 10/11/16 09:38; Admin Dose 100 MG; Start 09/30/16 at 21:00 Senna (Senokot) 1 tab HS PO Last administered on 10/10/16 21:15; Admin Dose 1 TAB; Start 09/30/16 at 21:00 Magnesium Hydroxide (Milk Of Mag) 30 ml BID PRN PO CONSTIPATION; Start at 19:30 Lactulose (Enulose) 20 gm DAILY PRN PO CONSTIPATION Last administered on 08:41; Admin Dose 20 GM; Start 09/30/16 at 19:30 Miscellaneous Information 1 ea NOTE XX ; Start 09/30/16 at 19:30 Glucose (Glutose) 15 gm Q15M PRN PO DECREASED GLUCOSE; Start 09/30/16 at 19:30 Glucose (Glutose) 22.5 gm Q15M PRN PO DECREASED GLUCOSE; Start 09/30/16 at 19: 30 Dextrose (D50w Syringe) 25 ml Q15M PRN IV DECREASED GLUCOSE; Start 09/30/16 at 19:30 Dextrose (D50w Syringe) 50 ml Q15M PRN IV DECREASED GLUCOSE Last administered on 10/10/16 23:24; Admin Dose 50 ML; Start 09/30/16 at 19:30 Glucagon (Glucagen) 1 mg Q15M PRN IM DECREASED GLUCOSE; Start 09/30/16 at 19:30 Glucose (Glutose) 15 gm Q15M PRN BUCCAL DECREASED GLUCOSE; Start 09/30/16 at 19 :30 Patient Own Medication 1 ea DAILY BOTH EYES Last administered on 10/11/16 09:39 ; Admin Dose 1 EA; Start 10/03/16 at 12:00 Linagliptin (Tradjenta) 5 mg DAILY PO Last administered on 10/11/16 09:38; Admin Dose 5 MG; Start 10/07/16 at 09:00 Sodium Biphosphate/ Sodium Phosphate (Fleet Enema) 133 ml DAILY PRN [place] CONSTIPATION; Start 10/07/16 at 10:00 Polyethylene Glycol (Miralax) 17 gm DAILY PRN PO CONSTIPATION; Start 10/07/16 at 11:00 Insulin Glargine (Lantus) 44 unit DAILY SC Last administered on 10/11/16 09:34 ; Admin Dose 44 UNIT; Start 10/11/16 at 09:00 Cyclosporine (Restasis) 1 drop Q12 BOTH EYES Last administered on 10/11/16 09: 39; Admin Dose 1 DROP; Start 10/11/16 at 09:00 Assessment/Plan Chief Complaint/Hosp Course IMPRESSION: 1. Recent cerebrovascular accident. 2. Resolved, encephalopathy 3. L1 compression fractures, likely cause of her low back pain. 4. History of insulin-dependent diabetes poorly controlled 5. Essential hypertension. PLAN: 1. Continue physical therapy 2. Endocrinology recommendations appreciated. 3. Continue antihypertensives. 4. DVT and GI prophylaxis. 5. Repeat baseline labs Problems: SOCORRO GARBER MD, [facility] October 11, 2016 11:24
[2016-10-11] MEDS: GLUCOSE GEL 15 GRAM TUBE BUCCAL PRN ×2 (17:23→17:38)
[2016-10-11] MEDS: metFORMIN 500 MG TAB PO SCH (18:01)
[2016-10-11 19:39] VITALS: BP 136/63; RESP 19
[2016-10-11] MEDS: SENNA TAB PO SCH (21:00)
[2016-10-11] MEDS: ATORVASTATIN 80 MG TAB PO SCH (21:21)
[2016-10-11] MEDS: FAMOTIDINE 20 MG TAB PO SCH (21:22)
[2016-10-12 07:12] LABS: ADD SCAN DIFF NO
[2016-10-12 07:17] LABS: BASOPHILS % 0.5 % (0.0-2.0); EOSINOPHILS # 0.4 10^3/ul (0.0-0.5); EOSINOPHILS % 5.9 % (0.0-7.0); HEMATOCRIT 33.2 % (37.0-47.0); HEMOGLOBIN 10.8 g/dl (12.0-16.0); LYMPHOCYTES # 1.8 10^3/ul (0.8-2.9); LYMPHOCYTES % 29.7 % (15.0-51.0); MEAN CORPUSCULAR HEMOGLOBIN 28.6 pg (29.0-33.0); MEAN CORPUSCULAR HGB CONC 32.5 g/dl (32.0-37.0); MEAN CORPUSCULAR VOLUME 87.8 fl (82.0-101.0); MEAN PLATELET VOLUME 9.7 fl (7.4-10.4); MONOCYTE # 0.7 10^3/ul (0.3-0.9); NEUTROPHIL # 3.1 10^3/ul (1.6-7.5); NEUTROPHILS % 52.6 % (39.0-77.0); PLATELET COUNT 293 10^3/UL (140-415); RED BLOOD COUNT 3.78 10^6/ul (4.20-5.40); RED CELL DISTRIBUTION WIDTH 14.1 % (11.5-14.5); WHITE BLOOD COUNT 5.9 10^3/ul (4.8-10.8)
[2016-10-12 07:30] VITALS: BP 135/65; RESP 18
--- NOTE | 2016-10-12 07:31 | CONS ---
Date/Time of Note Date/Time of Note DATE: 10/12/16 TIME: 07:30 Assessment/Plan Assessment/Plan Problems: (1) Diabetes mellitus type 2 in obese Status: Chronic Comment: Patient had hypoglycemia yesterday. Will adjust the basal bolus regimen to accommodate. Consultation Date/Type/Reason Admit Date/Time Sep 30, 2016 at 17:35 Initial Consult Date 10/07/16 Type of Consultation: Endocrinology Reason for Consultation Diabetes mellitus type 2 Referring Provider: SOCORRO GARBER MD, [facility] 24 HR Interval Summary Constitutional: no complaints Exam/Review of Systems Vital Signs Vitals Vital Signs Date Time Temp Pulse Resp B/P Pulse Ox O2 Delivery O2 Flow Rate FiO2 10/11/16 19:39 97.4 80 19 136/63 95 Intake and Output 10/11/16 10/11/16 10/12/16 15:00 23:00 07:00 Intake Total 1650 ml Output Total 850 ml 600 ml 1600 ml Balance -850 ml 1050 ml -1600 ml Exam No changes Results Result Diagram: 10/12/16 0620 Results 24 hrs Laboratory Tests Test 10/11/16 07:55 10/11/16 11:53 10/11/16 17:16 10/11/16 17:36 Bedside Glucose 187 219 30 *L 53 L Test 10/11/16 17:56 10/11/16 18:38 10/11/16 18:55 10/11/16 20:09 Bedside Glucose 93 146 145 152 Test 10/11/16 23:53 10/12/16 06:20 Bedside Glucose 267 H White Blood Count 5.9 # Red Blood Count 3.78 L Hemoglobin 10.8 L Hematocrit 33.2 L Mean Corpuscular Volume 87.8 Mean Corpuscular Hemoglobin 28.6 L Mean Corpuscular Hemoglobin Concent 32.5 Red Cell Distribution Width 14.1 Platelet Count 293 Mean Platelet Volume 9.7 Neutrophils % 52.6 Lymphocytes % 29.7 Monocytes % 11.0 Eosinophils % 5.9 Basophils % 0.5 Nucleated Red Blood Cells % 0.0 Neutrophils # 3.1 Lymphocytes # 1.8 Monocytes # 0.7 Eosinophils # 0.4 Basophils # 0.0 Nucleated Red Blood Cells # 0.0 Medications Medications Current Medications Acetaminophen (Tylenol Supp) 650 mg Q6H PRN [place] PAIN LEVEL 1-3 OR FEVER; Start 09/30/16 at 19:00 Acetaminophen (Tylenol Tab) 650 mg Q6H PRN PO PAIN LEVEL 1-3 OR FEVER; Start at 19:00 Aspirin (Halfprin) 81 mg DAILY PO Last administered on 10/11/16 09:39; Admin Dose 81 MG; Start 10/01/16 at 09:00 Atorvastatin Calcium (Lipitor) 80 mg DAILY@21 PO Last administered on 10/11/16 21:21; Admin Dose 80 MG; Start 09/30/16 at 21:00 Bisacodyl (Dulcolax) 5 mg DAILY PRN PO CONSTIPATION Last administered on 08:47; Admin Dose 5 MG; Start 09/30/16 at 19:00 Bisacodyl (Dulcolax Supp) 10 mg DAILY PRN [place] CONSTIPATION Last administered on 10/06/16 20:32; Admin Dose 10 MG; Start 09/30/16 at 19:00 Clopidogrel Bisulfate (plaVIX) 75 mg DAILY PO Last administered on 10/11/16 09: 39; Admin Dose 75 MG; Start 10/01/16 at 09:00 Docusate Sodium (Colace) 100 mg Q12H PRN PO CONSTIPATION Last administered on 08:42; Admin Dose 100 MG; Start 09/30/16 at 19:00 Enoxaparin Sodium (Lovenox) 30 mg DAILY SC Last administered on 10/11/16 09:35 ; Admin Dose 30 MG; Start 10/01/16 at 09:00 Famotidine (Pepcid) 20 mg QHS PO Last administered on 10/11/16 21:22; Admin Dose 20 MG; Start 09/30/16 at 21:00 Hydralazine HCl (Apresoline) 10 mg Q6H PRN IV ELEVATED BP SBP>160 Last administered on 10/08/16 08:48; Admin Dose 10 MG; Start 09/30/16 at 19:00 Acetaminophen/ Hydrocodone Bitart ([place] (5/325)) 1 tab Q6H PRN PO MODERATE PAIN LEVEL 4-6 Last administered on 10/03/16 12:29; Admin Dose 1 TAB; Start at 19:00 Metoprolol Succinate (Toprol Xl) 50 mg BID PO Last administered on 10/11/16 21: 24; Admin Dose 50 MG; Start 09/30/16 at 21:00 Morphine Sulfate (morphine) 2 mg Q4H PRN IV SEVERE PAIN LEVEL 7-10; Start 09/30 at 19:00 Ondansetron HCl (Zofran Inj) 4 mg Q6H PRN IV NAUSEA AND/OR VOMITING; Start at 19:00 Solifenacin (Vesicare) 5 mg DAILY PO Last administered on 10/11/16 09:38; Admin Dose 5 MG; Start 10/01/16 at 09:00 Docusate Sodium (Colace) 100 mg BID PO Last administered on 10/11/16 09:38; Admin Dose 100 MG; Start 09/30/16 at 21:00 Senna (Senokot) 1 tab HS PO Last administered on 10/10/16 21:15; Admin Dose 1 TAB; Start 09/30/16 at 21:00 Magnesium Hydroxide (Milk Of Mag) 30 ml BID PRN PO CONSTIPATION; Start at 19:30 Lactulose (Enulose) 20 gm DAILY PRN PO CONSTIPATION Last administered on 08:41; Admin Dose 20 GM; Start 09/30/16 at 19:30 Miscellaneous Information 1 ea NOTE XX ; Start 09/30/16 at 19:30 Glucose (Glutose) 15 gm Q15M PRN PO DECREASED GLUCOSE; Start 09/30/16 at 19:30 Glucose (Glutose) 22.5 gm Q15M PRN PO DECREASED GLUCOSE; Start 09/30/16 at 19: 30 Dextrose (D50w Syringe) 25 ml Q15M PRN IV DECREASED GLUCOSE; Start 09/30/16 at 19:30 Dextrose (D50w Syringe) 50 ml Q15M PRN IV DECREASED GLUCOSE Last administered on 10/10/16 23:24; Admin Dose 50 ML; Start 09/30/16 at 19:30 Glucagon (Glucagen) 1 mg Q15M PRN IM DECREASED GLUCOSE; Start 09/30/16 at 19:30 Glucose (Glutose) 15 gm Q15M PRN BUCCAL DECREASED GLUCOSE Last administered on 10/11/16 17:38; Admin Dose 15 GM; Start 09/30/16 at 19:30 Patient Own Medication 1 ea DAILY BOTH EYES Last administered on 10/11/16 09:39 ; Admin Dose 1 EA; Start 10/03/16 at 12:00 Linagliptin (Tradjenta) 5 mg DAILY PO Last administered on 10/11/16 09:38; Admin Dose 5 MG; Start 10/07/16 at 09:00 Sodium Biphosphate/ Sodium Phosphate (Fleet Enema) 133 ml DAILY PRN [place] CONSTIPATION; Start 10/07/16 at 10:00 Polyethylene Glycol (Miralax) 17 gm DAILY PRN PO CONSTIPATION; Start 10/07/16 at 11:00 Insulin Glargine (Lantus) 44 unit DAILY SC Last administered on 10/11/16 09:34 ; Admin Dose 44 UNIT; Start 10/11/16 at 09:00 Cyclosporine (Restasis) 1 drop Q12 BOTH EYES Last administered on 10/11/16 21: 21; Admin Dose 1 DROP; Start 10/11/16 at 09:00 Gabapentin (Neurontin) 300 mg BID PO ; Start 10/12/16 at 09:00 RIKA POWERS MD October 12, 2016 07:31
[2016-10-12 07:36] LABS: CREATININE 0.79 mg/dl (0.44-1.00)
[2016-10-12 07:37] LABS: MAGNESIUM 1.6 mg/dl (1.7-2.5); PHOSPHORUS 3.6 mg/dl (2.5-4.9)
[2016-10-12] MEDS: INSULIN ASPART [NOVOLOG] 3 ML PEN SC SCH ×7 (08:21→20:57)
[2016-10-12] MEDS: EYE BOTH EYES SCH (08:58)
[2016-10-12] MEDS: PAZEO BOTH EYES SCH (08:58)
[2016-10-12] MEDS: CYCLOSPORINE 0.05% OPH DROPERETTE BOTH EYES SCH ×2 (08:58→20:18)
[2016-10-12] MEDS: ENOXAPARIN 30 MG/0.3 ML SYG SC SCH (08:59)
[2016-10-12] MEDS: GABAPENTIN 300 MG CAP PO SCH ×2 (09:00→20:18)
[2016-10-12] MEDS: METOPROLOL (XL) 50 MG TAB PO SCH ×2 (09:00→20:24)
[2016-10-12] MEDS: LINAGLIPTIN 5 MG TABLET PO SCH (09:00)
[2016-10-12] MEDS: ASPIRIN (EC) 81 MG TAB PO SCH (09:00)
[2016-10-12] MEDS: DOCUSATE SODIUM 100 MG CAP PO SCH ×2 (09:00→20:58)
[2016-10-12] MEDS: CLOPIDOGREL 75 MG TAB PO SCH (09:00)
[2016-10-12] MEDS: SOLIFENACIN 5 MG TAB PO SCH (09:01)
[2016-10-12] MEDS: INSULIN GLARGINE [LANtus] 3 ML PEN SC SCH (09:01)
--- NOTE | 2016-10-12 14:24 | CONS ---
Date/Time of Note Date/Time of Note DATE: 10/12/16 TIME: 14:23 Consult Date/Type/Reason Admit Date/Time Sep 30, 2016 at 17:35 Type of Consultation: medicine Ordering Provider: SOCORRO GARBER MD, [facility] Subjective Patient comfortable at rest Objective Vital Signs Date Time Temp Pulse Resp B/P Pulse Ox O2 Delivery O2 Flow Rate FiO2 10/12/16 07:30 98.5 80 18 135/65 97 Intake and Output 10/11/16 10/11/16 10/12/16 14:59 22:59 06:59 Intake Total 1650 ml Output Total 850 ml 600 ml 1600 ml Balance -850 ml 1050 ml -1600 ml Exam PHYSICAL EXAMINATION: GENERAL: Elderly-appearing lady, comfortable at rest, NECK: Supple. No JVD or lymphadenopathy. CARDIAC: S1, S2, no added sounds or murmurs. CHEST: Diminished air entry bilaterally. ABDOMEN: Soft, nontender. No guarding or rebound. EXTREMITIES: No cyanosis, clubbing, 1+ edema. NEUROLOGIC: Generalized weakness. Results/Medications Result Diagram: 10/12/1620 10/12/1620 Results 24 hrs Laboratory Tests Test 10/11/16 17:16 10/11/16 17:36 10/11/16 17:56 10/11/16 18:38 Bedside Glucose 30 *L 53 L 93 146 Test 10/11/16 18:55 10/11/16 20:09 10/11/16 23:53 10/12/16 06:20 Bedside Glucose 145 152 267 H White Blood Count 5.9 # Red Blood Count 3.78 L Hemoglobin 10.8 L Hematocrit 33.2 L Mean Corpuscular Volume 87.8 Mean Corpuscular Hemoglobin 28.6 L Mean Corpuscular Hemoglobin Concent 32.5 Red Cell Distribution Width 14.1 Platelet Count 293 Mean Platelet Volume 9.7 Neutrophils % 52.6 Lymphocytes % 29.7 Monocytes % 11.0 Eosinophils % 5.9 Basophils % 0.5 Nucleated Red Blood Cells % 0.0 Neutrophils # 3.1 Lymphocytes # 1.8 Monocytes # 0.7 Eosinophils # 0.4 Basophils # 0.0 Nucleated Red Blood Cells # 0.0 Sodium Level 139 Potassium Level 4.0 Chloride Level 107 Carbon Dioxide Level 24 Anion Gap 12 Blood Urea Nitrogen 18 Creatinine 0.79 Glucose Level 221 H Calcium Level 9.0 Phosphorus Level 3.6 Magnesium Level 1.6 L Test 10/12/16 07:25 10/12/16 08:58 10/12/16 12:23 Bedside Glucose 205 215 316 H Medications Current Medications Acetaminophen (Tylenol Supp) 650 mg Q6H PRN [place] PAIN LEVEL 1-3 OR FEVER; Start 09/30/16 at 19:00 Acetaminophen (Tylenol Tab) 650 mg Q6H PRN PO PAIN LEVEL 1-3 OR FEVER; Start at 19:00 Aspirin (Halfprin) 81 mg DAILY PO Last administered on 10/12/16 09:00; Admin Dose 81 MG; Start 10/01/16 at 09:00 Atorvastatin Calcium (Lipitor) 80 mg DAILY@21 PO Last administered on 10/11/16 21:21; Admin Dose 80 MG; Start 09/30/16 at 21:00 Bisacodyl (Dulcolax) 5 mg DAILY PRN PO CONSTIPATION Last administered on 08:47; Admin Dose 5 MG; Start 09/30/16 at 19:00 Bisacodyl (Dulcolax Supp) 10 mg DAILY PRN [place] CONSTIPATION Last administered on 10/06/16 20:32; Admin Dose 10 MG; Start 09/30/16 at 19:00 Clopidogrel Bisulfate (plaVIX) 75 mg DAILY PO Last administered on 10/12/16 09: 00; Admin Dose 75 MG; Start 10/01/16 at 09:00 Docusate Sodium (Colace) 100 mg Q12H PRN PO CONSTIPATION Last administered on 08:42; Admin Dose 100 MG; Start 09/30/16 at 19:00 Enoxaparin Sodium (Lovenox) 30 mg DAILY SC Last administered on 10/12/16 08:59 ; Admin Dose 30 MG; Start 10/01/16 at 09:00 Famotidine (Pepcid) 20 mg QHS PO Last administered on 10/11/16 21:22; Admin Dose 20 MG; Start 09/30/16 at 21:00 Hydralazine HCl (Apresoline) 10 mg Q6H PRN IV ELEVATED BP SBP>160 Last administered on 10/08/16 08:48; Admin Dose 10 MG; Start 09/30/16 at 19:00 Acetaminophen/ Hydrocodone Bitart ([place] (5/325)) 1 tab Q6H PRN PO MODERATE PAIN LEVEL 4-6 Last administered on 10/03/16 12:29; Admin Dose 1 TAB; Start at 19:00 Metoprolol Succinate (Toprol Xl) 50 mg BID PO Last administered on 10/12/16 09: 00; Admin Dose 50 MG; Start 09/30/16 at 21:00 Morphine Sulfate (morphine) 2 mg Q4H PRN IV SEVERE PAIN LEVEL 7-10; Start 09/30 at 19:00 Ondansetron HCl (Zofran Inj) 4 mg Q6H PRN IV NAUSEA AND/OR VOMITING; Start at 19:00 Solifenacin (Vesicare) 5 mg DAILY PO Last administered on 10/12/16 09:01; Admin Dose 5 MG; Start 10/01/16 at 09:00 Docusate Sodium (Colace) 100 mg BID PO Last administered on 10/11/16 09:38; Admin Dose 100 MG; Start 09/30/16 at 21:00 Senna (Senokot) 1 tab HS PO Last administered on 10/10/16 21:15; Admin Dose 1 TAB; Start 09/30/16 at 21:00 Magnesium Hydroxide (Milk Of Mag) 30 ml BID PRN PO CONSTIPATION; Start at 19:30 Lactulose (Enulose) 20 gm DAILY PRN PO CONSTIPATION Last administered on 08:41; Admin Dose 20 GM; Start 09/30/16 at 19:30 Miscellaneous Information 1 ea NOTE XX ; Start 09/30/16 at 19:30 Glucose (Glutose) 15 gm Q15M PRN PO DECREASED GLUCOSE; Start 09/30/16 at 19:30 Glucose (Glutose) 22.5 gm Q15M PRN PO DECREASED GLUCOSE; Start 09/30/16 at 19: 30 Dextrose (D50w Syringe) 25 ml Q15M PRN IV DECREASED GLUCOSE; Start 09/30/16 at 19:30 Dextrose (D50w Syringe) 50 ml Q15M PRN IV DECREASED GLUCOSE Last administered on 10/10/16 23:24; Admin Dose 50 ML; Start 09/30/16 at 19:30 Glucagon (Glucagen) 1 mg Q15M PRN IM DECREASED GLUCOSE; Start 09/30/16 at 19:30 Glucose (Glutose) 15 gm Q15M PRN BUCCAL DECREASED GLUCOSE Last administered on 10/11/16 17:38; Admin Dose 15 GM; Start 09/30/16 at 19:30 Patient Own Medication 1 ea DAILY BOTH EYES Last administered on 10/12/16 08:58 ; Admin Dose 1 EA; Start 10/03/16 at 12:00 Linagliptin (Tradjenta) 5 mg DAILY PO Last administered on 10/12/16 09:00; Admin Dose 5 MG; Start 10/07/16 at 09:00 Sodium Biphosphate/ Sodium Phosphate (Fleet Enema) 133 ml DAILY PRN [place] CONSTIPATION; Start 10/07/16 at 10:00 Polyethylene Glycol (Miralax) 17 gm DAILY PRN PO CONSTIPATION; Start 10/07/16 at 11:00 Insulin Glargine (Lantus) 44 unit DAILY SC Last administered on 10/12/16 09:01 ; Admin Dose 44 UNIT; Start 10/11/16 at 09:00 Cyclosporine (Restasis) 1 drop Q12 BOTH EYES Last administered on 10/12/16 08: 58; Admin Dose 1 DROP; Start 10/11/16 at 09:00 Gabapentin (Neurontin) 300 mg BID PO Last administered on 10/12/16 09:00; Admin Dose 300 MG; Start 10/12/16 at 09:00 Assessment/Plan Chief Complaint/Hosp Course IMPRESSION: 1. Recent cerebrovascular accident. 2. Resolved, encephalopathy 3. L1 compression fractures, likely cause of her low back pain. 4. History of insulin-dependent diabetes poorly controlled 5. Essential hypertension. PLAN: 1. Continue physical therapy 2. Endocrinology recommendations appreciated. 3. Continue antihypertensives. 4. DVT and GI prophylaxis. 5. Repeat baseline labs stable. Problems: SOCORRO GARBER MD, [facility] October 12, 2016 14:24
[2016-10-12] MEDS: metFORMIN 500 MG TAB PO SCH (18:00)
[2016-10-12] MEDS: FAMOTIDINE 20 MG TAB PO SCH (20:18)
[2016-10-12] MEDS: ATORVASTATIN 80 MG TAB PO SCH (20:18)
[2016-10-12 20:24] VITALS: BP 171/71; PULSE 82
[2016-10-12] MEDS: SENNA TAB PO SCH (20:58)
[2016-10-12 22:13] VITALS: BP 124/80; RESP 18
[2016-10-13 07:30] VITALS: BP 179/78; RESP 18
[2016-10-13] MEDS: INSULIN ASPART [NOVOLOG] 3 ML PEN SC SCH ×7 (08:25→21:00)
[2016-10-13] MEDS: CLOPIDOGREL 75 MG TAB PO SCH (09:01)
[2016-10-13] MEDS: METOPROLOL (XL) 50 MG TAB PO SCH ×2 (09:01→21:00)
[2016-10-13] MEDS: GABAPENTIN 300 MG CAP PO SCH ×2 (09:01→20:59)
[2016-10-13] MEDS: DOCUSATE SODIUM 100 MG CAP PO SCH ×2 (09:01→20:59)
[2016-10-13] MEDS: SOLIFENACIN 5 MG TAB PO SCH (09:02)
[2016-10-13] MEDS: LINAGLIPTIN 5 MG TABLET PO SCH (09:02)
[2016-10-13] MEDS: ASPIRIN (EC) 81 MG TAB PO SCH (09:02)
[2016-10-13] MEDS: INSULIN GLARGINE [LANtus] 3 ML PEN SC SCH (09:08)
[2016-10-13] MEDS: ENOXAPARIN 30 MG/0.3 ML SYG SC SCH (09:08)
[2016-10-13] MEDS: CYCLOSPORINE 0.05% OPH DROPERETTE BOTH EYES SCH ×2 (09:11→21:00)
[2016-10-13] MEDS: EYE BOTH EYES SCH (09:13)
[2016-10-13] MEDS: PAZEO BOTH EYES SCH (09:13)
--- NOTE | 2016-10-13 11:48 | CONS ---
Date/Time of Note Date/Time of Note DATE: 10/13/16 TIME: 11:47 Consult Date/Type/Reason Admit Date/Time Sep 30, 2016 at 17:35 Type of Consultation: medicine Ordering Provider: SOCORRO GARBER MD, [facility] Subjective Patient remains comfortable no new events Objective Vital Signs Date Time Temp Pulse Resp B/P Pulse Ox O2 Delivery O2 Flow Rate FiO2 10/12/16 22:13 98.0 90 18 124/80 97 Intake and Output 10/12/16 10/12/16 10/13/16 15:00 23:00 07:00 Intake Total 1100 ml 120 ml Output Total 800 ml 900 ml Balance 300 ml -780 ml Results/Medications Result Diagram: 10/12/16 0620 10/12/16 0620 Results 24 hrs Laboratory Tests Test 10/12/16 12:23 10/12/16 17:34 10/12/16 20:56 10/13/16 08:00 Bedside Glucose 316 H 104 135 173 Test 10/13/16 09:04 Bedside Glucose 233 H Medications Current Medications Acetaminophen (Tylenol Supp) 650 mg Q6H PRN [place] PAIN LEVEL 1-3 OR FEVER; Start 09/30/16 at 19:00 Acetaminophen (Tylenol Tab) 650 mg Q6H PRN PO PAIN LEVEL 1-3 OR FEVER; Start at 19:00 Aspirin (Halfprin) 81 mg DAILY PO Last administered on 10/13/16 09:02; Admin Dose 81 MG; Start 10/01/16 at 09:00 Atorvastatin Calcium (Lipitor) 80 mg DAILY@21 PO Last administered on 10/12/16 20:18; Admin Dose 80 MG; Start 09/30/16 at 21:00 Bisacodyl (Dulcolax) 5 mg DAILY PRN PO CONSTIPATION Last administered on 08:47; Admin Dose 5 MG; Start 09/30/16 at 19:00 Bisacodyl (Dulcolax Supp) 10 mg DAILY PRN [place] CONSTIPATION Last administered on 10/06/16 20:32; Admin Dose 10 MG; Start 09/30/16 at 19:00 Clopidogrel Bisulfate (plaVIX) 75 mg DAILY PO Last administered on 10/13/16 09: 01; Admin Dose 75 MG; Start 10/01/16 at 09:00 Docusate Sodium (Colace) 100 mg Q12H PRN PO CONSTIPATION Last administered on 08:42; Admin Dose 100 MG; Start 09/30/16 at 19:00 Enoxaparin Sodium (Lovenox) 30 mg DAILY SC Last administered on 10/13/16 09:08 ; Admin Dose 30 MG; Start 10/01/16 at 09:00 Famotidine (Pepcid) 20 mg QHS PO Last administered on 10/12/16 20:18; Admin Dose 20 MG; Start 09/30/16 at 21:00 Hydralazine HCl (Apresoline) 10 mg Q6H PRN IV ELEVATED BP SBP>160 Last administered on 10/08/16 08:48; Admin Dose 10 MG; Start 09/30/16 at 19:00 Acetaminophen/ Hydrocodone Bitart ([place] (5/325)) 1 tab Q6H PRN PO MODERATE PAIN LEVEL 4-6 Last administered on 10/03/16 12:29; Admin Dose 1 TAB; Start at 19:00 Metoprolol Succinate (Toprol Xl) 50 mg BID PO Last administered on 10/13/16 09: 01; Admin Dose 50 MG; Start 09/30/16 at 21:00 Morphine Sulfate (morphine) 2 mg Q4H PRN IV SEVERE PAIN LEVEL 7-10; Start 09/30 at 19:00 Ondansetron HCl (Zofran Inj) 4 mg Q6H PRN IV NAUSEA AND/OR VOMITING; Start at 19:00 Solifenacin (Vesicare) 5 mg DAILY PO Last administered on 10/13/16 09:02; Admin Dose 5 MG; Start 10/01/16 at 09:00 Docusate Sodium (Colace) 100 mg BID PO Last administered on 10/13/16 09:01; Admin Dose 100 MG; Start 09/30/16 at 21:00 Senna (Senokot) 1 tab HS PO Last administered on 10/10/16 21:15; Admin Dose 1 TAB; Start 09/30/16 at 21:00 Magnesium Hydroxide (Milk Of Mag) 30 ml BID PRN PO CONSTIPATION; Start at 19:30 Lactulose (Enulose) 20 gm DAILY PRN PO CONSTIPATION Last administered on 08:41; Admin Dose 20 GM; Start 09/30/16 at 19:30 Miscellaneous Information 1 ea NOTE XX ; Start 09/30/16 at 19:30 Glucose (Glutose) 15 gm Q15M PRN PO DECREASED GLUCOSE; Start 09/30/16 at 19:30 Glucose (Glutose) 22.5 gm Q15M PRN PO DECREASED GLUCOSE; Start 09/30/16 at 19: 30 Dextrose (D50w Syringe) 25 ml Q15M PRN IV DECREASED GLUCOSE; Start 09/30/16 at 19:30 Dextrose (D50w Syringe) 50 ml Q15M PRN IV DECREASED GLUCOSE Last administered on 10/10/16 23:24; Admin Dose 50 ML; Start 09/30/16 at 19:30 Glucagon (Glucagen) 1 mg Q15M PRN IM DECREASED GLUCOSE; Start 09/30/16 at 19:30 Glucose (Glutose) 15 gm Q15M PRN BUCCAL DECREASED GLUCOSE Last administered on 10/11/16 17:38; Admin Dose 15 GM; Start 09/30/16 at 19:30 Patient Own Medication 1 ea DAILY BOTH EYES Last administered on 10/13/16 09:13 ; Admin Dose 1 EA; Start 10/03/16 at 12:00 Linagliptin (Tradjenta) 5 mg DAILY PO Last administered on 10/13/16 09:02; Admin Dose 5 MG; Start 10/07/16 at 09:00 Sodium Biphosphate/ Sodium Phosphate (Fleet Enema) 133 ml DAILY PRN [place] CONSTIPATION; Start 10/07/16 at 10:00 Polyethylene Glycol (Miralax) 17 gm DAILY PRN PO CONSTIPATION; Start 10/07/16 at 11:00 Insulin Glargine (Lantus) 44 unit DAILY SC Last administered on 10/13/16 09:08 ; Admin Dose 44 UNIT; Start 10/11/16 at 09:00 Cyclosporine (Restasis) 1 drop Q12 BOTH EYES Last administered on 10/13/16 09: 11; Admin Dose 1 DROP; Start 10/11/16 at 09:00 Gabapentin (Neurontin) 300 mg BID PO Last administered on 10/13/16 09:01; Admin Dose 300 MG; Start 10/12/16 at 09:00 Assessment/Plan Chief Complaint/Hosp Course IMPRESSION: 1. Recent cerebrovascular accident. 2. Resolved, encephalopathy 3. L1 compression fractures, likely cause of her low back pain. 4. History of insulin-dependent diabetes poorly controlled 5. Essential hypertension. PLAN: 1. Continue physical therapy 2. Endocrinology recommendations appreciated. 3. Continue antihypertensives. 4. DVT and GI prophylaxis. [facility] Problems: [facility]OR[facility] GARBER MD, [facility] October 13, 2016 11:48
[2016-10-13 13:23] VITALS: BP 134/70; PULSE 93
--- NOTE | 2016-10-13 13:28 | CONS ---
Date/Time of Note Date/Time of Note DATE: 10/13/16 TIME: 13:27 Consult Date/Type/Reason Admit Date/Time Sep 30, 2016 at 17:35 Type of Consultation: medicine Ordering Provider: SOC[facility] GARBER [facility], [facility] Subjective comfortable Objective Vital Signs Date Time Temp Pulse Resp B/P Pulse Ox O2 Delivery O2 Flow Rate FiO2 10/13/16 13:23 93 134/70 10/12/16 22:13 98.0 18 97 Intake and Output 10/12/16 10/12/16 10/13/16 15:00 23:00 07:00 Intake Total 1100 ml 120 ml Output Total 800 ml 900 ml Balance 300 ml -780 ml INTERDISCIPLINARY TEAM CONFERENCE BOWEL- Cont BLADDER-incont SKIN- intact OT- DRESSING-max BATHING-max TOILETING-max PT- BED MOBILITY-max TRANSFERS-max AMBULATION-max SPEECH- COGNITION-max DYPHAGIA-mech soft A/P- Interdisciplinary team conference held today. Please see interdisciplinary sheet. Working toward d.c. on 10/20 with post discharge follow up of physical therapy, occupational therapy. Results/Medications Result Diagram: 10/12/16 0620 10/12/16 0620 Results 24 hrs Laboratory Tests Test 10/12/16 17:34 10/12/16 20:56 10/13/16 08:00 10/13/16 09:04 Bedside Glucose 104 135 173 233 H Test 10/13/16 12:27 Bedside Glucose 173 Medications Current Medications Acetaminophen (Tylenol Supp) 650 mg Q6H PRN [place] PAIN LEVEL 1-3 OR FEVER; Start 09/30/16 at 19:00 Acetaminophen (Tylenol Tab) 650 mg Q6H PRN PO PAIN LEVEL 1-3 OR FEVER; Start at 19:00 Aspirin (Halfprin) 81 mg DAILY PO Last administered on 10/13/16 09:02; Admin Dose 81 MG; Start 10/01/16 at 09:00 Atorvastatin Calcium (Lipitor) 80 mg DAILY@21 PO Last administered on 10/12/16 20:18; Admin Dose 80 MG; Start 09/30/16 at 21:00 Bisacodyl (Dulcolax) 5 mg DAILY PRN PO CONSTIPATION Last administered on 08:47; Admin Dose 5 MG; Start 09/30/16 at 19:00 Bisacodyl (Dulcolax Supp) 10 mg DAILY PRN [place] CONSTIPATION Last administered on 10/06/16 20:32; Admin Dose 10 MG; Start 09/30/16 at 19:00 Clopidogrel Bisulfate (plaVIX) 75 mg DAILY PO Last administered on 10/13/16 09: 01; Admin Dose 75 MG; Start 10/01/16 at 09:00 Docusate Sodium (Colace) 100 mg Q12H PRN PO CONSTIPATION Last administered on 08:42; Admin Dose 100 MG; Start 09/30/16 at 19:00 Enoxaparin Sodium (Lovenox) 30 mg DAILY SC Last administered on 10/13/16 09:08 ; Admin Dose 30 MG; Start 10/01/16 at 09:00 Famotidine (Pepcid) 20 mg QHS PO Last administered on 10/12/16 20:18; Admin Dose 20 MG; Start 09/30/16 at 21:00 Hydralazine HCl (Apresoline) 10 mg Q6H PRN IV ELEVATED BP SBP>160 Last administered on 10/08/16 08:48; Admin Dose 10 MG; Start 09/30/16 at 19:00 Acetaminophen/ Hydrocodone Bitart ([place] (5/325)) 1 tab Q6H PRN PO MODERATE PAIN LEVEL 4-6 Last administered on 10/03/16 12:29; Admin Dose 1 TAB; Start at 19:00 Metoprolol Succinate (Toprol Xl) 50 mg BID PO Last administered on 10/13/16 09: 01; Admin Dose 50 MG; Start 09/30/16 at 21:00 Morphine Sulfate (morphine) 2 mg Q4H PRN IV SEVERE PAIN LEVEL 7-10; Start 09/30 at 19:00 Ondansetron HCl (Zofran Inj) 4 mg Q6H PRN IV NAUSEA AND/OR VOMITING; Start at 19:00 Solifenacin (Vesicare) 5 mg DAILY PO Last administered on 10/13/16 09:02; Admin Dose 5 MG; Start 10/01/16 at 09:00 Docusate Sodium (Colace) 100 mg BID PO Last administered on 10/13/16 09:01; Admin Dose 100 MG; Start 09/30/16 at 21:00 Senna (Senokot) 1 tab HS PO Last administered on 10/10/16 21:15; Admin Dose 1 TAB; Start 09/30/16 at 21:00 Magnesium Hydroxide (Milk Of Mag) 30 ml BID PRN PO CONSTIPATION; Start at 19:30 Lactulose (Enulose) 20 gm DAILY PRN PO CONSTIPATION Last administered on 08:41; Admin Dose 20 GM; Start 09/30/16 at 19:30 Miscellaneous Information 1 ea NOTE XX ; Start 09/30/16 at 19:30 Glucose (Glutose) 15 gm Q15M PRN PO DECREASED GLUCOSE; Start 09/30/16 at 19:30 Glucose (Glutose) 22.5 gm Q15M PRN PO DECREASED GLUCOSE; Start 09/30/16 at 19: 30 Dextrose (D50w Syringe) 25 ml Q15M PRN IV DECREASED GLUCOSE; Start 09/30/16 at 19:30 Dextrose (D50w Syringe) 50 ml Q15M PRN IV DECREASED GLUCOSE Last administered on 10/10/16 23:24; Admin Dose 50 ML; Start 09/30/16 at 19:30 Glucagon (Glucagen) 1 mg Q15M PRN IM DECREASED GLUCOSE; Start 09/30/16 at 19:30 Glucose (Glutose) 15 gm Q15M PRN BUCCAL DECREASED GLUCOSE Last administered on 10/11/16 17:38; Admin Dose 15 GM; Start 09/30/16 at 19:30 Patient Own Medication 1 ea DAILY BOTH EYES Last administered on 10/13/16 09:13 ; Admin Dose 1 EA; Start 10/03/16 at 12:00 Linagliptin (Tradjenta) 5 mg DAILY PO Last administered on 10/13/16 09:02; Admin Dose 5 MG; Start 10/07/16 at 09:00 Sodium Biphosphate/ Sodium Phosphate (Fleet Enema) 133 ml DAILY PRN [place] CONSTIPATION; Start 10/07/16 at 10:00 Polyethylene Glycol (Miralax) 17 gm DAILY PRN PO CONSTIPATION; Start 10/07/16 at 11:00 Insulin Glargine (Lantus) 44 unit DAILY SC Last administered on 10/13/16 09:08 ; Admin Dose 44 UNIT; Start 10/11/16 at 09:00 Cyclosporine (Restasis) 1 drop Q12 BOTH EYES Last administered on 10/13/16 09: 11; Admin Dose 1 DROP; Start 10/11/16 at 09:00 Gabapentin (Neurontin) 300 mg BID PO Last administered on 10/13/16 09:01; Admin Dose 300 MG; Start 10/12/16 at 09:00 SHADY FREEMAN MD October 13, 2016 13:28
[2016-10-13] MEDS: metFORMIN 500 MG TAB PO SCH (17:45)
--- NOTE | 2016-10-13 19:04 | CONS ---
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 Needs to increase Novolog w/ B/L from 12 to 14 units. Cont. Novolog w/ D of 9 units. Cont. current lantus and metformin and linagliptin doses. Based on erratic nature of BG will check c- peptide and autoantibodies to r/o T1DM. Consultation Date/Type/Reason Admit Date/Time Sep 30, 2016 at 17:35 Initial Consult Date 10/07/16 Type of Consultation: endocrinology Reason for Consultation T2DM management Referring Provider: SOCORRO GARBER MD, [facility] 24 HR Interval Summary Constitutional: no complaints Exam/Review of Systems Vital Signs Vitals VS - Last 72 Hours, by Label Date Time Temp Pulse Resp B/P Pulse Ox O2 Delivery O2 Flow Rate FiO2 10/13/16 13:23 93 134/70 10/13/16 07:30 98.5 86 18 179/78 94 10/12/16 22:13 98.0 90 18 124/80 97 10/12/16 20:24 82 171/71 10/12/16 07:30 98.5 80 18 135/65 97 10/11/16 19:39 97.4 80 19 136/63 95 10/11/16 07:50 98.1 79 20 149/66 96 10/10/16 20:00 98.5 88 18 135/62 94 Vital Signs Date Time Temp Pulse Resp B/P Pulse Ox O2 Delivery O2 Flow Rate FiO2 10/13/16 13:23 93 134/70 10/13/16 07:30 98.5 18 94 Intake and Output 10/12/16 10/12/16 10/13/16 15:00 23:00 07:00 Intake Total 1100 ml 120 ml Output Total 800 ml 900 ml Balance 300 ml -780 ml Exam Constitutional: alert, obese, oriented Respiratory: clear to auscultation, normal air movement Cardiovascular: nl pulses, regular rate and rhythm, No edema, No murmurs/extra sounds, No rub Gastrointestinal: bowel sounds, nl liver, spleen, non-tender, soft, No mass, No rebound or guarding Musculoskeletal: nl extremities to inspection Extremities: normal pulses, No clubbing, No cyanosis, No edema 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, nl mental status, nl speech, nl strength Additional Comments Bedside Glucose - 72 Hours Test 10/10/16 21:28 10/10/16 23:16 10/10/16 23:41 10/11/16 00:04 Bedside Glucose 70mg/dL (70-220) 52mg/dL (70-220) L 180mg/dL (70-220) 143mg/dL (70-220) Test 10/11/16 02:59 10/11/16 07:55 10/11/16 11:53 10/11/16 17:16 Bedside Glucose 152mg/dL (70-220) 187mg/dL (70-220) 219mg/dL (70-220) 30mg/dL (70-220) *L Test 10/11/16 17:36 10/11/16 17:56 10/11/16 18:38 10/11/16 18:55 Bedside Glucose 53mg/dL (70-220) L 93mg/dL (70-220) 146mg/dL (70-220) 145mg/dL (70-220) Test 10/11/16 20:09 10/11/16 23:53 10/12/16 07:25 10/12/16 08:58 Bedside Glucose 152mg/dL (70-220) 267mg/dL (70-220) H 205mg/dL (70-220) 215mg/dL (70-220) Test 10/12/16 12:23 10/12/16 17:34 10/12/16 20:56 10/13/16 08:00 Bedside Glucose 316mg/dL (70-220) H 104mg/dL (70-220) 135mg/dL (70-220) 173mg/dL (70-220) Test 10/13/16 09:04 10/13/16 12:27 10/13/16 17:34 Bedside Glucose 233mg/dL (70-220) H 173mg/dL (70-220) 206mg/dL (70-220) Results Result Diagram: 10/12/16 0620 10/12/16 0620 Results 24 hrs Laboratory Tests Test 10/12/16 20:56 10/13/16 08:00 10/13/16 09:04 10/13/16 12:27 Bedside Glucose 135 173 233 H 173 Test 10/13/16 17:34 Bedside Glucose 206 Medications Medications Current Medications Acetaminophen (Tylenol Supp) 650 mg Q6H PRN [place] PAIN LEVEL 1-3 OR FEVER; Start 09/30/16 at 19:00 Acetaminophen (Tylenol Tab) 650 mg Q6H PRN PO PAIN LEVEL 1-3 OR FEVER; Start at 19:00 Aspirin (Halfprin) 81 mg DAILY PO Last administered on 10/13/16 09:02; Admin Dose 81 MG; Start 10/01/16 at 09:00 Atorvastatin Calcium (Lipitor) 80 mg DAILY@21 PO Last administered on 10/12/16 20:18; Admin Dose 80 MG; Start 09/30/16 at 21:00 Bisacodyl (Dulcolax) 5 mg DAILY PRN PO CONSTIPATION Last administered on 08:47; Admin Dose 5 MG; Start 09/30/16 at 19:00 Bisacodyl (Dulcolax Supp) 10 mg DAILY PRN [place] CONSTIPATION Last administered on 10/06/16 20:32; Admin Dose 10 MG; Start 09/30/16 at 19:00 Clopidogrel Bisulfate (plaVIX) 75 mg DAILY PO Last administered on 10/13/16 09: 01; Admin Dose 75 MG; Start 10/01/16 at 09:00 Docusate Sodium (Colace) 100 mg Q12H PRN PO CONSTIPATION Last administered on 08:42; Admin Dose 100 MG; Start 09/30/16 at 19:00 Enoxaparin Sodium (Lovenox) 30 mg DAILY SC Last administered on 10/13/16 09:08 ; Admin Dose 30 MG; Start 10/01/16 at 09:00 Famotidine (Pepcid) 20 mg QHS PO Last administered on 10/12/16 20:18; Admin Dose 20 MG; Start 09/30/16 at 21:00 Hydralazine HCl (Apresoline) 10 mg Q6H PRN IV ELEVATED BP SBP>160 Last administered on 10/08/16 08:48; Admin Dose 10 MG; Start 09/30/16 at 19:00 Acetaminophen/ Hydrocodone Bitart ([place] (5/325)) 1 tab Q6H PRN PO MODERATE PAIN LEVEL 4-6 Last administered on 10/03/16 12:29; Admin Dose 1 TAB; Start at 19:00 Metoprolol Succinate (Toprol Xl) 50 mg BID PO Last administered on 10/13/16 09: 01; Admin Dose 50 MG; Start 09/30/16 at 21:00 Morphine Sulfate (morphine) 2 mg Q4H PRN IV SEVERE PAIN LEVEL 7-10; Start 09/30 at 19:00 Ondansetron HCl (Zofran Inj) 4 mg Q6H PRN IV NAUSEA AND/OR VOMITING; Start at 19:00 Solifenacin (Vesicare) 5 mg DAILY PO Last administered on 10/13/16 09:02; Admin Dose 5 MG; Start 10/01/16 at 09:00 Docusate Sodium (Colace) 100 mg BID PO Last administered on 10/13/16 09:01; Admin Dose 100 MG; Start 09/30/16 at 21:00 Senna (Senokot) 1 tab HS PO Last administered on 10/10/16 21:15; Admin Dose 1 TAB; Start 09/30/16 at 21:00 Magnesium Hydroxide (Milk Of Mag) 30 ml BID PRN PO CONSTIPATION; Start at 19:30 Lactulose (Enulose) 20 gm DAILY PRN PO CONSTIPATION Last administered on 08:41; Admin Dose 20 GM; Start 09/30/16 at 19:30 Miscellaneous Information 1 ea NOTE XX ; Start 09/30/16 at 19:30 Glucose (Glutose) 15 gm Q15M PRN PO DECREASED GLUCOSE; Start 09/30/16 at 19:30 Glucose (Glutose) 22.5 gm Q15M PRN PO DECREASED GLUCOSE; Start 09/30/16 at 19: 30 Dextrose (D50w Syringe) 25 ml Q15M PRN IV DECREASED GLUCOSE; Start 09/30/16 at 19:30 Dextrose (D50w Syringe) 50 ml Q15M PRN IV DECREASED GLUCOSE Last administered on 10/10/16 23:24; Admin Dose 50 ML; Start 09/30/16 at 19:30 Glucagon (Glucagen) 1 mg Q15M PRN IM DECREASED GLUCOSE; Start 09/30/16 at 19:30 Glucose (Glutose) 15 gm Q15M PRN BUCCAL DECREASED GLUCOSE Last administered on 10/11/16 17:38; Admin Dose 15 GM; Start 09/30/16 at 19:30 Patient Own Medication 1 ea DAILY BOTH EYES Last administered on 10/13/16 09:13 ; Admin Dose 1 EA; Start 10/03/16 at 12:00 Linagliptin (Tradjenta) 5 mg DAILY PO Last administered on 10/13/16 09:02; Admin Dose 5 MG; Start 10/07/16 at 09:00 Sodium Biphosphate/ Sodium Phosphate (Fleet Enema) 133 ml DAILY PRN [place] CONSTIPATION; Start 10/07/16 at 10:00 Polyethylene Glycol (Miralax) 17 gm DAILY PRN PO CONSTIPATION; Start 10/07/16 at 11:00 Insulin Glargine (Lantus) 44 unit DAILY SC Last administered on 10/13/16 09:08 ; Admin Dose 44 UNIT; Start 10/11/16 at 09:00 Cyclosporine (Restasis) 1 drop Q12 BOTH EYES Last administered on 10/13/16 09: 11; Admin Dose 1 DROP; Start 10/11/16 at 09:00 Gabapentin (Neurontin) 300 mg BID PO Last administered on 10/13/16 09:01; Admin Dose 300 MG; Start 10/12/16 at 09:00 ZAINAB NAVA MD October 13, 2016 19:04
[2016-10-13 19:46] VITALS: BP 125/87; RESP 18
[2016-10-13] MEDS: SENNA TAB PO SCH (20:59)
[2016-10-13] MEDS: FAMOTIDINE 20 MG TAB PO SCH (20:59)
[2016-10-13] MEDS: ATORVASTATIN 80 MG TAB PO SCH (20:59)
[2016-10-14 08:20] VITALS: BP 157/70; RESP 18
[2016-10-14] MEDS: INSULIN ASPART [NOVOLOG] 3 ML PEN SC SCH ×7 (08:29→21:00)
[2016-10-14] MEDS: INSULIN GLARGINE [LANtus] 3 ML PEN SC SCH (08:31)
[2016-10-14] MEDS: CLOPIDOGREL 75 MG TAB PO SCH (08:32)
[2016-10-14] MEDS: GABAPENTIN 300 MG CAP PO SCH ×2 (08:32→20:49)
[2016-10-14] MEDS: SOLIFENACIN 5 MG TAB PO SCH (08:32)
[2016-10-14] MEDS: ENOXAPARIN 30 MG/0.3 ML SYG SC SCH (08:32)
[2016-10-14] MEDS: DOCUSATE SODIUM 100 MG CAP PO SCH ×2 (08:32→20:52)
[2016-10-14] MEDS: LINAGLIPTIN 5 MG TABLET PO SCH (08:32)
[2016-10-14] MEDS: BISACODYL (EC) 5 MG TAB PO PRN (08:32)
[2016-10-14] MEDS: ASPIRIN (EC) 81 MG TAB PO SCH (08:33)
[2016-10-14] MEDS: EYE BOTH EYES SCH (08:33)
[2016-10-14] MEDS: PAZEO BOTH EYES SCH (08:33)
[2016-10-14] MEDS: METOPROLOL (XL) 50 MG TAB PO SCH ×2 (08:33→20:50)
[2016-10-14] MEDS: CYCLOSPORINE 0.05% OPH DROPERETTE BOTH EYES SCH ×2 (08:33→20:49)
--- NOTE | 2016-10-14 12:01 | CONS ---
Date/Time of Note Date/Time of Note DATE: 10/14/16 TIME: 12:00 Consult Date/Type/Reason Admit Date/Time Sep 30, 2016 at 17:35 Type of Consultation: endocrinology Ordering Provider: SOCORRO GARBER MD, [facility] Subjective Much better today Objective pulm-cta mod A transfer Vital Signs Date Time Temp Pulse Resp B/P Pulse Ox O2 Delivery O2 Flow Rate FiO2 10/14/16 08:20 98.4 75 18 157/70 95 Intake and Output 10/13/16 10/13/16 10/14/16 14:59 22:59 06:59 Intake Total 460 ml 850 ml Output Total 320 ml Balance 140 ml 850 ml Results/Medications Result Diagram: 10/12/1661910/12/16619 Results 24 hrs Laboratory Tests Test 10/13/16 12:27 10/13/16 17:34 10/13/16 20:14 10/13/16 20:58 Bedside Glucose 173 206 143 136 Test 10/14/16 07:49 Bedside Glucose 186 Medications Current Medications Acetaminophen (Tylenol Supp) 650 mg Q6H PRN [place] PAIN LEVEL 1-3 OR FEVER; Start 09/30/16 at 19:00 Acetaminophen (Tylenol Tab) 650 mg Q6H PRN PO PAIN LEVEL 1-3 OR FEVER; Start at 19:00 Aspirin (Halfprin) 81 mg DAILY PO Last administered on 10/14/16 08:33; Admin Dose 81 MG; Start 10/01/16 at 09:00 Atorvastatin Calcium (Lipitor) 80 mg DAILY@21 PO Last administered on 10/13/16 20:59; Admin Dose 80 MG; Start 09/30/16 at 21:00 Bisacodyl (Dulcolax) 5 mg DAILY PRN PO CONSTIPATION Last administered on 08:32; Admin Dose 5 MG; Start 09/30/16 at 19:00 Bisacodyl (Dulcolax Supp) 10 mg DAILY PRN [place] CONSTIPATION Last administered on 10/06/16 20:32; Admin Dose 10 MG; Start 09/30/16 at 19:00 Clopidogrel Bisulfate (plaVIX) 75 mg DAILY PO Last administered on 10/14/16 08: 32; Admin Dose 75 MG; Start 10/01/16 at 09:00 Docusate Sodium (Colace) 100 mg Q12H PRN PO CONSTIPATION Last administered on 08:42; Admin Dose 100 MG; Start 09/30/16 at 19:00 Enoxaparin Sodium (Lovenox) 30 mg DAILY SC Last administered on 10/14/16 08:32 ; Admin Dose 30 MG; Start 10/01/16 at 09:00 Famotidine (Pepcid) 20 mg QHS PO Last administered on 10/13/16 20:59; Admin Dose 20 MG; Start 09/30/16 at 21:00 Hydralazine HCl (Apresoline) 10 mg Q6H PRN IV ELEVATED BP SBP>160 Last administered on 10/08/16 08:48; Admin Dose 10 MG; Start 09/30/16 at 19:00 Acetaminophen/ Hydrocodone Bitart ([place] (5/325)) 1 tab Q6H PRN PO MODERATE PAIN LEVEL 4-6 Last administered on 10/03/16 12:29; Admin Dose 1 TAB; Start at 19:00 Metoprolol Succinate (Toprol Xl) 50 mg BID PO Last administered on 10/14/16 08: 33; Admin Dose 50 MG; Start 09/30/16 at 21:00 Morphine Sulfate (morphine) 2 mg Q4H PRN IV SEVERE PAIN LEVEL 7-10; Start 09/30 at 19:00 Ondansetron HCl (Zofran Inj) 4 mg Q6H PRN IV NAUSEA AND/OR VOMITING; Start at 19:00 Solifenacin (Vesicare) 5 mg DAILY PO Last administered on 10/14/16 08:32; Admin Dose 5 MG; Start 10/01/16 at 09:00 Docusate Sodium (Colace) 100 mg BID PO Last administered on 10/14/16 08:32; Admin Dose 100 MG; Start 09/30/16 at 21:00 Senna (Senokot) 1 tab HS PO Last administered on 10/13/16 20:59; Admin Dose 1 TAB; Start 09/30/16 at 21:00 Magnesium Hydroxide (Milk Of Mag) 30 ml BID PRN PO CONSTIPATION; Start at 19:30 Lactulose (Enulose) 20 gm DAILY PRN PO CONSTIPATION Last administered on 08:41; Admin Dose 20 GM; Start 09/30/16 at 19:30 Miscellaneous Information 1 ea NOTE XX ; Start 09/30/16 at 19:30 Glucose (Glutose) 15 gm Q15M PRN PO DECREASED GLUCOSE; Start 09/30/16 at 19:30 Glucose (Glutose) 22.5 gm Q15M PRN PO DECREASED GLUCOSE; Start 09/30/16 at 19: 30 Dextrose (D50w Syringe) 25 ml Q15M PRN IV DECREASED GLUCOSE; Start 09/30/16 at 19:30 Dextrose (D50w Syringe) 50 ml Q15M PRN IV DECREASED GLUCOSE Last administered on 10/10/16 23:24; Admin Dose 50 ML; Start 09/30/16 at 19:30 Glucagon (Glucagen) 1 mg Q15M PRN IM DECREASED GLUCOSE; Start 09/30/16 at 19:30 Glucose (Glutose) 15 gm Q15M PRN BUCCAL DECREASED GLUCOSE Last administered on 10/11/16 17:38; Admin Dose 15 GM; Start 09/30/16 at 19:30 Patient Own Medication 1 ea DAILY BOTH EYES Last administered on 10/14/16 08:33 ; Admin Dose 1 EA; Start 10/03/16 at 12:00 Linagliptin (Tradjenta) 5 mg DAILY PO Last administered on 10/14/16 08:32; Admin Dose 5 MG; Start 10/07/16 at 09:00 Sodium Biphosphate/ Sodium Phosphate (Fleet Enema) 133 ml DAILY PRN [place] CONSTIPATION; Start 10/07/16 at 10:00 Polyethylene Glycol (Miralax) 17 gm DAILY PRN PO CONSTIPATION; Start 10/07/16 at 11:00 Insulin Glargine (Lantus) 44 unit DAILY SC Last administered on 10/14/16 08:31 ; Admin Dose 44 UNIT; Start 10/11/16 at 09:00 Cyclosporine (Restasis) 1 drop Q12 BOTH EYES Last administered on 10/14/16 08: 33; Admin Dose 1 DROP; Start 10/11/16 at 09:00 Gabapentin (Neurontin) 300 mg BID PO Last administered on 10/14/16 08:32; Admin Dose 300 MG; Start 10/12/16 at 09:00 Assessment/Plan Additional Assessment/Plan Rehab- Toxic Met Enceph/recent CVA continue rehab therapies, overall improving Dysphagia- speech therapy Renal- A/CKD; uremia/UTI HTN DM2 hypothyroidism L1 comp fx SHADY FREEMAN MD October 14, 2016 12:01
--- NOTE | 2016-10-14 12:15 | CONS ---
Date/Time of Note Date/Time of Note DATE: 10/14/16 TIME: 12:14 Consult Date/Type/Reason Admit Date/Time Sep 30, 2016 at 17:35 Type of Consultation: internal medicine Ordering Provider: SOCORRO GARBER MD, [facility] Subjective Comfortable at rest sitting up in chair Objective Vital Signs Date Time Temp Pulse Resp B/P Pulse Ox O2 Delivery O2 Flow Rate FiO2 10/14/16 08:20 98.4 75 18 157/70 95 Intake and Output 10/13/16 10/13/16 10/14/16 15:00 23:00 07:00 Intake Total 460 ml 850 ml Output Total 320 ml Balance 140 ml 850 ml Exam PHYSICAL EXAMINATION: GENERAL: Elderly-appearing lady, comfortable at rest, NECK: Supple. No JVD or lymphadenopathy. CARDIAC: S1, S2, no added sounds or murmurs. CHEST: Diminished air entry bilaterally. ABDOMEN: Soft, nontender. No guarding or rebound. EXTREMITIES: No cyanosis, clubbing, 1+ edema. NEUROLOGIC: No focal deficits Results/Medications Result Diagram: 10/12/1661910/12/16 0620 Results 24 hrs Laboratory Tests Test 10/13/16 12:27 10/13/16 17:34 10/13/16 20:14 10/13/16 20:58 Bedside Glucose 173 206 143 136 Test 10/14/16 07:49 10/14/16 12:01 Bedside Glucose 186 236 H Medications Current Medications Acetaminophen (Tylenol Supp) 650 mg Q6H PRN [place] PAIN LEVEL 1-3 OR FEVER; Start 09/30/16 at 19:00 Acetaminophen (Tylenol Tab) 650 mg Q6H PRN PO PAIN LEVEL 1-3 OR FEVER; Start at 19:00 Aspirin (Halfprin) 81 mg DAILY PO Last administered on 10/14/16 08:33; Admin Dose 81 MG; Start 10/01/16 at 09:00 Atorvastatin Calcium (Lipitor) 80 mg DAILY@21 PO Last administered on 10/13/16 20:59; Admin Dose 80 MG; Start 09/30/16 at 21:00 Bisacodyl (Dulcolax) 5 mg DAILY PRN PO CONSTIPATION Last administered on 08:32; Admin Dose 5 MG; Start 09/30/16 at 19:00 Bisacodyl (Dulcolax Supp) 10 mg DAILY PRN [place] CONSTIPATION Last administered on 10/06/16 20:32; Admin Dose 10 MG; Start 09/30/16 at 19:00 Clopidogrel Bisulfate (plaVIX) 75 mg DAILY PO Last administered on 10/14/16 08: 32; Admin Dose 75 MG; Start 10/01/16 at 09:00 Docusate Sodium (Colace) 100 mg Q12H PRN PO CONSTIPATION Last administered on 08:42; Admin Dose 100 MG; Start 09/30/16 at 19:00 Enoxaparin Sodium (Lovenox) 30 mg DAILY SC Last administered on 10/14/16 08:32 ; Admin Dose 30 MG; Start 10/01/16 at 09:00 Famotidine (Pepcid) 20 mg QHS PO Last administered on 10/13/16 20:59; Admin Dose 20 MG; Start 09/30/16 at 21:00 Hydralazine HCl (Apresoline) 10 mg Q6H PRN IV ELEVATED BP SBP>160 Last administered on 10/08/16 08:48; Admin Dose 10 MG; Start 09/30/16 at 19:00 Acetaminophen/ Hydrocodone Bitart ([place] (5/325)) 1 tab Q6H PRN PO MODERATE PAIN LEVEL 4-6 Last administered on 10/03/16 12:29; Admin Dose 1 TAB; Start at 19:00 Metoprolol Succinate (Toprol Xl) 50 mg BID PO Last administered on 10/14/16 08: 33; Admin Dose 50 MG; Start 09/30/16 at 21:00 Morphine Sulfate (morphine) 2 mg Q4H PRN IV SEVERE PAIN LEVEL 7-10; Start 09/30 at 19:00 Ondansetron HCl (Zofran Inj) 4 mg Q6H PRN IV NAUSEA AND/OR VOMITING; Start at 19:00 Solifenacin (Vesicare) 5 mg DAILY PO Last administered on 10/14/16 08:32; Admin Dose 5 MG; Start 10/01/16 at 09:00 Docusate Sodium (Colace) 100 mg BID PO Last administered on 10/14/16 08:32; Admin Dose 100 MG; Start 09/30/16 at 21:00 Senna (Senokot) 1 tab HS PO Last administered on 10/13/16 20:59; Admin Dose 1 TAB; Start 09/30/16 at 21:00 Magnesium Hydroxide (Milk Of Mag) 30 ml BID PRN PO CONSTIPATION; Start at 19:30 Lactulose (Enulose) 20 gm DAILY PRN PO CONSTIPATION Last administered on 08:41; Admin Dose 20 GM; Start 09/30/16 at 19:30 Miscellaneous Information 1 ea NOTE XX ; Start 09/30/16 at 19:30 Glucose (Glutose) 15 gm Q15M PRN PO DECREASED GLUCOSE; Start 09/30/16 at 19:30 Glucose (Glutose) 22.5 gm Q15M PRN PO DECREASED GLUCOSE; Start 09/30/16 at 19: 30 Dextrose (D50w Syringe) 25 ml Q15M PRN IV DECREASED GLUCOSE; Start 09/30/16 at 19:30 Dextrose (D50w Syringe) 50 ml Q15M PRN IV DECREASED GLUCOSE Last administered on 10/10/16 23:24; Admin Dose 50 ML; Start 09/30/16 at 19:30 Glucagon (Glucagen) 1 mg Q15M PRN IM DECREASED GLUCOSE; Start 09/30/16 at 19:30 Glucose (Glutose) 15 gm Q15M PRN BUCCAL DECREASED GLUCOSE Last administered on 10/11/16 17:38; Admin Dose 15 GM; Start 09/30/16 at 19:30 Patient Own Medication 1 ea DAILY BOTH EYES Last administered on 10/14/16 08:33 ; Admin Dose 1 EA; Start 10/03/16 at 12:00 Linagliptin (Tradjenta) 5 mg DAILY PO Last administered on 10/14/16 08:32; Admin Dose 5 MG; Start 10/07/16 at 09:00 Sodium Biphosphate/ Sodium Phosphate (Fleet Enema) 133 ml DAILY PRN [place] CONSTIPATION; Start 10/07/16 at 10:00 Polyethylene Glycol (Miralax) 17 gm DAILY PRN PO CONSTIPATION; Start 10/07/16 at 11:00 Insulin Glargine (Lantus) 44 unit DAILY SC Last administered on 10/14/16 08:31 ; Admin Dose 44 UNIT; Start 10/11/16 at 09:00 Cyclosporine (Restasis) 1 drop Q12 BOTH EYES Last administered on 10/14/16 08: 33; Admin Dose 1 DROP; Start 10/11/16 at 09:00 Gabapentin (Neurontin) 300 mg BID PO Last administered on 10/14/16 08:32; Admin Dose 300 MG; Start 10/12/16 at 09:00 Assessment/Plan Chief Complaint/Hosp Course IMPRESSION: 1. Recent cerebrovascular accident. 2. Resolved, encephalopathy 3. L1 compression fractures, likely cause of her low back pain. 4. History of insulin-dependent diabetes poorly controlled 5. Essential hypertension. PLAN: 1. Continue physical therapy 2. Endocrinology recommendations appreciated. 3. Continue antihypertensives. 4. DVT and GI prophylaxis. Anticipate discharge to nursing home facility Problems: SOCORRO GARBER MD, [facility] October 14, 2016 12:15
[2016-10-14] MEDS: metFORMIN 500 MG TAB PO SCH (17:20)
--- NOTE | 2016-10-14 19:59 | CONS ---
Date/Time of Note Date/Time of Note DATE: 10/14/16 TIME: 19:56 Assessment/Plan Assessment/Plan Problems: (1) Diabetes mellitus type 2 in obese Status: Chronic Comment: Glucose levels cont. to be erratic. Post-breakfast glucose higher today than yesterday despite increasing am Novolog from yesterday to today. Reevaluate tomorrow. Await T1DM ab panel and c-peptide levels. Consultation Date/Type/Reason Admit Date/Time Sep 30, 2016 at 17:35 Initial Consult Date 10/07/16 Type of Consultation: Endocrinology Reason for Consultation T2DM management Referring Provider: SOCORRO GARBER MD, [facility] 24 HR Interval Summary Constitutional: no complaints Exam/Review of Systems Vital Signs Vitals Bedside Glucose - 72 Hours Test 10/11/16 20:09 10/11/16 23:53 10/12/16 07:25 10/12/16 08:58 Bedside Glucose 152mg/dL (70-220) 267mg/dL (70-220) H 205mg/dL (70-220) 215mg/dL (70-220) Test 10/12/16 12:23 10/12/16 17:34 10/12/16 20:56 10/13/16 08:00 Bedside Glucose 316mg/dL (70-220) H 104mg/dL (70-220) 135mg/dL (70-220) 173mg/dL (70-220) Test 10/13/16 09:04 10/13/16 12:27 10/13/16 17:34 10/13/16 20:14 Bedside Glucose 233mg/dL (70-220) H 173mg/dL (70-220) 206mg/dL (70-220) 143mg/dL (70-220) Test 10/13/16 20:58 10/14/16 07:49 10/14/16 12:01 10/14/16 17:14 Bedside Glucose 136mg/dL (70-220) 186mg/dL (70-220) 236mg/dL (70-220) H 84mg/dL (70-220) Vital Signs Date Time Temp Pulse Resp B/P Pulse Ox O2 Delivery O2 Flow Rate FiO2 10/14/16 08:20 98.4 75 18 157/70 95 Intake and Output 10/13/16 10/13/1617 15:00 23:00 07:00 Intake Total 460 ml 850 ml Output Total 320 ml Balance 140 ml 850 ml Exam Constitutional: alert, obese Respiratory: clear to auscultation, normal air movement Cardiovascular: nl pulses, regular rate and rhythm, No edema, No murmurs/extra sounds, No rub Gastrointestinal: bowel sounds, nl liver, spleen, non-tender, soft, No mass, No rebound or guarding Musculoskeletal: nl extremities to inspection Extremities: normal pulses, No clubbing, No cyanosis, No edema 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: HEPATOLOGIST II-XII intact, nl mental status, nl speech, nl strength Additional Comments Bedside Glucose - 72 Hours Test 10/11/16 20:09 10/11/16 23:53 10/12/16 07:25 10/12/16 08:58 Bedside Glucose 152mg/dL (70-220) 267mg/dL (70-220) H 205mg/dL (70-220) 215mg/dL (70-220) Test 10/12/16 12:23 10/12/16 17:34 10/12/16 20:56 10/13/16 08:00 Bedside Glucose 316mg/dL (70-220) H 104mg/dL (70-220) 135mg/dL (70-220) 173mg/dL (70-220) Test 10/13/16 09:04 10/13/16 12:27 10/13/16 17:34 10/13/16 20:14 Bedside Glucose 233mg/dL (70-220) H 173mg/dL (70-220) 206mg/dL (70-220) 143mg/dL (70-220) Test 10/13/16 20:58 10/14/16 07:49 10/14/16 12:01 10/14/16 17:14 Bedside Glucose 136mg/dL (70-220) 186mg/dL (70-220) 236mg/dL (70-220) H 84mg/dL (70-220) Results Result Diagram: 10/12/1661910/12/16619 Results 24 hrs Laboratory Tests Test 10/13/16 20:14 10/13/16 20:58 10/14/16 07:49 10/14/16 12:01 Bedside Glucose 143 136 186 236 H Test 10/14/16 17:14 Bedside Glucose 84 Medications Medications Current Medications Acetaminophen (Tylenol Supp) 650 mg Q6H PRN [place] PAIN LEVEL 1-3 OR FEVER; Start 09/30/16 at 19:00 Acetaminophen (Tylenol Tab) 650 mg Q6H PRN PO PAIN LEVEL 1-3 OR FEVER; Start at 19:00 Aspirin (Halfprin) 81 mg DAILY PO Last administered on 10/14/16 08:33; Admin Dose 81 MG; Start 10/01/16 at 09:00 Atorvastatin Calcium (Lipitor) 80 mg DAILY@21 PO Last administered on 10/13/16 20:59; Admin Dose 80 MG; Start 09/30/16 at 21:00 Bisacodyl (Dulcolax) 5 mg DAILY PRN PO CONSTIPATION Last administered on 08:32; Admin Dose 5 MG; Start 09/30/16 at 19:00 Bisacodyl (Dulcolax Supp) 10 mg DAILY PRN [place] CONSTIPATION Last administered on 10/06/16 20:32; Admin Dose 10 MG; Start 09/30/16 at 19:00 Clopidogrel Bisulfate (plaVIX) 75 mg DAILY PO Last administered on 10/14/16 08: 32; Admin Dose 75 MG; Start 10/01/16 at 09:00 Docusate Sodium (Colace) 100 mg Q12H PRN PO CONSTIPATION Last administered on 08:42; Admin Dose 100 MG; Start 09/30/16 at 19:00 Enoxaparin Sodium (Lovenox) 30 mg DAILY SC Last administered on 10/14/16 08:32 ; Admin Dose 30 MG; Start 10/01/16 at 09:00 Famotidine (Pepcid) 20 mg QHS PO Last administered on 10/13/16 20:59; Admin Dose 20 MG; Start 09/30/16 at 21:00 Hydralazine HCl (Apresoline) 10 mg Q6H PRN IV ELEVATED BP SBP>160 Last administered on 10/08/16 08:48; Admin Dose 10 MG; Start 09/30/16 at 19:00 Acetaminophen/ Hydrocodone Bitart ([place] (5/325)) 1 tab Q6H PRN PO MODERATE PAIN LEVEL 4-6 Last administered on 10/03/16 12:29; Admin Dose 1 TAB; Start at 19:00 Metoprolol Succinate (Toprol Xl) 50 mg BID PO Last administered on 10/14/16 08: 33; Admin Dose 50 MG; Start 09/30/16 at 21:00 Morphine Sulfate (morphine) 2 mg Q4H PRN IV SEVERE PAIN LEVEL 7-10; Start 09/30 at 19:00 Ondansetron HCl (Zofran Inj) 4 mg Q6H PRN IV NAUSEA AND/OR VOMITING; Start at 19:00 Solifenacin (Vesicare) 5 mg DAILY PO Last administered on 10/14/16 08:32; Admin Dose 5 MG; Start 10/01/16 at 09:00 Docusate Sodium (Colace) 100 mg BID PO Last administered on 10/14/16 08:32; Admin Dose 100 MG; Start 09/30/16 at 21:00 Senna (Senokot) 1 tab HS PO Last administered on 10/13/16 20:59; Admin Dose 1 TAB; Start 09/30/16 at 21:00 Magnesium Hydroxide (Milk Of Mag) 30 ml BID PRN PO CONSTIPATION; Start at 19:30 Lactulose (Enulose) 20 gm DAILY PRN PO CONSTIPATION Last administered on 08:41; Admin Dose 20 GM; Start 09/30/16 at 19:30 Miscellaneous Information 1 ea NOTE XX ; Start 09/30/16 at 19:30 Glucose (Glutose) 15 gm Q15M PRN PO DECREASED GLUCOSE; Start 09/30/16 at 19:30 Glucose (Glutose) 22.5 gm Q15M PRN PO DECREASED GLUCOSE; Start 09/30/16 at 19: 30 Dextrose (D50w Syringe) 25 ml Q15M PRN IV DECREASED GLUCOSE; Start 09/30/16 at 19:30 Dextrose (D50w Syringe) 50 ml Q15M PRN IV DECREASED GLUCOSE Last administered on 10/10/16 23:24; Admin Dose 50 ML; Start 09/30/16 at 19:30 Glucagon (Glucagen) 1 mg Q15M PRN IM DECREASED GLUCOSE; Start 09/30/16 at 19:30 Glucose (Glutose) 15 gm Q15M PRN BUCCAL DECREASED GLUCOSE Last administered on 10/11/16 17:38; Admin Dose 15 GM; Start 09/30/16 at 19:30 Patient Own Medication 1 ea DAILY BOTH EYES Last administered on 10/14/16 08:33 ; Admin Dose 1 EA; Start 10/03/16 at 12:00 Linagliptin (Tradjenta) 5 mg DAILY PO Last administered on 10/14/16 08:32; Admin Dose 5 MG; Start 10/07/16 at 09:00 Sodium Biphosphate/ Sodium Phosphate (Fleet Enema) 133 ml DAILY PRN [place] CONSTIPATION; Start 10/07/16 at 10:00 Polyethylene Glycol (Miralax) 17 gm DAILY PRN PO CONSTIPATION; Start 10/07/16 at 11:00 Insulin Glargine (Lantus) 44 unit DAILY SC Last administered on 10/14/16 08:31 ; Admin Dose 44 UNIT; Start 10/11/16 at 09:00 Cyclosporine (Restasis) 1 drop Q12 BOTH EYES Last administered on 10/14/16 08: 33; Admin Dose 1 DROP; Start 10/11/16 at 09:00 Gabapentin (Neurontin) 300 mg BID PO Last administered on 10/14/16 08:32; Admin Dose 300 MG; Start 10/12/16 at 09:00 ZAINAB NAVA MD October 14, 2016 19:59
[2016-10-14 20:10] VITALS: BP 126/81; RESP 18
[2016-10-14] MEDS: ATORVASTATIN 80 MG TAB PO SCH (20:49)
[2016-10-14] MEDS: FAMOTIDINE 20 MG TAB PO SCH (20:49)
[2016-10-14] MEDS: SENNA TAB PO SCH (20:52)
[2016-10-15] MEDS: INSULIN ASPART [NOVOLOG] 3 ML PEN SC SCH ×7 (08:07→21:00)
[2016-10-15] MEDS: PAZEO BOTH EYES SCH (08:17)
[2016-10-15] MEDS: EYE BOTH EYES SCH (08:17)
[2016-10-15] MEDS: GABAPENTIN 300 MG CAP PO SCH ×2 (08:17→20:52)
[2016-10-15] MEDS: SOLIFENACIN 5 MG TAB PO SCH (08:17)
[2016-10-15] MEDS: CYCLOSPORINE 0.05% OPH DROPERETTE BOTH EYES SCH ×3 (08:17→21:51)
[2016-10-15] MEDS: METOPROLOL (XL) 50 MG TAB PO SCH ×2 (08:22→20:53)
[2016-10-15] MEDS: LINAGLIPTIN 5 MG TABLET PO SCH (08:22)
[2016-10-15] MEDS: ASPIRIN (EC) 81 MG TAB PO SCH (08:22)
[2016-10-15] MEDS: DOCUSATE SODIUM 100 MG CAP PO SCH ×2 (08:22→20:52)
[2016-10-15] MEDS: INSULIN GLARGINE [LANtus] 3 ML PEN SC SCH (08:23)
[2016-10-15] MEDS: ENOXAPARIN 30 MG/0.3 ML SYG SC SCH (08:23)
[2016-10-15] MEDS: CLOPIDOGREL 75 MG TAB PO SCH (08:24)
--- NOTE | 2016-10-15 10:55 | CONS ---
Date/Time of Note Date/Time of Note DATE: 10/15/16 TIME: 10:55 Consult Date/Type/Reason Admit Date/Time Sep 30, 2016 at 17:35 Type of Consultation: Endocrinology Ordering Provider: SOCORRO GARBER MD, [facility] Subjective comfortable Objective pulm-cta abd-soft mod assist Vital Signs Date Time Temp Pulse Resp B/P Pulse Ox O2 Delivery O2 Flow Rate FiO2 10/14/16 20:10 98.7 84 18 126/81 97 Intake and Output 10/14/16 10/14/16 10/15/16 15:00 23:00 07:00 Intake Total 720 ml 1140 ml 700 ml Output Total 350 ml Balance 720 ml 790 ml 700 ml Results/Medications Result Diagram: 10/12/1661910/12/16 0620 Results 24 hrs Laboratory Tests Test 10/14/16 12:01 10/14/16 17:14 10/14/16 21:29 10/15/16 07:58 Bedside Glucose 236 H 84 76 153 Medications Current Medications Acetaminophen (Tylenol Supp) 650 mg Q6H PRN [place] PAIN LEVEL 1-3 OR FEVER; Start 09/30/16 at 19:00 Acetaminophen (Tylenol Tab) 650 mg Q6H PRN PO PAIN LEVEL 1-3 OR FEVER; Start at 19:00 Aspirin (Halfprin) 81 mg DAILY PO Last administered on 10/15/16 08:22; Admin Dose 81 MG; Start 10/01/16 at 09:00 Atorvastatin Calcium (Lipitor) 80 mg DAILY@21 PO Last administered on 10/14/16 20:49; Admin Dose 80 MG; Start 09/30/16 at 21:00 Bisacodyl (Dulcolax) 5 mg DAILY PRN PO CONSTIPATION Last administered on 08:32; Admin Dose 5 MG; Start 09/30/16 at 19:00 Bisacodyl (Dulcolax Supp) 10 mg DAILY PRN [place] CONSTIPATION Last administered on 10/06/16 20:32; Admin Dose 10 MG; Start 09/30/16 at 19:00 Clopidogrel Bisulfate (plaVIX) 75 mg DAILY PO Last administered on 10/15/16 08 :24; Admin Dose 75 MG; Start 10/01/16 at 09:00 Docusate Sodium (Colace) 100 mg Q12H PRN PO CONSTIPATION Last administered on 08:42; Admin Dose 100 MG; Start 09/30/16 at 19:00 Enoxaparin Sodium (Lovenox) 30 mg DAILY SC Last administered on 10/15/16 08:23 ; Admin Dose 30 MG; Start 10/01/16 at 09:00 Famotidine (Pepcid) 20 mg QHS PO Last administered on 10/14/16 20:49; Admin Dose 20 MG; Start 09/30/16 at 21:00 Hydralazine HCl (Apresoline) 10 mg Q6H PRN IV ELEVATED BP SBP>160 Last administered on 10/08/16 08:48; Admin Dose 10 MG; Start 09/30/16 at 19:00 Acetaminophen/ Hydrocodone Bitart ([place] (5/325)) 1 tab Q6H PRN PO MODERATE PAIN LEVEL 4-6 Last administered on 10/03/16 12:29; Admin Dose 1 TAB; Start at 19:00 Metoprolol Succinate (Toprol Xl) 50 mg BID PO Last administered on 10/15/16 08 :22; Admin Dose 50 MG; Start 09/30/16 at 21:00 Morphine Sulfate (morphine) 2 mg Q4H PRN IV SEVERE PAIN LEVEL 7-10; Start 09/30 at 19:00 Ondansetron HCl (Zofran Inj) 4 mg Q6H PRN IV NAUSEA AND/OR VOMITING; Start at 19:00 Solifenacin (Vesicare) 5 mg DAILY PO Last administered on 10/15/16 08:17; Admin Dose 5 MG; Start 10/01/16 at 09:00 Docusate Sodium (Colace) 100 mg BID PO Last administered on 10/15/16 08:22; Admin Dose 100 MG; Start 09/30/16 at 21:00 Senna (Senokot) 1 tab HS PO Last administered on 10/14/16 20:52; Admin Dose 1 TAB; Start 09/30/16 at 21:00 Magnesium Hydroxide (Milk Of Mag) 30 ml BID PRN PO CONSTIPATION; Start at 19:30 Lactulose (Enulose) 20 gm DAILY PRN PO CONSTIPATION Last administered on 08:41; Admin Dose 20 GM; Start 09/30/16 at 19:30 Miscellaneous Information 1 ea NOTE XX ; Start 09/30/16 at 19:30 Glucose (Glutose) 15 gm Q15M PRN PO DECREASED GLUCOSE; Start 09/30/16 at 19:30 Glucose (Glutose) 22.5 gm Q15M PRN PO DECREASED GLUCOSE; Start 09/30/16 at 19: 30 Dextrose (D50w Syringe) 25 ml Q15M PRN IV DECREASED GLUCOSE; Start 09/30/16 at 19:30 Dextrose (D50w Syringe) 50 ml Q15M PRN IV DECREASED GLUCOSE Last administered on 10/10/16 23:24; Admin Dose 50 ML; Start 09/30/16 at 19:30 Glucagon (Glucagen) 1 mg Q15M PRN IM DECREASED GLUCOSE; Start 09/30/16 at 19:30 Glucose (Glutose) 15 gm Q15M PRN BUCCAL DECREASED GLUCOSE Last administered on 10/11/16 17:38; Admin Dose 15 GM; Start 09/30/16 at 19:30 Patient Own Medication 1 ea DAILY BOTH EYES Last administered on 10/15/16 08: 17; Admin Dose 1 EA; Start 10/03/16 at 12:00 Linagliptin (Tradjenta) 5 mg DAILY PO Last administered on 10/15/16 08:22; Admin Dose 5 MG; Start 10/07/16 at 09:00 Sodium Biphosphate/ Sodium Phosphate (Fleet Enema) 133 ml DAILY PRN [place] CONSTIPATION; Start 10/07/16 at 10:00 Polyethylene Glycol (Miralax) 17 gm DAILY PRN PO CONSTIPATION; Start 10/07/16 at 11:00 Insulin Glargine (Lantus) 44 unit DAILY SC Last administered on 10/15/16 08:23 ; Admin Dose 44 UNIT; Start 10/11/16 at 09:00 Cyclosporine (Restasis) 1 drop Q12 BOTH EYES Last administered on 10/15/16 08: 17; Admin Dose 1 DROP; Start 10/11/16 at 09:00 Gabapentin (Neurontin) 300 mg BID PO Last administered on 10/15/16 08:17; Admin Dose 300 MG; Start 10/12/16 at 09:00 Assessment/Plan Additional Assessment/Plan Rehab- Toxic Met Enceph/recent CVA continue current treatment plan Dysphagia- continue speech therapy Renal- A/CKD; uremia/UTI HTN DM2 hypothyroidism L1 comp fx SHADY FREEMAN MD October 15, 2016 10:55
--- NOTE | 2016-10-15 13:43 | CONS ---
Date/Time of Note Date/Time of Note DATE: 10/15/16 TIME: 13:42 Consult Date/Type/Reason Admit Date/Time Sep 30, 2016 at 17:35 Type of Consultation: internal medicine Ordering Provider: SOCORRO GARBER MD, [facility] Subjective Patient stable no new events Objective Vital Signs Date Time Temp Pulse Resp B/P Pulse Ox O2 Delivery O2 Flow Rate FiO2 10/14/16 20:10 98.7 84 18 126/81 97 Intake and Output 10/14/16 10/14/16 10/15/16 15:00 23:00 07:00 Intake Total 720 ml 1140 ml 700 ml Output Total 350 ml Balance 720 ml 790 ml 700 ml Exam GENERAL: Well-nourished, well-developed lady, comfortable at rest, no acute distress. VITAL SIGNS: as above. NECK: Supple. No JVD or lymphadenopathy. CARDIAC: S1, S2, no added sounds or murmurs. CHEST: Diminished air entry bilaterally. ABDOMEN: Soft, nontender. No guarding or rebound. EXTREMITIES: No cyanosis, clubbing, or edema. NEUROLOGIC: Generalized weakness, but no focal deficits. Results/Medications Result Diagram: 10/12/1661910/12/16 0620 Results 24 hrs Laboratory Tests Test 10/14/16 17:14 10/14/16 21:29 10/15/16 07:58 10/15/16 12:14 Bedside Glucose 84 76 153 195 Medications Current Medications Acetaminophen (Tylenol Supp) 650 mg Q6H PRN [place] PAIN LEVEL 1-3 OR FEVER; Start 09/30/16 at 19:00 Acetaminophen (Tylenol Tab) 650 mg Q6H PRN [place] PAIN LEVEL 1-3 OR FEVER; Start at 19:00 Aspirin (Halfprin) 81 mg DAILY PO Last administered on 10/15/16 08:22; Admin Dose 81 MG; Start 10/01/16 at 09:00 Atorvastatin Calcium (Lipitor) 80 mg DAILY@21 PO Last administered on 10/14/16 20:49; Admin Dose 80 MG; Start 09/30/16 at 21:00 Bisacodyl (Dulcolax) 5 mg DAILY PRN PO CONSTIPATION Last administered on 08:32; Admin Dose 5 MG; Start 09/30/16 at 19:00 Bisacodyl (Dulcolax Supp) 10 mg DAILY PRN [place] CONSTIPATION Last administered on 10/06/16 20:32; Admin Dose 10 MG; Start 09/30/16 at 19:00 Clopidogrel Bisulfate (plaVIX) 75 mg DAILY PO Last administered on 10/15/16 08 :24; Admin Dose 75 MG; Start 10/01/16 at 09:00 Docusate Sodium (Colace) 100 mg Q12H PRN PO CONSTIPATION Last administered on 08:42; Admin Dose 100 MG; Start 09/30/16 at 19:00 Enoxaparin Sodium (Lovenox) 30 mg DAILY SC Last administered on 10/15/16 08:23 ; Admin Dose 30 MG; Start 10/01/16 at 09:00 Famotidine (Pepcid) 20 mg QHS PO Last administered on 10/14/16 20:49; Admin Dose 20 MG; Start 09/30/16 at 21:00 Hydralazine HCl (Apresoline) 10 mg Q6H PRN IV ELEVATED BP SBP>160 Last administered on 10/08/16 08:48; Admin Dose 10 MG; Start 09/30/16 at 19:00 Acetaminophen/ Hydrocodone Bitart ([place] (5/325)) 1 tab Q6H PRN PO MODERATE PAIN LEVEL 4-6 Last administered on 10/03/16 12:29; Admin Dose 1 TAB; Start at 19:00 Metoprolol Succinate (Toprol Xl) 50 mg BID PO Last administered on 10/15/16 08 :22; Admin Dose 50 MG; Start 09/30/16 at 21:00 Morphine Sulfate (morphine) 2 mg Q4H PRN IV SEVERE PAIN LEVEL 7-10; Start 09/30 at 19:00 Ondansetron HCl (Zofran Inj) 4 mg Q6H PRN IV NAUSEA AND/OR VOMITING; Start at 19:00 Solifenacin (Vesicare) 5 mg DAILY PO Last administered on 10/15/16 08:17; Admin Dose 5 MG; Start 10/01/16 at 09:00 Docusate Sodium (Colace) 100 mg BID PO Last administered on 10/15/16 08:22; Admin Dose 100 MG; Start 09/30/16 at 21:00 Senna (Senokot) 1 tab HS PO Last administered on 10/14/16 20:52; Admin Dose 1 TAB; Start 09/30/16 at 21:00 Magnesium Hydroxide (Milk Of Mag) 30 ml BID PRN PO CONSTIPATION; Start at 19:30 Lactulose (Enulose) 20 gm DAILY PRN PO CONSTIPATION Last administered on 08:41; Admin Dose 20 GM; Start 09/30/16 at 19:30 Miscellaneous Information 1 ea NOTE XX ; Start 09/30/16 at 19:30 Glucose (Glutose) 15 gm Q15M PRN PO DECREASED GLUCOSE; Start 09/30/16 at 19:30 Glucose (Glutose) 22.5 gm Q15M PRN PO DECREASED GLUCOSE; Start 09/30/16 at 19: 30 Dextrose (D50w Syringe) 25 ml Q15M PRN IV DECREASED GLUCOSE; Start 09/30/16 at 19:30 Dextrose (D50w Syringe) 50 ml Q15M PRN IV DECREASED GLUCOSE Last administered on 10/10/16 23:24; Admin Dose 50 ML; Start 09/30/16 at 19:30 Glucagon (Glucagen) 1 mg Q15M PRN IM DECREASED GLUCOSE; Start 09/30/16 at 19:30 Glucose (Glutose) 15 gm Q15M PRN BUCCAL DECREASED GLUCOSE Last administered on 10/11/16 17:38; Admin Dose 15 GM; Start 09/30/16 at 19:30 Patient Own Medication 1 ea DAILY BOTH EYES Last administered on 10/15/16 08: 17; Admin Dose 1 EA; Start 10/03/16 at 12:00 Linagliptin (Tradjenta) 5 mg DAILY PO Last administered on 10/15/16 08:22; Admin Dose 5 MG; Start 10/07/16 at 09:00 Sodium Biphosphate/ Sodium Phosphate (Fleet Enema) 133 ml DAILY PRN [place] CONSTIPATION; Start 10/07/16 at 10:00 Polyethylene Glycol (Miralax) 17 gm DAILY PRN PO CONSTIPATION; Start 10/07/16 at 11:00 Insulin Glargine (Lantus) 44 unit DAILY SC Last administered on 10/15/16 08:23 ; Admin Dose 44 UNIT; Start 10/11/16 at 09:00 Cyclosporine (Restasis) 1 drop Q12 BOTH EYES Last administered on 10/15/16 08: 17; Admin Dose 1 DROP; Start 10/11/16 at 09:00 Gabapentin (Neurontin) 300 mg BID PO Last administered on 10/15/16 08:17; Admin Dose 300 MG; Start 10/12/16 at 09:00 Assessment/Plan Chief Complaint/Hosp Course IMPRESSION: 1. Recent cerebrovascular accident. 2. Resolved, encephalopathy 3. L1 compression fractures, likely cause of her low back pain. 4. History of insulin-dependent diabetes 5. Essential hypertension. PLAN: 1. Continue physical therapy 2. Endocrinology recommendations 3. Continue antihypertensives. 4. DVT and GI prophylaxis. [facility] Problems: SOCOR[facility] GARBER MD, [facility] October 15, 2016 13:43
[2016-10-15] MEDS: metFORMIN 500 MG TAB PO SCH (17:35)
--- NOTE | 2016-10-15 18:12 | CONS ---
DATE OF ADMISSION: 09/30/2016 DATE OF CONSULTATION: 10/15/2016 PSYCHOLOGY -- INDIVIDUAL SESSION -- 29096. Followup on a patient who was seen last week. The patient was seen with the assistance of radha guevara in [facility] by a nursing director. The patient was feeling better today. The patient was se en sitting up in her wheelchair. The patient's mood was brighter than when seen last week. The pat violeta still feels frustrated about all her medical problems. I tried to help the patient see that he r efforts have helped her increase her overall ability to function. The patient was still very nega tive about her overall health condition. Dictated By: LUIS FERNANDO CHARLTON PHD RK/JEAN Conf#: [id number] DID#: [id number] CC: SHADY FREEMAN MD;*EndCC*
[2016-10-15 20:00] VITALS: BP 136/64; PULSE 77; RESP 18
[2016-10-15] MEDS: FAMOTIDINE 20 MG TAB PO SCH (20:52)
[2016-10-15] MEDS: SENNA TAB PO SCH (20:52)
[2016-10-15] MEDS: ATORVASTATIN 80 MG TAB PO SCH (20:52)
--- NOTE | 2016-10-15 21:12 | CONS ---
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 Difficult to decide to raise or lower any insulin doses at this time based on highs and lows varying from day to day. Await results of T1DM testing and c-peptide. Consultation Date/Type/Reason Admit Date/Time Sep 30, 2016 at 17:35 Initial Consult Date 10/07/16 Type of Consultation: Endocrinology Reason for Consultation T2DM management Referring Provider: SOCORRO GARBER MD, [facility] 24 HR Interval Summary Constitutional: no complaints Exam/Review of Systems Vital Signs Vitals VS - Last 72 Hours, by Label Date Time Temp Pulse Resp B/P Pulse Ox O2 Delivery O2 Flow Rate FiO2 10/14/16 20:10 98.7 84 18 126/81 97 10/14/16 08:20 98.4 75 18 157/70 95 10/13/16 19:46 98.5 87 18 125/87 95 10/13/16 13:23 93 134/70 10/13/16 07:30 98.5 86 18 179/78 94 10/12/16 22:13 98.0 90 18 124/80 97 Vital Signs Date Time Temp Pulse Resp B/P Pulse Ox O2 Delivery O2 Flow Rate FiO2 10/14/16 20:10 98.7 84 18 126/81 97 Intake and Output 10/14/16 10/14/16 10/15/16 15:00 23:00 07:00 Intake Total 720 ml 1140 ml 700 ml Output Total 350 ml Balance 720 ml 790 ml 700 ml Exam Constitutional: alert, obese, oriented Respiratory: clear to auscultation, normal air movement Cardiovascular: nl pulses, regular rate and rhythm, No edema, No murmurs/extra sounds, No rub Gastrointestinal: bowel sounds, nl liver, spleen, non-tender, soft, No mass, No rebound or guarding Musculoskeletal: nl extremities to inspection Extremities: normal pulses, No clubbing, No cyanosis, No edema 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: [employer] II-XII intact, nl mental status, nl speech, nl strength Additional Comments Bedside Glucose - 72 Hours Test 10/13/16 08:00 10/13/16 09:04 10/13/16 12:27 10/13/16 17:34 Bedside Glucose 173mg/dL (70-220) 233mg/dL (70-220) H 173mg/dL (70-220) 206mg/dL (70-220) Test 10/13/16 20:14 10/13/16 20:58 10/14/16 07:49 10/14/16 12:01 Bedside Glucose 143mg/dL (70-220) 136mg/dL (70-220) 186mg/dL (70-220) 236mg/dL (70-220) H Test 10/14/16 17:14 10/14/16 21:29 10/15/16 07:58 10/15/16 12:14 Bedside Glucose 84mg/dL (70-220) 76mg/dL (70-220) 153mg/dL (70-220) 195mg/dL (70-220) Test 10/15/16 17:49 10/15/16 18:04 10/15/16 18:19 10/15/16 18:29 Bedside Glucose 60mg/dL (70-220) L 66mg/dL (70-220) L 71mg/dL (70-220) 81mg/dL (70-220) Test 10/15/16 20:59 Bedside Glucose 111mg/dL (70-220) Results Result Diagram: 10/12/16 0620 10/12/16 0620 Results 24 hrs Laboratory Tests Test 10/14/16 21:29 10/15/16 07:58 10/15/16 12:14 10/15/16 17:49 Bedside Glucose 76 153 195 60 L Test 10/15/16 18:04 10/15/16 18:19 10/15/16 18:29 10/15/16 20:59 Bedside Glucose 66 L 71 81 111 Medications Medications Current Medications Acetaminophen (Tylenol Supp) 650 mg Q6H PRN [place] PAIN LEVEL 1-3 OR FEVER; Start 09/30/16 at 19:00 Acetaminophen (Tylenol Tab) 650 mg Q6H PRN PO PAIN LEVEL 1-3 OR FEVER; Start at 19:00 Aspirin (Halfprin) 81 mg DAILY PO Last administered on 10/15/16t 08:22; Admin Dose 81 MG; Start 10/01/16 at 09:00 Atorvastatin Calcium (Lipitor) 80 mg DAILY@21 PO Last administered on 20:52; Admin Dose 80 MG; Start 09/30/16 at 21:00 Bisacodyl (Dulcolax) 5 mg DAILY PRN PO CONSTIPATION Last administered on 08:32; Admin Dose 5 MG; Start 09/30/16 at 19:00 Bisacodyl (Dulcolax Supp) 10 mg DAILY PRN [place] CONSTIPATION Last administered on 10/06/16 20:32; Admin Dose 10 MG; Start 09/30/16 at 19:00 Clopidogrel Bisulfate (plaVIX) 75 mg DAILY PO Last administered on 10/15/16 08 :24; Admin Dose 75 MG; Start 10/01/16 at 09:00 Docusate Sodium (Colace) 100 mg Q12H PRN PO CONSTIPATION Last administered on 08:42; Admin Dose 100 MG; Start 09/30/16 at 19:00 Enoxaparin Sodium (Lovenox) 30 mg DAILY SC Last administered on 10/15/16 08:23 ; Admin Dose 30 MG; Start 10/01/16 at 09:00 Famotidine (Pepcid) 20 mg QHS PO Last administered on 10/15/16 20:52; Admin Dose 20 MG; Start 09/30/16 at 21:00 Hydralazine HCl (Apresoline) 10 mg Q6H PRN IV ELEVATED BP SBP>160 Last administered on 10/08/16 08:48; Admin Dose 10 MG; Start 09/30/16 at 19:00 Acetaminophen/ Hydrocodone Bitart ([place] (5/325)) 1 tab Q6H PRN PO MODERATE PAIN LEVEL 4-6 Last administered on 10/03/16 12:29; Admin Dose 1 TAB; Start at 19:00 Metoprolol Succinate (Toprol Xl) 50 mg BID PO Last administered on 10/15/16 20 :53; Admin Dose 50 MG; Start 09/30/16 at 21:00 Morphine Sulfate (morphine) 2 mg Q4H PRN IV SEVERE PAIN LEVEL 7-10; Start 09/30 at 19:00 Ondansetron HCl (Zofran Inj) 4 mg Q6H PRN IV NAUSEA AND/OR VOMITING; Start at 19:00 Solifenacin (Vesicare) 5 mg DAILY PO Last administered on 10/15/16 08:17; Admin Dose 5 MG; Start 10/01/16 at 09:00 Docusate Sodium (Colace) 100 mg BID PO Last administered on 10/15/16 20:52; Admin Dose 100 MG; Start 09/30/16 at 21:00 Senna (Senokot) 1 tab HS PO Last administered on 10/15/16 20:52; Admin Dose 1 TAB; Start 09/30/16 at 21:00 Magnesium Hydroxide (Milk Of Mag) 30 ml BID PRN PO CONSTIPATION; Start at 19:30 Lactulose (Enulose) 20 gm DAILY PRN PO CONSTIPATION Last administered on 08:41; Admin Dose 20 GM; Start 09/30/16 at 19:30 Miscellaneous Information 1 ea NOTE XX ; Start 09/30/16 at 19:30 Glucose (Glutose) 15 gm Q15M PRN PO DECREASED GLUCOSE; Start 09/30/16 at 19:30 Glucose (Glutose) 22.5 gm Q15M PRN PO DECREASED GLUCOSE; Start 09/30/16 at 19: 30 Dextrose (D50w Syringe) 25 ml Q15M PRN IV DECREASED GLUCOSE; Start 09/30/16 at 19:30 Dextrose (D50w Syringe) 50 ml Q15M PRN IV DECREASED GLUCOSE Last administered on 10/10/16 23:24; Admin Dose 50 ML; Start 09/30/16 at 19:30 Glucagon (Glucagen) 1 mg Q15M PRN IM DECREASED GLUCOSE; Start 09/30/16 at 19:30 Glucose (Glutose) 15 gm Q15M PRN BUCCAL DECREASED GLUCOSE Last administered on 10/11/16 17:38; Admin Dose 15 GM; Start 09/30/16 at 19:30 Patient Own Medication 1 ea DAILY BOTH EYES Last administered on 10/15/16 08: 17; Admin Dose 1 EA; Start 10/03/16 at 12:00 Linagliptin (Tradjenta) 5 mg DAILY PO Last administered on 10/15/16 08:22; Admin Dose 5 MG; Start 10/07/16 at 09:00 Sodium Biphosphate/ Sodium Phosphate (Fleet Enema) 133 ml DAILY PRN [place] CONSTIPATION; Start 10/07/16 at 10:00 Polyethylene Glycol (Miralax) 17 gm DAILY PRN PO CONSTIPATION; Start 10/07/16 at 11:00 Insulin Glargine (Lantus) 44 unit DAILY SC Last administered on 10/15/16 08:23 ; Admin Dose 44 UNIT; Start 10/11/16 at 09:00 Cyclosporine (Restasis) 1 drop Q12 BOTH EYES Last administered on 10/15/16 08: 17; Admin Dose 1 DROP; Start 10/11/16 at 09:00 Gabapentin (Neurontin) 300 mg BID PO Last administered on 10/15/16 20:52; Admin Dose 300 MG; Start 10/12/16 at 09:00 ZAINAB NAVA MD October 15, 2016 21:12
[2016-10-16 07:30] VITALS: BP 137/60; RESP 18
[2016-10-16] MEDS: METOPROLOL (XL) 50 MG TAB PO SCH ×2 (09:00→20:57)
[2016-10-16] MEDS: ASPIRIN (EC) 81 MG TAB PO SCH (09:00)
[2016-10-16] MEDS: LINAGLIPTIN 5 MG TABLET PO SCH (09:00)
[2016-10-16] MEDS: CLOPIDOGREL 75 MG TAB PO SCH (09:00)
[2016-10-16] MEDS: ENOXAPARIN 30 MG/0.3 ML SYG SC SCH (09:00)
[2016-10-16] MEDS: EYE BOTH EYES SCH (09:00)
[2016-10-16] MEDS: SOLIFENACIN 5 MG TAB PO SCH (09:00)
[2016-10-16] MEDS: GABAPENTIN 300 MG CAP PO SCH ×2 (09:00→20:56)
[2016-10-16] MEDS: CYCLOSPORINE 0.05% OPH DROPERETTE BOTH EYES SCH ×2 (09:00→21:00)
[2016-10-16] MEDS: DOCUSATE SODIUM 100 MG CAP PO SCH ×2 (09:00→20:56)
[2016-10-16] MEDS: INSULIN GLARGINE [LANtus] 3 ML PEN SC SCH (09:00)
[2016-10-16] MEDS: PAZEO BOTH EYES SCH (09:00)
[2016-10-16] MEDS: INSULIN ASPART [NOVOLOG] 3 ML PEN SC SCH ×7 (10:01→21:08)
--- NOTE | 2016-10-16 11:56 | CONS ---
Date/Time of Note Date/Time of Note DATE: 10/16/16 TIME: 11:56 Consult Date/Type/Reason Admit Date/Time Sep 30, 2016 at 17:35 Type of Consultation: Endocrinology Ordering Provider: SOCORRO GARBER MD, [facility] Subjective Improving Objective pulm-cta mod assist transfer Vital Signs Date Time Temp Pulse Resp B/P Pulse Ox O2 Delivery O2 Flow Rate FiO2 10/15/16 20:00 98.4 77 18 136/64 96 Room Air Intake and Output 10/15/16 10/15/16 10/16/16 15:00 23:00 07:00 Intake Total 1200 ml 880 ml Output Total 600 ml 925 ml Balance 1200 ml 280 ml -925 ml Results/Medications Result Diagram: 10/12/1661910/12/16619 Results 24 hrs Laboratory Tests Test 10/15/16 12:14 10/15/16 17:49 10/15/16 18:04 10/15/16 18:19 Bedside Glucose 195 60 L 66 L 71 Test 10/15/16 18:29 10/15/16 20:59 10/16/16 09:57 Bedside Glucose 81 111 100 Medications Current Medications Acetaminophen (Tylenol Supp) 650 mg Q6H PRN [place] PAIN LEVEL 1-3 OR FEVER; Start 09/30/16 at 19:00 Acetaminophen (Tylenol Tab) 650 mg Q6H PRN PO PAIN LEVEL 1-3 OR FEVER; Start at 19:00 Aspirin (Halfprin) 81 mg DAILY PO Last administered on 10/15/16 08:22; Admin Dose 81 MG; Start 10/01/16 at 09:00 Atorvastatin Calcium (Lipitor) 80 mg DAILY@21 PO Last administered on 20:52; Admin Dose 80 MG; Start 09/30/16 at 21:00 Bisacodyl (Dulcolax) 5 mg DAILY PRN PO CONSTIPATION Last administered on 08:32; Admin Dose 5 MG; Start 09/30/16 at 19:00 Bisacodyl (Dulcolax Supp) 10 mg DAILY PRN [place] CONSTIPATION Last administered on 10/06/16 20:32; Admin Dose 10 MG; Start 09/30/16 at 19:00 Clopidogrel Bisulfate (plaVIX) 75 mg DAILY PO Last administered on 10/15/16 08 :24; Admin Dose 75 MG; Start 10/01/16 at 09:00 Docusate Sodium (Colace) 100 mg Q12H PRN PO CONSTIPATION Last administered on 08:42; Admin Dose 100 MG; Start 09/30/16 at 19:00 Enoxaparin Sodium (Lovenox) 30 mg DAILY SC Last administered on 10/15/16 08:23 ; Admin Dose 30 MG; Start 10/01/16 at 09:00 Famotidine (Pepcid) 20 mg QHS PO Last administered on 10/15/16 20:52; Admin Dose 20 MG; Start 09/30/16 at 21:00 Hydralazine HCl (Apresoline) 10 mg Q6H PRN IV ELEVATED BP SBP>160 Last administered on 10/08/16 08:48; Admin Dose 10 MG; Start 09/30/16 at 19:00 Acetaminophen/ Hydrocodone Bitart ([place] (5/325)) 1 tab Q6H PRN PO MODERATE PAIN LEVEL 4-6 Last administered on 10/03/16 12:29; Admin Dose 1 TAB; Start at 19:00 Metoprolol Succinate (Toprol Xl) 50 mg BID PO Last administered on 10/15/16 20 :53; Admin Dose 50 MG; Start 09/30/16 at 21:00 Morphine Sulfate (morphine) 2 mg Q4H PRN IV SEVERE PAIN LEVEL 7-10; Start 09/30 at 19:00 Ondansetron HCl (Zofran Inj) 4 mg Q6H PRN IV NAUSEA AND/OR VOMITING; Start at 19:00 Solifenacin (Vesicare) 5 mg DAILY PO Last administered on 10/15/16 08:17; Admin Dose 5 MG; Start 10/01/16 at 09:00 Docusate Sodium (Colace) 100 mg BID PO Last administered on 10/15/16 20:52; Admin Dose 100 MG; Start 09/30/16 at 21:00 Senna (Senokot) 1 tab HS PO Last administered on 10/15/16 20:52; Admin Dose 1 TAB; Start 09/30/16 at 21:00 Magnesium Hydroxide (Milk Of Mag) 30 ml BID PRN PO CONSTIPATION; Start at 19:30 Lactulose (Enulose) 20 gm DAILY PRN PO CONSTIPATION Last administered on 08:41; Admin Dose 20 GM; Start 09/30/16 at 19:30 Miscellaneous Information 1 ea NOTE XX ; Start 09/30/16 at 19:30 Glucose (Glutose) 15 gm Q15M PRN PO DECREASED GLUCOSE; Start 09/30/16 at 19:30 Glucose (Glutose) 22.5 gm Q15M PRN PO DECREASED GLUCOSE; Start 09/30/16 at 19: 30 Dextrose (D50w Syringe) 25 ml Q15M PRN IV DECREASED GLUCOSE; Start 09/30/16 at 19:30 Dextrose (D50w Syringe) 50 ml Q15M PRN IV DECREASED GLUCOSE Last administered on 10/10/16 23:24; Admin Dose 50 ML; Start 09/30/16 at 19:30 Glucagon (Glucagen) 1 mg Q15M PRN IM DECREASED GLUCOSE; Start 09/30/16 at 19:30 Glucose (Glutose) 15 gm Q15M PRN BUCCAL DECREASED GLUCOSE Last administered on 10/11/16 17:38; Admin Dose 15 GM; Start 09/30/16 at 19:30 Patient Own Medication 1 ea DAILY BOTH EYES Last administered on 10/15/16 08: 17; Admin Dose 1 EA; Start 10/03/16 at 12:00 Linagliptin (Tradjenta) 5 mg DAILY PO Last administered on 10/15/16 08:22; Admin Dose 5 MG; Start 10/07/16 at 09:00 Sodium Biphosphate/ Sodium Phosphate (Fleet Enema) 133 ml DAILY PRN [place] CONSTIPATION; Start 10/07/16 at 10:00 Polyethylene Glycol (Miralax) 17 gm DAILY PRN PO CONSTIPATION; Start 10/07/16 at 11:00 Insulin Glargine (Lantus) 44 unit DAILY SC Last administered on 10/15/16 08:23 ; Admin Dose 44 UNIT; Start 10/11/16 at 09:00 Cyclosporine (Restasis) 1 drop Q12 BOTH EYES Last administered on 10/15/16 21: 51; Admin Dose 1 DROP; Start 10/11/16 at 09:00 Gabapentin (Neurontin) 300 mg BID PO Last administered on 5/10/17at 20:52; Admin Dose 300 MG; Start 10/12/16 at 09:00 Assessment/Plan Additional Assessment/Plan Rehab- Toxic Met Enceph/recent CVA continue rehab program Dysphagia- improving with speech therapy Renal- A/CKD; uremia/UTI HTN DM2 hypothyroidism L1 comp fx SHADY FREEMAN MD October 16, 2016 11:56
--- NOTE | 2016-10-16 13:26 | CONS ---
Date/Time of Note Date/Time of Note DATE: 10/16/16 TIME: 13:24 Consult Date/Type/Reason Admit Date/Time Sep 30, 2016 at 17:35 Type of Consultation: Internal medicine Ordering Provider: SOCORRO GARBER MD, [facility] Subjective Patient refused her insulin medications this morning Subsequently hyperglycemic at present Objective Vital Signs Date Time Temp Pulse Resp B/P Pulse Ox O2 Delivery O2 Flow Rate FiO2 10/15/16 20:00 98.4 77 18 136/64 96 Room Air Intake and Output 10/15/16 10/15/16 10/16/16 15:00 23:00 07:00 Intake Total 1200 ml 880 ml Output Total 600 ml 925 ml Balance 1200 ml 280 ml -925 ml Exam Exam GENERAL: Well-nourished, well-developed lady, comfortable at rest, no acute distress. VITAL SIGNS: as above. NECK: Supple. No JVD or lymphadenopathy. CARDIAC: S1, S2, no added sounds or murmurs. CHEST: Diminished air entry bilaterally. ABDOMEN: Soft, nontender. No guarding or rebound. EXTREMITIES: No cyanosis, clubbing, or edema. NEUROLOGIC: Generalized weakness, but no focal deficits. Results/Medications Result Diagram: 10/12/16 0620 10/12/16 0620 Results 24 hrs Laboratory Tests Test 10/15/16 17:49 10/15/16 18:04 10/15/16 18:19 10/15/16 18:29 Bedside Glucose 60 L 66 L 71 81 Test 10/15/16 20:59 10/16/16 09:57 10/16/16 12:45 Bedside Glucose 111 100 317 H Medications Current Medications Acetaminophen (Tylenol Supp) 650 mg Q6H PRN [place] PAIN LEVEL 1-3 OR FEVER; Start 09/30/16 at 19:00 Acetaminophen (Tylenol Tab) 650 mg Q6H PRN PO PAIN LEVEL 1-3 OR FEVER; Start at 19:00 Aspirin (Halfprin) 81 mg DAILY PO Last administered on 10/15/16 08:22; Admin Dose 81 MG; Start 10/01/16 at 09:00 Atorvastatin Calcium (Lipitor) 80 mg DAILY@21 PO Last administered on 20:52; Admin Dose 80 MG; Start 09/30/16 at 21:00 Bisacodyl (Dulcolax) 5 mg DAILY PRN PO CONSTIPATION Last administered on 08:32; Admin Dose 5 MG; Start 09/30/16 at 19:00 Bisacodyl (Dulcolax Supp) 10 mg DAILY PRN [place] CONSTIPATION Last administered on 10/06/16 20:32; Admin Dose 10 MG; Start 09/30/16 at 19:00 Clopidogrel Bisulfate (plaVIX) 75 mg DAILY PO Last administered on 10/15/16 08 :24; Admin Dose 75 MG; Start 10/01/16 at 09:00 Docusate Sodium (Colace) 100 mg Q12H PRN PO CONSTIPATION Last administered on 08:42; Admin Dose 100 MG; Start 09/30/16 at 19:00 Enoxaparin Sodium (Lovenox) 30 mg DAILY SC Last administered on 10/15/16 08:23 ; Admin Dose 30 MG; Start 10/01/16 at 09:00 Famotidine (Pepcid) 20 mg QHS PO Last administered on 10/15/16 20:52; Admin Dose 20 MG; Start 09/30/16 at 21:00 Hydralazine HCl (Apresoline) 10 mg Q6H PRN IV ELEVATED BP SBP>160 Last administered on 10/08/16 08:48; Admin Dose 10 MG; Start 09/30/16 at 19:00 Acetaminophen/ Hydrocodone Bitart ([place] (5/325)) 1 tab Q6H PRN PO MODERATE PAIN LEVEL 4-6 Last administered on 10/03/16 12:29; Admin Dose 1 TAB; Start at 19:00 Metoprolol Succinate (Toprol Xl) 50 mg BID PO Last administered on 10/15/16 20 :53; Admin Dose 50 MG; Start 09/30/16 at 21:00 Morphine Sulfate (morphine) 2 mg Q4H PRN IV SEVERE PAIN LEVEL 7-10; Start 09/30 at 19:00 Ondansetron HCl (Zofran Inj) 4 mg Q6H PRN IV NAUSEA AND/OR VOMITING; Start at 19:00 Solifenacin (Vesicare) 5 mg DAILY PO Last administered on 10/15/16 08:17; Admin Dose 5 MG; Start 10/01/16 at 09:00 Docusate Sodium (Colace) 100 mg BID PO Last administered on 10/15/16 20:52; Admin Dose 100 MG; Start 09/30/16 at 21:00 Senna (Senokot) 1 tab HS PO Last administered on 10/15/16 20:52; Admin Dose 1 TAB; Start 09/30/16 at 21:00 Magnesium Hydroxide (Milk Of Mag) 30 ml BID PRN PO CONSTIPATION; Start at 19:30 Lactulose (Enulose) 20 gm DAILY PRN PO CONSTIPATION Last administered on 08:41; Admin Dose 20 GM; Start 09/30/16 at 19:30 Miscellaneous Information 1 ea NOTE XX ; Start 09/30/16 at 19:30 Glucose (Glutose) 15 gm Q15M PRN PO DECREASED GLUCOSE; Start 09/30/16 at 19:30 Glucose (Glutose) 22.5 gm Q15M PRN PO DECREASED GLUCOSE; Start 09/30/16 at 19: 30 Dextrose (D50w Syringe) 25 ml Q15M PRN IV DECREASED GLUCOSE; Start 09/30/16 at 19:30 Dextrose (D50w Syringe) 50 ml Q15M PRN IV DECREASED GLUCOSE Last administered on 10/10/16 23:24; Admin Dose 50 ML; Start 09/30/16 at 19:30 Glucagon (Glucagen) 1 mg Q15M PRN IM DECREASED GLUCOSE; Start 09/30/16 at 19:30 Glucose (Glutose) 15 gm Q15M PRN BUCCAL DECREASED GLUCOSE Last administered on 10/11/16 17:38; Admin Dose 15 GM; Start 09/30/16 at 19:30 Patient Own Medication 1 ea DAILY BOTH EYES Last administered on 10/15/16 08: 17; Admin Dose 1 EA; Start 10/03/16 at 12:00 Linagliptin (Tradjenta) 5 mg DAILY PO Last administered on 10/15/16 08:22; Admin Dose 5 MG; Start 10/07/16 at 09:00 Sodium Biphosphate/ Sodium Phosphate (Fleet Enema) 133 ml DAILY PRN [place] CONSTIPATION; Start 10/07/16 at 10:00 Polyethylene Glycol (Miralax) 17 gm DAILY PRN PO CONSTIPATION; Start 10/07/16 at 11:00 Insulin Glargine (Lantus) 44 unit DAILY SC Last administered on 10/15/16 08:23 ; Admin Dose 44 UNIT; Start 10/11/16 at 09:00 Cyclosporine (Restasis) 1 drop Q12 BOTH EYES Last administered on 10/15/16 21: 51; Admin Dose 1 DROP; Start 10/11/16 at 09:00 Gabapentin (Neurontin) 300 mg BID PO Last administered on 10/15/16 20:52; Admin Dose 300 MG; Start 10/12/16 at 09:00 Assessment/Plan Chief Complaint/Hosp Course IMPRESSION: 1. Recent cerebrovascular accident. 2. Resolved, encephalopathy 3. L1 compression fractures, likely cause of her low back pain. 4. History of insulin-dependent diabetes 5. Essential hypertension. PLAN: 1. Continue physical therapy 2. Endocrinology recommendations 3. Continue antihypertensives. 4. DVT and GI prophylaxis. May require an steel die printer to explain importance of compliance with medications Problems: SOCORRO GARBER MD, [facility] October 16, 2016 13:26
[2016-10-16] MEDS: metFORMIN 500 MG TAB PO SCH (17:57)
--- NOTE | 2016-10-16 19:03 | CONS ---
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 w/ single hypoglycemic episode yesterday and consequently refused her lantus dose today. Now hyperglycemic and expect this to persist until tomorrow. Still awaiting T1DM panel to decide if erratic glycemic control is due to T1DM or due to erratic food intake. Consultation Date/Type/Reason Admit Date/Time Sep 30, 2016 at 17:35 Initial Consult Date 10/07/16 Type of Consultation: Endocrinology Reason for Consultation T2DM management Referring Provider: SOCORRO GARBER MD, [facility] 24 HR Interval Summary Constitutional: no complaints Exam/Review of Systems Vital Signs Vitals VS - Last 72 Hours, by Label Date Time Temp Pulse Resp B/P Pulse Ox O2 Delivery O2 Flow Rate FiO2 10/16/16 07:30 97.8 69 18 137/60 96 10/15/16 20:00 98.4 77 18 136/64 96 Room Air 10/14/16 20:10 98.7 84 18 126/81 97 10/14/16 08:20 98.4 75 18 157/70 95 10/13/16 19:46 98.5 87 18 125/87 95 Vital Signs Date Time Temp Pulse Resp B/P Pulse Ox O2 Delivery O2 Flow Rate FiO2 10/16/16 07:30 97.8 69 18 137/60 96 10/15/16 20:00 Room Air Intake and Output 10/15/16 10/15/16 10/16/16 15:00 23:00 07:00 Intake Total 1200 ml 880 ml Output Total 600 ml 925 ml Balance 1200 ml 280 ml -925 ml Exam Constitutional: alert, obese Respiratory: clear to auscultation, normal air movement Cardiovascular: nl pulses, regular rate and rhythm, No edema, No murmurs/extra sounds, No rub Gastrointestinal: bowel sounds, nl liver, spleen, non-tender, soft, No mass, No rebound or guarding Musculoskeletal: nl extremities to inspection Extremities: normal pulses, No clubbing, No cyanosis, No edema 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, nl mental status, nl speech, nl strength Additional Comments Bedside Glucose - 72 Hours Test 10/13/16 20:14 10/13/16 20:58 10/14/16 07:49 10/14/16 12:01 Bedside Glucose 143mg/dL (70-220) 136mg/dL (70-220) 186mg/dL (70-220) 236mg/dL (70-220) H Test 10/14/16 17:14 10/14/16 21:29 10/15/16 07:58 10/15/16 12:14 Bedside Glucose 84mg/dL (70-220) 76mg/dL (70-220) 153mg/dL (70-220) 195mg/dL (70-220) Test 10/15/16 17:27 10/15/16 17:49 10/15/16 18:04 10/15/16 18:19 Bedside Glucose 44mg/dL (70-220) *L 60mg/dL (70-220) L 66mg/dL (70-220) L 71mg/dL (70-220) Test 10/15/16 18:29 10/15/16 20:59 10/16/16 09:57 10/16/16 12:45 Bedside Glucose 81mg/dL (70-220) 111mg/dL (70-220) 100mg/dL (70-220) 317mg/dL (70-220) H Test 10/16/16 17:44 Bedside Glucose 287mg/dL (70-220) H Results Result Diagram: 10/12/1661910/12/1620 Results 24 hrs Laboratory Tests Test 10/15/16 20:59 10/16/16 09:57 10/16/16 12:45 10/16/16 17:44 Bedside Glucose 111 100 317 H 287 H Medications Medications Current Medications Acetaminophen (Tylenol Supp) 650 mg Q6H PRN [place] PAIN LEVEL 1-3 OR FEVER; Start 09/30/16 at 19:00 Acetaminophen (Tylenol Tab) 650 mg Q6H PRN PO PAIN LEVEL 1-3 OR FEVER; Start at 19:00 Aspirin (Halfprin) 81 mg DAILY PO Last administered on 10/15/16 08:22; Admin Dose 81 MG; Start 10/01/16 at 09:00 Atorvastatin Calcium (Lipitor) 80 mg DAILY@21 PO Last administered on 20:52; Admin Dose 80 MG; Start 09/30/16 at 21:00 Bisacodyl (Dulcolax) 5 mg DAILY PRN PO CONSTIPATION Last administered on 08:32; Admin Dose 5 MG; Start 09/30/16 at 19:00 Bisacodyl (Dulcolax Supp) 10 mg DAILY PRN [place] CONSTIPATION Last administered on 10/06/16 20:32; Admin Dose 10 MG; Start 09/30/16 at 19:00 Clopidogrel Bisulfate (plaVIX) 75 mg DAILY PO Last administered on 10/15/16 08 :24; Admin Dose 75 MG; Start 10/01/16 at 09:00 Docusate Sodium (Colace) 100 mg Q12H PRN PO CONSTIPATION Last administered on 08:42; Admin Dose 100 MG; Start 09/30/16 at 19:00 Enoxaparin Sodium (Lovenox) 30 mg DAILY SC Last administered on 10/15/16 08:23 ; Admin Dose 30 MG; Start 10/01/16 at 09:00 Famotidine (Pepcid) 20 mg QHS PO Last administered on 10/15/16 20:52; Admin Dose 20 MG; Start 09/30/16 at 21:00 Hydralazine HCl (Apresoline) 10 mg Q6H PRN IV ELEVATED BP SBP>160 Last administered on 10/08/16 08:48; Admin Dose 10 MG; Start 09/30/16 at 19:00 Acetaminophen/ Hydrocodone Bitart ([place] (5/325)) 1 tab Q6H PRN PO MODERATE PAIN LEVEL 4-6 Last administered on 10/03/16 12:29; Admin Dose 1 TAB; Start at 19:00 Metoprolol Succinate (Toprol Xl) 50 mg BID PO Last administered on 10/15/16 20 :53; Admin Dose 50 MG; Start 09/30/16 at 21:00 Morphine Sulfate (morphine) 2 mg Q4H PRN IV SEVERE PAIN LEVEL 7-10; Start 09/30 at 19:00 Ondansetron HCl (Zofran Inj) 4 mg Q6H PRN IV NAUSEA AND/OR VOMITING; Start at 19:00 Solifenacin (Vesicare) 5 mg DAILY PO Last administered on 10/15/16 08:17; Admin Dose 5 MG; Start 10/01/16 at 09:00 Docusate Sodium (Colace) 100 mg BID PO Last administered on 10/15/16 20:52; Admin Dose 100 MG; Start 09/30/16 at 21:00 Senna (Senokot) 1 tab HS PO Last administered on 10/15/16 20:52; Admin Dose 1 TAB; Start 09/30/16 at 21:00 Magnesium Hydroxide (Milk Of Mag) 30 ml BID PRN PO CONSTIPATION; Start at 19:30 Lactulose (Enulose) 20 gm DAILY PRN PO CONSTIPATION Last administered on 08:41; Admin Dose 20 GM; Start 09/30/16 at 19:30 Miscellaneous Information 1 ea NOTE XX ; Start 09/30/16 at 19:30 Glucose (Glutose) 15 gm Q15M PRN PO DECREASED GLUCOSE; Start 09/30/16 at 19:30 Glucose (Glutose) 22.5 gm Q15M PRN PO DECREASED GLUCOSE; Start 09/30/16 at 19: 30 Dextrose (D50w Syringe) 25 ml Q15M PRN IV DECREASED GLUCOSE; Start 09/30/16 at 19:30 Dextrose (D50w Syringe) 50 ml Q15M PRN IV DECREASED GLUCOSE Last administered on 10/10/16 23:24; Admin Dose 50 ML; Start 09/30/16 at 19:30 Glucagon (Glucagen) 1 mg Q15M PRN IM DECREASED GLUCOSE; Start 09/30/16 at 19:30 Glucose (Glutose) 15 gm Q15M PRN BUCCAL DECREASED GLUCOSE Last administered on 10/11/16 17:38; Admin Dose 15 GM; Start 09/30/16 at 19:30 Patient Own Medication 1 ea DAILY BOTH EYES Last administered on 10/15/16 08: 17; Admin Dose 1 EA; Start 10/03/16 at 12:00 Linagliptin (Tradjenta) 5 mg DAILY PO Last administered on 10/15/16 08:22; Admin Dose 5 MG; Start 10/07/16 at 09:00 Sodium Biphosphate/ Sodium Phosphate (Fleet Enema) 133 ml DAILY PRN [place] CONSTIPATION; Start 10/07/16 at 10:00 Polyethylene Glycol (Miralax) 17 gm DAILY PRN PO CONSTIPATION; Start 10/07/16 at 11:00 Insulin Glargine (Lantus) 44 unit DAILY SC Last administered on 10/15/16 08:23 ; Admin Dose 44 UNIT; Start 10/11/16 at 09:00 Cyclosporine (Restasis) 1 drop Q12 BOTH EYES Last administered on 10/15/16 21: 51; Admin Dose 1 DROP; Start 10/11/16 at 09:00 Gabapentin (Neurontin) 300 mg BID PO Last administered on 10/15/16 20:52; Admin Dose 300 MG; Start 10/12/16 at 09:00 ZAINAB NAVA MD October 16, 2016 19:03
[2016-10-16 19:54] VITALS: BP 164/70; RESP 20
[2016-10-16] MEDS: ATORVASTATIN 80 MG TAB PO SCH (20:55)
[2016-10-16] MEDS: SENNA TAB PO SCH (20:56)
[2016-10-16] MEDS: FAMOTIDINE 20 MG TAB PO SCH (20:56)
[2016-10-17 08:02] VITALS: BP 151/65; RESP 18
[2016-10-17] MEDS: INSULIN ASPART [NOVOLOG] 3 ML PEN SC SCH ×7 (08:15→21:37)
[2016-10-17] MEDS: EYE BOTH EYES SCH (09:00)
[2016-10-17] MEDS: PAZEO BOTH EYES SCH (09:00)
[2016-10-17] MEDS: INSULIN GLARGINE [LANtus] 3 ML PEN SC SCH (09:03)
[2016-10-17] MEDS: CYCLOSPORINE 0.05% OPH DROPERETTE BOTH EYES SCH ×2 (11:00→21:22)
[2016-10-17] MEDS: METOPROLOL (XL) 50 MG TAB PO SCH ×2 (11:00→21:23)
[2016-10-17] MEDS: LINAGLIPTIN 5 MG TABLET PO SCH (11:00)
[2016-10-17] MEDS: GABAPENTIN 300 MG CAP PO SCH ×2 (11:01→21:22)
[2016-10-17] MEDS: DOCUSATE SODIUM 100 MG CAP PO SCH ×2 (11:01→21:22)
[2016-10-17] MEDS: CLOPIDOGREL 75 MG TAB PO SCH (11:01)
[2016-10-17] MEDS: ENOXAPARIN 30 MG/0.3 ML SYG SC SCH (11:01)
[2016-10-17] MEDS: ASPIRIN (EC) 81 MG TAB PO SCH (11:01)
[2016-10-17] MEDS: SOLIFENACIN 5 MG TAB PO SCH (11:01)
--- NOTE | 2016-10-17 12:39 | CONS ---
Date/Time of Note Date/Time of Note DATE: 10/17/16 TIME: 12:38 Consult Date/Type/Reason Admit Date/Time Sep 30, 2016 at 17:35 Type of Consultation: Endocrinology Ordering Provider: SOCORRO GARBER MD, [facility] Subjective overall improved Objective pulm-cta abd-soft Vital Signs Date Time Temp Pulse Resp B/P Pulse Ox O2 Delivery O2 Flow Rate FiO2 10/17/16 08:02 98.0 70 18 151/65 94 10/15/16 20:00 Room Air Intake and Output 10/16/16 10/16/16 10/17/16 15:00 23:00 07:00 Intake Total 100 ml 560 ml 240 ml Output Total 151 ml Balance 100 ml 560 ml 89 ml Results/Medications Results 24 hrs Laboratory Tests Test 10/16/16 12:45 10/16/16 17:44 10/16/16 21:03 10/17/16 08:10 Bedside Glucose 317 H 287 H 253 H 257 H Test 10/17/16 08:56 10/17/16 12:02 Bedside Glucose 288 H 384 H Medications Current Medications Acetaminophen (Tylenol Supp) 650 mg Q6H PRN [place] PAIN LEVEL 1-3 OR FEVER; Start 09/30/16 at 19:00 Acetaminophen (Tylenol Tab) 650 mg Q6H PRN PO PAIN LEVEL 1-3 OR FEVER; Start at 19:00 Aspirin (Halfprin) 81 mg DAILY PO Last administered on 10/17/16 11:01; Admin Dose 81 MG; Start 10/01/16 at 09:00 Atorvastatin Calcium (Lipitor) 80 mg DAILY@21 PO Last administered on 20:55; Admin Dose 80 MG; Start 09/30/16 at 21:00 Bisacodyl (Dulcolax) 5 mg DAILY PRN PO CONSTIPATION Last administered on 08:32; Admin Dose 5 MG; Start 09/30/16 at 19:00 Bisacodyl (Dulcolax Supp) 10 mg DAILY PRN [place] CONSTIPATION Last administered on 10/06/16 20:32; Admin Dose 10 MG; Start 09/30/16 at 19:00 Clopidogrel Bisulfate (plaVIX) 75 mg DAILY PO Last administered on 10/17/16 11 :01; Admin Dose 75 MG; Start 10/01/16 at 09:00 Docusate Sodium (Colace) 100 mg Q12H PRN PO CONSTIPATION Last administered on 08:42; Admin Dose 100 MG; Start 09/30/16 at 19:00 Enoxaparin Sodium (Lovenox) 30 mg DAILY SC Last administered on 10/17/16 11:01 ; Admin Dose 30 MG; Start 10/01/16 at 09:00 Famotidine (Pepcid) 20 mg QHS PO Last administered on 10/16/16 20:56; Admin Dose 20 MG; Start 09/30/16 at 21:00 Hydralazine HCl (Apresoline) 10 mg Q6H PRN IV ELEVATED BP SBP>160 Last administered on 10/08/16 08:48; Admin Dose 10 MG; Start 09/30/16 at 19:00 Acetaminophen/ Hydrocodone Bitart ([place] (5/325)) 1 tab Q6H PRN PO MODERATE PAIN LEVEL 4-6 Last administered on 10/03/16 12:29; Admin Dose 1 TAB; Start at 19:00 Metoprolol Succinate (Toprol Xl) 50 mg BID PO Last administered on 10/17/16 11 :00; Admin Dose 50 MG; Start 09/30/16 at 21:00 Morphine Sulfate (morphine) 2 mg Q4H PRN IV SEVERE PAIN LEVEL 7-10; Start 09/30 at 19:00 Ondansetron HCl (Zofran Inj) 4 mg Q6H PRN IV NAUSEA AND/OR VOMITING; Start at 19:00 Solifenacin (Vesicare) 5 mg DAILY PO Last administered on 10/17/16 11:01; Admin Dose 5 MG; Start 10/01/16 at 09:00 Docusate Sodium (Colace) 100 mg BID PO Last administered on 10/17/16 11:01; Admin Dose 100 MG; Start 09/30/16 at 21:00 Senna (Senokot) 1 tab HS PO Last administered on 10/16/16 20:56; Admin Dose 1 TAB; Start 09/30/16 at 21:00 Magnesium Hydroxide (Milk Of Mag) 30 ml BID PRN PO CONSTIPATION; Start at 19:30 Lactulose (Enulose) 20 gm DAILY PRN PO CONSTIPATION Last administered on 08:41; Admin Dose 20 GM; Start 09/30/16 at 19:30 Miscellaneous Information 1 ea NOTE XX ; Start 09/30/16 at 19:30 Glucose (Glutose) 15 gm Q15M PRN PO DECREASED GLUCOSE; Start 09/30/16 at 19:30 Glucose (Glutose) 22.5 gm Q15M PRN PO DECREASED GLUCOSE; Start 09/30/16 at 19: 30 Dextrose (D50w Syringe) 25 ml Q15M PRN IV DECREASED GLUCOSE; Start 09/30/16 at 19:30 Dextrose (D50w Syringe) 50 ml Q15M PRN IV DECREASED GLUCOSE Last administered on 10/10/16 23:24; Admin Dose 50 ML; Start 09/30/16 at 19:30 Glucagon (Glucagen) 1 mg Q15M PRN IM DECREASED GLUCOSE; Start 09/30/16 at 19:30 Glucose (Glutose) 15 gm Q15M PRN BUCCAL DECREASED GLUCOSE Last administered on 10/11/16 17:38; Admin Dose 15 GM; Start 09/30/16 at 19:30 Patient Own Medication 1 ea DAILY BOTH EYES Last administered on 10/15/16 08: 17; Admin Dose 1 EA; Start 10/03/16 at 12:00 Linagliptin (Tradjenta) 5 mg DAILY PO Last administered on 10/17/16 11:00; Admin Dose 5 MG; Start 10/07/16 at 09:00 Sodium Biphosphate/ Sodium Phosphate (Fleet Enema) 133 ml DAILY PRN [place] CONSTIPATION; Start 10/07/16 at 10:00 Polyethylene Glycol (Miralax) 17 gm DAILY PRN PO CONSTIPATION; Start 10/07/16 at 11:00 Insulin Glargine (Lantus) 44 unit DAILY SC Last administered on 10/17/16 09:03 ; Admin Dose 44 UNIT; Start 10/11/16 at 09:00 Cyclosporine (Restasis) 1 drop Q12 BOTH EYES Last administered on 10/17/16 11: 00; Admin Dose 1 DROP; Start 10/11/16 at 09:00 Gabapentin (Neurontin) 300 mg BID PO Last administered on 10/17/16 11:01; Admin Dose 300 MG; Start 5/7/17 at 09:00 Assessment/Plan Additional Assessment/Plan Rehab- Toxic Met Enceph/recent CVA continue rehab program. Family lookingto have patient return home this weekend Dysphagia- improving with speech therapy Renal- A/CKD; uremia/UTI HTN DM2 hypothyroidism L1 comp fx SHADY FREEMAN MD October 17, 2016 12:39
--- NOTE | 2016-10-17 13:12 | PN ---
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 except yes no refused insulin yesterday, sugars are high, on mod intensity premeal and basal insulin, lets give it one more day before increasing doses further as did have a hypo episode intake is eratic awake, lungs clear Neurologic: confusion Exam/Review of Systems Vital Signs Vitals Vital Signs Date Time Temp Pulse Resp B/P Pulse Ox O2 Delivery O2 Flow Rate FiO2 10/17/16 08:02 98.0 70 18 151/65 94 10/15/16 20:00 Room Air Intake and Output 10/16/16 10/16/16 10/17/16 14:59 22:59 06:59 Intake Total 100 ml 560 ml 240 ml Output Total 151 ml Balance 100 ml 560 ml 89 ml Results Results 24 hrs Laboratory Tests Test 10/16/16 17:44 10/16/16 21:03 10/17/16 08:10 10/17/16 08:56 Bedside Glucose 287 H 253 H 257 H 288 H Test 10/17/16 12:02 Bedside Glucose 384 H Medications Medications Current Medications Acetaminophen (Tylenol Supp) 650 mg Q6H PRN [place] PAIN LEVEL 1-3 OR FEVER; Start 09/30/16 at 19:00 Acetaminophen (Tylenol Tab) 650 mg Q6H PRN PO PAIN LEVEL 1-3 OR FEVER; Start at 19:00 Aspirin (Halfprin) 81 mg DAILY PO Last administered on 10/17/16 11:01; Admin Dose 81 MG; Start 10/01/16 at 09:00 Atorvastatin Calcium (Lipitor) 80 mg DAILY@21 PO Last administered on 20:55; Admin Dose 80 MG; Start 09/30/16 at 21:00 Bisacodyl (Dulcolax) 5 mg DAILY PRN PO CONSTIPATION Last administered on 08:32; Admin Dose 5 MG; Start 09/30/16 at 19:00 Bisacodyl (Dulcolax Supp) 10 mg DAILY PRN [place] CONSTIPATION Last administered on 10/06/16 20:32; Admin Dose 10 MG; Start 09/30/16 at 19:00 Clopidogrel Bisulfate (plaVIX) 75 mg DAILY PO Last administered on 10/17/16 11 :01; Admin Dose 75 MG; Start 10/01/16 at 09:00 Docusate Sodium (Colace) 100 mg Q12H PRN PO CONSTIPATION Last administered on 08:42; Admin Dose 100 MG; Start 09/30/16 at 19:00 Enoxaparin Sodium (Lovenox) 30 mg DAILY SC Last administered on 10/17/16 11:01 ; Admin Dose 30 MG; Start 10/01/16 at 09:00 Famotidine (Pepcid) 20 mg QHS PO Last administered on 10/16/16 20:56; Admin Dose 20 MG; Start 09/30/16 at 21:00 Hydralazine HCl (Apresoline) 10 mg Q6H PRN IV ELEVATED BP SBP>160 Last administered on 10/08/16 08:48; Admin Dose 10 MG; Start 09/30/16 at 19:00 Acetaminophen/ Hydrocodone Bitart ([place] (5/325)) 1 tab Q6H PRN PO MODERATE PAIN LEVEL 4-6 Last administered on 10/03/16 12:29; Admin Dose 1 TAB; Start at 19:00 Metoprolol Succinate (Toprol Xl) 50 mg BID PO Last administered on 10/17/16 11 :00; Admin Dose 50 MG; Start 09/30/16 at 21:00 Morphine Sulfate (morphine) 2 mg Q4H PRN IV SEVERE PAIN LEVEL 7-10; Start 09/30 at 19:00 Ondansetron HCl (Zofran Inj) 4 mg Q6H PRN IV NAUSEA AND/OR VOMITING; Start at 19:00 Solifenacin (Vesicare) 5 mg DAILY PO Last administered on 10/17/16 11:01; Admin Dose 5 MG; Start 10/01/16 at 09:00 Docusate Sodium (Colace) 100 mg BID PO Last administered on 10/17/16 11:01; Admin Dose 100 MG; Start 09/30/16 at 21:00 Senna (Senokot) 1 tab HS PO Last administered on 10/16/16 20:56; Admin Dose 1 TAB; Start 09/30/16 at 21:00 Magnesium Hydroxide (Milk Of Mag) 30 ml BID PRN PO CONSTIPATION; Start at 19:30 Lactulose (Enulose) 20 gm DAILY PRN PO CONSTIPATION Last administered on 08:41; Admin Dose 20 GM; Start 09/30/16 at 19:30 Miscellaneous Information 1 ea NOTE XX ; Start 09/30/16 at 19:30 Glucose (Glutose) 15 gm Q15M PRN PO DECREASED GLUCOSE; Start 09/30/16 at 19:30 Glucose (Glutose) 22.5 gm Q15M PRN PO DECREASED GLUCOSE; Start 09/30/16 at 19: 30 Dextrose (D50w Syringe) 25 ml Q15M PRN IV DECREASED GLUCOSE; Start 09/30/16 at 19:30 Dextrose (D50w Syringe) 50 ml Q15M PRN IV DECREASED GLUCOSE Last administered on 10/10/16 23:24; Admin Dose 50 ML; Start 09/30/16 at 19:30 Glucagon (Glucagen) 1 mg Q15M PRN IM DECREASED GLUCOSE; Start 09/30/16 at 19:30 Glucose (Glutose) 15 gm Q15M PRN BUCCAL DECREASED GLUCOSE Last administered on 10/11/16 17:38; Admin Dose 15 GM; Start 09/30/16 at 19:30 Patient Own Medication 1 ea DAILY BOTH EYES Last administered on 10/15/16 08: 17; Admin Dose 1 EA; Start 10/03/16 at 12:00 Linagliptin (Tradjenta) 5 mg DAILY PO Last administered on 10/17/16 11:00; Admin Dose 5 MG; Start 10/07/16 at 09:00 Sodium Biphosphate/ Sodium Phosphate (Fleet Enema) 133 ml DAILY PRN [place] CONSTIPATION; Start 10/07/16 at 10:00 Polyethylene Glycol (Miralax) 17 gm DAILY PRN PO CONSTIPATION; Start 10/07/16 at 11:00 Insulin Glargine (Lantus) 44 unit DAILY SC Last administered on 10/17/16 09:03 ; Admin Dose 44 UNIT; Start 10/11/16 at 09:00 Cyclosporine (Restasis) 1 drop Q12 BOTH EYES Last administered on 5/12/17at 11: 00; Admin Dose 1 DROP; Start 10/11/16 at 09:00 Gabapentin (Neurontin) 300 mg BID PO Last administered on 10/17/16t 11:01; Admin Dose 300 MG; Start 10/12/16 at 09:00 FABRICE GARCIA MD October 17, 2016 13:12
--- NOTE | 2016-10-17 15:45 | CONS ---
Date/Time of Note Date/Time of Note DATE: 10/17/16 TIME: 15:44 Consult Date/Type/Reason Admit Date/Time Sep 30, 2016 at 17:35 Type of Consultation: Internal Medicine Ordering Provider: SOCORRO GARBER MD, [facility] Subjective Comfortable, no events. Objective Vital Signs Date Time Temp Pulse Resp B/P Pulse Ox O2 Delivery O2 Flow Rate FiO2 10/17/16 08:02 98.0 70 18 151/65 94 10/15/16 20:00 Room Air Intake and Output 10/16/16 10/16/16 10/17/16 15:00 23:00 07:00 Intake Total 100 ml 560 ml 240 ml Output Total 151 ml Balance 100 ml 560 ml 89 ml Exam GENERAL: Well-nourished, well-developed lady, comfortable at rest, no acute distress. VITAL SIGNS: as above. NECK: Supple. No JVD or lymphadenopathy. CARDIAC: S1, S2, no added sounds or murmurs. CHEST: Diminished air entry bilaterally. ABDOMEN: Soft, nontender. No guarding or rebound. EXTREMITIES: No cyanosis, clubbing, or edema. NEUROLOGIC: Generalized weakness, but no focal deficits. Results/Medications Results 24 hrs Laboratory Tests Test 10/16/16 17:44 10/16/16 21:03 10/17/16 08:10 10/17/16 08:56 Bedside Glucose 287 H 253 H 257 H 288 H Test 10/17/16 12:02 Bedside Glucose 384 H Medications Current Medications Acetaminophen (Tylenol Supp) 650 mg Q6H PRN [place] PAIN LEVEL 1-3 OR FEVER; Start 09/30/16 at 19:00 Acetaminophen (Tylenol Tab) 650 mg Q6H PRN PO PAIN LEVEL 1-3 OR FEVER; Start at 19:00 Aspirin (Halfprin) 81 mg DAILY PO Last administered on 10/17/16 11:01; Admin Dose 81 MG; Start 10/01/16 at 09:00 Atorvastatin Calcium (Lipitor) 80 mg DAILY@21 PO Last administered on 20:55; Admin Dose 80 MG; Start 09/30/16 at 21:00 Bisacodyl (Dulcolax) 5 mg DAILY PRN PO CONSTIPATION Last administered on 08:32; Admin Dose 5 MG; Start 09/30/16 at 19:00 Bisacodyl (Dulcolax Supp) 10 mg DAILY PRN [place] CONSTIPATION Last administered on 10/06/16 20:32; Admin Dose 10 MG; Start 09/30/16 at 19:00 Clopidogrel Bisulfate (plaVIX) 75 mg DAILY PO Last administered on 10/17/16 11 :01; Admin Dose 75 MG; Start 10/01/16 at 09:00 Docusate Sodium (Colace) 100 mg Q12H PRN PO CONSTIPATION Last administered on 08:42; Admin Dose 100 MG; Start 09/30/16 at 19:00 Enoxaparin Sodium (Lovenox) 30 mg DAILY SC Last administered on 10/17/16 11:01 ; Admin Dose 30 MG; Start 10/01/16 at 09:00 Famotidine (Pepcid) 20 mg QHS PO Last administered on 10/16/16 20:56; Admin Dose 20 MG; Start 09/30/16 at 21:00 Hydralazine HCl (Apresoline) 10 mg Q6H PRN IV ELEVATED BP SBP>160 Last administered on 10/08/16 08:48; Admin Dose 10 MG; Start 09/30/16 at 19:00 Acetaminophen/ Hydrocodone Bitart ([place] (5/325)) 1 tab Q6H PRN PO MODERATE PAIN LEVEL 4-6 Last administered on 10/03/16 12:29; Admin Dose 1 TAB; Start at 19:00 Metoprolol Succinate (Toprol Xl) 50 mg BID PO Last administered on 10/17/16 11 :00; Admin Dose 50 MG; Start 09/30/16 at 21:00 Morphine Sulfate (morphine) 2 mg Q4H PRN IV SEVERE PAIN LEVEL 7-10; Start 09/30 at 19:00 Ondansetron HCl (Zofran Inj) 4 mg Q6H PRN IV NAUSEA AND/OR VOMITING; Start at 19:00 Solifenacin (Vesicare) 5 mg DAILY PO Last administered on 10/17/16 11:01; Admin Dose 5 MG; Start 10/01/16 at 09:00 Docusate Sodium (Colace) 100 mg BID PO Last administered on 10/17/16 11:01; Admin Dose 100 MG; Start 09/30/16 at 21:00 Senna (Senokot) 1 tab HS PO Last administered on 10/16/16 20:56; Admin Dose 1 TAB; Start 09/30/16 at 21:00 Magnesium Hydroxide (Milk Of Mag) 30 ml BID PRN PO CONSTIPATION; Start at 19:30 Lactulose (Enulose) 20 gm DAILY PRN PO CONSTIPATION Last administered on 08:41; Admin Dose 20 GM; Start 09/30/16 at 19:30 Miscellaneous Information 1 ea NOTE XX ; Start 09/30/16 at 19:30 Glucose (Glutose) 15 gm Q15M PRN PO DECREASED GLUCOSE; Start 09/30/16 at 19:30 Glucose (Glutose) 22.5 gm Q15M PRN PO DECREASED GLUCOSE; Start 09/30/16 at 19: 30 Dextrose (D50w Syringe) 25 ml Q15M PRN IV DECREASED GLUCOSE; Start 09/30/16 at 19:30 Dextrose (D50w Syringe) 50 ml Q15M PRN IV DECREASED GLUCOSE Last administered on 10/10/16 23:24; Admin Dose 50 ML; Start 09/30/16 at 19:30 Glucagon (Glucagen) 1 mg Q15M PRN IM DECREASED GLUCOSE; Start 09/30/16 at 19:30 Glucose (Glutose) 15 gm Q15M PRN BUCCAL DECREASED GLUCOSE Last administered on 10/11/16 17:38; Admin Dose 15 GM; Start 09/30/16 at 19:30 Patient Own Medication 1 ea DAILY BOTH EYES Last administered on 10/15/16 08: 17; Admin Dose 1 EA; Start 10/03/16 at 12:00 Linagliptin (Tradjenta) 5 mg DAILY PO Last administered on 10/17/16 11:00; Admin Dose 5 MG; Start 10/07/16 at 09:00 Sodium Biphosphate/ Sodium Phosphate (Fleet Enema) 133 ml DAILY PRN [place] CONSTIPATION; Start 10/07/16 at 10:00 Polyethylene Glycol (Miralax) 17 gm DAILY PRN PO CONSTIPATION; Start 10/07/16 at 11:00 Insulin Glargine (Lantus) 44 unit DAILY SC Last administered on 10/17/16 09:03 ; Admin Dose 44 UNIT; Start 10/11/16 at 09:00 Cyclosporine (Restasis) 1 drop Q12 BOTH EYES Last administered on 10/17/16 11: 00; Admin Dose 1 DROP; Start 10/11/16 at 09:00 Gabapentin (Neurontin) 300 mg BID PO Last administered on 10/17/16 11:01; Admin Dose 300 MG; Start 10/12/16 at 09:00 Assessment/Plan Chief Complaint/Hosp Course IMPRESSION: 1. Recent cerebrovascular accident. 2. Resolved, encephalopathy 3. L1 compression fractures, likely cause of her low back pain. 4. History of insulin-dependent diabetes 5. Essential hypertension. PLAN: 1. Continue physical therapy 2. Endocrinology recommendations 3. Continue antihypertensives. 4. DVT and GI prophylaxis. Problems: SOCORRO GARBER MD, [facility] October 17, 2016 15:45
[2016-10-17] MEDS: metFORMIN 500 MG TAB PO SCH (18:09)
[2016-10-17 20:31] VITALS: BP 165/76; RESP 18
[2016-10-17] MEDS: ATORVASTATIN 80 MG TAB PO SCH (21:22)
[2016-10-17] MEDS: SENNA TAB PO SCH (21:22)
[2016-10-17] MEDS: FAMOTIDINE 20 MG TAB PO SCH (21:22)
[2016-10-18] MEDS: DOCUSATE SODIUM 100 MG CAP PO SCH ×2 (08:15→20:37)
[2016-10-18] MEDS: ASPIRIN (EC) 81 MG TAB PO SCH (08:15)
[2016-10-18] MEDS: CLOPIDOGREL 75 MG TAB PO SCH (08:15)
[2016-10-18] MEDS: LINAGLIPTIN 5 MG TABLET PO SCH (08:15)
[2016-10-18] MEDS: GABAPENTIN 300 MG CAP PO SCH ×2 (08:16→20:38)
[2016-10-18] MEDS: METOPROLOL (XL) 50 MG TAB PO SCH ×2 (08:16→20:37)
[2016-10-18] MEDS: SOLIFENACIN 5 MG TAB PO SCH (08:17)
[2016-10-18] MEDS: INSULIN ASPART [NOVOLOG] 3 ML PEN SC SCH ×6 (08:18→17:35)
[2016-10-18] MEDS: INSULIN GLARGINE [LANtus] 3 ML PEN SC SCH (08:19)
[2016-10-18] MEDS: CYCLOSPORINE 0.05% OPH DROPERETTE BOTH EYES SCH ×2 (08:20→20:36)
[2016-10-18] MEDS: ENOXAPARIN 30 MG/0.3 ML SYG SC SCH (08:20)
[2016-10-18] MEDS: PAZEO BOTH EYES SCH (08:37)
[2016-10-18] MEDS: EYE BOTH EYES SCH (08:37)
[2016-10-18 08:38] VITALS: BP 149/73; PULSE 70; RESP 16
--- NOTE | 2016-10-18 13:19 | PN ---
Date/Time of Note Date/Time of Note DATE: 10/18/16 TIME: 13:16 Assessment/Plan VTE Prophylaxis VTE Prophylaxis Intervention: LMWH Lines/Catheters IV Catheter Type (from Nrs): [facility] Urinary Cath still in place: No Assessment/Plan Assessment/Plan 1. Toxic metabolic encephalopathy in the setting of UTI/uremia and acute on chronic kidney disease, also with recent ischemic CVA, with impaired mobility/ gait/ADLs/cognition, aphasia, and dysphagia. Continue PT/OT/ST. Mod assist for supine to sit, min assist for rolling. Max assist for sit to stand transfers. Medical management per internal medicine. Continue secondary stroke prevention. 2. Chronic kidney disease. Continue to monitor renal function. Internal medicine following. 3. Hypertension. Internal medicine medically managing. Continue to monitor blood pressures. 4. Diabetes mellitus type 2. Managed per endocrinology, on insulin regimen. Continue to monitor blood sugars. 5. Anemia. Continue to monitor hemoglobin/hematocrit. 6. Old L1 compression fracture. Continue pain regimen. 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 Patient reports no acute complaints. Nursing reports no acute overnight events. ROS: Denies chest pain, no shortness of breath, no abdominal pain, no nausea, no vomiting, no chills. Exam/Review of Systems Vital Signs Vitals Vital Signs Date Time Temp Pulse Resp B/P Pulse Ox O2 Delivery O2 Flow Rate FiO2 10/18/16 08:38 97.9 70 16 149/73 96 Room Air Intake and Output 10/17/16 10/17/16 10/18/16 15:00 23:00 07:00 Intake Total 820 ml 360 ml 200 ml Balance 820 ml 360 ml 200 ml Exam General: Awake, alert, no acute distress CV: Regular rate, s1s2 Lungs: Respirations nonlabored, no wheezing or crackles Abdomen soft, nontender Extremities without cyanosis, no new swelling Neuro: No new focal changes. Follows simple commands. Results Results 24 hrs Laboratory Tests Test 10/17/16 18:02 10/17/16 21:21 10/18/16 02:20 10/18/16 07:49 Bedside Glucose 112 188 210 279 H Test 10/18/16 12:09 Bedside Glucose 205 Medications Medications Current Medications Acetaminophen (Tylenol Supp) [address] PAIN LEVEL 1-3 OR FEVER; Start 09/30/16 at 19:00 Acetaminophen (Tylenol Tab) 650 mg Q6H PRN PO PAIN LEVEL 1-3 OR FEVER; Start at 19:00 Aspirin (Halfprin) 81 mg DAILY PO Last administered on 10/18/16 08:15; Admin Dose 81 MG; Start 10/01/16 at 09:00 Atorvastatin Calcium (Lipitor) 80 mg DAILY@21 PO Last administered on 21:22; Admin Dose 80 MG; Start 09/30/16 at 21:00 Bisacodyl (Dulcolax) 5 mg DAILY PRN PO CONSTIPATION Last administered on 08:32; Admin Dose 5 MG; Start 09/30/16 at 19:00 Bisacodyl (Dulcolax Supp) [address] CONSTIPATION Last administered on 10/06/16 20:32; Admin Dose 10 MG; Start 09/30/16 at 19:00 Clopidogrel Bisulfate (plaVIX) 75 mg DAILY PO Last administered on 10/18/16 08 :15; Admin Dose 75 MG; Start 10/01/16 at 09:00 Docusate Sodium (Colace) 100 mg Q12H PRN PO CONSTIPATION Last administered on 08:42; Admin Dose 100 MG; Start 09/30/16 at 19:00 Enoxaparin Sodium (Lovenox) 30 mg DAILY SC Last administered on 10/18/16 08:20 ; Admin Dose 30 MG; Start 10/01/16 at 09:00 Famotidine (Pepcid) 20 mg QHS PO Last administered on 10/17/16 21:22; Admin Dose 20 MG; Start 09/30/16 at 21:00 Hydralazine HCl (Apresoline) 10 mg Q6H PRN IV ELEVATED BP SBP>160 Last administered on 10/08/16 08:48; Admin Dose 10 MG; Start 09/30/16 at 19:00 Acetaminophen/ Hydrocodone Bitart ([place] (5/325)) 1 tab Q6H PRN PO MODERATE PAIN LEVEL 4-6 Last administered on 10/03/16 12:29; Admin Dose 1 TAB; Start at 19:00 Metoprolol Succinate (Toprol Xl) 50 mg BID PO Last administered on 10/18/16 08 :16; Admin Dose 50 MG; Start 09/30/16 at 21:00 Morphine Sulfate (morphine) 2 mg Q4H PRN IV SEVERE PAIN LEVEL 7-10; Start 09/30 at 19:00 Ondansetron HCl (Zofran Inj) 4 mg Q6H PRN IV NAUSEA AND/OR VOMITING; Start at 19:00 Solifenacin (Vesicare) 5 mg DAILY PO Last administered on 10/18/16 08:17; Admin Dose 5 MG; Start 10/01/16 at 09:00 Docusate Sodium (Colace) 100 mg BID PO Last administered on 10/18/16 08:15; Admin Dose 100 MG; Start 09/30/16 at 21:00 Senna (Senokot) 1 tab HS PO Last administered on 10/17/16 21:22; Admin Dose 1 TAB; Start 09/30/16 at 21:00 Magnesium Hydroxide (Milk Of Mag) 30 ml BID PRN PO CONSTIPATION; Start at 19:30 Lactulose (Enulose) 20 gm DAILY PRN PO CONSTIPATION Last administered on 08:41; Admin Dose 20 GM; Start 09/30/16 at 19:30 Miscellaneous Information 1 ea NOTE XX ; Start 09/30/16 at 19:30 Glucose (Glutose) 15 gm Q15M PRN PO DECREASED GLUCOSE; Start 09/30/16 at 19:30 Glucose (Glutose) 22.5 gm Q15M PRN PO DECREASED GLUCOSE; Start 09/30/16 at 19: 30 Dextrose (D50w Syringe) 25 ml Q15M PRN IV DECREASED GLUCOSE; Start 09/30/16 at 19:30 Dextrose (D50w Syringe) 50 ml Q15M PRN IV DECREASED GLUCOSE Last administered on 10/10/16 23:24; Admin Dose 50 ML; Start 09/30/16 at 19:30 Glucagon (Glucagen) 1 mg Q15M PRN IM DECREASED GLUCOSE; Start 09/30/16 at 19:30 Glucose (Glutose) 15 gm Q15M PRN BUCCAL DECREASED GLUCOSE Last administered on 10/11/16 17:38; Admin Dose 15 GM; Start 09/30/16 at 19:30 Patient Own Medication 1 ea DAILY BOTH EYES Last administered on 10/18/16 08: 37; Admin Dose 1 EA; Start 10/03/16 at 12:00 Linagliptin (Tradjenta) 5 mg DAILY PO Last administered on 10/18/16 08:15; Admin Dose 5 MG; Start 10/07/16 at 09:00 Sodium Biphosphate/ Sodium Phosphate (Fleet Enema) [address] CONSTIPATION; Start 10/07/16 at 10:00 Polyethylene Glycol (Miralax) 17 gm DAILY PRN PO CONSTIPATION; Start 10/07/16 at 11:00 Insulin Glargine (Lantus) 44 unit DAILY SC Last administered on 10/18/16 08:19 ; Admin Dose 44 UNIT; Start 10/11/16 at 09:00 Cyclosporine (Restasis) 1 drop Q12 BOTH EYES Last administered on 10/18/16 08: 20; Admin Dose 1 DROP; Start 10/11/16 at 09:00 Gabapentin (Neurontin) 300 mg BID PO Last administered on 10/18/16 08:16; Admin Dose 300 MG; Start 10/12/16 at 09:00 OUSMANE PISANO October 18, 2016 13:19
--- NOTE | 2016-10-18 15:30 | CONS ---
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 Received scheduled doses of insulin today. Will monitor and make needed adjustments. Consultation Date/Type/Reason Admit Date/Time Sep 30, 2016 at 17:35 Initial Consult Date 10/07/16 Type of Consultation: endocrine Referring Provider: SOCORRO GARBER MD, [facility] 24 HR Interval Summary Free Text/Dictation Ecuadorean speaking. Limited history. Per RN received insulin today. Subjective hx not possible: other Exam/Review of Systems Vital Signs Vitals Vital Signs Date Time Temp Pulse Resp B/P Pulse Ox O2 Delivery O2 Flow Rate FiO2 10/18/16 08:38 97.9 70 16 149/73 96 Room Air Intake and Output 10/17/16 10/17/16 10/18/16 15:00 23:00 07:00 Intake Total 820 ml 360 ml 200 ml Balance 820 ml 360 ml 200 ml Exam Lying comfortably in bed Constitutional: alert Eyes: EOMI, PERRL Neck: supple Respiratory: clear to auscultation Cardiovascular: regular rate and rhythm Gastrointestinal: soft Results Results 24 hrs Laboratory Tests Test 10/17/16 18:02 10/17/16 21:21 10/18/16 02:20 10/18/16 07:49 Bedside Glucose 112 188 210 279 H Test 10/18/16 12:09 Bedside Glucose 205 Medications Medications Current Medications Acetaminophen (Tylenol Supp) 650 mg Q6H PRN [place] PAIN LEVEL 1-3 OR FEVER; Start 09/30/16 at 19:00 Acetaminophen (Tylenol Tab) 650 mg Q6H PRN PO PAIN LEVEL 1-3 OR FEVER; Start at 19:00 Aspirin (Halfprin) 81 mg DAILY PO Last administered on 10/18/16 08:15; Admin Dose 81 MG; Start 10/01/16 at 09:00 Atorvastatin Calcium (Lipitor) 80 mg DAILY@21 PO Last administered on 21:22; Admin Dose 80 MG; Start 09/30/16 at 21:00 Bisacodyl (Dulcolax) 5 mg DAILY PRN PO CONSTIPATION Last administered on 08:32; Admin Dose 5 MG; Start 09/30/16 at 19:00 Bisacodyl (Dulcolax Supp) 10 mg DAILY PRN [place] CONSTIPATION Last administered on 10/06/16 20:32; Admin Dose 10 MG; Start 09/30/16 at 19:00 Clopidogrel Bisulfate (plaVIX) 75 mg DAILY PO Last administered on 10/18/16 08 :15; Admin Dose 75 MG; Start 10/01/16 at 09:00 Docusate Sodium (Colace) 100 mg Q12H PRN PO CONSTIPATION Last administered on 08:42; Admin Dose 100 MG; Start 09/30/16 at 19:00 Enoxaparin Sodium (Lovenox) 30 mg DAILY SC Last administered on 10/18/16 08:20 ; Admin Dose 30 MG; Start 10/01/16 at 09:00 Famotidine (Pepcid) 20 mg QHS PO Last administered on 10/17/16 21:22; Admin Dose 20 MG; Start 09/30/16 at 21:00 Hydralazine HCl (Apresoline) 10 mg Q6H PRN IV ELEVATED BP SBP>160 Last administered on 10/08/16 08:48; Admin Dose 10 MG; Start 09/30/16 at 19:00 Acetaminophen/ Hydrocodone Bitart ([place] (5/325)) 1 tab Q6H PRN PO MODERATE PAIN LEVEL 4-6 Last administered on 10/03/16 12:29; Admin Dose 1 TAB; Start at 19:00 Metoprolol Succinate (Toprol Xl) 50 mg BID PO Last administered on 10/18/16 08 :16; Admin Dose 50 MG; Start 09/30/16 at 21:00 Morphine Sulfate (morphine) 2 mg Q4H PRN IV SEVERE PAIN LEVEL 7-10; Start 09/30 at 19:00 Ondansetron HCl (Zofran Inj) 4 mg Q6H PRN IV NAUSEA AND/OR VOMITING; Start at 19:00 Solifenacin (Vesicare) 5 mg DAILY PO Last administered on 10/18/16 08:17; Admin Dose 5 MG; Start 10/01/16 at 09:00 Docusate Sodium (Colace) 100 mg BID PO Last administered on 10/18/16 08:15; Admin Dose 100 MG; Start 09/30/16 at 21:00 Senna (Senokot) 1 tab HS PO Last administered on 10/17/16 21:22; Admin Dose 1 TAB; Start 09/30/16 at 21:00 Magnesium Hydroxide (Milk Of Mag) 30 ml BID PRN PO CONSTIPATION; Start at 19:30 Lactulose (Enulose) 20 gm DAILY PRN PO CONSTIPATION Last administered on 08:41; Admin Dose 20 GM; Start 09/30/16 at 19:30 Miscellaneous Information 1 ea NOTE XX ; Start 09/30/16 at 19:30 Glucose (Glutose) 15 gm Q15M PRN PO DECREASED GLUCOSE; Start 09/30/16 at 19:30 Glucose (Glutose) 22.5 gm Q15M PRN PO DECREASED GLUCOSE; Start 09/30/16 at 19: 30 Dextrose (D50w Syringe) 25 ml Q15M PRN IV DECREASED GLUCOSE; Start 09/30/16 at 19:30 Dextrose (D50w Syringe) 50 ml Q15M PRN IV DECREASED GLUCOSE Last administered on 10/10/16 23:24; Admin Dose 50 ML; Start 09/30/16 at 19:30 Glucagon (Glucagen) 1 mg Q15M PRN IM DECREASED GLUCOSE; Start 09/30/16 at 19:30 Glucose (Glutose) 15 gm Q15M PRN BUCCAL DECREASED GLUCOSE Last administered on 10/11/16 17:38; Admin Dose 15 GM; Start 09/30/16 at 19:30 Patient Own Medication 1 ea DAILY BOTH EYES Last administered on 10/18/16 08: 37; Admin Dose 1 EA; Start 10/03/16 at 12:00 Linagliptin (Tradjenta) 5 mg DAILY PO Last administered on 10/18/16 08:15; Admin Dose 5 MG; Start 10/07/16 at 09:00 Sodium Biphosphate/ Sodium Phosphate (Fleet Enema) 133 ml DAILY PRN [place] CONSTIPATION; Start 10/07/16 at 10:00 Polyethylene Glycol (Miralax) 17 gm DAILY PRN PO CONSTIPATION; Start 10/07/16 at 11:00 Insulin Glargine (Lantus) 44 unit DAILY SC Last administered on 10/18/16 08:19 ; Admin Dose 44 UNIT; Start 10/11/16 at 09:00 Cyclosporine (Restasis) 1 drop Q12 BOTH EYES Last administered on 10/18/16 08: 20; Admin Dose 1 DROP; Start 10/11/16 at 09:00 Gabapentin (Neurontin) 300 mg BID PO Last administered on 10/18/16 08:16; Admin Dose 300 MG; Start 10/12/16 at 09:00 CECILIA HERBERT MD October 18, 2016 15:30
[2016-10-18] MEDS: GLUCOSE GEL 15 GRAM TUBE BUCCAL PRN (17:25)
[2016-10-18] MEDS: metFORMIN 500 MG TAB PO SCH (17:27)
[2016-10-18 20:00] VITALS: BP 135/59; RESP 20
[2016-10-18] MEDS: SENNA TAB PO SCH (20:37)
[2016-10-18] MEDS: FAMOTIDINE 20 MG TAB PO SCH (20:37)
[2016-10-18] MEDS: ATORVASTATIN 80 MG TAB PO SCH (20:37)
[2016-10-19 07:30] VITALS: BP 149/65; RESP 18
[2016-10-19 08:00] VITALS: BP 149/65; PULSE 78; RESP 16
[2016-10-19] MEDS: METOPROLOL (XL) 50 MG TAB PO SCH ×2 (08:05→20:34)
[2016-10-19] MEDS: ASPIRIN (EC) 81 MG TAB PO SCH (08:05)
[2016-10-19] MEDS: DOCUSATE SODIUM 100 MG CAP PO SCH ×2 (08:05→20:31)
[2016-10-19] MEDS: GABAPENTIN 300 MG CAP PO SCH ×2 (08:05→20:31)
[2016-10-19] MEDS: CLOPIDOGREL 75 MG TAB PO SCH (08:05)
[2016-10-19] MEDS: SOLIFENACIN 5 MG TAB PO SCH (08:05)
[2016-10-19] MEDS: LINAGLIPTIN 5 MG TABLET PO SCH (08:05)
[2016-10-19] MEDS: PAZEO BOTH EYES SCH (08:06)
[2016-10-19] MEDS: EYE BOTH EYES SCH (08:06)
[2016-10-19] MEDS: INSULIN ASPART [NOVOLOG] 3 ML PEN SC SCH ×4 (08:07→20:42)
[2016-10-19] MEDS: INSULIN GLARGINE [LANtus] 3 ML PEN SC SCH (08:08)
[2016-10-19] MEDS: ENOXAPARIN 30 MG/0.3 ML SYG SC SCH (08:09)
[2016-10-19] MEDS: CYCLOSPORINE 0.05% OPH DROPERETTE BOTH EYES SCH ×2 (08:19→20:42)
--- NOTE | 2016-10-19 09:58 | PN ---
Date/Time of Note Date/Time of Note DATE: 10/19/16 TIME: 09:51 Assessment/Plan VTE Prophylaxis VTE Prophylaxis Intervention: LMWH Lines/Catheters [facility]from [facility] Urinary Cath still in place: No Assessment/Plan Assessment/Plan 1. Toxic metabolic encephalopathy in the setting of UTI, uremia, acute on chronic kidney disease, with recent ischemic CVA with impaired mobility/gait/ ADLs/cognition, aphasia, and dysphagia. Continue secondary stroke prevention. Medical management per internal medicine. Currently SBA for grooming, mod assist for upper body dressing and total assist for lower body dressing. 2. Chronic kidney disease. Internal medicine following. Continue to monitor renal function. Avoid nephrotoxic agents. 3. Hypertension. Continue to monitor BP. Internal medicine medically managing. 4. Diabetes mellitus type 2. Blood sugars uncontrolled, hypoglycemic episode again yesterday. Endocrinology has adjusted insulin regimen. 5. Anemia. Continue to monitor hemoglobin/hematocrit. 6. Old L1 compression fracture. Continue pain regimen. 7. Given uncontrolled blood sugars with hypoglycemic episode again yesterday, discharge held today. Endocrinology has adjusted her insulin regimen. Continue to closely monitor blood sugars. Discharge home with family once medically cleared by internal medicine and endocrinology. Subjective 24 Hr Interval Summary Free Text/Dictation Rehab progress note Subjective/History: Had symptomatic hypoglycemic episode yesterday, blood sugar down to 40, given oral glucose with improvement. Patient without acute complaints this morning. ROS: Denies chest pain, no shortness of breath, no abdominal pain, no nausea or vomiting, no chills, no headache or dizziness. Exam/Review of Systems Vital Signs Vitals Vital Signs Date Time Temp Pulse Resp B/P Pulse Ox O2 Delivery O2 Flow Rate FiO2 10/19/16 08:00 98.3 78 16 149/65 96 Room Air Intake and Output 10/18/16 10/18/16 10/19/16 15:00 23:00 07:00 Intake Total 600 ml 240 ml 150 ml Balance 600 ml 240 ml 150 ml Exam General: Awake, alert, no acute distress CV: Regular rate, s1s2 Lungs: Symmetrical air entry bilaterally, no wheezing Abdomen soft, nontender Extremities without cyanosis, no new swelling Neuro: No new focal changes. Follows simple commands. Results Result Diagram: 10/18/16 1283 Results 24 hrs Laboratory Tests Test 10/18/16 12:09 10/18/16 16:54 10/18/16 17:22 10/18/16 17:54 Bedside Glucose 205 45 *L 40 *L 67 L Test 10/18/16 17:55 10/18/16 18:32 10/18/16 20:16 10/19/16 07:45 Glucose Level 68 L Bedside Glucose 103 177 207 Medications Medications Current Medications Acetaminophen (Tylenol Supp) 650 mg Q6H PRN [place] PAIN LEVEL 1-3 OR FEVER; Start 09/30/16 at 19:00 Acetaminophen (Tylenol Tab) 650 mg Q6H PRN PO PAIN LEVEL 1-3 OR FEVER; Start at 19:00 Aspirin (Halfprin) 81 mg DAILY PO Last administered on 10/19/16 08:05; Admin Dose 81 MG; Start 10/01/16 at 09:00 Atorvastatin Calcium (Lipitor) 80 mg DAILY@21 PO Last administered on 20:37; Admin Dose 80 MG; Start 09/30/16 at 21:00 Bisacodyl (Dulcolax) 5 mg DAILY PRN PO CONSTIPATION Last administered on 08:32; Admin Dose 5 MG; Start 09/30/16 at 19:00 Bisacodyl (Dulcolax Supp) 10 mg DAILY PRN [place] CONSTIPATION Last administered on 10/06/16 20:32; Admin Dose 10 MG; Start 09/30/16 at 19:00 Clopidogrel Bisulfate (plaVIX) 75 mg DAILY PO Last administered on 10/19/16 08 :05; Admin Dose 75 MG; Start 10/01/16 at 09:00 Docusate Sodium (Colace) 100 mg Q12H PRN PO CONSTIPATION Last administered on 08:42; Admin Dose 100 MG; Start 09/30/16 at 19:00 Enoxaparin Sodium (Lovenox) 30 mg DAILY SC Last administered on 10/19/16 08:09 ; Admin Dose 30 MG; Start 10/01/16 at 09:00 Famotidine (Pepcid) 20 mg QHS PO Last administered on 10/18/16 20:37; Admin Dose 20 MG; Start 09/30/16 at 21:00 Hydralazine HCl (Apresoline) 10 mg Q6H PRN IV ELEVATED BP SBP>160 Last administered on 10/08/16 08:48; Admin Dose 10 MG; Start 09/30/16 at 19:00 Acetaminophen/ Hydrocodone Bitart ([place] (5/325)) 1 tab Q6H PRN PO MODERATE PAIN LEVEL 4-6 Last administered on 10/03/16 12:29; Admin Dose 1 TAB; Start at 19:00 Metoprolol Succinate (Toprol Xl) 50 mg BID PO Last administered on 10/19/16 08 :05; Admin Dose 50 MG; Start 09/30/16 at 21:00 Morphine Sulfate (morphine) 2 mg Q4H PRN IV SEVERE PAIN LEVEL 7-10; Start 09/30 at 19:00 Ondansetron HCl (Zofran Inj) 4 mg Q6H PRN IV NAUSEA AND/OR VOMITING; Start at 19:00 Solifenacin (Vesicare) 5 mg DAILY PO Last administered on 10/19/16 08:05; Admin Dose 5 MG; Start 10/01/16 at 09:00 Docusate Sodium (Colace) 100 mg BID PO Last administered on 10/19/16 08:05; Admin Dose 100 MG; Start 09/30/16 at 21:00 Senna (Senokot) 1 tab HS PO Last administered on 10/18/16 20:37; Admin Dose 1 TAB; Start 09/30/16 at 21:00 Magnesium Hydroxide (Milk Of Mag) 30 ml BID PRN PO CONSTIPATION; Start at 19:30 Lactulose (Enulose) 20 gm DAILY PRN PO CONSTIPATION Last administered on 08:41; Admin Dose 20 GM; Start 09/30/16 at 19:30 Miscellaneous Information 1 ea NOTE XX ; Start 09/30/16 at 19:30 Glucose (Glutose) 15 gm Q15M PRN PO DECREASED GLUCOSE; Start 09/30/16 at 19:30 Glucose (Glutose) 22.5 gm Q15M PRN PO DECREASED GLUCOSE; Start 09/30/16 at 19: 30 Dextrose (D50w Syringe) 25 ml Q15M PRN IV DECREASED GLUCOSE; Start 09/30/16 at 19:30 Dextrose (D50w Syringe) 50 ml Q15M PRN IV DECREASED GLUCOSE Last administered on 10/10/16 23:24; Admin Dose 50 ML; Start 09/30/16 at 19:30 Glucagon (Glucagen) 1 mg Q15M PRN IM DECREASED GLUCOSE; Start 09/30/16 at 19:30 Glucose (Glutose) 15 gm Q15M PRN BUCCAL DECREASED GLUCOSE Last administered on 10/18/16 17:25; Admin Dose 15 GM; Start 09/30/16 at 19:30 Patient Own Medication 1 ea DAILY BOTH EYES Last administered on 10/19/16 08: 06; Admin Dose 1 EA; Start 10/03/16 at 12:00 Linagliptin (Tradjenta) 5 mg DAILY PO Last administered on 10/19/16 08:05; Admin Dose 5 MG; Start 10/07/16 at 09:00 Sodium Biphosphate/ Sodium Phosphate (Fleet Enema) 133 ml DAILY PRN [place] CONSTIPATION; Start 10/07/16 at 10:00 Polyethylene Glycol (Miralax) 17 gm DAILY PRN PO CONSTIPATION; Start 10/07/16 at 11:00 Insulin Glargine (Lantus) 44 unit DAILY SC Last administered on 10/19/16 08:08 ; Admin Dose 44 UNIT; Start 10/11/16 at 09:00 Cyclosporine (Restasis) 1 drop Q12 BOTH EYES Last administered on 10/19/16 08: 19; Admin Dose 1 DROP; Start 10/11/16 at 09:00 Gabapentin (Neurontin) 300 mg BID PO Last administered on 10/19/16 08:05; Admin Dose 300 MG; Start 10/12/16 at 09:00 OUSMANE PISANO October 19, 2016 09:58
--- NOTE | 2016-10-19 14:29 | CONS ---
Date/Time of Note Date/Time of Note DATE: 10/19/16 TIME: 14:28 Consult Date/Type/Reason Admit Date/Time Sep 30, 2016 at 17:35 Initial Consult Date 10/07/16 Type of Consultation: Pulm/IM Ordering Provider: SOCORRO GARBER MD, [facility] Subjective No events. Objective Vital Signs Date Time Temp Pulse Resp B/P Pulse Ox O2 Delivery O2 Flow Rate FiO2 10/19/16 08:00 98.3 78 16 149/65 96 Room Air Intake and Output 10/18/16 10/18/16 10/19/16 15:00 23:00 07:00 Intake Total 600 ml 240 ml 150 ml Balance 600 ml 240 ml 150 ml Exam HEENT: Neck supple; no JVD; no LAD CVS: RRR, S1 and S2 CHEST: Clear ABD: Soft, NT, + BS EXT: No c/c/e Results/Medications Result Diagram: 10/18/16 1755 Results 24 hrs Laboratory Tests Test 10/18/16 16:54 10/18/16 17:22 10/18/16 17:54 10/18/16 17:55 Bedside Glucose 45 *L 40 *L 67 L Glucose Level 68 L Test 10/18/16 18:32 10/18/16 20:16 10/19/16 07:45 10/19/16 11:45 Bedside Glucose 103 177 207 277 H Medications Current Medications Acetaminophen (Tylenol Supp) 650 mg Q6H PRN [place] PAIN LEVEL 1-3 OR FEVER; Start 09/30/16 at 19:00 Acetaminophen (Tylenol Tab) 650 mg Q6H PRN PO PAIN LEVEL 1-3 OR FEVER; Start at 19:00 Aspirin (Halfprin) 81 mg DAILY PO Last administered on 10/19/16 08:05; Admin Dose 81 MG; Start 10/01/16 at 09:00 Atorvastatin Calcium (Lipitor) 80 mg DAILY@21 PO Last administered on 20:37; Admin Dose 80 MG; Start 09/30/16 at 21:00 Bisacodyl (Dulcolax) 5 mg DAILY PRN PO CONSTIPATION Last administered on 08:32; Admin Dose 5 MG; Start 09/30/16 at 19:00 Bisacodyl (Dulcolax Supp) 10 mg DAILY PRN [place] CONSTIPATION Last administered on 10/06/16 20:32; Admin Dose 10 MG; Start 09/30/16 at 19:00 Clopidogrel Bisulfate (plaVIX) 75 mg DAILY PO Last administered on 10/19/16 08 :05; Admin Dose 75 MG; Start 10/01/16 at 09:00 Docusate Sodium (Colace) 100 mg Q12H PRN PO CONSTIPATION Last administered on 08:42; Admin Dose 100 MG; Start 09/30/16 at 19:00 Enoxaparin Sodium (Lovenox) 30 mg DAILY SC Last administered on 10/19/16 08:09 ; Admin Dose 30 MG; Start 10/01/16 at 09:00 Famotidine (Pepcid) 20 mg QHS PO Last administered on 10/18/16 20:37; Admin Dose 20 MG; Start 09/30/16 at 21:00 Hydralazine HCl (Apresoline) 10 mg Q6H PRN IV ELEVATED BP SBP>160 Last administered on 10/08/16 08:48; Admin Dose 10 MG; Start 09/30/16 at 19:00 Acetaminophen/ Hydrocodone Bitart ([place] (5/325)) 1 tab Q6H PRN PO MODERATE PAIN LEVEL 4-6 Last administered on 10/03/16 12:29; Admin Dose 1 TAB; Start at 19:00 Metoprolol Succinate (Toprol Xl) 50 mg BID PO Last administered on 10/19/16 08 :05; Admin Dose 50 MG; Start 09/30/16 at 21:00 Morphine Sulfate (morphine) 2 mg Q4H PRN IV SEVERE PAIN LEVEL 7-10; Start 09/30 at 19:00 Ondansetron HCl (Zofran Inj) 4 mg Q6H PRN IV NAUSEA AND/OR VOMITING; Start at 19:00 Solifenacin (Vesicare) 5 mg DAILY PO Last administered on 10/19/16 08:05; Admin Dose 5 MG; Start 10/01/16 at 09:00 Docusate Sodium (Colace) 100 mg BID PO Last administered on 10/19/16 08:05; Admin Dose 100 MG; Start 09/30/16 at 21:00 Senna (Senokot) 1 tab HS PO Last administered on 10/18/16 20:37; Admin Dose 1 TAB; Start 09/30/16 at 21:00 Magnesium Hydroxide (Milk Of Mag) 30 ml BID PRN PO CONSTIPATION; Start at 19:30 Lactulose (Enulose) 20 gm DAILY PRN PO CONSTIPATION Last administered on 08:41; Admin Dose 20 GM; Start 09/30/16 at 19:30 Miscellaneous Information 1 ea NOTE XX ; Start 09/30/16 at 19:30 Glucose (Glutose) 15 gm Q15M PRN PO DECREASED GLUCOSE; Start 09/30/16 at 19:30 Glucose (Glutose) 22.5 gm Q15M PRN PO DECREASED GLUCOSE; Start 09/30/16 at 19: 30 Dextrose (D50w Syringe) 25 ml Q15M PRN IV DECREASED GLUCOSE; Start 09/30/16 at 19:30 Dextrose (D50w Syringe) 50 ml Q15M PRN IV DECREASED GLUCOSE Last administered on 10/10/16 23:24; Admin Dose 50 ML; Start 09/30/16 at 19:30 Glucagon (Glucagen) 1 mg Q15M PRN IM DECREASED GLUCOSE; Start 09/30/16 at 19:30 Glucose (Glutose) 15 gm Q15M PRN BUCCAL DECREASED GLUCOSE Last administered on 10/18/16 17:25; Admin Dose 15 GM; Start 09/30/16 at 19:30 Patient Own Medication 1 ea DAILY BOTH EYES Last administered on 10/19/16 08: 06; Admin Dose 1 EA; Start 10/03/16 at 12:00 Linagliptin (Tradjenta) 5 mg DAILY PO Last administered on 10/19/16 08:05; Admin Dose 5 MG; Start 10/07/16 at 09:00 Sodium Biphosphate/ Sodium Phosphate (Fleet Enema) 133 ml DAILY PRN [place] CONSTIPATION; Start 10/07/16 at 10:00 Polyethylene Glycol (Miralax) 17 gm DAILY PRN PO CONSTIPATION; Start 10/07/16 at 11:00 Insulin Glargine (Lantus) 44 unit DAILY SC Last administered on 10/19/16 08:08 ; Admin Dose 44 UNIT; Start 10/11/16 at 09:00 Cyclosporine (Restasis) 1 drop Q12 BOTH EYES Last administered on 10/19/16 08: 19; Admin Dose 1 DROP; Start 10/11/16 at 09:00 Gabapentin (Neurontin) 300 mg BID PO Last administered on 10/19/16 08:05; Admin Dose 300 MG; Start 10/12/16 at 09:00 Assessment/Plan Additional Assessment/Plan IMP: 1. Recent cerebrovascular accident. 2. Resolved, encephalopathy 3. L1 compression fractures, likely cause of her low back pain. 4. History of insulin-dependent diabetes 5. Essential hypertension. RECS: 1. PT/OT 2. BP control 3. DVT prophylaxis. PHYLLIS WHITTAKER MD October 19, 2016 14:29
[2016-10-19] MEDS: metFORMIN 500 MG TAB PO SCH (17:09)
--- NOTE | 2016-10-19 17:30 | CONS ---
Date/Time of Note Date/Time of Note DATE: 10/19/16 TIME: 17:27 Consult Date/Type/Reason Admit Date/Time Sep 30, 2016 at 17:35 Initial Consult Date 10/07/16 Type of Consultation: endocrine Reason for Consultation diabetes management Ordering Provider: SOCORRO GARBER MD, [facility] Subjective Patient's discharge postponed due to hypoglycemic event yesterday. No further events today. Patient complains of constipation. Objective Vital Signs Date Time Temp Pulse Resp B/P Pulse Ox O2 Delivery O2 Flow Rate FiO2 10/19/16 08:00 98.3 78 16 149/65 96 Room Air Intake and Output 10/18/16 10/18/16 10/19/16 15:00 23:00 07:00 Intake Total 600 ml 240 ml 150 ml Balance 600 ml 240 ml 150 ml Exam POC glucose reviewed Results/Medications Result Diagram: 10/18/16 1755 Results 24 hrs Laboratory Tests Test 10/18/16 17:54 10/18/16 17:55 10/18/16 18:32 10/18/16 20:16 Bedside Glucose 67 L 103 177 Glucose Level 68 L Test 10/19/16 07:45 10/19/16 11:45 10/19/16 16:56 Bedside Glucose 207 277 H 178 Medications Current Medications Acetaminophen (Tylenol Supp) 650 mg Q6H PRN [place] PAIN LEVEL 1-3 OR FEVER; Start 09/30/16 at 19:00 Acetaminophen (Tylenol Tab) 650 mg Q6H PRN PO PAIN LEVEL 1-3 OR FEVER; Start at 19:00 Aspirin (Halfprin) 81 mg DAILY PO Last administered on 10/19/16 08:05; Admin Dose 81 MG; Start 10/01/16 at 09:00 Atorvastatin Calcium (Lipitor) 80 mg DAILY@21 PO Last administered on 20:37; Admin Dose 80 MG; Start 09/30/16 at 21:00 Bisacodyl (Dulcolax) 5 mg DAILY PRN PO CONSTIPATION Last administered on 08:32; Admin Dose 5 MG; Start 09/30/16 at 19:00 Bisacodyl (Dulcolax Supp) 10 mg DAILY PRN [place] CONSTIPATION Last administered on 10/06/16 20:32; Admin Dose 10 MG; Start 09/30/16 at 19:00 Clopidogrel Bisulfate (plaVIX) 75 mg DAILY PO Last administered on 10/19/16 08 :05; Admin Dose 75 MG; Start 10/01/16 at 09:00 Docusate Sodium (Colace) 100 mg Q12H PRN PO CONSTIPATION Last administered on 08:42; Admin Dose 100 MG; Start 09/30/16 at 19:00 Enoxaparin Sodium (Lovenox) 30 mg DAILY SC Last administered on 10/19/16 08:09 ; Admin Dose 30 MG; Start 10/01/16 at 09:00 Famotidine (Pepcid) 20 mg QHS PO Last administered on 10/18/16 20:37; Admin Dose 20 MG; Start 09/30/16 at 21:00 Hydralazine HCl (Apresoline) 10 mg Q6H PRN IV ELEVATED BP SBP>160 Last administered on 10/08/16 08:48; Admin Dose 10 MG; Start 09/30/16 at 19:00 Acetaminophen/ Hydrocodone Bitart ([place] (5/325)) 1 tab Q6H PRN PO MODERATE PAIN LEVEL 4-6 Last administered on 10/03/16 12:29; Admin Dose 1 TAB; Start at 19:00 Metoprolol Succinate (Toprol Xl) 50 mg BID PO Last administered on 10/19/16 08 :05; Admin Dose 50 MG; Start 09/30/16 at 21:00 Morphine Sulfate (morphine) 2 mg Q4H PRN IV SEVERE PAIN LEVEL 7-10; Start 09/30 at 19:00 Ondansetron HCl (Zofran Inj) 4 mg Q6H PRN IV NAUSEA AND/OR VOMITING; Start at 19:00 Solifenacin (Vesicare) 5 mg DAILY PO Last administered on 10/19/16 08:05; Admin Dose 5 MG; Start 10/01/16 at 09:00 Docusate Sodium (Colace) 100 mg BID PO Last administered on 10/19/16 08:05; Admin Dose 100 MG; Start 09/30/16 at 21:00 Senna (Senokot) 1 tab HS PO Last administered on 10/18/16 20:37; Admin Dose 1 TAB; Start 09/30/16 at 21:00 Magnesium Hydroxide (Milk Of Mag) 30 ml BID PRN PO CONSTIPATION; Start at 19:30 Lactulose (Enulose) 20 gm DAILY PRN PO CONSTIPATION Last administered on 08:41; Admin Dose 20 GM; Start 09/30/16 at 19:30 Miscellaneous Information 1 ea NOTE XX ; Start 09/30/16 at 19:30 Glucose (Glutose) 15 gm Q15M PRN PO DECREASED GLUCOSE; Start 09/30/16 at 19:30 Glucose (Glutose) 22.5 gm Q15M PRN PO DECREASED GLUCOSE; Start 09/30/16 at 19: 30 Dextrose (D50w Syringe) 25 ml Q15M PRN IV DECREASED GLUCOSE; Start 09/30/16 at 19:30 Dextrose (D50w Syringe) 50 ml Q15M PRN IV DECREASED GLUCOSE Last administered on 10/10/16 23:24; Admin Dose 50 ML; Start 09/30/16 at 19:30 Glucagon (Glucagen) 1 mg Q15M PRN IM DECREASED GLUCOSE; Start 09/30/16 at 19:30 Glucose (Glutose) 15 gm Q15M PRN BUCCAL DECREASED GLUCOSE Last administered on 10/18/16 17:25; Admin Dose 15 GM; Start 09/30/16 at 19:30 Patient Own Medication 1 ea DAILY BOTH EYES Last administered on 10/19/16 08: 06; Admin Dose 1 EA; Start 10/03/16 at 12:00 Linagliptin (Tradjenta) 5 mg DAILY PO Last administered on 10/19/16 08:05; Admin Dose 5 MG; Start 10/07/16 at 09:00 Sodium Biphosphate/ Sodium Phosphate (Fleet Enema) 133 ml DAILY PRN [place] CONSTIPATION; Start 10/07/16 at 10:00 Polyethylene Glycol (Miralax) 17 gm DAILY PRN PO CONSTIPATION; Start 10/07/16 at 11:00 Insulin Glargine (Lantus) 44 unit DAILY SC Last administered on 10/19/16 08:08 ; Admin Dose 44 UNIT; Start 10/11/16 at 09:00 Cyclosporine (Restasis) 1 drop Q12 BOTH EYES Last administered on 10/19/16 08: 19; Admin Dose 1 DROP; Start 10/11/16 at 09:00 Gabapentin (Neurontin) 300 mg BID PO Last administered on 10/19/16 08:05; Admin Dose 300 MG; Start 10/12/16 at 09:00 Assessment/Plan Problems: (1) Diabetes mellitus type 2 in obese Additional Assessment/Plan Insulin doses decreased. Target blood glucose 100-200 mg/dl. CECILIA HERBERT MD October 19, 2016 17:30
[2016-10-19 20:29] VITALS: BP 151/69; PULSE 90; RESP 16
[2016-10-19] MEDS: ATORVASTATIN 80 MG TAB PO SCH (20:31)
[2016-10-19] MEDS: FAMOTIDINE 20 MG TAB PO SCH (20:31)
[2016-10-19] MEDS: SENNA TAB PO SCH (20:32)
[2016-10-20 08:00] VITALS: BP 140/70; PULSE 85; RESP 19
[2016-10-20] MEDS: INSULIN ASPART [NOVOLOG] 3 ML PEN SC SCH ×3 (08:24→17:50)
[2016-10-20] MEDS: EYE BOTH EYES SCH (09:00)
[2016-10-20] MEDS: CYCLOSPORINE 0.05% OPH DROPERETTE BOTH EYES SCH ×2 (09:00→20:02)
[2016-10-20] MEDS: PAZEO BOTH EYES SCH (09:00)
[2016-10-20] MEDS: INSULIN GLARGINE [LANtus] 3 ML PEN SC SCH (09:09)
[2016-10-20] MEDS: ENOXAPARIN 30 MG/0.3 ML SYG SC SCH (09:10)
[2016-10-20] MEDS: SOLIFENACIN 5 MG TAB PO SCH (11:15)
[2016-10-20] MEDS: CLOPIDOGREL 75 MG TAB PO SCH (11:15)
[2016-10-20] MEDS: DOCUSATE SODIUM 100 MG CAP PO SCH (11:15)
[2016-10-20] MEDS: GABAPENTIN 300 MG CAP PO SCH ×2 (11:15→20:00)
[2016-10-20] MEDS: ASPIRIN (EC) 81 MG TAB PO SCH (11:15)
[2016-10-20] MEDS: METOPROLOL (XL) 50 MG TAB PO SCH ×2 (11:16→21:40)
[2016-10-20] MEDS: LINAGLIPTIN 5 MG TABLET PO SCH (11:16)
--- NOTE | 2016-10-20 13:50 | CONS ---
Date/Time of Note Date/Time of Note DATE: 10/20/16 TIME: 13:50 Consult Date/Type/Reason Admit Date/Time Sep 30, 2016 at 17:35 Type of Consultation: Internal medicine Ordering Provider: SOCORRO GARBER MD, [facility] Subjective Patient comfortable, sitting up in chair in no respiratory distress Objective Vital Signs Date Time Temp Pulse Resp B/P Pulse Ox O2 Delivery O2 Flow Rate FiO2 10/19/16 20:29 97.7 90 16 151/69 95 Room Air Intake and Output 10/19/16 10/19/16 10/20/16 15:00 23:00 07:00 Intake Total 1370 ml 200 ml Balance 1370 ml 200 ml Exam GENERAL: Well-nourished, well-developed lady, comfortable at rest, no acute distress. VITAL SIGNS: as above. NECK: Supple. No JVD or lymphadenopathy. CARDIAC: S1, S2, no added sounds or murmurs. CHEST: Diminished air entry bilaterally. ABDOMEN: Soft, nontender. No guarding or rebound. EXTREMITIES: No cyanosis, clubbing, or edema. NEUROLOGIC: Generalized weakness, but no focal deficits. Results/Medications Result Diagram: 10/18/16 1755 Results 24 hrs Laboratory Tests Test 10/19/16 16:56 10/19/16 20:35 10/20/16 08:22 10/20/16 12:19 Bedside Glucose 178 210 287 H 328 H Medications Current Medications Acetaminophen (Tylenol Supp) 650 mg Q6H PRN [place] PAIN LEVEL 1-3 OR FEVER; Start 09/30/16 at 19:00 Acetaminophen (Tylenol Tab) 650 mg Q6H PRN PO PAIN LEVEL 1-3 OR FEVER; Start at 19:00 Aspirin (Halfprin) 81 mg DAILY PO Last administered on 10/20/16 11:15; Admin Dose 81 MG; Start 10/01/16 at 09:00 Atorvastatin Calcium (Lipitor) 80 mg DAILY@21 PO Last administered on 20:31; Admin Dose 80 MG; Start 09/30/16 at 21:00 Bisacodyl (Dulcolax) 5 mg DAILY PRN PO CONSTIPATION Last administered on 08:32; Admin Dose 5 MG; Start 09/30/16 at 19:00 Bisacodyl (Dulcolax Supp) 10 mg DAILY PRN [place] CONSTIPATION Last administered on 10/06/16 20:32; Admin Dose 10 MG; Start 09/30/16 at 19:00 Clopidogrel Bisulfate (plaVIX) 75 mg DAILY PO Last administered on 10/20/16 11 :15; Admin Dose 75 MG; Start 10/01/16 at 09:00 Docusate Sodium (Colace) 100 mg Q12H PRN PO CONSTIPATION Last administered on 08:42; Admin Dose 100 MG; Start 09/30/16 at 19:00 Enoxaparin Sodium (Lovenox) 30 mg DAILY SC Last administered on 10/20/16 09:10 ; Admin Dose 30 MG; Start 10/01/16 at 09:00 Famotidine (Pepcid) 20 mg QHS PO Last administered on 10/19/16 20:31; Admin Dose 20 MG; Start 09/30/16 at 21:00 Hydralazine HCl (Apresoline) 10 mg Q6H PRN IV ELEVATED BP SBP>160 Last administered on 10/08/16 08:48; Admin Dose 10 MG; Start 09/30/16 at 19:00 Acetaminophen/ Hydrocodone Bitart ([place] (5/325)) 1 tab Q6H PRN PO MODERATE PAIN LEVEL 4-6 Last administered on 10/03/16 12:29; Admin Dose 1 TAB; Start at 19:00 Metoprolol Succinate (Toprol Xl) 50 mg BID PO Last administered on 10/20/16 11 :16; Admin Dose 50 MG; Start 09/30/16 at 21:00 Morphine Sulfate (morphine) 2 mg Q4H PRN IV SEVERE PAIN LEVEL 7-10; Start 09/30 at 19:00 Ondansetron HCl (Zofran Inj) 4 mg Q6H PRN IV NAUSEA AND/OR VOMITING; Start at 19:00 Solifenacin (Vesicare) 5 mg DAILY PO Last administered on 10/20/16 11:15; Admin Dose 5 MG; Start 10/01/16 at 09:00 Docusate Sodium (Colace) 100 mg BID PO Last administered on 10/20/16 11:15; Admin Dose 100 MG; Start 09/30/16 at 21:00 Senna (Senokot) 1 tab HS PO Last administered on 10/19/16 20:32; Admin Dose 1 TAB; Start 09/30/16 at 21:00 Magnesium Hydroxide (Milk Of Mag) 30 ml BID PRN PO CONSTIPATION; Start at 19:30 Lactulose (Enulose) 20 gm DAILY PRN PO CONSTIPATION Last administered on 08:41; Admin Dose 20 GM; Start 09/30/16 at 19:30 Miscellaneous Information 1 ea NOTE XX ; Start 09/30/16 at 19:30 Glucose (Glutose) 15 gm Q15M PRN PO DECREASED GLUCOSE; Start 09/30/16 at 19:30 Glucose (Glutose) 22.5 gm Q15M PRN PO DECREASED GLUCOSE; Start 09/30/16 at 19: 30 Dextrose (D50w Syringe) 25 ml Q15M PRN IV DECREASED GLUCOSE; Start 09/30/16 at 19:30 Dextrose (D50w Syringe) 50 ml Q15M PRN IV DECREASED GLUCOSE Last administered on 10/10/16 23:24; Admin Dose 50 ML; Start 09/30/16 at 19:30 Glucagon (Glucagen) 1 mg Q15M PRN IM DECREASED GLUCOSE; Start 09/30/16 at 19:30 Glucose (Glutose) 15 gm Q15M PRN BUCCAL DECREASED GLUCOSE Last administered on 10/18/16 17:25; Admin Dose 15 GM; Start 09/30/16 at 19:30 Patient Own Medication 1 ea DAILY BOTH EYES Last administered on 10/19/16 08: 06; Admin Dose 1 EA; Start 10/03/16 at 12:00 Linagliptin (Tradjenta) 5 mg DAILY PO Last administered on 10/20/16 11:16; Admin Dose 5 MG; Start 10/07/16 at 09:00 Sodium Biphosphate/ Sodium Phosphate (Fleet Enema) 133 ml DAILY PRN [place] CONSTIPATION; Start 10/07/16 at 10:00 Polyethylene Glycol (Miralax) 17 gm DAILY PRN PO CONSTIPATION; Start 10/07/16 at 11:00 Insulin Glargine (Lantus) 44 unit DAILY SC Last administered on 10/20/16 09:09 ; Admin Dose 44 UNIT; Start 10/11/16 at 09:00 Cyclosporine (Restasis) 1 drop Q12 BOTH EYES Last administered on 10/20/16 09: 00; Admin Dose 1 DROP; Start 10/11/16 at 09:00 Gabapentin (Neurontin) 300 mg BID PO Last administered on 10/20/16 11:15; Admin Dose 300 MG; Start 10/12/16 at 09:00 Assessment/Plan Chief Complaint/Hosp Course IMPRESSION: 1. Recent cerebrovascular accident. 2. Resolved, encephalopathy 3. L1 compression fractures, likely cause of her low back pain. 4. History of insulin-dependent diabetes 5. Essential hypertension. PLAN: 1. Continue physical therapy 2. Endocrinology recommendations 3. Continue antihypertensives. 4. DVT and GI prophylaxis. Discharge planning Problems: SOCORRO GARBER MD, [facility] October 20, 2016 13:50
[2016-10-20] MEDS: metFORMIN 500 MG TAB PO SCH (17:51)
--- NOTE | 2016-10-20 18:25 | CONS ---
Date/Time of Note Date/Time of Note DATE: 10/20/16 TIME: 18:18 Assessment/Plan Assessment/Plan Problems: (1) Diabetes mellitus type 2 in obese Status: Chronic Comment: Blood glucose levels continue to be erratic (see below). Pt. is type 2 diabetic as c-peptide levels indicate ongoing endogenous insulin production. However, due to insulin autoantibody positivity, she will continue to respond to insulin similar to a Type 1 diabetic with highly erratic and unpredictable blood glucose results. Stability will be difficulty to achieve. Therefore, she may continue the current insulin regimen on discharge. 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 This will continuously interfere with the actions of insulin creating a lack of predictability of effect. Some insulin might bind to antibody after administration while other amounts might be free to be effective. [id number] and islet cell ab are pending but this antibody will continuously interfere in the patient's treatment. Consultation Date/Type/Reason Admit Date/Time Sep 30, 2016 at 17:35 Initial Consult Date 10/07/16 Type of Consultation: Endocrinology Reason for Consultation T2DM management Referring Provider: SOCORRO GARBER MD, [facility] 24 HR Interval Summary Constitutional: no complaints Exam/Review of Systems Vital Signs Vitals VS - Last 72 Hours, by Label Date Time Temp Pulse Resp B/P Pulse Ox O2 Delivery O2 Flow Rate FiO2 10/20/16 08:00 98.8 85 19 140/70 96 Room Air 10/19/16 20:29 97.7 90 16 151/69 95 Room Air 10/19/16 08:00 98.3 78 16 149/65 96 Room Air 10/19/16 07:30 98.3 71 18 149/65 96 10/18/16 20:00 97.7 80 20 135/59 95 10/18/16 08:38 97.9 70 16 149/73 96 Room Air 10/17/16 20:31 98.6 100 18 165/76 96 Vital Signs Date Time Temp Pulse Resp B/P Pulse Ox O2 Delivery O2 Flow Rate FiO2 10/20/16 08:00 98.8 85 19 140/70 96 Room Air Intake and Output 10/19/16 10/19/16 10/20/16 15:00 23:00 07:00 Intake Total 1370 ml 200 ml Balance 1370 ml 200 ml Exam Constitutional: alert, obese, oriented Psych: nl mood/affect, no complaints Respiratory: clear to auscultation, normal air movement Cardiovascular: nl pulses, regular rate and rhythm, No edema, No murmurs/extra sounds, No rub Gastrointestinal: bowel sounds, nl liver, spleen, non-tender, soft, No mass, No rebound or guarding Musculoskeletal: nl extremities to inspection Extremities: normal pulses, No clubbing, No cyanosis, No edema 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: P[employer] II-XII intact, nl mental status, nl speech, nl strength Additional Comments Bedside Glucose - 72 Hours Test 10/17/16 21:21 10/18/16 02:20 10/18/16 07:49 10/18/16 12:09 Bedside Glucose 188mg/dL (70-220) 210mg/dL (70-220) 279mg/dL (70-220) H 205mg/dL (70-220) Test 10/18/16 16:54 10/18/16 17:22 10/18/16 17:54 10/18/16 18:32 Bedside Glucose 45mg/dL (70-220) *L 40mg/dL (70-220) *L 67mg/dL (70-220) L 103mg/dL (70-220) Test 10/18/16 20:16 10/19/16 07:45 10/19/16 11:45 10/19/16 16:56 Bedside Glucose 177mg/dL (70-220) 207mg/dL (70-220) 277mg/dL (70-220) H 178mg/dL (70-220) Test 10/19/16 20:35 10/20/16 08:22 10/20/16 12:19 10/20/16 17:42 Bedside Glucose 210mg/dL (70-220) 287mg/dL (70-220) H 328mg/dL (70-220) H 200mg/dL (70-220) Results Result Diagram: 10/18/16 4303 Results 24 hrs Laboratory Tests Test 10/19/16 20:35 10/20/16 08:22 10/20/16 12:19 10/20/16 17:42 Bedside Glucose 210 287 H 328 H 200 Medications Medications Current Medications Acetaminophen (Tylenol Supp) 650 mg Q6H PRN [place] PAIN LEVEL 1-3 OR FEVER; Start 09/30/16 at 19:00 Acetaminophen (Tylenol Tab) 650 mg Q6H PRN PO PAIN LEVEL 1-3 OR FEVER; Start at 19:00 Aspirin (Halfprin) 81 mg DAILY PO Last administered on 10/20/16 11:15; Admin Dose 81 MG; Start 10/01/16 at 09:00 Atorvastatin Calcium (Lipitor) 80 mg DAILY@21 PO Last administered on 20:31; Admin Dose 80 MG; Start 09/30/16 at 21:00 Bisacodyl (Dulcolax) 5 mg DAILY PRN PO CONSTIPATION Last administered on 08:32; Admin Dose 5 MG; Start 09/30/16 at 19:00 Bisacodyl (Dulcolax Supp) 10 mg DAILY PRN [place] CONSTIPATION Last administered on 10/06/16 20:32; Admin Dose 10 MG; Start 09/30/16 at 19:00 Clopidogrel Bisulfate (plaVIX) 75 mg DAILY PO Last administered on 10/20/16 11 :15; Admin Dose 75 MG; Start 10/01/16 at 09:00 Docusate Sodium (Colace) 100 mg Q12H PRN PO CONSTIPATION Last administered on 08:42; Admin Dose 100 MG; Start 09/30/16 at 19:00 Enoxaparin Sodium (Lovenox) 30 mg DAILY SC Last administered on 10/20/16 09:10 ; Admin Dose 30 MG; Start 10/01/16 at 09:00 Famotidine (Pepcid) 20 mg QHS PO Last administered on 10/19/16 20:31; Admin Dose 20 MG; Start 09/30/16 at 21:00 Hydralazine HCl (Apresoline) 10 mg Q6H PRN IV ELEVATED BP SBP>160 Last administered on 10/08/16 08:48; Admin Dose 10 MG; Start 09/30/16 at 19:00 Acetaminophen/ Hydrocodone Bitart ([place] (5/325)) 1 tab Q6H PRN PO MODERATE PAIN LEVEL 4-6 Last administered on 10/03/16 12:29; Admin Dose 1 TAB; Start at 19:00 Metoprolol Succinate (Toprol Xl) 50 mg BID PO Last administered on 10/20/16 11 :16; Admin Dose 50 MG; Start 09/30/16 at 21:00 Morphine Sulfate (morphine) 2 mg Q4H PRN IV SEVERE PAIN LEVEL 7-10; Start 09/30 at 19:00 Ondansetron HCl (Zofran Inj) 4 mg Q6H PRN IV NAUSEA AND/OR VOMITING; Start at 19:00 Solifenacin (Vesicare) 5 mg DAILY PO Last administered on 10/20/16 11:15; Admin Dose 5 MG; Start 10/01/16 at 09:00 Docusate Sodium (Colace) 100 mg BID PO Last administered on 10/20/16 11:15; Admin Dose 100 MG; Start 09/30/16 at 21:00 Senna (Senokot) 1 tab HS PO Last administered on 10/19/16 20:32; Admin Dose 1 TAB; Start 09/30/16 at 21:00 Magnesium Hydroxide (Milk Of Mag) 30 ml BID PRN PO CONSTIPATION; Start at 19:30 Lactulose (Enulose) 20 gm DAILY PRN PO CONSTIPATION Last administered on 08:41; Admin Dose 20 GM; Start 09/30/16 at 19:30 Miscellaneous Information 1 ea NOTE XX ; Start 09/30/16 at 19:30 Glucose (Glutose) 15 gm Q15M PRN PO DECREASED GLUCOSE; Start 09/30/16 at 19:30 Glucose (Glutose) 22.5 gm Q15M PRN PO DECREASED GLUCOSE; Start 09/30/16 at 19: 30 Dextrose (D50w Syringe) 25 ml Q15M PRN IV DECREASED GLUCOSE; Start 09/30/16 at 19:30 Dextrose (D50w Syringe) 50 ml Q15M PRN IV DECREASED GLUCOSE Last administered on 10/10/16 23:24; Admin Dose 50 ML; Start 09/30/16 at 19:30 Glucagon (Glucagen) 1 mg Q15M PRN IM DECREASED GLUCOSE; Start 09/30/16 at 19:30 Glucose (Glutose) 15 gm Q15M PRN BUCCAL DECREASED GLUCOSE Last administered on 10/18/16 17:25; Admin Dose 15 GM; Start 09/30/16 at 19:30 Patient Own Medication 1 ea DAILY BOTH EYES Last administered on 10/19/16 08: 06; Admin Dose 1 EA; Start 10/03/16 at 12:00 Linagliptin (Tradjenta) 5 mg DAILY PO Last administered on 10/20/16 11:16; Admin Dose 5 MG; Start 10/07/16 at 09:00 Sodium Biphosphate/ Sodium Phosphate (Fleet Enema) 133 ml DAILY PRN [place] CONSTIPATION; Start 10/07/16 at 10:00 Polyethylene Glycol (Miralax) 17 gm DAILY PRN PO CONSTIPATION; Start 10/07/16 at 11:00 Insulin Glargine (Lantus) 44 unit DAILY SC Last administered on 10/20/16 09:09 ; Admin Dose 44 UNIT; Start 10/11/16 at 09:00 Cyclosporine (Restasis) 1 drop Q12 BOTH EYES Last administered on 10/20/16 09: 00; Admin Dose 1 DROP; Start 10/11/16 at 09:00 Gabapentin (Neurontin) 300 mg BID PO Last administered on 10/20/16 11:15; Admin Dose 300 MG; Start 10/12/16 at 09:00 ZAINAB NAVA MD October 20, 2016 18:25
[2016-10-20] MEDS: ATORVASTATIN 80 MG TAB PO SCH (20:00)
[2016-10-20] MEDS: FAMOTIDINE 20 MG TAB PO SCH (20:00)
[2016-10-20 20:35] VITALS: BP 175/81; RESP 18
[2016-10-20 21:05] VITALS: BP 153/70; PULSE 94
[2016-10-21 18:11] LABS: ISLET CELL ANTIBODY SCREEN NEGATIVE (NEGATIVE)
== END 2016-10-20 21:05 | disposition home health service (06) | DRG 57 ==
LOC: VRC 17:35
PROVIDERS: ADMIT Physical Medicine & Rehabilitation; ATTEND Internal Medicine Pulmonary Disease
PROC: F07Z5FZ Bed Mobility Treatment using Assistive, Adaptive, Supportive or Protective Equipment (ICD-10-PCS; principal; 2016-10-01)
PROC: F07Z8FZ Transfer Training Treatment using Assistive, Adaptive, Supportive or Protective Equipment (ICD-10-PCS; 2016-10-01)
PROC: F07Z9FZ Gait Training/Functional Ambulation Treatment using Assistive, Adaptive, Supportive or Protective Equipment (ICD-10-PCS; 2016-10-01)
PROC: F08Z2FZ Grooming/Personal Hygiene Treatment using Assistive, Adaptive, Supportive or Protective Equipment (ICD-10-PCS; 2016-10-01)
PROC: F08Z1FZ Dressing Techniques Treatment using Assistive, Adaptive, Supportive or Protective Equipment (ICD-10-PCS; 2016-10-01)
PROC: F08Z0FZ Bathing/Showering Techniques Treatment using Assistive, Adaptive, Supportive or Protective Equipment (ICD-10-PCS; 2016-10-01)
DX: I69.351 Hemiplegia and hemiparesis following cerebral infarction affecting right dominant side (principal); N17.9 Acute kidney failure, unspecified; E11.22 Type 2 diabetes mellitus with diabetic chronic kidney disease; F03.90 Unspecified dementia, unspecified severity, without behavioral disturbance, psychotic disturbance, mood disturbance, and anxiety; E11.65 Type 2 diabetes mellitus with hyperglycemia; I12.9 Hypertensive chronic kidney disease with stage 1 through stage 4 chronic kidney disease, or unspecified chronic kidney disease; D64.9 Anemia, unspecified; M48.56XS Collapsed vertebra, not elsewhere classified, lumbar region, sequela of fracture; I69.322 Dysarthria following cerebral infarction; N18.9 Chronic kidney disease, unspecified; E03.9 Hypothyroidism, unspecified; I69.391 Dysphagia following cerebral infarction; R13.10 Dysphagia, unspecified; F06.31 Mood disorder due to known physiological condition with depressive features; Z79.4 Long term (current) use of insulin; Z79.02 Long term (current) use of antithrombotics/antiplatelets
CPT/HCPCS: 74000; 80048; 80053; 81003; 82947; 82962; 83735; 84100; 84681; 85025; 86337; 86341; 87081; 87086; 92507; 92523; 92526; 92610; 97110; 97112; 97116; 97150; 97163; 97167; 97530; 97535; 97542; A4310; J0360; J1650; J1815